=== PATIENT | male | born 1960 | race Caucasian/White ===

== ENCOUNTER 2023-07-27 22:14 | Observation (INO) | payer MEDICARE ==
[2023-07-27] MEDS ORDERED: BUMEX 1 MG IV ONE (22:38)
[2023-07-27] MEDS ORDERED: BUMEX 1 MG ONE (22:42)
[2023-07-27] MEDS ORDERED: Sodium Chloride 0.9% 1000 ML 1,000 ML ONE (22:42)
[2023-07-27] MEDS ORDERED: Sodium Chloride 0.9% 1000 ML 1,000 ML IV SCH (22:45)
--- NOTE | 2023-07-27 22:49 | ERPHSYRPT ---
- History of Present Illness Time Seen by Provider: 07/27/23 22:45 Source: patient Exam Limitations: no limitations Patient Subjective Stated Complaint: pt states that he has been short of breath for the past couple days Triage Nursing Assessment: pt came into the er via wheelchair; pt transferred self to cot; pt is axo x4; c/o SOB; no respiratory distress present; pt is able to talk in complete sentences; dry hacking cough present; clear lung sounds in all lobes; skin PDW; hypertensive Physician History: pt states that he has been short of breath for the past couple days Patient is 62-year-old male with significant past medical history of heart failure COPD recently moved from [place] to [place] 3 months ago. Patient was recently seen at [facility] emergency room for shortness of breath. Patient has never been seen here before. Patient is a poor historian. His main complaint is shortness of breath. He denies any chest pain fever chills nausea or vomiting. He says that he has a history of heart failure and this is the same way he feels when he is feeling up with the fluid. Hx of pacemaker Timing/Duration: day(s) (two days) Severity of Dyspnea-Max: moderate Severity of Dyspnea-Current: moderate Possible Cause: frequent episodes Associated Symptoms: edema, wheezing, ankle swelling, leg swelling, No cough, No chest pain/discomfort, No chills Allergies/Adverse Reactions: diphenhydramine [From Benadryl] Allergy (Verified 07/27/23 22:17) Difficulty Breathing Iodinated Contrast Media Allergy (Verified 07/27/23 22:17) Difficulty Breathing Home Medications: Unobtainable 07/27/23 [History] Hx Tetanus, Diphtheria Vaccination/Date Given: Yes Hx Influenza Vaccination/Date Given: Yes Hx Pneumococcal Vaccination/Date Given: Yes Travel Risk - International Travel Have you traveled outside of the country in past 3 weeks: No - Coronavirus Screening Are you exhibiting any of the following symptoms?: Yes Symptoms: Cough: New Onset, Shortness of Breath Close contact with a COVID-19 positive Pt in past 14-21 Days: No - Vaccine Status Have you recieved a Covid-19 vaccination: Yes 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: [employer] - Vaccination Dates Date of 2cond Vaccination (if applicable): n/a - Review of Systems Constitutional: No Fever, No Chills Eyes: No Symptoms Ears, Nose, & Throat: No Symptoms Respiratory: Dyspnea, Dyspnea on Exertion (TERESA), No Cough Cardiac: Edema, Orthopnea, PND, No Chest Pain, No Syncope Abdominal/Gastrointestinal: No Abdominal Pain, No Nausea, No Vomiting, No Diarrhea Genitourinary Symptoms: No Dysuria Musculoskeletal: No Back Pain, No Neck Pain Skin: No Rash Neurological: No Dizziness, No Focal Weakness, No Sensory Changes Psychological: No Symptoms Endocrine: No Symptoms All Other Systems: Reviewed and Negative - Past Medical History Pertinent Past Medical History: Yes Neurological History: Peripheral Neuropathy ENT History: Cataracts Cardiac History: Arrhythmia, Congestive Heart Failure, Hypertension Respiratory History: Bronchitis, CHF, COPD, Sleep Apnea Endocrine Medical History: Diabetes Type II Musculoskeletal History: Osteoarthritis GI Medical History: GERD History: No Pertinent History Psycho-Social History: Anxiety, Depression Male Reproductive Disorders: No Pertinent History Other Medical History: a.fib, restless leg - Past Surgical History Past Surgical History: Yes Neuro Surgical History: No Pertinent History Cardiac: Pacemaker Respiratory: No Pertinent History Gastrointestinal: Cholecystectomy Genitourinary: No Pertinent History Musculoskeletal: Amputation Male Surgical History: No Pertinent History Other Surgical History: cardiac ablation - Social History Smoking Status: Never smoker Exposure to second hand smoke: Yes Drug Use: none Patient Lives Alone: No - Nursing Vital Signs Nursing Vital Signs: Initial Vital Signs Temperature 97.6 F 07/27/23 22:16 Pulse Rate 76 07/27/23 22:16 Respiratory Rate 20 07/27/23 22:16 Blood Pressure 193/97 07/27/23 22:16 O2 Sat by Pulse Oximetry 99 07/27/23 22:16 Pain Scale Pain Intensity 4 - Physical Exam General Appearance: moderate distress, alert Eye Exam: PERRL/EOMI Neck Exam: normal inspection, supple, full range of motion, JVD, No carotid bruit Respiratory Exam: diminished breath sounds, crackles/rales, rhonchi, wheezing Cardiovascular/Chest Exam: normal heart sounds, regular rate/rhythm, edema, JVD, No gallop Abdominal/Gastrointestinal Exam: soft, No tenderness, No distention, No mass Extremity Exam: non-tender, normal range of motion, normal inspection, no calf tenderness, no pedal edema Neurologic Exam: alert, oriented x 3, cooperative, 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 nml as tested, sensation nml, No motor deficits Skin Exam: normal color, warm, No dry SpO2 Interpretation: normal SpO2: 97 O2 Delivery: Room Air - Course Nursing assessment & vital signs reviewed: Yes EKG Interpreted by Me: Non-specific ST Changes, Other (paced rhythm) - Radiology Exams Chest X-ray Interpretation: Reviewed by me (CHF changes), No Pneumonia Ordered Tests: Active Orders 24 hr Category Date Time Status 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 STAT Care 07/27/23 22:41 Active EKG-ER Only STAT Care 07/27/23 22:38 Active IV Insertion STAT Care 07/27/23 22:38 Active Oxygen-ED Only Nasal Cannula 2 lpm Care 07/27/23 22:38 Active Pulse Oximetry (ED) STAT Care 07/27/23 22:41 Active CHEST 1 VIEW (PORTABLE) Stat Exams 07/27/23 22:39 Taken CBC W DIFF Stat Lab 07/27/23 22:49 Completed CMP Stat Lab 07/27/23 22:49 Completed MAGNESIUM Stat Lab 07/27/23 22:49 Completed NT PRO BNPII Stat Lab 07/27/23 22:49 Completed POCT GLUCOSE Stat Lab 07/27/23 23:38 Completed TROPONIN Q4H Lab 07/27/23 22:49 Completed TROPONIN Q4H Lab 07/28/23 02:45 Ordered TROPONIN Q4H Lab 07/28/23 06:45 Ordered Medication Summary Generic Name Dose Route Start Last Admin Trade Name Freq PRN Reason Stop Dose Admin Sodium Chloride 1,000 mls @ 50 mls/hr 07/27/23 22:45 07/27/23 22:47 Sodium Chloride 0.9% 1000 Ml IV 08/26/23 22:44 50 mls/hr .Q20H JUAN Administration Discontinued Medications Generic Name Dose Route Start Last Admin Trade Name Freq PRN Reason Stop Dose Admin Bumetanide 1 mg 07/27/23 22:38 07/27/23 22:47 Bumetanide 0.25 Mg/Ml 4ml Vial IV 07/27/23 22:39 1 mg STAT ONE Administration Bumetanide Confirm 07/27/23 22:42 Bumetanide 0.25 Mg/Ml 4ml Vial Administered 07/27/23 22:43 Dose 1 mg .ROUTE .STK-MED ONE Insulin Human Regular 20 unit 07/27/23 23:27 Insulin Regular, Human 1 Unit IV 12/02/23 23:28 STAT ONE Insulin Human Regular 10 unit 07/27/23 23:46 Insulin Regular, Human 1 Unit IV 07/27/23 23:47 STAT ONE Lab/Rad Data: Laboratory Result Diagrams 07/27/23 22:49 07/27/23 22:49 Laboratory Results 07/27/23 07/27/23 07/27/23 Range/Units 23:38 22:49 22:49 WBC (4.0-10.5) x10^3/uL RBC (4.1-5.6) x10^6/uL Hgb (12.5-18.0) g/dL Hct (42-50) % MCV (78-100) fL MCH (26-32) pg MCHC (32-36) g/dL RDW (11.5-14.0) % Plt Count (150-450) x10^3/uL MPV (7.5-11.0) fL Gran % (36.0-66.0) % Immature Gran % (Auto) (0.00-0.4) % Nucleat RBC Rel Count (0.00-0.1) % Eos # (Auto) (0-0.5) x10^3/uL Immature Gran # (Auto) (0.00-0.03) x10^3u/L Absolute Lymphs (auto) (1.0-4.6) x10^3/uL Absolute Monos (auto) (0.0-1.3) x10^3/uL Absolute Nucleated RBC (0.00-0.01) x10^3u/L Lymphocytes % (24.0-44.0) % Monocytes % (0.0-12.0) % Eosinophils % (0.00-5.0) % Basophils % (0.0-0.4) % Absolute Granulocytes (1.4-6.9) x10^3/uL Basophils # (0-0.4) x10^3/uL Sodium (137-145) mmol/L Potassium (3.5-5.1) mmol/L Chloride (98-107) mmol/L Carbon Dioxide (22-30) mmol/L Anion Gap (5-15) MEQ/L BUN (9-20) mg/dL Creatinine (0.66-1.25) mg/dL Estimated GFR ML/MIN Glucose (74-106) mg/dL POC Glucometer 374 H (74 to 106) mg/dL Calcium (8.4-10.2) mg/dL Magnesium (1.6-2.3) mg/dL Total Bilirubin (0.2-1.3) mg/dL AST (17-59) U/L ALT (0-50) U/L Alkaline Phosphatase (38-126) U/L Troponin I 0.130 H* (0.000-0.034) ng/mL NT-Pro-B Natriuret Pep 6640 (<300) pg/mL Serum Total Protein (6.3-8.2) g/dL Albumin (3.5-5.0) g/dL 07/27/23 07/27/23 Range/Units 22:49 22:49 WBC 4.8 (4.0-10.5) x10^3/uL RBC 4.25 (4.1-5.6) x10^6/uL Hgb 12.1 L (12.5-18.0) g/dL Hct 38.5 L (42-50) % MCV 90.6 (78-100) fL MCH 28.5 (26-32) pg MCHC 31.4 L (32-36) g/dL RDW 13.0 (11.5-14.0) % Plt Count 219 (150-450) x10^3/uL MPV 10.5 (7.5-11.0) fL Gran % 73.4 H (36.0-66.0) % Immature Gran % (Auto) 0.2 (0.00-0.4) % Nucleat RBC Rel Count 0.0 (0.00-0.1) % Eos # (Auto) 0.04 (0-0.5) x10^3/uL Immature Gran # (Auto) 0.01 (0.00-0.03) x10^3u/L Absolute Lymphs (auto) 0.91 L (1.0-4.6) x10^3/uL Absolute Monos (auto) 0.27 (0.0-1.3) x10^3/uL Absolute Nucleated RBC 0.00 (0.00-0.01) x10^3u/L Lymphocytes % 19.1 L (24.0-44.0) % Monocytes % 5.7 (0.0-12.0) % Eosinophils % 0.8 (0.00-5.0) % Basophils % 0.8 (0.0-0.4) % Absolute Granulocytes 3.50 (1.4-6.9) x10^3/uL Basophils # 0.04 (0-0.4) x10^3/uL Sodium 132 L (137-145) mmol/L Potassium 4.0 (3.5-5.1) mmol/L Chloride 97 L (98-107) mmol/L Carbon Dioxide 28 (22-30) mmol/L Anion Gap 10.7 (5-15) MEQ/L BUN 16 (9-20) mg/dL Creatinine 0.98 (0.66-1.25) mg/dL Estimated GFR 86.1 ML/MIN Glucose 401 H (74-106) mg/dL POC Glucometer (74 to 106) mg/dL Calcium 8.0 L (8.4-10.2) mg/dL Magnesium 1.8 (1.6-2.3) mg/dL Total Bilirubin 0.40 (0.2-1.3) mg/dL AST 44 (17-59) U/L ALT 45 (0-50) U/L Alkaline Phosphatase 178 H (38-126) U/L Troponin I (0.000-0.034) ng/mL NT-Pro-B Natriuret Pep (<300) pg/mL Serum Total Protein 6.6 (6.3-8.2) g/dL Albumin 3.5 (3.5-5.0) g/dL - Progress Progress: improved, re-examined Air Movement: good Progress Note: 07/27/23 23:31 After bumetanide injection patient is feeling much better. Patient's shortness of breath is also much better. Patient has diuresed approximately 1 L. Patient blood sugar was also high so 20 units of Humulin R given. Patient is strongly advised to follow-up with primary care physician for further management of his diabetes and heart failure. Patient he is suggesting that he is going to move back to [place] with his regional doctor. He is still strongly advised to get a primary care physician. Local referrals for physicians given. Patient also understood verbalized instructions. Patient is strongly advised to stay on all the medication including for his diabetes and heart failure. Blood Culture(s) Obtained: No Antibiotics given: No Discussed with : Scot, Other Will see patient in: hospital (observation) Counseled pt/family regarding: lab results, diagnosis, need for follow-up, rad results Medical Desision Making - Social Determinants of Health Pt's dx & treatment plan are significantly limited by SDOH: financial hardships, limited education - Diagnostic Testing Diagnostic test were ordered, analyzed, and reviewed by me: Yes Radiological Interpretation: Interpreted by me, Reviewed by me - Risk of complications The pt has a mod risk of morbidity or mortality based on: Need for prescription drug management The pt has a high risk of morbidity or mortality based on: Decision regarding hospitilization or escalation of hosp level of care - Departure Departure Disposition: Observation Clinical Impression: Elevated troponin Acute exacerbation of CHF (congestive heart failure) Qualifiers: Heart failure type: combined systolic and diastolic Qualified Code(s): I50.43 - Acute on chronic combined systolic (congestive) and diastolic (congestive) heart failure Uncontrolled diabetes mellitus Qualifiers: Diabetes mellitus type: type 2 Glycemic state: with hyperglycemia Qualified Code(s): E11.65 - Type 2 diabetes mellitus with hyperglycemia Condition: Fair Critical Care Time: Yes Critical Care Time(excluding separately billable procedures): Critical 30-74 mins Referrals: DOCTOR,NO FAMILY [Primary Care Provider] - Follow Up with PCP/3 days Instructions: Heart Failure, Type 2 diabetes, Heart Failure, Adult (DC)
[2023-07-27 22:54] LABS: BASOPHIL % 0.8 % (0.0-0.4); Basophil (Absolute #) 0.04 x10^3/uL (0-0.4); Eosinophil % 0.8 % (0.00-5.0); Eosinophil (Absolute #) 0.04 x10^3/uL (0-0.5); Hematocrit 38.5 % (42-50); Hemoglobin 12.1 g/dL (12.5-18.0); IMMATURE GRAN # 0.01 x10^3u/L (0.00-0.03); IMMATURE GRAN % 0.2 % (0.00-0.4); Lymphocyte (Absolute #) 0.91 x10^3/uL (1.0-4.6); Lymphocytes % 19.1 % (24.0-44.0); Mean Cell Volume 90.6 fL (78-100); Mean Corpuscular Hemoglobin 28.5 pg (26-32); Mean Corpuscular Hgb Concent. 31.4 g/dL (32-36); Mean Platelet Volume 10.5 fL (7.5-11.0); Monocyte (Absolute #) 0.27 x10^3/uL (0.0-1.3); Monocytes % 5.7 % (0.0-12.0); Neutrophil % 73.4 % (36.0-66.0); Platelet Count 219 x10^3/uL (150-450); Red Blood Count 4.25 x10^6/uL (4.1-5.6); White Blood Count 4.8 x10^3/uL (4.0-10.5)
[2023-07-27 23:06] LABS: ALBUMIN 3.5 g/dL (3.5-5.0); ANION GAP 10.7 MEQ/L (5-15); BILIRUBIN,TOTAL 0.4 mg/dL (0.2-1.3); Creatinine 1 0.98 mg/dL (0.66-1.25); EST GLOMERULAR FILTRATION RATE 86.1 ML/MIN; MAGNESIUM 1.8 mg/dL (1.6-2.3); Total Protein 6.6 g/dL (6.3-8.2)
[2023-07-27] MEDS ORDERED: HUMULIN R IV ONE ×2 (23:27→23:46)
[2023-07-27] MEDS ORDERED: HUMULIN R ONE (23:52)
--- NOTE | 2023-07-28 00:26 | PCM.HP ---
History of Present Illness - Chief Complaint Chief Complaint: CHF Exacerbation History of Present Illness: is a 62 year old male with CHF, DM2 who presents with acute on chronic CHF with SOB, lower extremity swelling. No chest pain, nausea, vomiting, fevers, chills. Recieved diruretics in the ED and symptoms improved. - Review of Systems Constitutional: No Fever, No Chills Eyes: No Symptoms Ears, Nose, & Throat: No Symptoms Respiratory: No Cough, No Short Of Breath Cardiac: No Chest Pain, No Edema, No Syncope Abdominal/Gastrointestinal: No Abdominal Pain, No Nausea, No Vomiting, No Diarrhea Genitourinary Symptoms: No Dysuria Musculoskeletal: No Back Pain, No Neck Pain Skin: No Rash Neurological: No Dizziness, No Focal Weakness, No Sensory Changes Psychological: No Symptoms Endocrine: No Symptoms Hematologic/Lymphatic: No Symptoms Immunological/Allergic: No Symptoms Medications & Allergies Home Medications: Home Medication List Unobtainable 07/27/23 [History Confirmed 07/27/23] Allergies/Adverse Reactions: Allergies Allergy/AdvReac Type Severity Reaction Status Date / Time diphenhydramine Allergy Difficulty Verified 07/27/23 22:17 [From Benadryl] Breathing Iodinated Contrast Media Allergy Difficulty Verified 07/27/23 22:17 Breathing - Past Medical History Past Medical History: Yes Neurological History: Peripheral Neuropathy ENT History: Cataracts Cardiac History: Arrhythmia, Congestive Heart Failure, Hypertension Respiratory History: Bronchitis, CHF, COPD, Sleep Apnea Endocrine Medical History: Diabetes Type II Musculoskelatal History: Osteoarthritis GI Medical History: GERD History: No Pertinent History Pyscho-Social History: Anxiety, Depression Male Reproductive Disorders: No Pertinent History Comment: a.fib, restless leg - Past Surgical History Past Surgical History: Yes Neuro Surgical History: No Pertinent History Cardiac History: Pacemaker Respiratory Surgery: No Pertinent History GI Surgical History: Cholecystectomy Genitourinary Surgical Hx: No Pertinent History Musculskeletal Surgical Hx: Amputation Male Surgical History: No Pertinent History Other Surgical History: cardiac ablation - Social History Smoking Status: Never smoker Exposure to second hand smoke: Yes Alcohol: None Drug Use: none - Physical Exam Vital Signs: Vital Signs - 24 hr Temp Pulse Resp BP BP Pulse Ox 07/27/23 23:54 97 07/27/23 23:30 80 23 142/81 97 07/27/23 23:00 78 17 148/96 96 07/27/23 22:41 97 07/27/23 22:30 82 22 170/108 97 07/27/23 22:16 97.6 F 76 24 193/97 99 General Appearance: no apparent distress, alert Neurologic Exam: alert, oriented x 3, cooperative, normal mood/affect, nml cerebellar function, nml station & gait, sensation nml, No motor deficits Eye Exam: PERRL/EOMI, eyes nml inspection Ears, Nose, Throat Exam: normal ENT inspection, TMs normal, pharynx normal, moist mucous membranes Neck Exam: normal inspection, non-tender, supple, full range of motion Respiratory Exam: normal breath sounds, lungs clear, No respiratory distress Cardiovascular Exam: regular rate/rhythm, normal heart sounds, normal peripheral pulses Gastrointestinal/Abdomen Exam: soft, normal bowel sounds, No tenderness, No mass Back Exam: normal inspection, normal range of motion, No CVA tenderness, No vertebral tenderness Extremity Exam: normal inspection, normal range of motion, pelvis stable Skin Exam: normal color, warm, dry, No rash Lymphatic Exam: No adenopathy Results - Labs Lab/Micro Results: Lab Results-Last 24 Hours 07/27/23 07/27/23 07/27/23 Range/Units 22:49 22:49 22:49 WBC 4.8 (4.0-10.5) x10^3/uL RBC 4.25 (4.1-5.6) x10^6/uL Hgb 12.1 L (12.5-18.0) g/dL Hct 38.5 L (42-50) % MCV 90.6 (78-100) fL MCH 28.5 (26-32) pg MCHC 31.4 L (32-36) g/dL RDW 13.0 (11.5-14.0) % Plt Count 219 (150-450) x10^3/uL MPV 10.5 (7.5-11.0) fL Gran % 73.4 H (36.0-66.0) % Immature Gran % (Auto) 0.2 (0.00-0.4) % Nucleat RBC Rel Count 0.0 (0.00-0.1) % Eos # (Auto) 0.04 (0-0.5) x10^3/uL Immature Gran # (Auto) 0.01 (0.00-0.03) x10^3u/L Absolute Lymphs (auto) 0.91 L (1.0-4.6) x10^3/uL Absolute Monos (auto) 0.27 (0.0-1.3) x10^3/uL Absolute Nucleated RBC 0.00 (0.00-0.01) x10^3u/L Lymphocytes % 19.1 L (24.0-44.0) % Monocytes % 5.7 (0.0-12.0) % Eosinophils % 0.8 (0.00-5.0) % Basophils % 0.8 (0.0-0.4) % Absolute Granulocytes 3.50 (1.4-6.9) x10^3/uL Basophils # 0.04 (0-0.4) x10^3/uL Sodium 132 L (137-145) mmol/L Potassium 4.0 (3.5-5.1) mmol/L Chloride 97 L (98-107) mmol/L Carbon Dioxide 28 (22-30) mmol/L Anion Gap 10.7 (5-15) MEQ/L BUN 16 (9-20) mg/dL Creatinine 0.98 (0.66-1.25) mg/dL Estimated GFR 86.1 ML/MIN Glucose 401 H (74-106) mg/dL POC Glucometer (74 to 106) mg/dL Calcium 8.0 L (8.4-10.2) mg/dL Magnesium 1.8 (1.6-2.3) mg/dL Total Bilirubin 0.40 (0.2-1.3) mg/dL AST 44 (17-59) U/L ALT 45 (0-50) U/L Alkaline Phosphatase 178 H (38-126) U/L Troponin I 0.130 H* (0.000-0.034) ng/mL NT-Pro-B Natriuret Pep (<300) pg/mL Serum Total Protein 6.6 (6.3-8.2) g/dL Albumin 3.5 (3.5-5.0) g/dL 07/27/23 07/27/23 Range/Units 22:49 23:38 WBC (4.0-10.5) x10^3/uL RBC (4.1-5.6) x10^6/uL Hgb (12.5-18.0) g/dL Hct (42-50) % MCV (78-100) fL MCH (26-32) pg MCHC (32-36) g/dL RDW (11.5-14.0) % Plt Count (150-450) x10^3/uL MPV (7.5-11.0) fL Gran % (36.0-66.0) % Immature Gran % (Auto) (0.00-0.4) % Nucleat RBC Rel Count (0.00-0.1) % Eos # (Auto) (0-0.5) x10^3/uL Immature Gran # (Auto) (0.00-0.03) x10^3u/L Absolute Lymphs (auto) (1.0-4.6) x10^3/uL Absolute Monos (auto) (0.0-1.3) x10^3/uL Absolute Nucleated RBC (0.00-0.01) x10^3u/L Lymphocytes % (24.0-44.0) % Monocytes % (0.0-12.0) % Eosinophils % (0.00-5.0) % Basophils % (0.0-0.4) % Absolute Granulocytes (1.4-6.9) x10^3/uL Basophils # (0-0.4) x10^3/uL Sodium (137-145) mmol/L Potassium (3.5-5.1) mmol/L Chloride (98-107) mmol/L Carbon Dioxide (22-30) mmol/L Anion Gap (5-15) MEQ/L BUN (9-20) mg/dL Creatinine (0.66-1.25) mg/dL Estimated GFR ML/MIN Glucose (74-106) mg/dL POC Glucometer 374 H (74 to 106) mg/dL Calcium (8.4-10.2) mg/dL Magnesium (1.6-2.3) mg/dL Total Bilirubin (0.2-1.3) mg/dL AST (17-59) U/L ALT (0-50) U/L Alkaline Phosphatase (38-126) U/L Troponin I (0.000-0.034) ng/mL NT-Pro-B Natriuret Pep 6640 (<300) pg/mL Serum Total Protein (6.3-8.2) g/dL Albumin (3.5-5.0) g/dL - Radiology Impressions Radiology Exams & Impressions: Radiology Procedures Category Date Time Status CHEST 1 VIEW (PORTABLE) Stat Exams 07/27/23 22:39 Taken Assessment/Plan (1) Acute exacerbation of CHF (congestive heart failure) Current Visit: Yes Status: Acute Qualifiers: Heart failure type: combined systolic and diastolic Qualified Code(s): I50.43 - Acute on chronic combined systolic (congestive) and diastolic (congestive) heart failure Assessment & Plan: 1. Lasix 20 mg IV BID 2. Will need to do CHF education, will need start BB, Statin, KERMIT-I. Can consider in the AM and defer rest to outpatient. 3. I*Os Code(s): I50.9 - HEART FAILURE, UNSPECIFIED Telemedicine Encounter - Telemedicine Encounter Telemedicine Encounter: The entirety of this encounter was performed via Telemedicine"
[2023-07-28] MEDS ORDERED: VENTOLIN COMMON CANISTER IH PRN (04:45)
[2023-07-28 06:16] LABS: Hematocrit 36.5 % (42-50); Hemoglobin 11.4 g/dL (12.5-18.0); Mean Cell Volume 88.4 fL (78-100); Mean Corpuscular Hemoglobin 27.6 pg (26-32); Mean Corpuscular Hgb Concent. 31.2 g/dL (32-36); Platelet Count 204 x10^3/uL (150-450); Red Blood Count 4.13 x10^6/uL (4.1-5.6); Red Cell Distribution Width 12.9 % (11.5-14.0); White Blood Count 5.8 x10^3/uL (4.0-10.5)
[2023-07-28 06:49] LABS: ALBUMIN 3.2 g/dL (3.5-5.0); ANION GAP 10.7 MEQ/L (5-15); BILIRUBIN,TOTAL 0.4 mg/dL (0.2-1.3); Calcium 8.1 mg/dL (8.4-10.2); Creatinine 1 0.93 mg/dL (0.66-1.25); EST GLOMERULAR FILTRATION RATE 91.7 ML/MIN; Potassium 3.8 mmol/L (3.5-5.1); Total Protein 6.3 g/dL (6.3-8.2)
--- NOTE | 2023-07-28 08:03 | XRAY ---
Indication: Short of breath. Comparison: None Portable apical lordotic chest demonstrates borderline cardiomegaly, left pacemaker, mild pulmonary edema, and tiny bibasilar effusions. Mild/early cardiac decompensation offered for clinical consideration. Superposed pneumonia not completely excluded. Bony thorax intact.
[2023-07-28] MEDS ORDERED: Lasix 40 MG/4 ML IV ONE (08:30)
[2023-07-28] MEDS ORDERED: Zofran 4 MG/2 ML VIAL IV PRN (08:46)
[2023-07-28] MEDS ORDERED: Lasix 20 MG/2 ML IV SCH (10:00)
--- NOTE | 2023-07-28 10:02 | PCM.NOTE ---
Met with patient bedside. Endorses shortness of breath, cough with clear sputum, abdominal discomfort/distention, BLE tightness/edema and scrotal swelling. On exam BLE edema noted with multiple open wounds in various degrees of healing. Abdomen is distended and firm. Scrotal edema noted. Lasix 40mg ordered BID, lisinopril 10mg QD, lovenox prophylactic dosing, echo, doppler BLE, abd us, CT c/a/p. SSI moderate dosing with lantus 20u (may need adjustmentO. A1c noted at 13.56, patient needs diabetic education. Diet changed to low carb. Cards consult has been requested with echo pending. Trops are uptrending, EKG unremarkable. Attempting to obtain home med list as patient is poor historian and new to the area. Patient denies alcohol, drug use, or h/o smoking. Does have pmhx of DM, OA, KASHMIR, HTN, arrhythmias (with pacemaker), and GERD.
--- NOTE | 2023-07-28 10:33 | XRAY ---
CLINICAL HISTORY:anasarca COMPARISON:None. TECHNIQUE:A CT scan of the abdomen and pelvis was performed without IV contrast. Coronal and sagittal reconstructive images were also obtained. FINDINGS: Diffuse subcutaneous fat stranding was seen. Diffuse mesenteric fat stranding is also seen. Moderate bilateral pleural effusion was seen. The liver is normal in size. No focal or diffuse parenchymal abnormality. The portal vein, intrahepatic biliary radicals and the bile ducts are normal. Both adrenal glands are unremarkable. Tiny calcific foci seen in the spleen are likely benign. Almost complete fatty atrophy of the pancreas was seen. 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 Otherwise, the kidneys are unremarkable. They are normal in size and shape. No calculi or hydronephrosis. Status post cholecystectomy. The visualized small and large bowel loops are unremarkable. Fat-containing inguinal hernia seen on the left side. There is no evidence of significant enlargement of the mesenteric or retroperitoneal lymph nodes. The urinary bladder is unremarkable. The prostate is unremarkable. Vas deferns calcification is noted. No ascites seen. No evidence of pelvic lymphadenopathy. Moderate degenerative changes are seen in the visualized spine. IMPRESSION: Diffuse subcutaneous fat stranding was seen. Diffuse mesenteric fat stranding is also seen. Moderate bilateral pleural effusion was seen. Duplex right kidney. Almost complete fatty atrophy of the pancreas was seen. Fat containing left inguinal hernia. Electronically Signed by: Brandin Miles MD. (07/28/2023 10:28:52 EST)
[2023-07-28] MEDS: Zestril 10 MG PO SCH (10:52)
[2023-07-28] MEDS: ENOXAPARIN SODIUM SQ SCH (10:54)
[2023-07-28] MEDS: Cyclobenzaprine 10 MG PO PRN ×2 (11:41→19:57)
--- NOTE | 2023-07-28 11:44 | XRAY ---
CLINICAL HISTORY:anasarca COMPARISON:None. TECHNIQUE:Axial CT cuts were taken through the chest with multiplanar reformatting and without contrast administration. FINDINGS: Moderate bilateral pleural effusion with underlying basal relaxation colpase at the lower lung lobes. Right lower lung lobe anterior segment small calcified granulomas. Left side pacemaker with intact metallic lead. Enlarged cardiac size. The vascular pattern appears normal with no evidence of bronchovascular distortion. No significant hilar or mediastinal lymph kathy enlargement. Bone window settings showed thoracic spondylotic changes, osteopenia, mild anterior wedging of the lower thoracic vertebrae, and vacuum phenomenon at T12/L1 disc. Diffuse chest wall subcutaneous edema and fatty stranding. The scanned upper abdomen shows a fatty atrophic pancreas and post-cholecystectomy. IMPRESSION: 1. Moderate bilateral pleural effusion with underlying basal relaxation colpase at the lower lung lobes. 2. Right lower lung lobe anterior segment small calcified granulomas. 3. Enlarged cardiac size. 4. Diffuse chest wall subcutaneous edema and fatty stranding. Electronically Signed by: Brandin Miles MD. (07/28/2023 11:39:31 EST)
[2023-07-28] MEDS ORDERED: PROVENTIL 2.5 MG/3 ML NEB IH PRN (15:51)
[2023-07-28] MEDS ORDERED: PROVENTIL 2.5 MG/3 ML NEB IH ONE (15:52)
[2023-07-28] MEDS: Lasix 40 MG/4 ML IV SCH (18:05)
[2023-07-28] MEDS: HUMALOG SQ PRN ×2 (18:05→21:45)
[2023-07-28] MEDS ORDERED: Cymbalta 30 MG Capsule ONE (19:46)
[2023-07-28] MEDS: REQUIP 2MG TAB PO SCH (19:56)
[2023-07-28] MEDS: TYLENOL 325 MG PO PRN (19:57)
[2023-07-28] MEDS: Cymbalta 30 MG Capsule PO SCH (20:18)
[2023-07-28] MEDS ORDERED: Ativan 2 MG/1 ML VIAL IV PRN (21:30)
[2023-07-28] MEDS ORDERED: Cymbalta 30 MG Capsule PO SCH (22:00)
[2023-07-28] MEDS ORDERED: NON-FORMULARY ITEM (Duloxetine Hcl [Cymbalta] 60 MG Capsule.Dr) PO SCH (22:00)
[2023-07-28] MEDS ORDERED: Coreg 3.125 MG PO SCH (22:00)
[2023-07-28] MEDS: Lantus Insulin SQ SCH (23:32)
[2023-07-29 04:57] LABS: Absolute Neutrophil Ct (ANC) 3.07 x10^3/uL (1.4-6.9); BASOPHIL % 1.1 % (0.0-0.4); Basophil (Absolute #) 0.05 x10^3/uL (0-0.4); Eosinophil (Absolute #) 0.09 x10^3/uL (0-0.5); Hematocrit 35.5 % (42-50); Hemoglobin 11.1 g/dL (12.5-18.0); Lymphocyte (Absolute #) 0.97 x10^3/uL (1.0-4.6); Lymphocytes % 21.4 % (24.0-44.0); Mean Cell Volume 89.2 fL (78-100); Mean Corpuscular Hemoglobin 27.9 pg (26-32); Mean Corpuscular Hgb Concent. 31.3 g/dL (32-36); Mean Platelet Volume 10.2 fL (7.5-11.0); Monocyte (Absolute #) 0.35 x10^3/uL (0.0-1.3); Monocytes % 7.7 % (0.0-12.0); Neutrophil % 67.8 % (36.0-66.0); Platelet Count 204 x10^3/uL (150-450); Red Blood Count 3.98 x10^6/uL (4.1-5.6); Red Cell Distribution Width 13.4 % (11.5-14.0); White Blood Count 4.5 x10^3/uL (4.0-10.5)
[2023-07-29 05:23] LABS: ALBUMIN 3.1 g/dL (3.5-5.0); ANION GAP 10.6 MEQ/L (5-15); BILIRUBIN,TOTAL 0.4 mg/dL (0.2-1.3); Calcium 8.3 mg/dL (8.4-10.2); Creatinine 1 1.05 mg/dL (0.66-1.25); EST GLOMERULAR FILTRATION RATE 79.3 ML/MIN; MAGNESIUM 1.8 mg/dL (1.6-2.3); Potassium 3.1 mmol/L (3.5-5.1); Total Protein 6.1 g/dL (6.3-8.2)
[2023-07-29 05:35] LABS: Risk Ratio 2.1
[2023-07-29] MEDS ORDERED: Klor Con PO ONE (08:30)
[2023-07-29] MEDS: Cymbalta 30 MG Capsule PO SCH ×2 (09:17→21:31)
[2023-07-29] MEDS: Vitamin B-12 500 MCG PO SCH (09:17)
[2023-07-29] MEDS: Protonix 40MG Tablet PO SCH (09:17)
[2023-07-29] MEDS: Zestril 10 MG PO SCH (09:17)
[2023-07-29] MEDS: ENOXAPARIN SODIUM SQ SCH (09:18)
[2023-07-29] MEDS: Cyclobenzaprine 10 MG PO PRN (09:18)
[2023-07-29] MEDS: Lasix 40 MG/4 ML IV SCH ×2 (09:18→17:31)
[2023-07-29] MEDS ORDERED: Valium 5 MG PO PRN (09:32)
[2023-07-29] MEDS ORDERED: NON-FORMULARY ITEM (Cyanocobalamin (Vitamin B-12) [B-12] 1,000 MCG Tablet) PO SCH (10:00)
[2023-07-29] MEDS ORDERED: NON-FORMULARY ITEM (Omeprazole [Omeprazole] 40 MG Capsule.Dr) PO SCH (10:00)
--- NOTE | 2023-07-29 11:25 | PCM.NOTE ---
Date and Time: 07/29/23 1108 Subjective Assessment: is a 62 year old male with PMHx of OA, KASHMIR, HTN, CHF, DM2, arrthymias, pacemaker, and GERD. He presented 07/28/23 with acute on chronic CHF with SOB, lower extremity swelling. No chest pain, nausea, vomiting, fevers, chills. Received diuretics in the ED and symptoms improved. Shortness of breath has improved since admission. Endorses cough with clear sputum, abdominal discomfort/distention, BLLE tightness/edema and scrotal swelling. Abd distention and scrotal edema improved overnight. On exam BLLE edema noted with multiple open wounds in various degrees of healing. He also has a blister on the palm of his hand and sores in various stages of healing on fingers. Continue Lasix 40mg BID. Pt is scheduled today for echo, doppler BLLE, abd us, and cardiology consult. A1c noted at 13.56, patient needs diabetic education. He explains A1C has improved from last time checked. Trops trended up, EKG unremarkable, denies CP. Patient is poor historian and new to the area. He is agreeable to seeing a PCP with COUNTS INCLUDE 234 BEDS AT THE [facility]. Patient denies alcohol, drug use, or h/o smoking. Pt states he feels very anxious today and breathing techniques taught to reduce sxs. UDS ordered for further evaluation. Pt denies CP, SOB, abd. pain, N/V/D. - Review of Systems Constitutional: No Fever, No Chills Eyes: No Symptoms Ears, Nose, & Throat: No Symptoms Respiratory: No Cough, No Short Of Breath Cardiac: Edema, No Chest Pain, No Syncope Abdominal/Gastrointestinal: No Abdominal Pain, No Nausea, No Vomiting, No Diarrhea Genitourinary Symptoms: No Dysuria Musculoskeletal: No Back Pain, No Neck Pain Skin: Skin Lesions (Lesions in mutiple stages of healing on hands, fingers, and BLLE. ), No Rash Neurological: No Dizziness, No Focal Weakness, No Sensory Changes Psychological: No Symptoms, Anxiety Endocrine: No Symptoms Hematologic/Lymphatic: No Symptoms Immunological/Allergic: No Symptoms Objective Exam General Appearance: alert, anxiety Neurologic Exam: alert, oriented x 3, cooperative, normal mood/affect, nml cerebellar function, sensation nml, No motor deficits Skin Exam: normal color, warm, dry, other (Lesions in mutiple stages of healing on hands, fingers, and BLLE) Wound Assessment: Skin/Wound Assessment Wound/Incision Assessment Start: 07/28/23 01:41 Text: Status: Active Freq: Q6H Protocol: Document 07/29/23 08:00 KD (Rec: 07/29/23 08:47 KD [id number]) Co-Sign 07/29/23 08:00 AW Wound/Incision Assessment Left Hand Wound Assessment Shift Assessment Wound Type Blister Wound Stage Non Pressure Wound Dressing Status Dry & Intact Primary Dressing Gauze Pads Secondary Dressing Gauze Roll/Wrap Comment Blister on left palm of hand per pt report, dressing not removed at this time bilateral legs Wound Assessment Shift Assessment Wound Type diabetic ulcerations Wound Stage Non Pressure Wound General Appearance Open to air Comment bilateral shins have scabs and ulcerations on them that are in the healing stages. Wound Photo Photo Taken Yes Date: 07/28/23 Time: 01:15 Comment: Pictures in patient's chart. Eye Exam: PERRL, EOMI, eyes nml inspection Ears, Nose, Throat Exam: normal ENT inspection, pharynx normal, moist mucous membranes Neck Exam: normal inspection, non-tender, supple, full range of motion Respiratory Exam: normal breath sounds, lungs clear, No respiratory distress Cardiovascular Exam: regular rate/rhythm, normal heart sounds, edema (+3 pitting edema BLLE) Gastrointestinal/Abdomen Exam: soft, normal bowel sounds, distention, No tenderness, No mass Extremity Exam: normal range of motion, parasthesia (Muscle spasms and diabetic neuropathy of BLLE.), other (Lesions in mutiple stages of healing on hands, fingers, and BLLE) Back Exam: normal inspection, normal range of motion, No CVA tenderness, No vertebral tenderness Male Genitalia Exam: testicular tenderness ( and edema) Rectal Exam: deferred OBJECTIVE DATA Vital Signs: Vital Signs - 24 hr Temp Pulse Resp BP BP Pulse Ox 07/29/23 08:44 77 18 95 07/29/23 07:10 97.5 F 77 17 155/90 93 L 07/29/23 03:56 97.3 F 78 16 179/86 95 07/28/23 23:27 97.3 F 88 20 143/83 95 07/28/23 21:33 77 18 153/76 07/28/23 20:00 97.2 F 77 18 153/73 94 L 07/28/23 19:56 76 18 95 07/28/23 16:00 96.7 F 79 18 145/90 92 L 07/28/23 15:58 92 H 22 96 07/28/23 12:00 96.8 F 88 27 H 164/98 98 Pain Assessment - Last Documented Pain Intensity 5 Pain Scale Used 0-10 Pain Scale Intake and Output: Intake & Output 07/26/23 07/27/23 07/28/23 07/29/23 11:59 11:59 11:59 11:59 Intake Total 120 515 Output Total 550 5250 Balance -430 -4730 Weight 97.7 kg Lab Results: Lab Results-Last 24 Hours 07/28/23 07/28/23 07/28/23 Range/Units 06:16 11:50 16:54 WBC (4.0-10.5) x10^3/uL RBC (4.1-5.6) x10^6/uL Hgb (12.5-18.0) g/dL Hct (42-50) % MCV (78-100) fL MCH (26-32) pg MCHC (32-36) g/dL RDW (11.5-14.0) % Plt Count (150-450) x10^3/uL MPV (7.5-11.0) fL Gran % (36.0-66.0) % Immature Gran % (Auto) (0.00-0.4) % Nucleat RBC Rel Count (0.00-0.1) % Eos # (Auto) (0-0.5) x10^3/uL Immature Gran # (Auto) (0.00-0.03) x10^3u/L Absolute Lymphs (auto) (1.0-4.6) x10^3/uL Absolute Monos (auto) (0.0-1.3) x10^3/uL Absolute Nucleated RBC (0.00-0.01) x10^3u/L Lymphocytes % (24.0-44.0) % Monocytes % (0.0-12.0) % Eosinophils % (0.00-5.0) % Basophils % (0.0-0.4) % Absolute Granulocytes (1.4-6.9) x10^3/uL Basophils # (0-0.4) x10^3/uL Sodium (137-145) mmol/L Potassium (3.5-5.1) mmol/L Chloride (98-107) mmol/L Carbon Dioxide (22-30) mmol/L Anion Gap (5-15) MEQ/L BUN (9-20) mg/dL Creatinine (0.66-1.25) mg/dL Estimated GFR ML/MIN Glucose (74-106) mg/dL POC Glucometer 91 217 H (74 to 106) mg/dL Calcium (8.4-10.2) mg/dL Magnesium (1.6-2.3) mg/dL Total Bilirubin (0.2-1.3) mg/dL AST (17-59) U/L ALT (0-50) U/L Alkaline Phosphatase (38-126) U/L Serum Total Protein (6.3-8.2) g/dL Albumin (3.5-5.0) g/dL Triglycerides (30-150) mg/dL Cholesterol (50-200) mg/dL LDL Cholesterol (30-100) mg/dL HDL Cholesterol (40-60) mg/dL Heart Disease Risk Ratio TSH 3rd Generation 3.160 (0.47-4.68) mIU/L 07/28/23 07/28/23 07/29/23 Range/Units 21:38 23:14 04:35 WBC 4.5 (4.0-10.5) x10^3/uL RBC 3.98 L (4.1-5.6) x10^6/uL Hgb 11.1 L (12.5-18.0) g/dL Hct 35.5 L (42-50) % MCV 89.2 (78-100) fL MCH 27.9 (26-32) pg MCHC 31.3 L (32-36) g/dL RDW 13.4 (11.5-14.0) % Plt Count 204 (150-450) x10^3/uL MPV 10.2 (7.5-11.0) fL Gran % 67.8 H (36.0-66.0) % Immature Gran % (Auto) 0.0 (0.00-0.4) % Nucleat RBC Rel Count 0.0 (0.00-0.1) % Eos # (Auto) 0.09 (0-0.5) x10^3/uL Immature Gran # (Auto) 0.00 (0.00-0.03) x10^3u/L Absolute Lymphs (auto) 0.97 L (1.0-4.6) x10^3/uL Absolute Monos (auto) 0.35 (0.0-1.3) x10^3/uL Absolute Nucleated RBC 0.00 (0.00-0.01) x10^3u/L Lymphocytes % 21.4 L (24.0-44.0) % Monocytes % 7.7 (0.0-12.0) % Eosinophils % 2.0 (0.00-5.0) % Basophils % 1.1 (0.0-0.4) % Absolute Granulocytes 3.07 (1.4-6.9) x10^3/uL Basophils # 0.05 (0-0.4) x10^3/uL Sodium (137-145) mmol/L Potassium (3.5-5.1) mmol/L Chloride (98-107) mmol/L Carbon Dioxide (22-30) mmol/L Anion Gap (5-15) MEQ/L BUN (9-20) mg/dL Creatinine (0.66-1.25) mg/dL Estimated GFR ML/MIN Glucose (74-106) mg/dL POC Glucometer 244 H 135 H (74 to 106) mg/dL Calcium (8.4-10.2) mg/dL Magnesium (1.6-2.3) mg/dL Total Bilirubin (0.2-1.3) mg/dL AST (17-59) U/L ALT (0-50) U/L Alkaline Phosphatase (38-126) U/L Serum Total Protein (6.3-8.2) g/dL Albumin (3.5-5.0) g/dL Triglycerides (30-150) mg/dL Cholesterol (50-200) mg/dL LDL Cholesterol (30-100) mg/dL HDL Cholesterol (40-60) mg/dL Heart Disease Risk Ratio TSH 3rd Generation (0.47-4.68) mIU/L 07/29/23 07/29/23 07/29/23 Range/Units 04:35 04:35 07:01 WBC (4.0-10.5) x10^3/uL RBC (4.1-5.6) x10^6/uL Hgb (12.5-18.0) g/dL Hct (42-50) % MCV (78-100) fL MCH (26-32) pg MCHC (32-36) g/dL RDW (11.5-14.0) % Plt Count (150-450) x10^3/uL MPV (7.5-11.0) fL Gran % (36.0-66.0) % Immature Gran % (Auto) (0.00-0.4) % Nucleat RBC Rel Count (0.00-0.1) % Eos # (Auto) (0-0.5) x10^3/uL Immature Gran # (Auto) (0.00-0.03) x10^3u/L Absolute Lymphs (auto) (1.0-4.6) x10^3/uL Absolute Monos (auto) (0.0-1.3) x10^3/uL Absolute Nucleated RBC (0.00-0.01) x10^3u/L Lymphocytes % (24.0-44.0) % Monocytes % (0.0-12.0) % Eosinophils % (0.00-5.0) % Basophils % (0.0-0.4) % Absolute Granulocytes (1.4-6.9) x10^3/uL Basophils # (0-0.4) x10^3/uL Sodium 135 L (137-145) mmol/L Potassium 3.1 L (3.5-5.1) mmol/L Chloride 101 (98-107) mmol/L Carbon Dioxide 26 (22-30) mmol/L Anion Gap 10.6 (5-15) MEQ/L BUN 18 (9-20) mg/dL Creatinine 1.05 (0.66-1.25) mg/dL Estimated GFR 79.3 ML/MIN Glucose 76 (74-106) mg/dL POC Glucometer 81 (74 to 106) mg/dL Calcium 8.3 L (8.4-10.2) mg/dL Magnesium 1.8 (1.6-2.3) mg/dL Total Bilirubin 0.40 (0.2-1.3) mg/dL AST 37 (17-59) U/L ALT 35 (0-50) U/L Alkaline Phosphatase 110 (38-126) U/L Serum Total Protein 6.1 L (6.3-8.2) g/dL Albumin 3.1 L (3.5-5.0) g/dL Triglycerides 63 (30-150) mg/dL Cholesterol 128 (50-200) mg/dL LDL Cholesterol 60 (30-100) mg/dL HDL Cholesterol 62 H (40-60) mg/dL Heart Disease Risk Ratio 2.1 TSH 3rd Generation (0.47-4.68) mIU/L Radiology Exams: Radiology Procedures Category Date Time Status ABDOMEN AND PELVIS W/0 CONTRAS [CT] Stat Exams 07/28/23 08:38 Completed CHEST 1 VIEW (PORTABLE) Stat Exams 07/27/23 22:39 Completed CHEST WITHOUT CONTRAST [CT] Stat Exams 07/28/23 08:38 Completed ECHO W/2D AND DOPPLER [US] Routine Exams 07/29/23 08:00 Ordered US ABDOMEN LIMITED [ABDOMINAL-LIMITED] [US] Routine Exams 07/29/23 09:51 Ordered VENOUS BILATERAL EXTREMITY [US] Urgent Exams 07/29/23 08:53 Ordered Assessment/Plan (1) Acute exacerbation of CHF (congestive heart failure) Current Visit: Yes Status: Acute Qualifiers: Heart failure type: combined systolic and diastolic Qualified Code(s): I50.43 - Acute on chronic combined systolic (congestive) and diastolic (congestive) heart failure Assessment & Plan: - EKG reviewed - room air - Lasix 20 mg IV BID - BNP 6640 - CHF education - Heart healthy diet - Mg+ >2, K+ > 4 - Tele - start BB, Statin, KERMIT-I. - I&Os - Cardiology consult - Echo - TSH- 3.160 - Lipid panel reviewed - PT/OT - Chest XR 07/27/23 Portable apical lordotic chest demonstrates borderline cardiomegaly, left pacemaker, mild pulmonary edema, and tiny bibasilar effusions. Mild/early cardiac decompensation offered for clinical consideration. Superposed pneumonia not completely excluded. Bony thorax intact - Chest CT 07/28/23 IMPRESSION: 1. Moderate bilateral pleural effusion with underlying basal relaxation colpase at the lower lung lobes. 2. Right lower lung lobe anterior segment small calcified granulomas. 3. Enlarged cardiac size. 4. Diffuse chest wall subcutaneous edema and fatty stranding Code(s): I50.9 - HEART FAILURE, UNSPECIFIED (2) Anxiety Current Visit: Yes Status: Acute Assessment & Plan: - UDS - breathing techniques taught -PRN Ativan gave overnight- pt stated it made him groggy - 1 X dose of Valium gave today before procedures as pt stated he will not be able to hold still if he does not have something. - Hydroxyzine PRN Code(s): F41.9 - ANXIETY DISORDER, UNSPECIFIED (3) Skin abnormalities Current Visit: Yes Status: Acute Assessment & Plan: - Multiple lesions on BLLE and BL hands in various stages of healing - will need to f/u with dermatology OP. - VD BLLE 07/29/23: Left and right legs grossly negative for DVT. Code(s): L98.9 - DISORDER OF THE SKIN AND SUBCUTANEOUS TISSUE, UNSPECIFIED (4) HTN (hypertension) Current Visit: Yes Status: Acute Assessment & Plan: - Stable- monitor - Continue Lisinopril, and Coreg Code(s): I10 - ESSENTIAL (PRIMARY) HYPERTENSION (5) Hyponatremia Current Visit: Yes Status: Acute Assessment & Plan: - Mild Na+ 135- trend Code(s): E87.1 - HYPO-OSMOLALITY AND HYPONATREMIA (6) Hypokalemia Current Visit: Yes Status: Acute Assessment & Plan: - K+ 3.1 replaced Code(s): E87.6 - HYPOKALEMIA (7) Hyperlipidemia Current Visit: Yes Status: Acute Assessment & Plan: - Continue statin - Lipid panel reviwed Code(s): E78.5 - HYPERLIPIDEMIA, UNSPECIFIED (8) Elevated troponin Current Visit: Yes Status: Acute Assessment & Plan: - Trop 0.130, 0.137, 0.152- - Cardiology consulted. - Pt denies CP Code(s): R79.89 - OTHER SPECIFIED ABNORMAL FINDINGS OF BLOOD CHEMISTRY (9) Uncontrolled diabetes mellitus Current Visit: Yes Status: Acute Qualifiers: Diabetes mellitus type: type 2 Glycemic state: with hyperglycemia Qualified Code(s): E11.65 - Type 2 diabetes mellitus with hyperglycemia Assessment & Plan: - A1C 13.56 - Humalog s/s and Lantus Code(s): UBL5570 - (10) Restless leg syndrome Current Visit: Yes Status: Acute Assessment & Plan: - Uncontrolled- chronic - ? related to hypokalemia- replaced - Continue Requip (11) Muscle spasm of both lower legs Current Visit: Yes Status: Acute Assessment & Plan: - ? related to Hypokalemia from Lasix- replaced - cyclobenzaprine PRN - Voltaren gel PRN Code(s): M62.838 - OTHER MUSCLE SPASM (12) Abdominal distention Current Visit: Yes Status: Acute Assessment & Plan: - CT abd pelvis 07/28/23 Diffuse subcutaneous fat stranding was seen. Diffuse mesenteric fat stranding is also seen. Moderate bilateral pleural effusion was seen. Duplex right kidney. Almost complete fatty atrophy of the pancreas was seen. Fat containing left inguinal hernia - US abd 07/29/23 Targeted 4 quadrant abdominal sonogram is negative for ascites. VTE: Lovenox PPI: Protonix Next of KIN: Heath Santos [phone] D/C plan: 1-2 ays Concerns of care: Recently moved here, noncompliance with meds and care, no PCP. Code(s): R14.0 - ABDOMINAL DISTENSION (GASEOUS)
--- NOTE | 2023-07-29 11:30 | XRAY ---
Indication: Bilateral leg edema. Two-dimensional sonogram and color Doppler imaging of the major venous vessels of the left and right leg performed. Comparison: None Filbert Grower notes limited exam due to patient not cooperative and flailing limbs. No thrombus seen in the examined deep venous vessels of the left and right leg including greater saphenous vein. Veins demonstrate normal compressibility. Venous waveforms are normal with and without augmentation. Impression: Left and right legs grossly negative for DVT.
--- NOTE | 2023-07-29 11:31 | XRAY ---
Indication: Ascites. Targeted 4 quadrant abdominal sonogram is negative for ascites.
[2023-07-29] MEDS ORDERED: DICLOFENAC SODIUM TP PRN (11:47)
[2023-07-29] MEDS ORDERED: ATARAX 25 MG PO PRN (11:58)
[2023-07-29 14:43] LABS: ANION GAP 9.9 MEQ/L (5-15); Potassium 4.3 mmol/L (3.5-5.1)
[2023-07-29] MEDS: DICLOFENAC SODIUM TP PRN ×2 (17:27→21:32)
[2023-07-29] MEDS: HUMALOG SQ PRN (18:02)
[2023-07-29 19:09] LABS: Amphetamine,Urine NEGATIVE (NEGATIVE); Barbiturate,Urine NEGATIVE (NEGATIVE); Benzodiazepine,Urine POSITIVE (NEGATIVE); Cocaine,Urine NEGATIVE (NEGATIVE); Methadone,Urine NEGATIVE (NEGATIVE); Opiate,Urine NEGATIVE (NEGATIVE); PCP,Urine NEGATIVE (NEGATIVE); THC,Urine NEGATIVE (NEGATIVE)
[2023-07-29] MEDS: Lantus Insulin SQ SCH (21:31)
[2023-07-29] MEDS: REQUIP 2MG TAB PO SCH (21:31)
[2023-07-29] MEDS: DESYREL 50 MG PO SCH (21:32)
[2023-07-29] MEDS: ELIQUIS 2.5 MG TABLET PO SCH (22:00)
[2023-07-29] MEDS: Coreg PO SCH (22:00)
[2023-07-30 05:03] LABS: Absolute Neutrophil Ct (ANC) 2.12 x10^3/uL (1.4-6.9); BASOPHIL % 1.1 % (0.0-0.4); Basophil (Absolute #) 0.04 x10^3/uL (0-0.4); Eosinophil % 1.7 % (0.00-5.0); Eosinophil (Absolute #) 0.06 x10^3/uL (0-0.5); Hematocrit 33.2 % (42-50); Hemoglobin 10.4 g/dL (12.5-18.0); Lymphocytes % 28.7 % (24.0-44.0); Mean Cell Volume 88.8 fL (78-100); Mean Corpuscular Hemoglobin 27.8 pg (26-32); Mean Corpuscular Hgb Concent. 31.3 g/dL (32-36); Mean Platelet Volume 10.5 fL (7.5-11.0); Monocyte (Absolute #) 0.26 x10^3/uL (0.0-1.3); Monocytes % 7.5 % (0.0-12.0); Platelet Count 174 x10^3/uL (150-450); Red Blood Count 3.74 x10^6/uL (4.1-5.6); Red Cell Distribution Width 13.3 % (11.5-14.0); White Blood Count 3.5 x10^3/uL (4.0-10.5)
[2023-07-30 05:13] LABS: ALBUMIN 2.8 g/dL (3.5-5.0); ANION GAP 8.9 MEQ/L (5-15); BILIRUBIN,TOTAL 0.4 mg/dL (0.2-1.3); Calcium 8.1 mg/dL (8.4-10.2); Creatinine 1 1.13 mg/dL (0.66-1.25); EST GLOMERULAR FILTRATION RATE 72.6 ML/MIN; MAGNESIUM 1.7 mg/dL (1.6-2.3); Potassium 3.7 mmol/L (3.5-5.1); Total Protein 5.7 g/dL (6.3-8.2)
--- NOTE | 2023-07-30 10:13 | PCM.NOTE ---
Date and Time: 07/30/23 [facility] Subjective Assessment: 07/29/23 is a 62 year old male with PMHx of OA, KASHMIR, HTN, CHF, DM2, arrthymias, pacemaker, and GERD. He presented 07/28/23 with acute on chronic CHF with SOB, lower extremity swelling. No chest pain, nausea, vomiting, fevers, chills. Received diuretics in the ED and symptoms improved. Shortness of breath has improved since admission. Endorses cough with clear sputum, abdominal discomfort/distention, BLLE tightness/edema and scrotal swelling. Abd distention and scrotal edema improved overnight. On exam BLLE edema noted with multiple open wounds in various degrees of healing. He also has a blister on the palm of his hand and sores in various stages of healing on fingers. Continue Lasix 40mg BID. Pt is scheduled today for echo, doppler BLLE, abd us, and cardiology consult. A1c noted at 13.56, patient needs diabetic education. He explains A1C has improved from last time checked. Trops trended up, EKG unremarkable, denies CP. Patient is poor historian and new to the area. He is agreeable to seeing a PCP with [facility]. Patient denies alcohol, drug use, or h/o smoking. Pt states he feels very anxious today and breathing techniques taught to reduce sxs. UDS ordered for further evaluation. Pt denies CP, SOB, abd. pain, N/V/D. 07/30/23 Pt sitting up in bed. He reports feeling better today. Edema of BLLE, abd, and scrotum improved. Tele-Cardiology consulted yesterday with several med updates. Aldactone 25mg daily, Eliquis 5mg BID, Jardiance 10mg daily, and Coreg increased to 6.25 daily. EF is 40% Abd US and BLLE venous duplex negative. Will continue Lasix until edema improved. Encouraged pt to sit up in chair today with legs elevated to reduce edema. As well as participate with PT. he denies CP, SOB, Abd. pain, N/V/D. - Review of Systems Constitutional: No Fever, No Chills Eyes: No Symptoms Ears, Nose, & Throat: No Symptoms Respiratory: No Cough, No Short Of Breath Cardiac: Edema, No Chest Pain, No Syncope Abdominal/Gastrointestinal: No Abdominal Pain, No Nausea, No Vomiting, No Diarrhea Genitourinary Symptoms: No Dysuria Musculoskeletal: No Back Pain, No Neck Pain Skin: No Rash Neurological: No Dizziness, No Focal Weakness, No Sensory Changes Psychological: No Symptoms Endocrine: No Symptoms Hematologic/Lymphatic: No Symptoms Immunological/Allergic: No Symptoms Objective Exam General Appearance: no apparent distress, alert Neurologic Exam: alert, oriented x 3, cooperative, normal mood/affect, nml cerebellar function, sensation nml, No motor deficits Skin Exam: normal color, warm, dry, other (Lesions in mutiple stages of healing on hands, fingers, and BLLE.) Wound Assessment: Skin/Wound Assessment Wound/Incision Assessment Start: 07/28/23 01:41 Text: Status: Active Freq: Q6H Protocol: Document 07/30/23 08:00 FLACA (Rec: 07/30/23 09:09 FLACA [id number]) Wound/Incision Assessment Left Hand Wound Assessment Shift Assessment Wound Type Blister Wound Stage Non Pressure Wound Dressing Status Dry & Intact Primary Dressing Gauze Pads Secondary Dressing Gauze Roll/Wrap Comment Blister on left palm bilateral legs Wound Assessment Shift Assessment Wound Type diabetic ulcerations Wound Stage Non Pressure Wound General Appearance Open to air Comment bilateral shins have scabs and ulcerations on them that are in the healing stages. bandaid in place over one small ulceration on the LLE, minimal drainage present, continues to be true Wound Photo Photo Taken Yes Date: 07/28/23 Time: 01:15 Comment: Pictures in patient's chart. Eye Exam: PERRL, EOMI, eyes nml inspection Ears, Nose, Throat Exam: normal ENT inspection, pharynx normal, moist mucous membranes Neck Exam: normal inspection, non-tender, supple, full range of motion Respiratory Exam: normal breath sounds, lungs clear, No respiratory distress Cardiovascular Exam: regular rate/rhythm, normal heart sounds, edema (+1 pitting edema of BLLE, and scrotal edema.) Gastrointestinal/Abdomen Exam: soft, No tenderness, No mass Extremity Exam: normal inspection, normal range of motion Back Exam: normal inspection, normal range of motion, No CVA tenderness, No vertebral tenderness Male Genitalia Exam: deferred Rectal Exam: deferred OBJECTIVE DATA Vital Signs: Vital Signs - 24 hr Temp Pulse Resp BP Pulse Ox 07/30/23 09:44 77 16 94 L 07/30/23 06:32 98.3 F 72 15 144/94 92 L 07/30/23 03:00 97.4 F 76 16 133/75 91 L 07/29/23 23:00 97.3 F 75 16 111/57 90 L 07/29/23 19:41 71 16 95 07/29/23 19:00 97.3 F 75 16 145/77 95 07/29/23 15:00 97.0 F 75 18 137/79 95 07/29/23 11:00 97.1 F 79 18 159/88 95 Pain Assessment - Last Documented Pain Intensity 5 Pain Scale Used 0-10 Pain Scale Intake and Output: Intake & Output 07/27/23 07/28/23 07/29/23 07/30/23 11:59 11:59 11:59 11:59 Intake Total 120 515 600 Output Total 550 5250 1160 Balance -430 -5216 -620 Weight 97.7 kg 96.5 kg Lab Results: Lab Results-Last 24 Hours 07/29/23 07/29/23 07/29/23 Range/Units 11:25 14:18 15:58 WBC (4.0-10.5) x10^3/uL RBC (4.1-5.6) x10^6/uL Hgb (12.5-18.0) g/dL Hct (42-50) % MCV (78-100) fL MCH (26-32) pg MCHC (32-36) g/dL RDW (11.5-14.0) % Plt Count (150-450) x10^3/uL MPV (7.5-11.0) fL Gran % (36.0-66.0) % Immature Gran % (Auto) (0.00-0.4) % Nucleat RBC Rel Count (0.00-0.1) % Eos # (Auto) (0-0.5) x10^3/uL Immature Gran # (Auto) (0.00-0.03) x10^3u/L Absolute Lymphs (auto) (1.0-4.6) x10^3/uL Absolute Monos (auto) (0.0-1.3) x10^3/uL Absolute Nucleated RBC (0.00-0.01) x10^3u/L Lymphocytes % (24.0-44.0) % Monocytes % (0.0-12.0) % Eosinophils % (0.00-5.0) % Basophils % (0.0-0.4) % Absolute Granulocytes (1.4-6.9) x10^3/uL Basophils # (0-0.4) x10^3/uL Sodium 131 L (137-145) mmol/L Potassium 4.3 D (3.5-5.1) mmol/L Chloride 97 L (98-107) mmol/L Carbon Dioxide 28 (22-30) mmol/L Anion Gap 9.9 (5-15) MEQ/L BUN (9-20) mg/dL Creatinine (0.66-1.25) mg/dL Estimated GFR ML/MIN Glucose (74-106) mg/dL POC Glucometer 74 320 H (74 to 106) mg/dL Calcium (8.4-10.2) mg/dL Magnesium (1.6-2.3) mg/dL Total Bilirubin (0.2-1.3) mg/dL AST (17-59) U/L ALT (0-50) U/L Alkaline Phosphatase (38-126) U/L Serum Total Protein (6.3-8.2) g/dL Albumin (3.5-5.0) g/dL Urine Opiates Level (NEGATIVE) Ur Methadone (NEGATIVE) Urine Barbiturates (NEGATIVE) Ur Phencyclidine (PCP) (NEGATIVE) Urine Amphetamine (NEGATIVE) U Benzodiazepine Level (NEGATIVE) Urine Cocaine (NEGATIVE) Urine Marijuana (THC) (NEGATIVE) 07/29/23 07/29/23 07/30/23 Range/Units 18:30 21:22 04:35 WBC 3.5 L (4.0-10.5) x10^3/uL RBC 3.74 L (4.1-5.6) x10^6/uL Hgb 10.4 L (12.5-18.0) g/dL Hct 33.2 L (42-50) % MCV 88.8 (78-100) fL MCH 27.8 (26-32) pg MCHC 31.3 L (32-36) g/dL RDW 13.3 (11.5-14.0) % Plt Count 174 (150-450) x10^3/uL MPV 10.5 (7.5-11.0) fL Gran % 61.0 (36.0-66.0) % Immature Gran % (Auto) 0.0 (0.00-0.4) % Nucleat RBC Rel Count 0.0 (0.00-0.1) % Eos # (Auto) 0.06 (0-0.5) x10^3/uL Immature Gran # (Auto) 0.00 (0.00-0.03) x10^3u/L Absolute Lymphs (auto) 1.00 (1.0-4.6) x10^3/uL Absolute Monos (auto) 0.26 (0.0-1.3) x10^3/uL Absolute Nucleated RBC 0.00 (0.00-0.01) x10^3u/L Lymphocytes % 28.7 (24.0-44.0) % Monocytes % 7.5 (0.0-12.0) % Eosinophils % 1.7 (0.00-5.0) % Basophils % 1.1 (0.0-0.4) % Absolute Granulocytes 2.12 (1.4-6.9) x10^3/uL Basophils # 0.04 (0-0.4) x10^3/uL Sodium (137-145) mmol/L Potassium (3.5-5.1) mmol/L Chloride (98-107) mmol/L Carbon Dioxide (22-30) mmol/L Anion Gap (5-15) MEQ/L BUN (9-20) mg/dL Creatinine (0.66-1.25) mg/dL Estimated GFR ML/MIN Glucose (74-106) mg/dL POC Glucometer 131 H (74 to 106) mg/dL Calcium (8.4-10.2) mg/dL Magnesium (1.6-2.3) mg/dL Total Bilirubin (0.2-1.3) mg/dL AST (17-59) U/L ALT (0-50) U/L Alkaline Phosphatase (38-126) U/L Serum Total Protein (6.3-8.2) g/dL Albumin (3.5-5.0) g/dL Urine Opiates Level NEGATIVE (NEGATIVE) Ur Methadone NEGATIVE (NEGATIVE) Urine Barbiturates NEGATIVE (NEGATIVE) Ur Phencyclidine (PCP) NEGATIVE (NEGATIVE) Urine Amphetamine NEGATIVE (NEGATIVE) U Benzodiazepine Level POSITIVE A (NEGATIVE) Urine Cocaine NEGATIVE (NEGATIVE) Urine Marijuana (THC) NEGATIVE (NEGATIVE) 07/30/23 07/30/23 07/30/23 Range/Units 04:35 06:15 07:16 WBC (4.0-10.5) x10^3/uL RBC (4.1-5.6) x10^6/uL Hgb (12.5-18.0) g/dL Hct (42-50) % MCV (78-100) fL MCH (26-32) pg MCHC (32-36) g/dL RDW (11.5-14.0) % Plt Count (150-450) x10^3/uL MPV (7.5-11.0) fL Gran % (36.0-66.0) % Immature Gran % (Auto) (0.00-0.4) % Nucleat RBC Rel Count (0.00-0.1) % Eos # (Auto) (0-0.5) x10^3/uL Immature Gran # (Auto) (0.00-0.03) x10^3u/L Absolute Lymphs (auto) (1.0-4.6) x10^3/uL Absolute Monos (auto) (0.0-1.3) x10^3/uL Absolute Nucleated RBC (0.00-0.01) x10^3u/L Lymphocytes % (24.0-44.0) % Monocytes % (0.0-12.0) % Eosinophils % (0.00-5.0) % Basophils % (0.0-0.4) % Absolute Granulocytes (1.4-6.9) x10^3/uL Basophils # (0-0.4) x10^3/uL Sodium 131 L (137-145) mmol/L Potassium 3.7 (3.5-5.1) mmol/L Chloride 100 (98-107) mmol/L Carbon Dioxide 26 (22-30) mmol/L Anion Gap 8.9 (5-15) MEQ/L BUN 21 H (9-20) mg/dL Creatinine 1.13 (0.66-1.25) mg/dL Estimated GFR 72.6 ML/MIN Glucose 106 (74-106) mg/dL POC Glucometer 59 L 97 (74 to 106) mg/dL Calcium 8.1 L (8.4-10.2) mg/dL Magnesium 1.7 (1.6-2.3) mg/dL Total Bilirubin 0.40 (0.2-1.3) mg/dL AST 38 (17-59) U/L ALT 33 (0-50) U/L Alkaline Phosphatase 99 (38-126) U/L Serum Total Protein 5.7 L (6.3-8.2) g/dL Albumin 2.8 L (3.5-5.0) g/dL Urine Opiates Level (NEGATIVE) Ur Methadone (NEGATIVE) Urine Barbiturates (NEGATIVE) Ur Phencyclidine (PCP) (NEGATIVE) Urine Amphetamine (NEGATIVE) U Benzodiazepine Level (NEGATIVE) Urine Cocaine (NEGATIVE) Urine Marijuana (THC) (NEGATIVE) Radiology Exams: Radiology Procedures Category Date Time Status ECHO W/2D AND DOPPLER [US] Routine Exams 07/29/23 08:00 Taken US ABDOMEN LIMITED [ABDOMINAL-LIMITED] [US] Routine Exams 07/29/23 09:51 Completed VENOUS BILATERAL EXTREMITY [US] Urgent Exams 07/29/23 08:53 Completed Assessment/Plan (1) Acute exacerbation of CHF (congestive heart failure) Current Visit: Yes Status: Acute Qualifiers: Heart failure type: combined systolic and diastolic Qualified Code(s): I50.43 - Acute on chronic combined systolic (congestive) and diastolic (congestive) heart failure Assessment & Plan: - EKG reviewed - room air - Lasix 20 mg IV BID - BNP 6640 - CHF education - Heart healthy diet - Mg+ >2, K+ > 4 - Tele - start BB, Statin, KERMIT-I. - I&Os - Cardiology consult - Echo - TSH- 3.160 - Lipid panel reviewed - PT/OT - Chest XR 07/27/23 Portable apical lordotic chest demonstrates borderline cardiomegaly, left pacemaker, mild pulmonary edema, and tiny bibasilar effusions. Mild/early cardiac decompensation offered for clinical consideration. Superposed pneumonia not completely excluded. Bony thorax intact - Chest CT 07/28/23 IMPRESSION: 1. Moderate bilateral pleural effusion with underlying basal relaxation colpase at the lower lung lobes. 2. Right lower lung lobe anterior segment small calcified granulomas. 3. Enlarged cardiac size. 4. Diffuse chest wall subcutaneous edema and fatty stranding 07/30 - EF 40 % per cardiology - Meds changes by cardiology: Aldactone 25mg daily, Eliquis 5mg BID, Jardiance 10mg daily, and Coreg increased to 6.25 daily - F/U with cardiology OP - edema improved with Lasix Code(s): I50.9 - HEART FAILURE, UNSPECIFIED (2) Anxiety Current Visit: Yes Status: Acute Assessment & Plan: - UDS - breathing techniques taught -PRN Ativan gave overnight- pt stated it made him groggy - 1 X dose of Valium gave today before procedures as pt stated he will not be able to hold still if he does not have something. - Trazadone for sleep at HS 07/30 - Sxs improved, pt sleep well last night Code(s): F41.9 - ANXIETY DISORDER, UNSPECIFIED (3) Skin abnormalities Current Visit: Yes Status: Acute Assessment & Plan: - Multiple lesions on BLLE and BL hands in various stages of healing - will need to f/u with dermatology OP. - VD BLLE 07/29/23: Left and right legs grossly negative for DVT. Code(s): L98.9 - DISORDER OF THE SKIN AND SUBCUTANEOUS TISSUE, UNSPECIFIED (4) HTN (hypertension) Current Visit: Yes Status: Acute Assessment & Plan: - Stable- monitor - Continue Lisinopril, and Coreg Code(s): I10 - ESSENTIAL (PRIMARY) HYPERTENSION (5) Hyponatremia Current Visit: Yes Status: Acute Assessment & Plan: - Mild Na+ 135- trend 07/30 - Na+ 131- trend Code(s): E87.1 - HYPO-OSMOLALITY AND HYPONATREMIA (6) Hypokalemia Current Visit: Yes Status: Acute Assessment & Plan: - K+ 3.1 replaced - potassium chloride 20 meq daily/ mag-ox daily 07/30 - K+ 3.7- resolved Code(s): E87.6 - HYPOKALEMIA (7) Hyperlipidemia Current Visit: Yes Status: Acute Assessment & Plan: - Continue statin - Lipid panel reviewed Code(s): E78.5 - HYPERLIPIDEMIA, UNSPECIFIED (8) Elevated troponin Current Visit: Yes Status: Acute Assessment & Plan: - Trop 0.130, 0.137, 0.152- - Cardiology consulted. - Pt denies CP Code(s): R79.89 - OTHER SPECIFIED ABNORMAL FINDINGS OF BLOOD CHEMISTRY (9) Uncontrolled diabetes mellitus Current Visit: Yes Status: Acute Qualifiers: Diabetes mellitus type: type 2 Glycemic state: with hyperglycemia Qualified Code(s): E11.65 - Type 2 diabetes mellitus with hyperglycemia Assessment & Plan: - A1C 13.56 - Humalog s/s and Lantus Code(s): [id number] - (10) Restless leg syndrome Current Visit: Yes Status: Acute Assessment & Plan: - Uncontrolled- chronic - ? related to hypokalemia- replaced - Continue Requip 07/30 - sxs improved (11) Muscle spasm of both lower legs Current Visit: Yes Status: Acute Assessment & Plan: - ? related to Hypokalemia from Lasix- replaced - cyclobenzaprine PRN - Voltaren gel PRN 07/30 - improved Code(s): M62.838 - OTHER MUSCLE SPASM (12) Abdominal distention Current Visit: Yes Status: Acute Assessment & Plan: - CT abd pelvis 07/28/23 Diffuse subcutaneous fat stranding was seen. Diffuse mesenteric fat stranding is also seen. Moderate bilateral pleural effusion was seen. Duplex right kidney. Almost complete fatty atrophy of the pancreas was seen. Fat containing left inguinal hernia - US abd 07/29/23 Targeted 4 quadrant abdominal sonogram is negative for ascites. 07/30 - improved with Lasix VTE: Lovenox PPI: Protonix Next of KIN: Heath Santos [phone] D/C plan: tomorrow? Concerns of care: Recently moved here, noncompliance with meds and care, no PCP. Code(s): R14.0 - ABDOMINAL DISTENSION (GASEOUS)
[2023-07-30] MEDS: MAG-OX 400 PO SCH (10:26)
[2023-07-30] MEDS: Zestril 10 MG PO SCH (10:27)
[2023-07-30] MEDS: Klor Con PO SCH (10:27)
[2023-07-30] MEDS: Vitamin B-12 500 MCG PO SCH (10:27)
[2023-07-30] MEDS: Coreg PO SCH ×2 (10:28→23:08)
[2023-07-30] MEDS: ELIQUIS 2.5 MG TABLET PO SCH ×2 (10:28→23:07)
[2023-07-30] MEDS: Cymbalta 30 MG Capsule PO SCH ×2 (10:28→23:08)
[2023-07-30] MEDS: Aldactone 25 MG PO SCH (10:28)
[2023-07-30] MEDS: JARDIANCE PO SCH (10:28)
[2023-07-30] MEDS: Protonix 40MG Tablet PO SCH (10:28)
[2023-07-30] MEDS: Lasix 40 MG/4 ML IV SCH ×2 (10:29→16:43)
[2023-07-30] MEDS: HUMALOG SQ PRN ×2 (12:14→23:07)
[2023-07-30] MEDS: Lantus Insulin SQ SCH (23:07)
[2023-07-30] MEDS: DESYREL 50 MG PO SCH (23:09)
[2023-07-30] MEDS: REQUIP 2MG TAB PO SCH (23:09)
[2023-07-31] MEDS: Cyclobenzaprine 10 MG PO PRN (00:30)
[2023-07-31] MEDS: TYLENOL 325 MG PO PRN (00:30)
[2023-07-31 05:26] LABS: Absolute Neutrophil Ct (ANC) 2.42 x10^3/uL (1.4-6.9); BASOPHIL % 1.1 % (0.0-0.4); Basophil (Absolute #) 0.04 x10^3/uL (0-0.4); Eosinophil % 1.6 % (0.00-5.0); Eosinophil (Absolute #) 0.06 x10^3/uL (0-0.5); Hematocrit 33.8 % (42-50); Hemoglobin 10.5 g/dL (12.5-18.0); IMMATURE GRAN # 0.01 x10^3u/L (0.00-0.03); IMMATURE GRAN % 0.3 % (0.00-0.4); Lymphocyte (Absolute #) 0.86 x10^3/uL (1.0-4.6); Lymphocytes % 23.5 % (24.0-44.0); Mean Cell Volume 89.2 fL (78-100); Mean Corpuscular Hemoglobin 27.7 pg (26-32); Mean Corpuscular Hgb Concent. 31.1 g/dL (32-36); Mean Platelet Volume 10.7 fL (7.5-11.0); Monocyte (Absolute #) 0.27 x10^3/uL (0.0-1.3); Monocytes % 7.4 % (0.0-12.0); Neutrophil % 66.1 % (36.0-66.0); Platelet Count 187 x10^3/uL (150-450); Red Blood Count 3.79 x10^6/uL (4.1-5.6); Red Cell Distribution Width 13.2 % (11.5-14.0); White Blood Count 3.7 x10^3/uL (4.0-10.5)
[2023-07-31 06:01] LABS: ALBUMIN 2.9 g/dL (3.5-5.0); ANION GAP 10.5 MEQ/L (5-15); BILIRUBIN,TOTAL 0.3 mg/dL (0.2-1.3); Calcium 8.2 mg/dL (8.4-10.2); Creatinine 1 1.31 mg/dL (0.66-1.25); EST GLOMERULAR FILTRATION RATE 60.8 ML/MIN; MAGNESIUM 1.8 mg/dL (1.6-2.3); Potassium 4.3 mmol/L (3.5-5.1); Total Protein 5.9 g/dL (6.3-8.2)
[2023-07-31 07:34] VITALS: PULSE 79
[2023-07-31 07:59] VITALS: BP 141/83; RESP 16; TEMP 96.4; O2SAT 91
[2023-07-31] MEDS: Coreg PO SCH (10:36)
[2023-07-31] MEDS: Vitamin B-12 500 MCG PO SCH (10:36)
[2023-07-31] MEDS: Protonix 40MG Tablet PO SCH (10:36)
[2023-07-31] MEDS: Zestril 10 MG PO SCH (10:36)
[2023-07-31] MEDS: Cymbalta 30 MG Capsule PO SCH (10:36)
[2023-07-31] MEDS: Klor Con PO SCH (10:36)
[2023-07-31] MEDS: Aldactone 25 MG PO SCH (10:36)
[2023-07-31] MEDS: Lasix 40 MG/4 ML IV SCH (10:36)
[2023-07-31] MEDS: MAG-OX 400 PO SCH (10:36)
[2023-07-31] MEDS: ELIQUIS 2.5 MG TABLET PO SCH (10:36)
[2023-07-31] MEDS: JARDIANCE PO SCH (10:48)
--- NOTE | 2023-07-31 10:53 | PCM.DS ---
Discharge Summary Date of Admission: 07/28/23 00:37 Date of Discharge: 07/31/23 Admitting Physician: WYATT DODSON MD Consults: Consults on Case 07/28/23 08:52 Consult Cardiology ROUTINE Primary Care Provider: NO FAMILY DOCTOR Allergies Allergies diphenhydramine [From Benadryl] Allergy (Verified 07/27/23 22:17) Difficulty Breathing Iodinated Contrast Media Allergy (Verified 07/27/23 22:17) Difficulty Breathing Hospital Summary - Hospital Course Hospital Course: 07/29/23 is a 62 year old male with PMHx of OA, KASHMIR, HTN, CHF, DM2, arrthymias, pacemaker, and GERD. He presented 07/28/23 with acute on chronic CHF with SOB, lower extremity swelling. No chest pain, nausea, vomiting, fevers, chills. Received diuretics in the ED and symptoms improved. Shortness of breath has improved since admission. Endorses cough with clear sputum, abdominal discomfort/distention, BLLE tightness/edema and scrotal swelling. Abd distention and scrotal edema improved overnight. On exam BLLE edema noted with multiple open wounds in various degrees of healing. He also has a blister on the palm of his hand and sores in various stages of healing on fingers. Continue Lasix 40mg BID. Pt is scheduled today for echo, doppler BLLE, abd us, and cardiology consult. A1c noted at 13.56, patient needs diabetic education. He explains A1C has improved from last time checked. Trops trended up, EKG unremarkable, denies CP. Patient is poor historian and new to the area. He is agreeable to seeing a PCP with [facility]. Patient denies alcohol, drug use, or h/o smoking. Pt states he feels very anxious today and breathing techniques taught to reduce sxs. UDS ordered for further evaluation. Pt denies CP, SOB, abd. pain, N/V/D. 07/30/23 Pt sitting up in bed. He reports feeling better today. Edema of BLLE, abd, and s crotum improved. Tele-Cardiology consulted yesterday with several med updates. Aldactone 25mg daily, Eliquis 5mg BID, Jardiance 10mg daily, and Coreg increased to 6.25 daily. EF is 40% Abd US and BLLE venous duplex negative. Will continue Lasix until edema improved. Encouraged pt to sit up in chair today with legs elevated to reduce edema. As well as participate with PT. he denies CP, SOB, Abd. pain, N/V/D. 07/31/23 Pt resting in bed. He explains he is feeling better and would like to go home t [facility]. Scrotal swelling has improved since yesterday. He continues to have edema in BLLE. Will d/c with Lasix and fatimah hose. Educated to also elevate legs at home. Case management has his meds set up a plan for meds. He has an appointment with Cardiology, dermatology, and PCP OP. Discussed DM care and management to reduce A1C. He denies any further concerns at this time. - Vitals & Intake/Output Vital Signs: Vital Signs Temperature 96.4 F 07/31/23 07:56 Pulse Rate 79 07/31/23 07:56 Respiratory Rate 16 07/31/23 07:56 Blood Pressure 141/83 07/31/23 07:56 O2 Sat by Pulse Oximetry 91 L 07/31/23 07:56 Intake & Output: Intake & Output 07/28/23 07/29/23 07/30/23 07/31/23 11:59 11:59 11:59 11:59 Intake Total 120 364 606 6450 Output Total 550 5250 1160 1800 Balance -430 -9224 -200 100 Weight 97.7 kg 96.5 kg 96.4 kg - Lab Result Diagrams: 07/31/23 04:36 07/31/23 04:36 Lab Results-Last 24 Hrs: Lab Results-Last 24 Hours 07/30/23 07/30/23 07/30/23 Range/Units 11:30 15:01 22:36 WBC (4.0-10.5) x10^3/uL RBC (4.1-5.6) x10^6/uL Hgb (12.5-18.0) g/dL Hct (42-50) % MCV (78-100) fL MCH (26-32) pg MCHC (32-36) g/dL RDW (11.5-14.0) % Plt Count (150-450) x10^3/uL MPV (7.5-11.0) fL Gran % (36.0-66.0) % Immature Gran % (Auto) (0.00-0.4) % Nucleat RBC Rel Count (0.00-0.1) % Eos # (Auto) (0-0.5) x10^3/uL Immature Gran # (Auto) (0.00-0.03) x10^3u/L Absolute Lymphs (auto) (1.0-4.6) x10^3/uL Absolute Monos (auto) (0.0-1.3) x10^3/uL Absolute Nucleated RBC (0.00-0.01) x10^3u/L Lymphocytes % (24.0-44.0) % Monocytes % (0.0-12.0) % Eosinophils % (0.00-5.0) % Basophils % (0.0-0.4) % Absolute Granulocytes (1.4-6.9) x10^3/uL Basophils # (0-0.4) x10^3/uL Sodium (137-145) mmol/L Potassium (3.5-5.1) mmol/L Chloride (98-107) mmol/L Carbon Dioxide (22-30) mmol/L Anion Gap (5-15) MEQ/L BUN (9-20) mg/dL Creatinine (0.66-1.25) mg/dL Estimated GFR ML/MIN Glucose (74-106) mg/dL POC Glucometer 238 H 115 H 255 H (74 to 106) mg/dL Calcium (8.4-10.2) mg/dL Magnesium (1.6-2.3) mg/dL Total Bilirubin (0.2-1.3) mg/dL AST (17-59) U/L ALT (0-50) U/L Alkaline Phosphatase (38-126) U/L Serum Total Protein (6.3-8.2) g/dL Albumin (3.5-5.0) g/dL 07/31/23 07/31/23 07/31/23 Range/Units 04:36 04:36 07:41 WBC 3.7 L (4.0-10.5) x10^3/uL RBC 3.79 L (4.1-5.6) x10^6/uL Hgb 10.5 L (12.5-18.0) g/dL Hct 33.8 L (42-50) % MCV 89.2 (78-100) fL MCH 27.7 (26-32) pg MCHC 31.1 L (32-36) g/dL RDW 13.2 (11.5-14.0) % Plt Count 187 (150-450) x10^3/uL MPV 10.7 (7.5-11.0) fL Gran % 66.1 H (36.0-66.0) % Immature Gran % (Auto) 0.3 (0.00-0.4) % Nucleat RBC Rel Count 0.0 (0.00-0.1) % Eos # (Auto) 0.06 (0-0.5) x10^3/uL Immature Gran # (Auto) 0.01 (0.00-0.03) x10^3u/L Absolute Lymphs (auto) 0.86 L (1.0-4.6) x10^3/uL Absolute Monos (auto) 0.27 (0.0-1.3) x10^3/uL Absolute Nucleated RBC 0.00 (0.00-0.01) x10^3u/L Lymphocytes % 23.5 L (24.0-44.0) % Monocytes % 7.4 (0.0-12.0) % Eosinophils % 1.6 (0.00-5.0) % Basophils % 1.1 (0.0-0.4) % Absolute Granulocytes 2.42 (1.4-6.9) x10^3/uL Basophils # 0.04 (0-0.4) x10^3/uL Sodium 132 L (137-145) mmol/L Potassium 4.3 (3.5-5.1) mmol/L Chloride 100 (98-107) mmol/L Carbon Dioxide 26 (22-30) mmol/L Anion Gap 10.5 (5-15) MEQ/L BUN 24 H (9-20) mg/dL Creatinine 1.31 H (0.66-1.25) mg/dL Estimated GFR 60.8 ML/MIN Glucose 78 (74-106) mg/dL POC Glucometer 63 L (74 to 106) mg/dL Calcium 8.2 L (8.4-10.2) mg/dL Magnesium 1.8 (1.6-2.3) mg/dL Total Bilirubin 0.30 (0.2-1.3) mg/dL AST 37 (17-59) U/L ALT 32 (0-50) U/L Alkaline Phosphatase 100 (38-126) U/L Serum Total Protein 5.9 L (6.3-8.2) g/dL Albumin 2.9 L (3.5-5.0) g/dL Micro Results-Entire Visit: Accuchecks Date 07/31/23 Date 07/30/23 Date 07/30/23 Time 07:55 Time 15:25 Time 11:38 - Radiology Exams Ordered Rad Exams-Entire Visit: Radiology Procedures Category Date Time Status US ABDOMEN LIMITED [ABDOMINAL-LIMITED] [US] Routine Exams 07/29/23 09:51 Completed - Procedures and Test Procedures and Tests throughout Hospitalization: Therapy Orders & Screens 07/28/23 01:41 OT Screen per Nursing Assess ONCE Comment: Protocol Order Physician Instructions: Greater than 3 points order OT Admission Screening Reason For Exam: Triggered on Admission Diagnosis: elevated troponin, CHF Open Wound/Cellutlitis/Pressure Ulcers: Yes Acute Fx/ORIF/Change in wt bearing status: Yes Severe MUSCULOSKELETAL pain: Yes ADL Dysfunction: No Acute CVA w/Hemiparesis/Hemiplegia: No Decreased Functional Mobility/Strength: Yes Sprain/Strain: No Acute Post-op Mobility Dysfunction: No Total Points: 16 PT Screen per Nursing Assess ONCE Comment: Protocol Order Physician Instructions: Greater than 3 points order PT Admission Screenin Reason For Exam: Triggered on Admission Diagnosis: elevated troponin, CHF Open Wound/Cellutlitis/Pressure Ulcers: Yes Acute Fx/ORIF/Change in wt bearing status: Yes Severe MUSCULOSKELETAL pain: Yes ADL Dysfunction: No Acute CVA w/Hemiparesis/Hemiplegia: No Decreased Functional Mobility/Strength: Yes Sprain/Strain: No Acute Post-op Mobility Dysfunction: No Total Points: 16 RT Screen per Nursing Assess ONCE Comment: Protocol Order Physician Instructions: Greater than 3 points order RT Admission Screen Reason For Exam: Triggered on Admission Diagnosis: elevated troponin, CHF Diagnosis: elevated troponin, CHF Pneumonia: No Home O2: No Asthma: Yes CHF: Yes Home CPAP/BIPAP: No Home Nebs/MDI: No Total Points: 7 07/28/23 04:36 Respiratory Therapy Assessment DAILY Comment: Diagnosis: elevated troponin, CHF 07/28/23 04:37 Respiratory Therapy Consult ONCE Comment: Reason For Exam: Diagnosis: elevated troponin, CHF 07/28/23 05:41 EKG STAT Comment: Diagnosis: elevated troponin, CHF 07/30/23 10:11 PT Eval & Treat (MD Order) ONCE Reason for Eval:: weak and unsteady Diagnosis: elevated troponin, CHF Discharge Exam General Appearance: no apparent distress, alert Neurologic Exam: alert, oriented x 3, cooperative, normal mood/affect, nml cerebellar function, sensation nml, No motor deficits Eye Exam: PERRL, EOMI, eyes nml inspection Ears, Nose, Throat Exam: normal ENT inspection, pharynx normal, moist mucous membranes Neck Exam: normal inspection, non-tender, supple, full range of motion Respiratory Exam: normal breath sounds, lungs clear, No respiratory distress Cardiovascular Exam: regular rate/rhythm, normal heart sounds, edema (BLLE + 3 pitting edema) Gastrointestinal/Abdomen Exam: soft, No tenderness, No mass Male Genitalia Exam: deferred Rectal Exam: deferred Back Exam: normal inspection, normal range of motion, No CVA tenderness, No vertebral tenderness Extremity Exam: normal inspection, normal range of motion Skin Exam: normal color, warm, dry, other (Lesions in mutiple stages of healing on hands, fingers, and BLLE.) Wound Assessment: Skin/Wound Assessment Wound/Incision Assessment Start: 07/28/23 01:41 Text: Status: Active Freq: Q6H Protocol: Document 07/31/23 08:00 EK (Rec: 07/31/23 08:59 EK [id number]) Wound/Incision Assessment Left Hand Wound Type Blister Final Diagnosis/Problem List - Final Discharge Diagnosis/Problem (1) Acute exacerbation of CHF (congestive heart failure) Current Visit: Yes Status: Acute Code(s): I50.9 - HEART FAILURE, UNSPECIFIED (2) Anxiety Current Visit: Yes Status: Acute Code(s): F41.9 - ANXIETY DISORDER, UNSPECIFIED (3) Skin abnormalities Current Visit: Yes Status: Acute Code(s): L98.9 - DISORDER OF THE SKIN AND SUBCUTANEOUS TISSUE, UNSPECIFIED (4) HTN (hypertension) Current Visit: Yes Status: Acute Code(s): I10 - ESSENTIAL (PRIMARY) HYPERTENSION (5) Hyponatremia Current Visit: Yes Status: Acute Code(s): E87.1 - HYPO-OSMOLALITY AND HYPONATREMIA (6) Hypokalemia Current Visit: Yes Status: Acute Code(s): E87.6 - HYPOKALEMIA (7) Hyperlipidemia Current Visit: Yes Status: Acute Code(s): E78.5 - HYPERLIPIDEMIA, UNSPECIFIED (8) Elevated troponin Current Visit: Yes Status: Acute Code(s): R79.89 - OTHER SPECIFIED ABNORMAL FINDINGS OF BLOOD CHEMISTRY (9) Uncontrolled diabetes mellitus Current Visit: Yes Status: Acute Code(s): [id number] - (10) Restless leg syndrome Current Visit: Yes Status: Acute (11) Muscle spasm of both lower legs Current Visit: Yes Status: Acute Code(s): M62.838 - OTHER MUSCLE SPASM (12) Abdominal distention Current Visit: Yes Status: Acute Assessment & Plan: (1) Acute exacerbation of CHF (congestive heart failure) Current Visit: Yes Status: Acute Qualifiers: Heart failure type: combined systolic and diastolic Qualified Code(s): I50.43 - Acute on chronic combined systolic (congestive) and diastolic (congestive) heart failure Assessment & Plan: - EKG reviewed - room air - Lasix 20 mg IV BID - BNP 6640 - CHF education - Heart healthy diet - Mg+ >2, K+ > 4 - Tele - start BB, Statin, KERMIT-I. - I&Os - Cardiology consult - Echo - TSH- 3.160 - Lipid panel reviewed - PT/OT - Chest XR 07/27/23 Portable apical lordotic chest demonstrates borderline cardiomegaly, left pacemaker, mild pulmonary edema, and tiny bibasilar effusions. Mild/early cardiac decompensation offered for clinical consideration. Superposed pneumonia not completely excluded. Bony thorax intact - Chest CT 07/28/23 IMPRESSION: 1. Moderate bilateral pleural effusion with underlying basal relaxation colpase at the lower lung lobes. 2. Right lower lung lobe anterior segment small calcified granulomas. 3. Enlarged cardiac size. 4. Diffuse chest wall subcutaneous edema and fatty stranding 07/30 - EF 40 % per cardiology - Meds changes by cardiology: Aldactone 25mg daily, Eliquis 5mg BID, Jardiance 10mg daily, and Coreg increased to 6.25 daily - F/U with cardiology OP - edema improved with Lasix 07/31 - Continue lasix OP Code(s): I50.9 - HEART FAILURE, UNSPECIFIED (2) Anxiety Current Visit: Yes Status: Acute Assessment & Plan: - UDS - breathing techniques taught -PRN Ativan gave overnight- pt stated it made him groggy - 1 X dose of Valium gave today before procedures as pt stated he will not be able to hold still if he does not have something. - Trazadone for sleep at HS 12/ - Sxs improved, pt sleep well last night Code(s): F41.9 - ANXIETY DISORDER, UNSPECIFIED (3) Skin abnormalities Current Visit: Yes Status: Acute Assessment & Plan: - Multiple lesions on BLLE and BL hands in various stages of healing - will need to f/u with dermatology OP. - VD BLLE 07/29/23: Left and right legs grossly negative for DVT. 07/31 - F/u with dermatology OP Code(s): L98.9 - DISORDER OF THE SKIN AND SUBCUTANEOUS TISSUE, UNSPECIFIED (4) HTN (hypertension) Current Visit: Yes Status: Acute Assessment & Plan: - Stable- monitor - Continue Lisinopril, and Coreg Code(s): I10 - ESSENTIAL (PRIMARY) HYPERTENSION (5) Hyponatremia Current Visit: Yes Status: Acute Assessment & Plan: - Mild Na+ 135- trend 07/30 - Na+ 131- trend 07/31 -Na+ 132 - Monitor Op with PCP Code(s): E87.1 - HYPO-OSMOLALITY AND HYPONATREMIA (6) Hypokalemia Current Visit: Yes Status: Acute Assessment & Plan: - K+ 3.1 replaced - potassium chloride 20 meq daily/ mag-ox daily 07/30 - K+ 3.7- resolved Code(s): E87.6 - HYPOKALEMIA (7) Hyperlipidemia Current Visit: Yes Status: Acute Assessment & Plan: - Continue statin - Lipid panel reviewed Code(s): E78.5 - HYPERLIPIDEMIA, UNSPECIFIED (8) Elevated troponin Current Visit: Yes Status: Acute Assessment & Plan: - Trop 0.130, 0.137, 0.152- - Cardiology consulted. - Pt denies CP Code(s): R79.89 - OTHER SPECIFIED ABNORMAL FINDINGS OF BLOOD CHEMISTRY (9) Uncontrolled diabetes mellitus Current Visit: Yes Status: Acute Qualifiers: Diabetes mellitus type: type 2 Glycemic state: with hyperglycemia Qualified Code(s): E11.65 - Type 2 diabetes mellitus with hyperglycemia Assessment & Plan: - A1C 13.56 - Humalog s/s and Lantus Code(s): [id number] - (10) Restless leg syndrome Current Visit: Yes Status: Acute Assessment & Plan: - Uncontrolled- chronic - ? related to hypokalemia- replaced - Continue Requip 07/30 - sxs improved (11) Muscle spasm of both lower legs Current Visit: Yes Status: Acute Assessment & Plan: - ? related to Hypokalemia from Lasix- replaced - cyclobenzaprine PRN - Voltaren gel PRN 07/30 - improved Code(s): M62.838 - OTHER MUSCLE SPASM (12) Abdominal distention Current Visit: Yes Status: Acute Assessment & Plan: - CT abd pelvis 07/28/23 Diffuse subcutaneous fat stranding was seen. Diffuse mesenteric fat stranding is also seen. Moderate bilateral pleural effusion was seen. Duplex right kidney. Almost complete fatty atrophy of the pancreas was seen. Fat containing left inguinal hernia - US abd 07/29/23 Targeted 4 quadrant abdominal sonogram is negative for ascites. 07/30 - improved with Lasix Code(s): R14.0 - ABDOMINAL DISTENSION (GASEOUS) - Discharge Discharge Date: 07/31/23 Disposition: Home, Self-Care Condition: Fair Prescriptions: New Spironolactone 25 mg [Aldactone 25 MG] 25 mg PO DAILY 30 Days #30 tab let Carvedilol 3.125 mg [Coreg 3.125 MG] 6.25 mg PO BID 30 Days #120 tablet Apixaban [Eliquis 2.5 mg Tablet] 5 mg PO BID 30 Days #60 tablet Empagliflozin [Jardiance] 10 mg PO DAILY 30 Days #30 tablet Potassium Chloride Tab* [Klor Con] 20 meq PO DAILY 30 Days #30 tablet Lisinopril 10 mg [Zestril 10 MG] 10 mg PO DAILY 30 Days #30 tablet Continue Duloxetine HCl [Cymbalta] 60 mg PO BID Panax Ginseng Root Extract [Ginseng Extract] 200 mg PO DAILY Cyanocobalamin (Vitamin B-12) [B-12] 1,000 mcg PO DAILY Torsemide 20 mg [Demadex 20 mg] 20 mg PO DAILY Omeprazole 40 mg PO DAILY Atorvastatin Calcium [Lipitor 40Mg] 40 mg PO HS Carvedilol 3.125 mg [Coreg 3.125 MG] 3.125 mg PO BID Trazodone HCl 50 mg [Desyrel 50 mg] 50 mg PO HS Ropinirole 2Mg [Requip 2Mg Tab] 2 mg PO HS Insulin Aspart [NovoLOG Insulin] 1 unit SQ UD Insulin Glargine [Lantus Insulin] 50 unit SQ BID Discontinued lisinopriL [Zestril] 2.5 mg PO DAILY Instructions: Heart Healthy Diet, Heart Failure, Adult (DC) Additional Instructions: A REFERRAL WAS SENT TO [facility]- THEY WILL CONTACT YOU TO SEE IF THEY HELP YOU TO MANAGE HER CARE AT HOME. THEIR PHONE NUMBER IS [phone] IF YOU HAVE ANY NEEDS OR QUESTIONS BEFORE THEY CONTACT YOU. DR. FOSTER'S OFFICE WILL GIVE YOU 2 WEEKS WORTH OF ELIQUIS IN SAMPLES. GO TO THEIR OFFICE IMMEDIATELY AFTER DISCHARGE TO PICK THESE UP- THEY ARE OPEN UNTIL 4:30 PM TODAY. IF YOU'RE UNABLE TO MAKE YOUR APT WITH DR. FOSTER OR IT GETS RESCHEDULED- YOU NEED TO NOTIFY THEM YOU WILL NEED MORE ELIQUIS SAMPLES OR SEE WHAT ELSE THEY WOULD LIKE TO DO. [facility] CAN HELP YOU WITH THIS WELL IF YOU NEED ASSISTANCE. ( SEE NUMBER ABOVE) A ROLLATOR WAS ORDERED FOR YOU THRU [facility] ()- THEY WILL DELIVER THIS TO YOUR HOME. IF YOU NEED TO CONTACT THEM TO FOLLOW UP, YOU CAN DO SO AT [phone] Follow up with: ROGELIO CAVAZOS DO [ACTIVE STAFF] - 08/07/23 11:15 am MICHELA WINTERS [NON-STAFF PHY W/O PRIVILEGES] - 11/27/23 11:00 am (IF AN APPOITMENT OPENS UP SOONER THE OFFICE WILL CALL AND NOTIFY THE PATIENT. ) Sim Foster MD [CONSULTING PHYSICIAN] - 08/13/23 10:45 am Forms: Discharge Instructions
--- NOTE | 2023-08-01 07:44 | ECHO ---
DATE OF PROCEDURE: 07/29/2023 CLINICAL INFORMATION: Exacerbation of congestive heart failure. The M-mode 2D, and Doppler echocardiogram including color flow Doppler are limited. The patient was unable to cooperate for the exam. The left ventricle is normal in size. There is borderline concentric left ventricular hypertrophy. There is hypokinesis of left ventricular septum. The left ventricular systolic function is mildly decreased. The ejection fraction is calculated to be 33%. The right ventricle has a pacing electrode. The left atrium is moderately dilated. The interatrial septum is intact. The right atrium is normal. The aortic valve opens well. It is trileaflet. There is no aortic regurgitation. There is mitral valve leaflet thickening associated with mild mitral regurgitation. There is mild tricuspid regurgitation. The right ventricular systolic pressure is calculated to be 28 mm of Mercury. The pulmonic valve is not well visualized. The aortic root is normal. There is no pericardial effusion present. IMPRESSION: 1) MODERATE DECREASE IN LEFT VENTRICULAR SYSTOLIC FUNCTION. 2) BORDERLINE CONCENTRIC LEFT VENTRICULAR HYPERTROPHY. 4) HYPOKINESIS OF THE INTERVENTRICULAR SEPTUM. 5) RIGHT VENTRICULAR PACING ELECTRODE. 6) MODERATE LEFT ATRIAL DILATATION. 7) MILD MITRAL REGURGITATION. 8) MILD TRICUSPID REGURGITATION. 9) NORMAL RIGHT VENTRICULAR SYSTOLIC PRESSURE.
== END 2023-07-31 12:25 | disposition home or self-care (01) ==
LOC: ED 22:14 → MED SURG 07-28 00:37
PROVIDERS: ADMIT Student in an Organized Health Care Education/Training Program; ATTEND Student in an Organized Health Care Education/Training Program
DX: I11.0 Hypertensive heart disease with heart failure (principal); I50.9 Heart failure, unspecified; F41.9 Anxiety disorder, unspecified; L98.9 Disorder of the skin and subcutaneous tissue, unspecified; E11.65 Type 2 diabetes mellitus with hyperglycemia; E87.1 Hypo-osmolality and hyponatremia; E87.6 Hypokalemia; E78.5 Hyperlipidemia, unspecified; R79.89 Other specified abnormal findings of blood chemistry; G25.81 Restless legs syndrome; M62.838 Other muscle spasm; R14.0 Abdominal distension (gaseous); R60.0 Localized edema; N50.89 Other specified disorders of the male genital organs; I49.9 Cardiac arrhythmia, unspecified; S60.522A Blister (nonthermal) of left hand, initial encounter; E11.622 Type 2 diabetes mellitus with other skin ulcer; L97.929 Non-pressure chronic ulcer of unspecified part of left lower leg with unspecified severity; L97.919 Non-pressure chronic ulcer of unspecified part of right lower leg with unspecified severity; Z20.828 Contact with and (suspected) exposure to other viral communicable diseases; Z79.899 Other long term (current) drug therapy; Z59.6 Low income; Z55.9 Problems related to education and literacy, unspecified
CPT/HCPCS: 36000; 36415; 71045; 71250; 74176; 76705; 80051; 80053; 80061; 80307; 82947; 83036; 83721; 83735; 83880; 84443; 84484; 85025; 85027; 93005; 93041; 93306; 93970; 94640; 94760; 96374; 96375; 99285; 99291; Q3014; 93268; J1650; J1815; J1817; J1940; J2060; J7609; A9270-GY; G0378

== ENCOUNTER 2023-09-19 09:59 | Observation (INO) | payer MEDICARE ==
[2023-09-19 10:23] LABS: Absolute Neutrophil Ct (ANC) 5.63 x10^3/uL (1.4-6.9); BASOPHIL % 0.7 % (0.0-0.4); Basophil (Absolute #) 0.05 x10^3/uL (0-0.4); Eosinophil % 0.7 % (0.00-5.0); Eosinophil (Absolute #) 0.05 x10^3/uL (0-0.5); Hematocrit 36.9 % (42-50); Hemoglobin 11.9 g/dL (12.5-18.0); IMMATURE GRAN # 0.02 x10^3u/L (0.00-0.03); IMMATURE GRAN % 0.3 % (0.00-0.4); Lymphocytes % 11.5 % (24.0-44.0); Mean Cell Volume 86.4 fL (78-100); Mean Corpuscular Hemoglobin 27.9 pg (26-32); Mean Corpuscular Hgb Concent. 32.2 g/dL (32-36); Mean Platelet Volume 10.7 fL (7.5-11.0); Monocyte (Absolute #) 0.42 x10^3/uL (0.0-1.3); Neutrophil % 80.8 % (36.0-66.0); Platelet Count 174 x10^3/uL (150-450); Red Blood Count 4.27 x10^6/uL (4.1-5.6); Red Cell Distribution Width 14.1 % (11.5-14.0)
--- NOTE | 2023-09-19 10:24 | ERPHSYRPT ---
- History of Present Illness Time Seen by Provider: 09/19/23 10:16 Source: patient Patient Subjective Stated Complaint: Pt c/o of cough, shortness of breath, pain in chest when he coughs Triage Nursing Assessment: Pt drove self to the ER, hypertensive, rates pain in chest when he coughs as 6/10, crackles in left side, cough with small amount of white sputum, water blister on his left thumb tip, pt has a hx of blisters on the other hands fingers and had to have them amputated, pulses normal, skin n/w/d, denies N&V Physician History: The patient is a 63-year-old with history of COPD CHF congestive heart failure atrial fib with a pacemaker who presents with cough shortness of breath. He is having dyspnea on exertion. He is having orthopnea. He had the symptoms before.The patient also has a blister on his left thumb. He has had amputations on his right hand. 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 The blister popped up Timing/Duration: yesterday Allergies/Adverse Reactions: diphenhydramine [From Benadryl] Allergy (Verified 09/19/23 10:16) Difficulty Breathing Iodinated Contrast Media Allergy (Verified 09/19/23 10:16) Difficulty Breathing Home Medications: Atorvastatin Calcium [Lipitor 40Mg] 40 mg PO HS 07/28/23 [History] Carvedilol 3.125 mg [Coreg 3.125 MG] 3.125 mg PO BID 07/28/23 [History] Cyanocobalamin (Vitamin B-12) [B-12] 1,000 mcg PO DAILY 07/28/23 [History] Duloxetine HCl [Cymbalta] 60 mg PO BID 07/28/23 [History] Insulin Aspart [NovoLOG Insulin] 1 unit SQ UD 07/28/23 [History] Insulin Glargine [Lantus Insulin] 50 unit SQ BID 07/28/23 [History] Omeprazole 40 mg PO DAILY 07/28/23 [History] Panax Ginseng Root Extract [Ginseng Extract] 200 mg PO DAILY 07/28/23 [History] Ropinirole 2Mg [Requip 2Mg Tab] 2 mg PO HS 07/28/23 [History] Torsemide 20 mg [Demadex 20 mg] 20 mg PO DAILY 07/28/23 [History] Trazodone HCl 50 mg [Desyrel 50 mg] 50 mg PO HS 07/28/23 [History] Hx Tetanus, Diphtheria Vaccination/Date Given: Yes Hx Influenza Vaccination/Date Given: Yes Hx Pneumococcal Vaccination/Date Given: Yes Travel Risk - International Travel Have you traveled outside of the country in past 3 weeks: No - Coronavirus Screening Are you exhibiting any of the following symptoms?: Yes Symptoms: Cough: New Onset, Shortness of Breath Close contact with a COVID-19 positive Pt in past 14-21 Days: No - Vaccine Status Have you recieved a Covid-19 vaccination: Yes [employer]: [facility] - Vaccination Dates Date of 2cond Vaccination (if applicable): n/a - Review of Systems Constitutional: No Fever, No Chills Eyes: No Symptoms Ears, Nose, & Throat: No Symptoms Respiratory: Dyspnea, No Cough Cardiac: Chest Pain, Edema, No Syncope Abdominal/Gastrointestinal: No Abdominal Pain, No Nausea, No Vomiting, No Diar shayla Genitourinary Symptoms: No Dysuria Musculoskeletal: No Back Pain, No Neck Pain Skin: Other, No Rash Neurological: No Dizziness, No Focal Weakness, No Sensory Changes Psychological: No Symptoms Endocrine: No Symptoms All Other Systems: Reviewed and Negative - Past Medical History Pertinent Past Medical History: Yes Neurological History: Peripheral Neuropathy ENT History: Cataracts Cardiac History: Arrhythmia, Congestive Heart Failure, Hypertension Respiratory History: Bronchitis, CHF, COPD, Sleep Apnea Endocrine Medical History: Diabetes Type II Musculoskeletal History: Osteoarthritis GI Medical History: GERD History: No Pertinent History Psycho-Social History: Anxiety, Depression Male Reproductive Disorders: No Pertinent History Other Medical History: a.fib, restless leg - Past Surgical History Past Surgical History: Yes Neuro Surgical History: No Pertinent History Cardiac: Pacemaker Respiratory: No Pertinent History Gastrointestinal: Cholecystectomy Genitourinary: No Pertinent History Musculoskeletal: Amputation Male Surgical History: No Pertinent History Other Surgical History: cardiac ablation, 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 - Social History Smoking Status: Never smoker Exposure to second hand smoke: Yes Drug Use: none Patient Lives Alone: No - Nursing Vital Signs Nursing Vital Signs: Initial Vital Signs Temperature 98.6 F 09/19/23 10:00 Pulse Rate 97 H 09/19/23 10:00 Respiratory Rate 20 09/19/23 10:00 Blood Pressure 156/104 09/19/23 10:00 O2 Sat by Pulse Oximetry 98 09/19/23 10:00 Pain Scale Pain Intensity 6 - Physical Exam General Appearance: no apparent distress, alert Eye Exam: PERRL/EOMI Neck Exam: normal inspection, supple Cardiovascular/Chest Exam: normal heart sounds, regular rate/rhythm Abdominal/Gastrointestinal Exam: soft, No tenderness, No distention, No mass Extremity Exam: non-tender, normal range of motion, normal inspection, no calf tenderness, no pedal edema Neurologic Exam: alert, oriented x 3, cooperative, burlap spreader II-XII nml as tested, sensation nml, No motor deficits Skin Exam: normal color, warm, No dry SpO2 Interpretation: normal SpO2: 96 Comments: The patient has a blister on the volar aspect of his left thumb. It clears to be clear fluid. The patient is not in respiratory distress. There is trace edema to the lower extremities - Course Nursing assessment & vital signs reviewed: Yes Ordered Tests: Active Orders 24 hr Category Date Time Status Up Ad Araceli ROUTINE Activity 09/19/23 13:22 Active Call Admit Doctor for Orders ON ADMISSION Care 09/19/23 13:22 Active Ad Trafficker ROUTINE Care 09/19/23 13:22 Active Ad Trafficker STAT Care 09/19/23 10:16 Completed Code Status Order ROUTINE Care 09/19/23 13:22 Active EKG-ER Only STAT Care 09/19/23 10:14 Completed IV Insertion STAT Care 09/19/23 10:14 Completed POCT Glucose Check ACHS Care 09/19/23 13:[address] in Observation ROUTINE Care 09/19/23 13:22 Active Telemetry q6h Care 09/19/23 13:22 Active Heart-Healthy Diet Diet 09/19/23 Lunch Active CHEST 1 VIEW (PORTABLE) Stat Exams 09/19/23 10:15 Completed CBC W DIFF Stat Lab 09/19/23 10:14 Completed CMP Stat Lab 09/19/23 10:15 Completed CULTURE,WOUND Stat Lab 09/19/23 10:33 Received NT PRO BNPII Stat Lab 09/19/23 10:15 Completed PROTIME WITH INR Stat Lab 09/19/23 10:15 Completed PTT Stat Lab 09/19/23 10:15 Completed TROPONIN Q4H Lab 09/19/23 10:15 Completed TROPONIN Q4H Lab 09/19/23 14:15 Ordered TROPONIN Q4H Lab 09/19/23 18:15 Ordered Transfer Order Routine Transfer 09/19/23 Completed Medication Summary Generic Name Dose Route Start Last Admin Trade Name Freq PRN Reason Stop Dose Admin Acetaminophen 650 mg 09/19/23 13:53 Acetaminophen 325 Mg Tablet PO 10/19/23 13:52 Q4H PRN PRN PAIN, FEVER, HEADACHE Albuterol/Ipratropium 3 ml 09/19/23 19:00 Ipratropium/Albuterol Sulfate 3 Ml Ampul.Neb IH 10/19/23 18:59 Q6HRT [facility] Furosemide 40 mg 09/20/23 10:00 Furosemide 40 Mg/4 Ml Vial IV 10/20/23 09:59 DAILY [facility] Hydralazine HCl 5 mg 09/19/23 13:53 Hydralazine Hcl 20 Mg/Ml Vial IV 10/19/23 13:52 [id number] PRN HYPERTENSION Insulin Human Lispro 0 unit 09/19/23 13:53 Insulin Lispro 1 Unit SQ 10/19/23 13:52 UD PRN HYPERGLYCEMIA Nirmatrelvir/Ritonavir 1 each 09/19/23 22:00 Nirmatrelvir/Ritonavir 1 Each Tab.Ds.Pk PO 10/19/23 21:59 BID [facility] Ondansetron HCl 4 mg 09/19/23 13:53 Ondansetron Hcl 4 Mg/2 Ml Vial IV 10/19/23 13:52 Q6H PRN PRN NAUSEA/VOMITING Pantoprazole Sodium 40 mg 09/20/23 10:00 Protonix (Pantoprazole) 40 Mg Tablet PO 10/20/23 09:59 DAILY [facility] Lab/Rad Data: Laboratory Result Diagrams 09/19/23 10:14 09/19/23 10:15 Laboratory Results 09/19/23 09/19/23 09/19/23 Range/Units 10:40 10:15 10:15 WBC (4.0-10.5) x10^3/uL RBC (4.1-5.6) x10^6/uL Hgb (12.5-18.0) g/dL Hct (42-50) % MCV (78-100) fL MCH (26-32) pg MCHC (32-36) g/dL RDW (11.5-14.0) % Plt Count (150-450) x10^3/uL MPV (7.5-11.0) fL Gran % (36.0-66.0) % Immature Gran % (Auto) (0.00-0.4) % Nucleat RBC Rel Count (0.00-0.1) % Eos # (Auto) (0-0.5) x10^3/uL Immature Gran # (Auto) (0.00-0.03) x10^3u/L Absolute Lymphs (auto) (1.0-4.6) x10^3/uL Absolute Monos (auto) (0.0-1.3) x10^3/uL Absolute Nucleated RBC (0.00-0.01) x10^3u/L Lymphocytes % (24.0-44.0) % Monocytes % (0.0-12.0) % Eosinophils % (0.00-5.0) % Basophils % (0.0-0.4) % Absolute Granulocytes (1.4-6.9) x10^3/uL Basophils # (0-0.4) x10^3/uL PT 10.4 (9.4-12.5) SECONDS INR 0.95 (0.8-3.0) APTT 27.3 (25.1-36.5) SECONDS Sodium (137-145) mmol/L Potassium (3.5-5.1) mmol/L Chloride (98-107) mmol/L Carbon Dioxide (22-30) mmol/L Anion Gap (5-15) MEQ/L BUN (9-20) mg/dL Creatinine (0.66-1.25) mg/dL Estimated GFR ML/MIN Glucose (74-106) mg/dL Calcium (8.4-10.2) mg/dL Total Bilirubin (0.2-1.3) mg/dL AST (17-59) U/L ALT (0-50) U/L Alkaline Phosphatase (38-126) U/L Troponin I 0.171 H* (0.000-0.034) ng/mL NT-Pro-B Natriuret Pep (<300) pg/mL Serum Total Protein (6.3-8.2) g/dL Albumin (3.5-5.0) g/dL Influenza Type A Ag NEGATIVE (NEGATIVE) Influenza Type B Ag NEGATIVE (NEGATIVE) RSV (PCR) NEGATIVE (NEGATIVE) SARS-CoV-2 (PCR) POSITIVE A (NEGATIVE) 09/19/23 09/19/23 Range/Units 10:15 10:14 WBC 7.0 (4.0-10.5) x10^3/uL RBC 4.27 (4.1-5.6) x10^6/uL Hgb 11.9 L (12.5-18.0) g/dL Hct 36.9 L (42-50) % MCV 86.4 (78-100) fL MCH 27.9 (26-32) pg MCHC 32.2 (32-36) g/dL RDW 14.1 H (11.5-14.0) % Plt Count 174 (150-450) x10^3/uL MPV 10.7 (7.5-11.0) fL Gran % 80.8 H (36.0-66.0) % Immature Gran % (Auto) 0.3 (0.00-0.4) % Nucleat RBC Rel Count 0.0 (0.00-0.1) % Eos # (Auto) 0.05 (0-0.5) x10^3/uL Immature Gran # (Auto) 0.02 (0.00-0.03) x10^3u/L Absolute Lymphs (auto) 0.80 L (1.0-4.6) x10^3/uL Absolute Monos (auto) 0.42 (0.0-1.3) x10^3/uL Absolute Nucleated RBC 0.00 (0.00-0.01) x10^3u/L Lymphocytes % 11.5 L (24.0-44.0) % Monocytes % 6.0 (0.0-12.0) % Eosinophils % 0.7 (0.00-5.0) % Basophils % 0.7 (0.0-0.4) % Absolute Granulocytes 5.63 (1.4-6.9) x10^3/uL Basophils # 0.05 (0-0.4) x10^3/uL PT (9.4-12.5) SECONDS INR (0.8-3.0) APTT (25.1-36.5) SECONDS Sodium 126 L (137-145) mmol/L Potassium 4.3 (3.5-5.1) mmol/L Chloride 94 L (98-107) mmol/L Carbon Dioxide 25 (22-30) mmol/L Anion Gap 11.7 (5-15) MEQ/L BUN 19 (9-20) mg/dL Creatinine 0.96 (0.66-1.25) mg/dL Estimated GFR 87.7 ML/MIN Glucose 486 H (74-106) mg/dL Calcium 8.4 (8.4-10.2) mg/dL Total Bilirubin 0.80 (0.2-1.3) mg/dL AST 27 (17-59) U/L ALT 28 (0-50) U/L Alkaline Phosphatase 169 H (38-126) U/L Troponin I (0.000-0.034) ng/mL NT-Pro-B Natriuret Pep 7490 (<300) pg/mL Serum Total Protein 6.8 (6.3-8.2) g/dL Albumin 3.5 (3.5-5.0) g/dL Influenza Type A Ag (NEGATIVE) Influenza Type B Ag (NEGATIVE) RSV (PCR) (NEGATIVE) SARS-CoV-2 (PCR) (NEGATIVE) The patient has an EKG which shows underlying rhythm of atrial fibrillation rate of 90. Intraventricular conduction delay. This may be paced although difficult to visualize ventricular paced spikes no acute ST wave changes this was interpreted by myself rate of 90 ' Procedures: 1308-2916 RAD/CHEST 1 VIEW (PORTABLE) Indication: Short of breath. Comparison: July 27, 2023 Portable chest again demonstrates borderline cardiomegaly with left pacemaker. Remaining lungs are now clear again with incidental right base calcified granuloma. Bony thorax intact. No acute findings. Reported by: CHARY ROBERTO DO Signed by: CHARY ROBERTO DO Signed date/time: 09/19/23 1043 Copies to: DOCTOR,NO FAMILY [employer]MEDE[facility] - Progress Progress: unchanged Air Movement: good Progress Note: 09/19/23 10:26 Dyspnea History of CHF Chest pain Cough The patient will have a full evaluation including cardiac workup. The patient will get a chest x-ray EKG and blood work including troponin and BNP The patient has history of neuropathy. The patient also has a blister on his le ft thumb. This does not appear to be infected. The patient has a history of MRSA. We will send off a wound culture 09/19/23 11:51 The patient was COVID-positive. Blood work shows hyponatremia. The patient will be discussed with possible admission. I feel the troponin was mildly elevated due to congestive heart failure. 09/19/23 12:31 The patient was COVID-positive. The patient is hyponatremia. The patient will be admitted for congestive heart failure as well. The patient has an elevated BNP as well as a mildly elevated troponin. I feel the troponin is elevated due to congestive heart failure The patient does not show any signs of pneumonia or hypoxia. The patient will be admitted due to multiple comorbidities. The patient was discussed with the hospitalist. Bridge admission orders were written Medical Desision Making - Discussion of managment Care discussed with:: hospitalist Reviewed:: Test results, Need for additional workup Agreed on:: place in obs Will see patient: in hospital - Departure Departure Disposition: Observation Clinical Impression: Acute exacerbation of CHF (congestive heart failure), Elevated troponin, HTN (hypertension), COVID, Hyponatremia Condition: Good Critical Care Time: No
[2023-09-19 10:38] LABS: INR 0.95 (0.8-3.0); PROTIME 10.4 SECONDS (9.4-12.5); PTT 27.3 SECONDS (25.1-36.5)
--- NOTE | 2023-09-19 10:43 | XRAY ---
Indication: Short of breath. Comparison: July 27, 2023 Portable chest again demonstrates borderline cardiomegaly with left pacemaker. Remaining lungs are now clear again with incidental right base calcified granuloma. Bony thorax intact. No acute findings.
[2023-09-19 10:45] LABS: ALBUMIN 3.5 g/dL (3.5-5.0); ANION GAP 11.7 MEQ/L (5-15); BILIRUBIN,TOTAL 0.8 mg/dL (0.2-1.3); Calcium 8.4 mg/dL (8.4-10.2); Creatinine 1 0.96 mg/dL (0.66-1.25); EST GLOMERULAR FILTRATION RATE 87.7 ML/MIN; Potassium 4.3 mmol/L (3.5-5.1); Total Protein 6.8 g/dL (6.3-8.2)
[2023-09-19 11:06] LABS: INFLUENZA A NEGATIVE (NEGATIVE); INFLUENZA B NEGATIVE (NEGATIVE); RESPIRATORY SYNCTIAL VIRUS NEGATIVE (NEGATIVE)
[2023-09-19 11:07] LABS: SARS-CoV-2 Xpert Express POSITIVE (NEGATIVE)
--- NOTE | 2023-09-19 13:39 | PCM.HP ---
History of Present Illness - Chief Complaint Chief Complaint: CHF, dyspnea, COVID Date: 09/19/23 History of Present Illness: Mr. Gomez is a 63 year old male with a pmhx of peripheral neuropathy, arrhythmia, CHF, HTN, CHF, COPD,KASHMIR, DMII, OA, anxiety, AFIB with pacemaker, and restless legs who presented to ED 09/19/23 with complaints of shortness of breath, cough, and diarrhea for the past three days. No recent sick contacts. No fever. Patient reports greater than 3 episodes of diarrhea daily for 3 day, none since last night. Cough with clear sputum. In ED patient hypertensive but otherwise vitals unremarkable. Spo2 @ 98% on RA. CXR demonstrates borderline cardiomegaly with left pacemaker. Remaining lungs are now clear again with incidental right base calcified granuloma. EKG which shows underlying rhythm of atrial fibrillation rate of 90. Intraventricular c onduction delay. This may be paced although difficult to visualize ventricular paced spikes no acute ST wave changes this was interpreted ED physician rate of 90. Lab findings remarkable for hgb at 11.9, moderate hyponatremia at 126 in the setting of hyperglycemia, hyperglycemia with blood glucose levels at 486, alk tee at 169, BNP at 7490, and trop elevated at 0.171. Patient is COVID positive. - Review of Systems Constitutional: Fatigue Eyes: No Symptoms Ears, Nose, & Throat: No Symptoms Respiratory: Cough, Short Of Breath Cardiac: No Symptoms Abdominal/Gastrointestinal: No Symptoms Genitourinary Symptoms: No Symptoms Musculoskeletal: No Symptoms Skin: Other (blister to left thumb) Neurological: Sensory Changes (BLE peripheral neuropathy) Psychological: No Symptoms Endocrine: No Symptoms Hematologic/Lymphatic: No Symptoms Immunological/Allergic: No Symptoms Medications & Allergies Home Medications: Home Medication List Atorvastatin Calcium [Lipitor 40Mg] 40 mg PO HS 07/28/23 [History Confirmed 09/19/23] Carvedilol 3.125 mg [Coreg 3.125 MG] 3.125 mg PO BID 07/28/23 [History Confirmed 09/19/23] Cyanocobalamin (Vitamin B-12) [B-12] 1,000 mcg PO DAILY 07/28/23 [History Confirmed 09/19/23] Duloxetine HCl [Cymbalta] 60 mg PO BID 07/28/23 [History Confirmed 09/19/23] Insulin Aspart [NovoLOG Insulin] 1 unit SQ UD 07/28/23 [History Confirmed 09/19/23] Insulin Glargine [Lantus Insulin] 50 unit SQ BID 07/28/23 [History Confirmed 09/19/23] Omeprazole 40 mg PO DAILY 07/28/23 [History Confirmed 09/19/23] Panax Ginseng Root Extract [Ginseng Extract] 200 mg PO DAILY 07/28/23 [History Confirmed 09/19/23] Ropinirole 2Mg [Requip 2Mg Tab] 2 mg PO HS 07/28/23 [History Confirmed 09/19/23] Torsemide 20 mg [Demadex 20 mg] 20 mg PO DAILY 07/28/23 [History Confirmed 09/19/23] Trazodone HCl 50 mg [Desyrel 50 mg] 50 mg PO HS 07/28/23 [History Confirmed 09/19/23] Apixaban [Eliquis 2.5 mg Tablet] 5 mg PO BID 30 Days #60 tablet 07/30/23 [Rx Confirmed 09/19/23] Carvedilol 3.125 mg [Coreg 3.125 MG] 6.25 mg PO BID 30 Days #120 tablet 07/30/23 [Rx Confirmed 09/19/23] Empagliflozin [Jardiance] 10 mg PO DAILY 30 Days #30 tablet 07/30/23 [Rx Confirmed 09/19/23] Spironolactone 25 mg [Aldactone 25 MG] 25 mg PO DAILY 30 Days #30 tablet 07/30/23 [Rx Confirmed 09/19/23] Furosemide 40 mg [Lasix 40 MG] 40 mg PO DAILY 30 Days #30 tablet 07/31/23 [Rx Confirmed 09/19/23] Lisinopril 10 mg [Zestril 10 MG] 10 mg PO DAILY 30 Days #30 tablet 07/31/23 [Rx Confirmed 09/19/23] Potassium Chloride Tab* [Klor Con] 20 meq PO DAILY 30 Days #30 tablet 07/31/23 [Rx Confirmed 09/19/23] Allergies/Adverse Reactions: Allergies Allergy/AdvReac Type Severity Reaction Status Date / Time diphenhydramine Allergy Difficulty Verified 09/19/23 10:16 [From Benadryl] Breathing Iodinated Contrast Media Allergy Difficulty Verified 09/19/23 10:16 Breathing - Past Medical History Past Medical History: Yes Neurological History: Peripheral Neuropathy ENT History: Cataracts Cardiac History: Arrhythmia, Congestive Heart Failure, Hypertension Respiratory History: Bronchitis, CHF, COPD, Sleep Apnea Endocrine Medical History: Diabetes Type II Musculoskelatal History: Osteoarthritis GI Medical History: GERD History: No Pertinent History Pyscho-Social History: Anxiety, Depression Male Reproductive Disorders: No Pertinent History Comment: a.fib, restless leg - Past Surgical History Past Surgical History: Yes Neuro Surgical History: No Pertinent History Cardiac History: Pacemaker Respiratory Surgery: No Pertinent History GI Surgical History: Cholecystectomy Genitourinary Surgical Hx: No Pertinent History Musculskeletal Surgical Hx: Amputation Male Surgical History: No Pertinent History Other Surgical History: cardiac ablation, 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 - Social History Smoking Status: Never smoker Exposure to second hand smoke: Yes Alcohol: None Drug Use: none - Physical Exam Vital Signs: Vital Signs - 24 hr Temp Pulse Resp BP BP Pulse Ox 09/19/23 12:33 96 09/19/23 12:00 75 20 159/99 98 09/19/23 11:30 77 16 167/100 95 09/19/23 11:00 76 25 H 168/98 98 09/19/23 10:30 84 13 161/102 96 09/19/23 10:00 98.6 F 77 17 156/104 156/104 98 General Appearance: no apparent distress Neurologic Exam: alert, oriented x 3, cooperative Eye Exam: PERRL/EOMI Ears, Nose, Throat Exam: normal ENT inspection Neck Exam: normal inspection Respiratory Exam: normal breath sounds, lungs clear Cardiovascular Exam: regular rate/rhythm, normal heart sounds Gastrointestinal/Abdomen Exam: soft, normal bowel sounds Rectal Exam: deferred Back Exam: normal inspection Extremity Exam: amputations (Right 2nd and 3rd digits), pedal edema (+2), swelling (BLE +2 pitting) Skin Exam: other (left thumb with blister to tip) Results - Labs Lab/Micro Results: Lab Results-Last 24 Hours 09/19/23 09/19/23 09/19/23 Range/Units 10:14 10:15 10:15 WBC 7.0 (4.0-10.5) x10^3/uL RBC 4.27 (4.1-5.6) x10^6/uL Hgb 11.9 L (12.5-18.0) g/dL Hct 36.9 L (42-50) % MCV 86.4 (78-100) fL MCH 27.9 (26-32) pg MCHC 32.2 (32-36) g/dL RDW 14.1 H (11.5-14.0) % Plt Count 174 (150-450) x10^3/uL MPV 10.7 (7.5-11.0) fL Gran % 80.8 H (36.0-66.0) % Immature Gran % (Auto) 0.3 (0.00-0.4) % Nucleat RBC Rel Count 0.0 (0.00-0.1) % Eos # (Auto) 0.05 (0-0.5) x10^3/uL Immature Gran # (Auto) 0.02 (0.00-0.03) x10^3u/L Absolute Lymphs (auto) 0.80 L (1.0-4.6) x10^3/uL Absolute Monos (auto) 0.42 (0.0-1.3) x10^3/uL Absolute Nucleated RBC 0.00 (0.00-0.01) x10^3u/L Lymphocytes % 11.5 L (24.0-44.0) % Monocytes % 6.0 (0.0-12.0) % Eosinophils % 0.7 (0.00-5.0) % Basophils % 0.7 (0.0-0.4) % Absolute Granulocytes 5.63 (1.4-6.9) x10^3/uL Basophils # 0.05 (0-0.4) x10^3/uL PT 10.4 (9.4-12.5) SECONDS INR 0.95 (0.8-3.0) APTT 27.3 (25.1-36.5) SECONDS Sodium 126 L (137-145) mmol/L Potassium 4.3 (3.5-5.1) mmol/L Chloride 94 L (98-107) mmol/L Carbon Dioxide 25 (22-30) mmol/L Anion Gap 11.7 (5-15) MEQ/L BUN 19 (9-20) mg/dL Creatinine 0.96 (0.66-1.25) mg/dL Estimated GFR 87.7 ML/MIN Glucose 486 H (74-106) mg/dL Calcium 8.4 (8.4-10.2) mg/dL Total Bilirubin 0.80 (0.2-1.3) mg/dL AST 27 (17-59) U/L ALT 28 (0-50) U/L Alkaline Phosphatase 169 H (38-126) U/L Troponin I (0.000-0.034) ng/mL NT-Pro-B Natriuret Pep 7490 (<300) pg/mL Serum Total Protein 6.8 (6.3-8.2) g/dL Albumin 3.5 (3.5-5.0) g/dL Influenza Type A Ag (NEGATIVE) Influenza Type B Ag (NEGATIVE) RSV (PCR) (NEGATIVE) SARS-CoV-2 (PCR) (NEGATIVE) 09/19/23 09/19/23 Range/Units 10:15 10:40 WBC (4.0-10.5) x10^3/uL RBC (4.1-5.6) x10^6/uL Hgb (12.5-18.0) g/dL Hct (42-50) % MCV (78-100) fL MCH (26-32) pg MCHC (32-36) g/dL RDW (11.5-14.0) % Plt Count (150-450) x10^3/uL MPV (7.5-11.0) fL Gran % (36.0-66.0) % Immature Gran % (Auto) (0.00-0.4) % Nucleat RBC Rel Count (0.00-0.1) % Eos # (Auto) (0-0.5) x10^3/uL Immature Gran # (Auto) (0.00-0.03) x10^3u/L Absolute Lymphs (auto) (1.0-4.6) x10^3/uL Absolute Monos (auto) (0.0-1.3) x10^3/uL Absolute Nucleated RBC (0.00-0.01) x10^3u/L Lymphocytes % (24.0-44.0) % Monocytes % (0.0-12.0) % Eosinophils % (0.00-5.0) % Basophils % (0.0-0.4) % Absolute Granulocytes (1.4-6.9) x10^3/uL Basophils # (0-0.4) x10^3/uL PT (9.4-12.5) SECONDS INR (0.8-3.0) APTT (25.1-36.5) SECONDS Sodium (137-145) mmol/L Potassium (3.5-5.1) mmol/L Chloride (98-107) mmol/L Carbon Dioxide (22-30) mmol/L Anion Gap (5-15) MEQ/L BUN (9-20) mg/dL Creatinine (0.66-1.25) mg/dL Estimated GFR ML/MIN Glucose (74-106) mg/dL Calcium (8.4-10.2) mg/dL Total Bilirubin (0.2-1.3) mg/dL AST (17-59) U/L ALT (0-50) U/L Alkaline Phosphatase (38-126) U/L Troponin I 0.171 H* (0.000-0.034) ng/mL NT-Pro-B Natriuret Pep (<300) pg/mL Serum Total Protein (6.3-8.2) g/dL Albumin (3.5-5.0) g/dL Influenza Type A Ag NEGATIVE (NEGATIVE) Influenza Type B Ag NEGATIVE (NEGATIVE) RSV (PCR) NEGATIVE (NEGATIVE) SARS-CoV-2 (PCR) POSITIVE A (NEGATIVE) - Radiology Impressions Radiology Exams & Impressions: Radiology Procedures Category Date Time Status CHEST 1 VIEW (PORTABLE) Stat Exams 09/19/23 10:15 Completed Assessment/Plan (1) COVID Current Visit: Yes Status: Acute Assessment & Plan: -No hypoxia, patient at baseline RA - no indication for dexamethasone -Paxlovid -CXR with no cardiopulmonary processes Code(s): U07.1 - COVID-19 (2) Acute exacerbation of CHF (congestive heart failure) Current Visit: Yes Status: Acute Assessment & Plan: HFREF with EF at 33% -Supplemental oxygen for goal spo2 > 92% -Dry weight -Monitor daily weights/I&O -IV lasix -Echo performed 07/29/23: EF 33% IMPRESSION: 1) MODERATE DECREASE IN LEFT VENTRICULAR SYSTOLIC FUNCTION. 2) BORDERLINE CONCENTRIC LEFT VENTRICULAR HYPERTROPHY. 4) HYPOKINESIS OF THE INTERVENTRICULAR SEPTUM. 5) RIGHT VENTRICULAR PACING ELECTRODE. 6) MODERATE LEFT ATRIAL DILATATION. 7) MILD MITRAL REGURGITATION. 8) MILD TRICUSPID REGURGITATION. 9) NORMAL RIGHT VENTRICULAR SYSTOLIC PRESSURE -Optimize electrolytes for goal K>4, MG >2 -Cards consult -Trops elevated, most likely secondary to exacerbation of CHF -BNP at 7490 -Repeat trops/ekg in the morning -lipid in the a.m. Code(s): I50.9 - HEART FAILURE, UNSPECIFIED (3) Elevated troponin Current Visit: Yes Status: Acute Assessment & Plan: -Initial trop elevated, will continue to monitor, most likely secondary to chf exacerbation -EKG which shows underlying rhythm of atrial fibrillation rate of 90. Intraventricular conduction delay. -Repeat EKG/Trops in a.m. -Cards consult Code(s): R79.89 - OTHER SPECIFIED ABNORMAL FINDINGS OF BLOOD CHEMISTRY (4) HTN (hypertension) Current Visit: Yes Status: Acute Assessment & Plan: -Continue home meds, add hydralazine prn for SBP > 180 DBP >100 Code(s): I10 - ESSENTIAL (PRIMARY) HYPERTENSION (5) Hyponatremia Current Visit: Yes Status: Acute Assessment & Plan: -In the setting of hyperglycemia, should correct as blood glucose levels stabilize -IVF Code(s): E87.1 - HYPO-OSMOLALITY AND HYPONATREMIA (6) Anxiety Current Visit: No Status: Acute Assessment & Plan: -UDS -Trazadone for sleep Code(s): F41.9 - ANXIETY DISORDER, UNSPECIFIED (7) Hyperlipidemia Current Visit: No Status: Acute Assessment & Plan: -continue statin Code(s): E78.5 - HYPERLIPIDEMIA, UNSPECIFIED (8) Skin abnormalities Current Visit: No Status: Acute Assessment & Plan: -Blister to left thumb -Advised derm follow up Code(s): L98.9 - DISORDER OF THE SKIN AND SUBCUTANEOUS TISSUE, UNSPECIFIED (9) Uncontrolled diabetes mellitus Current Visit: No Status: Acute Qualifiers: Diabetes mellitus type: type 2 Glycemic state: with hyperglycemia Qualified Code(s): E11.65 - Type 2 diabetes mellitus with hyperglycemia Assessment & Plan: -glucose level at 486 -Recent a1c at 13.56 07/28/23 -Meal time/glargine/SSI -ADA diet -Discussed importance of good glycemic control Code(s): EVW8410 - (10) Afib Current Visit: Yes Status: Acute Assessment & Plan: pacemaker -Continue home medications Eliquis Code(s): I48.91 - UNSPECIFIED ATRIAL FIBRILLATION (11) Peripheral neuropathy Current Visit: Yes Status: Acute Assessment & Plan: -continue home meds Code(s): G62.9 - POLYNEUROPATHY, UNSPECIFIED
[2023-09-19] MEDS ORDERED: Zofran 4 MG/2 ML VIAL IV PRN (13:53)
[2023-09-19] MEDS ORDERED: APRESOLINE 20 MG/ML INJ IV PRN (13:53)
[2023-09-19] MEDS ORDERED: DUONEB 0.5-3 MG/3 ml Neb IH PRN (15:03)
[2023-09-19] MEDS: HUMALOG SQ PRN ×2 (15:05→17:18)
[2023-09-19] MEDS: TYLENOL 325 MG PO PRN ×2 (15:53→21:44)
[2023-09-19] MEDS ORDERED: NON-FORMULARY ITEM (Omeprazole [Omeprazole] 40 MG Capsule.Dr) PO PRN (16:55)
[2023-09-19] MEDS ORDERED: DESYREL 50 MG PO PRN ×2 (16:55→19:55)
[2023-09-19] MEDS ORDERED: Protonix 40MG Tablet PO PRN (17:06)
[2023-09-19] MEDS: HUMALOG SQ SCH (17:18)
[2023-09-19] MEDS: Lasix 40 MG/4 ML IV SCH (18:09)
[2023-09-19 18:41] LABS: Amphetamine,Urine NEGATIVE (NEGATIVE); Barbiturate,Urine NEGATIVE (NEGATIVE); Benzodiazepine,Urine NEGATIVE (NEGATIVE); Cocaine,Urine NEGATIVE (NEGATIVE); Methadone,Urine NEGATIVE (NEGATIVE); Opiate,Urine NEGATIVE (NEGATIVE); PCP,Urine NEGATIVE (NEGATIVE); THC,Urine NEGATIVE (NEGATIVE)
[2023-09-19] MEDS ORDERED: DUONEB 0.5-3 MG/3 ml Neb IH SCH (19:00)
[2023-09-19] MEDS: REQUIP 2MG TAB PO SCH (19:57)
[2023-09-19] MEDS ORDERED: Ambien 5 MG Tablet PO PRN (20:09)
[2023-09-19] MEDS: Cymbalta 30 MG Capsule PO SCH (21:43)
[2023-09-19] MEDS: DELTASONE 20 MG PO SCH (21:43)
[2023-09-19] MEDS: ELIQUIS 2.5 MG TABLET PO SCH (21:43)
[2023-09-19] MEDS: LAGEVRIO (EUA) PO SCH (21:43)
[2023-09-19] MEDS: ZOCOR 20MG PO SCH (21:44)
[2023-09-19] MEDS ORDERED: NON-FORMULARY ITEM (Duloxetine Hcl [Cymbalta] 60 MG Capsule.Dr) PO SCH (22:00)
[2023-09-19] MEDS ORDERED: LIPITOR 40MG PO SCH (22:00)
[2023-09-19] MEDS ORDERED: PAXLOVID 300-100 MG PACK (EUA) PO SCH (22:00)
[2023-09-19] MEDS: Lantus Insulin SQ SCH (22:15)
[2023-09-20 01:59] LABS: Absolute Neutrophil Ct (ANC) 6.48 x10^3/uL (1.4-6.9); BASOPHIL % 0.4 % (0.0-0.4); Basophil (Absolute #) 0.03 x10^3/uL (0-0.4); Eosinophil % 0.3 % (0.00-5.0); Eosinophil (Absolute #) 0.02 x10^3/uL (0-0.5); Hematocrit 36.1 % (42-50); Hemoglobin 11.7 g/dL (12.5-18.0); IMMATURE GRAN # 0.03 x10^3u/L (0.00-0.03); IMMATURE GRAN % 0.4 % (0.00-0.4); Lymphocyte (Absolute #) 0.55 x10^3/uL (1.0-4.6); Lymphocytes % 7.5 % (24.0-44.0); Mean Cell Volume 86.8 fL (78-100); Mean Corpuscular Hemoglobin 28.1 pg (26-32); Mean Corpuscular Hgb Concent. 32.4 g/dL (32-36); Mean Platelet Volume 10.8 fL (7.5-11.0); Monocyte (Absolute #) 0.24 x10^3/uL (0.0-1.3); Monocytes % 3.3 % (0.0-12.0); Neutrophil % 88.1 % (36.0-66.0); Platelet Count 181 x10^3/uL (150-450); Red Blood Count 4.16 x10^6/uL (4.1-5.6); Red Cell Distribution Width 14.2 % (11.5-14.0); White Blood Count 7.4 x10^3/uL (4.0-10.5)
[2023-09-20 02:19] LABS: ALBUMIN 3.2 g/dL (3.5-5.0); ANION GAP 13.1 MEQ/L (5-15); BILIRUBIN,TOTAL 0.9 mg/dL (0.2-1.3); Calcium 8.4 mg/dL (8.4-10.2); Creatinine 1 0.95 mg/dL (0.66-1.25); EST GLOMERULAR FILTRATION RATE 88.8 ML/MIN; MAGNESIUM 1.9 mg/dL (1.6-2.3); Potassium 4.5 mmol/L (3.5-5.1); Total Protein 6.2 g/dL (6.3-8.2)
--- NOTE | 2023-09-20 05:34 | PCM.NOTE ---
Date and Time: 09/20/23 0532 Subjective Assessment: Mr. Gomez is a 63 year old male with a pmhx of peripheral neuropathy, arrhythmia, CHF, HTN, CHF, COPD,KASHMIR, DMII, OA, anxiety, AFIB with pacemaker, and restless legs who presented to ED 09/19/23 with complaints of shortness of breath, cough, and diarrhea for the past three days. No recent sick contacts. No fever. Patient reports greater than 3 episodes of diarrhea daily for 3 day, none since last night. Cough with clear sputum. Patient admitted with dyspnea and severe cough. He is positive for COVID-19 but oxygen sats so far are above 92%. He has history of COPD and CHF. He is not wheezing. Cxray does not show any definite infiltrates. However, since he has cough productive of purulent sputum, will start some Zithromax. He does not demonstrate CHF on Cxray but BNP is elevated. Will give IV Lasix. Will start low dose steroids for COPD with possible exacerbation. Low level of concern for PE. He does have some mild chest pain but he is on Eliquis for atrial fib. His CHF is systolic with EF of 33%. 09/20: Patient feeling better this morning. Less short of breath, cough with clear sputum. Lung sounds clear. BLE edema improved, right extremity with 2+ pitting, Left trace. No longer with chest pain. Trops downtrending. Sodium is low secondary to hyperglycemia. Changes to insulin regimen made. Patient was not given his long acting insulin last evening, blood glucose level at 414 this morning. - Review of Systems Constitutional: No Symptoms Eyes: No Symptoms Ears, Nose, & Throat: No Symptoms Respiratory: Cough, Short Of Breath Cardiac: No Symptoms Abdominal/Gastrointestinal: No Symptoms Genitourinary Symptoms: No Symptoms Musculoskeletal: No Symptoms Skin: No Symptoms Neurological: No Symptoms Psychological: No Symptoms Endocrine: No Symptoms Hematologic/Lymphatic: No Symptoms Immunological/Allergic: No Symptoms Objective Exam General Appearance: no apparent distress Neurologic Exam: alert, oriented x 3, cooperative Skin Exam: normal color Eye Exam: PERRL Ears, Nose, Throat Exam: normal ENT inspection Neck Exam: normal inspection Respiratory Exam: normal breath sounds, lungs clear Cardiovascular Exam: regular rate/rhythm, normal heart sounds Gastrointestinal/Abdomen Exam: soft, normal bowel sounds Extremity Exam: amputations (1st and 2nd digits of right hand left thumb with blister), other Back Exam: normal inspection Male Genitalia Exam: deferred Rectal Exam: deferred OBJECTIVE DATA Vital Signs: Vital Signs - 24 hr Temp Pulse Resp BP BP Pulse Ox 09/20/23 04:00 73 18 158/84 09/20/23 02:00 155/93 09/20/23 01:30 75 163/92 09/20/23 00:00 87 16 140/77 95 09/19/23 22:00 74 16 96 09/19/23 20:00 97.9 F 75 19 136/80 99 09/19/23 19:06 89 18 98 09/19/23 18:00 97.2 F 87 16 142/75 97 09/19/23 16:00 76 17 09/19/23 15:00 76 18 97 09/19/23 14:18 96 09/19/23 14:06 97.6 F 85 16 163/93 96 09/19/23 12:00 75 20 159/99 98 09/19/23 11:30 77 16 167/100 95 09/19/23 11:00 76 25 H 168/98 98 09/19/23 10:30 84 13 161/102 96 09/19/23 10:00 98.6 F 77 17 156/104 156/104 98 Pain Assessment - Last Documented Pain Intensity 4 Pain Scale Used [facility] Intake and Output: Intake & Output 09/17/23 09/18/23 09/19/23 09/20/23 11:59 11:59 11:59 11:59 Intake Total 800 Output Total 900 Balance -100 Weight 83.915 kg 91.9 kg Lab Results: Lab Results-Last 24 Hours 09/19/23 09/19/23 09/19/23 Range/Units 10:14 10:15 10:15 WBC 7.0 (4.0-10.5) x10^3/uL RBC 4.27 (4.1-5.6) x10^6/uL Hgb 11.9 L (12.5-18.0) g/dL Hct 36.9 L (42-50) % MCV 86.4 (78-100) fL MCH 27.9 (26-32) pg MCHC 32.2 (32-36) g/dL RDW 14.1 H (11.5-14.0) % Plt Count 174 (150-450) x10^3/uL MPV 10.7 (7.5-11.0) fL Gran % 80.8 H (36.0-66.0) % Immature Gran % (Auto) 0.3 (0.00-0.4) % Nucleat RBC Rel Count 0.0 (0.00-0.1) % Eos # (Auto) 0.05 (0-0.5) x10^3/uL Immature Gran # (Auto) 0.02 (0.00-0.03) x10^3u/L Absolute Lymphs (auto) 0.80 L (1.0-4.6) x10^3/uL Absolute Monos (auto) 0.42 (0.0-1.3) x10^3/uL Absolute Nucleated RBC 0.00 (0.00-0.01) x10^3u/L Lymphocytes % 11.5 L (24.0-44.0) % Monocytes % 6.0 (0.0-12.0) % Eosinophils % 0.7 (0.00-5.0) % Basophils % 0.7 (0.0-0.4) % Absolute Granulocytes 5.63 (1.4-6.9) x10^3/uL Basophils # 0.05 (0-0.4) x10^3/uL PT 10.4 (9.4-12.5) SECONDS INR 0.95 (0.8-3.0) APTT 27.3 (25.1-36.5) SECONDS D-Dimer (0.0-0.50) mg/L Sodium 126 L (137-145) mmol/L Potassium 4.3 (3.5-5.1) mmol/L Chloride 94 L (98-107) mmol/L Carbon Dioxide 25 (22-30) mmol/L Anion Gap 11.7 (5-15) MEQ/L BUN 19 (9-20) mg/dL Creatinine 0.96 (0.66-1.25) mg/dL Estimated GFR 87.7 ML/MIN Glucose 486 H (74-106) mg/dL POC Glucometer (74 to 106) mg/dL Calcium 8.4 (8.4-10.2) mg/dL Magnesium (1.6-2.3) mg/dL Total Bilirubin 0.80 (0.2-1.3) mg/dL AST 27 (17-59) U/L ALT 28 (0-50) U/L Alkaline Phosphatase 169 H (38-126) U/L Troponin I (0.000-0.034) ng/mL NT-Pro-B Natriuret Pep 7490 (<300) pg/mL Serum Total Protein 6.8 (6.3-8.2) g/dL Albumin 3.5 (3.5-5.0) g/dL Urine Opiates Level (NEGATIVE) Ur Methadone (NEGATIVE) Urine Barbiturates (NEGATIVE) Ur Phencyclidine (PCP) (NEGATIVE) Urine Amphetamine (NEGATIVE) U Benzodiazepine Level (NEGATIVE) Urine Cocaine (NEGATIVE) Urine Marijuana (THC) (NEGATIVE) Influenza Type A Ag (NEGATIVE) Influenza Type B Ag (NEGATIVE) RSV (PCR) (NEGATIVE) SARS-CoV-2 (PCR) (NEGATIVE) 09/19/23 09/19/23 09/19/23 Range/Units 10:15 10:40 13:21 WBC (4.0-10.5) x10^3/uL RBC (4.1-5.6) x10^6/uL Hgb (12.5-18.0) g/dL Hct (42-50) % MCV (78-100) fL MCH (26-32) pg MCHC (32-36) g/dL RDW (11.5-14.0) % Plt Count (150-450) x10^3/uL MPV (7.5-11.0) fL Gran % (36.0-66.0) % Immature Gran % (Auto) (0.00-0.4) % Nucleat RBC Rel Count (0.00-0.1) % Eos # (Auto) (0-0.5) x10^3/uL Immature Gran # (Auto) (0.00-0.03) x10^3u/L Absolute Lymphs (auto) (1.0-4.6) x10^3/uL Absolute Monos (auto) (0.0-1.3) x10^3/uL Absolute Nucleated RBC (0.00-0.01) x10^3u/L Lymphocytes % (24.0-44.0) % Monocytes % (0.0-12.0) % Eosinophils % (0.00-5.0) % Basophils % (0.0-0.4) % Absolute Granulocytes (1.4-6.9) x10^3/uL Basophils # (0-0.4) x10^3/uL PT (9.4-12.5) SECONDS INR (0.8-3.0) APTT (25.1-36.5) SECONDS D-Dimer (0.0-0.50) mg/L Sodium (137-145) mmol/L Potassium (3.5-5.1) mmol/L Chloride (98-107) mmol/L Carbon Dioxide (22-30) mmol/L Anion Gap (5-15) MEQ/L BUN (9-20) mg/dL Creatinine (0.66-1.25) mg/dL Estimated GFR ML/MIN Glucose (74-106) mg/dL POC Glucometer 439 H (74 to 106) mg/dL Calcium (8.4-10.2) mg/dL Magnesium (1.6-2.3) mg/dL Total Bilirubin (0.2-1.3) mg/dL AST (17-59) U/L ALT (0-50) U/L Alkaline Phosphatase (38-126) U/L Troponin I 0.171 H* (0.000-0.034) ng/mL NT-Pro-B Natriuret Pep (<300) pg/mL Serum Total Protein (6.3-8.2) g/dL Albumin (3.5-5.0) g/dL Urine Opiates Level (NEGATIVE) Ur Methadone (NEGATIVE) Urine Barbiturates (NEGATIVE) Ur Phencyclidine (PCP) (NEGATIVE) Urine Amphetamine (NEGATIVE) U Benzodiazepine Level (NEGATIVE) Urine Cocaine (NEGATIVE) Urine Marijuana (THC) (NEGATIVE) Influenza Type A Ag NEGATIVE (NEGATIVE) Influenza Type B Ag NEGATIVE (NEGATIVE) RSV (PCR) NEGATIVE (NEGATIVE) SARS-CoV-2 (PCR) POSITIVE A (NEGATIVE) 09/19/23 09/19/23 09/19/23 Range/Units 14:15 14:27 16:40 WBC (4.0-10.5) x10^3/uL RBC (4.1-5.6) x10^6/uL Hgb (12.5-18.0) g/dL Hct (42-50) % MCV (78-100) fL MCH (26-32) pg MCHC (32-36) g/dL RDW (11.5-14.0) % Plt Count (150-450) x10^3/uL MPV (7.5-11.0) fL Gran % (36.0-66.0) % Immature Gran % (Auto) (0.00-0.4) % Nucleat RBC Rel Count (0.00-0.1) % Eos # (Auto) (0-0.5) x10^3/uL Immature Gran # (Auto) (0.00-0.03) x10^3u/L Absolute Lymphs (auto) (1.0-4.6) x10^3/uL Absolute Monos (auto) (0.0-1.3) x10^3/uL Absolute Nucleated RBC (0.00-0.01) x10^3u/L Lymphocytes % (24.0-44.0) % Monocytes % (0.0-12.0) % Eosinophils % (0.00-5.0) % Basophils % (0.0-0.4) % Absolute Granulocytes (1.4-6.9) x10^3/uL Basophils # (0-0.4) x10^3/uL PT (9.4-12.5) SECONDS INR (0.8-3.0) APTT (25.1-36.5) SECONDS D-Dimer 1.06 H* (0.0-0.50) mg/L Sodium (137-145) mmol/L Potassium (3.5-5.1) mmol/L Chloride (98-107) mmol/L Carbon Dioxide (22-30) mmol/L Anion Gap (5-15) MEQ/L BUN (9-20) mg/dL Creatinine (0.66-1.25) mg/dL Estimated GFR ML/MIN Glucose (74-106) mg/dL POC Glucometer (74 to 106) mg/dL Calcium (8.4-10.2) mg/dL Magnesium 2.0 (1.6-2.3) mg/dL Total Bilirubin (0.2-1.3) mg/dL AST (17-59) U/L ALT (0-50) U/L Alkaline Phosphatase (38-126) U/L Troponin I 0.159 H* (0.000-0.034) ng/mL NT-Pro-B Natriuret Pep (<300) pg/mL Serum Total Protein (6.3-8.2) g/dL Albumin (3.5-5.0) g/dL Urine Opiates Level (NEGATIVE) Ur Methadone (NEGATIVE) Urine Barbiturates (NEGATIVE) Ur Phencyclidine (PCP) (NEGATIVE) Urine Amphetamine (NEGATIVE) U Benzodiazepine Level (NEGATIVE) Urine Cocaine (NEGATIVE) Urine Marijuana (THC) (NEGATIVE) Influenza Type A Ag (NEGATIVE) Influenza Type B Ag (NEGATIVE) RSV (PCR) (NEGATIVE) SARS-CoV-2 (PCR) (NEGATIVE) 09/19/23 09/19/23 09/19/23 Range/Units 17:01 18:20 18:33 WBC (4.0-10.5) x10^3/uL RBC (4.1-5.6) x10^6/uL Hgb (12.5-18.0) g/dL Hct (42-50) % MCV (78-100) fL MCH (26-32) pg MCHC (32-36) g/dL RDW (11.5-14.0) % Plt Count (150-450) x10^3/uL MPV (7.5-11.0) fL Gran % (36.0-66.0) % Immature Gran % (Auto) (0.00-0.4) % Nucleat RBC Rel Count (0.00-0.1) % Eos # (Auto) (0-0.5) x10^3/uL Immature Gran # (Auto) (0.00-0.03) x10^3u/L Absolute Lymphs (auto) (1.0-4.6) x10^3/uL Absolute Monos (auto) (0.0-1.3) x10^3/uL Absolute Nucleated RBC (0.00-0.01) x10^3u/L Lymphocytes % (24.0-44.0) % Monocytes % (0.0-12.0) % Eosinophils % (0.00-5.0) % Basophils % (0.0-0.4) % Absolute Granulocytes (1.4-6.9) x10^3/uL Basophils # (0-0.4) x10^3/uL PT (9.4-12.5) SECONDS INR (0.8-3.0) APTT (25.1-36.5) SECONDS D-Dimer (0.0-0.50) mg/L Sodium (137-145) mmol/L Potassium (3.5-5.1) mmol/L Chloride (98-107) mmol/L Carbon Dioxide (22-30) mmol/L Anion Gap (5-15) MEQ/L BUN (9-20) mg/dL Creatinine (0.66-1.25) mg/dL Estimated GFR ML/MIN Glucose (74-106) mg/dL POC Glucometer 367 H (74 to 106) mg/dL Calcium (8.4-10.2) mg/dL Magnesium (1.6-2.3) mg/dL Total Bilirubin (0.2-1.3) mg/dL AST (17-59) U/L ALT (0-50) U/L Alkaline Phosphatase (38-126) U/L Troponin I 0.173 H* (0.000-0.034) ng/mL NT-Pro-B Natriuret Pep (<300) pg/mL Serum Total Protein (6.3-8.2) g/dL Albumin (3.5-5.0) g/dL Urine Opiates Level NEGATIVE (NEGATIVE) Ur Methadone NEGATIVE (NEGATIVE) Urine Barbiturates NEGATIVE (NEGATIVE) Ur Phencyclidine (PCP) NEGATIVE (NEGATIVE) Urine Amphetamine NEGATIVE (NEGATIVE) U Benzodiazepine Level NEGATIVE (NEGATIVE) Urine Cocaine NEGATIVE (NEGATIVE) Urine Marijuana (THC) NEGATIVE (NEGATIVE) Influenza Type A Ag (NEGATIVE) Influenza Type B Ag (NEGATIVE) RSV (PCR) (NEGATIVE) SARS-CoV-2 (PCR) (NEGATIVE) 09/19/23 09/20/23 09/20/23 Range/Units 21:35 01:26 01:57 WBC 7.4 (4.0-10.5) x10^3/uL RBC 4.16 (4.1-5.6) x10^6/uL Hgb 11.7 L (12.5-18.0) g/dL Hct 36.1 L (42-50) % MCV 86.8 (78-100) fL MCH 28.1 (26-32) pg MCHC 32.4 (32-36) g/dL RDW 14.2 H (11.5-14.0) % Plt Count 181 (150-450) x10^3/uL MPV 10.8 (7.5-11.0) fL Gran % 88.1 H (36.0-66.0) % Immature Gran % (Auto) 0.4 (0.00-0.4) % Nucleat RBC Rel Count 0.0 (0.00-0.1) % Eos # (Auto) 0.02 (0-0.5) x10^3/uL Immature Gran # (Auto) 0.03 (0.00-0.03) x10^3u/L Absolute Lymphs (auto) 0.55 L (1.0-4.6) x10^3/uL Absolute Monos (auto) 0.24 (0.0-1.3) x10^3/uL Absolute Nucleated RBC 0.00 (0.00-0.01) x10^3u/L Lymphocytes % 7.5 L (24.0-44.0) % Monocytes % 3.3 (0.0-12.0) % Eosinophils % 0.3 (0.00-5.0) % Basophils % 0.4 (0.0-0.4) % Absolute Granulocytes 6.48 (1.4-6.9) x10^3/uL Basophils # 0.03 (0-0.4) x10^3/uL PT (9.4-12.5) SECONDS INR (0.8-3.0) APTT (25.1-36.5) SECONDS D-Dimer (0.0-0.50) mg/L Sodium (137-145) mmol/L Potassium (3.5-5.1) mmol/L Chloride (98-107) mmol/L Carbon Dioxide (22-30) mmol/L Anion Gap (5-15) MEQ/L BUN (9-20) mg/dL Creatinine (0.66-1.25) mg/dL Estimated GFR ML/MIN Glucose (74-106) mg/dL POC Glucometer 84 298 H (74 to 106) mg/dL Calcium (8.4-10.2) mg/dL Magnesium (1.6-2.3) mg/dL Total Bilirubin (0.2-1.3) mg/dL AST (17-59) U/L ALT (0-50) U/L Alkaline Phosphatase (38-126) U/L Troponin I (0.000-0.034) ng/mL NT-Pro-B Natriuret Pep (<300) pg/mL Serum Total Protein (6.3-8.2) g/dL Albumin (3.5-5.0) g/dL Urine Opiates Level (NEGATIVE) Ur Methadone (NEGATIVE) Urine Barbiturates (NEGATIVE) Ur Phencyclidine (PCP) (NEGATIVE) Urine Amphetamine (NEGATIVE) U Benzodiazepine Level (NEGATIVE) Urine Cocaine (NEGATIVE) Urine Marijuana (THC) (NEGATIVE) Influenza Type A Ag (NEGATIVE) Influenza Type B Ag (NEGATIVE) RSV (PCR) (NEGATIVE) SARS-CoV-2 (PCR) (NEGATIVE) 09/20/23 09/20/23 Range/Units 01:57 01:57 WBC (4.0-10.5) x10^3/uL RBC (4.1-5.6) x10^6/uL Hgb (12.5-18.0) g/dL Hct (42-50) % MCV (78-100) fL MCH (26-32) pg MCHC (32-36) g/dL RDW (11.5-14.0) % Plt Count (150-450) x10^3/uL MPV (7.5-11.0) fL Gran % (36.0-66.0) % Immature Gran % (Auto) (0.00-0.4) % Nucleat RBC Rel Count (0.00-0.1) % Eos # (Auto) (0-0.5) x10^3/uL Immature Gran # (Auto) (0.00-0.03) x10^3u/L Absolute Lymphs (auto) (1.0-4.6) x10^3/uL Absolute Monos (auto) (0.0-1.3) x10^3/uL Absolute Nucleated RBC (0.00-0.01) x10^3u/L Lymphocytes % (24.0-44.0) % Monocytes % (0.0-12.0) % Eosinophils % (0.00-5.0) % Basophils % (0.0-0.4) % Absolute Granulocytes (1.4-6.9) x10^3/uL Basophils # (0-0.4) x10^3/uL PT (9.4-12.5) SECONDS INR (0.8-3.0) APTT (25.1-36.5) SECONDS D-Dimer (0.0-0.50) mg/L Sodium 126 L (137-145) mmol/L Potassium 4.5 (3.5-5.1) mmol/L Chloride 95 L (98-107) mmol/L Carbon Dioxide 22 (22-30) mmol/L Anion Gap 13.1 (5-15) MEQ/L BUN 27 H (9-20) mg/dL Creatinine 0.95 (0.66-1.25) mg/dL Estimated GFR 88.8 ML/MIN Glucose 316 H (74-106) mg/dL POC Glucometer (74 to 106) mg/dL Calcium 8.4 (8.4-10.2) mg/dL Magnesium 1.9 (1.6-2.3) mg/dL Total Bilirubin 0.90 (0.2-1.3) mg/dL AST 28 (17-59) U/L ALT 25 (0-50) U/L Alkaline Phosphatase 120 (38-126) U/L Troponin I 0.162 H* (0.000-0.034) ng/mL NT-Pro-B Natriuret Pep (<300) pg/mL Serum Total Protein 6.2 L (6.3-8.2) g/dL Albumin 3.2 L (3.5-5.0) g/dL Urine Opiates Level (NEGATIVE) Ur Methadone (NEGATIVE) Urine Barbiturates (NEGATIVE) Ur Phencyclidine (PCP) (NEGATIVE) Urine Amphetamine (NEGATIVE) U Benzodiazepine Level (NEGATIVE) Urine Cocaine (NEGATIVE) Urine Marijuana (THC) (NEGATIVE) Influenza Type A Ag (NEGATIVE) Influenza Type B Ag (NEGATIVE) RSV (PCR) (NEGATIVE) SARS-CoV-2 (PCR) (NEGATIVE) Radiology Exams: Radiology Procedures Category Date Time Status CHEST 1 VIEW (PORTABLE) Stat Exams 09/19/23 10:15 Completed Assessment/Plan (1) COVID Current Visit: Yes Status: Acute Assessment & Plan: -No hypoxia, patient at baseline RA - no indication for dexamethasone -Molnupiravir -CXR with no cardiopulmonary processes Code(s): U07.1 - COVID-19 (2) Acute exacerbation of CHF (congestive heart failure) Current Visit: Yes Status: Acute Assessment & Plan: HFREF with EF at 33% -Supplemental oxygen for goal spo2 > 92% -Dry weight -Monitor daily weights/I&O -IV lasix -Echo performed 07/29/23: EF 33% IMPRESSION: 1) MODERATE DECREASE IN LEFT VENTRICULAR SYSTOLIC FUNCTION. 2) BORDERLINE CONCENTRIC LEFT VENTRICULAR HYPERTROPHY. 4) HYPOKINESIS OF THE INTERVENTRICULAR SEPTUM. 5) RIGHT VENTRICULAR PACING ELECTRODE. 6) MODERATE LEFT ATRIAL DILATATION. 7) MILD MITRAL REGURGITATION. 8) MILD TRICUSPID REGURGITATION. 9) NORMAL RIGHT VENTRICULAR SYSTOLIC PRESSURE -Optimize electrolytes for goal K>4, MG >2 -Cards consult -Trops elevated, most likely secondary to exacerbation of CHF -BNP at 7490 -Repeat trops/ekg in the morning -lipid in the a.m. 09/20/23: -Trops downtrending, Cards consult with recs to increase lasix to bid, follow up in one week s/p d/c Code(s): I50.9 - HEART FAILURE, UNSPECIFIED (3) Elevated troponin Current Visit: Yes Status: Acute Assessment & Plan: -Initial trop elevated, will continue to monitor, most likely secondary to chf exacerbation -EKG which shows underlying rhythm of atrial fibrillation rate of 90. Intraventricular conduction delay. -Repeat EKG/Trops in a.m. -Cards consult Code(s): R79.89 - OTHER SPECIFIED ABNORMAL FINDINGS OF BLOOD CHEMISTRY (4) HTN (hypertension) Current Visit: Yes Status: Acute Assessment & Plan: -Continue home meds, add hydralazine prn for SBP > 180 DBP >100 Code(s): I10 - ESSENTIAL (PRIMARY) HYPERTENSION (5) Hyponatremia Current Visit: Yes Status: Acute Assessment & Plan: -In the setting of hyperglycemia, should correct as blood glucose levels stabilize -IVF Code(s): E87.1 - HYPO-OSMOLALITY AND HYPONATREMIA (6) Anxiety Current Visit: No Status: Acute Assessment & Plan: -UDS -Trazadone for sleep 09/20: -UDS negative Code(s): F41.9 - ANXIETY DISORDER, UNSPECIFIED (7) Hyperlipidemia Current Visit: No Status: Acute Assessment & Plan: -continue statin Code(s): E78.5 - HYPERLIPIDEMIA, UNSPECIFIED (8) Skin abnormalities Current Visit: No Status: Acute Assessment & Plan: -Blister to left thumb -Advised derm follow up Code(s): L98.9 - DISORDER OF THE SKIN AND SUBCUTANEOUS TISSUE, UNSPECIFIED (9) Uncontrolled diabetes mellitus Current Visit: No Status: Acute Qualifiers: Diabetes mellitus type: type 2 Glycemic state: with hyperglycemia Qualified Code(s): E11.65 - Type 2 diabetes mellitus with hyperglycemia Assessment & Plan: -glucose level at 486 -Recent a1c at 13.56 07/28/23 -Meal time/glargine/SSI -ADA diet -Discussed importance of good glycemic control Code(s): [id number] - (10) Afib Current Visit: Yes Status: Acute Assessment & Plan: pacemaker -Continue home medications Eliquis Code(s): I48.91 - UNSPECIFIED ATRIAL FIBRILLATION (11) Peripheral neuropathy Current Visit: Yes Status: Acute Assessment & Plan: -continue home meds Code(s): U07.1 - COVID-19 (2) Acute exacerbation of CHF (congestive heart failure) Current Visit: Yes Status: Acute Code(s): I50.9 - HEART FAILURE, UNSPECIFIED (3) Elevated troponin Current Visit: Yes Status: Acute Code(s): R79.89 - OTHER SPECIFIED ABNORMAL FINDINGS OF BLOOD CHEMISTRY (4) HTN (hypertension) Current Visit: Yes Status: Acute Code(s): I10 - ESSENTIAL (PRIMARY) HYPERTENSION (5) Hyponatremia Current Visit: Yes Status: Acute Code(s): E87.1 - HYPO-OSMOLALITY AND HYPONATREMIA (6) Anxiety Current Visit: No Status: Acute Code(s): F41.9 - ANXIETY DISORDER, UNSPECIFIED (7) Hyperlipidemia Current Visit: No Status: Acute Code(s): E78.5 - HYPERLIPIDEMIA, UNSPECIFIED (8) Skin abnormalities Current Visit: No Status: Acute Code(s): L98.9 - DISORDER OF THE SKIN AND SUBCUTANEOUS TISSUE, UNSPECIFIED (9) Uncontrolled diabetes mellitus Current Visit: No Status: Acute Qualifiers: Diabetes mellitus type: type 2 Glycemic state: with hyperglycemia Qualified Code(s): E11.65 - Type 2 diabetes mellitus with hyperglycemia Code(s): [id number] - (10) Afib Current Visit: Yes Status: Acute Code(s): I48.91 - UNSPECIFIED ATRIAL FIBRILLATION (11) Peripheral neuropathy Current Visit: Yes Status: Acute Code(s): G62.9 - POLYNEUROPATHY, UNSPECIFIED
[2023-09-20] MEDS: Lasix 40 MG/4 ML IV SCH ×2 (06:02→17:26)
[2023-09-20] MEDS: HUMALOG SQ SCH ×3 (08:25→17:26)
[2023-09-20] MEDS: Lantus Insulin SQ SCH ×2 (08:25→21:52)
[2023-09-20] MEDS: Zithromax 500 MG/ 250 ML NaCl Premix 500 MG/250 ML IVPB IV SCH (09:57)
[2023-09-20] MEDS: Zestril 10 MG PO SCH (09:58)
[2023-09-20] MEDS: LAGEVRIO (EUA) PO SCH ×2 (09:58→21:49)
[2023-09-20] MEDS: Aldactone 25 MG PO SCH (09:58)
[2023-09-20] MEDS: Protonix 40MG Tablet PO SCH (09:59)
[2023-09-20] MEDS: DELTASONE 20 MG PO SCH ×2 (09:59→21:52)
[2023-09-20] MEDS: Klor Con PO SCH (09:59)
[2023-09-20] MEDS: ELIQUIS 2.5 MG TABLET PO SCH ×2 (09:59→21:51)
[2023-09-20] MEDS: Cymbalta 30 MG Capsule PO SCH ×2 (09:59→21:52)
[2023-09-20] MEDS: JARDIANCE PO SCH (10:00)
[2023-09-20] MEDS ORDERED: Lasix 40 MG/4 ML IV SCH (10:00)
[2023-09-20] MEDS: HUMALOG SQ PRN ×3 (12:22→21:53)
[2023-09-20] MEDS ORDERED: REQUIP 2MG TAB PO SCH (14:00)
[2023-09-20] MEDS: REQUIP 2MG TAB PO SCH (21:51)
[2023-09-20] MEDS: ZOCOR 20MG PO SCH (21:51)
--- NOTE | 2023-09-21 05:10 | PCM.DS ---
Discharge Summary Date of Admission: 09/19/23 12:45 Date of Discharge: 09/21/23 Admitting Physician: JOSEPH RACHEL MD Consults: Consults on Case 09/19/23 13:58 Consult Cardiology ROUTINE Primary Care Provider: ROGELIO CAVAZOS DO Allergies Allergies diphenhydramine [From Benadryl] Allergy (Verified 09/19/23 10:16) Difficulty Breathing Iodinated Contrast Media Allergy (Verified 09/19/23 10:16) Difficulty Breathing Hospital Summary - Hospital Course Hospital Course: Mr. Gomez is a 63 year old male with a pmhx of peripheral neuropathy, arrhythmia, CHF, HTN, CHF, COPD,KASHMIR, DMII, OA, anxiety, AFIB with pacemaker, and restless legs who presented to ED 09/19/23 with complaints of shortness of breath, cough, and diarrhea for the past three days. No recent sick contacts. No fever. Patient reports greater than 3 episodes of diarrhea daily for 3 day, none since last night. Cough with clear sputum. Patient admitted with dyspnea and severe cough. He is positive for COVID-19 but oxygen sats so far are above 92%. He has history of COPD and CHF. He is not wheezing. Cxray does not show any definite infiltrates. However, since he has cough productive of purulent sputum, will start some Zithromax. He does not demonstrate CHF on Cxray but BNP is elevated. Will give IV Lasix. Will start low dose steroids for COPD with possible exacerbation. Low level of concern for PE. He does have some mild chest pain but he is on Eliquis for atrial fib. His CHF is systolic with EF of 33%. Dyspnea and cough have improved. At baseline oxygen RA. No longer with chest pain. Trops downtrending. Cardiology consulted, follow up in one week. Blood glucose levels stable. Advised patient to add sliding scale to insulin regimen. Diagnosis: Covid/CHF New Medications:Molnupiravir, finish 09/24/23 Follow Up: PCP/CARDs Latest Assessment & Plan (1) COVID Current Visit: Yes Status: Acute Assessment & Plan: -No hypoxia, patient at baseline RA - no indication for dexamethasone -Molnupiravir -CXR with no cardiopulmonary processes Code(s): U07.1 - COVID-19 (2) Acute exacerbation of CHF (congestive heart failure) Current Visit: Yes Status: Acute Assessment & Plan: HFREF with EF at 33% -Supplemental oxygen for goal spo2 > 92% -Dry weight -Monitor daily weights/I&O -IV lasix -Echo performed 07/29/23: EF 33% IMPRESSION: 1) MODERATE DECREASE IN LEFT VENTRICULAR SYSTOLIC FUNCTION. 2) BORDERLINE CONCENTRIC LEFT VENTRICULAR HYPERTROPHY. 4) HYPOKINESIS OF THE INTERVENTRICULAR SEPTUM. 5) RIGHT VENTRICULAR PACING ELECTRODE. 6) MODERATE LEFT ATRIAL DILATATION. 7) MILD MITRAL REGURGITATION. 8) MILD TRICUSPID REGURGITATION. 9) NORMAL RIGHT VENTRICULAR SYSTOLIC PRESSURE -Optimize electrolytes for goal K>4, MG >2 -Cards consult -Trops elevated, most likely secondary to exacerbation of CHF -BNP at 7490 -Repeat trops/ekg in the morning -lipid in the a.m. 09/20/23: -Trops downtrending, Cards consult with recs to increase lasix to bid, follow up in one week s/p d/c Code(s): I50.9 - HEART FAILURE, UNSPECIFIED (3) Elevated troponin Current Visit: Yes Status: Acute Assessment & Plan: -Initial trop elevated, will continue to monitor, most likely secondary to chf exacerbation -EKG which shows underlying rhythm of atrial fibrillation rate of 90. Intraventricular conduction delay. -Repeat EKG/Trops in a.m. -Cards consult Code(s): R79.89 - OTHER SPECIFIED ABNORMAL FINDINGS OF BLOOD CHEMISTRY (4) HTN (hypertension) Current Visit: Yes Status: Acute Assessment & Plan: -Continue home meds, add hydralazine prn for SBP > 180 DBP >100 Code(s): I10 - ESSENTIAL (PRIMARY) HYPERTENSION (5) Hyponatremia Current Visit: Yes Status: Acute Assessment & Plan: -In the setting of hyperglycemia, should correct as blood glucose levels stabilize -IVF Code(s): E87.1 - HYPO-OSMOLALITY AND HYPONATREMIA (6) Anxiety Current Visit: No Status: Acute Assessment & Plan: -UDS -Trazadone for sleep 09/20: -UDS negative Code(s): F41.9 - ANXIETY DISORDER, UNSPECIFIED (7) Hyperlipidemia Current Visit: No Status: Acute Assessment & Plan: -continue statin Code(s): E78.5 - HYPERLIPIDEMIA, UNSPECIFIED (8) Skin abnormalities Current Visit: No Status: Acute Assessment & Plan: -Blister to left thumb -Advised derm follow up Code(s): L98.9 - DISORDER OF THE SKIN AND SUBCUTANEOUS TISSUE, UNSPECIFIED (9) Uncontrolled diabetes mellitus Current Visit: No Status: Acute Qualifiers: Diabetes mellitus type: type 2 Glycemic state: with hyperglycemia Qualified Code(s): E11.65 - Type 2 diabetes mellitus with hyperglycemia Assessment & Plan: -glucose level at 486 -Recent a1c at 13.56 07/28/23 -Meal time/glargine/SSI -ADA diet -Discussed importance of good glycemic control Code(s): RKL8343 - (10) Afib Current Visit: Yes Status: Acute Assessment & Plan: pacemaker -Continue home medications Eliquis Code(s): I48.91 - UNSPECIFIED ATRIAL FIBRILLATION (11) Peripheral neuropathy Current Visit: Yes Status: Acute Assessment & Plan: -continue home meds Code(s): U07.1 - COVID I spent 35 minutes [id number] with the patient on the day of discharge performing discharge exam, discussing hospital stay and discharge instructions with patient and caregivers, preparation of discharge records, prescriptions & referral forms and addressing any questions/concerns the patient had as documented above. - Vitals & Intake/Output Vital Signs: Vital Signs Temperature 97.1 F 09/21/23 04:00 Pulse Rate 86 09/21/23 04:00 Respiratory Rate 18 09/21/23 04:00 Blood Pressure 139/81 09/21/23 04:00 O2 Sat by Pulse Oximetry 97 09/21/23 04:00 Intake & Output: Intake & Output 09/18/23 09/19/23 09/20/23 09/21/23 11:59 11:59 11:59 11:59 Intake Total 1380 1060 Output Total 2450 2200 Balance -1070 -1140 Weight 83.915 kg 91.9 kg - Lab Result Diagrams: 09/21/23 05:32 09/21/23 05:32 Lab Results-Last 24 Hrs: Lab Results-Last 24 Hours 09/20/23 09/20/23 09/20/23 Range/Units 07:44 11:43 15:41 POC Glucometer 414 H 419 H 296 H (74 to 106) mg/dL 09/20/23 Range/Units 21:01 POC Glucometer 228 H (74 to 106) mg/dL Micro Results-Entire Visit: Accuchecks Date 09/20/23 Time 07:51 - Radiology Exams Ordered Rad Exams-Entire Visit: Radiology Procedures Category Date Time Status CHEST 1 VIEW (PORTABLE) Stat Exams 09/19/23 10:15 Completed - Procedures and Test Procedures and Tests throughout Hospitalization: Therapy Orders & Screens 09/19/23 13:53 Respiratory Therapy Consult ONCE Comment: Reason For Exam: Diagnosis: CHF, dyspnea, COVID 09/19/23 19:06 Respiratory Therapy Assessment DAILY Comment: Diagnosis: covid/ chf/ dyspnea 09/20/23 02:22 EKG STAT Comment: chest pain Diagnosis: covid/ chf/ dyspnea Discharge Exam General Appearance: no apparent distress Neurologic Exam: alert, oriented x 3, cooperative Eye Exam: PERRL Ears, Nose, Throat Exam: normal ENT inspection Neck Exam: normal inspection Respiratory Exam: normal breath sounds, lungs clear Cardiovascular Exam: regular rate/rhythm, normal heart sounds Gastrointestinal/Abdomen Exam: soft, normal bowel sounds Male Genitalia Exam: deferred Rectal Exam: deferred Back Exam: normal inspection Extremity Exam: swelling (BLE edema) Skin Exam: normal color Final Diagnosis/Problem List - Final Discharge Diagnosis/Problem (1) COVID Current Visit: Yes Status: Acute Code(s): U07.1 - COVID-19 (2) Acute exacerbation of CHF (congestive heart failure) Current Visit: Yes Status: Acute Code(s): I50.9 - HEART FAILURE, UNSPECIFIED (3) Elevated troponin Current Visit: Yes Status: Acute Code(s): R79.89 - OTHER SPECIFIED ABNORMAL FINDINGS OF BLOOD CHEMISTRY (4) HTN (hypertension) Current Visit: Yes Status: Acute Code(s): I10 - ESSENTIAL (PRIMARY) HYPERTENSION (5) Hyponatremia Current Visit: Yes Status: Acute Code(s): E87.1 - HYPO-OSMOLALITY AND H YPONATREMIA (6) Anxiety Current Visit: No Status: Acute Code(s): F41.9 - ANXIETY DISORDER, UNSPECIFIED (7) Hyperlipidemia Current Visit: No Status: Acute Code(s): E78.5 - HYPERLIPIDEMIA, UNSPECIFIED (8) Skin abnormalities Current Visit: No Status: Acute Code(s): L98.9 - DISORDER OF THE SKIN AND SUBCUTANEOUS TISSUE, UNSPECIFIED (9) Uncontrolled diabetes mellitus Current Visit: No Status: Acute Code(s): OAG6394 - (10) Afib Current Visit: Yes Status: Acute Code(s): I48.91 - UNSPECIFIED ATRIAL FIBRILLATION (11) Peripheral neuropathy Current Visit: Yes Status: Acute Code(s): G62.9 - POLYNEUROPATHY, UNSPECIFIED - Discharge Disposition: Home, Self-Care Condition: Good Prescriptions: New Molnupiravir [Lagevrio (Eua)] 800 mg PO BID cap Continue Duloxetine HCl [Cymbalta] 60 mg PO BID Omeprazole 40 mg PO DAILY PRN PRN Reason: Indigestion Atorvastatin Calcium [Lipitor 40Mg] 40 mg PO HS Carvedilol 3.125 mg [Coreg 3.125 MG] 3.125 mg PO BID Trazodone HCl 50 mg [Desyrel 50 mg] 50 mg PO HS PRN PRN Reason: Insomnia Ropinirole 2Mg [Requip 2Mg Tab] 2 mg PO HS Insulin Aspart [NovoLOG Insulin] 1 unit SQ UD Insulin Glargine [Lantus Insulin] 50 unit SQ BID Spironolactone 25 mg [Aldactone 25 MG] 25 mg PO DAILY 30 Days #30 tablet Carvedilol 3.125 mg [Coreg 3.125 MG] 6.25 mg PO BID 30 Days #120 tablet Apixaban [Eliquis 2.5 mg Tablet] 5 mg PO BID 30 Days #60 tablet Empagliflozin [Jardiance] 10 mg PO DAILY 30 Days #30 tablet Potassium Chloride Tab* [Klor Con] 20 meq PO DAILY 30 Days #30 tablet Furosemide 40 mg [Lasix 40 MG] 40 mg PO DAILY 30 Days #30 tablet Lisinopril 10 mg [Zestril 10 MG] 10 mg PO DAILY Instructions: Heart Failure, Adult (DC), COVID-19 (DC) Additional Instructions: PATIENT NEEDS TO F/U WITH [facility] PER DR CRISTIAN NUÑEZ WINCHER [id number] Follow up with: Sim Garcia MD [CONSULTING PHYSICIAN] - 1 Week
[2023-09-21] MEDS: Lasix 40 MG/4 ML IV SCH (05:54)
[2023-09-21 06:32] LABS: Absolute Neutrophil Ct (ANC) 5.47 x10^3/uL (1.4-6.9); BASOPHIL % 0.2 % (0.0-0.4); Basophil (Absolute #) 0.01 x10^3/uL (0-0.4); Eosinophil % 0.3 % (0.00-5.0); Eosinophil (Absolute #) 0.02 x10^3/uL (0-0.5); Hematocrit 38.1 % (42-50); Hemoglobin 12.3 g/dL (12.5-18.0); IMMATURE GRAN # 0.02 x10^3u/L (0.00-0.03); IMMATURE GRAN % 0.3 % (0.00-0.4); Lymphocyte (Absolute #) 0.73 x10^3/uL (1.0-4.6); Lymphocytes % 11.1 % (24.0-44.0); Mean Cell Volume 86.4 fL (78-100); Mean Corpuscular Hemoglobin 27.9 pg (26-32); Mean Corpuscular Hgb Concent. 32.3 g/dL (32-36); Mean Platelet Volume 10.6 fL (7.5-11.0); Monocyte (Absolute #) 0.31 x10^3/uL (0.0-1.3); Monocytes % 4.7 % (0.0-12.0); Neutrophil % 83.4 % (36.0-66.0); Platelet Count 267 x10^3/uL (150-450); Red Blood Count 4.41 x10^6/uL (4.1-5.6); Red Cell Distribution Width 14.1 % (11.5-14.0); White Blood Count 6.6 x10^3/uL (4.0-10.5)
[2023-09-21 06:44] LABS: ALBUMIN 3.6 g/dL (3.5-5.0); ANION GAP 9.7 MEQ/L (5-15); BILIRUBIN,TOTAL 0.6 mg/dL (0.2-1.3); Creatinine 1 0.94 mg/dL (0.66-1.25); MAGNESIUM 2.2 mg/dL (1.6-2.3); Potassium 4.4 mmol/L (3.5-5.1); Total Protein 6.8 g/dL (6.3-8.2)
[2023-09-21] MEDS: Lantus Insulin SQ SCH (08:22)
[2023-09-21] MEDS: HUMALOG SQ SCH (08:22)
[2023-09-21 09:31] VITALS: BP 154/99; PULSE 89; RESP 18; TEMP 96.4; O2SAT 98
[2023-09-21] MEDS: ELIQUIS 2.5 MG TABLET PO SCH (09:42)
[2023-09-21] MEDS: Zestril 10 MG PO SCH (09:42)
[2023-09-21] MEDS: DELTASONE 20 MG PO SCH (09:42)
[2023-09-21] MEDS: Cymbalta 30 MG Capsule PO SCH (09:42)
[2023-09-21] MEDS: Klor Con PO SCH (09:42)
[2023-09-21] MEDS: Protonix 40MG Tablet PO SCH (09:42)
[2023-09-21] MEDS: Aldactone 25 MG PO SCH (09:42)
[2023-09-21] MEDS: JARDIANCE PO SCH (09:43)
[2023-09-21] MEDS: LAGEVRIO (EUA) PO SCH (09:43)
[2023-09-21] MEDS: Zithromax 500 MG/ 250 ML NaCl Premix 500 MG/250 ML IVPB IV SCH (10:11)
== END 2023-09-21 11:29 | disposition home or self-care (01) ==
LOC: ED 09:59 → MED SURG 12:45
PROVIDERS: ADMIT Internal Medicine; ATTEND Internal Medicine
DX: U07.1 COVID-19 (principal); I11.0 Hypertensive heart disease with heart failure; I50.9 Heart failure, unspecified; R79.89 Other specified abnormal findings of blood chemistry; E87.1 Hypo-osmolality and hyponatremia; F41.9 Anxiety disorder, unspecified; E78.5 Hyperlipidemia, unspecified; S60.322A Blister (nonthermal) of left thumb, initial encounter; E11.65 Type 2 diabetes mellitus with hyperglycemia; I48.91 Unspecified atrial fibrillation; E11.42 Type 2 diabetes mellitus with diabetic polyneuropathy; J44.9 Chronic obstructive pulmonary disease, unspecified; R60.0 Localized edema; Z79.01 Long term (current) use of anticoagulants; Z79.899 Other long term (current) drug therapy; Z20.828 Contact with and (suspected) exposure to other viral communicable diseases; Z59.87 Material hardship due to limited financial resources, not elsewhere classified
CPT/HCPCS: 0241U; 36000; 36415; 71045; 80053; 80307; 82947; 83735; 83880; 84484; 85025; 85379; 85610; 85730; 87070; 93005; 93041; 94762; 99284; 87077; 93268; J0456; J1817; J1940; A9270-GY; G0378

== ENCOUNTER 2023-10-15 23:14 | Observation (INO) | payer MEDICARE ==
[2023-10-16 02:06] LABS: Absolute Neutrophil Ct (ANC) 9.48 x10^3/uL (1.4-6.9); BASOPHIL % 0.5 % (0.0-0.4); Basophil (Absolute #) 0.06 x10^3/uL (0-0.4); Eosinophil (Absolute #) 0.12 x10^3/uL (0-0.5); Hematocrit 45.2 % (42-50); Hemoglobin 15.2 g/dL (12.5-18.0); IMMATURE GRAN # 0.05 x10^3u/L (0.00-0.03); IMMATURE GRAN % 0.4 % (0.00-0.4); Lymphocyte (Absolute #) 2.22 x10^3/uL (1.0-4.6); Lymphocytes % 17.6 % (24.0-44.0); Mean Corpuscular Hemoglobin 27.6 pg (26-32); Mean Corpuscular Hgb Concent. 33.6 g/dL (32-36); Mean Platelet Volume 10.2 fL (7.5-11.0); Monocyte (Absolute #) 0.66 x10^3/uL (0.0-1.3); Monocytes % 5.2 % (0.0-12.0); Neutrophil % 75.3 % (36.0-66.0); Platelet Count 376 x10^3/uL (150-450); Red Blood Count 5.51 x10^6/uL (4.1-5.6); Red Cell Distribution Width 13.4 % (11.5-14.0); White Blood Count 12.6 x10^3/uL (4.0-10.5)
[2023-10-16 02:12] LABS: ALBUMIN 4.4 g/dL (3.5-5.0); ANION GAP 15.9 MEQ/L (5-15); BILIRUBIN,TOTAL 0.4 mg/dL (0.2-1.3); Calcium 10.1 mg/dL (8.4-10.2); Creatinine 1 1.98 mg/dL (0.66-1.25); EST GLOMERULAR FILTRATION RATE 36.8 ML/MIN; Potassium 3.7 mmol/L (3.5-5.1)
[2023-10-16 02:24] LABS: INFLUENZA A NEGATIVE (NEGATIVE); INFLUENZA B NEGATIVE (NEGATIVE); RESPIRATORY SYNCTIAL VIRUS NEGATIVE (NEGATIVE); SARS-CoV-2 Xpert Express NEGATIVE (NEGATIVE)
[2023-10-16] MEDS ORDERED: Sodium Chloride 0.9% 1000 ML 1,000 ML ONE (03:16)
[2023-10-16] MEDS: Sodium Chloride 0.9% 1000 ML 1,000 ML IV STA (03:19)
--- NOTE | 2023-10-16 03:24 | ERPHSYRPT ---
- History of Present Illness Source: patient Exam Limitations: no limitations Patient Subjective Stated Complaint: headache, nausea, weakness Triage Nursing Assessment: pt brought back to ER via wheelchair. Pt alert and oriented x4. Pt c/o abd pain since 11am. Pt denies any vomiting, diarrhea or indigestion. Pt was incontinent of stool when we got him out of the wheelchair. Stool was soft and stuck to pt's buttocks. Abd soft with active bs x4 quad, nontender on palpation. Pt states he had covid 3 weeks ago. Pt denies any sob or chest pain. Timing/Duration: yesterday Severity: moderate Modifying Factors: Improves With: nothing Associated Symptoms: denies symptoms Hx Tetanus, Diphtheria Vaccination/Date Given: Yes Hx Influenza Vaccination/Date Given: Yes Hx Pneumococcal Vaccination/Date Given: Yes Immunizations Up to Date: Yes - History of Present Illness Time Seen by Provider: 10/16/23 01:46 Physician History: 63-year-old male presents to our ED for evaluation of generalized weakness and abdominal pain. Patient states abdominal pain started at 11 AM yesterday. Pain has been constant. Patient has had 1 episode of stool incontinence. Patient complains of generalized weakness only. No chest pain or shortness of breath. No nausea vomiting diaphoresis. Patient advised that he had COVID 3 weeks ago and has been feeling unwell since. Patient voices no other complaints or concer ns at this time. Portions of this note were created with voice recognition technology. There may be grammatical, spelling, punctuation or sound alike errors (MEAGHAN NICHOLS) Allergies/Adverse Reactions: diphenhydramine [From Benadryl] Allergy (Verified 10/16/23 01:39) Difficulty Breathing Iodinated Contrast Media Allergy (Verified 10/16/23 01:39) Difficulty Breathing Home Medications: Atorvastatin Calcium [Lipitor 40Mg] 40 mg PO HS 07/28/23 [History] Duloxetine HCl [Cymbalta] 60 mg PO BID 07/28/23 [History] Insulin Aspart [NovoLOG Insulin] 1 unit SQ UD 07/28/23 [History] Insulin Glargine [Lantus Insulin] 50 unit SQ BID 07/28/23 [History] Omeprazole 40 mg PO DAILY PRN 07/28/23 [History] Ropinirole 2Mg [Requip 2Mg Tab] 2 mg PO HS 07/28/23 [History] Trazodone HCl 50 mg [Desyrel 50 mg] 50 mg PO HS PRN 07/28/23 [History] Lisinopril 10 mg [Zestril 10 MG] 10 mg PO DAILY 09/19/23 [History] Carvedilol 3.125 mg [Coreg 3.125 MG] 12.5 mg PO BID 10/16/23 [History] Potassium Chloride 20 meq PO DAILY 10/16/23 [History] Travel Risk - International Travel Have you traveled outside of the country in past 3 weeks: No - Coronavirus Screening Are you exhibiting any of the following symptoms?: Yes Symptoms: Headaches/Body Aches/Fatigue Close contact with a COVID-19 positive Pt in past 14-21 Days: No - Vaccine Status Have you recieved a Covid-19 vaccination: Yes [employer]: Unknown - Vaccination Dates Dates if Unknown: . - Review of Systems Constitutional: No Symptoms, No Fever, No Chills Eyes: No Symptoms Ears, Nose, & Throat: No Symptoms Respiratory: No Symptoms, No Cough, No Dyspnea Cardiac: No Symptoms, No Chest Pain, No Edema, No Syncope Abdominal/Gastrointestinal: No Symptoms, No Abdominal Pain, No Nausea, No Vomiting, No Diarrhea Genitourinary Symptoms: No Symptoms, No Dysuria Musculoskeletal: No Symptoms, No Back Pain, No Neck Pain Skin: No Symptoms, No Rash Neurological: No Symptoms, No Dizziness, No Focal Weakness, No Sensory Changes Psychological: No Symptoms Endocrine: No Symptoms Hematologic/Lymphatic: No Symptoms Immunological/Allergic: No Symptoms All Other Systems: Reviewed and Negative - Past Medical History Pertinent Past Medical History: Yes Neurological History: Peripheral Neuropathy ENT History: Cataracts Cardiac History: Arrhythmia, Congestive Heart Failure, Hypertension Respiratory History: Bronchitis, CHF, COPD, Sleep Apnea Endocrine Medical History: Diabetes Type II Musculoskeletal History: Osteoarthritis GI Medical History: GERD History: No Pertinent History Psycho-Social History: Anxiety, Depression Male Reproductive Disorders: No Pertinent History Other Medical History: a.fib, restless leg - Past Surgical History Past Surgical History: Yes Neuro Surgical History: No Pertinent History Cardiac: Pacemaker Respiratory: No Pertinent History Gastrointestinal: Cholecystectomy Genitourinary: No Pertinent History Musculoskeletal: Amputation Male Surgical History: No Pertinent History Other Surgical History: cardiac ablation, 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 - Social History Smoking Status: Never smoker Exposure to second hand smoke: Yes Drug Use: none Patient Lives Alone: No - Physical Exam General Appearance: no apparent distress, alert Eye Exam: PERRL/EOMI, eyes nml inspection Ears, Nose, Throat Exam: normal ENT inspection, TMs normal, pharynx normal, moist mucous membranes Neck Exam: normal inspection, non-tender, supple, full range of motion Respiratory Exam: normal breath sounds, lungs clear, airway intact, No respiratory distress Cardiovascular Exam: regular rate/rhythm, normal heart sounds, normal peripheral pulses Gastrointestinal/Abdomen Exam: soft, normal bowel sounds, No tenderness, No mass Back Exam: normal inspection, normal range of motion, No CVA tenderness, No vertebral tenderness Extremity Exam: normal inspection, normal range of motion, pelvis stable Neurologic Exam: alert, oriented x 3, cooperative, normal mood/affect, nml cerebellar function, nml station & gait, sensation nml, No motor deficits Skin Exam: normal color, warm, dry, No rash Lymphatic Exam: No adenopathy SpO2 Interpretation: normal SpO2: 98 O2 Delivery: Room Air - Nursing Vital Signs Nursing Vital Signs: Initial Vital Signs Temperature 96.9 F 10/16/23 01:28 Pulse Rate 82 10/16/23 01:28 Respiratory Rate 18 10/16/23 01:28 Blood Pressure 110/69 10/16/23 01:28 O2 Sat by Pulse Oximetry 100 10/16/23 01:28 Pain Scale Pain Intensity 0 - Course Nursing assessment & vital signs reviewed: Yes - CT Exams Head CT Interpretation: Tele-radiologist Report (No acute cerebral insult, suspected new right high frontal subcortical hypodense foci may be small ischemic or nonspecific further assessment by MRI to rule out ischemic changes as recommended. Brain mild involutional changes) Ordered Tests: Active Orders 24 hr Category Date Time Status Terry Cloth Cutter Hand STAT Care 10/16/23 02:01 Active EKG-ER Only STAT Care 10/16/23 02:00 Active IV Insertion STAT Care 10/16/23 02:00 Active Pulse Oximetry (ED) STAT Care 10/16/23 02:00 Active ABDOMEN AND PELVIS W/0 CONTRAS [CT] Stat Exams 10/16/23 02:18 Taken HEAD WITHOUT CONTRAST [CT] Stat Exams 10/16/23 02:18 Taken CBC W DIFF Stat Lab 10/16/23 02:03 Completed CMP Stat Lab 10/16/23 02:03 Completed TROPONIN Q4H Lab 10/16/23 02:03 Completed TROPONIN Q4H Lab 10/16/23 05:02 Completed TROPONIN Q4H Lab 10/16/23 10:15 Ordered UA W/RFX UR CULTURE Stat Lab 10/16/23 02:01 Ordered Transfer Order Routine Transfer 10/16/23 Ordered Medication Summary Discontinued Medications Generic Name Dose Route Start Last Admin Trade Name Kimaniq PRN Reason Stop Dose Admin Sodium Chloride 1,000 mls @ 999 mls/hr 10/16/23 03:16 10/16/23 07:26 Sodium Chloride 0.9% 1000 Ml IV 10/16/23 04:16 Infused .Q1H1M STA Infusion Sodium Chloride Confirm 10/16/23 03:16 Sodium Chloride 0.9% 1000 Ml Administered 10/16/23 03:17 Dose 1,000 mls @ ud .ROUTE .STK-MED ONE Lab/Rad Data: Laboratory Result Diagrams 10/16/23 02:03 10/16/23 02:03 Laboratory Results 10/16/23 10/16/23 10/16/23 Range/Units 05:02 02:03 02:03 WBC (4.0-10.5) x10^3/uL RBC (4.1-5.6) x10^6/uL Hgb (12.5-18.0) g/dL Hct (42-50) % MCV (78-100) fL MCH (26-32) pg MCHC (32-36) g/dL RDW (11.5-14.0) % Plt Count (150-450) x10^3/uL MPV (7.5-11.0) fL Gran % (36.0-66.0) % Immature Gran % (Auto) (0.00-0.4) % Nucleat RBC Rel Count (0.00-0.1) % Eos # (Auto) (0-0.5) x10^3/uL Immature Gran # (Auto) (0.00-0.03) x10^3u/L Absolute Lymphs (auto) (1.0-4.6) x10^3/uL Absolute Monos (auto) (0.0-1.3) x10^3/uL Absolute Nucleated RBC (0.00-0.01) x10^3u/L Lymphocytes % (24.0-44.0) % Monocytes % (0.0-12.0) % Eosinophils % (0.00-5.0) % Basophils % (0.0-0.4) % Absolute Granulocytes (1.4-6.9) x10^3/uL Basophils # (0-0.4) x10^3/uL Sodium 128 L (137-145) mmol/L Potassium 3.7 (3.5-5.1) mmol/L Chloride 89 L (98-107) mmol/L Carbon Dioxide 27 (22-30) mmol/L Anion Gap 15.9 H (5-15) MEQ/L BUN 27 H (9-20) mg/dL Creatinine 1.98 H (0.66-1.25) mg/dL Estimated GFR 36.8 ML/MIN Glucose 98 (74-106) mg/dL Calcium 10.1 (8.4-10.2) mg/dL Total Bilirubin 0.40 (0.2-1.3) mg/dL AST 29 (17-59) U/L ALT 32 (0-50) U/L Alkaline Phosphatase 140 H (38-126) U/L Troponin I 0.120 H* 0.127 H* (0.000-0.034) ng/mL Serum Total Protein 8.0 (6.3-8.2) g/dL Albumin 4.4 (3.5-5.0) g/dL Influenza Type A Ag (NEGATIVE) Influenza Type B Ag (NEGATIVE) RSV (PCR) (NEGATIVE) SARS-CoV-2 (PCR) (NEGATIVE) 10/16/23 10/16/23 Range/Units 02:03 01:45 WBC 12.6 H (4.0-10.5) x10^3/uL RBC 5.51 (4.1-5.6) x10^6/uL Hgb 15.2 (12.5-18.0) g/dL Hct 45.2 (42-50) % MCV 82.0 (78-100) fL MCH 27.6 (26-32) pg MCHC 33.6 (32-36) g/dL RDW 13.4 (11.5-14.0) % Plt Count 376 (150-450) x10^3/uL MPV 10.2 (7.5-11.0) fL Gran % 75.3 H (36.0-66.0) % Immature Gran % (Auto) 0.4 (0.00-0.4) % Nucleat RBC Rel Count 0.0 (0.00-0.1) % Eos # (Auto) 0.12 (0-0.5) x10^3/uL Immature Gran # (Auto) 0.05 H (0.00-0.03) x10^3u/L Absolute Lymphs (auto) 2.22 (1.0-4.6) x10^3/uL Absolute Monos (auto) 0.66 (0.0-1.3) x10^3/uL Absolute Nucleated RBC 0.00 (0.00-0.01) x10^3u/L Lymphocytes % 17.6 L (24.0-44.0) % Monocytes % 5.2 (0.0-12.0) % Eosinophils % 1.0 (0.00-5.0) % Basophils % 0.5 (0.0-0.4) % Absolute Granulocytes 9.48 H (1.4-6.9) x10^3/uL Basophils # 0.06 (0-0.4) x10^3/uL Sodium (137-145) mmol/L Potassium (3.5-5.1) mmol/L Chloride (98-107) mmol/L Carbon Dioxide (22-30) mmol/L Anion Gap (5-15) MEQ/L BUN (9-20) mg/dL Creatinine (0.66-1.25) mg/dL Estimated GFR ML/MIN Glucose (74-106) mg/dL Calcium (8.4-10.2) mg/dL Total Bilirubin (0.2-1.3) mg/dL AST (17-59) U/L ALT (0-50) U/L Alkaline Phosphatase (38-126) U/L Troponin I (0.000-0.034) ng/mL Serum Total Protein (6.3-8.2) g/dL Albumin (3.5-5.0) g/dL Influenza Type A Ag NEGATIVE (NEGATIVE) Influenza Type B Ag NEGATIVE (NEGATIVE) RSV (PCR) NEGATIVE (NEGATIVE) SARS-CoV-2 (PCR) NEGATIVE (NEGATIVE) - Progress Progress: improved Counseled pt/family regarding: lab results, diagnosis, rad results - Progress Progress Note: 63-year-old male diagnosed with COVID 3 weeks ago feeling unwell since then, presents to our ED for evaluation of abdominal pain. Patient had 1 bout of stool incontinence. Patient complains of generalized weakness as well. Workup reveals acute renal injury. Troponin elevated. Second troponin pending. Patient will likely require admission versus transfer. Is currently the change of shift. Patient endorsed to Dr. Hurt who will follow-up on troponin and make final disposition. Portions of this note were created with voice recognition technology. There may be grammatical, spelling, punctuation or sound alike errors Complexity problem addressed is moderate acute complicated No critical care time Complex of data reviewed and analyzed is extensive. Test ordered test reviewed. Results analyzed and correlated clinically with history and physical examination. Management discussed with hospitalist Risk complication and or risk of morbidity/mortality of patient management is high. Patient requires hospitalization for further evaluation and treatment. Vital stable. Time spent to admit patient is approximately 25 minutes. Plan of care established for shared decision making. No social determinants of health present impede follow-up. Patient disclaimer 10/16/23 06:32 (MEAGHAN NICHOLS) 10/16/23 08:12 Patient's second troponin came back which is trending down and he thinks it is more of renal related while Dr. Nichols was in the emergency room and he did put the admission orders. He paged hospitalist , was waiting for his call back. I did discuss case with hospitalist, reviewed history, workup and recommendations of admission from Dr. Nichols and he agreed with admission. Plan discussed with patient and family who understand and agree. (NACHO HURT) - Departure Critical Care Time: No - Departure Clinical Impression: Leukocytosis, Hyponatremia, Acute renal injury, Elevated troponin, Left maxillary sinusitis, Lung granuloma, Right inguinal hernia, Colonic diverticular disease Condition: Stable Referrals: ROGELIO CAVAZOS, [Primary Care Provider] - Follow up/PCP as directed
--- NOTE | 2023-10-16 08:55 | XRAY ---
CLINICAL HISTORY: pain TECHNIQUE: Axial non-contrast CT scan of the brain was performed from the skull base to the high parietal region. Coronal and sagittal reconstructions were also obtained. COMPARISON: None. FINDINGS: There is suspected few right high frontal subcortical hypodense foci seen without edema or mass effect. The ventricular system and cortical sulci as well as basal cisterns are slightly prominent suggestive of mild age related involutional changes. No calvarial fracture lines or depressed bony segments. No intra or extra axial areas of acute blood densities or collections. No midline shifts or deformity. Otherwise, unremarkable posterior fossa structures namely brainstem and cerebellum. Mild atheromatous calcifications of the cavernous segments of internal carotid arteries. Left maxillary sinusitis. IMPRESSION: 1. No acute cerebral insult on CT bases. 2. Suspected few right high frontal subcortical hypodense foci, may be small ischemic or non specific further assessment by MRI to rule out ischemic changes is recommended if found clinically indicted. 3. Brain mild involutional changes. Electronically Signed by: Brandin Miles MD. (10/16/2023 03:17:36 EST)
--- NOTE | 2023-10-16 09:03 | XRAY ---
CLINICAL HISTORY: pain TECHNIQUE: CT scan of the abdomen and pelvis was performed without IV contrast. Coronal and sagittal reconstructive images were also obtained. COMPARISON: CT dated 07/28/2023. FINDINGS: Scanned lung bases reveals a calcified granuloma (5mm in size) seen in the right lower lobe as well as a left lower lobar calcified granuloma (2.3 mm in size). No pleural effusions are seen in the current study. Complete resolution of the previously seen diffuse subcutaneous fat stranding and diffuse mesenteric fat stranding. The liver is normal in size. No focal or diffuse parenchymal abnormality. The portal vein, intrahepatic biliary radicals and the bile ducts are normal. The gall bladder is not visualized (surgically removed). Both adrenal glands are unremarkable. Tiny calcific foci seen in the spleen are likely benign (granulomas). Almost complete fatty atrophy of the pancreas is seen. 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 Otherwise, the kidneys are unremarkable. They are normal in size and shape. No calculi or hydronephrosis. The visualized small and large bowel loops are unremarkable. A normal appendix is seen. Few non-complicated diverticula are seen in the sigmoid colon. Fat-containing inguinal hernia seen on the left side (redemonstrated). There is no evidence of significant enlargement of the mesenteric or retroperitoneal lymph nodes. The urinary bladder is unremarkable. The prostate is unremarkable. Vas deferns calcification are noted. No ascites seen. Few atherosclerotic calcifications of the aorta, no aneurysmal dilations. Spondylodegenerative changes of the visualized spine most appreciated at T12-L1 and L5-S1 levels. IMPRESSION: 1. Time interval complete resolution of the previously visualized bilateral pleural effusions, diffuse subcutaneous fat stranding and diffuse mesenteric fat stranding. 2. Few non-complicated colonic diverticula. 3. Redemonstration of a duplex right kidney, fatty atrophy of the pancreas and small left inguinal fat-containing hernia with no significant changes. CLINICAL HISTORY: pain TECHNIQUE: CT scan of the abdomen and pelvis was performed without IV contrast. Coronal and sagittal reconstructive images were also obtained. COMPARISON: CT dated 07/28/2023. FINDINGS: Scanned lung bases reveals a calcified granuloma (5mm in size) seen in the right lower lobe as well as a left lower lobar calcified granuloma (2.3 mm in size). No pleural effusions are seen in the current study. Complete resolution of the previously seen diffuse subcutaneous fat stranding and diffuse mesenteric fat stranding. The liver is normal in size. No focal or diffuse parenchymal abnormality. The portal vein, intrahepatic biliary radicals and the bile ducts are normal. The gall bladder is not visualized (surgically removed). Both adrenal glands are unremarkable. Tiny calcific foci seen in the spleen are likely benign (granulomas). Almost complete fatty atrophy of the pancreas is seen. 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 Otherwise, the kidneys are unremarkable. They are normal in size and shape. No calculi or hydronephrosis. The visualized small and large bowel loops are unremarkable. A normal appendix is seen. Few non-complicated diverticula are seen in the sigmoid colon. Fat-containing inguinal hernia seen on the left side (redemonstrated). There is no evidence of significant enlargement of the mesenteric or retroperitoneal lymph nodes. The urinary bladder is unremarkable. The prostate is unremarkable. Vas deferns calcification are noted. No ascites seen. Few atherosclerotic calcifications of the aorta, no aneurysmal dilations. Spondylodegenerative changes of the visualized spine most appreciated at T12-L1 and L5-S1 levels.
[2023-10-16] MEDS ORDERED: NON-FORMULARY ITEM (Omeprazole [Omeprazole] 40 MG Capsule.Dr) PO PRN (12:36)
[2023-10-16] MEDS ORDERED: HUMALOG SQ PRN (12:42)
[2023-10-16] MEDS ORDERED: Compazine 10 MG/2 ML IM PRN (12:43)
[2023-10-16] MEDS ORDERED: NON-FORMULARY ITEM (Insulin Aspart** [Novolog Insulin**] 1 UNIT Unit) SQ SCH (12:45)
[2023-10-16] MEDS ORDERED: Protonix 40MG Tablet PO PRN (12:58)
[2023-10-16] MEDS: Sodium Chloride 0.9% 1000 ML 1,000 ML IV SCH (13:35)
[2023-10-16 13:59] LABS: Appearance Cloudy (Clear); Bacteria Few /HPF (None Seen); Bilirubin Negative (Negative); Blood Negative (Negative); Budding Yeast Few /HPF (None Seen); Epithelial Cells Moderate /HPF (None Seen); Glucose, Urine >=1000 mg/dL (Negative); Hyaline Casts None Seen /LPF (0-2); Ketones Negative (Negative); Leukocyte Esterase Small (Negative); Nitrite Negative (Negative); Protein,Urine Dip 100 (Negative); RBC 0-2 /HPF (0-5); Specific Gravity 1.025 (1.005-1.030); Urobilinogen 0.2 mg/dL (0.2)
[2023-10-16 14:00] LABS: ADD URINE CULTURE? YES (NO)
[2023-10-16] MEDS: REQUIP 2MG TAB PO SCH ×2 (14:34→17:27)
[2023-10-16] MEDS: Lantus Insulin SQ SCH ×2 (14:35→17:26)
[2023-10-16] MEDS: HUMALOG SQ PRN (14:36)
--- NOTE | 2023-10-16 14:55 | PCM.HP ---
History of Present Illness - Chief Complaint Chief Complaint: Acute renal injury, elevated trop, hyponatremia Date: 10/16/23 History of Present Illness: is a 63 year old male with PMHX of a-fib, restless legs, anxiety, depression, Gerd, OA, Type II DM, Bronchitis, COPD, Sleep apnea, arrythmia, CHF, pacemaker, cardiac ablation, HTN, MRSA of neck, cataracts, and peripheral neuropathy. He presented to our ED for evaluation of generalized weakness and abdominal pain. Patient states abdominal pain started at 11 AM yesterday. Pain has been constant. Patient has had 1 episode of stool incontinence. He was vomiting 2-3 days ago but this has resolved. Patient complains of generalized weakness and headache. No chest pain or shortness of breath. No nausea vomiting diaphoresis. Patient advised that he had COVID 3 weeks ago and has been feeling unwell since. Patient voices no other complaints or concerns at this time. In ER he was given 1 L IVF bolus. Will continue IVF but at a reduced rate as EF is 33%. He has an appointment to f/u with cardiology tomorrow. He denies CP, SOB, abd. pain, N/V/D. - Review of Systems Constitutional: Weakness, No Fever, No Chills Eyes: No Symptoms Ears, Nose, & Throat: No Symptoms Respiratory: No Cough, No Short Of Breath Cardiac: No Chest Pain, No Edema, No Syncope Abdominal/Gastrointestinal: No Abdominal Pain, No Nausea, No Vomiting, No Diarrhea Genitourinary Symptoms: No Dysuria Musculoskeletal: No Back Pain, No Neck Pain Skin: No Rash Neurological: No Dizziness, No Focal Weakness, No Sensory Changes Psychological: No Symptoms Endocrine: No Symptoms Hematologic/Lymphatic: No Symptoms Immunological/Allergic: No Symptoms Medications & Allergies Home Medications: Home Medication List Atorvastatin Calcium [Lipitor 40Mg] 40 mg PO HS 07/28/23 [History Confirmed 10/16/23] Duloxetine HCl [Cymbalta] 60 mg PO BID 07/28/23 [History Confirmed 10/16/23] Insulin Aspart [NovoLOG Insulin] 1 unit SQ UD 07/28/23 [History Confirmed 10/16/23] Insulin Glargine [Lantus Insulin] 50 unit SQ BID 07/28/23 [History Confirmed 10/16/23] Omeprazole 40 mg PO DAILY PRN 12/03/23 [History Confirmed 10/16/23] Ropinirole 2Mg [Requip 2Mg Tab] 2 mg PO HS 07/28/23 [History Confirmed 10/16/23] Trazodone HCl 50 mg [Desyrel 50 mg] 50 mg PO HS PRN 07/28/23 [History Confirmed 10/16/23] Apixaban [Eliquis 2.5 mg Tablet] 5 mg PO BID 30 Days #60 tablet 07/30/23 [Rx Confirmed 10/16/23] Empagliflozin [Jardiance] 10 mg PO DAILY 30 Days #30 tablet 07/30/23 [Rx Confirmed 10/16/23] Spironolactone 25 mg [Aldactone 25 MG] 25 mg PO DAILY 30 Days #30 tablet 07/30/23 [Rx Confirmed 10/16/23] Furosemide 40 mg [Lasix 40 MG] 40 mg PO DAILY 30 Days #30 tablet 07/31/23 [Rx Confirmed 10/16/23] Lisinopril 10 mg [Zestril 10 MG] 10 mg PO DAILY 09/19/23 [History Confirmed 10/16/23] Carvedilol 3.125 mg [Coreg 3.125 MG] 12.5 mg PO BID 10/16/23 [History Confirmed 10/16/23] Potassium Chloride 20 meq PO DAILY 10/16/23 [History Confirmed 10/16/23] Allergies/Adverse Reactions: Allergies Allergy/AdvReac Type Severity Reaction Status Date / Time diphenhydramine Allergy Difficulty Verified 10/16/23 01:39 [From Benadryl] Breathing Iodinated Contrast Media Allergy Difficulty Verified 10/16/23 01:39 Breathing - Past Medical History Past Medical History: Yes Neurological History: Peripheral Neuropathy ENT History: Cataracts Cardiac History: Arrhythmia, Congestive Heart Failure, Hypertension Respiratory History: Bronchitis, CHF, COPD, Sleep Apnea Endocrine Medical History: Diabetes Type II Musculoskelatal History: Arthritis, Osteoarthritis GI Medical History: GERD History: No Pertinent History Pyscho-Social History: Anxiety, Depression Male Reproductive Disorders: No Pertinent History Comment: a.fib, restless leg, bulging discs cervical spine - Past Surgical History Past Surgical History: Yes Neuro Surgical History: No Pertinent History Cardiac History: Pacemaker Respiratory Surgery: No Pertinent History GI Surgical History: Cholecystectomy Genitourinary Surgical Hx: No Pertinent History Musculskeletal Surgical Hx: Amputation Male Surgical History: No Pertinent History Other Surgical History: cardiac ablation, 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, needs cataract surgery - Social History Smoking Status: Never smoker Exposure to second hand smoke: No Alcohol: None Drug Use: none - Social Determinants of Health Will the patient participate in the screening: Yes Do you worry about a steady place to live?: No Do you have any problems with any of the following?: No known problems In the past 12 months,have you had to go without utilities?: No Have you or anyone in your house had to go without enough: No Transportation Issues: No Has anyone in your support network made you feel unsafe?: No Does the patient want assistance with any of the above?: No Comment: pt has no running water, would like assistance - Physical Exam Vital Signs: Vital Signs - 24 hr Temp Pulse Resp BP BP Pulse Ox 10/16/23 12:00 98.2 F 88 16 102/55 98 10/16/23 11:34 98.2 F 88 16 102/55 98 10/16/23 09:29 97.9 F 78 18 113/70 99 10/16/23 08:55 97.9 F 78 16 113/70 99 10/16/23 08:30 78 10 L 122/84 100 10/16/23 08:00 75 16 103/68 99 10/16/23 07:30 80 18 122/69 10/16/23 07:02 78 12 104/71 97 10/16/23 06:35 98 10/16/23 06:30 83 25 H 117/65 97 10/16/23 06:00 95 H 14 119/73 98 10/16/23 05:30 78 0 L 126/73 99 10/16/23 05:00 84 3 L 128/75 97 10/16/23 04:30 77 3 L 132/89 97 10/16/23 04:00 80 10 L 114/63 96 10/16/23 03:30 77 12 94/53 96 10/16/23 03:08 79 0 L 75/45 98 10/16/23 02:00 78 18 81/57 81/57 99 10/16/23 01:28 96.9 F 82 18 110/69 100 General Appearance: no apparent distress, alert Neurologic Exam: alert, oriented x 3, cooperative, normal mood/affect, nml cerebellar function, nml station & gait, sensation nml, No motor deficits Eye Exam: PERRL/EOMI, eyes nml inspection Ears, Nose, Throat Exam: normal ENT inspection, TMs normal, pharynx normal, moist mucous membranes Neck Exam: normal inspection, non-tender, supple, full range of motion Respiratory Exam: normal breath sounds, lungs clear, No respiratory distress Cardiovascular Exam: regular rate/rhythm, normal heart sounds, normal peripheral pulses Gastrointestinal/Abdomen Exam: soft, normal bowel sounds, No tenderness, No mass Back Exam: normal inspection, normal range of motion, No CVA tenderness, No vertebral tenderness Extremity Exam: normal inspection, normal range of motion, pelvis stable Skin Exam: normal color, warm, dry, No rash Lymphatic Exam: No adenopathy Results - Labs Lab/Micro Results: Lab Results-Last 24 Hours 10/16/23 10/16/23 10/16/23 Range/Units 01:45 02:01 02:03 WBC 12.6 H (4.0-10.5) x10^3/uL RBC 5.51 (4.1-5.6) x10^6/uL Hgb 15.2 (12.5-18.0) g/dL Hct 45.2 (42-50) % MCV 82.0 (78-100) fL MCH 27.6 (26-32) pg MCHC 33.6 (32-36) g/dL RDW 13.4 (11.5-14.0) % Plt Count 376 (150-450) x10^3/uL MPV 10.2 (7.5-11.0) fL Gran % 75.3 H (36.0-66.0) % Immature Gran % (Auto) 0.4 (0.00-0.4) % Nucleat RBC Rel Count 0.0 (0.00-0.1) % Eos # (Auto) 0.12 (0-0.5) x10^3/uL Immature Gran # (Auto) 0.05 H (0.00-0.03) x10^3u/L Absolute Lymphs (auto) 2.22 (1.0-4.6) x10^3/uL Absolute Monos (auto) 0.66 (0.0-1.3) x10^3/uL Absolute Nucleated RBC 0.00 (0.00-0.01) x10^3u/L Lymphocytes % 17.6 L (24.0-44.0) % Monocytes % 5.2 (0.0-12.0) % Eosinophils % 1.0 (0.00-5.0) % Basophils % 0.5 (0.0-0.4) % Absolute Granulocytes 9.48 H (1.4-6.9) x10^3/uL Basophils # 0.06 (0-0.4) x10^3/uL Sodium (137-145) mmol/L Potassium (3.5-5.1) mmol/L Chloride (98-107) mmol/L Carbon Dioxide (22-30) mmol/L Anion Gap (5-15) MEQ/L BUN (9-20) mg/dL Creatinine (0.66-1.25) mg/dL Estimated GFR ML/MIN Glucose (74-106) mg/dL POC Glucometer (74 to 106) mg/dL Calcium (8.4-10.2) mg/dL Total Bilirubin (0.2-1.3) mg/dL AST (17-59) U/L ALT (0-50) U/L Alkaline Phosphatase (38-126) U/L Troponin I (0.000-0.034) ng/mL Serum Total Protein (6.3-8.2) g/dL Albumin (3.5-5.0) g/dL Urine Color Yellow (Yellow) Urine Appearance Cloudy A (Clear) Urine pH 5.0 (4.6-8.0) Ur Specific Fairborn 1.025 (1.005-1.030) Urine Protein 100 A (Negative) Urine Glucose (UA) >=1000 A (Negative) mg/dL Urine Ketones Negative (Negative) Urine Blood Negative (Negative) Urine Nitrite Negative (Negative) Urine Bilirubin Negative (Negative) Urine Urobilinogen 0.2 (0.2) mg/dL Ur Leukocyte Esterase Small A (Negative) U Hyaline Cast (Auto) None Seen (0-2) /LPF Urine Microscopic RBC 0-2 (0-5) /HPF Urine Microscopic WBC 3-5 (0-5) /HPF Ur Epithelial Cells Moderate A (None Seen) /HPF Urine Bacteria Few A (None Seen) /HPF Urine Yeast (Budding) Few A (None Seen) /HPF Urine Culture Reflexed YES (NO) Influenza Type A Ag NEGATIVE (NEGATIVE) Influenza Type B Ag NEGATIVE (NEGATIVE) RSV (PCR) NEGATIVE (NEGATIVE) SARS-CoV-2 (PCR) NEGATIVE (NEGATIVE) 10/16/23 10/16/23 10/16/23 Range/Units 02:03 02:03 05:02 WBC (4.0-10.5) x10^3/uL RBC (4.1-5.6) x10^6/uL Hgb (12.5-18.0) g/dL Hct (42-50) % MCV (78-100) fL MCH (26-32) pg MCHC (32-36) g/dL RDW (11.5-14.0) % Plt Count (150-450) x10^3/uL MPV (7.5-11.0) fL Gran % (36.0-66.0) % Immature Gran % (Auto) (0.00-0.4) % Nucleat RBC Rel Count (0.00-0.1) % Eos # (Auto) (0-0.5) x10^3/uL Immature Gran # (Auto) (0.00-0.03) x10^3u/L Absolute Lymphs (auto) (1.0-4.6) x10^3/uL Absolute Monos (auto) (0.0-1.3) x10^3/uL Absolute Nucleated RBC (0.00-0.01) x10^3u/L Lymphocytes % (24.0-44.0) % Monocytes % (0.0-12.0) % Eosinophils % (0.00-5.0) % Basophils % (0.0-0.4) % Absolute Granulocytes (1.4-6.9) x10^3/uL Basophils # (0-0.4) x10^3/uL Sodium 128 L (137-145) mmol/L Potassium 3.7 (3.5-5.1) mmol/L Chloride 89 L (98-107) mmol/L Carbon Dioxide 27 (22-30) mmol/L Anion Gap 15.9 H (5-15) MEQ/L BUN 27 H (9-20) mg/dL Creatinine 1.98 H (0.66-1.25) mg/dL Estimated GFR 36.8 ML/MIN Glucose 98 (74-106) mg/dL POC Glucometer (74 to 106) mg/dL Calcium 10.1 (8.4-10.2) mg/dL Total Bilirubin 0.40 (0.2-1.3) mg/dL AST 29 (17-59) U/L ALT 32 (0-50) U/L Alkaline Phosphatase 140 H (38-126) U/L Troponin I 0.127 H* 0.120 H* (0.000-0.034) ng/mL Serum Total Protein 8.0 (6.3-8.2) g/dL Albumin 4.4 (3.5-5.0) g/dL Urine Color (Yellow) Urine Appearance (Clear) Urine pH (4.6-8.0) Ur Specific Fairborn (1.005-1.030) Urine Protein (Negative) Urine Glucose (UA) (Negative) mg/dL Urine Ketones (Negative) Urine Blood (Negative) Urine Nitrite (Negative) Urine Bilirubin (Negative) Urine Urobilinogen (0.2) mg/dL Ur Leukocyte Esterase (Negative) U Hyaline Cast (Auto) (0-2) /LPF Urine Microscopic RBC (0-5) /HPF Urine Microscopic WBC (0-5) /HPF Ur Epithelial Cells (None Seen) /HPF Urine Bacteria (None Seen) /HPF Urine Yeast (Budding) (None Seen) /HPF Urine Culture Reflexed (NO) Influenza Type A Ag (NEGATIVE) Influenza Type B Ag (NEGATIVE) RSV (PCR) (NEGATIVE) SARS-CoV-2 (PCR) (NEGATIVE) 10/16/23 10/16/23 Range/Units 09:50 13:17 WBC (4.0-10.5) x10^3/uL RBC (4.1-5.6) x10^6/uL Hgb (12.5-18.0) g/dL Hct (42-50) % MCV (78-100) fL MCH (26-32) pg MCHC (32-36) g/dL RDW (11.5-14.0) % Plt Count (150-450) x10^3/uL MPV (7.5-11.0) fL Gran % (36.0-66.0) % Immature Gran % (Auto) (0.00-0.4) % Nucleat RBC Rel Count (0.00-0.1) % Eos # (Auto) (0-0.5) x10^3/uL Immature Gran # (Auto) (0.00-0.03) x10^3u/L Absolute Lymphs (auto) (1.0-4.6) x10^3/uL Absolute Monos (auto) (0.0-1.3) x10^3/uL Absolute Nucleated RBC (0.00-0.01) x10^3u/L Lymphocytes % (24.0-44.0) % Monocytes % (0.0-12.0) % Eosinophils % (0.00-5.0) % Basophils % (0.0-0.4) % Absolute Granulocytes (1.4-6.9) x10^3/uL Basophils # (0-0.4) x10^3/uL Sodium (137-145) mmol/L Potassium (3.5-5.1) mmol/L Chloride (98-107) mmol/L Carbon Dioxide (22-30) mmol/L Anion Gap (5-15) MEQ/L BUN (9-20) mg/dL Creatinine (0.66-1.25) mg/dL Estimated GFR ML/MIN Glucose (74-106) mg/dL POC Glucometer 483 H (74 to 106) mg/dL Calcium (8.4-10.2) mg/dL Total Bilirubin (0.2-1.3) mg/dL AST (17-59) U/L ALT (0-50) U/L Alkaline Phosphatase (38-126) U/L Troponin I 0.114 H* (0.000-0.034) ng/mL Serum Total Protein (6.3-8.2) g/dL Albumin (3.5-5.0) g/dL Urine Color (Yellow) Urine Appearance (Clear) Urine pH (4.6-8.0) Ur Specific Fairborn (1.005-1.030) Urine Protein (Negative) Urine Glucose (UA) (Negative) mg/dL Urine Ketones (Negative) Urine Blood (Negative) Urine Nitrite (Negative) Urine Bilirubin (Negative) Urine Urobilinogen (0.2) mg/dL Ur Leukocyte Esterase (Negative) U Hyaline Cast (Auto) (0-2) /LPF Urine Microscopic RBC (0-5) /HPF Urine Microscopic WBC (0-5) /HPF Ur Epithelial Cells (None Seen) /HPF Urine Bacteria (None Seen) /HPF Urine Yeast (Budding) (None Seen) /HPF Urine Culture Reflexed (NO) Influenza Type A Ag (NEGATIVE) Influenza Type B Ag (NEGATIVE) RSV (PCR) (NEGATIVE) SARS-CoV-2 (PCR) (NEGATIVE) Accuchecks Date 10/16/23 Time 13:19 - Radiology Impressions Radiology Exams & Impressions: Radiology Procedures Category Date Time Status ABDOMEN AND PELVIS W/0 CONTRAS [CT] Stat Exams 10/16/23 02:18 Completed HEAD WITHOUT CONTRAST [CT] Stat Exams 10/16/23 02:18 Completed Assessment/Plan (1) Acute renal injury Current Visit: Yes Status: Acute Assessment & Plan: - creat 1.98, baseline normal - IVF NS@ 100 ml/hr - 2:2 hypovolemia, UTI, EF 33% - renal US Code(s): N17.9 - ACUTE KIDNEY FAILURE, UNSPECIFIED (2) UTI (urinary tract infection) Current Visit: Yes Status: Acute Assessment & Plan: - ceftriaxone - IVF Code(s): N39.0 - URINARY TRACT INFECTION, SITE NOT SPECIFIED (3) Weakness Current Visit: Yes Status: Acute Assessment & Plan: - 2;2 MARILU - CT head IMPRESSION: 1. No acute cerebral insult on CT bases. 2. Suspected few right high frontal subcortical hypodense foci, may be small ischemic or non specific further assessment by MRI to rule out ischemic changes is recommended if found clinically indicted. 3. Brain mild involutional changes. - MRI brain ordered and cancelled by radiology as pt has pacemaker - Neurology consult Code(s): R53.1 - WEAKNESS (4) Hyponatremia Current Visit: Yes Status: Acute Assessment & Plan: - Na+ 128 - IVF bolus in ER - IVF started Code(s): E87.1 - HYPO-OSMOLALITY AND HYPONATREMIA (5) Leukocytosis Current Visit: Yes Status: Acute Assessment & Plan: - CT abd IMPRESSION: 1. Time interval complete resolution of the previously visualized bilateral pleural effusions, diffuse subcutaneous fat stranding and diffuse mesenteric fat stranding. 2. Few non-complicated colonic diverticula. 3. Redemonstration of a duplex right kidney, fatty atrophy of the pancreas and small left inguinal fat-containing hernia with no significant changes. - 2:2 UTI, MARILU Code(s): D72.829 - ELEVATED WHITE BLOOD CELL COUNT, UNSPECIFIED (6) Elevated troponin Current Visit: Yes Status: Acute Assessment & Plan: - Trop 0.127, 0.120, 0.114- trending down - 2:2 MARILU - EKG - denies CP - BNP - Pt reports he has a cardiology appointment tomorrow - Echo 07/29/23 per old records The left ventricle is normal in size. There is borderline concentric left ventricular hypertrophy. There is hypokinesis of left ventricular septum. The left ventricular systolic function is moderately decreased. The ejection fraction is calculated to be 33%. The right ventricle has a pacing electrode. The left atrium is moderately dilated. The interatrial septum is intact. The right atrium is normal. The aortic valve opens well. It is trileaflet. There is no aortic regurgitation. There is mitral valve leaflet thickening associated with mild mitral regurgitation. There is mild tricuspid regurgitation. The right ventricular systolic pressure is calculated to be 28 mm of Mercury. The pulmonic valve is not well visualized. The aortic root is normal. There is no pericardial effusion present. IMPRESSION: 1) MODERATE DECREASE IN LEFT VENTRICULAR SYSTOLIC FUNCTION. 2) BORDERLINE CONCENTRIC LEFT VENTRICULAR HYPERTROPHY. 4) HYPOKINESIS OF THE INTERVENTRICULAR SEPTUM. 5) RIGHT VENTRICULAR PACING ELECTRODE. 6) MODERATE LEFT ATRIAL DILATATION. 7) MILD MITRAL REGURGITATION. 8) MILD TRICUSPID REGURGITATION. 9) NORMAL RIGHT VENTRICULAR SYSTOLIC PRESSURE. Code(s): R79.89 - OTHER SPECIFIED ABNORMAL FINDINGS OF BLOOD CHEMISTRY (7) Chronic a-fib Current Visit: Yes Status: Chronic Assessment & Plan: - continue eliquis - tele Code(s): I48.20 - CHRONIC ATRIAL FIBRILLATION, UNSPECIFIED (8) Type II diabetes mellitus Current Visit: Yes Status: Chronic Assessment & Plan: - Humalog s/s, lantus, accuchecks ac/hs - consistent carb diet - A1C VTE: eliquis PPI: Protonix Next of kin: Heath Santos [phone] D/c plan: 1-2 days Code status: full
[2023-10-16] MEDS: HUMULIN R IV ONE (16:39)
[2023-10-16] MEDS: ROCEPHIN 1 GM / 100 ML NaCl 1 GM/100 ML IVPB IV SCH (16:45)
[2023-10-16] MEDS ORDERED: Coreg 3.125 MG PO SCH (22:00)
[2023-10-16] MEDS ORDERED: LIPITOR 40MG PO SCH (22:00)
[2023-10-16] MEDS ORDERED: NON-FORMULARY ITEM (Duloxetine Hcl [Cymbalta] 60 MG Capsule.Dr) PO SCH (22:00)
[2023-10-16] MEDS: ZOCOR 20MG PO SCH (22:44)
[2023-10-16] MEDS: Cymbalta 30 MG Capsule PO SCH (22:45)
[2023-10-16] MEDS: COREG 12.5 MG PO SCH (22:46)
[2023-10-16] MEDS: ELIQUIS 2.5 MG TABLET PO SCH (22:46)
[2023-10-16] MEDS: DESYREL 50 MG PO PRN (22:46)
[2023-10-17 05:35] LABS: Hematocrit 35.9 % (42-50); Hemoglobin 11.9 g/dL (12.5-18.0); Mean Cell Volume 81.6 fL (78-100); Mean Corpuscular Hgb Concent. 33.1 g/dL (32-36); Mean Platelet Volume 10.4 fL (7.5-11.0); Platelet Count 214 x10^3/uL (150-450); Red Cell Distribution Width 13.7 % (11.5-14.0); White Blood Count 5.3 x10^3/uL (4.0-10.5)
[2023-10-17 05:43] LABS: ALBUMIN 3.1 g/dL (3.5-5.0); ANION GAP 10.1 MEQ/L (5-15); BILIRUBIN,TOTAL 0.1 mg/dL (0.2-1.3); Calcium 8.3 mg/dL (8.4-10.2); Creatinine 1 1.66 mg/dL (0.66-1.25); EST GLOMERULAR FILTRATION RATE 45.5 ML/MIN; Total Protein 5.8 g/dL (6.3-8.2)
[2023-10-17] MEDS: Dextrose 5%-NS IV Solution 1000 ML 1,000 ML IV SCH (07:26)
[2023-10-17] MEDS ORDERED: Zestril 10 MG PO SCH (10:00)
[2023-10-17] MEDS ORDERED: NON-FORMULARY ITEM (Potassium Chloride [Potassium Chloride] 10 MEQ Capsule.Er) PO SCH (10:00)
[2023-10-17] MEDS: Klor Con PO SCH (10:42)
[2023-10-17] MEDS: REQUIP 2MG TAB PO SCH (11:16)
[2023-10-17] MEDS: Sodium Chloride 0.9% 1000 ML 1,000 ML IV SCH (11:17)
--- NOTE | 2023-10-17 12:11 | XRAY ---
Indication: Acute kidney injury. Two-dimensional renal sonogram performed. Comparison: None Both kidneys are normal in reniform shape with normal color perfusion. Right kidney measures 11.7 x 5.3 x 4.5 cm and left measures 13.4 x 6.2 x 5.2 cm. No focal solid/cystic hepatic mass or hydronephrosis. Corticomedullary differentiation preserved. Normal distended urinary bladder demonstrates minimal echogenic debris in the dependent portion. Normal bilateral ureteral jets. Impression: Minimal urinary bladder debris. Remaining renal sonogram is negative.
--- NOTE | 2023-10-17 14:53 | PCM.NOTE ---
Date and Time: 10/17/23 1446 Subjective Assessment: 10/16/23 is a 63 year old male with PMHX of a-fib, restless legs, anxiety, depression, Gerd, OA, Type II DM, Bronchitis, COPD, Sleep apnea, arrythmia, CHF, pacemaker, cardiac ablation, HTN, MRSA of neck, cataracts, and peripheral neuropathy. He presented to our ED for evaluation of generalized weakness and abdominal pain. Patient states abdominal pain started at 11 AM yesterday. Pain has been constant. Patient has had 1 episode of stool incontinence. He was vomiting 2-3 days ago but this has resolved. Patient complains of generalized weakness and headache. No chest pain or shortness of breath. No nausea vomiting diaphoresis. Patient advised that he had COVID 3 weeks ago and has been feeling unwell since. Patient voices no other complaints or concerns at this time. In ER he was given 1 L IVF bolus. Will continue IVF but at a reduced rate as EF is 33%. He has an appointment to f/u with cardiology tomorrow. He denies CP, SOB, abd. pain, N/V/D. 10/17/23 Pt sitting up in bed. He reports he is feeling much better. He explained he had an appointment today with his case sealer to discuss replacement as it is not working properly. Will reschedule this appointment for him. Discussed labs in detail and that A1C is > 14. He states he has been working hard on diet and glucose control. Will consult nutrition. MARILU improving. Sodium is about the same,continue IVF. US of kidneys show no acute concerns. Ceftriaxone stopped as urine culture negative. Pt denies any further concerns at this time. - Review of Systems Constitutional: No Fever, No Chills Eyes: No Symptoms Ears, Nose, & Throat: No Symptoms Respiratory: No Cough, No Short Of Breath Cardiac: No Chest Pain, No Edema, No Syncope Abdominal/Gastrointestinal: No Abdominal Pain, No Nausea, No Vomiting, No Diarrhea Genitourinary Symptoms: No Dysuria Musculoskeletal: No Back Pain, No Neck Pain Skin: No Rash Neurological: No Dizziness, No Focal Weakness, No Sensory Changes Psychological: No Symptoms Endocrine: No Symptoms Hematologic/Lymphatic: No Symptoms Immunological/Allergic: No Symptoms Objective Exam General Appearance: no apparent distress, alert Neurologic Exam: alert, oriented x 3, cooperative, normal mood/affect, nml cerebellar function, sensation nml, No motor deficits Skin Exam: normal color, warm, dry Eye Exam: PERRL, EOMI, eyes nml inspection Ears, Nose, Throat Exam: normal ENT inspection, pharynx normal, moist mucous membranes Neck Exam: normal inspection, non-tender, supple, full range of motion Respiratory Exam: normal breath sounds, lungs clear, No respiratory distress Cardiovascular Exam: regular rate/rhythm, normal heart sounds Gastrointestinal/Abdomen Exam: soft, No tenderness, No mass Extremity Exam: normal inspection, normal range of motion Back Exam: normal inspection, normal range of motion, No CVA tenderness, No vertebral tenderness Male Genitalia Exam: deferred Rectal Exam: deferred OBJECTIVE DATA Vital Signs: Vital Signs - 24 hr Temp Pulse Resp BP Pulse Ox 10/17/23 11:46 96.8 F 74 17 125/64 100 10/17/23 08:00 85 22 132/72 94 L 10/17/23 04:00 97.5 F 113 H 19 92/50 96 10/17/23 00:00 97.9 F 82 20 119/65 100 10/16/23 19:51 97.6 F 83 17 122/58 99 10/16/23 15:47 97.2 F 76 18 135/63 98 Pain Assessment - Last Documented Pain Intensity 0 Intake and Output: Intake & Output 10/15/23 10/16/23 10/17/23 10/18/23 11:59 11:59 11:59 11:59 Intake Total 3710 240 Output Total 925 Balance 2785 240 Weight 77.8 kg Lab Results: Lab Results-Last 24 Hours 10/16/23 10/16/23 10/16/23 Range/Units 02:03 15:42 15:45 WBC (4.0-10.5) x10^3/uL RBC (4.1-5.6) x10^6/uL Hgb (12.5-18.0) g/dL Hct (42-50) % MCV (78-100) fL MCH (26-32) pg MCHC (32-36) g/dL RDW (11.5-14.0) % Plt Count (150-450) x10^3/uL MPV (7.5-11.0) fL Sodium (137-145) mmol/L Potassium (3.5-5.1) mmol/L Chloride (98-107) mmol/L Carbon Dioxide (22-30) mmol/L Anion Gap (5-15) MEQ/L BUN (9-20) mg/dL Creatinine (0.66-1.25) mg/dL Estimated GFR ML/MIN Glucose (74-106) mg/dL POC Glucometer 550 H* 528 H* (50 to 500) mg/dL Hemoglobin A1c (4.5-6.0) % Calcium (8.4-10.2) mg/dL Total Bilirubin (0.2-1.3) mg/dL AST (17-59) U/L ALT (0-50) U/L Alkaline Phosphatase (38-126) U/L NT-Pro-B Natriuret Pep 3740 (<300) pg/mL Serum Total Protein (6.3-8.2) g/dL Albumin (3.5-5.0) g/dL 10/16/23 10/16/23 10/16/23 Range/Units 16:11 17:39 20:48 WBC (4.0-10.5) x10^3/uL RBC (4.1-5.6) x10^6/uL Hgb (12.5-18.0) g/dL Hct (42-50) % MCV (78-100) fL MCH (26-32) pg MCHC (32-36) g/dL RDW (11.5-14.0) % Plt Count (150-450) x10^3/uL MPV (7.5-11.0) fL Sodium (137-145) mmol/L Potassium (3.5-5.1) mmol/L Chloride (98-107) mmol/L Carbon Dioxide (22-30) mmol/L Anion Gap (5-15) MEQ/L BUN (9-20) mg/dL Creatinine (0.66-1.25) mg/dL Estimated GFR ML/MIN Glucose 520 H* (74-106) mg/dL POC Glucometer 206 H 125 H (50 to 500) mg/dL Hemoglobin A1c (4.5-6.0) % Calcium (8.4-10.2) mg/dL Total Bilirubin (0.2-1.3) mg/dL AST (17-59) U/L ALT (0-50) U/L Alkaline Phosphatase (38-126) U/L NT-Pro-B Natriuret Pep (<300) pg/mL Serum Total Protein (6.3-8.2) g/dL Albumin (3.5-5.0) g/dL 10/17/23 10/17/23 10/17/23 Range/Units 04:11 04:11 04:11 WBC 5.3 (4.0-10.5) x10^3/uL RBC 4.40 (4.1-5.6) x10^6/uL Hgb 11.9 L D (12.5-18.0) g/dL Hct 35.9 L (42-50) % MCV 81.6 (78-100) fL MCH 27.0 (26-32) pg MCHC 33.1 (32-36) g/dL RDW 13.7 (11.5-14.0) % Plt Count 214 D (150-450) x10^3/uL MPV 10.4 (7.5-11.0) fL Sodium 128 L (137-145) mmol/L Potassium 4.0 (3.5-5.1) mmol/L Chloride 100 D (98-107) mmol/L Carbon Dioxide 22 (22-30) mmol/L Anion Gap 10.1 (5-15) MEQ/L BUN 38 H (9-20) mg/dL Creatinine 1.66 H (0.66-1.25) mg/dL Estimated GFR 45.5 ML/MIN Glucose 133 H (74-106) mg/dL POC Glucometer (50 to 500) mg/dL Hemoglobin A1c > 14.00 H (4.5-6.0) % Calcium 8.3 L D (8.4-10.2) mg/dL Total Bilirubin 0.10 L (0.2-1.3) mg/dL AST 25 (17-59) U/L ALT 22 (0-50) U/L Alkaline Phosphatase 103 (38-126) U/L NT-Pro-B Natriuret Pep (<300) pg/mL Serum Total Protein 5.8 L (6.3-8.2) g/dL Albumin 3.1 L (3.5-5.0) g/dL 10/17/23 10/17/23 Range/Units 06:26 10:53 WBC (4.0-10.5) x10^3/uL RBC (4.1-5.6) x10^6/uL Hgb (12.5-18.0) g/dL Hct (42-50) % MCV (78-100) fL MCH (26-32) pg MCHC (32-36) g/dL RDW (11.5-14.0) % Plt Count (150-450) x10^3/uL MPV (7.5-11.0) fL Sodium (137-145) mmol/L Potassium (3.5-5.1) mmol/L Chloride (98-107) mmol/L Carbon Dioxide (22-30) mmol/L Anion Gap (5-15) MEQ/L BUN (9-20) mg/dL Creatinine (0.66-1.25) mg/dL Estimated GFR ML/MIN Glucose (74-106) mg/dL POC Glucometer 72 L 362 H (50 to 500) mg/dL Hemoglobin A1c (4.5-6.0) % Calcium (8.4-10.2) mg/dL Total Bilirubin (0.2-1.3) mg/dL AST (17-59) U/L ALT (0-50) U/L Alkaline Phosphatase (38-126) U/L NT-Pro-B Natriuret Pep (<300) pg/mL Serum Total Protein (6.3-8.2) g/dL Albumin (3.5-5.0) g/dL Radiology Exams: Radiology Procedures Category Date Time Status ABDOMEN AND PELVIS W/0 CONTRAS [CT] Stat Exams 10/16/23 02:18 Completed HEAD WITHOUT CONTRAST [CT] Stat Exams 10/16/23 02:18 Completed KIDNEY [US] Routine Exams 10/17/23 15:20 Completed Multi-Disciplinary Progress Notes: Multi-Disciplinary Progress Notes 10/17/23 11:08 Case Management Note by Shirley Rossi S/W PATIENT- HE CONTINUES TO DENY ANY NEW NEEDS AT TIME OF DC. HE PLANS TO RETURN HOME WITH HIS FAMILY TO ASSIST HIM NEEDED Initialized on 10/17/23 11:08 - END OF NOTE 10/16/23 19:55 Respiratory Note by Lorna Jordan spoke with patient and he stated he does not wear CPAP and does not want to wear here. Stated it has been over 15 years since he has had CPAP unit. Initialized on 10/16/23 19:55 - END OF NOTE Assessment/Plan (1) Acute renal injury Current Visit: Yes Status: Acute Code(s): N17.9 - ACUTE KIDNEY FAILURE, UNSPECIFIED (2) UTI (urinary tract infection) Current Visit: Yes Status: Acute Code(s): N39.0 - URINARY TRACT INFECTION, SITE NOT SPECIFIED (3) Weakness Current Visit: Yes Status: Acute Code(s): R53.1 - WEAKNESS (4) Hyponatremia Current Visit: Yes Status: Acute Code(s): E87.1 - HYPO-OSMOLALITY AND HYPONATREMIA (5) Leukocytosis Current Visit: Yes Status: Acute Code(s): D72.829 - ELEVATED WHITE BLOOD CELL COUNT, UNSPECIFIED (6) Elevated troponin Current Visit: Yes Status: Acute Code(s): R79.89 - OTHER SPECIFIED ABNORMAL FINDINGS OF BLOOD CHEMISTRY (7) Chronic a-fib Current Visit: Yes Status: Chronic Code(s): I48.20 - CHRONIC ATRIAL FIBRILLATION, UNSPECIFIED (8) Type II diabetes mellitus Current Visit: Yes Status: Chronic Assessment & Plan: (1) Acute renal injury Current Visit: Yes Status: Acute Assessment & Plan: - creat 1.98, baseline normal - IVF NS@ 100 ml/hr - 2:2 hypovolemia, UTI, EF 33% - renal US 10/17 - Labs improving - creat 1.66 - Renal US 10/17 Impression: Minimal urinary bladder debris. Remaining renal sonogram is negative. - hold lisinopril - admits to taking increased doses of ropinirole at home- discussed to take as directed or discuss with provider - nephrology appointment made for f/u OP Code(s): N17.9 - ACUTE KIDNEY FAILURE, UNSPECIFIED (2) UTI (urinary tract infection) Current Visit: Yes Status: Acute Assessment & Plan: - ceftriaxone - IVF 10/17 -UC negative- antibiotics stopped Code(s): N39.0 - URINARY TRACT INFECTION, SITE NOT SPECIFIED (3) Weakness Current Visit: Yes Status: Acute Assessment & Plan: - 2;2 MARILU - CT head IMPRESSION: 1. No acute cerebral insult on CT bases. 2. Suspected few right high frontal subcortical hypodense foci, may be small ischemic or non specific further assessment by MRI to rule out ischemic changes is recommended if found clinically indicted. 3. Brain mild involutional changes. - MRI brain ordered and cancelled by radiology as pt has pacemaker - Neurology consult- non further recommendations per neurology, non-concerned about CT results 10/17 - improved - PT eval Code(s): R53.1 - WEAKNESS (4) Hyponatremia Current Visit: Yes Status: Acute Assessment & Plan: - Na+ 128 - IVF bolus in ER - IVF started 10/17 - Na+ 128 - IVF Code(s): E87.1 - HYPO-OSMOLALITY AND HYPONATREMIA (5) Leukocytosis Current Visit: Yes Status: Acute Assessment & Plan: - CT abd IMPRESSION: 1. Time interval complete resolution of the previously visualized bilateral pleural effusions, diffuse subcutaneous fat stranding and diffuse mesenteric fat stranding. 2. Few non-complicated colonic diverticula. 3. Redemonstration of a duplex right kidney, fatty atrophy of the pancreas and small left inguinal fat-containing hernia with no significant changes. - 2:2 UTI, MARILU 10/17 - resolved Code(s): D72.829 - ELEVATED WHITE BLOOD CELL COUNT, UNSPECIFIED (6) Elevated troponin Current Visit: Yes Status: Acute Assessment & Plan: - Trop 0.127, 0.120, 0.114- trending down - 2:2 MARILU - EKG - denies CP - BNP - Pt reports he has a cardiology appointment tomorrow - Echo 07/29/23 per old records The left ventricle is normal in size. There is borderline concentric left ventricular hypertrophy. There is hypokinesis of left ventricular septum. The left ventricular systolic function is moderately decreased. The ejection fraction is calculated to be 33%. The right ventricle has a pacing electrode. The left atrium is moderately dilated. The interatrial septum is intact. The right atrium is normal. The aortic valve opens well. It is trileaflet. There is no aortic regurgitation. There is mitral valve leaflet thickening associated with mild mitral regurgitation. There is mild tricuspid regurgitation. The right ventricular systolic pressure is calculated to be 28 mm of Mercury. The pulmonic valve is not well visualized. The aortic root is normal. There is no pericardial effusion present. IMPRESSION: 1) MODERATE DECREASE IN LEFT VENTRICULAR SYSTOLIC FUNCTION. 2) BORDERLINE CONCENTRIC LEFT VENTRICULAR HYPERTROPHY. 4) HYPOKINESIS OF THE INTERVENTRICULAR SEPTUM. 5) RIGHT VENTRICULAR PACING ELECTRODE. 6) MODERATE LEFT ATRIAL DILATATION. 7) MILD MITRAL REGURGITATION. 8) MILD TRICUSPID REGURGITATION. 9) NORMAL RIGHT VENTRICULAR SYSTOLIC PRESSURE. Code(s): R79.89 - OTHER SPECIFIED ABNORMAL FINDINGS OF BLOOD CHEMISTRY (7) Chronic a-fib Current Visit: Yes Status: Chronic Assessment & Plan: - continue eliquis - tele - f/fu with cardiology OP, appointment made Code(s): I48.20 - CHRONIC ATRIAL FIBRILLATION, UNSPECIFIED (8) Type II diabetes mellitus Current Visit: Yes Status: Chronic Assessment & Plan: - Humalog s/s, lantus, accuchecks ac/hs - consistent carb diet - A1C > 14- uncontrolled - Nutrition consult VTE: eliquis PPI: Protonix Next of kin: Heath Santos [phone] D/c plan: tomorrow Code status: full
[2023-10-18] MEDS: TYLENOL 325 MG PO PRN (00:41)
[2023-10-18 04:11] VITALS: RESP 16
[2023-10-18 04:54] LABS: Hematocrit 32.6 % (42-50); Hemoglobin 10.6 g/dL (12.5-18.0); Mean Cell Volume 84.2 fL (78-100); Mean Corpuscular Hemoglobin 27.4 pg (26-32); Mean Corpuscular Hgb Concent. 32.5 g/dL (32-36); Mean Platelet Volume 10.6 fL (7.5-11.0); Platelet Count 192 x10^3/uL (150-450); Red Blood Count 3.87 x10^6/uL (4.1-5.6); Red Cell Distribution Width 14.2 % (11.5-14.0); White Blood Count 4.6 x10^3/uL (4.0-10.5)
[2023-10-18 05:19] LABS: ALBUMIN 3.1 g/dL (3.5-5.0); BILIRUBIN,TOTAL 0.2 mg/dL (0.2-1.3); Calcium 8.3 mg/dL (8.4-10.2); Creatinine 1 1.41 mg/dL (0.66-1.25); EST GLOMERULAR FILTRATION RATE 55.3 ML/MIN; Total Protein 5.8 g/dL (6.3-8.2)
[2023-10-18 05:22] LABS: Potassium 4.3 mmol/L (3.5-5.1)
[2023-10-18 05:36] LABS: ANION GAP 8.3 MEQ/L (5-15)
[2023-10-18 11:21] VITALS: BP 133/82; PULSE 71; TEMP 97.3; O2SAT 99
--- NOTE | 2023-10-18 11:53 | PCM.DS ---
Discharge Summary Date of Admission: 10/16/23 08:50 Date of Discharge: 10/17/23 Admitting Physician: JOSEPH RACHEL MD Consults: Consults on Case 10/16/23 15:10 Consult Neurology ROUTINE 10/17/23 14:49 Nutritional Consult ROUTINE Primary Care Provider: ROGELIO CAVAZOS DO Allergies Allergies diphenhydramine [From Benadryl] Allergy (Verified 10/16/23 01:39) Difficulty Breathing Iodinated Contrast Media Allergy (Verified 10/16/23 01:39) Difficulty Breathing Hospital Summary - Hospital Course Hospital Course: 10/16/23 is a 63 year old male with PMHX of a-fib, restless legs, anxiety, depression, Gerd, OA, Type II DM, Bronchitis, COPD, Sleep apnea, arrythmia, CHF, pacemaker, cardiac ablation, HTN, MRSA of neck, cataracts, and peripheral neuropathy. He presented to our ED for evaluation of generalized weakness and abdominal pain. Patient states abdominal pain started at 11 AM yesterday. Pain has been constant. Patient has had 1 episode of stool incontinence. He was vomiting 2-3 days ago but this has resolved. Patient complains of generalized weakness and headache. No chest pain or shortness of breath. No nausea vomiting diaphoresis. Patient advised that he had COVID 3 weeks ago and has been feeling unwell since. Patient voices no other complaints or concerns at t his time. In ER he was given 1 L IVF bolus. Will continue IVF but at a reduced rate as EF is 33%. He has an appointment to f/u with cardiology tomorrow. He denies CP, SOB, abd. pain, N/V/D. 10/17/23 Pt sitting up in bed. He reports he is feeling much better. 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 Will reschedule this appointment for him. Discussed labs in detail and that A1C is > 14. He states he has been working hard on diet and glucose control. Will consult nutrition. MARILU improving. Sodium is about the same,continue IVF. US of kidneys show no acute concerns. Ceftriaxone stopped as urine culture negative. Pt denies any further concerns at this time. 10/17/23 Pt is sitting up in bed. He has been walking around in the room and doing well. Kidney function is near baseline. He would like to go home today. He has appointments to f/u with PCP, cardiology, and nephrology OP. He denies any concerns at this time. - Vitals & Intake/Output Vital Signs: Vital Signs Temperature 97.3 F 10/18/23 11:20 Pulse Rate 71 10/18/23 11:20 Respiratory Rate 16 10/18/23 11:20 Blood Pressure 133/82 10/18/23 11:20 O2 Sat by Pulse Oximetry 99 10/18/23 11:20 Intake & Output: Intake & Output 10/15/23 10/16/23 10/17/23 10/18/23 11:59 11:59 11:59 11:59 Intake Total 3710 2551 Output Total 925 1750 Balance 2785 801 Weight 77.8 kg - Lab Result Diagrams: 10/18/23 04:10 10/18/23 04:10 Lab Results-Last 24 Hrs: Lab Results-Last 24 Hours 10/17/23 10/17/23 10/18/23 Range/Units 16:15 20:54 04:10 WBC 4.6 (4.0-10.5) x10^3/uL RBC 3.87 L (4.1-5.6) x10^6/uL Hgb 10.6 L (12.5-18.0) g/dL Hct 32.6 L (42-50) % MCV 84.2 (78-100) fL MCH 27.4 (26-32) pg MCHC 32.5 (32-36) g/dL RDW 14.2 H (11.5-14.0) % Plt Count 192 (150-450) x10^3/uL MPV 10.6 (7.5-11.0) fL Sodium (137-145) mmol/L Potassium (3.5-5.1) mmol/L Chloride (98-107) mmol/L Carbon Dioxide (22-30) mmol/L Anion Gap (5-15) MEQ/L BUN (9-20) mg/dL Creatinine (0.66-1.25) mg/dL Estimated GFR ML/MIN Glucose (74-106) mg/dL POC Glucometer 201 H 174 H (74 to 106) mg/dL Calcium (8.4-10.2) mg/dL Total Bilirubin (0.2-1.3) mg/dL AST (17-59) U/L ALT (0-50) U/L Alkaline Phosphatase (38-126) U/L Serum Total Protein (6.3-8.2) g/dL Albumin (3.5-5.0) g/dL 10/18/23 10/18/23 10/18/23 Range/Units 04:10 04:13 05:26 WBC (4.0-10.5) x10^3/uL RBC (4.1-5.6) x10^6/uL Hgb (12.5-18.0) g/dL Hct (42-50) % MCV (78-100) fL MCH (26-32) pg MCHC (32-36) g/dL RDW (11.5-14.0) % Plt Count (150-450) x10^3/uL MPV (7.5-11.0) fL Sodium 130 L (137-145) mmol/L Potassium 4.3 (3.5-5.1) mmol/L Chloride 103 (98-107) mmol/L Carbon Dioxide 23 (22-30) mmol/L Anion Gap 8.3 (5-15) MEQ/L BUN 33 H (9-20) mg/dL Creatinine 1.41 H (0.66-1.25) mg/dL Estimated GFR 55.3 ML/MIN Glucose 53 L (74-106) mg/dL POC Glucometer 55 L 67 L (74 to 106) mg/dL Calcium 8.3 L (8.4-10.2) mg/dL Total Bilirubin 0.20 (0.2-1.3) mg/dL AST 31 (17-59) U/L ALT 24 (0-50) U/L Alkaline Phosphatase 96 (38-126) U/L Serum Total Protein 5.8 L (6.3-8.2) g/dL Albumin 3.1 L (3.5-5.0) g/dL 10/18/23 10/18/23 Range/Units 06:52 10:57 WBC (4.0-10.5) x10^3/uL RBC (4.1-5.6) x10^6/uL Hgb (12.5-18.0) g/dL Hct (42-50) % MCV (78-100) fL MCH (26-32) pg MCHC (32-36) g/dL RDW (11.5-14.0) % Plt Count (150-450) x10^3/uL MPV (7.5-11.0) fL Sodium (137-145) mmol/L Potassium (3.5-5.1) mmol/L Chloride (98-107) mmol/L Carbon Dioxide (22-30) mmol/L Anion Gap (5-15) MEQ/L BUN (9-20) mg/dL Creatinine (0.66-1.25) mg/dL Estimated GFR ML/MIN Glucose (74-106) mg/dL POC Glucometer 94 201 H (74 to 106) mg/dL Calcium (8.4-10.2) mg/dL Total Bilirubin (0.2-1.3) mg/dL AST (17-59) U/L ALT (0-50) U/L Alkaline Phosphatase (38-126) U/L Serum Total Protein (6.3-8.2) g/dL Albumin (3.5-5.0) g/dL Micro Results-Entire Visit: Microbiology 10/16/23 02:01 Urine Culture - Final Clean Catch Midstream MIXED PJ; 3 OR MORE TYPES. NO PREDOMINANT ORGANISM. NO FURTHER WORKUP. PLEASE RESUBMIT IF CLINICALLY INDICATED. Accuchecks Date 10/18/23 Date 10/18/23 Date 10/17/23 Date 10/17/23 Time 11:20 Time 07:18 Time 21:00 - Radiology Exams Ordered Rad Exams-Entire Visit: Radiology Procedures Category Date Time Status KIDNEY [US] Routine Exams 10/17/23 15:20 Completed - Procedures and Test Procedures and Tests throughout Hospitalization: Therapy Orders & Screens 10/16/23 15:00 PT Eval & Treat ( Order) ONCE Reason for Eval:: weakness Diagnosis: Acute renal injury, elevated trop, hyponatremia 10/17/23 14:56 PT Eval & Treat ( Order) ONCE Reason for Eval:: weakness on admission Diagnosis: Acute renal injury, elevated trop, hyponatremia Discharge Exam General Appearance: no apparent distress, alert Neurologic Exam: alert, oriented x 3, cooperative, normal mood/affect, nml cerebellar function, sensation nml, No motor deficits Eye Exam: PERRL, EOMI, eyes nml inspection Ears, Nose, Throat Exam: normal ENT inspection, pharynx normal, moist mucous membranes Neck Exam: normal inspection, non-tender, supple, full range of motion Respiratory Exam: normal breath sounds, lungs clear, No respiratory distress Cardiovascular Exam: regular rate/rhythm, normal heart sounds Gastrointestinal/Abdomen Exam: soft, No tenderness, No mass Male Genitalia Exam: deferred Rectal Exam: deferred Back Exam: normal inspection, normal range of motion, No CVA tenderness, No vertebral tenderness Extremity Exam: normal inspection, normal range of motion Skin Exam: normal color, warm, dry Final Diagnosis/Problem List - Final Discharge Diagnosis/Problem (1) Acute renal injury Current Visit: Yes Status: Acute Code(s): N17.9 - ACUTE KIDNEY FAILURE, UNSPECIFIED (2) UTI (urinary tract infection) Current Visit: Yes Status: Acute Code(s): N39.0 - URINARY TRACT INFECTION, SITE NOT SPECIFIED (3) Weakness Current Visit: Yes Status: Acute Code(s): R53.1 - WEAKNESS (4) Hyponatremia Current Visit: Yes Status: Acute Code(s): E87.1 - HYPO-OSMOLALITY AND HYPONATREMIA (5) Leukocytosis Current Visit: Yes Status: Acute Code(s): D72.829 - ELEVATED WHITE BLOOD CELL COUNT, UNSPECIFIED (6) Elevated troponin Current Visit: Yes Status: Acute Code(s): R79.89 - OTHER SPECIFIED ABNORMAL FINDINGS OF BLOOD CHEMISTRY (7) Chronic a-fib Current Visit: Yes Status: Chronic Code(s): I48.20 - CHRONIC ATRIAL FIBRILLATION, UNSPECIFIED (8) Type II diabetes mellitus Current Visit: Yes Status: Chronic Assessment & Plan: (1) Acute renal injury Current Visit: Yes Status: Acute Assessment & Plan: - creat 1.98, baseline normal - IVF NS@ 100 ml/hr - 2:2 hypovolemia, UTI, EF 33% - renal US 10/17 - Labs improving - creat 1.66 - Renal US 10/17 Impression: Minimal urinary bladder debris. Remaining renal sonogram is negative. - hold lisinopril - admits to taking increased doses of ropinirole at home- discussed to take as directed or discuss with provider - nephrology appointment made for f/u OP 10/18 -Creat 1.41 improved Code(s): N17.9 - ACUTE KIDNEY FAILURE, UNSPECIFIED (2) UTI (urinary tract infection) Current Visit: Yes Status: Acute Assessment & Plan: - ceftriaxone - IVF 10/17 -UC negative- antibiotics stopped Code(s): N39.0 - URINARY TRACT INFECTION, SITE NOT SPECIFIED (3) Weakness Current Visit: Yes Status: Acute Assessment & Plan: - 2;2 MARILU - CT head IMPRESSION: 1. No acute cerebral insult on CT bases. 2. Suspected few right high frontal subcortical hypodense foci, may be small ischemic or non specific further assessment by MRI to rule out ischemic changes is recommended if found clinically indicted. 3. Brain mild involutional changes. - MRI brain ordered and cancelled by radiology as pt has pacemaker - Neurology consult- non further recommendations per neurology, non-concerned about CT results 10/17 - improved - PT eval 10/18 - resolved Code(s): R53.1 - WEAKNESS (4) Hyponatremia Current Visit: Yes Status: Acute Assessment & Plan: - Na+ 128 - IVF bolus in ER - IVF started 10/17 - Na+ 128 - IVF 10/18 - Na+ 130 Code(s): E87.1 - HYPO-OSMOLALITY AND HYPONATREMIA (5) Leukocytosis Current Visit: Yes Status: Acute Assessment & Plan: - CT abd IMPRESSION: 1. Time interval complete resolution of the previously visualized bilateral pleural effusions, diffuse subcutaneous fat stranding and diffuse mesenteric fat stranding. 2. Few non-complicated colonic diverticula. 3. Redemonstration of a duplex right kidney, fatty atrophy of the pancreas and small left inguinal fat-containing hernia with no significant changes. - 2:2 UTI, MARILU 10/17 - resolved Code(s): D72.829 - ELEVATED WHITE BLOOD CELL COUNT, UNSPECIFIED (6) Elevated troponin Current Visit: Yes Status: Acute Assessment & Plan: - Trop 0.127, 0.120, 0.114- trending down - 2:2 MARILU - EKG - denies CP - BNP - Pt reports he has a cardiology appointment tomorrow - Echo 07/29/23 per old records The left ventricle is normal in size. There is borderline concentric left ventricular hypertrophy. There is hypokinesis of left ventricular septum. The left ventricular systolic function is moderately decreased. The ejection fraction is calculated to be 33%. The right ventricle has a pacing electrode. The left atrium is moderately dilated. The interatrial septum is intact. The right atrium is normal. The aortic valve opens well. It is trileaflet. There is no aortic regurgitation. There is mitral valve leaflet thickening associated with mild mitral regurgitation. There is mild tricuspid regurgitation. The right ventricular systolic pressure is calculated to be 28 mm of Mercury. The pulmonic valve is not well visualized. The aortic root is normal. There is no pericardial effusion present. IMPRESSION: 1) MODERATE DECREASE IN LEFT VENTRICULAR SYSTOLIC FUNCTION. 2) BORDERLINE CONCENTRIC LEFT VENTRICULAR HYPERTROPHY. 4) HYPOKINESIS OF THE INTERVENTRICULAR SEPTUM. 5) RIGHT VENTRICULAR PACING ELECTRODE. 6) MODERATE LEFT ATRIAL DILATATION. 7) MILD MITRAL REGURGITATION. 8) MILD TRICUSPID REGURGITATION. 9) NORMAL RIGHT VENTRICULAR SYSTOLIC PRESSURE. Code(s): R79.89 - OTHER SPECIFIED ABNORMAL FINDINGS OF BLOOD CHEMISTRY (7) Chronic a-fib Current Visit: Yes Status: Chronic Assessment & Plan: - continue eliquis - tele - f/fu with cardiology OP, appointment made Code(s): I48.20 - CHRONIC ATRIAL FIBRILLATION, UNSPECIFIED (8) Type II diabetes mellitus Current Visit: Yes Status: Chronic Assessment & Plan: - Humalog s/s, lantus, accuchecks ac/hs - consistent carb diet - A1C > 14- uncontrolled - Nutrition consult - Discharge Discharge Date: 10/18/23 Disposition: Home, Self-Care Condition: Stable Prescriptions: Continue Duloxetine HCl [Cymbalta] 60 mg PO BID Omeprazole 40 mg PO DAILY PRN PRN Reason: Indigestion Atorvastatin Calcium [Lipitor 40Mg] 40 mg PO HS Trazodone HCl 50 mg [Desyrel 50 mg] 50 mg PO HS PRN PRN Reason: Insomnia Ropinirole 2Mg [Requip 2Mg Tab] 2 mg PO HS Insulin Aspart [NovoLOG Insulin] 1 unit SQ UD Insulin Glargine [Lantus Insulin] 50 unit SQ BID Spironolactone 25 mg [Aldactone 25 MG] 25 mg PO DAILY 30 Days #30 tablet Apixaban [Eliquis 2.5 mg Tablet] 5 mg PO BID 30 Days #60 tablet Empagliflozin [Jardiance] 10 mg PO DAILY 30 Days #30 tablet Furosemide 40 mg [Lasix 40 MG] 40 mg PO DAILY 30 Days #30 tablet Lisinopril 10 mg [Zestril 10 MG] 10 mg PO DAILY Carvedilol 3.125 mg [Coreg 3.125 MG] 12.5 mg PO BID Potassium Chloride 20 meq PO DAILY Instructions: Dehydration, Adult (DC) Follow up with: ROGELIO CAVAZOS DO [Primary Care Provider] - 10/22/23 11:15 am HUBER MAYEN [CONSULTING PHYSICIAN] - 10/28/23 2:40 pm JUNE PIHLLIPS PA [NON-STAFF PHY W/O PRIVILEGES] - 10/25/23 9:00 am
== END 2023-10-18 13:20 | disposition home or self-care (01) ==
LOC: ED 23:14 → MED SURG 10-16 08:50
PROVIDERS: ADMIT Internal Medicine; ATTEND Internal Medicine
DX: N17.9 Acute kidney failure, unspecified (principal); N39.0 Urinary tract infection, site not specified; R53.1 Weakness; E87.1 Hypo-osmolality and hyponatremia; D72.829 Elevated white blood cell count, unspecified; R79.89 Other specified abnormal findings of blood chemistry; I48.20 Chronic atrial fibrillation, unspecified; E11.9 Type 2 diabetes mellitus without complications; I11.0 Hypertensive heart disease with heart failure; I50.9 Heart failure, unspecified; Z79.01 Long term (current) use of anticoagulants; Z79.899 Other long term (current) drug therapy; Z20.828 Contact with and (suspected) exposure to other viral communicable diseases; Z86.16 Personal history of COVID-19; Z59.12 Inadequate housing utilities
CPT/HCPCS: 0241U; 36000; 36415; 70450; 74176; 76770; 80053; 81001; 82947; 83036; 83880; 84484; 85025; 85027; 87086; 93005; 93041; 93268; 94760; 96360; 99284; J0696; J1815; J1817; Q3014; A9270-GY; G0378

== ENCOUNTER 2024-01-29 10:08 | Emergency (ER) | payer MEDICARE ==
[2024-01-29 10:44] VITALS: TEMP 98.3
[2024-01-29 11:20] VITALS: O2SAT 97
[2024-01-29 11:31] LABS: BASOPHIL % 0.6 % (0.0-0.4); Basophil (Absolute #) 0.03 x10^3/uL (0-0.4); Eosinophil % 1.1 % (0.00-5.0); Eosinophil (Absolute #) 0.05 x10^3/uL (0-0.5); Hematocrit 29.3 % (42-50); Hemoglobin 9.4 g/dL (12.5-18.0); IMMATURE GRAN # 0.01 x10^3u/L (0.00-0.03); IMMATURE GRAN % 0.2 % (0.00-0.4); Lymphocyte (Absolute #) 0.92 x10^3/uL (1.0-4.6); Lymphocytes % 19.8 % (24.0-44.0); Mean Cell Volume 86.2 fL (78-100); Mean Corpuscular Hemoglobin 27.6 pg (26-32); Mean Corpuscular Hgb Concent. 32.1 g/dL (32-36); Mean Platelet Volume 9.4 fL (7.5-11.0); Monocyte (Absolute #) 0.33 x10^3/uL (0.0-1.3); Monocytes % 7.1 % (0.0-12.0); Neutrophil % 71.2 % (36.0-66.0); Platelet Count 224 x10^3/uL (150-450); Red Cell Distribution Width 13.7 % (11.5-14.0); White Blood Count 4.6 x10^3/uL (4.0-10.5)
--- NOTE | 2024-01-29 11:43 | PCM.CONS ---
History of Present Illness - Consult Date of Consultation Date: 01/29/24 Consulting Provider: JOSE POSEY MD - [facility] History of Present Illness: is a 63 year old maleWith left index finger infection. He had had a previous MRSA in the send later he was stuck by [facility] catfish. [facility] Had some debridement and antibiotics.He could not afford IV antibiotics later.He has had previous amputations of partial index finger and another finger on his right hand.He is diabetic. He said that he saw the flexor tendon ruptureLast week And cannot flex the finger now. He does not have pain with it. He says he has some sensation.He is currently on antibiotics.He came to the emergency room and asked that we would amputate his finger for him Medications & Allergies Home Medications: Home Medication List Atorvastatin Calcium [Lipitor 40Mg] 40 mg PO HS 07/28/23 [History Confirmed 01/29/24] Duloxetine HCl [Cymbalta] 60 mg PO BID 07/28/23 [History Confirmed 01/29/24] Insulin Aspart [NovoLOG Insulin] 3 unit SQ AC 07/28/23 [History Confirmed 01/29/24] Insulin Glargine [Lantus Insulin] 20 unit SQ BID 07/28/23 [History Confirmed 01/29/24] Omeprazole 40 mg PO DAILY PRN 07/28/23 [History Confirmed 01/29/24] Ropinirole 2Mg [Requip 2Mg Tab] 2 mg PO HS 07/28/23 [History Confirmed 01/29/24] Trazodone HCl 50 mg [Desyrel 50 mg] 50 mg PO HS PRN 07/28/23 [History Confirmed 01/29/24] Apixaban [Eliquis 2.5 mg Tablet] 5 mg PO BID 30 Days #60 tablet 07/30/23 [Rx Confirmed 01/29/24] Spironolactone 25 mg [Aldactone 25 MG] 25 mg PO DAILY 30 Days #30 tablet 07/30/23 [Rx Confirmed 01/29/24] Furosemide 40 mg [Lasix 40 MG] 40 mg PO DAILY 30 Days #30 tablet 07/31/23 [Rx Confirmed 01/29/24] Carvedilol 3.125 mg [Coreg 3.125 MG] 12.5 mg PO BID 10/16/23 [History Confirmed 01/29/24] Potassium Chloride 20 meq PO DAILY 10/16/23 [History Confirmed 01/29/24] Empagliflozin [Jardiance] 25 mg PO DAILY 01/29/24 [History Confirmed 01/29/24] lisinopriL [Zestril] 2.5 mg PO DAILY 01/29/24 [History Confirmed 01/29/24] Allergies/Adverse Reactions: Allergies Allergy/AdvReac Type Severity Reaction Status Date / Time diphenhydramine Allergy Difficulty Verified 01/29/24 10:20 [From Benadryl] Breathing Iodinated Contrast Media Allergy Difficulty Verified 01/29/24 10:20 Breathing - Past Medical History Past Medical History: Yes Neurological History: Peripheral Neuropathy ENT History: Cataracts Cardiac History: Arrhythmia, Congestive Heart Failure, High Cholesterol, Hypertension Respiratory History: Bronchitis, CHF, COPD, Sleep Apnea Endocrine Medical History: Diabetes Type II Musculoskelatal History: Arthritis, Osteoarthritis, Other GI Medical History: GERD, Gallbladder Disease History: Renal Disease Pyscho-Social History: Anxiety, Depression Male Reproductive Disorders: No Pertinent History Comment: a.fib, restless leg, bulging discs cervical spine, carpal tunnel - Past Surgical History Past Surgical History: Yes Neuro Surgical History: No Pertinent History Cardiac History: Pacemaker Respiratory Surgery: No Pertinent History GI Surgical History: Cholecystectomy Genitourinary Surgical Hx: No Pertinent History Musculskeletal Surgical Hx: Amputation Male Surgical History: No Pertinent History Other Surgical History: cardiac ablation, 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 - Social History Smoking Status: Never smoker Exposure to second hand smoke: No Alcohol: None Drug Use: none - Social Determinants of Health Will the patient participate in the screening: Declined to provide Do you worry about a steady place to live?: No In the past 12 months,have you had to go without utilities?: No Have you or anyone in your house had to go without enough: No Transportation Issues: No Has anyone in your support network made you feel unsafe?: No Does the patient want assistance with any of the above?: No Comment: pt has no running water, would like assistance - Nursing Vital Signs Nursing Vital Signs: Vital Signs - 24 hr Temp Pulse Resp BP BP Pulse Ox 01/29/24 11:02 70 18 147/79 97 01/29/24 10:31 75 18 166/79 98 01/29/24 10:10 98.3 F 85 18 152/80 99 - Physical Exam SpO2: 97 - Additional Findings Additional Findings: Pleasant white male, no apparent distress, alert and orient x 3 Normal height and weight Left index finger showsModerate swelling with erythema. The finger is held in the neutral extended position.Meter skin loss over the volar aspect of the proximal phalanxWith a ruptured flexor tendon seen in the wound which retracts when patient tries to flex his digit Patient cannot actively flex the DIP or PIP joints. He can extend the joint. There is minimal purulence but some necrotic skin around the edges Patient has mild sensation of the tip of the digit X-ray of the left hand reviewed by me shows no foreign bodies or bony destruction - Narrative Narrative Physical Exam: Ortho Physical Exam Assessment/Plan (1) Laceration of flexor muscle, fascia and tendon of left index finger at forearm level, initial encounter Current Visit: Yes Status: Acute Assessment & Plan: Patient has aFlexor tendon infection causing rupture of the tendon.Explained to patient I think he should see a hand surgeon before proceeding with amputation As it may be more preferable to fuse in a position where he could use to pinch.The emergency room will arrange for patient to see Dr. Garrido at [facility] to discuss this Versus amputation Code(s): S56.122A - LACERAT FLEXOR MUSC/FASC/TEND L IDX FNGR AT FORARM LV, INIT Results - Labs Lab/Micro Results: Lab Results-Last 24 Hours 01/29/24 01/29/24 Range/Units 11:20 11:22 WBC 4.6 (4.0-10.5) x10^3/uL RBC 3.40 L (4.1-5.6) x10^6/uL Hgb 9.4 L (12.5-18.0) g/dL Hct 29.3 L (42-50) % MCV 86.2 (78-100) fL MCH 27.6 (26-32) pg MCHC 32.1 (32-36) g/dL RDW 13.7 (11.5-14.0) % Plt Count 224 (150-450) x10^3/uL MPV 9.4 (7.5-11.0) fL Gran % 71.2 H (36.0-66.0) % Immature Gran % (Auto) 0.2 (0.00-0.4) % Nucleat RBC Rel Count 0.0 (0.00-0.1) % Eos # (Auto) 0.05 (0-0.5) x10^3/uL Immature Gran # (Auto) 0.01 (0.00-0.03) x10^3u/L Absolute Lymphs (auto) 0.92 L (1.0-4.6) x10^3/uL Absolute Monos (auto) 0.33 (0.0-1.3) x10^3/uL Absolute Nucleated RBC 0.00 (0.00-0.01) x10^3u/L Lymphocytes % 19.8 L (24.0-44.0) % Monocytes % 7.1 (0.0-12.0) % Eosinophils % 1.1 (0.00-5.0) % Basophils % 0.6 (0.0-0.4) % Absolute Granulocytes 3.30 (1.4-6.9) x10^3/uL Basophils # 0.03 (0-0.4) x10^3/uL Lactic Acid 1.6 (0.4-2.0) - Radiology Impressions Radiology Exams & Impressions: Radiology Procedures Category Date Time Status HAND (MINIMUM 3 VIEWS) Stat Exams 01/29/24 10:56 Taken
[2024-01-29 11:44] LABS: ALBUMIN 3.3 g/dL (3.5-5.0); ANION GAP 13.5 MEQ/L (5-15); BILIRUBIN,TOTAL 0.5 mg/dL (0.2-1.3); Calcium 8.1 mg/dL (8.4-10.2); Creatinine 1 1.96 mg/dL (0.66-1.25); EST GLOMERULAR FILTRATION RATE 37.3 ML/MIN; Potassium 3.5 mmol/L (3.5-5.1); Total Protein 6.8 g/dL (6.3-8.2)
--- NOTE | 2024-01-29 11:53 | XRAY ---
Indication: Swelling. Infection. Comparison: None 3 view left hand demonstrates diffuse 2nd finger soft tissue swelling and mild 1st metacarpal multangular scaphoid degenerative changes. No other bony, articular, or soft tissue abnormalities.
[2024-01-29] MEDS ORDERED: KEFZOL 1 GM ONE (12:09)
[2024-01-29] MEDS: CEFAZOLIN 2 GM-D5W BAG** 2 GM/50 ML ML IV STA (12:11)
[2024-01-29] MEDS: KEFZOL 1 GM IM ONE (12:13)
[2024-01-29] MEDS ORDERED: CLEOCIN 150 MG CAPSULE ONE (12:19)
[2024-01-29] MEDS: CLEOCIN 150 MG CAPSULE PO ONE (12:20)
--- NOTE | 2024-01-29 13:25 | ERPHSYRPT ---
- History of Present Illness Time Seen by Provider: 01/29/24 10:14 Source: patient Exam Limitations: no limitations Patient Subjective Stated Complaint: C/O Increased swelling and decreased mobility to left hand, 2nd digit for the past 4-5 days related to surgical wound from 12/25/23. Triage Nursing Assessment: Patient ambulated back to ER without difficulteis. Patient's 2nd digit on his left hand is wrapped in tape. He is alert and oriented. No SOB. BLE noted to have pitting edema. LUE is swollen. Tape removed from left hand/finger and a wound is noted underneath; patient reports this as his surgical site from 12/25/23 at [facility] by a Dr. Pressley. No current drainage from area. Area measures 3.4cm X 1.7cm. Depth not determined at this t rashard. Some slough present. Area inside of open wound noted to have movement when moving other digits of hand; possible tendon. Surrounding skin is swollen/tight and red. Physician History: 63-year-old male with multiple medical problems including coronary artery disease, congestive heart failure, atrial fibrillation with pacemaker on Eliquis, diabetes mellitus, hypertension, CKD couple multiple amputations on the right hand presented in the ER with open wound left index finger proximal phalanx. Patient reports he got stung by catfish on December 24, was evaluated and wound exploration done by Dr. Pressley at [facility] in [place], was recommended to have IV antibiotics but could not afford it. Patient reports he had a open wound, few days ago his exposed tendon broke and now he cannot flex his finger with increased swelling and redness for the last 3 to 4 days. No fever or chills reported. Denies any pain. Swelling of the finger, hand dorsum. Allergies/Adverse Reactions: diphenhydramine [From Benadryl] Allergy (Verified 01/29/24 10:20) Difficulty Breathing Iodinated Contrast Media Allergy (Verified 01/29/24 10:20) Difficulty Breathing Home Medications: Atorvastatin Calcium [Lipitor 40Mg] 40 mg PO HS 07/28/23 [History] Duloxetine HCl [Cymbalta] 60 mg PO BID 07/28/23 [History] Insulin Aspart [NovoLOG Insulin] 3 unit SQ AC 07/28/23 [History] Insulin Glargine [Lantus Insulin] 20 unit SQ BID 07/28/23 [History] Omeprazole 40 mg PO DAILY PRN 07/28/23 [History] Ropinirole 2Mg [Requip 2Mg Tab] 2 mg PO HS 07/28/23 [History] Trazodone HCl 50 mg [Desyrel 50 mg] 50 mg PO HS PRN 07/28/23 [History] Carvedilol 3.125 mg [Coreg 3.125 MG] 12.5 mg PO BID 10/16/23 [History] Potassium Chloride 20 meq PO DAILY 10/16/23 [History] Empagliflozin [Jardiance] 25 mg PO DAILY 01/29/24 [History] lisinopriL [Zestril] 2.5 mg PO DAILY 01/29/24 [History] Hx Tetanus, Diphtheria Vaccination/Date Given: Yes Hx Influenza Vaccination/Date Given: Yes Hx Pneumococcal Vaccination/Date Given: Yes Immunizations Up to Date: Yes Travel Risk - International Travel Have you traveled outside of the country in past 3 weeks: No - Emerging Infectious Disease Are you exhibiting symptoms associated with any current EIDs: No - Review of Systems Constitutional: No Symptoms Ears, Nose, & Throat: No Symptoms Respiratory: No Symptoms Cardiac: No Symptoms Abdominal/Gastrointestinal: No Symptoms Genitourinary Symptoms: No Symptoms Musculoskeletal: Injury Skin: Skin Lesions Neurological: No Symptoms Hematologic/Lymphatic: No Symptoms Immunological/Allergic: No Symptoms - Past Medical History Pertinent Past Medical History: Yes Neurological History: Peripheral Neuropathy ENT History: Cataracts Cardiac History: Arrhythmia, Congestive Heart Failure, High Cholesterol, Hypertension Respiratory History: Bronchitis, CHF, COPD, Sleep Apnea Endocrine Medical History: Diabetes Type II Musculoskeletal History: Arthritis, Osteoarthritis, Other GI Medical History: GERD, Gallbladder Disease History: Renal Disease Psycho-Social History: Anxiety, Depression Male Reproductive Disorders: No Pertinent History Other Medical History: a.fib, restless leg, bulging discs cervical spine, carpal tunnel - Past Surgical History Past Surgical History: Yes Neuro Surgical History: No Pertinent History Cardiac: Pacemaker Respiratory: No Pertinent History Gastrointestinal: Cholecystectomy Genitourinary: No Pertinent History Musculoskeletal: Amputation Male Surgical History: No Pertinent History Other Surgical History: cardiac ablation, 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 - Social History Smoking Status: Never smoker Exposure to second hand smoke: No Drug Use: none Patient Lives Alone: No - Social Determinants of Health Will the patient participate in the screening: Declined to provide Do you worry about a steady place to live?: No In the past 12 months,have you had to go without utilities?: No Transportation Issues: No Has anyone in your support network made you feel unsafe?: No Have you or anyone in your house had to go without enough: No Comment: pt has no running water, would like assistance - Nursing Vital Signs Nursing Vital Signs: Initial Vital Signs Temperature 98.3 F 01/29/24 10:10 Pulse Rate 85 01/29/24 10:10 Respiratory Rate 18 01/29/24 10:10 Blood Pressure 152/80 01/29/24 10:10 O2 Sat by Pulse Oximetry 99 01/29/24 10:10 Pain Scale Pain Intensity 0 - Physical Exam General Appearance: no apparent distress, alert Eyes, Ears, Nose, Throat Exam: pharynx normal Neck Exam: normal inspection, full range of motion Cardiovascular/Respiratory Exam: normal breath sounds, regular rate/rhythm Wrist Exam: normal inspection, non-tender, no evidence of injury, normal ROM Hand Exam: limited ROM, swelling (Diffuse swelling of left index finger and darya sum of hand. Open wound index finger proximal phalanx palmar aspect with minimal sloughing and exposed flexor tendon which moves with attempt to flex his finger. Normal flexion at interphalangeal joints. Decreased sensation in the left index finger.), No soft tissue tenderness Neuro/Tendon Exam: sensory deficit, tendon function deficit, tendon injury visualized, No normal sensation, No normal motor functions, No normal tendon functions Mental Status Exam: alert, oriented x 3, cooperative Skin Exam: normal color SpO2 Interpretation: normal SpO2: 97 O2 Delivery: Room Air Ordered Tests: Active Orders 24 hr Category Date Time Status HAND (MINIMUM 3 VIEWS) Stat Exams 01/29/24 10:56 Completed BLOOD CULTURE Stat Lab 01/29/24 11:26 Received CBC W DIFF Stat Lab 01/29/24 11:22 Completed CMP Stat Lab 01/29/24 11:22 Completed Lactic Acid Stat Lab 01/29/24 11:20 Completed Medication Summary Discontinued Medications Generic Name Dose Route Start Last Admin Trade Name Freq PRN Reason Stop Dose Admin Cefazolin Sodium 2 g 01/29/24 12:07 01/29/24 12:13 Cefazolin Sodium 1 Gm Vial IM 01/29/24 12:08 2 g STAT ONE Administration Cefazolin Sodium Confirm 01/29/24 12:09 Cefazolin Sodium 1 Gm Vial Administered 01/29/24 12:10 Dose 2 g .ROUTE .STK-MED ONE Clindamycin HCl 300 mg 01/29/24 12:17 01/29/24 12:20 Clindamycin Hcl 150 Mg Capsule PO 01/29/24 12:18 300 mg STAT ONE Administration Clindamycin HCl Confirm 01/29/24 12:19 Clindamycin Hcl 150 Mg Capsule Administered 01/29/24 12:20 Dose 300 mg .ROUTE .STK-MED ONE Cefazolin Sodium/Dextrose 2 gm in 50 mls @ 100 mls/hr 01/29/24 12:00 01/29/24 12:11 Cefazolin 2 Gm-D5w Bag IV 01/29/24 12:29 Not Given STAT STA Lab/Rad Data: Laboratory Result Diagrams 01/29/24 11:22 01/29/24 11:22 Laboratory Results 01/29/24 01/29/24 01/29/24 Range/Units 11:22 11:22 11:20 WBC 4.6 (4.0-10.5) x10^3/uL RBC 3.40 L (4.1-5.6) x10^6/uL Hgb 9.4 L (12.5-18.0) g/dL Hct 29.3 L (42-50) % MCV 86.2 (78-100) fL MCH 27.6 (26-32) pg MCHC 32.1 (32-36) g/dL RDW 13.7 (11.5-14.0) % Plt Count 224 (150-450) x10^3/uL MPV 9.4 (7.5-11.0) fL Gran % 71.2 H (36.0-66.0) % Immature Gran % (Auto) 0.2 (0.00-0.4) % Nucleat RBC Rel Count 0.0 (0.00-0.1) % Eos # (Auto) 0.05 (0-0.5) x10^3/uL Immature Gran # (Auto) 0.01 (0.00-0.03) x10^3u/L Absolute Lymphs (auto) 0.92 L (1.0-4.6) x10^3/uL Absolute Monos (auto) 0.33 (0.0-1.3) x10^3/uL Absolute Nucleated RBC 0.00 (0.00-0.01) x10^3u/L Lymphocytes % 19.8 L (24.0-44.0) % Monocytes % 7.1 (0.0-12.0) % Eosinophils % 1.1 (0.00-5.0) % Basophils % 0.6 (0.0-0.4) % Absolute Granulocytes 3.30 (1.4-6.9) x10^3/uL Basophils # 0.03 (0-0.4) x10^3/uL Sodium 135 (135-145) mmol/L Potassium 3.5 (3.5-5.1) mmol/L Chloride 106 (98-107) mmol/L Carbon Dioxide 20 L (22-30) mmol/L Anion Gap 13.5 (5-15) MEQ/L BUN 25 H (9-20) mg/dL Creatinine 1.96 H (0.66-1.25) mg/dL Estimated GFR 37.3 ML/MIN Glucose 326 H (74-106) mg/dL Lactic Acid 1.6 (0.4-2.0) Calcium 8.1 L (8.4-10.2) mg/dL Total Bilirubin 0.50 (0.2-1.3) mg/dL AST 36 (17-59) U/L ALT 34 (0-50) U/L Alkaline Phosphatase 183 H (38-126) U/L Serum Total Protein 6.8 (6.3-8.2) g/dL Albumin 3.3 L (3.5-5.0) g/dL - Progress Progress: unchanged Progress Note: 01/29/24 13:22 63-year-old is evaluated in the ER for left index finger wound for over a month with increased swelling lately and also recently flexor tendon full-thickness laceration. Thoroughly cleaned. Decree sensation distally. 8 patient finger and neutrally extended position. No active flexion. Intact extension. Visible flexor tendon. Discussed with Dr. Rodas orthopedics who has seen patient, recommended hand surgery consult. I have discussed with Dr. Ho, reviewed history, recommended giving Kefzol and starting on Bactrim and outpatient follow-up. X-rays did not show any signs of osteomyelitis. Patient workup showed normal white count and lactate. Has CKD with a creatinine of 1.9. Glucose in 300s. Since patient has kidney failure I would start him on clindamycin which would cover MRSA which patient does have history in the past. Dry dressing and Coban applied without splint per hand surgery recommendations. Patient glucose is in the 300s, recommended increasing dose of Lantus and strict monitoring which would not only help control glucose but also will help healing the wound. We have called back Dr. Ho's office and outpatient appointment is made. Discussed signs symptoms of worsening needing return to ER which she seems understanding. Discussed with Dr.: Other ([facility]/Dr. Ho hand surgery.) Counseled pt/family regarding: lab results, diagnosis, need for follow-up, rad results Medical Desision Making - Discussion of managment Care discussed with:: specialist Reviewed:: Test results Agreed on:: Treatment plan Will see patient: in ED (Dr. Rodas orthopedist/Dr. Ho hand surgery) - Diagnostic Testing Diagnostic test were ordered, analyzed, and reviewed by me: Yes Radiological Interpretation: Interpreted by me, Reviewed by me - Risk of complications The pt has a mod risk of morbidity or mortality based on: Need for prescription drug management - Departure Departure Disposition: Home Clinical Impression: Laceration of flexor muscle, fascia and tendon of left index finger at forearm level, initial encounter, Cellulitis of hand, left, CKD (chronic kidney disease), Hyperglycemia Condition: Stable Critical Care Time: No Referrals: ROGELIO CAVAZOS DO [Primary Care Provider] - Follow up with PCP 1 day CAPRICE HO [NON-STAFF PHY W/O PRIVILEGES] - Follow up other (follow up as recommended) Instructions: Wound Care (DC), High Blood Sugar, Adult ED Additional Instructions: monitor glucose regularly and increase thde dose of Lantus to 55 units and low carb diet. outparient follow up with hand surgery. return for increased swelling/redness /discharge /fever etc. Prescriptions: clindamycin HCL [Clindamycin HCl] 300 mg PO QID 7 Days #28 cap
[2024-01-29 13:55] VITALS: BP 166/97; PULSE 80; RESP 16
== END 2024-01-29 13:55 | disposition home or self-care (01) ==
LOC: ED 10:08
DX: S66.121A Laceration of flexor muscle, fascia and tendon of left index finger at wrist and hand level, initial encounter (principal); L03.114 Cellulitis of left upper limb; E11.65 Type 2 diabetes mellitus with hyperglycemia; E11.22 Type 2 diabetes mellitus with diabetic chronic kidney disease; I13.0 Hypertensive heart and chronic kidney disease with heart failure and stage 1 through stage 4 chronic kidney disease, or unspecified chronic kidney disease; N18.9 Chronic kidney disease, unspecified; I50.9 Heart failure, unspecified; E11.42 Type 2 diabetes mellitus with diabetic polyneuropathy; Z79.4 Long term (current) use of insulin; Z79.84 Long term (current) use of oral hypoglycemic drugs; Z79.899 Other long term (current) drug therapy; Z59.12 Inadequate housing utilities
CPT/HCPCS: 36415; 73130; 80053; 83605; 85025; 87040; 96372; 99202; 99284; J0690; A9270-GY

== ENCOUNTER 2024-02-08 02:37 | Observation (INO) | payer MEDICARE ==
[2024-02-08] MEDS ORDERED: DUONEB 0.5-3 MG/3 ml Neb IH ONE (03:08)
--- NOTE | 2024-02-08 03:08 | ERPHSYRPT ---
- History of Present Illness Time Seen by Provider: 02/08/24 02:38 Patient Subjective Stated Complaint: Shortness of breath for 2 - 3 hours prior to arrival Triage Nursing Assessment: 63 yr old male pt arrives to ED via POV. Pt presents with complaints of Physician History: 63-year-old male with history of coronary artery disease, congestive heart failure, atrial fibrillation on Eliquis, hypertension, hyperlipidemia presented to the ER with complains of increasing shortness of breath for the last 3 to 4 hours. Patient reports shortness of breath with activity and partial relief with being still/resting. Patient has history of muscle cramps left lower extremity and they are getting worse tonight. Patient reports spasming in the left leg and cannot stay still on presentation. Denies any chest pain. Has bilateral lower extremity swelling which is progressively getting worse and also having swelling lower abdomen Allergies/Adverse Reactions: diphenhydramine [From Benadryl] Allergy (Verified 02/08/24 09:46) Difficulty Breathing Iodinated Contrast Media Allergy (Verified 02/08/24 09:46) Difficulty Breathing Home Medications: Atorvastatin Calcium [Lipitor 40Mg] 40 mg PO HS 07/28/23 [History] Duloxetine HCl [Cymbalta] 60 mg PO BID 07/28/23 [History] Insulin Aspart [NovoLOG Insulin] 3 unit SQ AC 07/28/23 [History] Insulin Glargine [Lantus Insulin] 20 unit SQ BID 07/28/23 [History] Omeprazole 40 mg PO DAILY PRN 07/28/23 [History] Ropinirole 2Mg [Requip 2Mg Tab] 2 mg PO HS 07/28/23 [History] Trazodone HCl 50 mg [Desyrel 50 mg] 50 mg PO HS PRN 07/28/23 [History] Carvedilol 3.125 mg [Coreg 3.125 MG] 12.5 mg PO BID 10/16/23 [History] Potassium Chloride 20 meq PO DAILY 10/16/23 [History] Empagliflozin [Jardiance] 25 mg PO DAILY 01/29/24 [History] lisinopriL [Zestril] 2.5 mg PO DAILY 01/29/24 [History] Torsemide 20 mg [Demadex 20 mg] 50 mg PO DAILY 02/05/24 [History] Gabapentin [Neurontin ] 100 mg PO TID 02/08/24 [History] Hx Tetanus, Diphtheria Vaccination/Date Given: Yes Hx Influenza Vaccination/Date Given: Yes Hx Pneumococcal Vaccination/Date Given: Yes Immunizations Up to Date: Yes Travel Risk - International Travel Have you traveled outside of the country in past 3 weeks: No - Emerging Infectious Disease Are you exhibiting symptoms associated with any current EIDs: Yes Symptoms: Shortness of Breath - Review of Systems Constitutional: No Symptoms Eyes: No Symptoms Ears, Nose, & Throat: No Symptoms Respiratory: Dyspnea, Wheezing Cardiac: No Symptoms Abdominal/Gastrointestinal: No Symptoms Genitourinary Symptoms: No Symptoms Musculoskeletal: Myalgias Skin: No Symptoms Neurological: No Symptoms Endocrine: No Symptoms Hematologic/Lymphatic: No Symptoms - Past Medical History Pertinent Past Medical History: Yes Neurological History: Peripheral Neuropathy ENT History: Cataracts Cardiac History: Arrhythmia, Congestive Heart Failure, High Cholesterol, Hypertension Respiratory History: Bronchitis, CHF, COPD, Sleep Apnea Endocrine Medical History: Diabetes Type II Musculoskeletal History: Arthritis, Osteoarthritis, Other GI Medical History: GERD, Gallbladder Disease History: Renal Disease Psycho-Social History: Anxiety, Depression Male Reproductive Disorders: No Pertinent History Other Medical History: a.fib, restless leg, bulging discs cervical spine, carpal tunnel - Past Surgical History Past Surgical History: Yes Neuro Surgical History: No Pertinent History Cardiac: Pacemaker Respiratory: No Pertinent History Gastrointestinal: Cholecystectomy Genitourinary: No Pertinent History Musculoskeletal: Amputation Male Surgical History: No Pertinent History Other Surgical History: cardiac ablation, 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 - Social History Smoking Status: Never smoker Exposure to second hand smoke: No Drug Use: none Patient Lives Alone: No - Social Determinants of Health Will the patient participate in the screening: Declined to provide - Nursing Vital Signs Nursing Vital Signs: Initial Vital Signs Temperature 98.9 F 02/08/24 02:37 Pulse Rate 89 02/08/24 02:37 Respiratory Rate 22 02/08/24 02:37 Blood Pressure 143/99 02/08/24 02:37 O2 Sat by Pulse Oximetry 99 02/08/24 02:37 Pain Scale Pain Intensity 0 - Physical Exam General Appearance: mild distress, alert Eye Exam: PERRL/EOMI Ears, Nose, Throat Exam: hearing grossly normal, normal pharynx Neck Exam: normal inspection, non-tender, supple, full range of motion Respiratory Exam: rhonchi, wheezing Cardiovascular/Chest Exam: normal heart sounds, regular rate/rhythm, edema Abdominal/Gastrointestinal Exam: soft, normal bowel sounds, No tenderness Extremity Exam: calf tenderness, swelling Neurologic Exam: alert, oriented x 3, cooperative, 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 Skin Exam: normal color SpO2 Interpretation: normal SpO2: 99 O2 Delivery: Room Air - Course EKG Interpreted by Me: RATE (74), Sinus Rhythm, Right [place] Deviation, Q-wave, Non-specific ST Changes Ordered Tests: Medication Summary Discontinued Medications Generic Name Dose Route Start Last Admin Trade Name Freq PRN Reason Stop Dose Admin Acetaminophen 650 mg 02/08/24 13:18 02/12/24 14:11 Acetaminophen 325 Mg Tablet PO 03/09/24 13:17 650 mg Q4H PRN PRN Administration PAIN, FEVER, HEADACHE Hydrocodone Bitart/Acetaminophen 1 tab 02/08/24 14:36 02/10/24 15:57 Hydrocodone/Apap 5/325 1 Tab Tablet PO 02/13/24 14:35 1 tab Q4H PRN PRN Administration PAIN Albuterol/Ipratropium 3 ml 02/08/24 02:53 02/08/24 03:09 Ipratropium/Albuterol Sulfate 3 Ml Ampul.Neb IH 02/08/24 02:54 3 ml STAT ONE Administration Albuterol/Ipratropium Confirm 02/08/24 03:08 Ipratropium/Albuterol Sulfate 3 Ml Ampul.Neb Administered 02/08/24 03:09 Dose 3 ml IH .STK-MED ONE Alprazolam 0.25 mg 02/08/24 17:52 02/08/24 17:55 Alprazolam 0.25 Mg Tablet PO 02/08/24 17:53 0.25 mg STAT ONE Administration Alprazolam 0.25 mg 02/08/24 22:06 02/08/24 22:17 Alprazolam 0.25 Mg Tablet PO 02/08/24 22:07 0.25 mg ONCE ONE Administration Apixaban 5 mg 02/08/24 22:00 02/12/24 09:16 Apixaban 2.5 Mg Tablet PO 07/15/24 21:59 5 mg BID JUAN Administration Carvedilol 12.5 mg 02/08/24 22:00 02/12/24 09:16 Carvedilol 12.5 Mg Tablet PO 03/09/24 21:59 12.5 mg BID JUAN Administration Cyclobenzaprine HCl 5 mg 02/11/24 12:22 02/11/24 12:43 Cyclobenzaprine Hcl 10 Mg Tablet PO 02/11/24 12:23 5 mg STAT ONE Administration Cyclobenzaprine HCl 5 mg 02/11/24 16:10 02/11/24 16:30 Cyclobenzaprine Hcl 10 Mg Tablet PO 02/11/24 16:11 5 mg ONCE ONE Administration Dextrose 50 ml 02/09/24 16:36 02/09/24 16:45 Dextrose 50%-Water 50 Ml Abboject IV 02/09/24 16:37 50 ml STAT ONE Administration Dextrose Confirm 02/11/24 20:31 Dextrose 50%-Water 50 Ml Abboject Administered 02/11/24 20:32 Dose 50 ml IV .STK-MED ONE Dextrose 50 ml 02/11/24 20:44 02/12/24 01:35 Dextrose 50%-Water 50 Ml Abboject IV 03/12/24 20:43 50 ml PRN PRN Administration HYPOGLYCEMIA Duloxetine HCl 60 mg 02/08/24 22:00 02/12/24 09:19 Duloxetine Hcl 30 Mg Cap PO 03/09/24 21:59 60 mg BID JUAN Administration Furosemide 40 mg 02/09/24 10:00 02/11/24 10:19 Furosemide 40 Mg/4 Ml Vial IV 03/10/24 09:59 40 mg DAILY JUAN Administration Furosemide 40 mg 02/09/24 20:00 02/09/24 19:40 Furosemide 40 Mg/4 Ml Vial IV 02/09/24 20:01 40 mg ONCE ONE Administration Gabapentin 100 mg 02/08/24 15:00 02/12/24 14:11 Gabapentin 100 Mg Capsule PO 03/09/24 14:59 100 mg TID JUAN Administration Haloperidol Lactate 2 mg 02/11/24 20:14 02/11/24 20:18 Haloperidol Lactate 5 Mg/Ml Vial IV 03/12/24 20:13 2 mg Q6HPRN PRN Administration ANXIETY/AGITATION Hydromorphone HCl 1 mg 02/08/24 03:23 02/08/24 03:26 Hydromorphone 1 Mg/1ml Inj IV 02/08/24 03:24 1 mg STAT ONE Administration Hydromorphone HCl Confirm 02/08/24 03:25 Hydromorphone 1 Mg/1ml Inj Administered 02/08/24 03:26 Dose 1 mg .ROUTE .STK-MED ONE Hydromorphone HCl 0.5 mg 02/08/24 14:36 02/08/24 14:47 Hydromorphone 1 Mg/1ml Inj IV 02/13/24 14:35 0.5 mg Q4H PRN PRN Administration PAIN Sodium Chloride 500 mls @ 500 mls/hr 02/08/24 05:23 02/08/24 07:13 Sodium Chloride 0.9% 500 Ml IV 02/08/24 06:22 Infused .Q1H ONE Infusion Sodium Chloride 1,000 mls @ 125 mls/hr 02/08/24 05:30 02/08/24 07:15 Sodium Chloride 0.9% 1000 Ml IV 03/09/24 05:29 125 mls/hr .Q8H JUAN Administration Sodium Chloride Confirm 02/08/24 05:42 Sodium Chloride 0.9% 500 Ml Administered 02/08/24 05:43 Dose 500 mls @ ud IV .STK-MED ONE Magnesium Sulfate/Dextrose 100 mls @ 100 mls/hr 02/08/24 06:45 02/08/24 07:47 Magnesium 1 Gm / 100 Ml D5w IV 02/08/24 08:44 100 mls/hr Q1H JUAN Administration Albumin Human 100 mls @ 60 mls/hr 02/08/24 13:45 02/08/24 14:03 Alburx 25% 50ml Vial IV 02/08/24 15:24 60 mls/hr STAT ONE Administration Albumin Human 100 mls @ 60 mls/hr 02/09/24 12:00 02/09/24 13:12 Al[place]x 25% 50ml Vial IV 02/09/24 13:39 60 mls/hr STAT ONE Administration Furosemide 100 mg/ Sodium 100 mls @ 10 mls/hr 02/11/24 14:00 02/12/24 11:42 Chloride IV 03/12/24 13:59 10 mls/hr .Q10H JUAN 10 mls/hr Administration Dextrose 250 mls @ 70 mls/hr 02/12/24 00:30 02/12/24 07:47 Dextrose 10% 250 Ml IV 03/13/24 00:29 70 mls/hr .Q3H35M JUAN Administration Insulin Glargine 20 unit 02/08/24 22:00 02/12/24 09:43 Insulin Glargine 1 Unit SQ 03/09/24 21:59 Not Given BID JUAN Insulin Human Lispro 0 unit 02/08/24 13:18 02/09/24 12:30 Insulin Lispro 1 Unit SQ 03/09/24 13:17 10 unit UD PRN Administration HYPERGLYCEMIA Insulin Human Lispro 6 unit 02/08/24 17:00 Insulin Lispro 1 Unit SQ 03/09/24 16:59 TIDWM JUAN Insulin Human Lispro 2 unit 02/08/24 17:00 02/09/24 16:48 Insulin Lispro 1 Unit SQ 03/09/24 16:59 Not Given TIDWM JUAN Insulin Human Lispro 0 unit 02/09/24 17:03 Insulin Lispro 1 Unit SQ 03/10/24 17:02 UD PRN HYPERGLYCEMIA Insulin Human Regular 10 unit 02/08/24 05:42 02/08/24 05:52 Insulin Regular, Human 1 Unit IV 02/08/24 05:43 10 unit STAT ONE Administration Insulin Human Regular Confirm 02/08/24 05:49 Insulin Regular, Human 1 Unit Administered 02/08/24 05:50 Dose 10 unit .ROUTE .STK-MED ONE Lorazepam 1 mg 02/11/24 18:24 02/11/24 18:44 Lorazepam 2 Mg/1 Ml 2 Mg Vial IV 02/11/24 18:25 1 mg ONCE ONE Administration Lorazepam 1 mg 02/11/24 19:23 02/11/24 19:31 Lorazepam 2 Mg/1 Ml 2 Mg Vial IV 02/11/24 19:24 1 mg ONCE ONE Administration Morphine Sulfate 4 mg 02/08/24 02:54 02/08/24 03:12 Morphine Sulfate 4 Mg/Ml Injection IV 02/08/24 02:55 4 mg STAT ONE Administration Morphine Sulfate Confirm 02/08/24 03:10 Morphine Sulfate 4 Mg/Ml Injection Administered 02/08/24 03:11 Dose 4 mg .ROUTE .STK-MED ONE Non-Formulary Medication 1 each 02/11/24 13:36 02/11/24 15:07 Pharmacy Dosing Request MC 02/11/24 13:37 1 each STAT ONE Administration Ondansetron HCl 4 mg 02/08/24 02:54 02/08/24 03:12 Ondansetron Hcl 4 Mg/2 Ml Vial IV 02/08/24 02:55 4 mg STAT ONE Administration Ondansetron HCl Confirm 02/08/24 03:10 Ondansetron Hcl 4 Mg/2 Ml Vial Administered 02/08/24 03:11 Dose 4 mg .ROUTE .STK-MED ONE Orphenadrine Citrate 60 mg 02/08/24 02:55 02/08/24 03:12 Orphenadrine Citrate 60 Mg/2 Ml Vial IV 02/08/24 02:56 60 mg STAT ONE Administration Orphenadrine Citrate Confirm 02/08/24 03:10 Orphenadrine Citrate 60 Mg/2 Ml Vial Administered 02/08/24 03:11 Dose 60 mg .ROUTE .STK-MED ONE Oxycodone/Acetaminophen 1 tab 02/11/24 21:55 02/11/24 22:21 Oxycodone Hcl/Apap 5 Mg/325 Mg Tablet PO 02/11/24 21:56 1 tab ONCE ONE Administration Pantoprazole Sodium 40 mg 02/08/24 14:01 Protonix (Pantoprazole) 40 Mg Tablet PO 03/09/24 14:00 DAILY PRN PRN INDIGESTION Patiromer 8.4 gm 02/12/24 07:55 02/12/24 08:30 Patiromer Calcium Sorbitex 8.4 Gm Powd.Pack PO 02/12/24 07:56 8.4 gm STAT STA Administration Potassium Chloride 20 meq 02/09/24 10:00 02/11/24 10:18 Potassium Chloride Tab 10 Meq Tab PO 03/10/24 09:59 20 meq DAILY JUAN Administration Ropinirole HCl 2 mg 02/08/24 22:00 02/11/24 21:38 Ropinirole Hcl 2 Mg Tablet PO 03/09/24 21:59 2 mg HS JUAN Administration Simvastatin 40 mg 02/08/24 22:00 02/11/24 21:38 Simvastatin 20 Mg Tablet PO 03/09/24 21:59 40 mg HS JUAN Administration Sodium Bicarbonate 650 mg 02/09/24 10:00 02/09/24 21:59 Sodium Bicarbonate 650 Mg Tablet PO 03/10/24 09:59 650 mg BID JUAN Administration Sodium Bicarbonate 650 mg 02/10/24 10:00 02/12/24 14:11 Sodium Bicarbonate 650 Mg Tablet PO 03/11/24 09:59 650 mg TID JUAN Administration Trazodone HCl 50 mg 02/08/24 13:27 02/11/24 21:41 Trazodone Hcl 50 Mg Tablet PO 03/09/24 13:26 50 mg HS PRN PRN Administration INSOMNIA Trimethoprim/Sulfamethoxazole 1 tab 02/08/24 22:00 02/12/24 09:19 Smz/Tmp Ds Tablet 1 Tablet PO 02/22/24 21:59 1 tab BID JUAN Administration Lab/Rad Data: Laboratory Result Diagrams 02/08/24 03:13 02/08/24 03:13 Laboratory Results 02/08/24 02/08/24 02/08/24 Range/Units 07:39 06:03 05:33 WBC (4.23-9.07) x10^3/uL RBC (4.63-6.08) x10^6/uL Hgb (13.7-17.5) g/dL Hct (40.1-51.0) % MCV (79.0-92.2) fL MCH (25.7-32.2) pg MCHC (32.3-36.5) g/dL RDW (11.6-14.4) % Plt Count (163-337) x10^3/uL MPV (9.4-12.4) fL Gran % (34.0-67.9) % Immature Gran % (Auto) (0.001-0.429) % Nucleat RBC Rel Count (0.00-0.2) % Eos # (Auto) (0.04-0.54) x10^3/uL Immature Gran # (Auto) (0.001-0.031) x10^3u/L Absolute Lymphs (auto) (1.32-3.57) x10^3/uL Absolute Monos (auto) (0.30-0.82) x10^3/uL Absolute Nucleated RBC (0.00-0.012) x10^3u/L Lymphocytes % (21.8-53.1) % Monocytes % (5.3-12.2) % Eosinophils % (0.8-7.0) % Basophils % (0.2-1.2) % Absolute Granulocytes (1.78-5.38) x10^3/uL Basophils # (0.01-0.08) x10^3/uL Sodium (135-145) mmol/L Potassium (3.5-5.1) mmol/L Chloride (98-107) mmol/L Carbon Dioxide (22-30) mmol/L Anion Gap (5-15) MEQ/L BUN (9-20) mg/dL Creatinine (0.66-1.25) mg/dL Estimated GFR ML/MIN Glucose (74-106) mg/dL POC Glucometer 220 H 437 H (74 to 106) mg/dL Lactic Acid (0.4-2.0) Calcium (8.4-10.2) mg/dL Magnesium (1.6-2.3) mg/dL Total Bilirubin (0.2-1.3) mg/dL AST (17-59) U/L ALT (0-50) U/L Alkaline Phosphatase (38-126) U/L Creatine Kinase (55-170) U/L Troponin I 0.119 H* (0.000-0.033) ng/mL NT-Pro-B Natriuret Pep (<300) pg/mL Serum Total Protein (6.3-8.2) g/dL Albumin (3.5-5.0) g/dL Urine Color (Yellow) Urine Appearance (Clear) Urine pH (4.6-8.0) Ur Specific [place] (1.005-1.030) Urine Protein (Negative) Urine Glucose (UA) (Negative) mg/dL Urine Ketones (Negative) Urine Blood (Negative) Urine Nitrite (Negative) Urine Bilirubin (Negative) Urine Urobilinogen (0.2) mg/dL Ur Leukocyte Esterase (Negative) U Hyaline Cast (Auto) (0-2) /LPF Urine Microscopic RBC (0-5) /HPF Urine Microscopic WBC (0-5) /HPF Ur Epithelial Cells (None Seen) /HPF Urine Bacteria (None Seen) /HPF Urine Culture Reflexed (NO) 06/02/08/24 02/08/24 Range/Units 03:35 03:13 03:13 WBC (4.23-9.07) x10^3/uL RBC (4.63-6.08) x10^6/uL Hgb (13.7-17.5) g/dL Hct (40.1-51.0) % MCV (79.0-92.2) fL MCH (25.7-32.2) pg MCHC (32.3-36.5) g/dL RDW (11.6-14.4) % Plt Count (163-337) x10^3/uL MPV (9.4-12.4) fL Gran % (34.0-67.9) % Immature Gran % (Auto) (0.001-0.429) % Nucleat RBC Rel Count (0.00-0.2) % Eos # (Auto) (0.04-0.54) x10^3/uL Immature Gran # (Auto) (0.001-0.031) x10^3u/L Absolute Lymphs (auto) (1.32-3.57) x10^3/uL Absolute Monos (auto) (0.30-0.82) x10^3/uL Absolute Nucleated RBC (0.00-0.012) x10^3u/L Lymphocytes % (21.8-53.1) % Monocytes % (5.3-12.2) % Eosinophils % (0.8-7.0) % Basophils % (0.2-1.2) % Absolute Granulocytes (1.78-5.38) x10^3/uL Basophils # (0.01-0.08) x10^3/uL Sodium 132 L (135-145) mmol/L Potassium 3.5 (3.5-5.1) mmol/L Chloride 99 (98-107) mmol/L Carbon Dioxide 23 (22-30) mmol/L Anion Gap 12.8 (5-15) MEQ/L BUN 26 H (9-20) mg/dL Creatinine 1.96 H (0.66-1.25) mg/dL Estimated GFR 37.3 ML/MIN Glucose 483 H (74-106) mg/dL POC Glucometer (74 to 106) mg/dL Lactic Acid (0.4-2.0) Calcium 8.0 L (8.4-10.2) mg/dL Magnesium 1.5 L (1.6-2.3) mg/dL Total Bilirubin 0.60 (0.2-1.3) mg/dL AST 81 H (17-59) U/L ALT 46 (0-50) U/L Alkaline Phosphatase 185 H (38-126) U/L Creatine Kinase 1101 H (55-170) U/L Troponin I 0.139 H* (0.000-0.033) ng/mL NT-Pro-B Natriuret Pep 9170 (<300) pg/mL Serum Total Protein 6.4 (6.3-8.2) g/dL Albumin 3.1 L (3.5-5.0) g/dL Urine Color Dark Yellow (Yellow) Urine Appearance Clear (Clear) Urine pH 5.0 (4.6-8.0) Ur Specific [place] 1.020 (1.005-1.030) Urine Protein >=1000 A (Negative) Urine Glucose (UA) >=1000 A (Negative) mg/dL Urine Ketones Negative (Negative) Urine Blood Small A (Negative) Urine Nitrite Negative (Negative) Urine Bilirubin Negative (Negative) Urine Urobilinogen 1.0 A (0.2) mg/dL Ur Leukocyte Esterase Negative (Negative) U Hyaline Cast (Auto) 6-10 A (0-2) /LPF Urine Microscopic RBC 3-5 (0-5) /HPF Urine Microscopic WBC 0-2 (0-5) /HPF Ur Epithelial Cells None Seen (None Seen) /HPF Urine Bacteria None Seen (None Seen) /HPF Urine Culture Reflexed NO (NO) 02/08/24 02/08/24 Range/Units 03:13 02:53 WBC 5.8 (4.23-9.07) x10^3/uL RBC 3.42 L (4.63-6.08) x10^6/uL Hgb 9.6 L (13.7-17.5) g/dL Hct 29.6 L (40.1-51.0) % MCV 86.5 (79.0-92.2) fL MCH 28.1 (25.7-32.2) pg MCHC 32.4 (32.3-36.5) g/dL RDW 13.4 (11.6-14.4) % Plt Count 224 (163-337) x10^3/uL MPV 9.7 (9.4-12.4) fL Gran % 80.3 H (34.0-67.9) % Immature Gran % (Auto) 0.3 (0.001-0.429) % Nucleat RBC Rel Count 0.0 (0.00-0.2) % Eos # (Auto) 0.03 L (0.04-0.54) x10^3/uL Immature Gran # (Auto) 0.02 (0.001-0.031) x10^3u/L Absolute Lymphs (auto) 0.77 L (1.32-3.57) x10^3/uL Absolute Monos (auto) 0.30 (0.30-0.82) x10^3/uL Absolute Nucleated RBC 0.00 (0.00-0.012) x10^3u/L Lymphocytes % 13.4 L (21.8-53.1) % Monocytes % 5.2 L (5.3-12.2) % Eosinophils % 0.5 L (0.8-7.0) % Basophils % 0.3 (0.2-1.2) % Absolute Granulocytes 4.61 (1.78-5.38) x10^3/uL Basophils # 0.02 (0.01-0.08) x10^3/uL Sodium (135-145) mmol/L Potassium (3.5-5.1) mmol/L Chloride (98-107) mmol/L Carbon Dioxide (22-30) mmol/L Anion Gap (5-15) MEQ/L BUN (9-20) mg/dL Creatinine (0.66-1.25) mg/dL Estimated GFR ML/MIN Glucose (74-106) mg/dL POC Glucometer (74 to 106) mg/dL Lactic Acid 1.6 (0.4-2.0) Calcium (8.4-10.2) mg/dL Magnesium (1.6-2.3) mg/dL Total Bilirubin (0.2-1.3) mg/dL AST (17-59) U/L ALT (0-50) U/L Alkaline Phosphatase (38-126) U/L Creatine Kinase (55-170) U/L Troponin I (0.000-0.033) ng/mL NT-Pro-B Natriuret Pep (<300) pg/mL Serum Total Protein (6.3-8.2) g/dL Albumin (3.5-5.0) g/dL Urine Color (Yellow) Urine Appearance (Clear) Urine pH (4.6-8.0) Ur Specific [place] (1.005-1.030) Urine Protein (Negative) Urine Glucose (UA) (Negative) mg/dL Urine Ketones (Negative) Urine Blood (Negative) Urine Nitrite (Negative) Urine Bilirubin (Negative) Urine Urobilinogen (0.2) mg/dL Ur Leukocyte Esterase (Negative) U Hyaline Cast (Auto) (0-2) /LPF Urine Microscopic RBC (0-5) /HPF Urine Microscopic WBC (0-5) /HPF Ur Epithelial Cells (None Seen) /HPF Urine Bacteria (None Seen) /HPF Urine Culture Reflexed (NO) - Progress Progress: improved, re-examined Air Movement: good Progress Note: 02/08/24 06:30 63-year-old is evaluated in the ER for shortness of breath and left leg cramp/spasming. Patient has history of A-fib on Eliquis and pacemaker. Patient has history of leg cramps. EKG is paced rhythm with no elevations. He is given DuoNeb along with symptomatic treatment morphine/Norflex/Dilaudid and cramping in the leg is improved. Patient does not have any signs of leg ischemia. Cap refill less than 3 seconds. No difficulty movements of the toes. Has more cramping in the thigh/hamstring areas. Has normal white count, initial troponin of 0.13 but patient denies having any chest pain, has a BNP in the 9000 as compared to 3000 few months ago. I believe patient's elevated troponin is secondary to CHF exacerbation rather than coronary arteries. Chest x-ray I do not see any obvious infiltrative process or diffuse pulmonary edema reviewed by me, official report is pending. But patient does have lower extremity increasing swelling. Patient has a CK level of 1100 and acute on chronic renal failure with a creatinine of 1.96. He is started on gentle hydration to flush office rhabdomyolysis. Patient has a glucose in 480s with normal bicarb and no ketones in the urine. He is given 10 units of IV insulin as patient is not in DKA or HHS. I have reviewed previous record and patient had elevated troponin on previous admission as well. Will trend cardiac enzymes. I have discussed with Dr. Mancini, reviewed history, workup and agreed with admission. Blood Culture(s) Obtained: No Antibiotics given: No Discussed with : Alicia Will see patient in: hospital (observation) Counseled pt/family regarding: lab results, diagnosis, rad results Medical Desision Making - External Record(s) Reviewed Records reviewed as a part of evaluation & management: Discharge Summary - Discussion of managment Care discussed with:: hospitalist (Dr. Mancini) Reviewed:: Test results Agreed on:: Treatment plan, place in obs Will see patient: in hospital - Diagnostic Testing Diagnostic test were ordered, analyzed, and reviewed by me: Yes Radiological Interpretation: Interpreted by me, Reviewed by me - Risk of complications The pt has a mod risk of morbidity or mortality based on: Need for prescription drug management The pt has a high risk of morbidity or mortality based on: Decision regarding hospitilization or escalation of hosp level of care - Departure Clinical Impression: Hyperglycemia, Elevated troponin, Muscle spasm of left lower extremity, Rhabdomyolysis, Hypomagnesemia Acute exacerbation of CHF (congestive heart failure) Qualifiers: Heart failure type: systolic Qualified Code(s): I50.23 - Acute on chronic systolic (congestive) heart failure Condition: Stable Critical Care Time: No
[2024-02-08] MEDS: DUONEB 0.5-3 MG/3 ml Neb IH ONE (03:09)
[2024-02-08] MEDS ORDERED: Norflex 60 MG/2 ML ONE (03:10)
[2024-02-08] MEDS ORDERED: MORPHINE SULFATE 4 MG INJ ONE (03:10)
[2024-02-08] MEDS ORDERED: Zofran 4 MG/2 ML VIAL ONE (03:10)
[2024-02-08] MEDS: MORPHINE SULFATE 4 MG INJ IV ONE (03:12)
[2024-02-08] MEDS: Zofran 4 MG/2 ML VIAL IV ONE (03:12)
[2024-02-08] MEDS: Norflex 60 MG/2 ML IV ONE (03:12)
[2024-02-08 03:16] LABS: Absolute Neutrophil Ct (ANC) 4.61 x10^3/uL (1.78-5.38); BASOPHIL % 0.3 % (0.2-1.2); Basophil (Absolute #) 0.02 x10^3/uL (0.01-0.08); Eosinophil % 0.5 % (0.8-7.0); Eosinophil (Absolute #) 0.03 x10^3/uL (0.04-0.54); Hematocrit 29.6 % (40.1-51.0); Hemoglobin 9.6 g/dL (13.7-17.5); IMMATURE GRAN # 0.02 x10^3u/L (0.001-0.031); IMMATURE GRAN % 0.3 % (0.001-0.429); Lymphocyte (Absolute #) 0.77 x10^3/uL (1.32-3.57); Lymphocytes % 13.4 % (21.8-53.1); Mean Cell Volume 86.5 fL (79.0-92.2); Mean Corpuscular Hemoglobin 28.1 pg (25.7-32.2); Mean Corpuscular Hgb Concent. 32.4 g/dL (32.3-36.5); Mean Platelet Volume 9.7 fL (9.4-12.4); Monocytes % 5.2 % (5.3-12.2); Neutrophil % 80.3 % (34.0-67.9); Platelet Count 224 x10^3/uL (163-337); Red Blood Count 3.42 x10^6/uL (4.63-6.08); Red Cell Distribution Width 13.4 % (11.6-14.4); White Blood Count 5.8 x10^3/uL (4.23-9.07)
[2024-02-08] MEDS ORDERED: Hydromorphone 1 mg/ml Injection ONE (03:25)
[2024-02-08] MEDS: Hydromorphone 1 mg/ml Injection IV ONE (03:26)
[2024-02-08 04:49] LABS: Appearance Clear (Clear); Bacteria None Seen /HPF (None Seen); Bilirubin Negative (Negative); Blood Small (Negative); Epithelial Cells None Seen /HPF (None Seen); Glucose, Urine >=1000 mg/dL (Negative); Ketones Negative (Negative); Leukocyte Esterase Negative (Negative); Nitrite Negative (Negative); Protein,Urine Dip >=1000 (Negative); WBC 0-2 /HPF (0-5)
[2024-02-08 04:50] LABS: ADD URINE CULTURE? NO (NO)
[2024-02-08 04:53] LABS: ALBUMIN 3.1 g/dL (3.5-5.0); ANION GAP 12.8 MEQ/L (5-15); BILIRUBIN,TOTAL 0.6 mg/dL (0.2-1.3); Creatinine 1 1.96 mg/dL (0.66-1.25); EST GLOMERULAR FILTRATION RATE 37.3 ML/MIN; MAGNESIUM 1.5 mg/dL (1.6-2.3); Potassium 3.5 mmol/L (3.5-5.1); Total Protein 6.4 g/dL (6.3-8.2)
[2024-02-08] MEDS ORDERED: Sodium Chloride 0.9% 500 ML 500 ML IV ONE (05:42)
[2024-02-08] MEDS: Sodium Chloride 0.9% 500 ML 500 ML IV ONE (05:43)
[2024-02-08] MEDS ORDERED: HUMULIN R ONE (05:49)
[2024-02-08] MEDS: HUMULIN R IV ONE (05:52)
[2024-02-08] MEDS: Magnesium 1 Gm / 100 Ml D5W*** 100 ML IV SCH (07:15)
[2024-02-08] MEDS: Sodium Chloride 0.9% 1000 ML 1,000 ML IV SCH (07:15)
--- NOTE | 2024-02-08 08:13 | XRAY ---
Indication: Short of breath. Comparison: September 19, 2023 Portable chest demonstrates new minimal left midlung subsegmental atelectasis/scarring. Stable incidental tiny calcified granulomas. No focal infiltrate, consolidation, or large effusion. Heart remains borderline enlarged with left pacemaker. Bony thorax intact again with osteopenia and mild degenerative changes. Impression: Continued nonacute chest with chronic features.
--- NOTE | 2024-02-08 10:26 | PCM.HP ---
History of Present Illness - Chief Complaint Chief Complaint: RHABDOMYOLOSIS Date: 02/08/24 History of Present Illness: is a 63 year old male with PMHX of a-fib, restless legs, anxiety, depression, Gerd, OA, Type II DM, Bronchitis, COPD, Sleep apnea, arrythmia, CHF, pacemaker, cardiac ablation, HTN, MRSA of neck, cataracts, and peripheral neuropathy who presented to ED with complaints of muscle spasms, BLE edema, and increased shortness of breath. Patient had recent amputation on his left index finger (MCGuirk)and was treated with IV Dapto. His Picc was removed last and antibiotic has been changed to Bactrim. It is unclear why the change in antibiotics but I suspect it is due to his increased CK level. He in on RA during interview. He is edematous in BUE/BLE with distended abdomen. In ED, vitals are stable. CXR non-acute. Lab findings remarkable for normocytic anemia, most likely secondary to CKD, hyponatremia- most likely psuedohyponatremia secondary to hyperglycemia, acute on chronic kidney failure with creat above baseline of 0.95 - now at 1.96, elevated trops x 3 - downtrending, mag level at 1.5, and BNP elevated at 9170. Patient received 10 units of insulin, magnesium 1gm, and fluid bolus of 500ml. Plan for treatment of MARILU, hypomagnesemia, and CHF exacerbation. - Review of Systems Constitutional: No Symptoms Eyes: No Symptoms Ears, Nose, & Throat: No Symptoms Respiratory: Cough, Short Of Breath Cardiac: Edema (BUE/BLE 2-3+ pitting) Abdominal/Gastrointestinal: Other (abdominal distention) Genitourinary Symptoms: No Symptoms Musculoskeletal: No Symptoms Skin: Other (Left hand with surgical dressing for recent amputation of Left index finger) Neurological: No Symptoms Psychological: No Symptoms Endocrine: No Symptoms Hematologic/Lymphatic: Anemia Immunological/Allergic: No Symptoms Medications & Allergies Home Medications: Home Medication List Atorvastatin Calcium [Lipitor 40Mg] 40 mg PO HS 07/28/23 [History Confirmed 02/08/24] Duloxetine HCl [Cymbalta] 60 mg PO BID 07/28/23 [History Confirmed 02/08/24] Insulin Aspart [NovoLOG Insulin] 3 unit SQ AC 07/28/23 [History Confirmed 02/08/24] Insulin Glargine [Lantus Insulin] 20 unit SQ BID 07/28/23 [History Confirmed 02/08/24] Omeprazole 40 mg PO DAILY PRN 07/28/23 [History Confirmed 02/08/24] Ropinirole 2Mg [Requip 2Mg Tab] 2 mg PO HS 07/28/23 [History Confirmed 02/08/24] Trazodone HCl 50 mg [Desyrel 50 mg] 50 mg PO HS PRN 07/28/23 [History Confirmed 02/08/24] Apixaban [Eliquis 2.5 mg Tablet] 5 mg PO BID 30 Days #60 tablet 07/30/23 [Rx Confirmed 02/08/24] Spironolactone 25 mg [Aldactone 25 MG] 25 mg PO DAILY 30 Days #30 tablet 07/30/23 [Rx Confirmed 02/08/24] Furosemide 40 mg [Lasix 40 MG] 40 mg PO DAILY 30 Days #30 tablet 07/31/23 [Rx Confirmed 02/08/24] Carvedilol 3.125 mg [Coreg 3.125 MG] 12.5 mg PO BID 10/16/23 [History Confirmed 02/08/24] Potassium Chloride 20 meq PO DAILY 10/16/23 [History Confirmed 02/08/24] Empagliflozin [Jardiance] 25 mg PO DAILY 01/29/24 [History Confirmed 02/08/24] lisinopriL [Zestril] 2.5 mg PO DAILY 01/29/24 [History Confirmed 02/08/24] Torsemide 20 mg [Demadex 20 mg] 50 mg PO DAILY 02/05/24 [History Confirmed 02/08/24] Gabapentin [Neurontin ] 100 mg PO TID 02/08/24 [History Confirmed 02/08/24] Allergies/Adverse Reactions: Allergies Allergy/AdvReac Type Severity Reaction Status Date / Time diphenhydramine Allergy Difficulty Verified 02/08/24 09:46 [From Benadryl] Breathing Iodinated Contrast Media Allergy Difficulty Verified 02/08/24 09:46 Breathing - Past Medical History Past Medical History: Yes Neurological History: Peripheral Neuropathy ENT History: Cataracts Cardiac History: Arrhythmia, Congestive Heart Failure, High Cholesterol, Hypertension Respiratory History: Bronchitis, CHF, COPD, Sleep Apnea Endocrine Medical History: Diabetes Type II Musculoskelatal History: Arthritis, Osteoarthritis, Other GI Medical History: GERD, Gallbladder Disease History: Renal Disease Pyscho-Social History: Anxiety, Depression Male Reproductive Disorders: No Pertinent History Comment: a.fib, restless leg, bulging discs cervical spine, carpal tunnel - Past Surgical History Past Surgical History: Yes Neuro Surgical History: No Pertinent History Cardiac History: Pacemaker Respiratory Surgery: No Pertinent History GI Surgical History: Cholecystectomy Genitourinary Surgical Hx: No Pertinent History Musculskeletal Surgical Hx: Amputation Male Surgical History: No Pertinent History Other Surgical History: cardiac ablation, 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 - Social History Smoking Status: Never smoker Exposure to second hand smoke: No Alcohol: None Drug Use: none - Social Determinants of Health Will the patient participate in the screening: Yes Do you worry about a steady place to live?: No Do you have any problems with any of the following?: No known problems In the past 12 months,have you had to go without utilities?: No Have you or anyone in your house had to go without enough: No Transportation Issues: No Has anyone in your support network made you feel unsafe?: No Does the patient want assistance with any of the above?: No Comment: pt has no running water, would like assistance - Physical Exam Vital Signs: Vital Signs - 24 hr Temp Pulse Resp BP BP Pulse Ox 02/08/24 09:55 97.9 F 74 22 141/88 99 02/08/24 09:53 73 20 98 02/08/24 08:47 97.9 F 74 22 141/88 99 02/08/24 08:30 122/71 02/08/24 08:02 75 13 141/75 100 02/08/24 07:31 76 27 H 99/85 02/08/24 07:30 78 25 H 02/08/24 07:20 29 H 02/08/24 07:10 83 20 02/08/24 07:02 76 22 02/08/24 06:36 99 02/08/24 06:30 88 32 H 164/101 02/08/24 06:03 78 13 170/85 02/08/24 05:30 113 H 27 H 154/115 97 02/08/24 05:00 151/91 02/08/24 04:30 77 18 170/85 02/08/24 04:00 75 10 L 161/94 90 L 02/08/24 03:30 78 11 L 151/84 100 02/08/24 03:28 77 17 148/63 148/63 98 02/08/24 03:27 74 19 141/83 02/08/24 03:14 67 22 100 02/08/24 03:01 75 16 143/90 02/08/24 02:50 22 99 02/08/24 02:37 98.9 F 89 22 143/99 143/99 99 General Appearance: no apparent distress Neurologic Exam: alert, oriented x 3, cooperative Eye Exam: PERRL/EOMI Ears, Nose, Throat Exam: normal ENT inspection Neck Exam: normal inspection Respiratory Exam: crackles/rales Cardiovascular Exam: regular rate/rhythm, normal heart sounds, other (pacemaker left chest) Gastrointestinal/Abdomen Exam: soft, normal bowel sounds, distention Rectal Exam: deferred Back Exam: normal inspection Extremity Exam: amputations (Left index finger /right partial 2nd finder), inflammation, pedal edema, swelling (BUE/BLE 2-3+ pitting edema) Results - Labs Lab/Micro Results: Lab Results-Last 24 Hours 02/08/24 02/08/24 02/08/24 Range/Units 02:53 03:13 03:13 WBC 5.8 (4.23-9.07) x10^3/uL RBC 3.42 L (4.63-6.08) x10^6/uL Hgb 9.6 L (13.7-17.5) g/dL Hct 29.6 L (40.1-51.0) % MCV 86.5 (79.0-92.2) fL MCH 28.1 (25.7-32.2) pg MCHC 32.4 (32.3-36.5) g/dL RDW 13.4 (11.6-14.4) % Plt Count 224 (163-337) x10^3/uL MPV 9.7 (9.4-12.4) fL Gran % 80.3 H (34.0-67.9) % Immature Gran % (Auto) 0.3 (0.001-0.429) % Nucleat RBC Rel Count 0.0 (0.00-0.2) % Eos # (Auto) 0.03 L (0.04-0.54) x10^3/uL Immature Gran # (Auto) 0.02 (0.001-0.031) x10^3u/L Absolute Lymphs (auto) 0.77 L (1.32-3.57) x10^3/uL Absolute Monos (auto) 0.30 (0.30-0.82) x10^3/uL Absolute Nucleated RBC 0.00 (0.00-0.012) x10^3u/L Lymphocytes % 13.4 L (21.8-53.1) % Monocytes % 5.2 L (5.3-12.2) % Eosinophils % 0.5 L (0.8-7.0) % Basophils % 0.3 (0.2-1.2) % Absolute Granulocytes 4.61 (1.78-5.38) x10^3/uL Basophils # 0.02 (0.01-0.08) x10^3/uL Sodium 132 L (135-145) mmol/L Potassium 3.5 (3.5-5.1) mmol/L Chloride 99 (98-107) mmol/L Carbon Dioxide 23 (22-30) mmol/L Anion Gap 12.8 (5-15) MEQ/L BUN 26 H (9-20) mg/dL Creatinine 1.96 H (0.66-1.25) mg/dL Estimated GFR 37.3 ML/MIN Glucose 483 H (74-106) mg/dL POC Glucometer (74 to 106) mg/dL Lactic Acid 1.6 (0.4-2.0) Calcium 8.0 L (8.4-10.2) mg/dL Magnesium 1.5 L (1.6-2.3) mg/dL Total Bilirubin 0.60 (0.2-1.3) mg/dL AST 81 H (17-59) U/L ALT 46 (0-50) U/L Alkaline Phosphatase 185 H (38-126) U/L Creatine Kinase 1101 H (55-170) U/L Troponin I (0.000-0.033) ng/mL NT-Pro-B Natriuret Pep 9170 (<300) pg/mL Serum Total Protein 6.4 (6.3-8.2) g/dL Albumin 3.1 L (3.5-5.0) g/dL Urine Color (Yellow) Urine Appearance (Clear) Urine pH (4.6-8.0) Ur Specific [place] (1.005-1.030) Urine Protein (Negative) Urine Glucose (UA) (Negative) mg/dL Urine Ketones (Negative) Urine Blood (Negative) Urine Nitrite (Negative) Urine Bilirubin (Negative) Urine Urobilinogen (0.2) mg/dL Ur Leukocyte Esterase (Negative) U Hyaline Cast (Auto) (0-2) /LPF Urine Microscopic RBC (0-5) /HPF Urine Microscopic WBC (0-5) /HPF Ur Epithelial Cells (None Seen) /HPF Urine Bacteria (None Seen) /HPF Urine Culture Reflexed (NO) 02/08/24 02/08/24 02/08/24 Range/Units 03:13 03:35 05:33 WBC (4.23-9.07) x10^3/uL RBC (4.63-6.08) x10^6/uL Hgb (13.7-17.5) g/dL Hct (40.1-51.0) % MCV (79.0-92.2) fL MCH (25.7-32.2) pg MCHC (32.3-36.5) g/dL RDW (11.6-14.4) % Plt Count (163-337) x10^3/uL MPV (9.4-12.4) fL Gran % (34.0-67.9) % Immature Gran % (Auto) (0.001-0.429) % Nucleat RBC Rel Count (0.00-0.2) % Eos # (Auto) (0.04-0.54) x10^3/uL Immature Gran # (Auto) (0.001-0.031) x10^3u/L Absolute Lymphs (auto) (1.32-3.57) x10^3/uL Absolute Monos (auto) (0.30-0.82) x10^3/uL Absolute Nucleated RBC (0.00-0.012) x10^3u/L Lymphocytes % (21.8-53.1) % Monocytes % (5.3-12.2) % Eosinophils % (0.8-7.0) % Basophils % (0.2-1.2) % Absolute Granulocytes (1.78-5.38) x10^3/uL Basophils # (0.01-0.08) x10^3/uL Sodium (135-145) mmol/L Potassium (3.5-5.1) mmol/L Chloride (98-107) mmol/L Carbon Dioxide (22-30) mmol/L Anion Gap (5-15) MEQ/L BUN (9-20) mg/dL Creatinine (0.66-1.25) mg/dL Estimated GFR ML/MIN Glucose (74-106) mg/dL POC Glucometer 437 H (74 to 106) mg/dL Lactic Acid (0.4-2.0) Calcium (8.4-10.2) mg/dL Magnesium (1.6-2.3) mg/dL Total Bilirubin (0.2-1.3) mg/dL AST (17-59) U/L ALT (0-50) U/L Alkaline Phosphatase (38-126) U/L Creatine Kinase (55-170) U/L Troponin I 0.139 H* (0.000-0.033) ng/mL NT-Pro-B Natriuret Pep (<300) pg/mL Serum Total Protein (6.3-8.2) g/dL Albumin (3.5-5.0) g/dL Urine Color Dark Yellow (Yellow) Urine Appearance Clear (Clear) Urine pH 5.0 (4.6-8.0) Ur Specific [place] 1.020 (1.005-1.030) Urine Protein >=1000 A (Negative) Urine Glucose (UA) >=1000 A (Negative) mg/dL Urine Ketones Negative (Negative) Urine Blood Small A (Negative) Urine Nitrite Negative (Negative) Urine Bilirubin Negative (Negative) Urine Urobilinogen 1.0 A (0.2) mg/dL Ur Leukocyte Esterase Negative (Negative) U Hyaline Cast (Auto) 6-10 A (0-2) /LPF Urine Microscopic RBC 3-5 (0-5) /HPF Urine Microscopic WBC 0-2 (0-5) /HPF Ur Epithelial Cells None Seen (None Seen) /HPF Urine Bacteria None Seen (None Seen) /HPF Urine Culture Reflexed NO (NO) 02/08/24 02/08/24 Range/Units 06:03 07:39 WBC (4.23-9.07) x10^3/uL RBC (4.63-6.08) x10^6/uL Hgb (13.7-17.5) g/dL Hct (40.1-51.0) % MCV (79.0-92.2) fL MCH (25.7-32.2) pg MCHC (32.3-36.5) g/dL RDW (11.6-14.4) % Plt Count (163-337) x10^3/uL MPV (9.4-12.4) fL Gran % (34.0-67.9) % Immature Gran % (Auto) (0.001-0.429) % Nucleat RBC Rel Count (0.00-0.2) % Eos # (Auto) (0.04-0.54) x10^3/uL Immature Gran # (Auto) (0.001-0.031) x10^3u/L Absolute Lymphs (auto) (1.32-3.57) x10^3/uL Absolute Monos (auto) (0.30-0.82) x10^3/uL Absolute Nucleated RBC (0.00-0.012) x10^3u/L Lymphocytes % (21.8-53.1) % Monocytes % (5.3-12.2) % Eosinophils % (0.8-7.0) % Basophils % (0.2-1.2) % Absolute Granulocytes (1.78-5.38) x10^3/uL Basophils # (0.01-0.08) x10^3/uL Sodium (135-145) mmol/L Potassium (3.5-5.1) mmol/L Chloride (98-107) mmol/L Carbon Dioxide (22-30) mmol/L Anion Gap (5-15) MEQ/L BUN (9-20) mg/dL Creatinine (0.66-1.25) mg/dL Estimated GFR ML/MIN Glucose (74-106) mg/dL POC Glucometer 220 H (74 to 106) mg/dL Lactic Acid (0.4-2.0) Calcium (8.4-10.2) mg/dL Magnesium (1.6-2.3) mg/dL Total Bilirubin (0.2-1.3) mg/dL AST (17-59) U/L ALT (0-50) U/L Alkaline Phosphatase (38-126) U/L Creatine Kinase (55-170) U/L Troponin I 0.119 H* (0.000-0.033) ng/mL NT-Pro-B Natriuret Pep (<300) pg/mL Serum Total Protein (6.3-8.2) g/dL Albumin (3.5-5.0) g/dL Urine Color (Yellow) Urine Appearance (Clear) Urine pH (4.6-8.0) Ur Specific [place] (1.005-1.030) Urine Protein (Negative) Urine Glucose (UA) (Negative) mg/dL Urine Ketones (Negative) Urine Blood (Negative) Urine Nitrite (Negative) Urine Bilirubin (Negative) Urine Urobilinogen (0.2) mg/dL Ur Leukocyte Esterase (Negative) U Hyaline Cast (Auto) (0-2) /LPF Urine Microscopic RBC (0-5) /HPF Urine Microscopic WBC (0-5) /HPF Ur Epithelial Cells (None Seen) /HPF Urine Bacteria (None Seen) /HPF Urine Culture Reflexed (NO) Accuchecks Date 02/08/24 Date 02/08/24 Time 07:40 Time 05:35 - Radiology Impressions Radiology Exams & Impressions: Radiology Procedures Category Date Time Status CHEST 1 VIEW (PORTABLE) Stat Exams 02/08/24 02:53 Completed - Other Procedures and Tests Respiratory Therapy 02/08/24 10:15 RT Screen per Nursing Assess ONCE Assessment/Plan (1) Acute exacerbation of CHF (congestive heart failure) Current Visit: Yes Status: Acute Assessment & Plan: -Most recent echo on file 07/29/23 with EF at 33% IMPRESSION: 1) MODERATE DECREASE IN LEFT VENTRICULAR SYSTOLIC FUNCTION. 2) BORDERLINE CONCENTRIC LEFT VENTRICULAR HYPERTROPHY. 4) HYPOKINESIS OF THE INTERVENTRICULAR SEPTUM. 5) RIGHT VENTRICULAR PACING ELECTRODE. 6) MODERATE LEFT ATRIAL DILATATION. 7) MILD MITRAL REGURGITATION. 8) MILD TRICUSPID REGURGITATION. 9) NORMAL RIGHT VENTRICULAR SYSTOLIC PRESSURE -BNP at 9170 -Supplemental oxygen with spo2 goal > 92% -elevated HOB -CXR negative -Strict I&O with daily weights -ECHO when able -Optimize lytes K>4, MG > 2 -dc fluids -Lasix - monitor kidney function closely -albumin 25g x 1 dose -may need cards consult/neph consult Code(s): I50.9 - HEART FAILURE, UNSPECIFIED (2) Hypomagnesemia Current Visit: Yes Status: Acute Assessment & Plan: -Patient received 1gm of magnesium in ED, will monitor and replace as appropriate Code(s): E83.42 - HYPOMAGNESEMIA (3) Pseudohyponatremia Current Visit: Yes Status: Acute Assessment & Plan: -mild hyponatremia most likely secondary to hyperglycemia on admission, will continue to monitor Code(s): R79.89 - OTHER SPECIFIED ABNORMAL FINDINGS OF BLOOD CHEMISTRY (4) Elevated troponin Current Visit: Yes Status: Acute Assessment & Plan: -0.119<0.139 - downtrending -will continue series -EKG NS -possibly due to renal function -denies chest pain -CXR with no acute process -most recent echo 07/29/23 EF at 33% Code(s): R79.89 - OTHER SPECIFIED ABNORMAL FINDINGS OF BLOOD CHEMISTRY (5) Amputation of left index finger Current Visit: Yes Status: Acute Assessment & Plan: -Received Dapto as OP now on Bactrim, will continue - CK level elevation most likely reflective of this Code(s): S68.111A - COMPLETE TRAUMATIC MCP AMPUTATION OF LEFT INDEX FINGER, INIT (6) Hyperglycemia Current Visit: Yes Status: Acute Assessment & Plan: -received 8 units in ED, no DKA/HHS will continue high dose SSI, hold Jardiance due to kidney function, mealtime lispro/glargine -Uncontrolled Code(s): R73.9 - HYPERGLYCEMIA, UNSPECIFIED (7) Rhabdomyolysis Current Visit: Yes Status: Acute Assessment & Plan: -Believe CK elevation is due to recent use of DAPTO, will continue to monitor Code(s): M62.82 - RHABDOMYOLYSIS (8) Chronic a-fib Current Visit: No Status: Chronic Assessment & Plan: -continue home meds coreg/eliquis Code(s): I48.20 - CHRONIC ATRIAL FIBRILLATION, UNSPECIFIED (9) Type II diabetes mellitus Current Visit: No Status: Chronic Qualifiers: Diabetes mellitus complication status: with kidney complications Diabetes mellitus complication detail: with chronic kidney disease Assessment & Plan: -last A1c 10/17/23 was >14, will obtain new one -SSI -high dose/lispro/glargine -Hyperglycemic on arrival - pt is uncontrolled -reports recent issues with hypoglycemia so he did not take insulin- improved with ER giving 8 units - will continue to monitor -ADA diet -Advised glycemic control (10) Acute on chronic renal failure Current Visit: Yes Status: Acute Assessment & Plan: -Baseline creat around 0.95 - now at 1.96 -Avoid KERMIT/ARB/NSAIDS - hold Jardiance -PT in CHF exacerbation as well, will need to monitor closely with diuresis -consider neph consult VTE: Eliquis Dispo: 2-3 days Full Code Code(s): N17.9 - ACUTE KIDNEY FAILURE, UNSPECIFIED; N18.9 - CHRONIC KIDNEY DISEASE, UNSPECIFIED
[2024-02-08] MEDS ORDERED: AlbuRx 25% 50ML VIAL IV ONE (13:18)
[2024-02-08] MEDS ORDERED: NON-FORMULARY ITEM (Omeprazole [Omeprazole] 40 MG Capsule.Dr) PO PRN (13:27)
[2024-02-08] MEDS ORDERED: Protonix 40MG Tablet PO PRN (14:01)
[2024-02-08] MEDS: AlbuRx 25% 50ML VIAL*** 100 ML IV ONE (14:03)
[2024-02-08] MEDS: Neurontin PO SCH (14:30)
[2024-02-08] MEDS: Hydromorphone 1 mg/ml Injection IV PRN (14:47)
[2024-02-08 14:54] LABS: ANION GAP 12.8 MEQ/L (5-15); BILIRUBIN,TOTAL 0.5 mg/dL (0.2-1.3); Calcium 8.1 mg/dL (8.4-10.2); Creatinine 1 1.9 mg/dL (0.66-1.25); EST GLOMERULAR FILTRATION RATE 38.7 ML/MIN; Potassium 3.7 mmol/L (3.5-5.1); Total Protein 6.3 g/dL (6.3-8.2)
[2024-02-08] MEDS ORDERED: HUMALOG SQ SCH (17:00)
[2024-02-08] MEDS: xanAX 0.25 MG PO ONE ×2 (17:55→22:17)
[2024-02-08] MEDS: HUMALOG SQ SCH (19:42)
[2024-02-08] MEDS ORDERED: LIPITOR 40MG PO SCH (22:00)
[2024-02-08] MEDS ORDERED: Coreg 3.125 MG PO SCH (22:00)
[2024-02-08] MEDS ORDERED: NON-FORMULARY ITEM (Duloxetine Hcl [Cymbalta] 60 MG Capsule.Dr) PO SCH (22:00)
[2024-02-08] MEDS: ELIQUIS 2.5 MG TABLET PO SCH (22:17)
[2024-02-08] MEDS: REQUIP 2MG TAB PO SCH (22:18)
[2024-02-08] MEDS: COREG 12.5 MG PO SCH (22:18)
[2024-02-08] MEDS: ZOCOR 20MG PO SCH (22:18)
[2024-02-08] MEDS: BACTRIM DS TABLET PO SCH (22:18)
[2024-02-08] MEDS: Cymbalta 30 MG Capsule PO SCH (22:18)
[2024-02-08] MEDS: Lantus Insulin SQ SCH (22:19)
[2024-02-09 05:59] LABS: Absolute Neutrophil Ct (ANC) 3.71 x10^3/uL (1.78-5.38); BASOPHIL % 0.6 % (0.2-1.2); Basophil (Absolute #) 0.03 x10^3/uL (0.01-0.08); Eosinophil % 0.6 % (0.8-7.0); Eosinophil (Absolute #) 0.03 x10^3/uL (0.04-0.54); Hematocrit 26.7 % (40.1-51.0); Hemoglobin 8.5 g/dL (13.7-17.5); IMMATURE GRAN # 0.02 x10^3u/L (0.001-0.031); IMMATURE GRAN % 0.4 % (0.001-0.429); Lymphocyte (Absolute #) 0.77 x10^3/uL (1.32-3.57); Lymphocytes % 15.9 % (21.8-53.1); Mean Cell Volume 86.7 fL (79.0-92.2); Mean Corpuscular Hemoglobin 27.6 pg (25.7-32.2); Mean Corpuscular Hgb Concent. 31.8 g/dL (32.3-36.5); Mean Platelet Volume 9.3 fL (9.4-12.4); Monocyte (Absolute #) 0.29 x10^3/uL (0.30-0.82); Neutrophil % 76.5 % (34.0-67.9); Platelet Count 201 x10^3/uL (163-337); Red Blood Count 3.08 x10^6/uL (4.63-6.08); Red Cell Distribution Width 13.6 % (11.6-14.4); White Blood Count 4.9 x10^3/uL (4.23-9.07)
--- NOTE | 2024-02-09 06:02 | PCM.NOTE ---
Date and Time: 02/09/24 06 Subjective Assessment: HPI: is a 63 year old male with PMHX of a-fib, restless legs, anxiety, depression, Gerd, OA, Type II DM, Bronchitis, COPD, Sleep apnea, arrythmia, CHF, pacemaker, cardiac ablation, HTN, MRSA of neck, cataracts, and peripheral neuropathy who presented to ED with complaints of muscle spasms, BLE edema, and increased shortness of breath. Patient had recent amputation on his left index finger (MCGuirk)and was treated with IV Dapto. His Picc was removed last and antibiotic has been changed to Bactrim. It is unclear why the change in antibiotics but I suspect it is due to his increased CK level. He in on RA during interview. He is edematous in BUE/BLE with distended abdomen. In ED, vitals are stable. CXR non-acute. Lab findings remarkable for normocytic anemia, most likely secondary to CKD, hyponatremia- most likely psuedohyponatremia secondary to hyperglycemia, acute on chronic kidney failure with creat above baseline of 0.95 - now at 1.96, elevated trops x 3 - downtrending, mag level at 1.5, and BNP elevated at 9170. Patient received 10 units of insulin, magnesium 1gm, and fluid bolus of 500ml. Plan for treatment of MARILU, hypomagnesemia, and CHF exacerbation. 02/09/24: Met with patient bedside. BLE edema and abdominal distention increased today. Endorses several episodes of diarrhea last night. Labs with worsening creat. Will consult nephrology and cardiology. For now will start albumin/continue lasix. Patient on Bactrim per hand surgeon. Plan for echo, venous/art dopplers, abdominal US tomorrow. Denies fever,cough, sob, cp, abdominal pain, KOENIG, dizziness, N/V. - Review of Systems Constitutional: No Symptoms Eyes: No Symptoms Ears, Nose, & Throat: No Symptoms Respiratory: Short Of Breath Cardiac: Edema (BLE/BUE BLE -4+ pitting with pedal edema 4+ BUE 2+) Abdominal/Gastrointestinal: Diarrhea, Other (abdominal distention) Genitourinary Symptoms: No Symptoms Musculoskeletal: No Symptoms Neurological: No Symptoms Psychological: No Symptoms Endocrine: No Symptoms Hematologic/Lymphatic: No Symptoms Immunological/Allergic: No Symptoms Objective Exam General Appearance: no apparent distress Neurologic Exam: alert, oriented x 3, cooperative Skin Exam: normal color Eye Exam: PERRL Ears, Nose, Throat Exam: normal ENT inspection Neck Exam: normal inspection Respiratory Exam: crackles/rales Cardiovascular Exam: regular rate/rhythm, normal heart sounds Gastrointestinal/Abdomen Exam: distention Extremity Exam: inflammation, pedal edema (BLE edema 4+ pitting - pedal edema 4+ pitting BUE edema 2+), swelling Back Exam: normal inspection Male Genitalia Exam: deferred Rectal Exam: deferred Objective Data Vital Signs: Vital Signs - 24 hr Temp Pulse Resp BP BP Pulse Ox 02/09/24 04:00 98.1 F 76 22 111/58 96 02/08/24 23:39 98.7 F 80 24 134/91 96 02/08/24 19:57 98.7 F 79 22 182/80 96 02/08/24 16:00 99.6 F 73 22 166/83 99 02/08/24 11:42 98.4 F 72 22 124/74 97 02/08/24 09:55 97.9 F 74 22 141/88 99 02/08/24 09:53 73 20 98 02/08/24 08:47 97.9 F 74 22 141/88 99 02/08/24 08:30 122/71 02/08/24 08:02 75 13 141/75 100 02/08/24 07:31 76 27 H 99/85 02/08/24 07:30 78 25 H 02/08/24 07:20 29 H 02/08/24 07:10 83 20 02/08/24 07:02 76 22 02/08/24 06:36 99 02/08/24 06:30 88 32 H 164/101 02/08/24 06:03 78 13 170/85 Pain Assessment - Last Documented Pain Intensity 6 Pain Scale Used 0-10 Pain Scale Intake and Output: Intake & Output 02/06/24 02/07/24 02/08/24 02/09/24 11:59 11:59 11:59 11:59 Intake Total 240 3582 Output Total 950 Balance 240 2632 Weight 96.4 kg 99.8 kg Lab Results: Lab Results-Last 24 Hours 02/08/24 02/08/24 02/08/24 Range/Units 06:03 07:39 11:05 Sodium (135-145) mmol/L Potassium (3.5-5.1) mmol/L Chloride (98-107) mmol/L Carbon Dioxide (22-30) mmol/L Anion Gap (5-15) MEQ/L BUN (9-20) mg/dL Creatinine (0.66-1.25) mg/dL Estimated GFR ML/MIN Glucose (74-106) mg/dL POC Glucometer 220 H (74 to 106) mg/dL Hemoglobin A1c (4.5-6.0) % Calcium (8.4-10.2) mg/dL Magnesium (1.6-2.3) mg/dL Total Bilirubin (0.2-1.3) mg/dL AST (17-59) U/L ALT (0-50) U/L Alkaline Phosphatase (38-126) U/L Troponin I 0.119 H* 0.109 H* (0.000-0.033) ng/mL Serum Total Protein (6.3-8.2) g/dL Albumin (3.5-5.0) g/dL TSH 3rd Generation (0.470-4.680) mIU/L 02/08/24 02/08/24 02/08/24 Range/Units 11:13 11:16 11:16 Sodium 133 L (135-145) mmol/L Potassium 3.7 (3.5-5.1) mmol/L Chloride 103 (98-107) mmol/L Carbon Dioxide 21 L (22-30) mmol/L Anion Gap 12.8 (5-15) MEQ/L BUN 27 H (9-20) mg/dL Creatinine 1.90 H (0.66-1.25) mg/dL Estimated GFR 38.7 ML/MIN Glucose 231 H (74-106) mg/dL POC Glucometer 209 H (74 to 106) mg/dL Hemoglobin A1c 10.26 H (4.5-6.0) % Calcium 8.1 L (8.4-10.2) mg/dL Magnesium (1.6-2.3) mg/dL Total Bilirubin 0.50 (0.2-1.3) mg/dL AST 55 (17-59) U/L ALT 44 (0-50) U/L Alkaline Phosphatase 176 H (38-126) U/L Troponin I (0.000-0.033) ng/mL Serum Total Protein 6.3 (6.3-8.2) g/dL Albumin 3.0 L (3.5-5.0) g/dL TSH 3rd Generation (0.470-4.680) mIU/L 02/08/24 02/08/24 02/08/24 Range/Units 11:16 11:30 16:08 Sodium (135-145) mmol/L Potassium (3.5-5.1) mmol/L Chloride (98-107) mmol/L Carbon Dioxide (22-30) mmol/L Anion Gap (5-15) MEQ/L BUN (9-20) mg/dL Creatinine (0.66-1.25) mg/dL Estimated GFR ML/MIN Glucose (74-106) mg/dL POC Glucometer 291 H (74 to 106) mg/dL Hemoglobin A1c (4.5-6.0) % Calcium (8.4-10.2) mg/dL Magnesium 2.0 (1.6-2.3) mg/dL Total Bilirubin (0.2-1.3) mg/dL AST (17-59) U/L ALT (0-50) U/L Alkaline Phosphatase (38-126) U/L Troponin I (0.000-0.033) ng/mL Serum Total Protein (6.3-8.2) g/dL Albumin (3.5-5.0) g/dL TSH 3rd Generation 4.528 (0.470-4.680) mIU/L 02/08/24 02/08/24 Range/Units 17:44 21:26 Sodium (135-145) mmol/L Potassium (3.5-5.1) mmol/L Chloride (98-107) mmol/L Carbon Dioxide (22-30) mmol/L Anion Gap (5-15) MEQ/L BUN (9-20) mg/dL Creatinine (0.66-1.25) mg/dL Estimated GFR ML/MIN Glucose (74-106) mg/dL POC Glucometer 248 H 292 H (74 to 106) mg/dL Hemoglobin A1c (4.5-6.0) % Calcium (8.4-10.2) mg/dL Magnesium (1.6-2.3) mg/dL Total Bilirubin (0.2-1.3) mg/dL AST (17-59) U/L ALT (0-50) U/L Alkaline Phosphatase (38-126) U/L Troponin I (0.000-0.033) ng/mL Serum Total Protein (6.3-8.2) g/dL Albumin (3.5-5.0) g/dL TSH 3rd Generation (0.470-4.680) mIU/L Radiology Exams: Radiology Procedures Category Date Time Status CHEST 1 VIEW (PORTABLE) Stat Exams 02/08/24 02:53 Completed Assessment/Plan (1) Acute exacerbation of CHF (congestive heart failure) Current Visit: Yes Status: Acute Assessment & Plan: -Most recent echo on file 07/29/23 with EF at 33% IMPRESSION: 1) MODERATE DECREASE IN LEFT VENTRICULAR SYSTOLIC FUNCTION. 2) BORDERLINE CONCENTRIC LEFT VENTRICULAR HYPERTROPHY. 4) HYPOKINESIS OF THE INTERVENTRICULAR SEPTUM. 5) RIGHT VENTRICULAR PACING ELECTRODE. 6) MODERATE LEFT ATRIAL DILATATION. 7) MILD MITRAL REGURGITATION. 8) MILD TRICUSPID REGURGITATION. 9) NORMAL RIGHT VENTRICULAR SYSTOLIC PRESSURE -BNP at 9170 -Supplemental oxygen with spo2 goal > 92% -elevated HOB -CXR negative -Strict I&O with daily weights -ECHO when able -Optimize lytes K>4, MG > 2 -dc fluids -Lasix - monitor kidney function closely -albumin 25g x 1 dose -may need cards consult/neph consult 02/08: -consult cards -continue lasix -BLE edema not improving/abdomen more distended -US abdomen/ venous/arterial dopple BLE / echo -albumin Code(s): I50.9 - HEART FAILURE, UNSPECIFIED (2) Hypomagnesemia Current Visit: Yes Status: Acute Assessment & Plan: -Patient received 1gm of magnesium in ED, will monitor and replace as appropriate 02/08: -resolved Code(s): E83.42 - HYPOMAGNESEMIA (3) Pseudohyponatremia Current Visit: Yes Status: Acute Assessment & Plan: -mild hyponatremia most likely secondary to hyperglycemia on admission, will continue to monitor 02/08: -add fluid restriction 1.5L Code(s): R79.89 - OTHER SPECIFIED ABNORMAL FINDINGS OF BLOOD CHEMISTRY (4) Elevated troponin Current Visit: Yes Status: Acute Assessment & Plan: -0.0109<0.119<0.139 - downtrending -EKG NS -possibly due to renal function -denies chest pain -CXR with no acute process -most recent echo 07/29/23 EF at 33% -Do not suspect ACS Code(s): R79.89 - OTHER SPECIFIED ABNORMAL FINDINGS OF BLOOD CHEMISTRY (5) Amputation of left index finger Current Visit: Yes Status: Acute Assessment & Plan: -Received Dapto as OP now on Bactrim, will continue - CK level elevation most likely reflective of this Code(s): S68.111A - COMPLETE TRAUMATIC MCP AMPUTATION OF LEFT INDEX FINGER, INIT (6) Hyperglycemia Current Visit: Yes Status: Acute Assessment & Plan: -received 8 units in ED, no DKA/HHS will continue high dose SSI, hold Jardiance due to kidney function, mealtime lispro/glargine -Uncontrolled 02/08: -BS more stable today - morning at 175 -continue lispro/glargine/SSI Code(s): R73.9 - HYPERGLYCEMIA, UNSPECIFIED (7) Rhabdomyolysis Current Visit: Yes Status: Acute Assessment & Plan: -Believe CK elevation is due to recent use of DAPTO, will continue to monitor 02/08: -CK down-trending now at 497<1101 Code(s): M62.82 - RHABDOMYOLYSIS (8) Chronic a-fib Current Visit: No Status: Chronic Assessment & Plan: -continue home meds coreg/eliquis Code(s): I48.20 - CHRONIC ATRIAL FIBRILLATION, UNSPECIFIED (9) Type II diabetes mellitus Current Visit: No Status: Chronic Qualifiers: Diabetes mellitus complication status: with kidney complications Diabetes mellitus complication detail: with chronic kidney disease Assessment & Plan: -last A1c 10/17/23 was >14 - improved now at 10.26 -SSI -high dose/lispro/glargine -Hyperglycemic on arrival - pt is uncontrolled -reports recent issues with hypoglycemia so he did not take insulin- improved with ER giving 8 units - will continue to monitor -ADA diet -Advised glycemic control (10) Acute on chronic renal failure Current Visit: Yes Status: Acute Assessment & Plan: -Baseline creat around 0.95 - now at 1.96 -Avoid KERMIT/ARB/NSAIDS - hold Jardiance -PT in CHF exacerbation as well, will need to monitor closely with diuresis -consider neph consult 02/08: -worsening creat now at 2.05- challenging with diuresis for his CHF, will consult nephrology/cardiology -Received albumin/lasix yesterday - albumin today -mild acidosis will give oral bicarb with co2 level at 19 VTE: Eliquis Dispo: 2-3 days Full Code Code(s): I50.9 - HEART FAILURE, UNSPECIFIED (2) Hypomagnesemia Current Visit: Yes Status: Acute Code(s): E83.42 - HYPOMAGNESEMIA (3) Pseudohyponatremia Current Visit: Yes Status: Acute Code(s): R79.89 - OTHER SPECIFIED ABNORMAL FINDINGS OF BLOOD CHEMISTRY (4) Elevated troponin Current Visit: Yes Status: Acute Code(s): R79.89 - OTHER SPECIFIED ABNORMAL FINDINGS OF BLOOD CHEMISTRY (5) Amputation of left index finger Current Visit: Yes Status: Acute Code(s): S68.111A - COMPLETE TRAUMATIC MCP AMPUTATION OF LEFT INDEX FINGER, INIT (6) Hyperglycemia Current Visit: Yes Status: Acute Code(s): R73.9 - HYPERGLYCEMIA, UNSPECIFIED (7) Rhabdomyolysis Current Visit: Yes Status: Acute Code(s): M62.82 - RHABDOMYOLYSIS (8) Chronic a-fib Current Visit: No Status: Chronic Code(s): I48.20 - CHRONIC ATRIAL FIBRILLATION, UNSPECIFIED (9) Type II diabetes mellitus Current Visit: No Status: Chronic Qualifiers: Diabetes mellitus complication status: with kidney complications Diabetes mellitus complication detail: with chronic kidney disease (10) Acute on chronic renal failure Current Visit: Yes Status: Acute Code(s): N17.9 - ACUTE KIDNEY FAILURE, UNSPECIFIED; N18.9 - CHRONIC KIDNEY DISEASE, UNSPECIFIED
[2024-02-09 06:39] LABS: ALBUMIN 2.9 g/dL (3.5-5.0); ANION GAP 10.5 MEQ/L (5-15); BILIRUBIN,TOTAL 0.6 mg/dL (0.2-1.3); Calcium 7.9 mg/dL (8.4-10.2); Creatinine 1 2.05 mg/dL (0.66-1.25); EST GLOMERULAR FILTRATION RATE 35.3 ML/MIN; MAGNESIUM 1.9 mg/dL (1.6-2.3); Total Protein 5.9 g/dL (6.3-8.2)
[2024-02-09] MEDS: Klor Con PO SCH (09:45)
[2024-02-09] MEDS: HUMALOG SQ PRN (09:46)
[2024-02-09] MEDS: Lasix 40 MG/4 ML IV SCH (09:47)
[2024-02-09] MEDS: SODIUM BICARBONATE PO SCH (09:48)
[2024-02-09] MEDS ORDERED: NON-FORMULARY ITEM (Potassium Chloride [Potassium Chloride] 10 MEQ Capsule.Er) PO SCH (10:00)
[2024-02-09 11:10] LABS: 027 TOX PROD PRESUMPTIVE NEGATIVE (NEGATIVE); TOXIGENIC C. DIFF ORG NEGATIVE (NEGATIVE)
[2024-02-09] MEDS ORDERED: AlbuRx 25% 50ML VIAL IV ONE (11:34)
[2024-02-09] MEDS: TYLENOL 325 MG PO PRN (12:29)
[2024-02-09] MEDS: AlbuRx 25% 50ML VIAL*** 100 ML IV ONE (13:12)
[2024-02-09] MEDS: D50W 50 ml Abboject IV ONE (16:45)
[2024-02-09] MEDS ORDERED: HUMALOG SQ PRN (17:03)
--- NOTE | 2024-02-09 17:42 | PCM.CONS ---
History of Present Illness - Date of Consult Consulting Field Adjuster: DELVIN LI MD Requesting Provider: Attending Provider: JOSEPH RACHEL MD Primary Care Provider: PCP: ROGELIO CAVAZOS DO Consent was: Given for this tele-med encounter - Consult Narrative Reason for Consult: CHF exacerbation HPI: 63 year old male with PMHX of atrial fibrillation, CHF (SHF, EF 30%), HTN, s/p PM and ablation, and COPD admitted with progressive shortness of breath. Patient notes progressive shortness of breath with mild activity. He also has increasing lower extremity edema and abdominal bloating. States gaining 15-20 lbs. 1 pillow orthopnea. Denies any chest pain or palpitations. Patient states not using salt in his food at home. He is compliant with medications. He does have increased fluid intake - probably a few liters a day. Patient also noted to have muscle spasm and left index finger infection being treated with Bactrim currently. Patient given IV lasix, but noted to have slight increase in his creatinine. Patient states breathing better. cc:: The requesting physician will be sent a copy of the consult. Review of Systems - Review of Systems All systems: all other systems reviewed and were unremarkable - Past Medical History Past Medical History: Yes Neurological History: Peripheral Neuropathy ENT History: Cataracts Cardiac History: Arrhythmia, Congestive Heart Failure, High Cholesterol, Hypertension Respiratory History: Bronchitis, CHF, COPD, Sleep Apnea Endocrine Medical History: Diabetes Type II Musculoskelatal History: Arthritis, Osteoarthritis, Other GI Medical History: GERD, Gallbladder Disease History: Renal Disease Pyscho-Social History: Anxiety, Depression Male Reproductive Disorders: No Pertinent History Comment: a.fib, restless leg, bulging discs cervical spine, carpal tunnel - Past Surgical History Past Surgical History: Yes Neuro Surgical History: No Pertinent History Cardiac History: Pacemaker Respiratory Surgery: No Pertinent History GI Surgical History: Cholecystectomy Genitourinary Surgical Hx: No Pertinent History Musculskeletal Surgical Hx: Amputation Male Surgical History: No Pertinent History Other Surgical History: cardiac ablation, 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 - Social History Smoking Status: Never smoker Exposure to second hand smoke: No Alcohol: None Drug Use: none - Social Determinants of Health Will the patient participate in the screening: Yes Do you worry about a steady place to live?: No Do you have any problems with any of the following?: No known problems In the past 12 months,have you had to go without utilities?: No Have you or anyone in your house had to go without enough: No Transportation Issues: No Has anyone in your support network made you feel unsafe?: No Does the patient want assistance with any of the above?: No Comment: pt has no running water, would like assistance Medications & Allergies Home Medications: Home Medication List Atorvastatin Calcium [Lipitor 40Mg] 40 mg PO HS 07/28/23 [History Confirmed 02/08/24] Duloxetine HCl [Cymbalta] 60 mg PO BID 07/28/23 [History Confirmed 02/08/24] Insulin Aspart [NovoLOG Insulin] 3 unit SQ AC 07/28/23 [History Confirmed 02/08/24] Insulin Glargine [Lantus Insulin] 20 unit SQ BID 07/28/23 [History Confirmed 02/08/24] Omeprazole 40 mg PO DAILY PRN 07/28/23 [History Confirmed 02/08/24] Ropinirole 2Mg [Requip 2Mg Tab] 2 mg PO HS 07/28/23 [History Confirmed 02/08/24] Trazodone HCl 50 mg [Desyrel 50 mg] 50 mg PO HS PRN 07/28/23 [History Confirmed 02/08/24] Apixaban [Eliquis 2.5 mg Tablet] 5 mg PO BID 30 Days #60 tablet 07/30/23 [Rx Confirmed 02/08/24] Spironolactone 25 mg [Aldactone 25 MG] 25 mg PO DAILY 30 Days #30 tablet 07/30/23 [Rx Confirmed 02/08/24] Furosemide 40 mg [Lasix 40 MG] 40 mg PO DAILY 30 Days #30 tablet 07/31/23 [Rx Confirmed 02/08/24] Carvedilol 3.125 mg [Coreg 3.125 MG] 12.5 mg PO BID 10/16/23 [History Confirmed 02/08/24] Potassium Chloride 20 meq PO DAILY 10/16/23 [History Confirmed 02/08/24] Empagliflozin [Jardiance] 25 mg PO DAILY 01/29/24 [History Confirmed 02/08/24] lisinopriL [Zestril] 2.5 mg PO DAILY 01/29/24 [History Confirmed 02/08/24] Torsemide 20 mg [Demadex 20 mg] 50 mg PO DAILY 02/05/24 [History Confirmed 02/08/24] Gabapentin [Neurontin ] 100 mg PO TID 02/08/24 [History Confirmed 02/08/24] Allergies/Adverse Reactions: Allergies Allergy/AdvReac Type Severity Reaction Status Date / Time diphenhydramine Allergy Difficulty Verified 02/08/24 09:46 [From Benadryl] Breathing Iodinated Contrast Media Allergy Difficulty Verified 02/08/24 09:46 Breathing Exam - Vitals Vital Signs: Vital Signs - 24 hr Temp Pulse Resp BP Pulse Ox 02/09/24 16:00 97.3 F 73 19 160/80 98 02/09/24 11:59 97.8 F 73 20 98/60 99 02/09/24 07:51 97.7 F 73 18 115/58 96 02/09/24 04:00 98.1 F 76 22 111/58 96 02/08/24 23:39 98.7 F 80 24 134/91 96 02/08/24 19:57 98.7 F 79 22 182/80 96 General:: alert and oriented x 4, no acute distress HEENT: EOMI, anicteric sclera Cardiovascular Exam: regular rate/rhythm Respiratory Exam: diminished breath sounds SpO2: 98 Extremity Exam: edema Results Vital Signs: Vital Signs - 24 hr Temp Pulse Resp BP Pulse Ox 02/09/24 16:00 97.3 F 73 19 160/80 98 02/09/24 11:59 97.8 F 73 20 98/60 99 02/09/24 07:51 97.7 F 73 18 115/58 96 02/09/24 04:00 98.1 F 76 22 111/58 96 02/08/24 23:39 98.7 F 80 24 134/91 96 02/08/24 19:57 98.7 F 79 22 182/80 96 Pain Assessment - Last Documented Pain Intensity 6 Pain Scale Used 0-10 Pain Scale Intake and Output: Intake & Output 02/07/24 02/08/24 02/09/24 02/10/24 11:59 11:59 11:59 11:59 Intake Total 240 3822 335 Output Total 950 Balance 240 4322 335 Weight 96.4 kg 99.8 kg LAB: I have reviewed the Labs in [facility] [employer]. Radiology Exams: Radiology Procedures Category Date Time Status ARTERIAL BILAT LOWER EXTREMITY [US] Routine Exams 02/10/24 08:00 Ordered CHEST 1 VIEW (PORTABLE) Stat Exams 02/08/24 02:53 Completed ECHO W/2D AND DOPPLER [US] Routine Exams 02/10/24 08:00 Ordered UPPER ABDOMEN [US] Routine Exams 02/10/24 08:00 Ordered VENOUS BILATERAL EXTREMITY [US] Routine Exams 02/10/24 11:28 Ordered X-ray Interpretation: report reviewed by me - ECHO Echo: pending Assessment & Plan (1) Elevated troponin Current Visit: Yes Status: Acute Assessment & Plan: Mild elevation in troponin, likely demand ischemia from CHF exacerbation. No bin chest pain. Would monitor clinically. Code(s): R79.89 - OTHER SPECIFIED ABNORMAL FINDINGS OF BLOOD CHEMISTRY (2) Acute exacerbation of CHF (congestive heart failure) Current Visit: Yes Status: Acute Qualifiers: Heart failure type: systolic Qualified Code(s): I50.23 - Acute on chronic systolic (congestive) heart failure Assessment & Plan: History of systolic dysfunction. EF 30% by report. Pt notes increasing fluid retention with shortness of breath, edema, and abdominal distension. States having 15-20 lbs weight gain. Has MARILU and creatinine slightly increased after one dose of IV lasix. Currently, scheduled for lasix daily. Can try an additional dose of lasix tonight. If not adequate or renal function worsens, can consider IV lasix gtt at 5-10 mg/hr. Another option is to give a dose of either diuril or metolazone. Will wait for nephrology input before doing the drip or diuril/metolazone. Echo to be done tomorrow. Continue with low salt diet, 2 liters fluid restriction, and daily weights. Continue with coreg. Spironolactone and ARB/KERMIT-I on hold due to kidney function. Code(s): I50.9 - HEART FAILURE, UNSPECIFIED (3) Afib Current Visit: No Status: Acute Assessment & Plan: Stable heart rate. Continue to monitor on telemetry. Continue with coreg and eliquis. Can consider interrogating PM and if significant afib with RVR, can adjust medications for better rate-control. Patient may also be a candidate for ablation in the future if he has significant afib Code(s): I48.91 - UNSPECIFIED ATRIAL FIBRILLATION (4) HTN (hypertension) Current Visit: No Status: Acute Assessment & Plan: Elevated intermittently. Continue with coreg and lasix. Can add hydralazine and nitrates if tolerated. Will diurese first and then add above med if needed. Code(s): I10 - ESSENTIAL (PRIMARY) HYPERTENSION - Encounter Encounter: "The entirety of this encounter was performed via Telemedicine using audio and visual "
[2024-02-09] MEDS: Lasix 40 MG/4 ML IV ONE (19:40)
[2024-02-09] MEDS: DESYREL 50 MG PO PRN (21:59)
[2024-02-10 05:18] LABS: BASOPHIL % 0.8 % (0.2-1.2); Basophil (Absolute #) 0.03 x10^3/uL (0.01-0.08); Eosinophil % 1.3 % (0.8-7.0); Eosinophil (Absolute #) 0.05 x10^3/uL (0.04-0.54); Hematocrit 26.5 % (40.1-51.0); Hemoglobin 8.4 g/dL (13.7-17.5); IMMATURE GRAN # 0.02 x10^3u/L (0.001-0.031); IMMATURE GRAN % 0.5 % (0.001-0.429); Lymphocyte (Absolute #) 0.83 x10^3/uL (1.32-3.57); Lymphocytes % 20.8 % (21.8-53.1); Mean Cell Volume 87.7 fL (79.0-92.2); Mean Corpuscular Hemoglobin 27.8 pg (25.7-32.2); Mean Corpuscular Hgb Concent. 31.7 g/dL (32.3-36.5); Mean Platelet Volume 9.6 fL (9.4-12.4); Monocyte (Absolute #) 0.26 x10^3/uL (0.30-0.82); Monocytes % 6.5 % (5.3-12.2); Neutrophil % 70.1 % (34.0-67.9); Platelet Count 191 x10^3/uL (163-337); Red Blood Count 3.02 x10^6/uL (4.63-6.08); Red Cell Distribution Width 13.3 % (11.6-14.4)
[2024-02-10 05:45] LABS: ALBUMIN 2.7 g/dL (3.5-5.0); ANION GAP 11.1 MEQ/L (5-15); BILIRUBIN,TOTAL 0.4 mg/dL (0.2-1.3); Calcium 7.9 mg/dL (8.4-10.2); Creatinine 1 2.05 mg/dL (0.66-1.25); EST GLOMERULAR FILTRATION RATE 35.3 ML/MIN; Total Protein 5.6 g/dL (6.3-8.2)
[2024-02-10] MEDS: SODIUM BICARBONATE PO SCH (10:58)
--- NOTE | 2024-02-10 11:48 | XRAY ---
Indication: Bilateral edema. Two-dimensional sonogram and color Doppler imaging major venous vessel left and right leg performed. Comparison: July 29, 2023 No thrombus seen in the examined deep venous vessels left and right leg including greater saphenous vein. Veins demonstrate normal compressibility. Venous waveforms are normal with and without augmentation. Impression: Left and right legs again negative for DVT.
--- NOTE | 2024-02-10 13:48 | XRAY ---
Indication: Ascites. Four-quadrant abdominal sonogram performed to evaluate ascites. Tiny pockets of free fluid seen in all 4 quadrants. Largest in right upper quadrant measuring 1.0 x 8.2 cm between abdominal wall and liver, not safe for paracentesis.
[2024-02-10] MEDS: NORCO 5/325 MG PO PRN (15:57)
--- NOTE | 2024-02-10 16:17 | PCM.NOTE ---
Date and Time: 02/10/24 1608 Subjective Assessment: HPI: is a 63 year old male with PMHX of a-fib, restless legs, anxiety, depression, Gerd, OA, Type II DM, Bronchitis, COPD, Sleep apnea, arrythmia, CHF, pacemaker, cardiac ablation, HTN, MRSA of neck, cataracts, and peripheral neuropathy. He presented to ED on 02/08/24 with complaints of muscle spasms, BLE edema, and increased shortness of breath. Patient had recent amputation on his left index finger ( Dr. Barbosa)and was treated with IV Dapto. His Picc was removed last and antibiotic has been changed to Bactrim. It is unclear why the change in antibiotics but I suspect it is due to his increased CK level. He is edematous in BUE/BLE with distended abdomen. In ED, vitals were stable. CXR non-acute. Lab findings remarkable for normocytic anemia, most likely secondary to CKD, hyponatremia- most likely psuedohyponatremia secondary to hyperglycemia, acute on chronic kidney failure with creat above baseline of 0.95 - now at 1.96, elevated trops x 3 -downtrending, mag level at 1.5, and BNP elevated at 9170. Patient received 10 units of insulin, magnesium 1gm, and fluid bolus of 500ml. Plan for treatment of MARILU, hypomagnesemia, and CHF exacerbation. Yesterday BLE edema and abdominal distention increased. He endorsed several episodes of diarrhea. Nephrology and cardiology consulted. Gave albumin and lasix on 02/08. Echo pending. Venous duplex negative for DVT's. Art dopplers to be done tomorrow as US unable to do today. Abdominal US does not show enough fluid for paracentesis. He continues to c/o muscle spasms and chronic left shoulder pain. Kidney function is the same as yesterday. Awaiting nephrology recs. Cardiology charted possible lasix gtt but wanted nephrology input. Increased sodium bicarb to TID dosing as Co2 is 19 today. Pt denies any further concerns at this time. - Review of Systems Constitutional: No Fever, No Chills Eyes: No Symptoms Ears, Nose, & Throat: No Symptoms Respiratory: No Cough, No Short Of Breath Cardiac: No Chest Pain, No Edema, No Syncope Abdominal/Gastrointestinal: No Abdominal Pain, No Nausea, No Vomiting, No Diarrhea Genitourinary Symptoms: No Dysuria Musculoskeletal: Joint Pain (left shoulder), Myalgias, No Back Pain, No Neck Pain Skin: No Rash Neurological: No Dizziness, No Focal Weakness, No Sensory Changes Psychological: No Symptoms Endocrine: No Symptoms Hematologic/Lymphatic: No Symptoms Immunological/Allergic: No Symptoms Objective Exam General Appearance: no apparent distress, alert Neurologic Exam: alert, oriented x 3, cooperative, normal mood/affect, nml cerebellar function, sensation nml, No motor deficits Skin Exam: normal color, warm, dry Eye Exam: PERRL, EOMI, eyes nml inspection Ears, Nose, Throat Exam: normal ENT inspection, pharynx normal, moist mucous membranes Neck Exam: normal inspection, non-tender, supple, full range of motion Respiratory Exam: normal breath sounds, lungs clear, No respiratory distress Cardiovascular Exam: regular rate/rhythm, normal heart sounds Gastrointestinal/Abdomen Exam: soft, distention, No tenderness, No mass Extremity Exam: normal inspection, normal range of motion Back Exam: normal inspection, normal range of motion, No CVA tenderness, No vertebral tenderness Male Genitalia Exam: deferred Rectal Exam: deferred Objective Data Vital Signs: Vital Signs - 24 hr Temp Pulse Resp BP Pulse Ox 02/10/24 15:00 97.5 F 86 16 114/73 97 02/10/24 11:00 97.5 F 77 16 103/57 97 02/10/24 07:44 97.3 F 74 18 115/75 99 02/10/24 06:06 100/58 02/10/24 04:00 98.2 F 76 20 88/59 95 02/09/24 23:44 97.8 F 76 20 94/52 95 02/09/24 20:00 97.3 F 72 20 104/62 96 02/09/24 18:07 98 Pain Assessment - Last Documented Pain Intensity 6 Pain Scale Used 0-10 Pain Scale Intake and Output: Intake & Output 02/08/24 02/09/24 02/10/24 02/11/24 11:59 11:59 11:59 11:59 Intake Total 240 3822 1535 942 Output Total 950 1300 900 Balance 240 2872 235 42 Weight 96.4 kg 99.8 kg 99.5 kg Lab Results: Lab Results-Last 24 Hours 0602/09/24 02/09/24 Range/Units 16:30 16:35 16:55 WBC (4.23-9.07) x10^3/uL RBC (4.63-6.08) x10^6/uL Hgb (13.7-17.5) g/dL Hct (40.1-51.0) % MCV (79.0-92.2) fL MCH (25.7-32.2) pg MCHC (32.3-36.5) g/dL RDW (11.6-14.4) % Plt Count (163-337) x10^3/uL MPV (9.4-12.4) fL Gran % (34.0-67.9) % Immature Gran % (Auto) (0.001-0.429) % Nucleat RBC Rel Count (0.00-0.2) % Eos # (Auto) (0.04-0.54) x10^3/uL Immature Gran # (Auto) (0.001-0.031) x10^3u/L Absolute Lymphs (auto) (1.32-3.57) x10^3/uL Absolute Monos (auto) (0.30-0.82) x10^3/uL Absolute Nucleated RBC (0.00-0.012) x10^3u/L Lymphocytes % (21.8-53.1) % Monocytes % (5.3-12.2) % Eosinophils % (0.8-7.0) % Basophils % (0.2-1.2) % Absolute Granulocytes (1.78-5.38) x10^3/uL Basophils # (0.01-0.08) x10^3/uL Sodium (135-145) mmol/L Potassium (3.5-5.1) mmol/L Chloride (98-107) mmol/L Carbon Dioxide (22-30) mmol/L Anion Gap (5-15) MEQ/L BUN (9-20) mg/dL Creatinine (0.66-1.25) mg/dL Estimated GFR ML/MIN Glucose 134 H (74-106) mg/dL POC Glucometer TNP 32 L* Calcium (8.4-10.2) mg/dL Total Bilirubin (0.2-1.3) mg/dL AST (17-59) U/L ALT (0-50) U/L Alkaline Phosphatase (38-126) U/L Creatine Kinase (55-170) U/L Serum Total Protein (6.3-8.2) g/dL Albumin (3.5-5.0) g/dL 02/09/24 02/09/24 02/10/24 Range/Units 17:08 21:27 04:39 WBC 4.0 L (4.23-9.07) x10^3/uL RBC 3.02 L (4.63-6.08) x10^6/uL Hgb 8.4 L (13.7-17.5) g/dL Hct 26.5 L (40.1-51.0) % MCV 87.7 (79.0-92.2) fL MCH 27.8 (25.7-32.2) pg MCHC 31.7 L (32.3-36.5) g/dL RDW 13.3 (11.6-14.4) % Plt Count 191 (163-337) x10^3/uL MPV 9.6 (9.4-12.4) fL Gran % 70.1 H (34.0-67.9) % Immature Gran % (Auto) 0.5 H (0.001-0.429) % Nucleat RBC Rel Count 0.0 (0.00-0.2) % Eos # (Auto) 0.05 (0.04-0.54) x10^3/uL Immature Gran # (Auto) 0.02 (0.001-0.031) x10^3u/L Absolute Lymphs (auto) 0.83 L (1.32-3.57) x10^3/uL Absolute Monos (auto) 0.26 L (0.30-0.82) x10^3/uL Absolute Nucleated RBC 0.00 (0.00-0.012) x10^3u/L Lymphocytes % 20.8 L (21.8-53.1) % Monocytes % 6.5 (5.3-12.2) % Eosinophils % 1.3 (0.8-7.0) % Basophils % 0.8 (0.2-1.2) % Absolute Granulocytes 2.80 (1.78-5.38) x10^3/uL Basophils # 0.03 (0.01-0.08) x10^3/uL Sodium (135-145) mmol/L Potassium (3.5-5.1) mmol/L Chloride (98-107) mmol/L Carbon Dioxide (22-30) mmol/L Anion Gap (5-15) MEQ/L BUN (9-20) mg/dL Creatinine (0.66-1.25) mg/dL Estimated GFR ML/MIN Glucose (74-106) mg/dL POC Glucometer 135 H 121 H Calcium (8.4-10.2) mg/dL Total Bilirubin (0.2-1.3) mg/dL AST (17-59) U/L ALT (0-50) U/L Alkaline Phosphatase (38-126) U/L Creatine Kinase (55-170) U/L Serum Total Protein (6.3-8.2) g/dL Albumin (3.5-5.0) g/dL 02/10/24 02/10/24 02/10/24 Range/Units 04:39 04:39 07:33 WBC (4.23-9.07) x10^3/uL RBC (4.63-6.08) x10^6/uL Hgb (13.7-17.5) g/dL Hct (40.1-51.0) % MCV (79.0-92.2) fL MCH (25.7-32.2) pg MCHC (32.3-36.5) g/dL RDW (11.6-14.4) % Plt Count (163-337) x10^3/uL MPV (9.4-12.4) fL Gran % (34.0-67.9) % Immature Gran % (Auto) (0.001-0.429) % Nucleat RBC Rel Count (0.00-0.2) % Eos # (Auto) (0.04-0.54) x10^3/uL Immature Gran # (Auto) (0.001-0.031) x10^3u/L Absolute Lymphs (auto) (1.32-3.57) x10^3/uL Absolute Monos (auto) (0.30-0.82) x10^3/uL Absolute Nucleated RBC (0.00-0.012) x10^3u/L Lymphocytes % (21.8-53.1) % Monocytes % (5.3-12.2) % Eosinophils % (0.8-7.0) % Basophils % (0.2-1.2) % Absolute Granulocytes (1.78-5.38) x10^3/uL Basophils # (0.01-0.08) x10^3/uL Sodium 128 L (135-145) mmol/L Potassium 4.0 (3.5-5.1) mmol/L Chloride 103 (98-107) mmol/L Carbon Dioxide 19 L (22-30) mmol/L Anion Gap 11.1 (5-15) MEQ/L BUN 37 H (9-20) mg/dL Creatinine 2.05 H (0.66-1.25) mg/dL Estimated GFR 35.3 ML/MIN Glucose 109 H (74-106) mg/dL POC Glucometer 88 Calcium 7.9 L (8.4-10.2) mg/dL Total Bilirubin 0.40 (0.2-1.3) mg/dL AST 37 (17-59) U/L ALT 31 (0-50) U/L Alkaline Phosphatase 141 H (38-126) U/L Creatine Kinase 328 H (55-170) U/L Serum Total Protein 5.6 L (6.3-8.2) g/dL Albumin 2.7 L (3.5-5.0) g/dL 02/10/24 Range/Units 11:30 WBC (4.23-9.07) x10^3/uL RBC (4.63-6.08) x10^6/uL Hgb (13.7-17.5) g/dL Hct (40.1-51.0) % MCV (79.0-92.2) fL MCH (25.7-32.2) pg MCHC (32.3-36.5) g/dL RDW (11.6-14.4) % Plt Count (163-337) x10^3/uL MPV (9.4-12.4) fL Gran % (34.0-67.9) % Immature Gran % (Auto) (0.001-0.429) % Nucleat RBC Rel Count (0.00-0.2) % Eos # (Auto) (0.04-0.54) x10^3/uL Immature Gran # (Auto) (0.001-0.031) x10^3u/L Absolute Lymphs (auto) (1.32-3.57) x10^3/uL Absolute Monos (auto) (0.30-0.82) x10^3/uL Absolute Nucleated RBC (0.00-0.012) x10^3u/L Lymphocytes % (21.8-53.1) % Monocytes % (5.3-12.2) % Eosinophils % (0.8-7.0) % Basophils % (0.2-1.2) % Absolute Granulocytes (1.78-5.38) x10^3/uL Basophils # (0.01-0.08) x10^3/uL Sodium (135-145) mmol/L Potassium (3.5-5.1) mmol/L Chloride (98-107) mmol/L Carbon Dioxide (22-30) mmol/L Anion Gap (5-15) MEQ/L BUN (9-20) mg/dL Creatinine (0.66-1.25) mg/dL Estimated GFR ML/MIN Glucose (74-106) mg/dL POC Glucometer 142 H Calcium (8.4-10.2) mg/dL Total Bilirubin (0.2-1.3) mg/dL AST (17-59) U/L ALT (0-50) U/L Alkaline Phosphatase (38-126) U/L Creatine Kinase (55-170) U/L Serum Total Protein (6.3-8.2) g/dL Albumin (3.5-5.0) g/dL Radiology Exams: Radiology Procedures Category Date Time Status ABDOMINAL-LIMITED [US] Routine Exams 02/10/24 08:00 Completed ARTERIAL BILAT LOWER EXTREMITY [US] Routine Exams 02/11/24 08:00 Ordered ECHO W/2D AND DOPPLER [US] Routine Exams 02/10/24 08:00 Taken VENOUS BILATERAL EXTREMITY [US] Routine Exams 02/10/24 11:28 Completed Multi-Disciplinary Progress Notes: Multi-Disciplinary Progress Notes 02/10/24 14:13 Case Management Note by Shirley Rossi [facility]IED PATIENT IS HERE FOR OBS. THEY WILL NEED NOTIFIED AT TIME OF DC AT [phone]. THEY WILL NEED FAXED THE DC INSTRUCTIONS, DC MED LIST AND DC SUMMARY TO [phone] Initialized on 02/10/24 14:13 - END OF NOTE Assessment/Plan (1) Acute exacerbation of CHF (congestive heart failure) Current Visit: Yes Status: Acute Qualifiers: Heart failure type: systolic Qualified Code(s): I50.23 - Acute on chronic systolic (congestive) heart failure Assessment & Plan: -Most recent echo on file 07/29/23 with EF at 33% IMPRESSION: 1) MODERATE DECREASE IN LEFT VENTRICULAR SYSTOLIC FUNCTION. 2) BORDERLINE CONCENTRIC LEFT VENTRICULAR HYPERTROPHY. 4) HYPOKINESIS OF THE INTERVENTRICULAR SEPTUM. 5) RIGHT VENTRICULAR PACING ELECTRODE. 6) MODERATE LEFT ATRIAL DILATATION. 7) MILD MITRAL REGURGITATION. 8) MILD TRICUSPID REGURGITATION. 9) NORMAL RIGHT VENTRICULAR SYSTOLIC PRESSURE -BNP at 9170 on admission -Supplemental oxygen with spo2 goal > 92% -elevated HOB -CXR negative -Strict I&O with daily weights -Optimize lytes K>4, MG > 2 -dc fluids -Lasix - monitor kidney function closely -albumin 25g x 1 dose -cards consult- reviwed note and agree with plan of care -neph consult - pending -BLE edema- TEDS, elevate legs -US abdomen- Four-quadrant abdominal sonogram performed to evaluate ascites. Tiny pockets of free fluid seen in all 4 quadrants. Largest in right upper quadrant measuring 1.0 x 8.2 cm between abdominal wall and liver, not safe for paracentesis - venous duplex negative for DVT - arterial dopple BLE- 02/10 - echo pending -albumin - CARO hose, elevate legs to decrease edema Code(s): I50.9 - HEART FAILURE, UNSPECIFIED (2) Acute on chronic renal failure Current Visit: Yes Status: Acute Assessment & Plan: -Baseline creat around 0.95 -Avoid KERMIT/ARB/NSAIDS - hold Jardiance -PT in CHF exacerbation as well, will need to monitor closely with diuresis -worsening creat 2.05- challenging with diuresis for his CHF, will consult nephrology/cardiology -Received albumin/lasix -mild acidosis oral bicarb with co2 level at 19- bicarb increased to TID dosing Code(s): N17.9 - ACUTE KIDNEY FAILURE, UNSPECIFIED; N18.9 - CHRONIC KIDNEY DISEASE, UNSPECIFIED (3) Amputation of left index finger Current Visit: Yes Status: Acute Assessment & Plan: - [employer] -Received Dapto as OP now on Bactrim, will continue - CK level elevation most frank no reflective of this Code(s): S68.111A - COMPLETE TRAUMATIC MCP AMPUTATION OF LEFT INDEX FINGER, INIT (4) Elevated troponin Current Visit: Yes Status: Acute Assessment & Plan: -0.0109<0.119<0.139 - downtrending -EKG NS -possibly due to renal function -denies chest pain -CXR with no acute process -most recent echo 07/29/23 EF at 33% -Do not suspect ACS Code(s): R79.89 - OTHER SPECIFIED ABNORMAL FINDINGS OF BLOOD CHEMISTRY (5) Hyperglycemia Current Visit: Yes Status: Acute Assessment & Plan: -continue lispro/glargine/SSI Code(s): R73.9 - HYPERGLYCEMIA, UNSPECIFIED (6) Hypomagnesemia Current Visit: Yes Status: Resolved Assessment & Plan: - resolved Code(s): E83.42 - HYPOMAGNESEMIA (7) Pseudohyponatremia Current Visit: Yes Status: Acute Assessment & Plan: - fluid restriction 1.5L - Na+ 128 Code(s): R79.89 - OTHER SPECIFIED ABNORMAL FINDINGS OF BLOOD CHEMISTRY (8) Rhabdomyolysis Current Visit: Yes Status: Acute Assessment & Plan: -CK down-trending - trend Code(s): M62.82 - RHABDOMYOLYSIS (9) Chronic a-fib Current Visit: No Status: Chronic Assessment & Plan: -continue home meds coreg/eliquis - Tele Code(s): I48.20 - CHRONIC ATRIAL FIBRILLATION, UNSPECIFIED (10) Type II diabetes mellitus Current Visit: No Status: Chronic Qualifiers: Diabetes mellitus complication status: with kidney complications Diabetes mellitus complication detail: with chronic kidney disease Assessment & Plan: -last A1c 10/17/23 was >14 - improved now at 10.26 -SSI -high dose/lispro/glargine -Hyperglycemic on arrival - pt is uncontrolled -reports recent issues with hypoglycemia so he did not take insulin- improved with ER giving 8 units - will continue to monitor -ADA diet -Advised glycemic control VTE: Eliquis PPI: Protonix Next of KIN: Heath Santos [phone] D/C plan: tomorrow? Code status: Full
[2024-02-11 05:15] LABS: Absolute Neutrophil Ct (ANC) 2.57 x10^3/uL (1.78-5.38); BASOPHIL % 0.8 % (0.2-1.2); Basophil (Absolute #) 0.03 x10^3/uL (0.01-0.08); Eosinophil % 1.3 % (0.8-7.0); Eosinophil (Absolute #) 0.05 x10^3/uL (0.04-0.54); Hematocrit 24.9 % (40.1-51.0); IMMATURE GRAN # 0.01 x10^3u/L (0.001-0.031); IMMATURE GRAN % 0.3 % (0.001-0.429); Lymphocytes % 21.3 % (21.8-53.1); Mean Cell Volume 86.2 fL (79.0-92.2); Mean Corpuscular Hemoglobin 27.7 pg (25.7-32.2); Mean Corpuscular Hgb Concent. 32.1 g/dL (32.3-36.5); Mean Platelet Volume 9.8 fL (9.4-12.4); Neutrophil % 68.3 % (34.0-67.9); Platelet Count 205 x10^3/uL (163-337); Red Blood Count 2.89 x10^6/uL (4.63-6.08); Red Cell Distribution Width 13.5 % (11.6-14.4); White Blood Count 3.8 x10^3/uL (4.23-9.07)
[2024-02-11 05:30] LABS: ALBUMIN 2.7 g/dL (3.5-5.0); ANION GAP 10.5 MEQ/L (5-15); BILIRUBIN,TOTAL 0.2 mg/dL (0.2-1.3); Calcium 7.9 mg/dL (8.4-10.2); Creatinine 1 2.15 mg/dL (0.66-1.25); EST GLOMERULAR FILTRATION RATE 33.3 ML/MIN; Potassium 4.4 mmol/L (3.5-5.1); Total Protein 5.5 g/dL (6.3-8.2)
--- NOTE | 2024-02-11 11:38 | XRAY ---
Indication: Peripheral vascular disease. Two-dimensional sonogram and color Doppler imaging major arteries left and right leg performed. Comparison: None Examination right leg demonstrates widely patent common femoral, deep femoral, superficial femoral, popliteal, and dorsal pedal arteries. Mild arteriosclerotic disease in the remaining posterior tibial artery. Arterial waveforms are multiphasic throughout the right leg. Right arm brachial pressure is 124. Right ankle pressure is 131. Ankle-brachial index is 1.0, normal. Examination left leg demonstrate widely patent common femoral, deep femoral and proximal superficial femoral arteries. Mild scattered arteriosclerotic disease in the remaining superficial femoral, popliteal, posterior tibial, and dorsal pedal arteries. Arterial waveforms are multiphasic throughout left leg. Left arm brachial pressure is 129. Left ankle pressure is 137. Ankle-brachial index is 1.1, normal. Impression: Mild scattered arteriosclerotic disease in both lower legs as detailed. Negative for critical stenosis/obstruction. Normal ABIs bilaterally.
--- NOTE | 2024-02-11 12:03 | PCM.NOTE ---
Date and Time: 02/11/24 1143 Subjective Assessment: 02/10/24 is a 63 year old male with PMHX of a-fib, restless legs, anxiety, depression, Gerd, OA, Type II DM, Bronchitis, COPD, Sleep apnea, arrythmia, CHF, pacemaker, cardiac ablation, HTN, MRSA of neck, cataracts, and peripheral neuropathy. He presented to ED on 02/08/24 with complaints of muscle spasms, BLE edema, and increased shortness of breath. Patient had recent amputation on his left index finger ( Dr. Barbosa)and was treated with IV Dapto. His Picc was removed last and antibiotic has been changed to Bactrim. It is unclear why the change in antibiotics but I suspect it is due to his increased CK level. He is edematous in BUE/BLE with distended abdomen. In ED, vitals were stable. CXR non-acute. Lab findings remarkable for normocytic anemia, most likely secondary to CKD, hyponatremia- most likely psuedohyponatremia secondary to hyperglycemia, acute on chronic kidney failure with creat above baseline of 0.95 - now at 1.96, elevated trops x 3 -downtrending, mag level at 1.5, and BNP elevated at 9170. Patient received 10 units of insulin, magnesium 1gm, and fluid bolus of 500ml. Plan for treatment of MARILU, hypomagnesemia, and CHF exacerbation. Yesterday BLE edema and abdominal distention increased. He endorsed several episodes of diarrhea. Nephrology and cardiology consulted. Gave albumin and lasix on 02/08. Echo pending. Venous duplex negative for DVT's. Art dopplers to be done tomorrow as US unable to do today. Abdominal US does not show enough fluid for paracentesis. He continues to c/o muscle spasms and chronic left shoulder pain. Kidney function is the same as yesterday. Awaiting nephrology recs. Cardiology charted possible lasix gtt but wanted nephrology input. Increased sodium bicarb to TID dosing as Co2 is 19 today. Pt denies any further concerns at this time. 02/11/24 Pt sitting up in bed. MARILU has worsened. Nephrology started pt on lasix gtt. CK improved, 313. Na+ better 130. Will continue fluid restriction. Continue TEDs and to elevate legs to decrease BLLE. Pt is anxious to d/c and states he is feeling better. Discussed in detail labs and plan of care. Pt was having muscle spasms again in his legs. Muscle relaxer started. He denies CP, SOB, abd. pain, N/V/D. - Review of Systems Constitutional: No Fever, No Chills Eyes: No Symptoms Ears, Nose, & Throat: No Symptoms Respiratory: No Cough, No Short Of Breath Cardiac: Edema (BLLE), No Chest Pain, No Syncope Abdominal/Gastrointestinal: No Abdominal Pain, No Nausea, No Vomiting, No Diarrhea Genitourinary Symptoms: No Dysuria Musculoskeletal: Other (legs cramps), No Back Pain, No Neck Pain Skin: No Rash Neurological: No Dizziness, No Focal Weakness, No Sensory Changes Psychological: No Symptoms Endocrine: No Symptoms Hematologic/Lymphatic: No Symptoms Immunological/Allergic: No Symptoms Objective Exam General Appearance: no apparent distress, alert Neurologic Exam: alert, oriented x 3, cooperative, normal mood/affect, nml cerebellar function, sensation nml, No motor deficits Skin Exam: normal color, warm, dry, other (left hand wrapped from recent procedure) Eye Exam: PERRL, EOMI, eyes nml inspection Ears, Nose, Throat Exam: normal ENT inspection, pharynx normal, moist mucous membranes Neck Exam: normal inspection, non-tender, supple, full range of motion Respiratory Exam: normal breath sounds, lungs clear, No respiratory distress Cardiovascular Exam: regular rate/rhythm, normal heart sounds, edema (BLLE +3 edema) Gastrointestinal/Abdomen Exam: soft, No tenderness, No mass Extremity Exam: normal inspection, normal range of motion Back Exam: normal inspection, normal range of motion, No CVA tenderness, No vertebral tenderness Male Genitalia Exam: deferred Rectal Exam: deferred Objective Data Vital Signs: Vital Signs - 24 hr Temp Pulse Resp BP Pulse Ox 02/11/24 11:20 97.9 F 73 19 118/73 95 02/11/24 07:24 97.7 F 75 18 112/58 97 02/11/24 04:00 97.8 F 78 18 106/65 97 02/10/24 23:51 98.2 F 80 18 95/57 96 02/10/24 20:00 97.8 F 75 18 110/56 97 02/10/24 15:00 97.5 F 86 16 114/73 97 Pain Assessment - Last Documented Pain Intensity 0 Pain Scale Used 0-10 Pain Scale Intake and Output: Intake & Output 02/08/24 02/09/24 02/10/24 02/11/24 11:59 11:59 11:59 11:59 Intake Total 240 3822 1535 1804 Output Total 950 1300 1200 Balance 240 2872 235 604 Weight 96.4 kg 99.8 kg 99.5 kg 99 kg Lab Results: Lab Results-Last 24 Hours 02/10/24 02/10/24 02/11/24 Range/Units 16:19 21:59 04:40 WBC 3.8 L (4.23-9.07) x10^3/uL RBC 2.89 L (4.63-6.08) x10^6/uL Hgb 8.0 L (13.7-17.5) g/dL Hct 24.9 L (40.1-51.0) % MCV 86.2 (79.0-92.2) fL MCH 27.7 (25.7-32.2) pg MCHC 32.1 L (32.3-36.5) g/dL RDW 13.5 (11.6-14.4) % Plt Count 205 (163-337) x10^3/uL MPV 9.8 (9.4-12.4) fL Gran % 68.3 H (34.0-67.9) % Immature Gran % (Auto) 0.3 (0.001-0.429) % Nucleat RBC Rel Count 0.0 (0.00-0.2) % Eos # (Auto) 0.05 (0.04-0.54) x10^3/uL Immature Gran # (Auto) 0.01 (0.001-0.031) x10^3u/L Absolute Lymphs (auto) 0.80 L (1.32-3.57) x10^3/uL Absolute Monos (auto) 0.30 (0.30-0.82) x10^3/uL Absolute Nucleated RBC 0.00 (0.00-0.012) x10^3u/L Lymphocytes % 21.3 L (21.8-53.1) % Monocytes % 8.0 (5.3-12.2) % Eosinophils % 1.3 (0.8-7.0) % Basophils % 0.8 (0.2-1.2) % Absolute Granulocytes 2.57 (1.78-5.38) x10^3/uL Basophils # 0.03 (0.01-0.08) x10^3/uL Sodium (135-145) mmol/L Potassium (3.5-5.1) mmol/L Chloride (98-107) mmol/L Carbon Dioxide (22-30) mmol/L Anion Gap (5-15) MEQ/L BUN (9-20) mg/dL Creatinine (0.66-1.25) mg/dL Estimated GFR ML/MIN Glucose (74-106) mg/dL POC Glucometer 139 H 159 H (74 to 106) mg/dL Calcium (8.4-10.2) mg/dL Total Bilirubin (0.2-1.3) mg/dL AST (17-59) U/L ALT (0-50) U/L Alkaline Phosphatase (38-126) U/L Creatine Kinase (55-170) U/L Serum Total Protein (6.3-8.2) g/dL Albumin (3.5-5.0) g/dL 02/11/24 02/11/24 02/11/24 Range/Units 04:40 04:40 06:56 WBC (4.23-9.07) x10^3/uL RBC (4.63-6.08) x10^6/uL Hgb (13.7-17.5) g/dL Hct (40.1-51.0) % MCV (79.0-92.2) fL MCH (25.7-32.2) pg MCHC (32.3-36.5) g/dL RDW (11.6-14.4) % Plt Count (163-337) x10^3/uL MPV (9.4-12.4) fL Gran % (34.0-67.9) % Immature Gran % (Auto) (0.001-0.429) % Nucleat RBC Rel Count (0.00-0.2) % Eos # (Auto) (0.04-0.54) x10^3/uL Immature Gran # (Auto) (0.001-0.031) x10^3u/L Absolute Lymphs (auto) (1.32-3.57) x10^3/uL Absolute Monos (auto) (0.30-0.82) x10^3/uL Absolute Nucleated RBC (0.00-0.012) x10^3u/L Lymphocytes % (21.8-53.1) % Monocytes % (5.3-12.2) % Eosinophils % (0.8-7.0) % Basophils % (0.2-1.2) % Absolute Granulocytes (1.78-5.38) x10^3/uL Basophils # (0.01-0.08) x10^3/uL Sodium 130 L (135-145) mmol/L Potassium 4.4 (3.5-5.1) mmol/L Chloride 102 (98-107) mmol/L Carbon Dioxide 22 (22-30) mmol/L Anion Gap 10.5 (5-15) MEQ/L BUN 38 H (9-20) mg/dL Creatinine 2.15 H (0.66-1.25) mg/dL Estimated GFR 33.3 ML/MIN Glucose 120 H (74-106) mg/dL POC Glucometer 76 (74 to 106) mg/dL Calcium 7.9 L (8.4-10.2) mg/dL Total Bilirubin 0.20 (0.2-1.3) mg/dL AST 36 (17-59) U/L ALT 32 (0-50) U/L Alkaline Phosphatase 149 H (38-126) U/L Creatine Kinase 313 H (55-170) U/L Serum Total Protein 5.5 L (6.3-8.2) g/dL Albumin 2.7 L (3.5-5.0) g/dL 02/11/24 Range/Units 11:04 WBC (4.23-9.07) x10^3/uL RBC (4.63-6.08) x10^6/uL Hgb (13.7-17.5) g/dL Hct (40.1-51.0) % MCV (79.0-92.2) fL MCH (25.7-32.2) pg MCHC (32.3-36.5) g/dL RDW (11.6-14.4) % Plt Count (163-337) x10^3/uL MPV (9.4-12.4) fL Gran % (34.0-67.9) % Immature Gran % (Auto) (0.001-0.429) % Nucleat RBC Rel Count (0.00-0.2) % Eos # (Auto) (0.04-0.54) x10^3/uL Immature Gran # (Auto) (0.001-0.031) x10^3u/L Absolute Lymphs (auto) (1.32-3.57) x10^3/uL Absolute Monos (auto) (0.30-0.82) x10^3/uL Absolute Nucleated RBC (0.00-0.012) x10^3u/L Lymphocytes % (21.8-53.1) % Monocytes % (5.3-12.2) % Eosinophils % (0.8-7.0) % Basophils % (0.2-1.2) % Absolute Granulocytes (1.78-5.38) x10^3/uL Basophils # (0.01-0.08) x10^3/uL Sodium (135-145) mmol/L Potassium (3.5-5.1) mmol/L Chloride (98-107) mmol/L Carbon Dioxide (22-30) mmol/L Anion Gap (5-15) MEQ/L BUN (9-20) mg/dL Creatinine (0.66-1.25) mg/dL Estimated GFR ML/MIN Glucose (74-106) mg/dL POC Glucometer 125 H (74 to 106) mg/dL Calcium (8.4-10.2) mg/dL Total Bilirubin (0.2-1.3) mg/dL AST (17-59) U/L ALT (0-50) U/L Alkaline Phosphatase (38-126) U/L Creatine Kinase (55-170) U/L Serum Total Protein (6.3-8.2) g/dL Albumin (3.5-5.0) g/dL Radiology Exams: Radiology Procedures Category Date Time Status ABDOMINAL-LIMITED [US] Routine Exams 02/10/24 08:00 Completed ARTERIAL BILAT LOWER EXTREMITY [US] Routine Exams 02/11/24 08:00 Completed ECHO W/2D AND DOPPLER [US] Routine Exams 02/10/24 08:00 Taken VENOUS BILATERAL EXTREMITY [US] Routine Exams 02/10/24 11:28 Completed Multi-Disciplinary Progress Notes: Multi-Disciplinary Progress Notes 02/10/24 14:13 Case Management Note by Shirley Rossi PATIENT REPORTS HE HAS [facility]. THEY WERE NOTIFIED PATIENT IS HERE FOR OBS. THEY WILL NEED NOTIFIED AT TIME OF DC AT [phone]. THEY WILL NEED FAXED THE DC INSTRUCTIONS, DC MED LIST AND DC SUMMARY TO [phone] Initialized on 02/10/24 14:13 - END OF NOTE Assessment/Plan (1) Acute exacerbation of CHF (congestive heart failure) Current Visit: Yes Status: Acute Qualifiers: Heart failure type: systolic Qualified Code(s): I50.23 - Acute on chronic systolic (congestive) heart failure Code(s): I50.9 - HEART FAILURE, UNSPECIFIED (2) Acute on chronic renal failure Current Visit: Yes Status: Acute Code(s): N17.9 - ACUTE KIDNEY FAILURE, UNSPECIFIED; N18.9 - CHRONIC KIDNEY DISEASE, UNSPECIFIED (3) Amputation of left index finger Current Visit: Yes Status: Acute Code(s): S68.111A - COMPLETE TRAUMATIC MCP AMPUTATION OF LEFT INDEX FINGER, INIT (4) Elevated troponin Current Visit: Yes Status: Acute Code(s): R79.89 - OTHER SPECIFIED ABNORMAL FINDINGS OF BLOOD CHEMISTRY (5) Hyperglycemia Current Visit: Yes Status: Acute Code(s): R73.9 - HYPERGLYCEMIA, UNSPECIFIED (6) Hypomagnesemia Current Visit: Yes Status: Resolved Code(s): E83.42 - HYPOMAGNESEMIA (7) Pseudohyponatremia Current Visit: Yes Status: Acute Code(s): R79.89 - OTHER SPECIFIED ABNORMAL FINDINGS OF BLOOD CHEMISTRY (8) Rhabdomyolysis Current Visit: Yes Status: Acute Code(s): M62.82 - RHABDOMYOLYSIS (9) Chronic a-fib Current Visit: No Status: Chronic Code(s): I48.20 - CHRONIC ATRIAL FIBRILLATION, UNSPECIFIED (10) Type II diabetes mellitus Current Visit: No Status: Chronic Qualifiers: Diabetes mellitus complication status: with kidney complications Diabetes mellitus complication detail: with chronic kidney disease Assessment & Plan: (1) Acute exacerbation of CHF (congestive heart failure) Current Visit: Yes Status: Acute Qualifiers: Heart failure type: systolic Qualified Code(s): I50.23 - Acute on chronic systolic (congestive) heart failure Assessment & Plan: -Most recent echo on file 07/29/23 with EF at 33% IMPRESSION: 1) MODERATE DECREASE IN LEFT VENTRICULAR SYSTOLIC FUNCTION. 2) BORDERLINE CONCENTRIC LEFT VENTRICULAR HYPERTROPHY. 4) HYPOKINESIS OF THE INTERVENTRICULAR SEPTUM. 5) RIGHT VENTRICULAR PACING ELECTRODE. 6) MODERATE LEFT ATRIAL DILATATION. 7) MILD MITRAL REGURGITATION. 8) MILD TRICUSPID REGURGITATION. 9) NORMAL RIGHT VENTRICULAR SYSTOLIC PRESSURE -BNP at 9170 on admission -Supplemental oxygen with spo2 goal > 92% -elevated HOB -CXR negative -Strict I&O with daily weights -Optimize lytes K>4, MG > 2 -dc fluids -Lasix - monitor kidney function closely -albumin 25g x 1 dose -cards consult- reviewed note and agree with plan of care -neph consult - pending -BLE edema- TEDS, elevate legs -US abdomen- Four-quadrant abdominal sonogram performed to evaluate ascites. Tiny pockets of free fluid seen in all 4 quadrants. Largest in right upper quadrant measuring 1.0 x 8.2 cm between abdominal wall and liver, not safe for paracentesis - venous duplex negative for DVT - arterial doppler BLE- 02/10 - echo pending - albumin - CARO hose, elevate legs to decrease edema Code(s): I50.9 - HEART FAILURE, UNSPECIFIED (2) Acute on chronic renal failure Current Visit: Yes Status: Acute Assessment & Plan: -Baseline creat around 0.95 -Avoid KERMIT/ARB/NSAIDS - hold Jardiance -PT in CHF exacerbation as well, will need to monitor closely with diuresis -worsening creat 2.05- challenging with diuresis for his CHF, will consult nephrology/cardiology -Received albumin/lasix -mild acidosis oral bicarb with co2 level at 19- bicarb increased to TID dosing 02/10 - nephrology recommended lasix gtt to be started- pt to be tx to ICU per policy of needing Lasix gtt - Creat 2.15 - worse Code(s): N17.9 - ACUTE KIDNEY FAILURE, UNSPECIFIED; N18.9 - CHRONIC KIDNEY DISEASE, UNSPECIFIED (3) Amputation of left index finger Current Visit: Yes Status: Acute Assessment & Plan: - 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 -Received Dapto as OP now on Bactrim, will continue - CK level elevation most likely reflective of this Code(s): S68.111A - COMPLETE TRAUMATIC MCP AMPUTATION OF LEFT INDEX FINGER, INIT (4) Elevated troponin Current Visit: Yes Status: Acute Assessment & Plan: -0.0109<0.119<0.139 - downtrending -EKG NS -possibly due to renal function -denies chest pain -CXR with no acute process -most recent echo 07/29/23 EF at 33% -Do not suspect ACS Code(s): R79.89 - OTHER SPECIFIED ABNORMAL FINDINGS OF BLOOD CHEMISTRY (5) Hyperglycemia Current Visit: Yes Status: Acute Assessment & Plan: -continue lispro/glargine/SSI Code(s): R73.9 - HYPERGLYCEMIA, UNSPECIFIED (6) Hypomagnesemia Current Visit: Yes Status: Resolved Assessment & Plan: - resolved Code(s): E83.42 - HYPOMAGNESEMIA (7) Pseudohyponatremia Current Visit: Yes Status: Acute Assessment & Plan: - fluid restriction 1.5L - Na+ 128 6/18 - Na+ 130- improved- trend Code(s): R79.89 - OTHER SPECIFIED ABNORMAL FINDINGS OF BLOOD CHEMISTRY (8) Rhabdomyolysis Current Visit: Yes Status: Acute Assessment & Plan: -CK down-trending - trend Code(s): M62.82 - RHABDOMYOLYSIS (9) Chronic a-fib Current Visit: No Status: Chronic Assessment & Plan: -continue home meds coreg/eliquis - Tele Code(s): I48.20 - CHRONIC ATRIAL FIBRILLATION, UNSPECIFIED (10) Type II diabetes mellitus Current Visit: No Status: Chronic Qualifiers: Diabetes mellitus complication status: with kidney complications Diabetes mellitus complication detail: with chronic kidney disease Assessment & Plan: -last A1c 10/17/23 was >14 - improved now at 10.26 -SSI -high dose/lispro/glargine -Hyperglycemic on arrival - pt is uncontrolled -reports recent issues with hypoglycemia so he did not take insulin- improved with ER giving 8 units - will continue to monitor -ADA diet -Advised glycemic control VTE: Eliquis PPI: Protonix Next of KIN: Heath Santos [phone] D/C plan: 1-2 days Code status: Full
[2024-02-11] MEDS: Cyclobenzaprine 10 MG PO ONE ×2 (12:43→16:30)
[2024-02-11] MEDS: PHARMACY DOSING REQUEST MC ONE (15:07)
[2024-02-11] MEDS: Furosemide 100mg/10 ml Vial*** 100 MG in Sodium Chloride 0.9% 90 ML IV SCH (16:23)
[2024-02-11 18:36] LABS: ANION GAP 12.8 MEQ/L (5-15); Potassium 4.7 mmol/L (3.5-5.1)
[2024-02-11] MEDS: Ativan 2 MG/1 ML VIAL IV ONE ×2 (18:44→19:31)
[2024-02-11] MEDS: Haldol 5 MG IV PRN (20:18)
[2024-02-11] MEDS ORDERED: D50W 50 ml Abboject IV ONE (20:31)
[2024-02-11] MEDS: D50W 50 ml Abboject IV PRN (20:38)
[2024-02-11] MEDS: PERCOCET TABLET 5/325MG PO ONE (22:21)
[2024-02-12] MEDS: DEXTROSE 10% 250 ML 250 ML IV SCH (00:19)
[2024-02-12 04:54] LABS: Absolute Neutrophil Ct (ANC) 4.34 x10^3/uL (1.78-5.38); BASOPHIL % 0.5 % (0.2-1.2); Basophil (Absolute #) 0.03 x10^3/uL (0.01-0.08); Eosinophil % 0.2 % (0.8-7.0); Eosinophil (Absolute #) 0.01 x10^3/uL (0.04-0.54); Hematocrit 28.9 % (40.1-51.0); Hemoglobin 9.3 g/dL (13.7-17.5); IMMATURE GRAN # 0.01 x10^3u/L (0.001-0.031); IMMATURE GRAN % 0.2 % (0.001-0.429); Lymphocyte (Absolute #) 0.81 x10^3/uL (1.32-3.57); Lymphocytes % 14.7 % (21.8-53.1); Mean Cell Volume 85.8 fL (79.0-92.2); Mean Corpuscular Hemoglobin 27.6 pg (25.7-32.2); Mean Corpuscular Hgb Concent. 32.2 g/dL (32.3-36.5); Mean Platelet Volume 9.8 fL (9.4-12.4); Monocyte (Absolute #) 0.31 x10^3/uL (0.30-0.82); Monocytes % 5.6 % (5.3-12.2); Neutrophil % 78.8 % (34.0-67.9); Platelet Count 238 x10^3/uL (163-337); Red Blood Count 3.37 x10^6/uL (4.63-6.08); Red Cell Distribution Width 13.5 % (11.6-14.4); White Blood Count 5.5 x10^3/uL (4.23-9.07)
[2024-02-12 05:25] LABS: ALBUMIN 3.3 g/dL (3.5-5.0); ANION GAP 12.6 MEQ/L (5-15); BILIRUBIN,TOTAL 0.4 mg/dL (0.2-1.3); Calcium 8.2 mg/dL (8.4-10.2); Creatinine 1 2.41 mg/dL (0.66-1.25); EST GLOMERULAR FILTRATION RATE 29.1 ML/MIN; Potassium 5.3 mmol/L (3.5-5.1); Total Protein 6.5 g/dL (6.3-8.2)
[2024-02-12] MEDS: VELTASSA PO STA (08:30)
--- NOTE | 2024-02-12 12:43 | PCM.DS ---
Discharge Summary Date of Admission: 02/08/24 08:44 Date of Discharge: 02/12/24 Admitting Physician: JOSEPH RACHEL MD Consults: Consults on Case 02/09/24 11:21 Consult Cardiology ROUTINE Consult Nephrology ROUTINE Primary Care Provider: ROGELIO CAVAZOS DO Allergies Allergies diphenhydramine [From Benadryl] Allergy (Verified 02/08/24 09:46) Difficulty Breathing Iodinated Contrast Media Allergy (Verified 02/08/24 09:46) Difficulty Breathing Hospital Summary - Hospital Course Hospital Course: 02/10/24 is a 63 year old male with PMHX of a-fib, restless legs, anxiety, depression, Gerd, OA, Type II DM, Bronchitis, COPD, Sleep apnea, arrythmia, CHF, pacemaker, cardiac ablation, HTN, MRSA of neck, cataracts, and peripheral neuropathy. He presented to ED on 02/08/24 with complaints of muscle spasms, BLE edema, and increased shortness of breath. Patient had recent amputation on his left index finger ( Dr. Barbosa)and was treated with IV Dapto. His Picc was removed last and antibiotic has been changed to Bactrim. It is unclear why the change in antibiotics but I suspect it is due to his increased CK level. He is edematous in BUE/BLE with distended abdomen. In ED, vitals were stable. CXR non-acute. Lab findings remarkable for normocytic anemia, most likely secondary to CKD, hyponatremia- most likely psuedohyponatremia secondary to hyperglycemia, acute on chronic kidney failure with creat above baseline of 0.95 - now at 1.96, elevated trops x 3 -downtrending, mag level at 1.5, and BNP elevated at 9170. Patient received 10 units of insulin, magnesium 1gm, and fluid bolus of 500ml. Plan for treatment of MARILU, hypomagnesemia, and CHF exacerbation. Yesterday BLE edema and abdominal distention increased. He endorsed several episodes of diarrhea. Nephrology and cardiology consulted. Gave albumin and lasix on 02/08. Echo pending. Venous duplex negative for DVT's. Art dopplers to be done tomorrow as US unable to do today. Abdominal US does not show enough fluid for paracentesis. He continues to c/o muscle spasms and chronic left shoulder pain. Kidney function is the same as yesterday. Awaiting nephrology recs. Cardiology charted possible lasix gtt but wanted nephrology input. Increased sodium bicarb to TID dosing as Co2 is 19 today. Pt denies any further concerns at this time. 02/11/24 Pt sitting up in bed. MARILU has worsened. Nephrology started pt on lasix gtt. CK improved, 313. Na+ better 130. Will continue fluid restriction. Continue TEDs and to elevate legs to decrease BLLE. Pt is anxious to d/c and states he is feeling better. Discussed in detail labs and plan of care. Pt was having muscle spasms again in his legs. Muscle relaxer started. He denies CP, SOB, abd. pain, N/V/D. 02/12/24 Pt sitting up in chair eating breakfast this morning. Pt starting behaving oddly last night and moving around in bed as if he was withdrawing from something. At that time he stated he was having muscle spasms in arms and legs and reported the only thing that works for him is Morphine. He was given Ativan which did not help, then Haldol and this helped him to sleep all night. He reports feeling groggy this morning. He denies any drug or alcohol abuse. CK is elevated at 1002 from moving all around last night. Moyer was placed lat night for urinary ret ention. Will d/c today as he is awake and alert. Potassium 5.3- Veltassa ordered. Kidney function has worsened. Lasix drip stopped last night by overnight hospitalist. D5 IV fluids started as glucose dropped into 40's. Since pt is eatign this AM IVF stopped and lasix gtt restarted. This is day 5 and pt is not improving much will transfer to higher level of care for IP nephrology care. Pt is currently in our ICU. Glucose being checked Q2 hours. He reports no muscle spasms today. He denies CP, Abd. pain, N/V/D. - Vitals & Intake/Output Vital Signs: Vital Signs Temperature 97.6 F 02/12/24 11:57 Pulse Rate 76 02/12/24 12:00 Respiratory Rate 14 02/12/24 11:57 Blood Pressure 116/79 02/12/24 11:57 O2 Sat by Pulse Oximetry 98 02/12/24 11:57 Intake & Output: Intake & Output 02/10/24 02/11/24 02/12/24 02/13/24 11:59 11:59 11:59 11:59 Intake Total 1535 1804 861 Output Total 1300 1200 2400 Balance 235 604 -1539 Weight 99.5 kg 99 kg 100.9 kg - Lab Result Diagrams: 02/12/24 04:17 02/12/24 04:17 Lab Results-Last 24 Hrs: Lab Results-Last 24 Hours 02/11/24 02/11/24 02/11/24 Range/Units 16:03 18:15 18:57 WBC (4.23-9.07) x10^3/uL RBC (4.63-6.08) x10^6/uL Hgb (13.7-17.5) g/dL Hct (40.1-51.0) % MCV (79.0-92.2) fL MCH (25.7-32.2) pg MCHC (32.3-36.5) g/dL RDW (11.6-14.4) % Plt Count (163-337) x10^3/uL MPV (9.4-12.4) fL Gran % (34.0-67.9) % Immature Gran % (Auto) (0.001-0.429) % Nucleat RBC Rel Count (0.00-0.2) % Eos # (Auto) (0.04-0.54) x10^3/uL Immature Gran # (Auto) (0.001-0.031) x10^3u/L Absolute Lymphs (auto) (1.32-3.57) x10^3/uL Absolute Monos (auto) (0.30-0.82) x10^3/uL Absolute Nucleated RBC (0.00-0.012) x10^3u/L Lymphocytes % (21.8-53.1) % Monocytes % (5.3-12.2) % Eosinophils % (0.8-7.0) % Basophils % (0.2-1.2) % Absolute Granulocytes (1.78-5.38) x10^3/uL Basophils # (0.01-0.08) x10^3/uL Sodium 132 L (135-145) mmol/L Potassium 4.7 (3.5-5.1) mmol/L Chloride 101 (98-107) mmol/L Carbon Dioxide 23 (22-30) mmol/L Anion Gap 12.8 (5-15) MEQ/L BUN (9-20) mg/dL Creatinine (0.66-1.25) mg/dL Estimated GFR ML/MIN Glucose (74-106) mg/dL POC Glucometer 52 L 63 L (74 to 106) mg/dL Calcium (8.4-10.2) mg/dL Total Bilirubin (0.2-1.3) mg/dL AST (17-59) U/L ALT (0-50) U/L Alkaline Phosphatase (38-126) U/L Creatine Kinase (55-170) U/L Serum Total Protein (6.3-8.2) g/dL Albumin (3.5-5.0) g/dL 02/11/24 02/11/24 02/11/24 Range/Units 20:29 20:52 21:59 WBC (4.23-9.07) x10^3/uL RBC (4.63-6.08) x10^6/uL Hgb (13.7-17.5) g/dL Hct (40.1-51.0) % MCV (79.0-92.2) fL MCH (25.7-32.2) pg MCHC (32.3-36.5) g/dL RDW (11.6-14.4) % Plt Count (163-337) x10^3/uL MPV (9.4-12.4) fL Gran % (34.0-67.9) % Immature Gran % (Auto) (0.001-0.429) % Nucleat RBC Rel Count (0.00-0.2) % Eos # (Auto) (0.04-0.54) x10^3/uL Immature Gran # (Auto) (0.001-0.031) x10^3u/L Absolute Lymphs (auto) (1.32-3.57) x10^3/uL Absolute Monos (auto) (0.30-0.82) x10^3/uL Absolute Nucleated RBC (0.00-0.012) x10^3u/L Lymphocytes % (21.8-53.1) % Monocytes % (5.3-12.2) % Eosinophils % (0.8-7.0) % Basophils % (0.2-1.2) % Absolute Granulocytes (1.78-5.38) x10^3/uL Basophils # (0.01-0.08) x10^3/uL Sodium (135-145) mmol/L Potassium (3.5-5.1) mmol/L Chloride (98-107) mmol/L Carbon Dioxide (22-30) mmol/L Anion Gap (5-15) MEQ/L BUN (9-20) mg/dL Creatinine (0.66-1.25) mg/dL Estimated GFR ML/MIN Glucose (74-106) mg/dL POC Glucometer 40 L* 99 63 L (74 to 106) mg/dL Calcium (8.4-10.2) mg/dL Total Bilirubin (0.2-1.3) mg/dL AST (17-59) U/L ALT (0-50) U/L Alkaline Phosphatase (38-126) U/L Creatine Kinase (55-170) U/L Serum Total Protein (6.3-8.2) g/dL Albumin (3.5-5.0) g/dL 02/11/24 02/11/24 02/12/24 Range/Units 22:39 23:56 00:24 WBC (4.23-9.07) x10^3/uL RBC (4.63-6.08) x10^6/uL Hgb (13.7-17.5) g/dL Hct (40.1-51.0) % MCV (79.0-92.2) fL MCH (25.7-32.2) pg MCHC (32.3-36.5) g/dL RDW (11.6-14.4) % Plt Count (163-337) x10^3/uL MPV (9.4-12.4) fL Gran % (34.0-67.9) % Immature Gran % (Auto) (0.001-0.429) % Nucleat RBC Rel Count (0.00-0.2) % Eos # (Auto) (0.04-0.54) x10^3/uL Immature Gran # (Auto) (0.001-0.031) x10^3u/L Absolute Lymphs (auto) (1.32-3.57) x10^3/uL Absolute Monos (auto) (0.30-0.82) x10^3/uL Absolute Nucleated RBC (0.00-0.012) x10^3u/L Lymphocytes % (21.8-53.1) % Monocytes % (5.3-12.2) % Eosinophils % (0.8-7.0) % Basophils % (0.2-1.2) % Absolute Granulocytes (1.78-5.38) x10^3/uL Basophils # (0.01-0.08) x10^3/uL Sodium (135-145) mmol/L Potassium (3.5-5.1) mmol/L Chloride (98-107) mmol/L Carbon Dioxide (22-30) mmol/L Anion Gap (5-15) MEQ/L BUN (9-20) mg/dL Creatinine (0.66-1.25) mg/dL Estimated GFR ML/MIN Glucose (74-106) mg/dL POC Glucometer 81 43 L* 81 (74 to 106) mg/dL Calcium (8.4-10.2) mg/dL Total Bilirubin (0.2-1.3) mg/dL AST (17-59) U/L ALT (0-50) U/L Alkaline Phosphatase (38-126) U/L Creatine Kinase (55-170) U/L Serum Total Protein (6.3-8.2) g/dL Albumin (3.5-5.0) g/dL 02/12/24 02/12/24 02/12/24 Range/Units 01:27 01:49 03:16 WBC (4.23-9.07) x10^3/uL RBC (4.63-6.08) x10^6/uL Hgb (13.7-17.5) g/dL Hct (40.1-51.0) % MCV (79.0-92.2) fL MCH (25.7-32.2) pg MCHC (32.3-36.5) g/dL RDW (11.6-14.4) % Plt Count (163-337) x10^3/uL MPV (9.4-12.4) fL Gran % (34.0-67.9) % Immature Gran % (Auto) (0.001-0.429) % Nucleat RBC Rel Count (0.00-0.2) % Eos # (Auto) (0.04-0.54) x10^3/uL Immature Gran # (Auto) (0.001-0.031) x10^3u/L Absolute Lymphs (auto) (1.32-3.57) x10^3/uL Absolute Monos (auto) (0.30-0.82) x10^3/uL Absolute Nucleated RBC (0.00-0.012) x10^3u/L Lymphocytes % (21.8-53.1) % Monocytes % (5.3-12.2) % Eosinophils % (0.8-7.0) % Basophils % (0.2-1.2) % Absolute Granulocytes (1.78-5.38) x10^3/uL Basophils # (0.01-0.08) x10^3/uL Sodium (135-145) mmol/L Potassium (3.5-5.1) mmol/L Chloride (98-107) mmol/L Carbon Dioxide (22-30) mmol/L Anion Gap (5-15) MEQ/L BUN (9-20) mg/dL Creatinine (0.66-1.25) mg/dL Estimated GFR ML/MIN Glucose (74-106) mg/dL POC Glucometer 52 L 95 78 (74 to 106) mg/dL Calcium (8.4-10.2) mg/dL Total Bilirubin (0.2-1.3) mg/dL AST (17-59) U/L ALT (0-50) U/L Alkaline Phosphatase (38-126) U/L Creatine Kinase (55-170) U/L Serum Total Protein (6.3-8.2) g/dL Albumin (3.5-5.0) g/dL 02/12/24 02/12/24 02/12/24 Range/Units 04:17 04:17 04:17 WBC 5.5 (4.23-9.07) x10^3/uL RBC 3.37 L (4.63-6.08) x10^6/uL Hgb 9.3 L (13.7-17.5) g/dL Hct 28.9 L (40.1-51.0) % MCV 85.8 (79.0-92.2) fL MCH 27.6 (25.7-32.2) pg MCHC 32.2 L (32.3-36.5) g/dL RDW 13.5 (11.6-14.4) % Plt Count 238 (163-337) x10^3/uL MPV 9.8 (9.4-12.4) fL Gran % 78.8 H (34.0-67.9) % Immature Gran % (Auto) 0.2 (0.001-0.429) % Nucleat RBC Rel Count 0.0 (0.00-0.2) % Eos # (Auto) 0.01 L (0.04-0.54) x10^3/uL Immature Gran # (Auto) 0.01 (0.001-0.031) x10^3u/L Absolute Lymphs (auto) 0.81 L (1.32-3.57) x10^3/uL Absolute Monos (auto) 0.31 (0.30-0.82) x10^3/uL Absolute Nucleated RBC 0.00 (0.00-0.012) x10^3u/L Lymphocytes % 14.7 L (21.8-53.1) % Monocytes % 5.6 (5.3-12.2) % Eosinophils % 0.2 L (0.8-7.0) % Basophils % 0.5 (0.2-1.2) % Absolute Granulocytes 4.34 (1.78-5.38) x10^3/uL Basophils # 0.03 (0.01-0.08) x10^3/uL Sodium 132 L (135-145) mmol/L Potassium 5.3 H (3.5-5.1) mmol/L Chloride 103 (98-107) mmol/L Carbon Dioxide 22 (22-30) mmol/L Anion Gap 12.6 (5-15) MEQ/L BUN 41 H (9-20) mg/dL Creatinine 2.41 H (0.66-1.25) mg/dL Estimated GFR 29.1 ML/MIN Glucose 84 (74-106) mg/dL POC Glucometer (74 to 106) mg/dL Calcium 8.2 L (8.4-10.2) mg/dL Total Bilirubin 0.40 (0.2-1.3) mg/dL AST 60 H (17-59) U/L ALT 45 (0-50) U/L Alkaline Phosphatase 200 H (38-126) U/L Creatine Kinase 1002 H (55-170) U/L Serum Total Protein 6.5 (6.3-8.2) g/dL Albumin 3.3 L (3.5-5.0) g/dL 02/12/24 02/12/24 02/12/24 Range/Units 06:12 07:12 09:20 WBC (4.23-9.07) x10^3/uL RBC (4.63-6.08) x10^6/uL Hgb (13.7-17.5) g/dL Hct (40.1-51.0) % MCV (79.0-92.2) fL MCH (25.7-32.2) pg MCHC (32.3-36.5) g/dL RDW (11.6-14.4) % Plt Count (163-337) x10^3/uL MPV (9.4-12.4) fL Gran % (34.0-67.9) % Immature Gran % (Auto) (0.001-0.429) % Nucleat RBC Rel Count (0.00-0.2) % Eos # (Auto) (0.04-0.54) x10^3/uL Immature Gran # (Auto) (0.001-0.031) x10^3u/L Absolute Lymphs (auto) (1.32-3.57) x10^3/uL Absolute Monos (auto) (0.30-0.82) x10^3/uL Absolute Nucleated RBC (0.00-0.012) x10^3u/L Lymphocytes % (21.8-53.1) % Monocytes % (5.3-12.2) % Eosinophils % (0.8-7.0) % Basophils % (0.2-1.2) % Absolute Granulocytes (1.78-5.38) x10^3/uL Basophils # (0.01-0.08) x10^3/uL Sodium (135-145) mmol/L Potassium (3.5-5.1) mmol/L Chloride (98-107) mmol/L Carbon Dioxide (22-30) mmol/L Anion Gap (5-15) MEQ/L BUN (9-20) mg/dL Creatinine (0.66-1.25) mg/dL Estimated GFR ML/MIN Glucose (74-106) mg/dL POC Glucometer 73 L 86 106 (74 to 106) mg/dL Calcium (8.4-10.2) mg/dL Total Bilirubin (0.2-1.3) mg/dL AST (17-59) U/L ALT (0-50) U/L Alkaline Phosphatase (38-126) U/L Creatine Kinase (55-170) U/L Serum Total Protein (6.3-8.2) g/dL Albumin (3.5-5.0) g/dL 02/12/24 Range/Units 11:08 WBC (4.23-9.07) x10^3/uL RBC (4.63-6.08) x10^6/uL Hgb (13.7-17.5) g/dL Hct (40.1-51.0) % MCV (79.0-92.2) fL MCH (25.7-32.2) pg MCHC (32.3-36.5) g/dL RDW (11.6-14.4) % Plt Count (163-337) x10^3/uL MPV (9.4-12.4) fL Gran % (34.0-67.9) % Immature Gran % (Auto) (0.001-0.429) % Nucleat RBC Rel Count (0.00-0.2) % Eos # (Auto) (0.04-0.54) x10^3/uL Immature Gran # (Auto) (0.001-0.031) x10^3u/L Absolute Lymphs (auto) (1.32-3.57) x10^3/uL Absolute Monos (auto) (0.30-0.82) x10^3/uL Absolute Nucleated RBC (0.00-0.012) x10^3u/L Lymphocytes % (21.8-53.1) % Monocytes % (5.3-12.2) % Eosinophils % (0.8-7.0) % Basophils % (0.2-1.2) % Absolute Granulocytes (1.78-5.38) x10^3/uL Basophils # (0.01-0.08) x10^3/uL Sodium (135-145) mmol/L Potassium (3.5-5.1) mmol/L Chloride (98-107) mmol/L Carbon Dioxide (22-30) mmol/L Anion Gap (5-15) MEQ/L BUN (9-20) mg/dL Creatinine (0.66-1.25) mg/dL Estimated GFR ML/MIN Glucose (74-106) mg/dL POC Glucometer 118 H (74 to 106) mg/dL Calcium (8.4-10.2) mg/dL Total Bilirubin (0.2-1.3) mg/dL AST (17-59) U/L ALT (0-50) U/L Alkaline Phosphatase (38-126) U/L Creatine Kinase (55-170) U/L Serum Total Protein (6.3-8.2) g/dL Albumin (3.5-5.0) g/dL Micro Results-Entire Visit: Accuchecks Date 02/12/24 Date 02/11/24 Time 11:44 - Radiology Exams Ordered Rad Exams-Entire Visit: Radiology Procedures Category Date Time Status ARTERIAL BILAT LOWER EXTREMITY [US] Routine Exams 02/11/24 08:00 Completed - Procedures and Test Procedures and Tests throughout Hospitalization: Therapy Orders & Screens 02/08/24 03:13 Respiratory Therapy Assessment DAILY Comment: 02/08/24 08:53 Respiratory Therapy Consult ONCE Comment: Reason For Exam: 02/08/24 10:15 RT Screen per Nursing Assess ONCE Comment: Protocol Order Physician Instructions: Greater than 3 points order RT Admission Screen Reason For Exam: Triggered on Admission Diagnosis: RHABDOMYOLOSIS Diagnosis: RHABDOMYOLOSIS Pneumonia: No Home O2: No Asthma: No CHF: Yes Home CPAP/BIPAP: No Home Nebs/MDI: Yes Total Points: 8 02/08/24 13:18 EKG REPEAT IN AM Comment: Diagnosis: RHABDOMYOLOSIS Respiratory Therapy Consult ONCE Comment: Reason For Exam: Diagnosis: RHABDOMYOLOSIS Discharge Exam General Appearance: no apparent distress, alert Neurologic Exam: alert, oriented x 3, cooperative, normal mood/affect, nml cerebellar function, sensation nml, No motor deficits Eye Exam: PERRL, EOMI, eyes nml inspection Ears, Nose, Throat Exam: normal ENT inspection, pharynx normal, moist mucous membranes Neck Exam: normal inspection, non-tender, supple, full range of motion Respiratory Exam: normal breath sounds, lungs clear, No respiratory distress Cardiovascular Exam: regular rate/rhythm, normal heart sounds Gastrointestinal/Abdomen Exam: soft, No tenderness, No mass Male Genitalia Exam: deferred Rectal Exam: deferred Back Exam: normal inspection, normal range of motion, No CVA tenderness, No vertebral tenderness Extremity Exam: normal inspection, normal range of motion Skin Exam: normal color, warm, dry Final Diagnosis/Problem List - Final Discharge Diagnosis/Problem (1) Acute exacerbation of CHF (congestive heart failure) Current Visit: Yes Status: Acute Code(s): I50.9 - HEART FAILURE, UNSPECIFIED (2) Acute on chronic renal failure Current Visit: Yes Status: Acute Code(s): N17.9 - ACUTE KIDNEY FAILURE, UNSPECIFIED; N18.9 - CHRONIC KIDNEY DISEASE, UNSPECIFIED (3) Amputation of left index finger Current Visit: Yes Status: Acute Code(s): S68.111A - COMPLETE TRAUMATIC MCP AMPUTATION OF LEFT INDEX FINGER, INIT (4) Elevated troponin Current Visit: Yes Status: Acute Code(s): R79.89 - OTHER SPECIFIED ABNORMAL FINDINGS OF BLOOD CHEMISTRY (5) Hyperglycemia Current Visit: Yes Status: Acute Code(s): R73.9 - HYPERGLYCEMIA, UNSPECIFIED (6) Hypomagnesemia Current Visit: Yes Status: Resolved Code(s): E83.42 - HYPOMAGNESEMIA (7) Pseudohyponatremia Current Visit: Yes Status: Acute Code(s): R79.89 - OTHER SPECIFIED ABNORMAL FINDINGS OF BLOOD CHEMISTRY (8) Rhabdomyolysis Current Visit: Yes Status: Acute Code(s): M62.82 - RHABDOMYOLYSIS (9) Chronic a-fib Current Visit: No Status: Chronic Code(s): I48.20 - CHRONIC ATRIAL FIBRILLATION, UNSPECIFIED (10) Type II diabetes mellitus Current Visit: No Status: Chronic Assessment & Plan: (1) Acute exacerbation of CHF (congestive heart failure) Current Visit: Yes Status: Acute Qualifiers: Heart failure type: systolic Qualified Code(s): I50.23 - Acute on chronic systolic (congestive) heart failure Assessment & Plan: -Most recent echo on file 07/29/23 with EF at 33% IMPRESSION: 1) MODERATE DECREASE IN LEFT VENTRICULAR SYSTOLIC FUNCTION. 2) BORDERLINE CONCENTRIC LEFT VENTRICULAR HYPERTROPHY. 4) HYPOKINESIS OF THE INTERVENTRICULAR SEPTUM. 5) RIGHT VENTRICULAR PACING ELECTRODE. 6) MODERATE LEFT ATRIAL DILATATION. 7) MILD MITRAL REGURGITATION. 8) MILD TRICUSPID REGURGITATION. 9) NORMAL RIGHT VENTRICULAR SYSTOLIC PRESSURE -BNP at 9170 on admission -Supplemental oxygen with spo2 goal > 92% -elevated HOB -CXR negative -Strict I&O with daily weights -Optimize lytes K>4, MG > 2 -dc fluids -Lasix - monitor kidney function closely -albumin 25g x 1 dose -cards consult- reviewed note and agree with plan of care -neph consult - pending -BLE edema- TEDS, elevate legs -US abdomen- Four-quadrant abdominal sonogram performed to evaluate ascites. Tiny pockets of free fluid seen in all 4 quadrants. Largest in right upper quadrant measuring 1.0 x 8.2 cm between abdominal wall and liver, not safe for paracentesis - venous duplex negative for DVT - arterial doppler BLE- 02/10 - echo EF 30% - albumin - CARO hose, elevate legs to decrease edema Code(s): I50.9 - HEART FAILURE, UNSPECIFIED (2) Acute on chronic renal failure Current Visit: Yes Status: Acute Assessment & Plan: -Baseline creat around 0.95 -Avoid KERMIT/ARB/NSAIDS - hold Jardiance -PT in CHF exacerbation as well, will need to monitor closely with diuresis -worsening creat 2.05- challenging with diuresis for his CHF, will consult nephrology/cardiology -Received albumin/lasix -mild acidosis oral bicarb with co2 level at 19- bicarb increased to TID dosing 02/10 - nephrology recommended lasix gtt to be started- pt to be tx to ICU per policy of needing Lasix gtt - Creat 2.15 - worse 02/11 - Lasix gtt stopped last night- restarted this AM - In ICU - Creat 2.41- worse - Tx to higher level of care Code(s): N17.9 - ACUTE KIDNEY FAILURE, UNSPECIFIED; N18.9 - CHRONIC KIDNEY DISEASE, UNSPECIFIED (3) Amputation of left index finger Current Visit: Yes Status: Acute 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 as OP now on Bactrim, will continue - CK level elevation most likely reflective of this 02/11 - Pt took cast off of left hand last night Code(s): S68.111A - COMPLETE TRAUMATIC MCP AMPUTATION OF LEFT INDEX FINGER, INIT (4) Elevated troponin Current Visit: Yes Status: Acute Assessment & Plan: -0.0109<0.119<0.139 - downtrending -EKG NS -possibly due to renal function -denies chest pain -CXR with no acute process -most recent echo 07/29/23 EF at 33% -Do not suspect ACS Code(s): R79.89 - OTHER SPECIFIED ABNORMAL FINDINGS OF BLOOD CHEMISTRY (5) Hyperglycemia Current Visit: Yes Status: Acute Assessment & Plan: -continue lispro/glargine/SSI Code(s): R73.9 - HYPERGLYCEMIA, UNSPECIFIED (6) Hypomagnesemia Current Visit: Yes Status: Resolved Assessment & Plan: - resolved Code(s): E83.42 - HYPOMAGNESEMIA (7) Pseudohyponatremia Current Visit: Yes Status: Acute Assessment & Plan: - fluid restriction 1.5L - Na+ 128 02/10 - Na+ 130- improved- trend 02/11 - N+ 132- mild Code(s): R79.89 - OTHER SPECIFIED ABNORMAL FINDINGS OF BLOOD CHEMISTRY (8) Rhabdomyolysis Current Visit: Yes Status: Acute Assessment & Plan: -CK down-trending - trend 02/11 - Trended up today 1002 - 2:2 moving all around in bed repeatedly last night until Haldol gave Code(s): M62.82 - RHABDOMYOLYSIS (9) Chronic a-fib Current Visit: No Status: Chronic Assessment & Plan: -continue home meds coreg/eliquis - Tele Code(s): I48.20 - CHRONIC ATRIAL FIBRILLATION, UNSPECIFIED (10) Type II diabetes mellitus Current Visit: No Status: Chronic Qualifiers: Diabetes mellitus complication status: with kidney complications Diabetes mellitus complication detail: with chronic kidney disease Assessment & Plan: -last A1c 10/17/23 was >14 - improved now at 10.26 -SSI -high dose/lispro/glargine -Hyperglycemic on arrival - pt is uncontrolled -reports recent issues with hypoglycemia so he did not take insulin- improved with ER giving 8 units - will continue to monitor -ADA diet -Advised glycemic control (11) Hypoglycemia Current Visit: Yes Status: Acute Assessment & Plan: - acute last night- dropped into 40's - D50 gave last night - started on D5 IVF - In ICU - Stopped IVF this Am - Pt awake and eating today - Q2 glucose checks Code(s): E16.2 - HYPOGLYCEMIA, UNSPECIFIED (12) Hyperkalemia Current Visit: Yes Status: Acute Assessment & Plan: - K+ 5.3- Veltassa gave - Recheck Code(s): E87.5 - HYPERKALEMIA (13) Muscle spasm Current Visit: Yes Status: Acute Assessment & Plan: -started 02/10- cyclobenzaprine gave- was not helpful - electrolyte panel- non- concerning on 02/10 - Likely 2:2 MARILU - resolved 02/11 Code(s): M62.838 - OTHER MUSCLE SPASM (14) Urinary retention Current Visit: Yes Status: Acute Assessment & Plan: - moyer placed 02/10 - d/c moyer as pt is awake and alert - Consider bladder scan if needed Code(s): R33.9 - RETENTION OF URINE, UNSPECIFIED - Discharge Discharge Date: 02/12/24 Disposition: Home, Self-Care Condition: Stable Prescriptions: New Smz/Tmp Ds Tablet [Bactrim Ds Tablet] 1 tab PO BID tablet Furosemide 100 mg/10 ml [Furosemide 100mg/10 ml Vial] 100 mg IV .Q10H Haloperidol Lactate 5 mg [Haldol 5 MG] 2 mg IV Q6HPRN PRN PRN Reason: Anxiety/Agitation Sodium Bicarbonate 650 mg PO TID tablet Continue Duloxetine HCl [Cymbalta] 60 mg PO BID Omeprazole 40 mg PO DAILY PRN PRN Reason: Indigestion Atorvastatin Calcium [Lipitor 40Mg] 40 mg PO HS Trazodone HCl 50 mg [Desyrel 50 mg] 50 mg PO HS PRN PRN Reason: Insomnia Ropinirole 2Mg [Requip 2Mg Tab] 2 mg PO HS Insulin Aspart [NovoLOG Insulin] 3 unit SQ AC Insulin Glargine [Lantus Insulin] 20 unit SQ BID Spironolactone 25 mg [Aldactone 25 MG] 25 mg PO DAILY 30 Days #30 tablet Apixaban [Eliquis 2.5 mg Tablet] 5 mg PO BID 30 Days #60 tablet Furosemide 40 mg [Lasix 40 MG] 40 mg PO DAILY 30 Days #30 tablet Carvedilol 3.125 mg [Coreg 3.125 MG] 12.5 mg PO BID Potassium Chloride 20 meq PO DAILY Empagliflozin [Jardiance] 25 mg PO DAILY lisinopriL [Zestril] 2.5 mg PO DAILY Torsemide 20 mg [Demadex 20 mg] 50 mg PO DAILY Gabapentin [Neurontin ] 100 mg PO TID Follow up with: ROGELIO CAVAZOS DO [Primary Care Provider] -
[2024-02-12 13:17] LABS: ANION GAP 13.1 MEQ/L (5-15); Potassium 4.9 mmol/L (3.5-5.1)
[2024-02-12 16:48] VITALS: TEMP 96.7
[2024-02-12 18:07] VITALS: BP 148/99; PULSE 82; RESP 16
[2024-02-13 14:45] VITALS: O2SAT 99
== END 2024-02-12 18:25 | disposition short-term general hospital (02) ==
LOC: ED 02:37 → MED SURG 08:44 → ICU 02-11 14:10
PROVIDERS: ADMIT Internal Medicine; ATTEND Internal Medicine
DX: I13.0 Hypertensive heart and chronic kidney disease with heart failure and stage 1 through stage 4 chronic kidney disease, or unspecified chronic kidney disease (principal); E11.22 Type 2 diabetes mellitus with diabetic chronic kidney disease; N18.9 Chronic kidney disease, unspecified; N17.9 Acute kidney failure, unspecified; S68.111A Complete traumatic metacarpophalangeal amputation of left index finger, initial encounter; E11.65 Type 2 diabetes mellitus with hyperglycemia; Z59.12 Inadequate housing utilities; R79.89 Other specified abnormal findings of blood chemistry; E83.42 Hypomagnesemia; M62.82 Rhabdomyolysis; I48.20 Chronic atrial fibrillation, unspecified; E87.5 Hyperkalemia; R09.89 Other specified symptoms and signs involving the circulatory and respiratory systems; M62.838 Other muscle spasm; R33.9 Retention of urine, unspecified; R60.0 Localized edema; Z79.01 Long term (current) use of anticoagulants; Z79.899 Other long term (current) drug therapy
CPT/HCPCS: 36000; 36415; 71045; 76705; 80051; 80053; 81001; 82550; 82947; 83036; 83605; 83735; 83880; 84443; 84484; 85025; 87086; 87493; 93005; 93041; 93268; 93306; 93925; 93970; 94640; 94760; 96374; 96375; 99285; G0378; Q3014; J1170; J1630; J1815; J1817; J1940; J2060; J2270; J2360; J2405; J3475; P9047; A9270-GY

== ENCOUNTER 2024-02-24 17:58 | Observation (INO) | payer MEDICARE ==
--- NOTE | 2024-02-24 18:02 | ERPHSYRPT ---
<BLUNACHO - Last Filed: 02/24/24 23:10> - History of Present Illness Source: patient Exam Limitations: no limitations Timing/Duration: yesterday Activities at Onset: rest Severity of Dyspnea-Max: severe Severity of Dyspnea-Current: severe Possible Cause: frequent episodes Modifying Factors: Worsens With: activity, exertion, lying down Associated Symptoms: constant, edema, weakness, ankle swelling, leg swelling, No chest pain/discomfort, No fever, No lightheadedness, No wheezing, No hemoptysis, No dizziness, No productive cough Hx Tetanus, Diphtheria Vaccination/Date Given: Yes Hx Influenza Vaccination/Date Given: Yes Hx Pneumococcal Vaccination/Date Given: Yes <ANDRADE RHOADES - Last Filed: 02/24/24 23:55> - History of Present Illness Time Seen by Provider: 02/24/24 18:02 Physician History: The patient presents with acute onset shortness of breath that started the previous night. He reports orthopnea, unable to lay down even with multiple pillows due to severe breathlessness. He has a history of congestive heart failure (CHF) and has been recently hospitalized for cardiac issues. He is on diuretics, but he reports that these are not effectively managing his fluid overload. He also mentions that his kidneys are 'messed up' and have been causing him pain. In addition to his cardiac issues, he has been having problems with his fingers. His thumb is infected and his left hand has swelling and issues following a recent operation. He has been managing the thumb infection himself by keeping it clean. He also mentions that his blood sugar has been high, with a recent HbA1c of 10.6, down from 15.7. (ANDRADE RHOADES) Allergies/Adverse Reactions: diphenhydramine [From Benadryl] Allergy (Verified 02/24/24 23:49) Difficulty Breathing Iodinated Contrast Media Allergy (Verified 02/24/24 23:49) Difficulty Breathing Home Medications: Atorvastatin Calcium [Lipitor 40Mg] 40 mg PO HS 07/28/23 [History] Duloxetine HCl [Cymbalta] 60 mg PO BID 07/28/23 [History] Insulin Aspart [NovoLOG Insulin] 3 unit SQ AC 07/28/23 [History] Insulin Glargine [Lantus Insulin] 20 unit SQ BID 07/28/23 [History] Omeprazole 40 mg PO DAILY PRN 07/28/23 [History] Ropinirole 2Mg [Requip 2Mg Tab] 2 mg PO HS 07/28/23 [History] Trazodone HCl 50 mg [Desyrel 50 mg] 50 mg PO HS PRN 07/28/23 [History] Potassium Chloride 20 meq PO DAILY 10/16/23 [History] Empagliflozin [Jardiance] 25 mg PO DAILY 01/29/24 [History] Gabapentin [Neurontin ] 100 mg PO TID 02/08/24 [History] Carvedilol 12.5 mg [Coreg 12.5 mg] 12.5 mg PO BID 02/24/24 [History] Lisinopril 10 mg [Zestril 10 MG] 10 mg PO DAILY 02/24/24 [History] Torsemide 50 mg PO DAILY 02/24/24 [History] Travel Risk - Emerging Infectious Disease Are you exhibiting symptoms associated with any current EIDs: Yes Symptoms: Shortness of Breath <ANDRADE RHOADES - Last Filed: 02/24/24 23:55> - Review of Systems All Other Systems: Reviewed and Negative <ANDRADE RHOADES - Last Filed: 02/24/24 23:55> - Past Medical History Pertinent Past Medical History: Yes Neurological History: Peripheral Neuropathy ENT History: Cataracts Cardiac History: Arrhythmia, Congestive Heart Failure, High Cholesterol, Hypertension Respiratory History: Bronchitis, CHF, COPD, Sleep Apnea Endocrine Medical History: Diabetes Type II Musculoskeletal History: Arthritis, Osteoarthritis, Other GI Medical History: GERD, Gallbladder Disease History: Renal Disease Psycho-Social History: Anxiety, Depression Male Reproductive Disorders: No Pertinent History Other Medical History: a.fib, restless leg, bulging discs cervical spine, carpal tunnel - Past Surgical History Past Surgical History: Yes Neuro Surgical History: No Pertinent History Cardiac: Pacemaker Respiratory: No Pertinent History Gastrointestinal: Cholecystectomy Genitourinary: No Pertinent History Musculoskeletal: Amputation Male Surgical History: No Pertinent History Other Surgical History: cardiac ablation, 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 - Social History Smoking Status: Never smoker Exposure to second hand smoke: No Drug Use: none Patient Lives Alone: No - Social Determinants of Health Will the patient participate in the screening: Declined to provide <ANDRADE RHOADES - Last Filed: 02/24/24 23:55> - Physical Exam General Appearance: mild distress Eye Exam: eyes nml inspection Ears, Nose, Throat Exam: hearing grossly normal Neck Exam: normal inspection, supple, full range of motion Respiratory Exam: airway intact, diminished breath sounds, crackles/rales, No accessory muscle use Cardiovascular/Chest Exam: regular rate/rhythm, No extra beats, No friction rub Abdominal/Gastrointestinal Exam: soft, distention, No tenderness Extremity Exam: pedal edema, swelling Neurologic Exam: alert, oriented x 3, cooperative Skin Exam: normal color, warm, dry SpO2 Interpretation: normal O2 Delivery: Room Air <ANDRADE RHOADES - Last Filed: 02/24/24 23:55> - Nursing Vital Signs Nursing Vital Signs: Initial Vital Signs Temperature 97.3 F 02/24/24 17:59 Pulse Rate 84 02/24/24 17:59 Respiratory Rate 20 02/24/24 17:59 Blood Pressure 161/110 02/24/24 17:59 O2 Sat by Pulse Oximetry 98 02/24/24 17:59 Pain Scale Pain Intensity 0 - Course EKG Interpreted by Me: RATE <NACHO HURT - Last Filed: 02/24/24 23:10> - Course Nursing assessment & vital signs reviewed: Yes EKG Interpreted by Me: RATE (87, juntional ), prolonged QT interval (QTc 498), Other (IVCD ST elevation of 1mm in V2, V3, V4) <ANDRADE RHOADES - Last Filed: 02/24/24 23:55> Ordered Tests: Active Orders 24 hr Category Date Time Status Bedrest ROUTINE Activity 02/24/24 23:17 Active Up With Assistance ROUTINE Activity 02/24/24 23:17 Active Call Admit Doctor for Orders ON ADMISSION Care 02/24/24 23:17 Active Physical Meteorologist ROUTINE Care 02/24/24 23:17 Active Code Status Order ROUTINE Care 02/24/24 23:17 Active Fall Protocol Q1H Care 02/24/24 23:17 Active POCT Glucose Check ACHS Care 02/24/24 23:[address] in Observation ROUTINE Care 02/24/24 23:17 Active Telemetry q6h Care 02/24/24 23:17 Active Consistent Carbohydrate Diet 1800 Calorie Diet 02/25/24 Breakfast Active CHEST WITHOUT CONTRAST [CT] Stat Exams 02/24/24 21:01 Taken CBC W DIFF Stat Lab 02/24/24 18:10 Completed CMP Stat Lab 02/24/24 18:10 Completed D-DIMER QUANTITATIVE Stat Lab 02/24/24 18:10 Completed Lactic Acid Stat Lab 02/24/24 18:33 Completed MAGNESIUM Stat Lab 02/24/24 18:10 Completed NT PRO BNPII Stat Lab 02/24/24 18:10 Completed POCT GLUCOSE Stat Lab 02/24/24 22:52 Completed TROPONIN Q4H Lab 02/24/24 18:10 Completed TROPONIN Q4H Lab 02/24/24 21:55 Completed TROPONIN Q4H Lab 02/25/24 02:30 Ordered VBG [VENOUS BLOOD GAS] Stat Lab 02/24/24 18:33 Completed Pulse Oximetry CONTINUOUS RT 02/24/24 23:17 Active Respiratory Therapy Consult ONCE RT 02/24/24 23:17 Active Transfer Order Routine Transfer 02/24/24 Completed Medication Summary Discontinued Medications Generic Name Dose Route Start Last Admin Trade Name Kimaniq PRN Reason Stop Dose Admin Furosemide 40 mg 02/24/24 18:25 02/24/24 18:31 Furosemide 40 Mg/4 Ml Vial IV 02/24/24 18:26 40 mg STAT ONE Administration Furosemide Confirm 02/24/24 18:31 Furosemide 40 Mg/4 Ml Vial Administered 02/24/24 18:32 Dose 40 mg .ROUTE .STK-MED ONE Furosemide 20 mg 02/24/24 23:11 02/24/24 23:16 Furosemide 40 Mg/4 Ml Vial IV 02/24/24 23:12 20 mg STAT ONE Administration Furosemide Confirm 02/24/24 23:15 Furosemide 40 Mg/4 Ml Vial Administered 02/24/24 23:16 Dose 40 mg .ROUTE .STK-MED ONE Insulin Human Regular 10 unit 02/24/24 19:51 02/24/24 19:55 Insulin Regular, Human 1 Unit IV 02/24/24 19:52 10 unit STAT ONE Administration Insulin Human Regular Confirm 02/24/24 19:54 Insulin Regular, Human 1 Unit Administered 02/24/24 19:55 Dose 10 unit .ROUTE .STK-MED ONE Lab/Rad Data: Laboratory Result Diagrams 02/24/24 18:10 02/24/24 18:10 Laboratory Results 02/24/24 02/24/24 02/24/24 Range/Units 22:52 21:55 18:33 WBC (4.23-9.07) x10^3/uL RBC (4.63-6.08) x10^6/uL Hgb (13.7-17.5) g/dL Hct (40.1-51.0) % MCV (79.0-92.2) fL MCH (25.7-32.2) pg MCHC (32.3-36.5) g/dL RDW (11.6-14.4) % Plt Count (163-337) x10^3/uL MPV (9.4-12.4) fL Gran % (34.0-67.9) % Immature Gran % (Auto) (0.001-0.429) % Nucleat RBC Rel Count (0.00-0.2) % Eos # (Auto) (0.04-0.54) x10^3/uL Immature Gran # (Auto) (0.001-0.031) x10^3u/L Absolute Lymphs (auto) (1.32-3.57) x10^3/uL Absolute Monos (auto) (0.30-0.82) x10^3/uL Absolute Nucleated RBC (0.00-0.012) x10^3u/L Lymphocytes % (21.8-53.1) % Monocytes % (5.3-12.2) % Eosinophils % (0.8-7.0) % Basophils % (0.2-1.2) % Absolute Granulocytes (1.78-5.38) x10^3/uL Basophils # (0.01-0.08) x10^3/uL D-Dimer (0.0-0.50) mg/L pO2/FiO2 Ratio 21.0 % VBG pH 7.34 (7.32-7.42) VBG pCO2 at Pat Temp 48 (42-55) mm/Hg VBG pO2 at Pat Temp 32 (25-40) mm/Hg VBG HCO3 25.9 (22-28) meq/L VBG O2 Sat (Miriam) 57.7 L (95-100) VBG Base Excess -0.2 (-2.0-2.0) VBG Hemoglobin 10.4 VBG Carboxyhemoglobin 3.6 (0.0-6.9) % T HGB POC Potassium 4.5 (3.5-5.1) Sodium (135-145) mmol/L Potassium (3.5-5.1) mmol/L Chloride (98-107) mmol/L Carbon Dioxide (22-30) mmol/L Anion Gap (5-15) MEQ/L BUN (9-20) mg/dL Creatinine (0.66-1.25) mg/dL Estimated GFR ML/MIN Glucose (74-106) mg/dL POC Glucometer 167 H (74 to 106) mg/dL Lactic Acid 1.2 (0.4-2.0) Calcium (8.4-10.2) mg/dL Magnesium (1.6-2.3) mg/dL Total Bilirubin (0.2-1.3) mg/dL AST (17-59) U/L ALT (0-50) U/L Alkaline Phosphatase (38-126) U/L Troponin I 0.093 H* (0.000-0.033) ng/mL NT-Pro-B Natriuret Pep (<300) pg/mL Serum Total Protein (6.3-8.2) g/dL Albumin (3.5-5.0) g/dL 02/24/24 02/24/24 02/24/24 Range/Units 18:10 18:10 18:10 WBC (4.23-9.07) x10^3/uL RBC (4.63-6.08) x10^6/uL Hgb (13.7-17.5) g/dL Hct (40.1-51.0) % MCV (79.0-92.2) fL MCH (25.7-32.2) pg MCHC (32.3-36.5) g/dL RDW (11.6-14.4) % Plt Count (163-337) x10^3/uL MPV (9.4-12.4) fL Gran % (34.0-67.9) % Immature Gran % (Auto) (0.001-0.429) % Nucleat RBC Rel Count (0.00-0.2) % Eos # (Auto) (0.04-0.54) x10^3/uL Immature Gran # (Auto) (0.001-0.031) x10^3u/L Absolute Lymphs (auto) (1.32-3.57) x10^3/uL Absolute Monos (auto) (0.30-0.82) x10^3/uL Absolute Nucleated RBC (0.00-0.012) x10^3u/L Lymphocytes % (21.8-53.1) % Monocytes % (5.3-12.2) % Eosinophils % (0.8-7.0) % Basophils % (0.2-1.2) % Absolute Granulocytes (1.78-5.38) x10^3/uL Basophils # (0.01-0.08) x10^3/uL D-Dimer 1.34 H* (0.0-0.50) mg/L pO2/FiO2 Ratio % VBG pH (7.32-7.42) VBG pCO2 at Pat Temp (42-55) mm/Hg VBG pO2 at Pat Temp (25-40) mm/Hg VBG HCO3 (22-28) meq/L VBG O2 Sat (Miriam) (95-100) VBG Base Excess (-2.0-2.0) VBG Hemoglobin VBG Carboxyhemoglobin (0.0-6.9) % T HGB POC Potassium (3.5-5.1) Sodium 131 L (135-145) mmol/L Potassium 4.8 (3.5-5.1) mmol/L Chloride 100 (98-107) mmol/L Carbon Dioxide 22 (22-30) mmol/L Anion Gap 13.4 (5-15) MEQ/L BUN 19 (9-20) mg/dL Creatinine 1.14 (0.66-1.25) mg/dL Estimated GFR 71.4 ML/MIN Glucose 532 H* (74-106) mg/dL POC Glucometer (74 to 106) mg/dL Lactic Acid (0.4-2.0) Calcium 9.4 (8.4-10.2) mg/dL Magnesium 1.7 (1.6-2.3) mg/dL Total Bilirubin 1.20 (0.2-1.3) mg/dL AST 32 (17-59) U/L ALT 30 (0-50) U/L Alkaline Phosphatase 222 H (38-126) U/L Troponin I 0.097 H* (0.000-0.033) ng/mL NT-Pro-B Natriuret Pep 44181 (<300) pg/mL Serum Total Protein 7.4 (6.3-8.2) g/dL Albumin 3.6 (3.5-5.0) g/dL 02/24/24 Range/Units 18:10 WBC 7.8 (4.23-9.07) x10^3/uL RBC 3.73 L (4.63-6.08) x10^6/uL Hgb 10.4 L (13.7-17.5) g/dL Hct 33.1 L (40.1-51.0) % MCV 88.7 (79.0-92.2) fL MCH 27.9 (25.7-32.2) pg MCHC 31.4 L (32.3-36.5) g/dL RDW 14.4 (11.6-14.4) % Plt Count 275 (163-337) x10^3/uL MPV 10.5 (9.4-12.4) fL Gran % 87.3 H (34.0-67.9) % Immature Gran % (Auto) 0.3 (0.001-0.429) % Nucleat RBC Rel Count 0.0 (0.00-0.2) % Eos # (Auto) 0.06 (0.04-0.54) x10^3/uL Immature Gran # (Auto) 0.02 (0.001-0.031) x10^3u/L Absolute Lymphs (auto) 0.62 L (1.32-3.57) x10^3/uL Absolute Monos (auto) 0.23 L (0.30-0.82) x10^3/uL Absolute Nucleated RBC 0.00 (0.00-0.012) x10^3u/L Lymphocytes % 8.0 L (21.8-53.1) % Monocytes % 3.0 L (5.3-12.2) % Eosinophils % 0.8 (0.8-7.0) % Basophils % 0.6 (0.2-1.2) % Absolute Granulocytes 6.79 H (1.78-5.38) x10^3/uL Basophils # 0.05 (0.01-0.08) x10^3/uL D-Dimer (0.0-0.50) mg/L pO2/FiO2 Ratio % VBG pH (7.32-7.42) VBG pCO2 at Pat Temp (42-55) mm/Hg VBG pO2 at Pat Temp (25-40) mm/Hg VBG HCO3 (22-28) meq/L VBG O2 Sat (Miriam) (95-100) VBG Base Excess (-2.0-2.0) VBG Hemoglobin VBG Carboxyhemoglobin (0.0-6.9) % T HGB POC Potassium (3.5-5.1) Sodium (135-145) mmol/L Potassium (3.5-5.1) mmol/L Chloride (98-107) mmol/L Carbon Dioxide (22-30) mmol/L Anion Gap (5-15) MEQ/L BUN (9-20) mg/dL Creatinine (0.66-1.25) mg/dL Estimated GFR ML/MIN Glucose (74-106) mg/dL POC Glucometer (74 to 106) mg/dL Lactic Acid (0.4-2.0) Calcium (8.4-10.2) mg/dL Magnesium (1.6-2.3) mg/dL Total Bilirubin (0.2-1.3) mg/dL AST (17-59) U/L ALT (0-50) U/L Alkaline Phosphatase (38-126) U/L Troponin I (0.000-0.033) ng/mL NT-Pro-B Natriuret Pep (<300) pg/mL Serum Total Protein (6.3-8.2) g/dL Albumin (3.5-5.0) g/dL - Progress Progress: re-examined Air Movement: fair Antibiotics given: No Discussed with : Other (Dr. FERRERA hospitalist) Will see patient in: hospital (observation) Counseled pt/family regarding: lab results, diagnosis, rad results, smoking cessation <NACHO HURT - Last Filed: 02/24/24 23:10> - Progress Progress Note: 02/24/24 23:11 63-year-old is checked out to me at shift change from Dr. Rhoades with pending workup. Patient presented with 1 day history of increasing shortness of breath/orthopnea with no chest pain. EKG showed accelerated junctional rhythm with no ST elevations. He is given [address] Rhoades and I have given him another 20 mg. Patient has initial troponin of 0.097 with a BNP of 24 K. Patient troponin on review of record showed always elevation/chronic leak and today is actually the lowest troponin recorded here in the last few times. Patient denies any chest pain. Has normal white count, chemistries showed normal bicarb and normal pH with glucose of 532. He is not in DKA or HHS and is given a dose of 10 mg IV insulin with improvement in blood sugar to 167. Dr. Rhoades has obtained D-dimers but patient is allergic to iodine contrast, he does have history of A-fib with pacemaker placement and is anticoagulated on Eliquis and has not missed the dose. So we will continue with oral anticoagulation. I have obtained CT chest without contrast which per preliminary report showed finding consistent with congestive heart failure without consolidation and does have bilateral pleural effusion. I believe patient's symptoms are consistent with CHF exacerbation and also the elevated troponin are secondary to that. I have discussed with Dr. Ferrera hospitalist on-call, reviewed history, workup and patient is excepted for admission. I have shared the results of workup with patient, plan IV diuretics with observation admission which she understands and agrees. (NACHO HURT) Medical Desision Making - External Record(s) Reviewed Records reviewed as a part of evaluation & management: Inpatient, Discharge Summary - Discussion of managment Care discussed with:: hospitalist Reviewed:: Test results Agreed on:: Treatment plan, place in obs Will see patient: in hospital - Diagnostic Testing Diagnostic test were ordered, analyzed, and reviewed by me: Yes Radiological Interpretation: Reviewed by me, Teleradiologist Report - Risk of complications The pt has a mod risk of morbidity or mortality based on: Need for prescription drug management The pt has a high risk of morbidity or mortality based on: Decision regarding hospitilization or escalation of hosp level of care <NACHO HURT - Last Filed: 02/24/24 23:10> - Departure Departure Disposition: Observation Critical Care Time: No <NACHO HURT - Last Filed: 02/24/24 23:10> <ANDRADE RHOADES - Last Filed: 02/24/24 23:55> - Departure Clinical Impression: Acute exacerbation of CHF (congestive heart failure), SOB (shortness of breath), Anemia, Hyperglycemia Condition: Stable
[2024-02-24] MEDS ORDERED: Lasix 40 MG/4 ML ONE ×2 (18:31→23:15)
[2024-02-24] MEDS: Lasix 40 MG/4 ML IV ONE ×2 (18:31→23:16)
[2024-02-24 18:36] LABS: Absolute Neutrophil Ct (ANC) 6.79 x10^3/uL (1.78-5.38); BASOPHIL % 0.6 % (0.2-1.2); Basophil (Absolute #) 0.05 x10^3/uL (0.01-0.08); Eosinophil % 0.8 % (0.8-7.0); Eosinophil (Absolute #) 0.06 x10^3/uL (0.04-0.54); Hematocrit 33.1 % (40.1-51.0); Hemoglobin 10.4 g/dL (13.7-17.5); IMMATURE GRAN # 0.02 x10^3u/L (0.001-0.031); IMMATURE GRAN % 0.3 % (0.001-0.429); Lymphocyte (Absolute #) 0.62 x10^3/uL (1.32-3.57); Mean Cell Volume 88.7 fL (79.0-92.2); Mean Corpuscular Hemoglobin 27.9 pg (25.7-32.2); Mean Corpuscular Hgb Concent. 31.4 g/dL (32.3-36.5); Mean Platelet Volume 10.5 fL (9.4-12.4); Monocyte (Absolute #) 0.23 x10^3/uL (0.30-0.82); Neutrophil % 87.3 % (34.0-67.9); Platelet Count 275 x10^3/uL (163-337); Red Blood Count 3.73 x10^6/uL (4.63-6.08); Red Cell Distribution Width 14.4 % (11.6-14.4); White Blood Count 7.8 x10^3/uL (4.23-9.07)
[2024-02-24 18:42] LABS: Lactic Acid 1.2 (0.4-2.0); VBG BASE EXCESS -0.2 (-2.0-2.0); VBG CARBOXYHEMOGLOBIN 3.6 % T HGB (0.0-6.9); VBG HCO3- 25.9 meq/L (22-28); VBG HEMOGLOBIN 10.4; VBG O2 SATURATION 57.7 (95-100); VBG POTASSIUM 4.5 (3.5-5.1); VBG pH 7.34 (7.32-7.42)
[2024-02-24 19:21] LABS: ALBUMIN 3.6 g/dL (3.5-5.0); ANION GAP 13.4 MEQ/L (5-15); BILIRUBIN,TOTAL 1.2 mg/dL (0.2-1.3); Calcium 9.4 mg/dL (8.4-10.2); Creatinine 1 1.14 mg/dL (0.66-1.25); EST GLOMERULAR FILTRATION RATE 71.4 ML/MIN; MAGNESIUM 1.7 mg/dL (1.6-2.3); Potassium 4.8 mmol/L (3.5-5.1); Total Protein 7.4 g/dL (6.3-8.2)
[2024-02-24] MEDS ORDERED: HUMULIN R ONE (19:54)
[2024-02-24] MEDS: HUMULIN R IV ONE (19:55)
[2024-02-24 20:17] LABS: TROPONIN 0.097 ng/mL (0.000-0.033)
--- NOTE | 2024-02-25 00:15 | PCM.HP ---
History of Present Illness - Chief Complaint Chief Complaint: CHF exacerbation, shortness of breath Date: 02/25/24 History of Present Illness: 63 years old very pleasant male with past medical history significant for chronic atrial fibrillation on Eliquis, anxiety/depression, GERD, obstructive sleep apnea, chronic bronchitis/COPD, chronic St[place]le congestive heart failure, s/p pacemaker, hypertension, diabetes mellitus peripheral neuropathy, recently discharged almost 10 days ago after getting treated for congestive heart failure exacerbation.He got readmitted with shortness of breath that started all of a sudden since yesterday, he was not able to lie flat, did c/o Orthopnea/PND, increased leg swelling. He endorsed wet cough with clear phlegm. he seems non compliant with his meds and diet. no chest pain reported. In the ER the vital signs were stable. far as blood workup concerned white cell count 7.8 hemoglobin 10.4 platelet count 275. Sodium 131 potassium 4.8 chloride 100 bicarb 32 BUN 19 creatinine 1.14 glucose 532. Troponin 0.093. NT proBNP [id number] that was consistent with pulmonary edema D-dimer was running high around 1.34. He received total 60 mg IV Lasix in the ER and admitted for CHF exacerbation - Review of Systems All Other Systems: Reviewed and Negative (14 systems reviewed and marked ve except mentioned in [facility]) Medications & Allergies Home Medications: Home Medication List Atorvastatin Calcium [Lipitor 40Mg] 40 mg PO HS 07/28/23 [History Confirmed 02/24/24] Duloxetine HCl [Cymbalta] 60 mg PO BID 07/28/23 [History Confirmed 02/24/24] Insulin Aspart [NovoLOG Insulin] 3 unit SQ AC 07/28/23 [History Confirmed 02/24/24] Insulin Glargine [Lantus Insulin] 20 unit SQ BID 07/28/23 [History Confirmed 02/24/24] Omeprazole 40 mg PO DAILY PRN 07/28/23 [History Confirmed 02/24/24] Ropinirole 2Mg [Requip 2Mg Tab] 2 mg PO HS 07/28/23 [History Confirmed 02/24/24] Trazodone HCl 50 mg [Desyrel 50 mg] 50 mg PO HS PRN 07/28/23 [History Confirmed 02/24/24] Apixaban [Eliquis 2.5 mg Tablet] 5 mg PO BID 30 Days #60 tablet 07/30/23 [Rx Confirmed 02/24/24] Spironolactone 25 mg [Aldactone 25 MG] 25 mg PO DAILY 30 Days #30 tablet 07/30/23 [Rx Confirmed 02/24/24] Furosemide 40 mg [Lasix 40 MG] 40 mg PO DAILY 30 Days #30 tablet 07/31/23 [Rx Confirmed 02/24/24] Potassium Chloride 20 meq PO DAILY 10/16/23 [History Confirmed 02/24/24] Empagliflozin [Jardiance] 25 mg PO DAILY 01/29/24 [History Confirmed 02/24/24] Gabapentin [Neurontin ] 100 mg PO TID 02/08/24 [History Confirmed 02/24/24] Smz/Tmp Ds Tablet [Bactrim Ds Tablet] 1 tab PO BID tablet 02/12/24 [Rx Confirmed 02/24/24] Carvedilol 12.5 mg [Coreg 12.5 mg] 12.5 mg PO BID 02/24/24 [History Confirmed 02/24/24] Lisinopril 10 mg [Zestril 10 MG] 10 mg PO DAILY 02/24/24 [History Confirmed 02/24/24] Torsemide 50 mg PO DAILY 02/24/24 [History Confirmed 02/24/24] Allergies/Adverse Reactions: Allergies Allergy/AdvReac Type Severity Reaction Status Date / Time diphenhydramine Allergy Difficulty Verified 02/24/24 23:49 [From Benadryl] Breathing Iodinated Contrast Media Allergy Difficulty Verified 02/24/24 23:49 Breathing - Past Medical History Past Medical History: Yes Neurological History: Peripheral Neuropathy ENT History: Cataracts Cardiac History: Arrhythmia, Congestive Heart Failure, High Cholesterol, Hypertension Respiratory History: Bronchitis, CHF, COPD, Sleep Apnea Endocrine Medical History: Diabetes Type II Musculoskelatal History: Arthritis, Osteoarthritis, Other GI Medical History: GERD, Gallbladder Disease History: Renal Disease Pyscho-Social History: Anxiety, Depression Male Reproductive Disorders: No Pertinent History Comment: a.fib, restless leg, bulging discs cervical spine, carpal tunnel - Past Surgical History Past Surgical History: Yes Neuro Surgical History: No Pertinent History Cardiac History: Pacemaker Respiratory Surgery: No Pertinent History GI Surgical History: Cholecystectomy Genitourinary Surgical Hx: No Pertinent History Musculskeletal Surgical Hx: Amputation Male Surgical History: No Pertinent History Other Surgical History: cardiac ablation, 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 Significant Family History: no pertinent family hx (No family history pertaining to this admission reported) - Social History Smoking Status: Never smoker Exposure to second hand smoke: No Alcohol: None Drug Use: none - Social Determinants of Health Will the patient participate in the screening: Declined to provide Do you worry about a steady place to live?: No Do you have any problems with any of the following?: No known problems In the past 12 months,have you had to go without utilities?: No Have you or anyone in your house had to go without enough: No Transportation Issues: No Has anyone in your support network made you feel unsafe?: No Does the patient want assistance with any of the above?: No Comment: pt has no running water, would like assistance - Physical Exam Vital Signs: Vital Signs - 24 hr Temp Pulse Resp BP BP Pulse Ox 02/24/24 23:22 97.3 F 80 22 142/89 93 L 02/24/24 23:00 77 15 138/78 95 02/24/24 22:45 81 23 131/82 98 02/24/24 22:30 75 16 132/84 96 02/24/24 22:15 80 23 148/90 99 02/24/24 22:00 86 18 137/82 99 02/24/24 21:45 77 21 155/102 02/24/24 21:30 77 19 150/84 98 02/24/24 21:15 74 19 150/89 99 02/24/24 21:10 78 18 99 02/24/24 21:06 84 22 98 02/24/24 20:45 153/104 02/24/24 20:31 75 22 168/103 99 02/24/24 20:15 76 24 169/99 97 02/24/24 20:00 74 22 169/109 99 02/24/24 19:45 77 28 H 171/104 98 02/24/24 19:30 76 24 154/101 98 02/24/24 19:15 79 19 164/96 100 02/24/24 19:00 77 19 166/99 98 02/24/24 17:59 97.3 F 84 22 161/110 99 Additional Findings: HEENT Middle aged, average built in no distress NECK Supple,no thyromegaly, CVS S1+S2 + 0, no murmers RESP Bilateral equal air entry without Crepts/Wheezes heard GIT Soft non tender,non distended Skin, No rah, no Bruises LEGS 2 + Edema PSYCH Normal,mood, judgement and insight NEURO AOX3, no focal deficit 02/25/24 00:55 Results - Labs Lab/Micro Results: Lab Results-Last 24 Hours 02/24/24 02/24/24 02/24/24 Range/Units 18:10 18:10 18:10 WBC 7.8 (4.23-9.07) x10^3/uL RBC 3.73 L (4.63-6.08) x10^6/uL Hgb 10.4 L (13.7-17.5) g/dL Hct 33.1 L (40.1-51.0) % MCV 88.7 (79.0-92.2) fL MCH 27.9 (25.7-32.2) pg MCHC 31.4 L (32.3-36.5) g/dL RDW 14.4 (11.6-14.4) % Plt Count 275 (163-337) x10^3/uL MPV 10.5 (9.4-12.4) fL Gran % 87.3 H (34.0-67.9) % Immature Gran % (Auto) 0.3 (0.001-0.429) % Nucleat RBC Rel Count 0.0 (0.00-0.2) % Eos # (Auto) 0.06 (0.04-0.54) x10^3/uL Immature Gran # (Auto) 0.02 (0.001-0.031) x10^3u/L Absolute Lymphs (auto) 0.62 L (1.32-3.57) x10^3/uL Absolute Monos (auto) 0.23 L (0.30-0.82) x10^3/uL Absolute Nucleated RBC 0.00 (0.00-0.012) x10^3u/L Lymphocytes % 8.0 L (21.8-53.1) % Monocytes % 3.0 L (5.3-12.2) % Eosinophils % 0.8 (0.8-7.0) % Basophils % 0.6 (0.2-1.2) % Absolute Granulocytes 6.79 H (1.78-5.38) x10^3/uL Basophils # 0.05 (0.01-0.08) x10^3/uL D-Dimer 1.34 H* (0.0-0.50) mg/L pO2/FiO2 Ratio % VBG pH (7.32-7.42) VBG pCO2 at Pat Temp (42-55) mm/Hg VBG pO2 at Pat Temp (25-40) mm/Hg VBG HCO3 (22-28) meq/L VBG O2 Sat (Miriam) (95-100) VBG Base Excess (-2.0-2.0) VBG Hemoglobin VBG Carboxyhemoglobin (0.0-6.9) % T HGB POC Potassium (3.5-5.1) Sodium 131 L (135-145) mmol/L Potassium 4.8 (3.5-5.1) mmol/L Chloride 100 (98-107) mmol/L Carbon Dioxide 22 (22-30) mmol/L Anion Gap 13.4 (5-15) MEQ/L BUN 19 (9-20) mg/dL Creatinine 1.14 (0.66-1.25) mg/dL Estimated GFR 71.4 ML/MIN Glucose 532 H* (74-106) mg/dL POC Glucometer (74 to 106) mg/dL Lactic Acid (0.4-2.0) Calcium 9.4 (8.4-10.2) mg/dL Magnesium 1.7 (1.6-2.3) mg/dL Total Bilirubin 1.20 (0.2-1.3) mg/dL AST 32 (17-59) U/L ALT 30 (0-50) U/L Alkaline Phosphatase 222 H (38-126) U/L Troponin I (0.000-0.033) ng/mL NT-Pro-B Natriuret Pep (<300) pg/mL Serum Total Protein 7.4 (6.3-8.2) g/dL Albumin 3.6 (3.5-5.0) g/dL 02/24/24 02/24/24 02/24/24 Range/Units 18:10 18:33 21:55 WBC (4.23-9.07) x10^3/uL RBC (4.63-6.08) x10^6/uL Hgb (13.7-17.5) g/dL Hct (40.1-51.0) % MCV (79.0-92.2) fL MCH (25.7-32.2) pg MCHC (32.3-36.5) g/dL RDW (11.6-14.4) % Plt Count (163-337) x10^3/uL MPV (9.4-12.4) fL Gran % (34.0-67.9) % Immature Gran % (Auto) (0.001-0.429) % Nucleat RBC Rel Count (0.00-0.2) % Eos # (Auto) (0.04-0.54) x10^3/uL Immature Gran # (Auto) (0.001-0.031) x10^3u/L Absolute Lymphs (auto) (1.32-3.57) x10^3/uL Absolute Monos (auto) (0.30-0.82) x10^3/uL Absolute Nucleated RBC (0.00-0.012) x10^3u/L Lymphocytes % (21.8-53.1) % Monocytes % (5.3-12.2) % Eosinophils % (0.8-7.0) % Basophils % (0.2-1.2) % Absolute Granulocytes (1.78-5.38) x10^3/uL Basophils # (0.01-0.08) x10^3/uL D-Dimer (0.0-0.50) mg/L pO2/FiO2 Ratio 21.0 % VBG pH 7.34 (7.32-7.42) VBG pCO2 at Pat Temp 48 (42-55) mm/Hg VBG pO2 at Pat Temp 32 (25-40) mm/Hg VBG HCO3 25.9 (22-28) meq/L VBG O2 Sat (Miriam) 57.7 L (95-100) VBG Base Excess -0.2 (-2.0-2.0) VBG Hemoglobin 10.4 VBG Carboxyhemoglobin 3.6 (0.0-6.9) % T HGB POC Potassium 4.5 (3.5-5.1) Sodium (135-145) mmol/L Potassium (3.5-5.1) mmol/L Chloride (98-107) mmol/L Carbon Dioxide (22-30) mmol/L Anion Gap (5-15) MEQ/L BUN (9-20) mg/dL Creatinine (0.66-1.25) mg/dL Estimated GFR ML/MIN Glucose (74-106) mg/dL POC Glucometer (74 to 106) mg/dL Lactic Acid 1.2 (0.4-2.0) Calcium (8.4-10.2) mg/dL Magnesium (1.6-2.3) mg/dL Total Bilirubin (0.2-1.3) mg/dL AST (17-59) U/L ALT (0-50) U/L Alkaline Phosphatase (38-126) U/L Troponin I 0.097 H* 0.093 H* (0.000-0.033) ng/mL NT-Pro-B Natriuret Pep 04451 (<300) pg/mL Serum Total Protein (6.3-8.2) g/dL Albumin (3.5-5.0) g/dL 02/24/24 Range/Units 22:52 WBC (4.23-9.07) x10^3/uL RBC (4.63-6.08) x10^6/uL Hgb (13.7-17.5) g/dL Hct (40.1-51.0) % MCV (79.0-92.2) fL MCH (25.7-32.2) pg MCHC (32.3-36.5) g/dL RDW (11.6-14.4) % Plt Count (163-337) x10^3/uL MPV (9.4-12.4) fL Gran % (34.0-67.9) % Immature Gran % (Auto) (0.001-0.429) % Nucleat RBC Rel Count (0.00-0.2) % Eos # (Auto) (0.04-0.54) x10^3/uL Immature Gran # (Auto) (0.001-0.031) x10^3u/L Absolute Lymphs (auto) (1.32-3.57) x10^3/uL Absolute Monos (auto) (0.30-0.82) x10^3/uL Absolute Nucleated RBC (0.00-0.012) x10^3u/L Lymphocytes % (21.8-53.1) % Monocytes % (5.3-12.2) % Eosinophils % (0.8-7.0) % Basophils % (0.2-1.2) % Absolute Granulocytes (1.78-5.38) x10^3/uL Basophils # (0.01-0.08) x10^3/uL D-Dimer (0.0-0.50) mg/L pO2/FiO2 Ratio % VBG pH (7.32-7.42) VBG pCO2 at Pat Temp (42-55) mm/Hg VBG pO2 at Pat Temp (25-40) mm/Hg VBG HCO3 (22-28) meq/L VBG O2 Sat (Mriiam) (95-100) VBG Base Excess (-2.0-2.0) VBG Hemoglobin VBG Carboxyhemoglobin (0.0-6.9) % T HGB POC Potassium (3.5-5.1) Sodium (135-145) mmol/L Potassium (3.5-5.1) mmol/L Chloride (98-107) mmol/L Carbon Dioxide (22-30) mmol/L Anion Gap (5-15) MEQ/L BUN (9-20) mg/dL Creatinine (0.66-1.25) mg/dL Estimated GFR ML/MIN Glucose (74-106) mg/dL POC Glucometer 167 H (74 to 106) mg/dL Lactic Acid (0.4-2.0) Calcium (8.4-10.2) mg/dL Magnesium (1.6-2.3) mg/dL Total Bilirubin (0.2-1.3) mg/dL AST (17-59) U/L ALT (0-50) U/L Alkaline Phosphatase (38-126) U/L Troponin I (0.000-0.033) ng/mL NT-Pro-B Natriuret Pep (<300) pg/mL Serum Total Protein (6.3-8.2) g/dL Albumin (3.5-5.0) g/dL - Radiology Impressions Radiology Exams & Impressions: Radiology Procedures Category Date Time Status CHEST WITHOUT CONTRAST [CT] Stat Exams 02/24/24 21:01 Taken - Other Procedures and Tests Respiratory Therapy 02/24/24 23:17 Respiratory Therapy Consult ONCE Assessment/Plan (1) Acute exacerbation of CHF (congestive heart failure) Current Visit: Yes Status: Acute Qualifiers: Code(s): I50.9 - HEART FAILURE, UNSPECIFIED (2) Hyperglycemia Current Visit: Yes Status: Acute Code(s): R73.9 - HYPERGLYCEMIA, UNSPECIFIED (3) Afib Current Visit: No Status: Acute Code(s): I48.91 - UNSPECIFIED ATRIAL FIBRILLATION (4) SOB (shortness of breath) Current Visit: Yes Status: Acute Code(s): R06.02 - SHORTNESS OF BREATH Telemedicine Encounter - Telemedicine Encounter Telemedicine Encounter: The entirety of this encounter was performed via Telemedicine" Acute systolic congestive heart failure exacerbation Patient admitted with acute shortness of breath, high NT proBNP, imaging consistent with pulmonary edema Received 60 mg IV Lasix in ER Etiology seems noncompliance Echo back in July consistent with EF around 33% Will continue 40 mg IV twice daily C/w Coreg, Aldactone Fluid restriction and low-salt diet S/p amputation of left index finger Patient just completed daptomycin as outpatient Currently on p.o. Bactrim continued here pt currently afebrile with no rise in wbc Elevated troponin, Chronically Seems type II IN due to demand ischemia due to underlying CHF exacerbation No chest pain reported Keep admit on telemetry Hopefully will be seen by cardiology in the morning Hyperglycemia Without DKA Initial blood sugar was more than 500 received 10 units insulin Followed by improvement in blood sugar to 160 Pseudohyponatremia Sodium level down to due to hyperglycemia We will continue following sodium closely Chronic atrial fibrillation Heart rate well-controlled S/p PPM We will continue home Coreg and Eliquis Type 2 diabetes mellitus Poorly controlled due to noncompliance last HB A1c Back in Saturday was more than 40 improved 10.26 I will keep him on medium dose sliding scale, will Resume home Lantus Continue carb consistent diet Elevated D-dimer Patient is contrast to iodine unable to get CT Can obtain VQ scan for further evaluation COPD Not in flare Dennied smoking DVT prophylaxis Eliquis GIT PPX Pepcid CODE STATUS full Discharge planning pending clinical stability. I have reviewed patient lab vitals and imaging in detail all question and concerns were addressed Time spent in are of this sick pt was > 40 min including FTF through televisit, chart review/coordination of care with pt, staff and science consultant
[2024-02-25] MEDS: Lasix 40 MG/4 ML IV SCH ×2 (01:09→05:28)
[2024-02-25] MEDS: Tessalon Perles 100 MG PO PRN (01:53)
[2024-02-25] MEDS: DESYREL 50 MG PO PRN ×2 (01:54→21:48)
[2024-02-25 04:58] LABS: Hematocrit 30.8 % (40.1-51.0); Hemoglobin 9.8 g/dL (13.7-17.5); Mean Cell Volume 87.5 fL (79.0-92.2); Mean Corpuscular Hemoglobin 27.8 pg (25.7-32.2); Mean Corpuscular Hgb Concent. 31.8 g/dL (32.3-36.5); Mean Platelet Volume 10.1 fL (9.4-12.4); Platelet Count 238 x10^3/uL (163-337); Red Blood Count 3.52 x10^6/uL (4.63-6.08); Red Cell Distribution Width 14.4 % (11.6-14.4); White Blood Count 7.1 x10^3/uL (4.23-9.07)
[2024-02-25 05:30] LABS: ANION GAP 11.7 MEQ/L (5-15); Calcium 9.2 mg/dL (8.4-10.2); Creatinine 1 1.15 mg/dL (0.66-1.25); EST GLOMERULAR FILTRATION RATE 70.6 ML/MIN
[2024-02-25] MEDS ORDERED: Protonix 40MG Tablet PO PRN (07:12)
[2024-02-25] MEDS: HUMALOG SQ SCH (08:48)
[2024-02-25] MEDS: HUMALOG SQ PRN (08:49)
--- NOTE | 2024-02-25 09:20 | XRAY ---
Indication: Short of breath. Multiple contiguous axial images obtained through the chest without contrast. Comparison: July 28, 2023 Heart remains enlarged again with incidental scattered coronary calcifications and left dual-lead pacemaker. Aorta is normal in course and caliber. No pathologic mediastinal lymphadenopathy. Lungs again demonstrates moderate bilateral pleural effusions, right greater than left. Again minimal right lower lobe compressive atelectasis. Stable minimal lingula and right middle lobe subsegmental atelectasis/scarring. Incidental tiny peripheral left lower lobe calcified granuloma. Bony thorax intact again with osteopenia and moderate degenerative changes throughout the spine. Again mild anasarca. Limited upper abdomen demonstrates new tiny perihepatic and perisplenic free fluid. Impression: 1. Again cardiomegaly, bilateral pleural effusions, and anasarca favoring cardiac decompensation/CHF. Tiny perihepatic/perisplenic fluid may be related. 2. Chronic findings including arteriosclerotic disease and old granulomatous disease.
[2024-02-25 10:09] LABS: Amphetamine,Urine NEGATIVE (NEGATIVE); Barbiturate,Urine NEGATIVE (NEGATIVE); Benzodiazepine,Urine NEGATIVE (NEGATIVE); Cocaine,Urine NEGATIVE (NEGATIVE); Methadone,Urine NEGATIVE (NEGATIVE); Opiate,Urine NEGATIVE (NEGATIVE); PCP,Urine NEGATIVE (NEGATIVE); THC,Urine NEGATIVE (NEGATIVE)
[2024-02-25] MEDS: Aldactone 25 MG PO SCH (10:30)
[2024-02-25] MEDS: Pepcid 20 MG PO SCH (10:30)
[2024-02-25] MEDS: BACTRIM DS TABLET PO SCH (10:30)
[2024-02-25] MEDS: Neurontin PO SCH (10:30)
[2024-02-25] MEDS: Cymbalta 30 MG Capsule PO SCH (10:30)
[2024-02-25] MEDS: Zestril 10 MG PO SCH (10:30)
[2024-02-25] MEDS: COREG 12.5 MG PO SCH (10:30)
[2024-02-25] MEDS: ELIQUIS 2.5 MG TABLET PO SCH (10:30)
[2024-02-25] MEDS: JARDIANCE PO SCH (10:31)
[2024-02-25] MEDS: Lantus Insulin SQ SCH (10:34)
--- NOTE | 2024-02-25 16:16 | PCM.CONS ---
History of Present Illness - Date of Consult Date of Encounter: 02/25/24 Consulting Skid Worker: GLENN MCCURDY MD Requesting Provider: Attending Provider: FARHEEN FERRERA MD Primary Care Provider: PCP: ROGELIO CAVAZOS DO Consent was: Given for this tele-med encounter - Consult Narrative Reason for Consult: CHF, elevated troponin HPI: 63 years old very M PMH chronic atrial fibrillation on Eliquis s/p pacemaker, anxiety/depression, GERD, obstructive sleep apnea, chronic bronchitis/COPD, chronic systolic CHF EF 33% (on echo from 07/2023), hypertension, diabetes mellitus peripheral neuropathy, recently discharged almost 10 days ago after getting treated for congestive heart failure exacerbation. He got readmitted with progressive shortness of breath for last few days with Orthopnea/PND, increased leg swelling. he seems non compliant with his meds and diet. no chest pain reported. In the ER the vital signs were stable. white cell count 7.8 hemoglobin 10.4 platelet count 275. Sodium 131 potassium 4.8 chloride 100 bicarb 32 BUN 19 creatinine 1.14 glucose 532. Troponin 0.093/0.097 (flat trend). NT proBNP [address] that was consistent with pulmonary edema D-dimer was running high around 1.34. He received total 60 mg IV Lasix in the ER and admitted for CHF exacerbation Denies belly pain, dysuria, hematuria, melena, hematochezia, seizures, paralysis, or other neurological changes. All other systems have been reviewed and are negative. cc:: The requesting physician will be sent a copy of the consult. Review of Systems - Review of Systems All systems: as per HPI - Past Medical History Past Medical History: Yes Neurological History: Peripheral Neuropathy ENT History: Cataracts Cardiac History: Arrhythmia, Congestive Heart Failure, High Cholesterol, Hypertension Respiratory History: Bronchitis, CHF, COPD, Sleep Apnea Endocrine Medical History: Diabetes Type II Musculoskelatal History: Arthritis, Osteoarthritis, Other GI Medical History: GERD, Gallbladder Disease History: Renal Disease Pyscho-Social History: Anxiety, Depression Male Reproductive Disorders: No Pertinent History Comment: a.fib, restless leg, bulging discs cervical spine, carpal tunnel - Past Surgical History Past Surgical History: Yes Neuro Surgical History: No Pertinent History Cardiac History: Pacemaker Respiratory Surgery: No Pertinent History GI Surgical History: Cholecystectomy Genitourinary Surgical Hx: No Pertinent History Musculskeletal Surgical Hx: Amputation Male Surgical History: No Pertinent History Other Surgical History: cardiac ablation, 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 Significant Family History: no pertinent family hx (No family history pertaining to this admission reported) - Social History Smoking Status: Never smoker Exposure to second hand smoke: No Alcohol: None Drug Use: none - Social Determinants of Health Will the patient participate in the screening: Declined to provide Do you worry about a steady place to live?: No Do you have any problems with any of the following?: No known problems In the past 12 months,have you had to go without utilities?: No Have you or anyone in your house had to go without enough: No Transportation Issues: No Has anyone in your support network made you feel unsafe?: No Does the patient want assistance with any of the above?: No Comment: pt has no running water, would like assistance Medications & Allergies Home Medications: Home Medication List Atorvastatin Calcium [Lipitor 40Mg] 40 mg PO HS 07/28/23 [History Confirmed 02/24/24] Duloxetine HCl [Cymbalta] 60 mg PO BID 07/28/23 [History Confirmed 02/24/24] Insulin Aspart [NovoLOG Insulin] 3 unit SQ AC 07/28/23 [History Confirmed 02/24/24] Insulin Glargine [Lantus Insulin] 20 unit SQ BID 07/28/23 [History Confirmed 02/24/24] Omeprazole 40 mg PO DAILY PRN 07/28/23 [History Confirmed 02/24/24] Ropinirole 2Mg [Requip 2Mg Tab] 2 mg PO HS 07/28/23 [History Confirmed 02/24/24] Trazodone HCl 50 mg [Desyrel 50 mg] 50 mg PO HS PRN 07/28/23 [History Confirmed 02/24/24] Apixaban [Eliquis 2.5 mg Tablet] 5 mg PO BID 30 Days #60 tablet 07/30/23 [Rx Confirmed 02/24/24] Spironolactone 25 mg [Aldactone 25 MG] 25 mg PO DAILY 30 Days #30 tablet 07/30/23 [Rx Confirmed 02/24/24] Furosemide 40 mg [Lasix 40 MG] 40 mg PO DAILY 30 Days #30 tablet 07/31/23 [Rx Confirmed 02/24/24] Potassium Chloride 20 meq PO DAILY 10/16/23 [History Confirmed 02/24/24] Empagliflozin [Jardiance] 25 mg PO DAILY 01/29/24 [History Confirmed 02/24/24] Gabapentin [Neurontin ] 100 mg PO TID 02/08/24 [History Confirmed 02/24/24] Smz/Tmp Ds Tablet [Bactrim Ds Tablet] 1 tab PO BID tablet 02/12/24 [Rx Confirmed 02/24/24] Carvedilol 12.5 mg [Coreg 12.5 mg] 12.5 mg PO BID 02/24/24 [History Confirmed 02/24/24] Lisinopril 10 mg [Zestril 10 MG] 10 mg PO DAILY 02/24/24 [History Confirmed 02/24/24] Torsemide 50 mg PO DAILY 02/24/24 [History Confirmed 02/24/24] Allergies/Adverse Reactions: Allergies Allergy/AdvReac Type Severity Reaction Status Date / Time diphenhydramine Allergy Difficulty Verified 02/24/24 23:49 [From Benadryl] Breathing Iodinated Contrast Media Allergy Difficulty Verified 02/24/24 23:49 Breathing Exam - Vitals Vital Signs: Vital Signs - 24 hr Temp Pulse Resp BP BP Pulse Ox 02/25/24 11:41 97.7 F 77 16 142/80 96 02/25/24 07:54 97.7 F 80 16 182/87 96 02/25/24 04:00 98.7 F 80 16 137/87 92 L 02/25/24 01:09 75 18 95 02/24/24 23:22 97.3 F 80 22 142/89 93 L 02/24/24 23:17 78 02/24/24 23:00 77 15 138/78 95 02/24/24 22:45 81 23 131/82 98 02/24/24 22:30 75 16 132/84 96 02/24/24 22:15 80 23 148/90 99 02/24/24 22:00 86 18 137/82 99 02/24/24 21:45 77 21 155/102 02/24/24 21:30 77 19 150/84 98 02/24/24 21:15 74 19 150/89 99 02/24/24 21:10 78 18 99 02/24/24 21:06 84 22 98 02/24/24 20:45 153/104 02/24/24 20:31 75 22 168/103 99 02/24/24 20:15 76 24 169/99 97 02/24/24 20:00 74 22 169/109 99 02/24/24 19:45 77 28 H 171/104 98 02/24/24 19:30 76 24 154/101 98 02/24/24 19:15 79 19 164/96 100 02/24/24 19:00 77 19 166/99 98 02/24/24 17:59 97.3 F 84 22 161/110 99 General:: alert and oriented x 4, mild distress HEENT: PERRLA, EOMI, JVD Cardiovascular Exam: regular rate/rhythm, normal heart sounds Respiratory Exam: crackles/rales SpO2: 96 Gastrointestinal/Abdomen Exam: soft Skin Exam: normal color, warm Extremity Exam: edema, moves all 4 extremities Neurologic: grout machine tender II-XII grossly intact Results Vital Signs: Vital Signs - 24 hr Temp Pulse Resp BP BP Pulse Ox 02/25/24 11:41 97.7 F 77 16 142/80 96 02/25/24 07:54 97.7 F 80 16 182/87 96 02/25/24 04:00 98.7 F 80 16 137/87 92 L 02/25/24 01:09 75 18 95 02/24/24 23:22 97.3 F 80 22 142/89 93 L 02/24/24 23:17 78 02/24/24 23:00 77 15 138/78 95 02/24/24 22:45 81 23 131/82 98 02/24/24 22:30 75 16 132/84 96 02/24/24 22:15 80 23 148/90 99 02/24/24 22:00 86 18 137/82 99 02/24/24 21:45 77 21 155/102 02/24/24 21:30 77 19 150/84 98 02/24/24 21:15 74 19 150/89 99 02/24/24 21:10 78 18 99 02/24/24 21:06 84 22 98 02/24/24 20:45 153/104 07/01/24 20:31 75 22 168/103 99 02/24/24 20:15 76 24 169/99 97 02/24/24 20:00 74 22 169/109 99 02/24/24 19:45 77 28 H 171/104 98 02/24/24 19:30 76 24 154/101 98 02/24/24 19:15 79 19 164/96 100 02/24/24 19:00 77 19 166/99 98 02/24/24 17:59 97.3 F 84 22 161/110 99 Pain Assessment - Last Documented Pain Intensity 0 Intake and Output: Intake & Output 02/23/24 02/24/24 02/25/24 02/26/24 11:59 11:59 11:59 11:59 Intake Total 720 480 Output Total 975 400 Balance -255 80 Weight 91.6 kg LAB: I have reviewed the Labs in [facility]. Radiology Exams: Radiology Procedures Category Date Time Status CHEST WITHOUT CONTRAST [CT] Stat Exams 02/24/24 21:01 Completed Multi-Disciplinary Progress Notes: Multi-Disciplinary Progress Notes 02/25/24 12:32 Case Management Note by Shirley Rossi S/W [facility] SUGGS [facility]ALL[facility]IVE CARE- THEY ANTICIPATE BEING ABLE TO ACCEPT PATIENT. THEY WILL NEED TO GET AUTH FROM INSURANCE AND THIS COULD TAKE UP TO 14 DAYS. THEY WILL CONTACT PATIENT ONCE AUTH IS RECEIVED TO SCHEDULE A VISIT. PATIENT MAY FOLLOW UP WITH THEM AT [phone] IF NEEDED. THEY WILL NEED FAXED THE DC INSTRUCTIONS, DC MED LIST AND DC SUMMARY TO [phone] Initialized on 02/25/24 12:32 - END OF NOTE 02/25/24 11:04 Case Management Note by Shirley Rossi REFERRAL FAXED TO [facility] AT THIS TIME Initialized on 02/25/24 11:04 - END OF NOTE 02/25/24 10:29 Case Management Note by Shirley Rossi PATIENT REPORTS HE IS OUT OF CYMBALTA, ELIQUIS AND SHORT ACTING INSULIN AT HOME. [facility] NOTIFIED. PATIENT REPORTS HE HAS NO MONEY TO AFFORD MEDS AT DC. WILL SEE IF [facility] CAN ASSIST AT DC. Initialized on 02/25/24 10:29 - END OF NOTE Assessment & Plan (1) Acute exacerbation of CHF (congestive heart failure) Current Visit: Yes Status: Acute Qualifiers: Heart failure type: combined systolic and diastolic Qualified Code(s): I50.43 - Acute on chronic combined systolic (congestive) and diastolic (congestive) heart failure Assessment & Plan: - C/w IV lasix. If not getting enough UOP, increase IV lasix to 60 mg BID - Monitor I/O, daily weights, electrolytes, renal function - goal net UOP -1.5 to -2.5 L / day - C/w home GDMT - c/w coreg 12.5 mg PO BID - c/w lisinopril 10 mg po daily - c/w spironolactone 25 mg daily - update echo - C/w Eliquis for stroke prevention - troponins flat; likely mildly elevated due to CHF and CKD. EKG reviewed with no obvious ischemia and pt denies chest pain - will need close outpatient cardiology f/u Code(s): I50.9 - HEART FAILURE, UNSPECIFIED - Encounter Encounter: "The entirety of this encounter was performed via Telemedicine using audio and visual "
[2024-02-25] MEDS: ZOCOR 20MG PO SCH (21:48)
[2024-02-25] MEDS: REQUIP 2MG TAB PO SCH (21:49)
[2024-02-26 04:50] LABS: Hematocrit 28.8 % (40.1-51.0); Hemoglobin 9.3 g/dL (13.7-17.5); Mean Corpuscular Hemoglobin 27.8 pg (25.7-32.2); Mean Corpuscular Hgb Concent. 32.3 g/dL (32.3-36.5); Mean Platelet Volume 10.2 fL (9.4-12.4); Platelet Count 232 x10^3/uL (163-337); Red Blood Count 3.35 x10^6/uL (4.63-6.08); Red Cell Distribution Width 14.8 % (11.6-14.4); White Blood Count 4.9 x10^3/uL (4.23-9.07)
[2024-02-26 05:23] LABS: ALBUMIN 2.8 g/dL (3.5-5.0); ANION GAP 10.3 MEQ/L (5-15); BILIRUBIN,TOTAL 0.6 mg/dL (0.2-1.3); Calcium 8.6 mg/dL (8.4-10.2); Creatinine 1 1.44 mg/dL (0.66-1.25); EST GLOMERULAR FILTRATION RATE 53.9 ML/MIN; Potassium 3.9 mmol/L (3.5-5.1); Total Protein 5.6 g/dL (6.3-8.2)
[2024-02-26 07:18] VITALS: RESP 17; O2SAT 92
--- NOTE | 2024-02-26 07:32 | PCM.DS ---
Discharge Summary Date of Admission: 02/24/24 23:08 Date of Discharge: 02/25/34 Admitting Physician: FARHEEN FERRERA MD Consults: Consults on Case 02/25/24 07:25 Consult Cardiology ROUTINE Primary Care Provider: ROGELIO CAVAZOS DO Allergies Allergies diphenhydramine [From Benadryl] Allergy (Verified 02/24/24 23:49) Difficulty Breathing Iodinated Contrast Media Allergy (Verified 02/24/24 23:49) Difficulty Breathing Hospital Summary - Hospital Course Hospital Course: 02/26/24 63 years old male with past medical history significant for chronic atrial fibrillation on Eliquis, anxiety/depression, GERD, obstructive sleep apnea, chronic bronchitis/COPD, chronic [place] congestive heart failure, s/p pacemaker, hypertension, diabetes mellitus peripheral neuropathy, recently discharged almost 10 days ago after getting treated for congestive heart failure exacerbation. He got readmitted with shortness of breath that started all of a sudden on 02/23, he was not able to lie flat, did c/o Orthopnea/PND, increased leg swelling. He endorsed wet cough with clear phlegm. He is non compliant with his meds and diet. no chest pain reported. CT that was consistent with pulmonary edema. D-dimer was running high around 1.34. He received total 60 mg IV Lasix in the ER and admitted for CHF exacerbation. Since then IV lasix continued and he has responded well. Edema and SOB improved. He is RA 99%. Kidney function is at baseline. Cardiology had no new recommendations. Pt to f/u with nephro, PCP, and cardiology. Case management set up Pallative care. He is out of some meds and will send in what is needed prior to d/c. Pt educated he needs to be more compliant with meds, diet, and f/u appointments to stay out of the hospital as he has had multiple request admissions for noncompliance. He is at high risk for readmission. He denies CP, SOB, abd. pain, N/V/D. - Vitals & Intake/Output Vital Signs: Vital Signs Temperature 97.2 F 02/26/24 07:18 Pulse Rate 88 02/26/24 07:18 Respiratory Rate 17 02/26/24 07:18 Blood Pressure 107/64 02/26/24 07:18 O2 Sat by Pulse Oximetry 92 L 02/26/24 07:18 Intake & Output: Intake & Output 02/23/24 02/24/24 02/25/24 02/26/24 11:59 11:59 11:59 11:59 Intake Total 720 1060 Output Total 975 3050 Balance - Weight 91.6 kg 90.5 kg - Lab Result Diagrams: 02/26/24 04:43 02/26/24 04:43 Lab Results-Last 24 Hrs: Lab Results-Last 24 Hours 02/25/24 02/25/24 02/25/24 Range/Units 07:48 09:43 11:35 WBC (4.23-9.07) x10^3/uL RBC (4.63-6.08) x10^6/uL Hgb (13.7-17.5) g/dL Hct (40.1-51.0) % MCV (79.0-92.2) fL MCH (25.7-32.2) pg MCHC (32.3-36.5) g/dL RDW (11.6-14.4) % Plt Count (163-337) x10^3/uL MPV (9.4-12.4) fL Sodium (135-145) mmol/L Potassium (3.5-5.1) mmol/L Chloride (98-107) mmol/L Carbon Dioxide (22-30) mmol/L Anion Gap (5-15) MEQ/L BUN (9-20) mg/dL Creatinine (0.66-1.25) mg/dL Estimated GFR ML/MIN Glucose (74-106) mg/dL POC Glucometer 244 H 232 H (74 to 106) mg/dL Calcium (8.4-10.2) mg/dL Total Bilirubin (0.2-1.3) mg/dL AST (17-59) U/L ALT (0-50) U/L Alkaline Phosphatase (38-126) U/L Serum Total Protein (6.3-8.2) g/dL Albumin (3.5-5.0) g/dL Urine Opiates Level NEGATIVE (NEGATIVE) Ur Methadone NEGATIVE (NEGATIVE) Urine Barbiturates NEGATIVE (NEGATIVE) Ur Phencyclidine (PCP) NEGATIVE (NEGATIVE) Urine Amphetamine NEGATIVE (NEGATIVE) U Benzodiazepine Level NEGATIVE (NEGATIVE) Urine Cocaine NEGATIVE (NEGATIVE) Urine Marijuana (THC) NEGATIVE (NEGATIVE) 07/02/24 07/02/24 07/03/24 Range/Units 16:39 21:43 04:43 WBC 4.9 (4.23-9.07) x10^3/uL RBC 3.35 L (4.63-6.08) x10^6/uL Hgb 9.3 L (13.7-17.5) g/dL Hct 28.8 L (40.1-51.0) % MCV 86.0 (79.0-92.2) fL MCH 27.8 (25.7-32.2) pg MCHC 32.3 (32.3-36.5) g/dL RDW 14.8 H (11.6-14.4) % Plt Count 232 (163-337) x10^3/uL MPV 10.2 (9.4-12.4) fL Sodium (135-145) mmol/L Potassium (3.5-5.1) mmol/L Chloride (98-107) mmol/L Carbon Dioxide (22-30) mmol/L Anion Gap (5-15) MEQ/L BUN (9-20) mg/dL Creatinine (0.66-1.25) mg/dL Estimated GFR ML/MIN Glucose (74-106) mg/dL POC Glucometer 117 H 167 H (74 to 106) mg/dL Calcium (8.4-10.2) mg/dL Total Bilirubin (0.2-1.3) mg/dL AST (17-59) U/L ALT (0-50) U/L Alkaline Phosphatase (38-126) U/L Serum Total Protein (6.3-8.2) g/dL Albumin (3.5-5.0) g/dL Urine Opiates Level (NEGATIVE) Ur Methadone (NEGATIVE) Urine Barbiturates (NEGATIVE) Ur Phencyclidine (PCP) (NEGATIVE) Urine Amphetamine (NEGATIVE) U Benzodiazepine Level (NEGATIVE) Urine Cocaine (NEGATIVE) Urine Marijuana (THC) (NEGATIVE) 02/26/24 02/26/24 02/26/24 Range/Units 04:43 06:06 07:11 WBC (4.23-9.07) x10^3/uL RBC (4.63-6.08) x10^6/uL Hgb (13.7-17.5) g/dL Hct (40.1-51.0) % MCV (79.0-92.2) fL MCH (25.7-32.2) pg MCHC (32.3-36.5) g/dL RDW (11.6-14.4) % Plt Count (163-337) x10^3/uL MPV (9.4-12.4) fL Sodium 133 L (135-145) mmol/L Potassium 3.9 (3.5-5.1) mmol/L Chloride 100 (98-107) mmol/L Carbon Dioxide 27 (22-30) mmol/L Anion Gap 10.3 (5-15) MEQ/L BUN 26 H (9-20) mg/dL Creatinine 1.44 H (0.66-1.25) mg/dL Estimated GFR 53.9 ML/MIN Glucose 122 H (74-106) mg/dL POC Glucometer 81 118 H (74 to 106) mg/dL Calcium 8.6 (8.4-10.2) mg/dL Total Bilirubin 0.60 (0.2-1.3) mg/dL AST 20 (17-59) U/L ALT 21 (0-50) U/L Alkaline Phosphatase 134 H (38-126) U/L Serum Total Protein 5.6 L (6.3-8.2) g/dL Albumin 2.8 L (3.5-5.0) g/dL Urine Opiates Level (NEGATIVE) Ur Methadone (NEGATIVE) Urine Barbiturates (NEGATIVE) Ur Phencyclidine (PCP) (NEGATIVE) Urine Amphetamine (NEGATIVE) U Benzodiazepine Level (NEGATIVE) Urine Cocaine (NEGATIVE) Urine Marijuana (THC) (NEGATIVE) Micro Results-Entire Visit: Accuchecks Date 02/26/24 Date 02/25/24 Date 02/25/24 Date 02/25/24 Time 07:15 Time 16:49 Time 11:40 Time 07:53 - Radiology Exams Ordered Rad Exams-Entire Visit: Radiology Procedures Category Date Time Status CHEST WITHOUT CONTRAST [CT] Stat Exams 02/24/24 21:01 Completed - Procedures and Test Procedures and Tests throughout Hospitalization: Therapy Orders & Screens 02/24/24 23:17 Respiratory Therapy Consult ONCE Comment: Reason For Exam: 02/25/24 00:07 OT Screen per Nursing Assess ONCE Comment: Protocol Order Physician Instructions: Greater than 3 points order OT Admission Screening Reason For Exam: Triggered on Admission Diagnosis: CHF exacerbation, shortness of breath Open Wound/Cellutlitis/Pressure Ulcers: Yes Acute Fx/ORIF/Change in wt bearing status: No Severe MUSCULOSKELETAL pain: No ADL Dysfunction: No Acute CVA w/Hemiparesis/Hemiplegia: No Decreased Functional Mobility/Strength: No Sprain/Strain: No Acute Post-op Mobility Dysfunction: No Total Points: 5 PT Screen per Nursing Assess ONCE Comment: Protocol Order Physician Instructions: Greater than 3 points order PT Admission Screenin Reason For Exam: Triggered on Admission Diagnosis: CHF exacerbation, shortness of breath Open Wound/Cellutlitis/Pressure Ulcers: Yes Acute Fx/ORIF/Change in wt bearing status: No Severe MUSCULOSKELETAL pain: No ADL Dysfunction: No Acute CVA w/Hemiparesis/Hemiplegia: No Decreased Functional Mobility/Strength: No Sprain/Strain: No Acute Post-op Mobility Dysfunction: No Total Points: 5 Discharge Exam General Appearance: no apparent distress, alert Neurologic Exam: alert, oriented x 3, cooperative, normal mood/affect, nml cerebellar function, sensation nml, No motor deficits Eye Exam: PERRL, EOMI, eyes nml inspection Ears, Nose, Throat Exam: normal ENT inspection, pharynx normal, moist mucous membranes Neck Exam: normal inspection, non-tender, supple, full range of motion Respiratory Exam: normal breath sounds, lungs clear, No respiratory distress Cardiovascular Exam: regular rate/rhythm, normal heart sounds, edema (non pitti ng BLLE- chronic) Gastrointestinal/Abdomen Exam: soft, No tenderness, No mass Male Genitalia Exam: deferred Rectal Exam: deferred Back Exam: normal inspection, normal range of motion, No CVA tenderness, No vertebral tenderness Extremity Exam: normal inspection, normal range of motion Skin Exam: normal color, warm, dry Wound Assessment: Skin/Wound Assessment Wound/Incision Assessment Start: 02/25/24 00:07 Text: Status: Active Freq: Q6H Protocol: Document 02/26/24 01:50 ROLANDA (Rec: 02/26/24 01:56 ROLANDA [id number]) Wound/Incision Assessment Left Hand Wound Assessment Shift Assessment Wound Type Incision Wound Stage Non Pressure Wound Drainage Amount None Drainage Odor None/Absent General Appearance Well Approximated Surrounding Tissue Dupont Comment healing incision from left index finger amputation - DEVENDRA right ring finger Wound Assessment Shift Assessment Wound Type blister Wound Stage Non Pressure Wound Drainage Amount None Surrounding Tissue Dupont Comment popped blister on inner aspect of right ring finger - 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 Right Finger Wound Assessment Shift Assessment Wound Type ulceration to tip of right thumb Wound Stage Non Pressure Wound Drainage Amount None Drainage Odor None/Absent General Appearance Reddened,Blackened,Necrotic Surrounding Tissue Dupont Comment wound dressing removed per patient - patient does not want a new dressing applied at this time Final Diagnosis/Problem List - Final Discharge Diagnosis/Problem (1) Acute exacerbation of CHF (congestive heart failure) Current Visit: Yes Status: Acute Assessment & Plan: Heart failure type: combined systolic and diastolic -Patient admitted with acute shortness of breath, high NT proBNP, imaging consistent with pulmonary edema -Received 60 mg IV Lasix in ER -Etiology seems noncompliance -Echo back in July consistent with EF around 33% -Will continue 40 mg IV twice daily -C/w Coreg, Aldactone -Fluid restriction and low-salt diet - Cardiology consult reviewed and agree with plan of care - F/U with cardiology OP Code(s): I50.9 - HEART FAILURE, UNSPECIFIED (2) CKD (chronic kidney disease) Current Visit: No Status: Acute Assessment & Plan: - creat 1.44- better than baseline - F/u with nephrology OP Code(s): N18.9 - CHRONIC KIDNEY DISEASE, UNSPECIFIED (3) Elevated troponin Current Visit: Yes Status: Acute Assessment & Plan: - likely demand ischemia due to underlying CHF exacerbation - No chest pain reported - telemetry - cardiology consult - cardiology note reviewed Code(s): R79.89 - OTHER SPECIFIED ABNORMAL FINDINGS OF BLOOD CHEMISTRY (4) Hyperglycemia Current Visit: Yes Status: Acute Assessment & Plan: -Without DKA -Initial blood sugar was more than 500 received 10 units insulin - Followed by improvement in blood sugar to 160 - pt states he ran out of insulin- will send in new RX Code(s): R73.9 - HYPERGLYCEMIA, UNSPECIFIED (5) Amputation of left index finger Current Visit: No Status: Acute Assessment & Plan: Patient just completed daptomycin as outpatient Currently on p.o. Bactrim continued here pt currently afebrile with no rise in wbc Code(s): S68.111A - COMPLETE TRAUMATIC MCP AMPUTATION OF LEFT INDEX FINGER, INIT (6) Hyponatremia Current Visit: No Status: Acute Assessment & Plan: Sodium level down to due to hyperglycemia We will continue following sodium closely Code(s): E87.1 - HYPO-OSMOLALITY AND HYPONATREMIA (7) Chronic a-fib Current Visit: Yes Status: Acute Assessment & Plan: Heart rate well-controlled S/p PPM We will continue home Coreg and Eliquis Code(s): I48.20 - CHRONIC ATRIAL FIBRILLATION, UNSPECIFIED - Discharge Discharge Date: 02/26/24 Disposition: Home, Self-Care Condition: Stable Prescriptions: Continue Duloxetine HCl [Cymbalta] 60 mg PO BID Ropinirole 2Mg [Requip 2Mg Tab] 2 mg PO HS Insulin Aspart [NovoLOG Insulin] 3 unit SQ AC Insulin Glargine [Lantus Insulin] 20 unit SQ BID Spironolactone 25 mg [Aldactone 25 MG] 25 mg PO DAILY 30 Days #30 tablet Apixaban [Eliquis 2.5 mg Tablet] 5 mg PO BID 30 Days #60 tablet Furosemide 40 mg [Lasix 40 MG] 40 mg PO DAILY 30 Days #30 tablet Potassium Chloride 20 meq PO DAILY Empagliflozin [Jardiance] 25 mg PO DAILY Smz/Tmp Ds Tablet [Bactrim Ds Tablet] 1 tab PO BID tablet Torsemide 50 mg PO DAILY Carvedilol 12.5 mg [Coreg 12.5 mg] 12.5 mg PO BID 30 Days #60 tablet Trazodone HCl 50 mg [Desyrel 50 mg] 50 mg PO HS PRN 30 Days #30 tablet PRN Reason: Insomnia Atorvastatin Calcium [Lipitor 40Mg] 40 mg PO HS 30 Days #30 tablet Gabapentin [Neurontin ] 100 mg PO TID 30 Days #90 cap Omeprazole 40 mg PO DAILY PRN 30 Days #30 cap PRN Reason: Indigestion Lisinopril 10 mg [Zestril 10 MG] 10 mg PO DAILY 30 Days #30 tablet Additional Instructions: [facility] WILL BE CONTACTING YOU TO ARRANGE AN APT WITHIN 2 WEEKS OF DC. IF YOU NEED TO FOLLOW UP WITH THEM YOU CAN CONTACT THEM AT [phone] Follow up with: ROGELIO CAVAZOS DO [Primary Care Provider] - 03/03/24 11:00 am HUBER MAYEN [CONSULTING PHYSICIAN] - 04/07/24 4:00 pm ([facility]) Sim Garcia MD [CONSULTING PHYSICIAN] - 03/05/24 2:00 pm
[2024-02-26 12:07] VITALS: BP 139/78; PULSE 78; TEMP 97.5
== END 2024-02-26 14:10 | disposition home or self-care (01) ==
LOC: ED 17:58 → MED SURG 23:08
PROVIDERS: ADMIT Internal Medicine; ATTEND Internal Medicine
DX: I13.0 Hypertensive heart and chronic kidney disease with heart failure and stage 1 through stage 4 chronic kidney disease, or unspecified chronic kidney disease (principal); E11.22 Type 2 diabetes mellitus with diabetic chronic kidney disease; N18.9 Chronic kidney disease, unspecified; I50.9 Heart failure, unspecified; R79.89 Other specified abnormal findings of blood chemistry; E11.65 Type 2 diabetes mellitus with hyperglycemia; S68.11 Complete traumatic metacarpophalangeal amputation of other and unspecified finger; E87.1 Hypo-osmolality and hyponatremia; I48.20 Chronic atrial fibrillation, unspecified; F41.8 Other specified anxiety disorders; R06.02 Shortness of breath; J44.9 Chronic obstructive pulmonary disease, unspecified; Z79.01 Long term (current) use of anticoagulants; Z79.899 Other long term (current) drug therapy; Z91.148 Patient's other noncompliance with medication regimen for other reason
CPT/HCPCS: 36000; 36415; 71250; 80048; 80053; 80307; 82805; 82947; 83605; 83735; 83880; 84484; 85025; 85027; 85379; 93268; 96372; 96374; 99285; G0378; Q3014; J1815; J1817; J1940; A9270-GY

== ENCOUNTER 2024-04-11 02:43 | Emergency (ER) | payer MEDICARE ==
[2024-04-11 03:05] VITALS: RESP 18; TEMP 97.8; O2SAT 100
[2024-04-11] MEDS ORDERED: XYLOCAINE 1% HCL 20 ML MDV ONE (03:24)
[2024-04-11] MEDS ORDERED: BACTRIM DS TABLET PO ONE (04:08)
[2024-04-11] MEDS ORDERED: NORCO 5/325 MG ONE (04:08)
--- NOTE | 2024-04-11 04:08 | ERPHSYRPT ---
- History of Present Illness Time Seen by Provider: 04/11/24 03:10 Source: patient Exam Limitations: no limitations Patient Subjective Stated Complaint: pt states he stepped on a fish hook and its stuck in his toe Triage Nursing Assessment: pt alert and oriented, answers questions approp. pt ambulates to room with limping gait. respirations nonlabored. skin warm and dry. fish hook to bottom of 2nd digit, rt foot. Physician History: This is a 63-year-old white male patient of Dr. Cavazos who is a diabetic and has a history of MRSA and stepped on a fishhook 45 minutes prior to arrival. Patient's states his tetanus status is up-to-date. The fishhook is stuck on the bottom of the right second digit. Patient is a diabetic, and has peripheral neuropathy and restless leg syndrome. Timing/Duration: today Severity: mild Location: feet Possible Causes: other (Stepped on a fishhook) Associated Symptoms: denies symptoms Allergies/Adverse Reactions: diphenhydramine [From Benadryl] Allergy (Verified 04/11/24 03:05) Difficulty Breathing Iodinated Contrast Media Allergy (Verified 04/11/24 03:05) Difficulty Breathing Home Medications: Duloxetine HCl [Cymbalta] 60 mg PO BID 07/28/23 [History] Insulin Aspart [NovoLOG Insulin] 3 unit SQ AC 07/28/23 [History] Insulin Glargine [Lantus Insulin] 20 unit SQ BID 07/28/23 [History] Ropinirole 2Mg [Requip 2Mg Tab] 2 mg PO HS 07/28/23 [History] Potassium Chloride 20 meq PO DAILY 10/16/23 [History] Empagliflozin [Jardiance] 25 mg PO DAILY 01/29/24 [History] Torsemide 50 mg PO DAILY 02/24/24 [History] Hx Tetanus, Diphtheria Vaccination/Date Given: Yes Hx Influenza Vaccination/Date Given: Yes Hx Pneumococcal Vaccination/Date Given: Yes Immunizations Up to Date: Yes Travel Risk - International Travel Have you traveled outside of the country in past 3 weeks: No - Emerging Infectious Disease Are you exhibiting symptoms associated with any current EIDs: No Symptoms: Shortness of Breath - Review of Systems Constitutional: No Symptoms Eyes: No Symptoms Ears, Nose, & Throat: No Symptoms Respiratory: No Symptoms Cardiac: No Symptoms Abdominal/Gastrointestinal: No Symptoms Genitourinary Symptoms: No Symptoms Musculoskeletal: Injury (Plantar surface right foot second digit) Skin: Other (Hugo stuck plantar surface right foot second digit) Neurological: No Symptoms Psychological: No Symptoms Endocrine: No Symptoms Hematologic/Lymphatic: No Symptoms Immunological/Allergic: No Symptoms All Other Systems: Reviewed and Negative - Past Medical History Pertinent Past Medical History: Yes Neurological History: Peripheral Neuropathy ENT History: Cataracts Cardiac History: Arrhythmia, Congestive Heart Failure, High Cholesterol, Hyperte nsion Respiratory History: Bronchitis, CHF, COPD, Sleep Apnea Endocrine Medical History: Diabetes Type II Musculoskeletal History: Arthritis, Osteoarthritis, Other GI Medical History: GERD, Gallbladder Disease History: Renal Disease Psycho-Social History: Anxiety, Depression Male Reproductive Disorders: No Pertinent History Other Medical History: a.fib, restless leg, bulging discs cervical spine, carpal tunnel - Past Surgical History Past Surgical History: Yes Neuro Surgical History: No Pertinent History Cardiac: Pacemaker Respiratory: No Pertinent History Gastrointestinal: Cholecystectomy Genitourinary: No Pertinent History Musculoskeletal: Amputation Male Surgical History: No Pertinent History Other Surgical History: cardiac ablation, 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 Significant Family History: no pertinent family hx (No family history pertaining to this admission reported) - Social History Smoking Status: Never smoker Exposure to second hand smoke: Yes Drug Use: none Patient Lives Alone: No - Social Determinants of Health Will the patient participate in the screening: Declined to provide - Nursing Vital Signs Nursing Vital Signs: Initial Vital Signs Temperature 97.8 F 04/11/24 02:56 Pulse Rate 79 04/11/24 02:56 Respiratory Rate 18 04/11/24 02:56 Blood Pressure 151/91 04/11/24 02:56 O2 Sat by Pulse Oximetry 100 04/11/24 02:56 Pain Scale Pain Intensity 9 - Physical Exam General Appearance: no apparent distress, alert, anxiety Eye Exam: PERRL/EOMI, eyes nml inspection Ears, Nose, Throat Exam: normal ENT inspection, moist mucous membranes Neck Exam: normal inspection, non-tender, supple, full range of motion Respiratory Exam: airway intact, No chest tenderness, No respiratory distress Gastrointestinal/Abdomen Exam: No tenderness Rectal Exam: not done Back Exam: normal inspection, normal range of motion, No CVA tenderness, No vertebral tenderness Extremity Exam: normal range of motion, pelvis stable Neurologic Exam: alert, oriented x 3, cooperative, 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 The right foot second toe was prepped with Betadine solution. Patient is not allergic to Betadine solution. He states he uses this often. The patient states that he does not have much pain and prefers that we do not use the lidocaine 1% plain. He does not think he needs that. Using hemostats and wire cutters, the full fishhook was removed in 2 pieces. The area then was cleaned and Band-Aid was placed overlying the toe entrance and exit sites. The patient tolerated the procedure well. - Course Nursing assessment & vital signs reviewed: Yes Ordered Tests: Medication Summary Discontinued Medications Generic Name Dose Route Start Last Admin Trade Name Fletcher PRN Reason Stop Dose Admin Hydrocodone Bitart/Acetaminophen 1 tab 04/11/24 03:58 Hydrocodone/Apap 5/325 1 Tab Tablet PO 04/11/24 03:59 STAT ONE Hydrocodone Bitart/Acetaminophen 2 tab 04/11/24 03:59 Hydrocodone/Apap 5/325 1 Tab Tablet PO 04/11/24 04:00 SENT HOME W/ PATIENT ONE Lidocaine HCl Confirm 04/11/24 03:24 Lidocaine Hcl 1% 20 Ml Mdv 20 Ml Ml Administered 04/11/24 03:25 Dose 5 ml .ROUTE .STK-MED ONE Trimethoprim/Sulfamethoxazole 1 tab 04/11/24 03:58 Smz/Tmp Ds Tablet 1 Tablet PO 04/11/24 03:59 STAT ONE - Progress Progress: improved, re-examined Progress Note: 04/11/24 04:07 My medical decision making and the assignment of low complexity to this patient's medical issue today is based on review of the patient's past medical history, review of the patient's medication list, review the patient drug allergy list, history present illness and physical findings on examination. No radiographic or laboratory studies are necessary in taking care of this patient today. Counseled pt/family regarding: diagnosis, need for follow-up Medical Desision Making - Diagnostic Testing Diagnostic test were ordered, analyzed, and reviewed by me: No - Risk of complications The pt has a mod risk of morbidity or mortality based on: Need for prescription drug management - Departure Departure Disposition: Home Clinical Impression: Foreign body (FB) in soft tissue Condition: Stable Critical Care Time: No Referrals: ROGELIO CAVAZOS DO [Primary Care Provider] - Follow up/PCP as directed Additional Instructions: Keep your right foot clean twice a day with soap and water. May soak the foot in warm soapy water or warm Epsom salts twice a day. Do not use lotions or ointments or creams to the site. Take your antibiotics as prescribed. Call your primary care provider on 04/13/2024 to make arrangements for a follow-up appointment and to be seen in the next 5 to 7 days. Prescriptions: Smz/Tmp Ds Tablet [Bactrim Ds Tablet] 1 udtab PO BID #14 tablet
[2024-04-11] MEDS: NORCO 5/325 MG PO ONE ×2 (04:09)
[2024-04-11] MEDS: BACTRIM DS TABLET PO ONE (04:09)
[2024-04-11 04:39] VITALS: BP 148/95; PULSE 74
== END 2024-04-11 04:23 | disposition home or self-care (01) ==
LOC: ED 02:43
DX: S91.144A Puncture wound with foreign body of right lesser toe(s) without damage to nail, initial encounter (principal); W22.8XXA Striking against or struck by other objects, initial encounter; W26.8XXA Contact with other sharp object(s), not elsewhere classified, initial encounter; W45.8XXA Other foreign body or object entering through skin, initial encounter; E11.42 Type 2 diabetes mellitus with diabetic polyneuropathy; E78.5 Hyperlipidemia, unspecified; I11.0 Hypertensive heart disease with heart failure; I50.9 Heart failure, unspecified; Z79.4 Long term (current) use of insulin; Z79.84 Long term (current) use of oral hypoglycemic drugs; Z79.899 Other long term (current) drug therapy
CPT/HCPCS: 99282; A9270-GY

== ENCOUNTER 2024-04-18 15:53 | Emergency (ER) | payer MEDICARE ==
[2024-04-18 16:28] VITALS: TEMP 98.1
[2024-04-18] MEDS ORDERED: Zofran 4 MG/2 ML VIAL ONE (16:40)
[2024-04-18] MEDS ORDERED: MORPHINE SULFATE 4 MG INJ ONE (16:40)
[2024-04-18] MEDS: Zofran 4 MG/2 ML VIAL IV ONE (16:41)
[2024-04-18] MEDS: MORPHINE SULFATE 4 MG INJ IV ONE (16:41)
[2024-04-18 16:44] LABS: Absolute Neutrophil Ct (ANC) 2.76 x10^3/uL (1.78-5.38); BASOPHIL % 1.2 % (0.2-1.2); Basophil (Absolute #) 0.05 x10^3/uL (0.01-0.08); Eosinophil % 1.6 % (0.8-7.0); Eosinophil (Absolute #) 0.07 x10^3/uL (0.04-0.54); Hematocrit 29.9 % (40.1-51.0); Hemoglobin 9.9 g/dL (13.7-17.5); IMMATURE GRAN # 0.01 x10^3u/L (0.001-0.031); IMMATURE GRAN % 0.2 % (0.001-0.429); Lymphocyte (Absolute #) 1.04 x10^3/uL (1.32-3.57); Lymphocytes % 24.5 % (21.8-53.1); Mean Cell Volume 83.5 fL (79.0-92.2); Mean Corpuscular Hemoglobin 27.7 pg (25.7-32.2); Mean Corpuscular Hgb Concent. 33.1 g/dL (32.3-36.5); Mean Platelet Volume 9.6 fL (9.4-12.4); Monocyte (Absolute #) 0.32 x10^3/uL (0.30-0.82); Monocytes % 7.5 % (5.3-12.2); Platelet Count 212 x10^3/uL (163-337); Red Blood Count 3.58 x10^6/uL (4.63-6.08); Red Cell Distribution Width 14.9 % (11.6-14.4); White Blood Count 4.3 x10^3/uL (4.23-9.07)
--- NOTE | 2024-04-18 16:51 | XRAY ---
CLINICAL HISTORY: Blurred vision right eye COMPARISON: 10/16/2023 TECHNIQUE: Axial non-contrast CT scan of the brain was performed from the skull base to the high parietal region with multiple reformats. One of the following dose reduction techniques were utilized for this exam: Automated exposure control, adjustment of the mA and/or kV according to patient size, use of iterative reconstruction. FINDINGS: Brain Parenchyma: Ill defined hypodensity noted at right anterior limb of internal capsule without mass effect suggesting subacute infarction. Normal attenuation of the cerebral hemispheres, cerebellum, and brainstem. No evidence of hemorrhage, or mass effect. Ventricular System: Ventricles are mildly dilated in size with presrved configuration, due to age related changes. No evidence of hydrocephalus. Subarachnoid Spaces: Prominent sulci and cisterns. No evidence of subarachnoid hemorrhage or extra-axial fluid collections. Cerebellum and Brainstem: Normal size and signal. No masses, lesions, or areas of abnormal signal. Orbits: Normal appearance of the globes, optic nerves, and extraocular muscles. No evidence of orbital masses or abnormal signal. Sinuses: Clear paranasal sinuses. No evidence of sinusitis or mucosal thickening. Mastoid Air Cells: Clear mastoid air cells. No evidence of mastoiditis. Skull and Meninges: Normal skull morphology. No evidence of meningeal thickening. IMPRESSION: 1. 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 2. Background of mild senile changes. Electronically Signed by: Brandin Miles MD. (04/18/2024 16:46:15 EDT) ADDENDUM: 04/18/2024 16:47:44 EDT [facility] was called at [phone] Ext#[phone] at 3:46 PM RADIO FREQUENCY TECHNICIAN, 04/18/2024, and Stroke results were verbally communicated to Dr. Rodriguez. Electronically Signed by: Brandin Miles MD. (04/18/2024 16:47:44 EDT)
[2024-04-18 17:00] LABS: ALBUMIN 3.5 g/dL (3.5-5.0); ANION GAP 11.1 MEQ/L (5-15); BILIRUBIN,TOTAL 0.5 mg/dL (0.2-1.3); Calcium 8.6 mg/dL (8.4-10.2); Creatinine 1 1.28 mg/dL (0.66-1.25); EST GLOMERULAR FILTRATION RATE 62.1 ML/MIN; Potassium 4.6 mmol/L (3.5-5.1); Total Protein 6.6 g/dL (6.3-8.2)
--- NOTE | 2024-04-18 17:00 | PCM.CONS ---
History of Present Illness - Neuro Consultation ED Arrival Date & Time: 04/18/24 15:53 Providers: Attending Provider: ED Provider: NACHO HURT MD Consulting Provider: FLACA SPENCE MD Reason for Consult: right eye blurry vision cc:: The requesting physician will be sent a copy of the consult.right eye blurry vision - Chief Complaint Patient Subjective Stated Complaint: Teleneurology Attestation & Consent: As the provider for this telehealth consult requested by the patients primary attending physician, I attest that I introduced myself to the patient, provided my credentials, disclosed my location, and determined that, based on a review of the patients chart and discussion with the patients primary team, telemedicine via a real-time, two-way, interactive audio and video platform is an appropriate and effective means of providing this service. The patient and I mutually agree that this visit is appropriate for telemedicine. The patient has consented to th is telemedicine visit. 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 Time of stroke alert: 1552h MASONRY INSTRUCTOR. Time stroke alert page returned: 1553h MASONRY INSTRUCTOR. Was the patient seen on camera?: yes - History of Present Illness HPI: The patient is a 63M with h/o PPM (on eliquis ) presents with right eye blurry vision. About 1 hr prior to presentation he had a red and black streak shoot up from the bottom oh is right eye into his eye. His right eye is blurry and he sees streaks.He had been fishing all night and this afternoon he experienced sudden right eye blurry vision and see streaks and red and black floaters in his right eye. He saw an opthalmologist on 04/15/24 and has severe cataracts and is being planned for cataract surgery.He has a PPM and takes eliquis 5mg bid, his last dose was this afternoon.He says his legs gave out on him an dhe went down on his knees. He denies focal weakness, dysphagia, dysarthria, smoking, alcohol abuse, illicit drug use, eye pain, Review of Systems - Review of Systems Review of Systems (Narrative): Pertinent positive and negative findings as per HPI. All other systems negative. Constitutional: Denies fevers, chills, weight loss ENT: Denies tinnitus Ophthalmology: Denies diplopia, vision loss Respiratory: Denies SOB, cough Cardiovascular: Denies chest pains, palpitations GI: Denies nausea, vomiting : Denies hematuria Hematology: Denies excessive bleeding Musculoskeletal: Denies back pain, neck pain, joint pain Neurology: Denies headache, altered mentation Mental Health: Denies anxiety Dermatology: Denies rash - Past Medical History Past Medical History: Yes Neurological History: Peripheral Neuropathy ENT History: Cataracts Cardiac History: Arrhythmia, Congestive Heart Failure, High Cholesterol, Hypertension Respiratory History: Bronchitis, CHF, COPD, Sleep Apnea Endocrine Medical History: Diabetes Type II Musculoskelatal History: Arthritis, Osteoarthritis, Other GI Medical History: GERD, Gallbladder Disease History: Renal Disease Pyscho-Social History: Anxiety, Depression Male Reproductive Disorders: No Pertinent History Comment: a.fib, restless leg, bulging discs cervical spine, carpal tunnel - Past Surgical History Past Surgical History: Yes Neuro Surgical History: No Pertinent History Cardiac History: Pacemaker Respiratory Surgery: No Pertinent History GI Surgical History: Cholecystectomy Genitourinary Surgical Hx: No Pertinent History Musculskeletal Surgical Hx: Amputation Male Surgical History: No Pertinent History Other Surgical History: cardiac ablation, 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 Significant Family History: no pertinent family hx (No family history pertaining to this admission reported) - Social History Smoking Status: Never smoker Exposure to second hand smoke: Yes Alcohol: None Drug Use: none - Social Determinants of Health Will the patient participate in the screening: Yes Do you worry about a steady place to live?: No Do you have any problems with any of the following?: No known problems In the past 12 months,have you had to go without utilities?: No Have you or anyone in your house had to go without enough: No Transportation Issues: No Has anyone in your support network made you feel unsafe?: No Does the patient want assistance with any of the above?: No Comment: pt has no running water, would like assistance Physical Exam - Vital Signs Vital Signs: Vital Signs - 24 hr 04/18/ 16:08 Temperature 98.1 F Pulse Rate 81 Respiratory 20 Rate Blood Pressure 150/71 [Right Arm] O2 Sat by Pulse 98 Oximetry - Physical Exam Tele-Neuro Physical Exam (Narrative): Gen: Well developed, well nourished. No acute distress. MS: Awake and oriented. Alert.decreased visual acuity in right eye. Fund of knowledge, memory, and language at baseline. CV: Regular rate. No edema. children's ministry director: [place], EOMI. +blink. Unable to visualize fundi. Sensation intact. Face is symmetric. Hearing intact. Trapezii strong. Tongue midline. Motor: Antigravity in all 4 extremities. Normal tone and bulk. Sens: Intact to light touch in all 4 extremities. MSR: Unable to assess through telemedicine, no clonus noted. Mvmt: No tremors noted. JAYA/FTN intact. Gait: Deferred. NIHSS Mental status (0-3): 0 Month/age (0-2): 0 Commands (0-2): 0 Best Gaze (0-2): 0 Visual Sparks (0-3):0 Facial weakness (0-3): 0 LUE (0-4): 0 RUE (0-4): 0 LLE (0-4): 0 RLE (0-4): 0 Ataxia (0-2): 0 Sensation (0-2): 1 Aphasia (0-3): 0 Dysarthria (0-2): 0 Extinction (0-2): 0 NIHSS Total: 1 Results - Labs Lab/Micro Results: Lab Results-Last 24 Hours 04/18/24 Range/Units 16:04 POC Glucometer 331 H (74 to 106) mg/dL Accuchecks Date 04/18/24 Time 16:04 - Radiology Orders Radiology Orders: Radiology Procedures Category Date Time Status HEAD WITHOUT CONTRAST [CT] Stat Exams 04/18/24 15:59 Completed Impressions & Recommendations - Impression Acute Ischemic Stroke: 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 - Only treat if SBP>220 and or DBP>120 then gradually lower BP after 24hrs to goal <130/80 - Baseline EKG and CXR - Basic labs: CBC, CMP, coagulation panel and troponin - Intravenous hydration with normal saline at 75cc per hour - NPO until after COLLECTIONS ASSOCIATE eval -Replace electrolytes prn-Keep K >4.0, Mg > 2.0. - Head of bed > 30 degrees for aspiration prevention and aspiration precautions -ophthalmology consult for right eye floaters and redness Stroke workup: -CTH:subacute infarct in anterior limb of right internal capsule -stat CTA head and neck:can't have iodine contrast due to allergy. Stat MRA head and neck: If LVO get stat neuro interventional consult -MRI: -Trans-thoracic echocardiogram with bubble study -Continuous cardiac telemetry to monitor for arrhythmia -Stroke labwork: HgbA1C, lipid panel, urine drug screen Secondary prevention of stroke: -Aspirin 81mg daily -anticoagulation is usually temporarily held until MRI brain rules out acute stroke -Atorvastatin 40 mg daily (long-term goal LDL < 70) -Tight glucose control (long-term goal HgbA1c < 7%) -Stroke education and counseling -If smoker, smoking counseling and offer assistance with smoking cessation (possible nicotine patch) Stroke rehabilitation: -Physical therapy, occupational therapy, speech therapy consults -Consult social work and case management for help with discharge Other medical issues: HTN: DM: Prophylaxis: SCDs (DVT), heparin 5000u q8h if no contraindications, famotidine, docusate (GI) - ED Arrival Time ED Arrival Date & Time: ED Arrival Date and Time 04/18/24 15:53 Last known well time: - NIHSS Pre-Admission mRS: 0 - Recommendations Recommendations: Medical decision making: Acute issues prompting hospitalization enumerated, reviewed and managed individually as above. Complexity of Chronic Problems enumerated, reviewed and managed individually as above. Independently interpreted labs and radiology. Risk of morbidity reviewed. Additional testing/treatment as discussed individually above. Discussed findings with patient/family, charge nurse/bedside nurse. Included in the discussion were the latest clinical, laboratory and imaging findings. We also discussed updated working diagnosis, overall impression and updated plan of care. In this discussion, current plan for treatment, medication indication discussed. Patient/family member agreeable to discussed plan of care. I answered all the questions to their satisfaction. Acute care plan was discussed with Dr Hurt Thank you for allowing us to participate in this patients care. Please call [facility] with questions, concerns, or change in patients neurological status. Assessment & Plan - Encounter Encounter: "The entirety of this encounter was performed via Telemedicine using audio and visual "
[2024-04-18] MEDS: Ecotrin 325 MG PO ONE (17:46)
--- NOTE | 2024-04-18 17:58 | ERPHSYRPT ---
- History of Present Illness Time Seen by Provider: 04/18/24 15:56 Source: patient Exam Limitations: no limitations Patient Subjective Stated Complaint: Visual changes Triage Nursing Assessment: Patient ambulated back to ED and transferred self to bed. Patient A+O X3. Patient's skin pink, warm and dry. Patient states he started seeing a dark, red thick streak coming from the bottom of his right eye to the top. Patient was concered his eye was bleeding when his family stated there was nothing in his right eye. Patient denies pain or discomfort to eye, but complains of ble pain 10/10, which he always has. Physician History: 63-year-old male with multiple medical problems, hypertension, hyperlipidemia, atrial fibrillation on Eliquis, pacemaker placement, congestive heart failure, diabetes mellitus, multiple amputations of the fingers both hands, noncompliant presented in the ER with complains of sudden onset black to red streaking waving around his right eye going inside. Patient reports floating like sensations in the right eye. Denies any eye pain. Patient has been catching fish all night long and this afternoon. Denies any trauma. Patient reports he was seen by his eye doctor couple of days ago and was recommended to have bilateral cataract surgery. Denies any focal numbness tingling or weakness. Has chronic weakness of left upper extremity as compared to right which is not any worse than usual. Denies any chest pain palpitations or shortness of breath. Patient has been taking Eliquis religiously lately. Allergies/Adverse Reactions: diphenhydramine [From Benadryl] Allergy (Verified 04/18/24 16:00) Difficulty Breathing Iodinated Contrast Media Allergy (Verified 04/18/24 16:00) Difficulty Breathing Home Medications: Duloxetine HCl [Cymbalta] 60 mg PO BID 07/28/23 [History] Insulin Aspart [NovoLOG Insulin] 3 unit SQ AC 07/28/23 [History] Insulin Glargine [Lantus Insulin] 20 unit SQ BID 07/28/23 [History] Ropinirole 2Mg [Requip 2Mg Tab] 2 mg PO HS 07/28/23 [History] Potassium Chloride 20 meq PO DAILY 10/16/23 [History] Empagliflozin [Jardiance] 25 mg PO DAILY 01/29/24 [History] Torsemide 50 mg PO DAILY 02/24/24 [History] Hx Tetanus, Diphtheria Vaccination/Date Given: Yes Hx Influenza Vaccination/Date Given: Yes Hx Pneumococcal Vaccination/Date Given: Yes Immunizations Up to Date: Yes Travel Risk - International Travel Have you traveled outside of the country in past 3 weeks: No - Emerging Infectious Disease Are you exhibiting symptoms associated with any current EIDs: No Symptoms: Shortness of Breath - Review of Systems Constitutional: No Symptoms Eyes: Vision Changes Ears, Nose, & Throat: No Symptoms Respiratory: No Symptoms Cardiac: No Symptoms Abdominal/Gastrointestinal: No Symptoms Genitourinary Symptoms: No Symptoms Musculoskeletal: No Symptoms Skin: No Symptoms Neurological: Sensory Changes Psychological: No Symptoms Endocrine: No Symptoms Hematologic/Lymphatic: No Symptoms - Past Medical History Pertinent Past Medical History: Yes Neurological History: Peripheral Neuropathy ENT History: Cataracts Cardiac History: Arrhythmia, Congestive Heart Failure, High Cholesterol, Hypertension Respiratory History: Bronchitis, CHF, COPD, Sleep Apnea Endocrine Medical History: Diabetes Type II Musculoskeletal History: Arthritis, Osteoarthritis, Other GI Medical History: GERD, Gallbladder Disease History: Renal Disease Psycho-Social History: Anxiety, Depression Male Reproductive Disorders: No Pertinent History Other Medical History: a.fib, restless leg, bulging discs cervical spine, carpal tunnel - Past Surgical History Past Surgical History: Yes Neuro Surgical History: No Pertinent History Cardiac: Pacemaker Respiratory: No Pertinent History Gastrointestinal: Cholecystectomy Genitourinary: No Pertinent History Musculoskeletal: Amputation Male Surgical History: No Pertinent History Other Surgical History: cardiac ablation, 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 Significant Family History: no pertinent family hx (No family history pertaining to this admission reported) - Social History Smoking Status: Never smoker Exposure to second hand smoke: Yes Drug Use: none Patient Lives Alone: No - Social Determinants of Health Will the patient participate in the screening: Yes Do you worry about a steady place to live?: No Do you have any problems with any of the following?: No known problems In the past 12 months,have you had to go without utilities?: No Transportation Issues: No Has anyone in your support network made you feel unsafe?: No Have you or anyone in your house had to go without enough: No Comment: pt has no running water, would like assistance - Nursing Vital Signs Nursing Vital Signs: Initial Vital Signs Pulse Rate 79 04/18/24 16:01 Respiratory Rate 16 04/18/24 16:01 Blood Pressure 150/71 04/18/24 16:01 O2 Sat by Pulse Oximetry 98 04/18/24 16:01 Pain Scale Pain Intensity 0 - [place] Coma Scale Best Eye Response ([place]): (4) open spontaneously Best Verbal Response ([place]): (5) oriented Best Motor Response ([place]): (6) obeys commands [place] Total: 15 - Physical Exam General Appearance: no apparent distress, alert Eye Exam: bilateral eye: normal inspection, PERRL, EOMI, vision changes Ears, Nose, Throat Exam: normal ENT inspection, TMs normal, pharynx normal, moist mucous membranes Neck Exam: normal inspection, non-tender, supple, full range of motion Respiratory: normal breath sounds, lungs clear Cardiovascular: regular rate/rhythm, normal heart sounds Gastrointestinal: soft, normal bowel sounds, No tenderness Back Exam: normal inspection, normal range of motion Extremity Exam: normal inspection, normal range of motion, pelvis stable Mental Status: alert, oriented x 3, 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 Exam: normal hearing, normal speech, PERRL, No abnormal eye position Coordination/Gait: normal finger to nose, normal gait, normal cerebellar function Motor/Sensory: no motor deficit, no pronator drift, negative Babinski's sign, No no sensory deficit DTR: bicep (R): 2+, bicep (L): 2+, knee (R): 2+, knee (L): 2+ Skin Exam: normal color SpO2 Interpretation: normal SpO2: 92 O2 Delivery: Room Air - Course EKG Interpreted by Me: RATE (75), A-fib, Right [place] Deviation, Q-wave, Non- specific ST Changes Ordered Tests: Medication Summary Discontinued Medications Generic Name Dose Route Start Last Admin Trade Name Fletcher PRN Reason Stop Dose Admin Aspirin 325 mg 04/18/24 17:30 04/18/24 17:46 Aspirin 325 Mg Tablet.Ec PO 04/18/24 17:31 325 mg NOW ONE Administration Morphine Sulfate Confirm 04/18/24 16:40 Morphine Sulfate 4 Mg/Ml Injection Administered 04/18/24 16:41 Dose 4 mg .ROUTE .STK-MED ONE Morphine Sulfate 4 mg 04/18/24 16:42 04/18/24 16:41 Morphine Sulfate 4 Mg/Ml Injection IV 04/18/24 16:43 4 mg STAT ONE Administration Ondansetron HCl Confirm 04/18/24 16:40 Ondansetron Hcl 4 Mg/2 Ml Vial Administered 04/18/24 16:41 Dose 4 mg .ROUTE .STK-MED ONE Ondansetron HCl 4 mg 04/18/24 16:42 04/18/24 16:41 Ondansetron Hcl 4 Mg/2 Ml Vial IV 04/18/24 16:43 4 mg STAT ONE Administration Lab/Rad Data: Laboratory Result Diagrams 04/18/24 16:35 04/18/24 16:35 Laboratory Results 04/18/24 04/18/24 04/18/24 Range/Units 20:29 18:52 16:35 WBC (4.23-9.07) x10^3/uL RBC (4.63-6.08) x10^6/uL Hgb (13.7-17.5) g/dL Hct (40.1-51.0) % MCV (79.0-92.2) fL MCH (25.7-32.2) pg MCHC (32.3-36.5) g/dL RDW (11.6-14.4) % Plt Count (163-337) x10^3/uL MPV (9.4-12.4) fL Gran % (34.0-67.9) % Immature Gran % (Auto) (0.001-0.429) % Nucleat RBC Rel Count (0.00-0.2) % Eos # (Auto) (0.04-0.54) x10^3/uL Immature Gran # (Auto) (0.001-0.031) x10^3u/L Absolute Lymphs (auto) (1.32-3.57) x10^3/uL Absolute Monos (auto) (0.30-0.82) x10^3/uL Absolute Nucleated RBC (0.00-0.012) x10^3u/L Lymphocytes % (21.8-53.1) % Monocytes % (5.3-12.2) % Eosinophils % (0.8-7.0) % Basophils % (0.2-1.2) % Absolute Granulocytes (1.78-5.38) x10^3/uL Basophils # (0.01-0.08) x10^3/uL Sodium (135-145) mmol/L Potassium (3.5-5.1) mmol/L Chloride (98-107) mmol/L Carbon Dioxide (22-30) mmol/L Anion Gap (5-15) MEQ/L BUN (9-20) mg/dL Creatinine (0.66-1.25) mg/dL Estimated GFR ML/MIN Glucose (74-106) mg/dL POC Glucometer 141 H (74 to 106) mg/dL Calcium (8.4-10.2) mg/dL Total Bilirubin (0.2-1.3) mg/dL AST (17-59) U/L ALT (0-50) U/L Alkaline Phosphatase (38-126) U/L Troponin I 0.070 H* (0.000-0.033) ng/mL NT-Pro-B Natriuret Pep 44014 (<300) pg/mL Serum Total Protein (6.3-8.2) g/dL Albumin (3.5-5.0) g/dL 04/18/24 04/18/24 04/18/24 Range/Units 16:35 16:35 16:35 WBC 4.3 (4.23-9.07) x10^3/uL RBC 3.58 L (4.63-6.08) x10^6/uL Hgb 9.9 L (13.7-17.5) g/dL Hct 29.9 L (40.1-51.0) % MCV 83.5 (79.0-92.2) fL MCH 27.7 (25.7-32.2) pg MCHC 33.1 (32.3-36.5) g/dL RDW 14.9 H (11.6-14.4) % Plt Count 212 (163-337) x10^3/uL MPV 9.6 (9.4-12.4) fL Gran % 65.0 (34.0-67.9) % Immature Gran % (Auto) 0.2 (0.001-0.429) % Nucleat RBC Rel Count 0.0 (0.00-0.2) % Eos # (Auto) 0.07 (0.04-0.54) x10^3/uL Immature Gran # (Auto) 0.01 (0.001-0.031) x10^3u/L Absolute Lymphs (auto) 1.04 L (1.32-3.57) x10^3/uL Absolute Monos (auto) 0.32 (0.30-0.82) x10^3/uL Absolute Nucleated RBC 0.00 (0.00-0.012) x10^3u/L Lymphocytes % 24.5 (21.8-53.1) % Monocytes % 7.5 (5.3-12.2) % Eosinophils % 1.6 (0.8-7.0) % Basophils % 1.2 (0.2-1.2) % Absolute Granulocytes 2.76 (1.78-5.38) x10^3/uL Basophils # 0.05 (0.01-0.08) x10^3/uL Sodium 134 L (135-145) mmol/L Potassium 4.6 (3.5-5.1) mmol/L Chloride 105 (98-107) mmol/L Carbon Dioxide 22 (22-30) mmol/L Anion Gap 11.1 (5-15) MEQ/L BUN 20 (9-20) mg/dL Creatinine 1.28 H (0.66-1.25) mg/dL Estimated GFR 62.1 ML/MIN Glucose 343 H (74-106) mg/dL POC Glucometer (74 to 106) mg/dL Calcium 8.6 (8.4-10.2) mg/dL Total Bilirubin 0.50 (0.2-1.3) mg/dL AST 33 (17-59) U/L ALT 33 (0-50) U/L Alkaline Phosphatase 126 (38-126) U/L Troponin I 0.073 H* (0.000-0.033) ng/mL NT-Pro-B Natriuret Pep (<300) pg/mL Serum Total Protein 6.6 (6.3-8.2) g/dL Albumin 3.5 (3.5-5.0) g/dL 04/18/24 Range/Units 16:04 WBC (4.23-9.07) x10^3/uL RBC (4.63-6.08) x10^6/uL Hgb (13.7-17.5) g/dL Hct (40.1-51.0) % MCV (79.0-92.2) fL MCH (25.7-32.2) pg MCHC (32.3-36.5) g/dL RDW (11.6-14.4) % Plt Count (163-337) x10^3/uL MPV (9.4-12.4) fL Gran % (34.0-67.9) % Immature Gran % (Auto) (0.001-0.429) % Nucleat RBC Rel Count (0.00-0.2) % Eos # (Auto) (0.04-0.54) x10^3/uL Immature Gran # (Auto) (0.001-0.031) x10^3u/L Absolute Lymphs (auto) (1.32-3.57) x10^3/uL Absolute Monos (auto) (0.30-0.82) x10^3/uL Absolute Nucleated RBC (0.00-0.012) x10^3u/L Lymphocytes % (21.8-53.1) % Monocytes % (5.3-12.2) % Eosinophils % (0.8-7.0) % Basophils % (0.2-1.2) % Absolute Granulocytes (1.78-5.38) x10^3/uL Basophils # (0.01-0.08) x10^3/uL Sodium (135-145) mmol/L Potassium (3.5-5.1) mmol/L Chloride (98-107) mmol/L Carbon Dioxide (22-30) mmol/L Anion Gap (5-15) MEQ/L BUN (9-20) mg/dL Creatinine (0.66-1.25) mg/dL Estimated GFR ML/MIN Glucose (74-106) mg/dL POC Glucometer 331 H (74 to 106) mg/dL Calcium (8.4-10.2) mg/dL Total Bilirubin (0.2-1.3) mg/dL AST (17-59) U/L ALT (0-50) U/L Alkaline Phosphatase (38-126) U/L Troponin I (0.000-0.033) ng/mL NT-Pro-B Natriuret Pep (<300) pg/mL Serum Total Protein (6.3-8.2) g/dL Albumin (3.5-5.0) g/dL - Progress Progress: unchanged, re-examined Progress Note: 04/18/24 17:58 63-year-old with multiple medical problems including atrial fibrillation with lucius dave on Eliquis, congestive heart failure, poorly controlled diabetes mellitus, multiple amputations in the hand/fingers is evaluated in the ER for right eye visual changes and floaters and streaking sensations. I have done bedside right eye ultrasound which is negative for retinal detachment/vitreous tear. Globe seems intact. Patient is made stroke activated and prompt CT head is obtained without contrast which showed right limbic subacute stroke. Patient denies any other focal neurosymptoms. EKG is A-fib rate controlled with no ST elevation. Patient initial troponin 0.07 which review of record shows he always have a chronic troponin leak and today's in fact the lowest since he has been here multiple times in the past. Has BNP in 10,000, I believe it is secondary to CHF. Patient has normal white count, chemistries otherwise fairly unremarkable except for some chronic kidney disease which is stable around baseline. Prompt neurology consult is obtained and Dr. Hernandez has seen patient, recommended 325 aspirin, MRI and MRI and further workup for stroke. Patient is not a candidate for any kind of stroke related intervention immediately because of subacute nature of the stroke and him being on Eliquis. No MRI services are available over the weekend at [facility], patient is allergic to contrast dye and cannot have CT is done. I have discussed with Dr. Well[facility], reviewed history, workup and agreed with transfer. Plan discussed with patient who understand and agrees with it. Discussed with Dr.: Other (Dr. Hernandez [facility] neurology, [facility] Will see patient in: hospital (observation) Counseled pt/family regarding: lab results, diagnosis, rad results Medical Desision Making - Discussion of managment Care discussed with:: specialist ([facility] neurology Dr. Hernandez and Dr. [facility]) Reviewed:: Test results Agreed on:: Treatment plan, place in obs Will see patient: in hospital - Diagnostic Testing Diagnostic test were ordered, analyzed, and reviewed by me: Yes Radiological Interpretation: Reviewed by me, Teleradiologist Report - Risk of complications The pt has a mod risk of morbidity or mortality based on: Need for prescription drug management The pt has a high risk of morbidity or mortality based on: Decision regarding hospitilization or escalation of hosp level of care - Departure Departure Disposition: Transfer Clinical Impression: Stroke, Chronic a-fib, Elevated troponin, CKD (chronic kidney disease), Hyperglycemia Condition: Stable Critical Care Time: No Referrals: ROGELIO CAVAZOS DO [Primary Care Provider] - Follow up/PCP as directed
[2024-04-18 20:34] VITALS: RESP 16
[2024-04-18 21:13] VITALS: BP 147/79; PULSE 75
[2024-04-23 14:14] VITALS: O2SAT 92
== END 2024-04-18 21:20 | disposition short-term general hospital (02) ==
LOC: ED 15:53
DX: I63.9 Cerebral infarction, unspecified (principal); I48.20 Chronic atrial fibrillation, unspecified; R77.8 Other specified abnormalities of plasma proteins; I13.0 Hypertensive heart and chronic kidney disease with heart failure and stage 1 through stage 4 chronic kidney disease, or unspecified chronic kidney disease; E11.22 Type 2 diabetes mellitus with diabetic chronic kidney disease; N18.9 Chronic kidney disease, unspecified; E11.65 Type 2 diabetes mellitus with hyperglycemia; H53.8 Other visual disturbances; I50.9 Heart failure, unspecified; E78.5 Hyperlipidemia, unspecified; Z79.01 Long term (current) use of anticoagulants; Z79.4 Long term (current) use of insulin; Z79.84 Long term (current) use of oral hypoglycemic drugs; Z79.899 Other long term (current) drug therapy; Z59.12 Inadequate housing utilities
CPT/HCPCS: 36000; 36415; 70450; 80053; 82947; 83880; 84484; 85025; 93005; 96374; 96375; 99285; J2270; J2405; A9270-GY

== ENCOUNTER 2024-05-07 10:31 | Observation (INO) | payer MEDICARE ==
[2024-05-07] MEDS ORDERED: DUONEB 0.5-3 MG/3 ml Neb IH ONE (11:26)
[2024-05-07] MEDS: DUONEB 0.5-3 MG/3 ml Neb IH ONE (11:37)
[2024-05-07 11:52] LABS: Absolute Neutrophil Ct (ANC) 3.16 x10^3/uL (1.78-5.38); BASOPHIL % 0.8 % (0.2-1.2); Basophil (Absolute #) 0.03 x10^3/uL (0.01-0.08); Eosinophil % 0.8 % (0.8-7.0); Eosinophil (Absolute #) 0.03 x10^3/uL (0.04-0.54); Hematocrit 33.4 % (40.1-51.0); Hemoglobin 10.8 g/dL (13.7-17.5); IMMATURE GRAN # 0.01 x10^3u/L (0.001-0.031); IMMATURE GRAN % 0.3 % (0.001-0.429); Lymphocyte (Absolute #) 0.56 x10^3/uL (1.32-3.57); Mean Cell Volume 86.5 fL (79.0-92.2); Mean Corpuscular Hgb Concent. 32.3 g/dL (32.3-36.5); Mean Platelet Volume 11.2 fL (9.4-12.4); Neutrophil % 79.1 % (34.0-67.9); Platelet Count 180 x10^3/uL (163-337); Red Blood Count 3.86 x10^6/uL (4.63-6.08); Red Cell Distribution Width 16.1 % (11.6-14.4)
--- NOTE | 2024-05-07 11:58 | XRAY ---
Indication: Short of breath. Comparison: February 08, 2024 Portable chest again demonstrates borderline enlarged heart with left pacemaker. New pulmonary edema and small bibasilar effusions right greater than left favoring cardiac decompensation/CHF. Superimposed pneumonia not completely excluded. Bony thorax intact.
[2024-05-07 12:08] LABS: ALBUMIN 3.5 g/dL (3.5-5.0); ANION GAP 12.3 MEQ/L (5-15); BILIRUBIN,TOTAL 0.7 mg/dL (0.2-1.3); Calcium 8.6 mg/dL (8.4-10.2); Creatinine 1 1.07 mg/dL (0.66-1.25); MAGNESIUM 1.6 mg/dL (1.6-2.3); Potassium 4.2 mmol/L (3.5-5.1); Total Protein 6.5 g/dL (6.3-8.2)
--- NOTE | 2024-05-07 12:13 | ERPHSYRPT ---
- History of Present Illness Time Seen by Provider: 05/07/24 11:12 Source: patient Exam Limitations: no limitations Patient Subjective Stated Complaint: SOB Triage Nursing Assessment: Patient brought back to ED per w/c and transferred self to bed. Patient A+O X3. Patient's skin pink, warm and dry. Patient complains of increased SOB for the past 3 days when lying down. Patient denies pain or discomfort. Lungs clear a/p oneal. Patient states he is a non productive cough. Physician History: 63-year-old male with multiple medical problems including hypertension, hyperlipidemia, diabetes mellitus, atrial fibrillation with a pacemaker implant, on Eliquis, congestive heart failure presented in the ER with 3 days history of increasing shortness of breath despite taking his routine medications. Patient reports shortness of breath gets worse with lying and partial relief with sitting up. Also worsening with exertion. Reports diffuse chest pain across. Has minimal nonproductive cough. Has swelling of lower extremities chronically which is not worse than usual. No fever or chills reported. Allergies/Adverse Reactions: diphenhydramine [From Benadryl] Allergy (Verified 05/07/24 10:59) Difficulty Breathing Iodinated Contrast Media Allergy (Verified 05/07/24 10:59) Difficulty Breathing Home Medications: Duloxetine HCl [Cymbalta] 60 mg PO BID 07/28/23 [History] Insulin Glargine [Lantus Insulin] 50 unit SQ DAILY 07/28/23 [History] Ropinirole 2Mg [Requip 2Mg Tab] 2 mg PO HS 07/28/23 [History] Potassium Chloride 20 meq PO DAILY 10/16/23 [History] Empagliflozin [Jardiance] 25 mg PO DAILY 01/29/24 [History] Insulin Lispro [Humalog] 0 unit SQ ACHS 05/07/24 [History] Hx Tetanus, Diphtheria Vaccination/Date Given: Yes Hx Influenza Vaccination/Date Given: Yes Hx Pneumococcal Vaccination/Date Given: Yes Immunizations Up to Date: No Travel Risk - International Travel Have you traveled outside of the country in past 3 weeks: No - Emerging Infectious Disease Are you exhibiting symptoms associated with any current EIDs: No Symptoms: Shortness of Breath - Review of Systems Constitutional: Fatigue Eyes: No Symptoms Ears, Nose, & Throat: No Symptoms Respiratory: Cough, Dyspnea, Dyspnea on Exertion (TERESA) Cardiac: Chest Pain, Edema Abdominal/Gastrointestinal: No Symptoms Genitourinary Symptoms: No Symptoms Musculoskeletal: Arthralgias Skin: No Symptoms Neurological: No Symptoms Endocrine: No Symptoms Hematologic/Lymphatic: No Symptoms Immunological/Allergic: No Symptoms - Past Medical History Pertinent Past Medical History: Yes Neurological History: Peripheral Neuropathy ENT History: Cataracts Cardiac History: Arrhythmia, Congestive Heart Failure, High Cholesterol, Hypertension Respiratory History: Bronchitis, CHF, COPD, Sleep Apnea Endocrine Medical History: Diabetes Type II Musculoskeletal History: Arthritis, Osteoarthritis, Other GI Medical History: GERD, Gallbladder Disease History: Renal Disease Psycho-Social History: Anxiety, Depression Male Reproductive Disorders: No Pertinent History Other Medical History: a.fib, restless leg, bulging discs cervical spine, carpal tunnel - Past Surgical History Past Surgical History: Yes Neuro Surgical History: No Pertinent History Cardiac: Pacemaker Respiratory: No Pertinent History Gastrointestinal: Cholecystectomy Genitourinary: No Pertinent History Musculoskeletal: Amputation Male Surgical History: No Pertinent History Other Surgical History: cardiac ablation, 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 Significant Family History: no pertinent family hx (No family history pertaining to this admission reported) - Social History Smoking Status: Never smoker Exposure to second hand smoke: Yes Drug Use: none Patient Lives Alone: No - Social Determinants of Health Will the patient participate in the screening: Yes Do you worry about a steady place to live?: No Do you have any problems with any of the following?: No known problems In the past 12 months,have you had to go without utilities?: No Transportation Issues: No Has anyone in your support network made you feel unsafe?: No Have you or anyone in your house had to go without enough: No - Nursing Vital Signs Nursing Vital Signs: Initial Vital Signs Temperature 97.7 F 05/07/24 11:00 Pulse Rate 89 05/07/24 11:00 Respiratory Rate 20 05/07/24 11:00 Blood Pressure 169/104 05/07/24 11:00 O2 Sat by Pulse Oximetry 96 05/07/24 11:00 Pain Scale Pain Intensity 0 - Physical Exam General Appearance: no apparent distress, alert Eye Exam: PERRL/EOMI Ears, Nose, Throat Exam: hearing grossly normal, normal ENT inspection, normal pharynx Neck Exam: normal inspection, non-tender, supple, full range of motion Respiratory Exam: crackles/rales, wheezing Cardiovascular/Chest Exam: normal heart sounds, regular rate/rhythm, edema (1+ pitting edema bilaterally) Abdominal/Gastrointestinal Exam: soft, normal bowel sounds, No tenderness Extremity Exam: non-tender, normal range of motion Neurologic Exam: alert, oriented x 3, cooperative Skin Exam: normal color SpO2 Interpretation: normal SpO2: 97 O2 Delivery: Room Air - Course EKG Interpreted by Me: RATE (77 ventricular paced rhythm), Right Conway Deviation, prolonged QT interval, Non-specific ST Changes Ordered Tests: Active Orders 24 hr Category Date Time Status Bedrest ROUTINE Activity 05/07/24 14:29 Active Up With Assistance ROUTINE Activity 05/07/24 14:29 Active Call Admit Doctor for Orders ON ADMISSION Care 05/07/24 14:29 Active Supervisor Prepress STAT Care 05/07/24 11:22 Completed Code Status Order ROUTINE Care 05/07/24 14:29 Active EKG-ER Only STAT Care 05/07/24 11:21 Completed Fall Protocol Q1H Care 05/07/24 14:29 Active IV Insertion STAT Care 05/07/24 11:21 Completed POCT Glucose Check ACHS Care 05/07/24 14:29 Active POCT Glucose Check STAT Care 05/07/24 13:[address] in Observation ROUTINE Care 05/07/24 14:29 Active Telemetry q6h Care 05/07/24 14:29 Active CHEST 1 VIEW (PORTABLE) Stat Exams 05/07/24 11:22 Completed CBC W DIFF Stat Lab 05/07/24 11:34 Completed CMP AM.LAB Lab 05/08/24 04:00 Ordered CMP Stat Lab 05/07/24 11:34 Completed Lactic Acid Stat Lab 05/07/24 11:47 Completed MAGNESIUM Stat Lab 05/07/24 11:34 Completed NT PRO BNPII Stat Lab 05/07/24 11:34 Completed POCT GLUCOSE Stat Lab 05/07/24 13:23 Completed TROPONIN Q4H Lab 05/07/24 11:34 Completed TROPONIN Q4H Lab 05/07/24 15:10 Completed TROPONIN Q4H Lab 05/07/24 19:35 Completed Oxygen Nasal Cannula 2 lpm RT 05/07/24 14:29 Active Pulse Oximetry CONTINUOUS RT 05/07/24 14:29 Active Respiratory Therapy Assessment DAILY RT 05/07/24 11:40 Active Respiratory Therapy Consult ONCE RT 05/07/24 14:29 Completed Transfer Order Routine Transfer 05/07/24 Completed Medication Summary Generic Name Dose Route Start Last Admin Trade Name Fletcher PRN Reason Stop Dose Admin Apixaban 5 mg 05/07/24 16:00 05/07/24 21:40 Apixaban 2.5 Mg Tablet PO 06/06/24 15:59 5 mg BID JUAN Administration Carvedilol 12.5 mg 05/07/24 16:00 05/07/24 21:39 Carvedilol 12.5 Mg Tablet PO 06/06/24 15:59 12.5 mg BID JUAN Administration Duloxetine HCl 60 mg 05/07/24 22:00 05/07/24 21:39 Duloxetine Hcl 30 Mg Cap PO 06/06/24 21:59 60 mg BID JUAN Administration Empagliflozin 25 mg 05/07/24 16:00 05/07/24 15:40 Empagliflozin 10 Mg Tablet PO 06/06/24 15:59 25 mg DAILY JUAN Administration Furosemide 40 mg 05/07/24 18:00 05/07/24 17:14 Furosemide 40 Mg/4 Ml Vial IV 06/06/24 17:59 40 mg BID DIURETIC JUAN Administration Gabapentin 100 mg 05/07/24 15:00 05/07/24 21:39 Gabapentin 100 Mg Capsule PO 06/06/24 14:59 100 mg TID JUAN Administration Insulin Glargine 20 unit 05/07/24 22:00 05/07/24 21:40 Insulin Glargine 1 Unit SQ 06/06/24 21:59 20 unit BID JUAN Administration Insulin Human Lispro 0 unit 05/07/24 14:41 05/07/24 21:46 Insulin Lispro 1 Unit SQ 06/06/24 14:40 6 unit UD PRN Administration HYPERGLYCEMIA Lisinopril 10 mg 05/07/24 16:00 05/07/24 15:40 Lisinopril 10 Mg Tablet PO 06/06/24 15:59 10 mg DAILY JUAN Administration Magnesium Oxide 400 mg 05/08/24 10:00 Magnesium Oxide 400 Mg Tablet PO 06/07/24 09:59 DAILY JUAN Pantoprazole Sodium 40 mg 05/07/24 15:57 Protonix (Pantoprazole) 40 Mg Tablet PO 06/06/24 15:56 QDP PRN INDIGESTION Potassium Chloride 20 meq 05/07/24 16:00 05/07/24 15:39 Potassium Chloride Tab 10 Meq Tab PO 06/06/24 15:59 20 meq DAILY JUAN Administration Ropinirole HCl 2 mg 05/07/24 22:00 05/07/24 21:39 Ropinirole Hcl 2 Mg Tablet PO 06/06/24 21:59 2 mg HS JUAN Administration Simvastatin 40 mg 05/07/24 22:00 05/07/24 21:39 Simvastatin 20 Mg Tablet PO 06/06/24 21:59 40 mg HS JUAN Administration Spironolactone 25 mg 05/07/24 16:00 05/07/24 15:40 Spironolactone 25 Mg Tablet PO 06/06/24 15:59 25 mg DAILY JUAN Administration Trazodone HCl 50 mg 05/07/24 14:37 Trazodone Hcl 50 Mg Tablet PO 06/06/24 14:36 HSPRN PRN INSOMNIA Discontinued Medications Generic Name Dose Route Start Last Admin Trade Name Freq PRN Reason Stop Dose Admin Albuterol/Ipratropium 3 ml 05/07/24 11:21 05/07/24 11:37 Ipratropium/Albuterol Sulfate 3 Ml Ampul.Neb IH 05/07/24 11:22 3 ml STAT ONE Administration Albuterol/Ipratropium Confirm 05/07/24 11:26 Ipratropium/Albuterol Sulfate 3 Ml Ampul.Neb Administered 05/07/24 11:27 Dose 3 ml IH .STK-MED ONE Furosemide 40 mg 05/07/24 12:58 05/07/24 13:21 Furosemide 40 Mg/4 Ml Vial IV 05/07/24 12:59 40 mg STAT ONE Administration Furosemide Confirm 05/07/24 13:18 Furosemide 40 Mg/4 Ml Vial Administered 05/07/24 13:19 Dose 40 mg .ROUTE .STK-MED ONE Furosemide 40 mg 05/07/24 14:45 05/07/24 15:29 Furosemide 40 Mg/4 Ml Vial IV 06/06/24 14:44 Not Given BID DIURETIC JUAN Insulin Human Regular 15 unit 05/07/24 12:42 05/07/24 12:54 Insulin Regular, Human 1 Unit IV 05/07/24 12:43 15 unit STAT ONE Administration Insulin Human Regular Confirm 05/07/24 12:51 Insulin Regular, Human 1 Unit Administered 05/07/24 12:52 Dose 15 unit .ROUTE .STK-MED ONE Lab/Rad Data: Laboratory Result Diagrams 05/07/24 11:34 05/07/24 11:34 Laboratory Results 05/07/24 05/07/24 05/07/24 Range/Units 13:23 11:47 11:34 WBC (4.23-9.07) x10^3/uL RBC (4.63-6.08) x10^6/uL Hgb (13.7-17.5) g/dL Hct (40.1-51.0) % MCV (79.0-92.2) fL MCH (25.7-32.2) pg MCHC (32.3-36.5) g/dL RDW (11.6-14.4) % Plt Count (163-337) x10^3/uL MPV (9.4-12.4) fL Gran % (34.0-67.9) % Immature Gran % (Auto) (0.001-0.429) % Nucleat RBC Rel Count (0.00-0.2) % Eos # (Auto) (0.04-0.54) x10^3/uL Immature Gran # (Auto) (0.001-0.031) x10^3u/L Absolute Lymphs (auto) (1.32-3.57) x10^3/uL Absolute Monos (auto) (0.30-0.82) x10^3/uL Absolute Nucleated RBC (0.00-0.012) x10^3u/L Lymphocytes % (21.8-53.1) % Monocytes % (5.3-12.2) % Eosinophils % (0.8-7.0) % Basophils % (0.2-1.2) % Absolute Granulocytes (1.78-5.38) x10^3/uL Basophils # (0.01-0.08) x10^3/uL Sodium (135-145) mmol/L Potassium (3.5-5.1) mmol/L Chloride (98-107) mmol/L Carbon Dioxide (22-30) mmol/L Anion Gap (5-15) MEQ/L BUN (9-20) mg/dL Creatinine (0.66-1.25) mg/dL Estimated GFR ML/MIN Glucose (74-106) mg/dL POC Glucometer 372 H (74 to 106) mg/dL Lactic Acid 1.4 (0.4-2.0) Calcium (8.4-10.2) mg/dL Magnesium (1.6-2.3) mg/dL Total Bilirubin (0.2-1.3) mg/dL AST (17-59) U/L ALT (0-50) U/L Alkaline Phosphatase (38-126) U/L Troponin I 0.110 H* (0.000-0.033) ng/mL NT-Pro-B Natriuret Pep 74791 (<300) pg/mL Serum Total Protein (6.3-8.2) g/dL Albumin (3.5-5.0) g/dL Slides for Path Review 05/07/24 05/07/24 Range/Units 11:34 11:34 WBC 4.0 L (4.23-9.07) x10^3/uL RBC 3.86 L (4.63-6.08) x10^6/uL Hgb 10.8 L (13.7-17.5) g/dL Hct 33.4 L (40.1-51.0) % MCV 86.5 (79.0-92.2) fL MCH 28.0 (25.7-32.2) pg MCHC 32.3 (32.3-36.5) g/dL RDW 16.1 H (11.6-14.4) % Plt Count 180 (163-337) x10^3/uL MPV 11.2 (9.4-12.4) fL Gran % 79.1 H (34.0-67.9) % Immature Gran % (Auto) 0.3 (0.001-0.429) % Nucleat RBC Rel Count 0.0 (0.00-0.2) % Eos # (Auto) 0.03 L (0.04-0.54) x10^3/uL Immature Gran # (Auto) 0.01 (0.001-0.031) x10^3u/L Absolute Lymphs (auto) 0.56 L (1.32-3.57) x10^3/uL Absolute Monos (auto) 0.20 L (0.30-0.82) x10^3/uL Absolute Nucleated RBC 0.00 (0.00-0.012) x10^3u/L Lymphocytes % 14.0 L (21.8-53.1) % Monocytes % 5.0 L (5.3-12.2) % Eosinophils % 0.8 (0.8-7.0) % Basophils % 0.8 (0.2-1.2) % Absolute Granulocytes 3.16 (1.78-5.38) x10^3/uL Basophils # 0.03 (0.01-0.08) x10^3/uL Sodium 132 L (135-145) mmol/L Potassium 4.2 (3.5-5.1) mmol/L Chloride 99 (98-107) mmol/L Carbon Dioxide 24 (22-30) mmol/L Anion Gap 12.3 (5-15) MEQ/L BUN 22 H (9-20) mg/dL Creatinine 1.07 (0.66-1.25) mg/dL Estimated GFR 77.0 ML/MIN Glucose 538 H* (74-106) mg/dL POC Glucometer (74 to 106) mg/dL Lactic Acid (0.4-2.0) Calcium 8.6 (8.4-10.2) mg/dL Magnesium 1.6 (1.6-2.3) mg/dL Total Bilirubin 0.70 (0.2-1.3) mg/dL AST 19 (17-59) U/L ALT 31 (0-50) U/L Alkaline Phosphatase 162 H (38-126) U/L Troponin I (0.000-0.033) ng/mL NT-Pro-B Natriuret Pep (<300) pg/mL Serum Total Protein 6.5 (6.3-8.2) g/dL Albumin 3.5 (3.5-5.0) g/dL Slides for Path Review YES - Progress Progress: re-examined Air Movement: fair Progress Note: 05/07/24 13:48 63-year-old with multiple medical problems including hypertension, diabetes mellitus, congestive heart failure, atrial fibrillation on Eliquis, pacemaker placement, noncompliance is evaluated for increasing shortness of breath specially orthopnea with progressive worsening. Patient is not in much distress but has bilateral rales, given neb treatment and Lasix. Patient workup showed paced rhythm EKG with initial troponin of 0.1, review of record showed patient has chronic troponin leak. Has a BNP of 26,000 which is increased from 10,000 and I believe patient is having CHF exacerbation. Normal white count, fairly unremarkable chemistries otherwise but glucose in 500s with a normal bicarb. Patient is not in DKA or HHS but has hyperglycemia, given 15 units IV insulin. Chest x-ray showed cardiomegaly with pulmonary edema/decompensated CHF picture. I believe patient would benefit with IV diuretics. Discussed with Dr. Krause, reviewed history, workup and agreed with admission. I have shared the results of workup with patient and recommended admission which she understands and agrees. Blood Culture(s) Obtained: Yes Antibiotics given: Yes Discussed with Dr.: Other (Dr. Krause hospitalist) Counseled pt/family regarding: lab results, diagnosis, rad results Medical Desision Making - Discussion of managment Care discussed with:: hospitalist () Reviewed:: Test results Agreed on:: Treatment plan, place in obs Will see patient: in hospital - Diagnostic Testing Diagnostic test were ordered, analyzed, and reviewed by me: Yes Radiological Interpretation: Reviewed by me - Risk of complications The pt has a mod risk of morbidity or mortality based on: Need for prescription drug management The pt has a high risk of morbidity or mortality based on: Decision regarding hospitilization or escalation of hosp level of care - Departure Departure Disposition: Observation Clinical Impression: Acute exacerbation of CHF (congestive heart failure), Hyperglycemia, Elevated troponin Condition: Stable Critical Care Time: No
[2024-05-07 12:45] LABS: TROPONIN 0.11 ng/mL (0.000-0.033)
[2024-05-07] MEDS ORDERED: HUMULIN R ONE (12:51)
[2024-05-07] MEDS: HUMULIN R IV ONE (12:54)
[2024-05-07] MEDS ORDERED: Lasix 40 MG/4 ML ONE (13:18)
[2024-05-07] MEDS: Lasix 40 MG/4 ML IV ONE (13:21)
[2024-05-07 14:31] LABS: Slide Review 1 YES
[2024-05-07] MEDS ORDERED: NON-FORMULARY ITEM (Omeprazole [Omeprazole] 40 MG Capsule.Dr) PO PRN (14:37)
--- NOTE | 2024-05-07 14:42 | PCM.HP ---
History of Present Illness - Chief Complaint Chief Complaint: CHF exacerbation Date: 05/07/24 History of Present Illness: is a 63 year old male with PMHX of multiple medical problems including hypertension, hyperlipidemia, diabetes mellitus, atrial fibrillation with a pacemaker implant, on Eliquis, and congestive heart failure. He presented in the ER with 3 days history of increasing shortness of breath despite taking his routine medications. Patient reports shortness of breath gets worse with lying and partial relief with sitting up. Also worsening with exertion. Reported diffuse chest pain across chest in ER. Since admission has resolved. Has mini mal nonproductive cough. Has swelling of lower extremities chronically which is not worse than usual. No fever or chills reported. He has been admitted several times for CHF and most recently on 02/23-02/25. He was set up with pallative care at last visit as he has a hx of non-compliance and does not f/u with cardiology and nephrology. He states he has been doing everything and taking all his meds as prescribed. IV lasix gave in ER and will continue BID dosing. Trop x1 elevated 2:2 CHF. Like most visits in the past Trop is elevated. Will continue to trend. He denies CP, abd. pain, N/V/D. - Review of Systems Constitutional: No Fever, No Chills Eyes: No Symptoms Ears, Nose, & Throat: No Symptoms Respiratory: Short Of Breath, No Cough Cardiac: Chest Pain, Edema, No Syncope Abdominal/Gastrointestinal: No Abdominal Pain, No Nausea, No Vomiting, No Diarrhea Genitourinary Symptoms: No Dysuria Musculoskeletal: No Back Pain, No Neck Pain Skin: No Rash Neurological: No Dizziness, No Focal Weakness, No Sensory Changes Psychological: No Symptoms Endocrine: No Symptoms Hematologic/Lymphatic: No Symptoms Immunological/Allergic: No Symptoms Medications & Allergies Home Medications: Home Medication List Duloxetine HCl [Cymbalta] 60 mg PO BID 07/28/23 [History Confirmed 05/07/24] Insulin Glargine [Lantus Insulin] 50 unit SQ DAILY 07/28/23 [History Confirmed 05/07/24] Ropinirole 2Mg [Requip 2Mg Tab] 2 mg PO HS 07/28/23 [History Confirmed 05/07/24] Apixaban [Eliquis 2.5 mg Tablet] 5 mg PO BID 30 Days #60 tablet 07/30/23 [Rx Confirmed 05/07/24] Spironolactone 25 mg [Aldactone 25 MG] 25 mg PO DAILY 30 Days #30 tablet 07/30/23 [Rx Confirmed 05/07/24] Furosemide 40 mg [Lasix 40 MG] 40 mg PO DAILY 30 Days #30 tablet 07/31/23 [Rx Confirmed 05/07/24] Potassium Chloride 20 meq PO DAILY 10/16/23 [History Confirmed 05/07/24] Empagliflozin [Jardiance] 25 mg PO DAILY 01/29/24 [History Confirmed 05/07/24] Atorvastatin Calcium [Lipitor 40Mg] 40 mg PO HS 30 Days #30 tablet 02/26/24 [Rx Confirmed 05/07/24] Carvedilol 12.5 mg [Coreg 12.5 mg] 12.5 mg PO BID 30 Days #60 tablet 02/26/24 [Rx Confirmed 05/07/24] Gabapentin [Neurontin ] 100 mg PO TID 30 Days #90 cap 02/26/24 [Rx Confirmed 05/07/24] Insulin Lispro [Humalog] 3 unit SQ TIDWM 30 Days #100 units 02/26/24 [Rx Confirmed 05/07/24] Lisinopril 10 mg [Zestril 10 MG] 10 mg PO DAILY 30 Days #30 tablet 02/26/24 [Rx Confirmed 05/07/24] Omeprazole 40 mg PO DAILY PRN 30 Days #30 cap 02/26/24 [Rx Confirmed 05/07/24] Trazodone HCl 50 mg [Desyrel 50 mg] 50 mg PO HS PRN 30 Days #30 tablet 02/26/24 [Rx Confirmed 05/07/24] Insulin Lispro [Humalog] 0 unit SQ ACHS 05/07/24 [History Confirmed 05/07/24] Allergies/Adverse Reactions: Allergies Allergy/AdvReac Type Severity Reaction Status Date / Time diphenhydramine Allergy Difficulty Verified 05/07/24 10:59 [From Benadryl] Breathing Iodinated Contrast Media Allergy Difficulty Verified 05/07/24 10:59 Breathing - Past Medical History Past Medical History: Yes Neurological History: Peripheral Neuropathy ENT History: Cataracts Cardiac History: Arrhythmia, Congestive Heart Failure, High Cholesterol, Hypertension Respiratory History: Bronchitis, CHF, COPD, Sleep Apnea Endocrine Medical History: Diabetes Type II Musculoskelatal History: Arthritis, Osteoarthritis, Other GI Medical History: GERD, Gallbladder Disease History: Renal Disease Pyscho-Social History: Anxiety, Depression Male Reproductive Disorders: No Pertinent History Comment: a.fib, restless leg, bulging discs cervical spine, carpal tunnel - Past Surgical History Past Surgical History: Yes Neuro Surgical History: No Pertinent History Cardiac History: Pacemaker Respiratory Surgery: No Pertinent History GI Surgical History: Cholecystectomy Genitourinary Surgical Hx: No Pertinent History Musculskeletal Surgical Hx: Amputation Male Surgical History: No Pertinent History Other Surgical History: cardiac ablation, 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 Significant Family History: no pertinent family hx (No family history pertaining to this admission reported) - Social History Smoking Status: Never smoker Exposure to second hand smoke: Yes Alcohol: None Drug Use: none - Social Determinants of Health Will the patient participate in the screening: Yes Do you worry about a steady place to live?: No Do you have any problems with any of the following?: No known problems In the past 12 months,have you had to go without utilities?: No Have you or anyone in your house had to go without enough: No Transportation Issues: No Has anyone in your support network made you feel unsafe?: No Does the patient want assistance with any of the above?: No Comment: pt has no running water, would like assistance - Physical Exam Vital Signs: Vital Signs - 24 hr Temp Pulse Resp BP BP Pulse Ox 05/07/24 14:00 82 20 161/101 99 05/07/24 13:48 97 05/07/24 13:30 81 13 156/94 99 05/07/24 13:00 85 17 177/106 98 05/07/24 12:30 87 26 H 174/106 100 05/07/24 12:00 80 28 H 166/102 99 05/07/24 11:40 76 16 97 05/07/24 11:00 97.7 F 80 10 L 169/104 169/104 100 General Appearance: no apparent distress, alert Neurologic Exam: alert, oriented x 3, cooperative, normal mood/affect, nml cerebellar function, nml station & gait, sensation nml, No motor deficits Eye Exam: PERRL/EOMI, eyes nml inspection Ears, Nose, Throat Exam: normal ENT inspection, TMs normal, pharynx normal, moist mucous membranes Neck Exam: normal inspection, non-tender, supple, full range of motion Respiratory Exam: normal breath sounds, lungs clear, No respiratory distress Cardiovascular Exam: regular rate/rhythm, normal heart sounds, normal peripheral pulses, edema (BLLE) Gastrointestinal/Abdomen Exam: soft, normal bowel sounds, No tenderness, No mass Back Exam: normal inspection, normal range of motion, No CVA tenderness, No vertebral tenderness Extremity Exam: normal inspection, normal range of motion, pelvis stable Skin Exam: normal color, warm, dry, No rash Lymphatic Exam: No adenopathy Results - Labs Lab/Micro Results: Lab Results-Last 24 Hours 05/07/24 05/07/24 05/07/24 Range/Units 11:34 11:34 11:34 WBC 4.0 L (4.23-9.07) x10^3/uL RBC 3.86 L (4.63-6.08) x10^6/uL Hgb 10.8 L (13.7-17.5) g/dL Hct 33.4 L (40.1-51.0) % MCV 86.5 (79.0-92.2) fL MCH 28.0 (25.7-32.2) pg MCHC 32.3 (32.3-36.5) g/dL RDW 16.1 H (11.6-14.4) % Plt Count 180 (163-337) x10^3/uL MPV 11.2 (9.4-12.4) fL Gran % 79.1 H (34.0-67.9) % Immature Gran % (Auto) 0.3 (0.001-0.429) % Nucleat RBC Rel Count 0.0 (0.00-0.2) % Eos # (Auto) 0.03 L (0.04-0.54) x10^3/uL Immature Gran # (Auto) 0.01 (0.001-0.031) x10^3u/L Absolute Lymphs (auto) 0.56 L (1.32-3.57) x10^3/uL Absolute Monos (auto) 0.20 L (0.30-0.82) x10^3/uL Absolute Nucleated RBC 0.00 (0.00-0.012) x10^3u/L Lymphocytes % 14.0 L (21.8-53.1) % Monocytes % 5.0 L (5.3-12.2) % Eosinophils % 0.8 (0.8-7.0) % Basophils % 0.8 (0.2-1.2) % Absolute Granulocytes 3.16 (1.78-5.38) x10^3/uL Basophils # 0.03 (0.01-0.08) x10^3/uL Sodium 132 L (135-145) mmol/L Potassium 4.2 (3.5-5.1) mmol/L Chloride 99 (98-107) mmol/L Carbon Dioxide 24 (22-30) mmol/L Anion Gap 12.3 (5-15) MEQ/L BUN 22 H (9-20) mg/dL Creatinine 1.07 (0.66-1.25) mg/dL Estimated GFR 77.0 ML/MIN Glucose 538 H* (74-106) mg/dL POC Glucometer (74 to 106) mg/dL Lactic Acid (0.4-2.0) Calcium 8.6 (8.4-10.2) mg/dL Magnesium 1.6 (1.6-2.3) mg/dL Total Bilirubin 0.70 (0.2-1.3) mg/dL AST 19 (17-59) U/L ALT 31 (0-50) U/L Alkaline Phosphatase 162 H (38-126) U/L Troponin I 0.110 H* (0.000-0.033) ng/mL NT-Pro-B Natriuret Pep 63711 (<300) pg/mL Serum Total Protein 6.5 (6.3-8.2) g/dL Albumin 3.5 (3.5-5.0) g/dL Slides for Path Review YES 05/07/24 05/07/24 Range/Units 11:47 13:23 WBC (4.23-9.07) x10^3/uL RBC (4.63-6.08) x10^6/uL Hgb (13.7-17.5) g/dL Hct (40.1-51.0) % MCV (79.0-92.2) fL MCH (25.7-32.2) pg MCHC (32.3-36.5) g/dL RDW (11.6-14.4) % Plt Count (163-337) x10^3/uL MPV (9.4-12.4) fL Gran % (34.0-67.9) % Immature Gran % (Auto) (0.001-0.429) % Nucleat RBC Rel Count (0.00-0.2) % Eos # (Auto) (0.04-0.54) x10^3/uL Immature Gran # (Auto) (0.001-0.031) x10^3u/L Absolute Lymphs (auto) (1.32-3.57) x10^3/uL Absolute Monos (auto) (0.30-0.82) x10^3/uL Absolute Nucleated RBC (0.00-0.012) x10^3u/L Lymphocytes % (21.8-53.1) % Monocytes % (5.3-12.2) % Eosinophils % (0.8-7.0) % Basophils % (0.2-1.2) % Absolute Granulocytes (1.78-5.38) x10^3/uL Basophils # (0.01-0.08) x10^3/uL Sodium (135-145) mmol/L Potassium (3.5-5.1) mmol/L Chloride (98-107) mmol/L Carbon Dioxide (22-30) mmol/L Anion Gap (5-15) MEQ/L BUN (9-20) mg/dL Creatinine (0.66-1.25) mg/dL Estimated GFR ML/MIN Glucose (74-106) mg/dL POC Glucometer 372 H (74 to 106) mg/dL Lactic Acid 1.4 (0.4-2.0) Calcium (8.4-10.2) mg/dL Magnesium (1.6-2.3) mg/dL Total Bilirubin (0.2-1.3) mg/dL AST (17-59) U/L ALT (0-50) U/L Alkaline Phosphatase (38-126) U/L Troponin I (0.000-0.033) ng/mL NT-Pro-B Natriuret Pep (<300) pg/mL Serum Total Protein (6.3-8.2) g/dL Albumin (3.5-5.0) g/dL Slides for Path Review Accuchecks Date 05/07/24 Time 13:23 - Radiology Impressions Radiology Exams & Impressions: Radiology Procedures Category Date Time Status CHEST 1 VIEW (PORTABLE) Stat Exams 05/07/24 11:22 Completed - Other Procedures and Tests Respiratory Therapy 05/07/24 14:29 Oxygen Nasal Cannula 2 lpm Respiratory Therapy Consult ONCE Assessment/Plan (1) Acute exacerbation of CHF (congestive heart failure) Current Visit: Yes Status: Acute Qualifiers: Assessment & Plan: - Lasix BID - TEDS - tele - low sodium/ carb consistant diet - Continue coreg and jardiance - Cardiology consult - Chest XR Portable chest again demonstrates borderline enlarged heart with left pacemaker. New pulmonary edema and small bibasilar effusions right greater than left favoring cardiac decompensation/CHF. Superimposed pneumonia not completely excluded. Bony thorax intact. - Echo 07/29/23 EF at 33% - Echo 02/09/24: will have to obtain records. Code(s): I50.9 - HEART FAILURE, UNSPECIFIED (2) Elevated troponin Current Visit: Yes Status: Acute Assessment & Plan: - Trop x1 0.110- trend - tele - cardiology consult - EKG Code(s): R79.89 - OTHER SPECIFIED ABNORMAL FINDINGS OF BLOOD CHEMISTRY (3) Hyperglycemia Current Visit: Yes Status: Acute Assessment & Plan: - Insulin gave in the ER - Accuchecks ac/hs - High dose s/s Code(s): R73.9 - HYPERGLYCEMIA, UNSPECIFIED (4) Afib Current Visit: No Status: Chronic Assessment & Plan: - chronic - continue Eliquis - tele VTE: Eliquis PPI: Protonix D/C plan: 1-2 days Next of KIN: Charito Santos Code status: Full Code(s): I48.91 - UNSPECIFIED ATRIAL FIBRILLATION Telemedicine Encounter - Telemedicine Encounter Telemedicine Encounter: "The entirety of this encounter was performed via Telemedicine" This visit was performed using real-time audio and video connection between my location and thepatients locationwith the assistance of a surrogateat the patients location. Written or verbal consent was obtained from the patient/guardian to perform this visit usingsynchronoustelemedicine technology. Any patient questions regarding the telemedicine interaction were answered.
[2024-05-07] MEDS: Lasix 40 MG/4 ML IV SCH ×2 (15:29→17:14)
[2024-05-07] MEDS: Klor Con PO SCH (15:39)
[2024-05-07] MEDS: Zestril 10 MG PO SCH (15:40)
[2024-05-07] MEDS: Aldactone 25 MG PO SCH (15:40)
[2024-05-07] MEDS: Neurontin PO SCH (15:40)
[2024-05-07] MEDS: ELIQUIS 2.5 MG TABLET PO SCH (15:40)
[2024-05-07] MEDS: COREG 12.5 MG PO SCH (15:40)
[2024-05-07] MEDS: JARDIANCE PO SCH (15:40)
[2024-05-07] MEDS ORDERED: Protonix 40MG Tablet PO PRN (15:57)
[2024-05-07] MEDS: HUMALOG SQ PRN (17:14)
--- NOTE | 2024-05-07 18:39 | PCM.CONS ---
History of Present Illness - Date of Consult Date of Encounter: 05/07/24 Consulting Polisher Implant: ANTOINE DENNIS MD Requesting Provider: Attending Provider: JOSEPH RACHEL MD Primary Care Provider: PCP: ROGELIO CAVAZOS DO - Consult Narrative Reason for Consult: CHF exacerbation HPI: 63 yo M w/ PMHx of systolic heart failure, HTN, HL, DM, COPD, afib, s/p PPM who presents for evaluation of progressive shortness of breath, TERESA, and orthopnea over the past 3 days. He's had multiple admissions over the past year for CHF exacerbation and he is presenting with similar symptoms as to his prior episodes. Patient reports in the past he has had issues with taking his medications as prescribed but recently he's doing a better job of remembering to take his medications. He has, however, apparently been eating a high salt diet with lots of fast food and cold meats. He has a take off man but reports missing his last appointment with him due to being hospitalized. It doesn't sound like he has ever had LHC before which would be unusual in someone with a known cardiomyopathy. Etiology of his cardiomyopathy remains unknown. He denies any cocaine use. He reports he has used meth perhaps twice in his life but nothing recently. Workup here shows pulmonary edema on CXR, BNP of 26,600, minimal trop elevation. eKG shows v-paced rhythm. cc:: The requesting physician will be sent a copy of the consult. Review of Systems - Review of Systems All systems: as per HPI - Past Medical History Past Medical History: Yes Neurological History: Peripheral Neuropathy ENT History: Cataracts Cardiac History: Arrhythmia, Congestive Heart Failure, High Cholesterol, Hypertension Respiratory History: Bronchitis, CHF, COPD, Sleep Apnea Endocrine Medical History: Diabetes Type II Musculoskelatal History: Arthritis, Osteoarthritis, Other GI Medical History: GERD, Gallbladder Disease History: Renal Disease Pyscho-Social History: Anxiety, Depression Male Reproductive Disorders: No Pertinent History Comment: a.fib, restless leg, bulging discs cervical spine, carpal tunnel - Past Surgical History Past Surgical History: Yes Neuro Surgical History: No Pertinent History Cardiac History: Pacemaker Respiratory Surgery: No Pertinent History GI Surgical History: Cholecystectomy Genitourinary Surgical Hx: No Pertinent History Musculskeletal Surgical Hx: Amputation Male Surgical History: No Pertinent History Other Surgical History: cardiac ablation, 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 Significant Family History: no pertinent family hx (No family history pertaining to this admission reported) - Social History Smoking Status: Never smoker Exposure to second hand smoke: Yes Alcohol: None Drug Use: none - Social Determinants of Health Will the patient participate in the screening: Yes Do you worry about a steady place to live?: No Do you have any problems with any of the following?: No known problems In the past 12 months,have you had to go without utilities?: No Have you or anyone in your house had to go without enough: No Transportation Issues: No Has anyone in your support network made you feel unsafe?: No Does the patient want assistance with any of the above?: No Comment: pt has no running water, would like assistance Medications & Allergies Home Medications: Home Medication List Duloxetine HCl [Cymbalta] 60 mg PO BID 07/28/23 [History Confirmed 05/07/24] Insulin Glargine [Lantus Insulin] 50 unit SQ DAILY 07/28/23 [History Confirmed 05/07/24] Ropinirole 2Mg [Requip 2Mg Tab] 2 mg PO HS 07/28/23 [History Confirmed 05/07/24] Apixaban [Eliquis 2.5 mg Tablet] 5 mg PO BID 30 Days #60 tablet 07/30/23 [Rx Confirmed 05/07/24] Spironolactone 25 mg [Aldactone 25 MG] 25 mg PO DAILY 30 Days #30 tablet 07/30/23 [Rx Confirmed 05/07/24] Furosemide 40 mg [Lasix 40 MG] 40 mg PO DAILY 30 Days #30 tablet 07/31/23 [Rx Confirmed 05/07/24] Potassium Chloride 20 meq PO DAILY 10/16/23 [History Confirmed 05/07/24] Empagliflozin [Jardiance] 25 mg PO DAILY 01/29/24 [History Confirmed 05/07/24] Atorvastatin Calcium [Lipitor 40Mg] 40 mg PO HS 30 Days #30 tablet 02/26/24 [Rx Confirmed 05/07/24] Carvedilol 12.5 mg [Coreg 12.5 mg] 12.5 mg PO BID 30 Days #60 tablet 02/26/24 [Rx Confirmed 05/07/24] Gabapentin [Neurontin ] 100 mg PO TID 30 Days #90 cap 02/26/24 [Rx Confirmed 05/07/24] Insulin Lispro [Humalog] 3 unit SQ TIDWM 30 Days #100 units 02/26/24 [Rx Confirmed 05/07/24] Lisinopril 10 mg [Zestril 10 MG] 10 mg PO DAILY 30 Days #30 tablet 02/26/24 [Rx Confirmed 05/07/24] Omeprazole 40 mg PO DAILY PRN 30 Days #30 cap 02/26/24 [Rx Confirmed 05/07/24] Trazodone HCl 50 mg [Desyrel 50 mg] 50 mg PO HS PRN 30 Days #30 tablet 02/26/24 [Rx Confirmed 05/07/24] Insulin Lispro [Humalog] 0 unit SQ ACHS 05/07/24 [History Confirmed 05/07/24] Allergies/Adverse Reactions: Allergies Allergy/AdvReac Type Severity Reaction Status Date / Time diphenhydramine Allergy Difficulty Verified 05/07/24 10:59 [From Benadryl] Breathing Iodinated Contrast Media Allergy Difficulty Verified 05/07/24 10:59 Breathing Exam - Vitals Vital Signs: Vital Signs - 24 hr Temp Pulse Resp BP BP Pulse Ox 05/07/24 15:17 88 20 96 05/07/24 14:30 96.4 F 87 16 163/93 99 05/07/24 14:00 82 20 161/101 99 05/07/24 13:48 97 05/07/24 13:30 81 13 156/94 99 05/07/24 13:00 85 17 177/106 98 05/07/24 12:30 87 26 H 174/106 100 05/07/24 12:00 80 28 H 166/102 99 05/07/24 11:40 76 16 97 05/07/24 11:00 97.7 F 80 10 L 169/104 169/104 100 General:: alert and oriented x 4, no acute distress HEENT: EOMI, other (No significant JVD is apparent although full assessment is limited by technical difficulties.) Cardiovascular Exam: regular rate/rhythm, normal heart sounds, normal peripheral pulses, other (minimal lower extremity edema) Respiratory Exam: normal breath sounds (faint crackles at the bases, o/w CTAB) SpO2: 96 Gastrointestinal/Abdomen Exam: soft, normal bowel sounds Skin Exam: normal color Extremity Exam: normal inspection Neurologic: olive brine tester II-XII grossly intact, 5/5 Motor and Sensory Upper and Lower Extremities Results Vital Signs: Vital Signs - 24 hr Temp Pulse Resp BP BP Pulse Ox 05/07/24 15:17 88 20 96 05/07/24 14:30 96.4 F 87 16 163/93 99 05/07/24 14:00 82 20 161/101 99 05/07/24 13:48 97 05/07/24 13:30 81 13 156/94 99 05/07/24 13:00 85 17 177/106 98 05/07/24 12:30 87 26 H 174/106 100 05/07/24 12:00 80 28 H 166/102 99 05/07/24 11:40 76 16 97 05/07/24 11:00 97.7 F 80 10 L 169/104 169/104 100 Pain Assessment - Last Documented Pain Intensity 0 Intake and Output: Intake & Output 05/05/24 05/06/24 05/07/24 05/08/24 11:59 11:59 11:59 11:59 Weight 86.6 kg 84.9 kg LAB: I have reviewed the Labs in [facility]. Radiology Exams: Radiology Procedures Category Date Time Status CHEST 1 VIEW (PORTABLE) Stat Exams 05/07/24 11:22 Completed Assessment & Plan (1) Acute exacerbation of CHF (congestive heart failure) Current Visit: Yes Status: Acute Qualifiers: Qualified Code(s): I50.43 - Acute on chronic combined systolic (congestive) and diastolic (congestive) heart failure Assessment & Plan: Patient with multiple admissions over the past year with systolic heart failure. He denies every undergoing LHC which seems unusual given it's one of the first tests performed in the workup of heart failure. He denies ever having a heart attack or extensive drug use; etiology of CHF is unclear. He is on a good cardioprotective medical regimen, presuming he takes his meds as prescribed. Agree with diuresing as you are doing. Also needs: -profound CHF education with acceptable diet and how to monitor for volume overload (he doesn't regularly weigh himself which is a critical component to k eeping him out of the hospital), importance of medical compliance, etc. We covered these topics some but he needs formal nutritional education and reinforcement. It seems as if this admission was precipitated by recent dietary noncompliance. -outpatient cardiology evaluation with [facility] if indeed this hasn't been performed yet. -titration of cardioprotective medical regimen as tolerated. -careful following of lytes while diuresing. Code(s): I50.9 - HEART FAILURE, UNSPECIFIED - Encounter Encounter: "The entirety of this encounter was performed via Telemedicine using audio and visual "
[2024-05-07] MEDS: ZOCOR 20MG PO SCH (21:39)
[2024-05-07] MEDS: REQUIP 2MG TAB PO SCH (21:39)
[2024-05-07] MEDS: Cymbalta 30 MG Capsule PO SCH (21:39)
[2024-05-07] MEDS: Lantus Insulin SQ SCH (21:40)
[2024-05-07] MEDS ORDERED: NON-FORMULARY ITEM (Duloxetine Hcl [Cymbalta] 60 MG Capsule.Dr) PO SCH (22:00)
[2024-05-07] MEDS ORDERED: LIPITOR 40MG PO SCH (22:00)
[2024-05-08 04:34] LABS: Hemoglobin 10.2 g/dL (13.7-17.5); Mean Cell Volume 84.9 fL (79.0-92.2); Mean Corpuscular Hemoglobin 27.9 pg (25.7-32.2); Mean Corpuscular Hgb Concent. 32.9 g/dL (32.3-36.5); Mean Platelet Volume 10.7 fL (9.4-12.4); Platelet Count 183 x10^3/uL (163-337); Red Blood Count 3.65 x10^6/uL (4.63-6.08); White Blood Count 4.1 x10^3/uL (4.23-9.07)
[2024-05-08 04:53] LABS: ANION GAP 9.9 MEQ/L (5-15); BILIRUBIN,TOTAL 0.6 mg/dL (0.2-1.3); Calcium 8.8 mg/dL (8.4-10.2); Creatinine 1 1.15 mg/dL (0.66-1.25); EST GLOMERULAR FILTRATION RATE 70.6 ML/MIN; MAGNESIUM 1.5 mg/dL (1.6-2.3); Potassium 3.6 mmol/L (3.5-5.1); Total Protein 5.9 g/dL (6.3-8.2)
[2024-05-08] MEDS: MAG-OX 400 PO SCH (09:03)
[2024-05-08] MEDS ORDERED: NON-FORMULARY ITEM (Potassium Chloride [Potassium Chloride] 10 MEQ Capsule.Er) PO SCH (10:00)
--- NOTE | 2024-05-08 11:58 | PCM.NOTE ---
Date and Time: 05/08/24 1152 Subjective Assessment: 05/07/24 is a 63 year old male with PMHX of multiple medical problems including hypertension, hyperlipidemia, diabetes mellitus, atrial fibrillation with a pacemaker implant, on Eliquis, and congestive heart failure. He presented in the ER with 3 days history of increasing shortness of breath despite taking his routine medications. Patient reports shortness of breath gets worse with lying and partial relief with sitting up. Also worsening with exertion. Reported diffuse chest pain across chest in ER. Since admission has resolved. Has minimal nonproductive cough. Has swelling of lower extremities chronically which is not worse than usual. No fever or chills reported. He has been admitt ed several times for CHF and most recently on 02/23-02/25. He was set up with pallative care at last visit as he has a hx of non-compliance and does not f/u with cardiology and nephrology. He states he has been doing everything and taking all his meds as prescribed. IV lasix gave in ER and will continue BID dosing. Trop x1 elevated 2:2 CHF. Like most visits in the past Trop is elevated. Will continue to trend. He denies CP, abd. pain, N/V/D. 05/09/24 Pt resting in bed. he is feeling much better but continues to have some SOB. He is RA 96%. Echo from 04/19/24 shows EF 20-25%. Cardiology consulted and no new recs provided. Continue TEDS and Lasix BID. Pt to continue with Pallative care and [facility] Op. Nutrition consulted as pt admits to eating salty foods. He denies any further concerns at this time. - Review of Systems Constitutional: No Fever, No Chills Eyes: No Symptoms Ears, Nose, & Throat: No Symptoms Respiratory: Short Of Breath, No Cough Cardiac: Edema, Orthopnea, No Chest Pain, No Syncope Abdominal/Gastrointestinal: No Abdominal Pain, No Nausea, No Vomiting, No Diarrhea Genitourinary Symptoms: No Dysuria Musculoskeletal: No Back Pain, No Neck Pain Skin: No Rash Neurological: No Dizziness, No Focal Weakness, No Sensory Changes Psychological: No Symptoms Endocrine: No Symptoms Hematologic/Lymphatic: No Symptoms Immunological/Allergic: No Symptoms Objective Exam General Appearance: no apparent distress, alert Neurologic Exam: alert, oriented x 3, cooperative, normal mood/affect, nml cerebellar function, sensation nml, No motor deficits Skin Exam: normal color, warm, dry Eye Exam: PERRL, EOMI, eyes nml inspection Ears, Nose, Throat Exam: normal ENT inspection, pharynx normal, moist mucous membranes Neck Exam: normal inspection, non-tender, supple, full range of motion Respiratory Exam: normal breath sounds, lungs clear, crackles/rales (LLL), No respiratory distress Cardiovascular Exam: regular rate/rhythm, normal heart sounds, edema (+1 pitting) Gastrointestinal/Abdomen Exam: soft, No tenderness, No mass Extremity Exam: normal inspection, normal range of motion Back Exam: normal inspection, normal range of motion, No CVA tenderness, No vertebral tenderness Male Genitalia Exam: deferred Rectal Exam: deferred Objective Data Vital Signs: Vital Signs - 24 hr Temp Pulse Resp BP BP Pulse Ox 05/08/24 11:47 98.4 F 77 16 131/74 96 05/08/24 08:10 93 L 05/08/24 07:44 98.1 F 96 H 15 120/74 92 L 05/08/24 04:00 97.3 F 80 20 133/88 95 05/08/24 00:28 97 05/07/24 23:30 97.5 F 79 20 128/73 93 L 05/07/24 19:47 97.1 F 99 H 21 120/76 94 L 05/07/24 19:14 96 05/07/24 18:48 96 05/07/24 15:17 88 20 96 05/07/24 14:30 96.4 F 87 16 163/93 99 05/07/24 14:00 82 20 161/101 99 05/07/24 13:30 81 13 156/94 99 05/07/24 13:00 85 17 177/106 98 05/07/24 12:30 87 26 H 174/106 100 05/07/24 12:00 80 28 H 166/102 99 Pain Assessment - Last Documented Pain Intensity 0 Intake and Output: Intake & Output 05/05/24 05/06/24 05/07/24 05/08/24 11:59 11:59 11:59 11:59 Intake Total 720 Output Total 3400 Balance -2680 Weight 86.6 kg 82.9 kg Lab Results: Lab Results-Last 24 Hours 05/07/24 05/07/24 05/07/24 Range/Units 11:34 11:34 11:34 WBC 4.0 L (4.23-9.07) x10^3/uL RBC 3.86 L (4.63-6.08) x10^6/uL Hgb 10.8 L (13.7-17.5) g/dL Hct 33.4 L (40.1-51.0) % MCV 86.5 (79.0-92.2) fL MCH 28.0 (25.7-32.2) pg MCHC 32.3 (32.3-36.5) g/dL RDW 16.1 H (11.6-14.4) % Plt Count 180 (163-337) x10^3/uL MPV 11.2 (9.4-12.4) fL Gran % 79.1 H (34.0-67.9) % Immature Gran % (Auto) 0.3 (0.001-0.429) % Nucleat RBC Rel Count 0.0 (0.00-0.2) % Eos # (Auto) 0.03 L (0.04-0.54) x10^3/uL Immature Gran # (Auto) 0.01 (0.001-0.031) x10^3u/L Absolute Lymphs (auto) 0.56 L (1.32-3.57) x10^3/uL Absolute Monos (auto) 0.20 L (0.30-0.82) x10^3/uL Absolute Nucleated RBC 0.00 (0.00-0.012) x10^3u/L Lymphocytes % 14.0 L (21.8-53.1) % Monocytes % 5.0 L (5.3-12.2) % Eosinophils % 0.8 (0.8-7.0) % Basophils % 0.8 (0.2-1.2) % Absolute Granulocytes 3.16 (1.78-5.38) x10^3/uL Basophils # 0.03 (0.01-0.08) x10^3/uL Sodium 132 L (135-145) mmol/L Potassium 4.2 (3.5-5.1) mmol/L Chloride 99 (98-107) mmol/L Carbon Dioxide 24 (22-30) mmol/L Anion Gap 12.3 (5-15) MEQ/L BUN 22 H (9-20) mg/dL Creatinine 1.07 (0.66-1.25) mg/dL Estimated GFR 77.0 ML/MIN Glucose 538 H* (74-106) mg/dL POC Glucometer (74 to 106) mg/dL Calcium 8.6 (8.4-10.2) mg/dL Magnesium 1.6 (1.6-2.3) mg/dL Total Bilirubin 0.70 (0.2-1.3) mg/dL AST 19 (17-59) U/L ALT 31 (0-50) U/L Alkaline Phosphatase 162 H (38-126) U/L Troponin I 0.110 H* (0.000-0.033) ng/mL NT-Pro-B Natriuret Pep 89574 (<300) pg/mL Serum Total Protein 6.5 (6.3-8.2) g/dL Albumin 3.5 (3.5-5.0) g/dL Slides for Path Review YES 05/07/24 05/07/24 05/07/24 Range/Units 13:23 15:10 15:51 WBC (4.23-9.07) x10^3/uL RBC (4.63-6.08) x10^6/uL Hgb (13.7-17.5) g/dL Hct (40.1-51.0) % MCV (79.0-92.2) fL MCH (25.7-32.2) pg MCHC (32.3-36.5) g/dL RDW (11.6-14.4) % Plt Count (163-337) x10^3/uL MPV (9.4-12.4) fL Gran % (34.0-67.9) % Immature Gran % (Auto) (0.001-0.429) % Nucleat RBC Rel Count (0.00-0.2) % Eos # (Auto) (0.04-0.54) x10^3/uL Immature Gran # (Auto) (0.001-0.031) x10^3u/L Absolute Lymphs (auto) (1.32-3.57) x10^3/uL Absolute Monos (auto) (0.30-0.82) x10^3/uL Absolute Nucleated RBC (0.00-0.012) x10^3u/L Lymphocytes % (21.8-53.1) % Monocytes % (5.3-12.2) % Eosinophils % (0.8-7.0) % Basophils % (0.2-1.2) % Absolute Granulocytes (1.78-5.38) x10^3/uL Basophils # (0.01-0.08) x10^3/uL Sodium (135-145) mmol/L Potassium (3.5-5.1) mmol/L Chloride (98-107) mmol/L Carbon Dioxide (22-30) mmol/L Anion Gap (5-15) MEQ/L BUN (9-20) mg/dL Creatinine (0.66-1.25) mg/dL Estimated GFR ML/MIN Glucose (74-106) mg/dL POC Glucometer 372 H 200 H (74 to 106) mg/dL Calcium (8.4-10.2) mg/dL Magnesium (1.6-2.3) mg/dL Total Bilirubin (0.2-1.3) mg/dL AST (17-59) U/L ALT (0-50) U/L Alkaline Phosphatase (38-126) U/L Troponin I 0.104 H* (0.000-0.033) ng/mL NT-Pro-B Natriuret Pep (<300) pg/mL Serum Total Protein (6.3-8.2) g/dL Albumin (3.5-5.0) g/dL Slides for Path Review 05/07/24 05/07/24 05/08/24 Range/Units 19:35 21:38 04:25 WBC (4.23-9.07) x10^3/uL RBC (4.63-6.08) x10^6/uL Hgb (13.7-17.5) g/dL Hct (40.1-51.0) % MCV (79.0-92.2) fL MCH (25.7-32.2) pg MCHC (32.3-36.5) g/dL RDW (11.6-14.4) % Plt Count (163-337) x10^3/uL MPV (9.4-12.4) fL Gran % (34.0-67.9) % Immature Gran % (Auto) (0.001-0.429) % Nucleat RBC Rel Count (0.00-0.2) % Eos # (Auto) (0.04-0.54) x10^3/uL Immature Gran # (Auto) (0.001-0.031) x10^3u/L Absolute Lymphs (auto) (1.32-3.57) x10^3/uL Absolute Monos (auto) (0.30-0.82) x10^3/uL Absolute Nucleated RBC (0.00-0.012) x10^3u/L Lymphocytes % (21.8-53.1) % Monocytes % (5.3-12.2) % Eosinophils % (0.8-7.0) % Basophils % (0.2-1.2) % Absolute Granulocytes (1.78-5.38) x10^3/uL Basophils # (0.01-0.08) x10^3/uL Sodium 136 (135-145) mmol/L Potassium 3.6 (3.5-5.1) mmol/L Chloride 101 (98-107) mmol/L Carbon Dioxide 29 (22-30) mmol/L Anion Gap 9.9 (5-15) MEQ/L BUN 20 (9-20) mg/dL Creatinine 1.15 (0.66-1.25) mg/dL Estimated GFR 70.6 ML/MIN Glucose 142 H (74-106) mg/dL POC Glucometer 242 H (74 to 106) mg/dL Calcium 8.8 (8.4-10.2) mg/dL Magnesium 1.5 L (1.6-2.3) mg/dL Total Bilirubin 0.60 (0.2-1.3) mg/dL AST 20 (17-59) U/L ALT 25 (0-50) U/L Alkaline Phosphatase 138 H (38-126) U/L Troponin I 0.108 H* (0.000-0.033) ng/mL NT-Pro-B Natriuret Pep (<300) pg/mL Serum Total Protein 5.9 L (6.3-8.2) g/dL Albumin 3.0 L (3.5-5.0) g/dL Slides for Path Review 05/08/24 05/08/24 05/08/24 Range/Units 04:25 07:18 11:35 WBC 4.1 L (4.23-9.07) x10^3/uL RBC 3.65 L (4.63-6.08) x10^6/uL Hgb 10.2 L (13.7-17.5) g/dL Hct 31.0 L (40.1-51.0) % MCV 84.9 (79.0-92.2) fL MCH 27.9 (25.7-32.2) pg MCHC 32.9 (32.3-36.5) g/dL RDW 16.0 H (11.6-14.4) % Plt Count 183 (163-337) x10^3/uL MPV 10.7 (9.4-12.4) fL Gran % (34.0-67.9) % Immature Gran % (Auto) (0.001-0.429) % Nucleat RBC Rel Count (0.00-0.2) % Eos # (Auto) (0.04-0.54) x10^3/uL Immature Gran # (Auto) (0.001-0.031) x10^3u/L Absolute Lymphs (auto) (1.32-3.57) x10^3/uL Absolute Monos (auto) (0.30-0.82) x10^3/uL Absolute Nucleated RBC (0.00-0.012) x10^3u/L Lymphocytes % (21.8-53.1) % Monocytes % (5.3-12.2) % Eosinophils % (0.8-7.0) % Basophils % (0.2-1.2) % Absolute Granulocytes (1.78-5.38) x10^3/uL Basophils # (0.01-0.08) x10^3/uL Sodium (135-145) mmol/L Potassium (3.5-5.1) mmol/L Chloride (98-107) mmol/L Carbon Dioxide (22-30) mmol/L Anion Gap (5-15) MEQ/L BUN (9-20) mg/dL Creatinine (0.66-1.25) mg/dL Estimated GFR ML/MIN Glucose (74-106) mg/dL POC Glucometer 110 H 155 H (74 to 106) mg/dL Calcium (8.4-10.2) mg/dL Magnesium (1.6-2.3) mg/dL Total Bilirubin (0.2-1.3) mg/dL AST (17-59) U/L ALT (0-50) U/L Alkaline Phosphatase (38-126) U/L Troponin I (0.000-0.033) ng/mL NT-Pro-B Natriuret Pep (<300) pg/mL Serum Total Protein (6.3-8.2) g/dL Albumin (3.5-5.0) g/dL Slides for Path Review Radiology Exams: Radiology Procedures Category Date Time Status CHEST 1 VIEW (PORTABLE) Stat Exams 05/07/24 11:22 Completed Multi-Disciplinary Progress Notes: Multi-Disciplinary Progress Notes 05/08/24 10:06 Case Management Note by Sihrley Rossi Addendum entered by Shirley Rossi 05/08/24 10:09: [facility] P[facility] NOTIFIED OF STAY Original Note: REFERRAL FAXED TO [facility]. THEY WILL NEED NOTIFIED AT TIME OF DC AT [phone]. THEY WILL NEED FAXED THE DC INSTRUCTIONS, DC MED LIST AND DC SUMMARY TO [phone] PATIENT ALSO HAS [facility] PALLIATIVE CARE. THEY DO NOT NEED CALLED AT DC BUT DO NEED FAXED THE H&P, DC INSTRUCTIONS, DC MED LIST AND DC SUMMARY TO [phone] Initialized on 05/08/24 10:06 - END OF NOTE Assessment/Plan (1) Acute exacerbation of CHF (congestive heart failure) Current Visit: Yes Status: Acute Qualifiers: Code(s): I50.9 - HEART FAILURE, UNSPECIFIED (2) Elevated troponin Current Visit: Yes Status: Acute Code(s): R79.89 - OTHER SPECIFIED ABNORMAL FINDINGS OF BLOOD CHEMISTRY (3) Hyperglycemia Current Visit: Yes Status: Acute Code(s): R73.9 - HYPERGLYCEMIA, UNSPECIFIED (4) Afib Current Visit: No Status: Chronic Assessment & Plan: (1) Acute exacerbation of CHF (congestive heart failure) Current Visit: Yes Status: Acute Qualifiers: Assessment & Plan: - Lasix BID - TEDS - tele - BNP 26,600 - low sodium/ carb consistent diet - Continue coreg and jardiance - Cardiology consult- reviewed note and agree with plan of care - Chest XR Portable chest again demonstrates borderline enlarged heart with left pacemaker. New pulmonary edema and small bibasilar effusions right greater than left favoring cardiac decompensation/CHF. Superimposed pneumonia not completely excluded. Bony thorax intact. - Echo 07/29/23 EF at 33% - Echo 04/19/24: EF 20-25% 05/08 - Continue Pallative care OP, Continue HHC Op - F/U OP with cardiology - continue IV lasix BID/ TEDS - nutrition consult Code(s): I50.9 - HEART FAILURE, UNSPECIFIED (2) Elevated troponin Current Visit: Yes Status: Acute Assessment & Plan: - Trop x1 0.110, 0.104, 0.108 - tele - cardiology consult- reviewed note and agree with plan of care - EKG Code(s): R79.89 - OTHER SPECIFIED ABNORMAL FINDINGS OF BLOOD CHEMISTRY (3) Hyperglycemia Current Visit: Yes Status: Acute Assessment & Plan: - Insulin gave in the ER - Accuchecks ac/hs - High dose s/s 05/08 - glucose improved- trend Code(s): R73.9 - HYPERGLYCEMIA, UNSPECIFIED (4) Afib Current Visit: No Status: Chronic Assessment & Plan: - chronic - continue Eliquis - tele Code(s): I48.91 - UNSPECIFIED ATRIAL FIBRILLATION (5) HTN (hypertension) Current Visit: No Status: Acute Assessment & Plan: - BP stable - continue home meds Code(s): I10 - ESSENTIAL (PRIMARY) HYPERTENSION (6) Hyperlipidemia Current Visit: No Status: Acute Assessment & Plan: - continue statin VTE: Eliquis PPI: Protonix D/C plan: 1-2 days Next of KIN: Charito Danielle Code status: Full Code(s): E78.5 - HYPERLIPIDEMIA, UNSPECIFIED
--- NOTE | 2024-05-08 17:14 | PCM.NOTE ---
Date and Time: 05/08/24 171 Subjective Assessment: No acute events overnight. still needs oxygen when lying flat. Overall says he feels a lot better. Objective Exam General Appearance: no apparent distress Neurologic Exam: alert, oriented x 3, cooperative Eye Exam: EOMI Neck Exam: JVD (No JVD apparent.) Respiratory Exam: other (crackles improved) Cardiovascular Exam: normal heart sounds Gastrointestinal/Abdomen Exam: soft, normal bowel sounds Extremity Exam: other (no edema) Objective Data Vital Signs: Vital Signs - 24 hr Temp Pulse Resp BP Pulse Ox 05/08/24 16:00 97.5 F 67 20 136/86 96 05/08/24 11:47 98.4 F 77 16 131/74 96 05/08/24 08:10 93 L 05/08/24 07:44 98.1 F 96 H 15 120/74 92 L 05/08/24 04:00 97.3 F 80 20 133/88 95 05/08/24 00:28 97 05/07/24 23:30 97.5 F 79 20 128/73 93 L 05/07/24 19:47 97.1 F 99 H 21 120/76 94 L 05/07/24 19:14 96 05/07/24 18:48 96 Pain Assessment - Last Documented Pain Intensity 0 Intake and Output: Intake & Output 05/06/24 05/07/24 05/08/24 05/09/24 11:59 11:59 11:59 11:59 Intake Total 720 600 Output Total 4200 525 Balance -3480 75 Weight 86.6 kg 82.9 kg Lab Results: Lab Results-Last 24 Hours 05/07/24 05/07/24 05/08/24 Range/Units 19:35 21:38 04:25 WBC (4.23-9.07) x10^3/uL RBC (4.63-6.08) x10^6/uL Hgb (13.7-17.5) g/dL Hct (40.1-51.0) % MCV (79.0-92.2) fL MCH (25.7-32.2) pg MCHC (32.3-36.5) g/dL RDW (11.6-14.4) % Plt Count (163-337) x10^3/uL MPV (9.4-12.4) fL Sodium 136 (135-145) mmol/L Potassium 3.6 (3.5-5.1) mmol/L Chloride 101 (98-107) mmol/L Carbon Dioxide 29 (22-30) mmol/L Anion Gap 9.9 (5-15) MEQ/L BUN 20 (9-20) mg/dL Creatinine 1.15 (0.66-1.25) mg/dL Estimated GFR 70.6 ML/MIN Glucose 142 H (74-106) mg/dL POC Glucometer 242 H (74 to 106) mg/dL Calcium 8.8 (8.4-10.2) mg/dL Magnesium 1.5 L (1.6-2.3) mg/dL Total Bilirubin 0.60 (0.2-1.3) mg/dL AST 20 (17-59) U/L ALT 25 (0-50) U/L Alkaline Phosphatase 138 H (38-126) U/L Troponin I 0.108 H* (0.000-0.033) ng/mL Serum Total Protein 5.9 L (6.3-8.2) g/dL Albumin 3.0 L (3.5-5.0) g/dL 05/08/24 05/08/24 05/08/24 Range/Units 04:25 07:18 11:35 WBC 4.1 L (4.23-9.07) x10^3/uL RBC 3.65 L (4.63-6.08) x10^6/uL Hgb 10.2 L (13.7-17.5) g/dL Hct 31.0 L (40.1-51.0) % MCV 84.9 (79.0-92.2) fL MCH 27.9 (25.7-32.2) pg MCHC 32.9 (32.3-36.5) g/dL RDW 16.0 H (11.6-14.4) % Plt Count 183 (163-337) x10^3/uL MPV 10.7 (9.4-12.4) fL Sodium (135-145) mmol/L Potassium (3.5-5.1) mmol/L Chloride (98-107) mmol/L Carbon Dioxide (22-30) mmol/L Anion Gap (5-15) MEQ/L BUN (9-20) mg/dL Creatinine (0.66-1.25) mg/dL Estimated GFR ML/MIN Glucose (74-106) mg/dL POC Glucometer 110 H 155 H (74 to 106) mg/dL Calcium (8.4-10.2) mg/dL Magnesium (1.6-2.3) mg/dL Total Bilirubin (0.2-1.3) mg/dL AST (17-59) U/L ALT (0-50) U/L Alkaline Phosphatase (38-126) U/L Troponin I (0.000-0.033) ng/mL Serum Total Protein (6.3-8.2) g/dL Albumin (3.5-5.0) g/dL 05/08/24 Range/Units 16:37 WBC (4.23-9.07) x10^3/uL RBC (4.63-6.08) x10^6/uL Hgb (13.7-17.5) g/dL Hct (40.1-51.0) % MCV (79.0-92.2) fL MCH (25.7-32.2) pg MCHC (32.3-36.5) g/dL RDW (11.6-14.4) % Plt Count (163-337) x10^3/uL MPV (9.4-12.4) fL Sodium (135-145) mmol/L Potassium (3.5-5.1) mmol/L Chloride (98-107) mmol/L Carbon Dioxide (22-30) mmol/L Anion Gap (5-15) MEQ/L BUN (9-20) mg/dL Creatinine (0.66-1.25) mg/dL Estimated GFR ML/MIN Glucose (74-106) mg/dL POC Glucometer 178 H (74 to 106) mg/dL Calcium (8.4-10.2) mg/dL Magnesium (1.6-2.3) mg/dL Total Bilirubin (0.2-1.3) mg/dL AST (17-59) U/L ALT (0-50) U/L Alkaline Phosphatase (38-126) U/L Troponin I (0.000-0.033) ng/mL Serum Total Protein (6.3-8.2) g/dL Albumin (3.5-5.0) g/dL Radiology Exams: Radiology Procedures Category Date Time Status CHEST 1 VIEW (PORTABLE) Stat Exams 05/07/24 11:22 Completed Multi-Disciplinary Progress Notes: Multi-Disciplinary Progress Notes 05/08/24 14:00 (created 05/08/24 14:14) Respiratory Note by Shari Mancera PATIENT O2 SAT 86% ON ROOM AIR AT REST. PLACED PATIENT ON O2 AT 2LPM AND O2 SAT INCREASED TO 92% ON 2LPM PER NC AT REST. Initialized on 05/08/24 14:14 - END OF NOTE 05/08/24 10:06 Case Management Note by Shirley Rossi Addendum entered by Shirley Rossi 05/08/24 10:09: [facility] Original Note: REFERRAL FAXED TO [facility]. THEY WILL NEED NOTIFIED AT TIME OF DC AT [phone]. THEY WILL NEED FAXED THE DC INSTRUCTIONS, DC MED LIST AND DC SUMMARY TO [phone] PATIENT ALSO HAS [facility] PALLIATIVE CARE. THEY DO NOT NEED CALLED AT DC BUT DO NEED FAXED THE H&P, DC INSTRUCTIONS, DC MED LIST AND DC SUMMARY TO [phone] Initialized on 05/08/24 10:06 - END OF NOTE Assessment/Plan (1) Acute exacerbation of CHF (congestive heart failure) Current Visit: Yes Status: Acute Qualifiers: Assessment & Plan: He seems to be diuresing well with significant drop in his weight. Continue to diurese; seems to be approaching euvolemia. Recs remain heavy on education (see my initial consult note) and workup with [facility] as outpatient as this doesn't seem to have been performed yet. Code(s): I50.9 - HEART FAILURE, UNSPECIFIED Telemedicine Encounter - Telemedicine Encounter Telemedicine Encounter: "The entirety of this encounter was performed via Telemedicine" This visit was performed using real-time audio and video connection between my location and thepatients locationwith the assistance of a surrogateat the patients location. Written or verbal consent was obtained from the patient/guardian to perform this visit using[employer] Step[employer]medicine technology. Any patient questions regarding the telemedicine interaction were answered.
[2024-05-08] MEDS: DESYREL 50 MG PO PRN (21:45)
[2024-05-09 05:57] LABS: Hematocrit 31.2 % (40.1-51.0); Hemoglobin 10.1 g/dL (13.7-17.5); Mean Corpuscular Hemoglobin 27.5 pg (25.7-32.2); Mean Corpuscular Hgb Concent. 32.4 g/dL (32.3-36.5); Mean Platelet Volume 10.8 fL (9.4-12.4); Platelet Count 191 x10^3/uL (163-337); Red Blood Count 3.67 x10^6/uL (4.63-6.08); Red Cell Distribution Width 16.2 % (11.6-14.4); White Blood Count 4.9 x10^3/uL (4.23-9.07)
[2024-05-09 06:32] LABS: ALBUMIN 3.1 g/dL (3.5-5.0); ANION GAP 9.1 MEQ/L (5-15); BILIRUBIN,TOTAL 0.5 mg/dL (0.2-1.3); Calcium 8.6 mg/dL (8.4-10.2); Creatinine 1 1.23 mg/dL (0.66-1.25); EST GLOMERULAR FILTRATION RATE 65.2 ML/MIN; Potassium 3.6 mmol/L (3.5-5.1); Total Protein 5.9 g/dL (6.3-8.2)
[2024-05-09 07:24] VITALS: BP 123/77; PULSE 81; RESP 16; TEMP 98; O2SAT 95
--- NOTE | 2024-05-09 10:02 | PCM.DS ---
Discharge Summary Date of Admission: 05/07/24 14:28 Date of Discharge: 05/09/24 Admitting Physician: JOSEPH RACHEL MD Consults: Consults on Case 05/07/24 15:44 Consult Cardiology ROUTINE 05/08/24 07:40 Nutritional Consult ROUTINE Primary Care Provider: ROGELIO CAVAZOS DO Allergies Allergies diphenhydramine [From Benadryl] Allergy (Verified 05/07/24 10:59) Difficulty Breathing Iodinated Contrast Media Allergy (Verified 05/07/24 10:59) Difficulty Breathing Hospital Summary - Hospital Course Hospital Course: 05/07/24 is a 63 year old male with PMHX of multiple medical problems including hypertension, hyperlipidemia, diabetes mellitus, atrial fibrillation with a pacemaker implant, on Eliquis, and congestive heart failure. He presented in the ER with 3 days history of increasing shortness of breath despite taking his routine medications. Patient reports shortness of breath gets worse with lying and partial relief with sitting up. Also worsening with exertion. Reported diffuse chest pain across chest in ER. Since admission has resolved. Has minimal nonproductive cough. Has swelling of lower extremities chronically which is not worse than usual. No fever or chills reported. He has been admitted several times for CHF and most recently on 02/23-02/25. He was set up with pallative care at last visit as he has a hx of non-compliance and does not f/u with cardiology and nephrology. He states he has been doing everything and taking all his meds as prescribed. IV lasix gave in ER and will continue BID dosing. Trop x1 elevated 2:2 CHF. Like most visits in the past Trop is elevated. Will continue to trend. He denies CP, abd. pain, N/V/D. 05/09/24 Pt resting in bed. he is feeling much better but continues to have some SOB. He is RA 96%. Echo from 04/19/24 shows EF 20-25%. Cardiology consulted and no new recs provided. Continue TEDS and Lasix BID. Pt to continue with Pallative care and [facility] Op. Nutrition consulted as pt admits to eating salty foods. He denies any further concerns at this time. 05/10/24 Pt sitting up in bed. He reports he is feeling better and ready to go home. He denies CP, SOB, abd. pain, N/V/D. Education provided on low sodium diet and flui d restriction at home. Nutrition was not available on Saturday. Pt to continue Pallative care OP. Case management set up HHC. Pt to f/u OP with cardiology. Pt at risk risk for repeat admission if he is noncompliant. - Vitals & Intake/Output Vital Signs: Vital Signs Temperature 98.0 F 05/09/24 07:23 Pulse Rate 81 05/09/24 07:23 Respiratory Rate 16 05/09/24 07:23 Blood Pressure 123/77 05/09/24 07:23 O2 Sat by Pulse Oximetry 95 05/09/24 08:15 Intake & Output: Intake & Output 05/06/24 05/07/24 05/08/24 05/09/24 11:59 11:59 11:59 11:59 Intake Total 720 840 Output Total 4200 2175 Balance -7530 -4790 Weight 86.6 kg 82.9 kg 80 kg - Lab Result Diagrams: 05/09/24 05:45 05/09/24 05:45 Lab Results-Last 24 Hrs: Lab Results-Last 24 Hours 05/08/24 05/08/24 05/08/24 Range/Units 11:35 16:37 20:41 WBC (4.23-9.07) x10^3/uL RBC (4.63-6.08) x10^6/uL Hgb (13.7-17.5) g/dL Hct (40.1-51.0) % MCV (79.0-92.2) fL MCH (25.7-32.2) pg MCHC (32.3-36.5) g/dL RDW (11.6-14.4) % Plt Count (163-337) x10^3/uL MPV (9.4-12.4) fL Sodium (135-145) mmol/L Potassium (3.5-5.1) mmol/L Chloride (98-107) mmol/L Carbon Dioxide (22-30) mmol/L Anion Gap (5-15) MEQ/L BUN (9-20) mg/dL Creatinine (0.66-1.25) mg/dL Estimated GFR ML/MIN Glucose (74-106) mg/dL POC Glucometer 155 H 178 H 152 H (74 to 106) mg/dL Hemoglobin A1c (4.5-6.0) % Calcium (8.4-10.2) mg/dL Total Bilirubin (0.2-1.3) mg/dL AST (17-59) U/L ALT (0-50) U/L Alkaline Phosphatase (38-126) U/L Serum Total Protein (6.3-8.2) g/dL Albumin (3.5-5.0) g/dL 05/09/24 05/09/24 05/09/24 Range/Units 05:45 05:45 05:45 WBC 4.9 (4.23-9.07) x10^3/uL RBC 3.67 L (4.63-6.08) x10^6/uL Hgb 10.1 L (13.7-17.5) g/dL Hct 31.2 L (40.1-51.0) % MCV 85.0 (79.0-92.2) fL MCH 27.5 (25.7-32.2) pg MCHC 32.4 (32.3-36.5) g/dL RDW 16.2 H (11.6-14.4) % Plt Count 191 (163-337) x10^3/uL MPV 10.8 (9.4-12.4) fL Sodium 134 L (135-145) mmol/L Potassium 3.6 (3.5-5.1) mmol/L Chloride 98 (98-107) mmol/L Carbon Dioxide 30 (22-30) mmol/L Anion Gap 9.1 (5-15) MEQ/L BUN 23 H (9-20) mg/dL Creatinine 1.23 (0.66-1.25) mg/dL Estimated GFR 65.2 ML/MIN Glucose 112 H (74-106) mg/dL POC Glucometer (74 to 106) mg/dL Hemoglobin A1c 10.40 H (4.5-6.0) % Calcium 8.6 (8.4-10.2) mg/dL Total Bilirubin 0.50 (0.2-1.3) mg/dL AST 23 (17-59) U/L ALT 25 (0-50) U/L Alkaline Phosphatase 130 H (38-126) U/L Serum Total Protein 5.9 L (6.3-8.2) g/dL Albumin 3.1 L (3.5-5.0) g/dL 05/09/24 Range/Units 07:17 WBC (4.23-9.07) x10^3/uL RBC (4.63-6.08) x10^6/uL Hgb (13.7-17.5) g/dL Hct (40.1-51.0) % MCV (79.0-92.2) fL MCH (25.7-32.2) pg MCHC (32.3-36.5) g/dL RDW (11.6-14.4) % Plt Count (163-337) x10^3/uL MPV (9.4-12.4) fL Sodium (135-145) mmol/L Potassium (3.5-5.1) mmol/L Chloride (98-107) mmol/L Carbon Dioxide (22-30) mmol/L Anion Gap (5-15) MEQ/L BUN (9-20) mg/dL Creatinine (0.66-1.25) mg/dL Estimated GFR ML/MIN Glucose (74-106) mg/dL POC Glucometer 93 (74 to 106) mg/dL Hemoglobin A1c (4.5-6.0) % Calcium (8.4-10.2) mg/dL Total Bilirubin (0.2-1.3) mg/dL AST (17-59) U/L ALT (0-50) U/L Alkaline Phosphatase (38-126) U/L Serum Total Protein (6.3-8.2) g/dL Albumin (3.5-5.0) g/dL Micro Results-Entire Visit: Accuchecks Date 05/09/24 Date 05/08/24 Date 05/08/24 Date 05/08/24 Time 07:24 Time 20:45 - Radiology Exams Ordered Rad Exams-Entire Visit: Radiology Procedures Category Date Time Status CHEST 1 VIEW (PORTABLE) Stat Exams 05/07/24 11:22 Completed - Procedures and Test Procedures and Tests throughout Hospitalization: Therapy Orders & Screens 05/07/24 11:40 Respiratory Therapy Assessment DAILY Comment: 05/07/24 14:29 Oxygen Nasal Cannula 2 lpm Comment: Respiratory Therapy Consult ONCE Comment: Reason For Exam: Discharge Exam General Appearance: no apparent distress, alert Neurologic Exam: alert, oriented x 3, cooperative, normal mood/affect, nml cerebellar function, sensation nml, No motor deficits Eye Exam: PERRL, EOMI, eyes nml inspection Ears, Nose, Throat Exam: normal ENT inspection, pharynx normal, moist mucous membranes Neck Exam: normal inspection, non-tender, supple, full range of motion Respiratory Exam: normal breath sounds, lungs clear, No respiratory distress Cardiovascular Exam: regular rate/rhythm, normal heart sounds Gastrointestinal/Abdomen Exam: soft, No tenderness, No mass Male Genitalia Exam: deferred Rectal Exam: deferred Back Exam: normal inspection, normal range of motion, No CVA tenderness, No vertebral tenderness Extremity Exam: normal inspection, normal range of motion Skin Exam: normal color, warm, dry Final Diagnosis/Problem List - Final Discharge Diagnosis/Problem (1) Acute exacerbation of CHF (congestive heart failure) Current Visit: Yes Status: Acute Code(s): I50.9 - HEART FAILURE, UNSPECIFIED (2) Elevated troponin Current Visit: Yes Status: Acute Code(s): R79.89 - OTHER SPECIFIED ABNORMAL FINDINGS OF BLOOD CHEMISTRY (3) Hyperglycemia Current Visit: Yes Status: Acute Code(s): R73.9 - HYPERGLYCEMIA, UNSPECIFIED (4) Afib Current Visit: No Status: Chronic Code(s): I48.91 - UNSPECIFIED ATRIAL FIBRILLATION (5) HTN (hypertension) Current Visit: No Status: Acute Code(s): I10 - ESSENTIAL (PRIMARY) HYPERTENSION (6) Hyperlipidemia Current Visit: No Status: Acute Assessment & Plan: (1) Acute exacerbation of CHF (congestive heart failure) Current Visit: Yes Status: Acute Qualifiers: Assessment & Plan: - Lasix BID - TEDS - tele - BNP 26,600 - low sodium/ carb consistent diet - Continue coreg and jardiance - Cardiology consult- reviewed note and agree with plan of care - Chest XR Portable chest again demonstrates borderline enlarged heart with left pacemaker. New pulmonary edema and small bibasilar effusions right greater than left favoring cardiac decompensation/CHF. Superimposed pneumonia not completely excluded. Bony thorax intact. - Echo 07/29/23 EF at 33% - Echo 04/19/24: EF 20-25% 05/08 - Continue Pallative care OP, Continue HHC Op - F/U OP with cardiology - continue IV lasix BID/ TEDS - nutrition consult 05/09 - F/U with cardiology OP - Continue Pallative care OP, Continue [facility] Op - low sodium diet and fluid restriction education provided Code(s): I50.9 - HEART FAILURE, UNSPECIFIED (2) Elevated troponin Current Visit: Yes Status: Acute Assessment & Plan: - Trop x1 0.110, 0.104, 0.108 - tele - cardiology consult- reviewed note and agree with plan of care - EKG Code(s): R79.89 - OTHER SPECIFIED ABNORMAL FINDINGS OF BLOOD CHEMISTRY (3) Hyperglycemia Current Visit: Yes Status: Acute Assessment & Plan: - Insulin gave in the ER - Accuchecks ac/hs - High dose s/s 05/08 - glucose improved- trend Code(s): R73.9 - HYPERGLYCEMIA, UNSPECIFIED (4) Afib Current Visit: No Status: Chronic Assessment & Plan: - chronic - continue Eliquis - tele Code(s): I48.91 - UNSPECIFIED ATRIAL FIBRILLATION (5) HTN (hypertension) Current Visit: No Status: Acute Assessment & Plan: - BP stable - continue home meds Code(s): I10 - ESSENTIAL (PRIMARY) HYPERTENSION (6) Hyperlipidemia Current Visit: No Status: Acute Assessment & Plan: - continue statin Code(s): E78.5 - HYPERLIPIDEMIA, UNSPECIFIED - Discharge Discharge Date: 05/09/24 (Pallative) Disposition: HOME HEALTH SERVICE Condition: Stable Prescriptions: Continue Duloxetine HCl [Cymbalta] 60 mg PO BID Ropinirole 2Mg [Requip 2Mg Tab] 2 mg PO HS Insulin Glargine [Lantus Insulin] 50 unit SQ DAILY Spironolactone 25 mg [Aldactone 25 MG] 25 mg PO DAILY 30 Days #30 tablet Apixaban [Eliquis 2.5 mg Tablet] 5 mg PO BID 30 Days #60 tablet Furosemide 40 mg [Lasix 40 MG] 40 mg PO DAILY 30 Days #30 tablet Potassium Chloride 20 meq PO DAILY Empagliflozin [Jardiance] 25 mg PO DAILY Carvedilol 12.5 mg [Coreg 12.5 mg] 12.5 mg PO BID 30 Days #60 tablet Trazodone HCl 50 mg [Desyrel 50 mg] 50 mg PO HS PRN 30 Days #30 tablet PRN Reason: Insomnia Atorvastatin Calcium [Lipitor 40Mg] 40 mg PO HS 30 Days #30 tablet Gabapentin [Neurontin ] 100 mg PO TID 30 Days #90 cap Omeprazole 40 mg PO DAILY PRN 30 Days #30 cap PRN Reason: Indigestion Lisinopril 10 mg [Zestril 10 MG] 10 mg PO DAILY 30 Days #30 tablet Insulin Lispro [Humalog] 3 unit SQ TIDWM 30 Days #100 units Insulin Lispro [Humalog] 0 unit SQ ACHS Instructions: Heart Healthy Diet, Diabetes and diet, Low-sodium diet, Heart failure - Discharge instructions Additional Instructions: Weight yourself daily, if you gain >3 lbs take an extra Lasix. Follow up with: ROGELIO CAVAZOS DO [Primary Care Provider] - 05/13/24 3:00 pm Forms: Discharge Instructions
== END 2024-05-09 10:28 | disposition home health service (06) ==
LOC: ED 10:31 → MED SURG 14:28
PROVIDERS: ADMIT Internal Medicine; ATTEND Internal Medicine
DX: I11.0 Hypertensive heart disease with heart failure (principal); I50.9 Heart failure, unspecified; E11.65 Type 2 diabetes mellitus with hyperglycemia; I48.91 Unspecified atrial fibrillation; R07.9 Chest pain, unspecified; E78.5 Hyperlipidemia, unspecified; Z95.0 Presence of cardiac pacemaker; Z79.01 Long term (current) use of anticoagulants; Z79.899 Other long term (current) drug therapy; R79.89 Other specified abnormal findings of blood chemistry; J44.9 Chronic obstructive pulmonary disease, unspecified
CPT/HCPCS: 36000; 36415; 71045; 80053; 82947; 83036; 83605; 83735; 83880; 84484; 85025; 85027; 93005; 93041; 93268; 94640; 94762; 96374; 96375; 99285; G0378; Q3014; J1815; J1817; J1940; A9270-GY

== ENCOUNTER 2024-05-17 21:29 | Observation (INO) | payer MEDICARE ==
--- NOTE | 2024-05-17 21:54 | ERPHSYRPT ---
- History of Present Illness Time Seen by Provider: 05/17/24 21:53 Source: patient, EMS Patient Subjective Stated Complaint: pt states he has been having muscle spasms mostly in his lt leg. states hw will also have spasms in his other leg and upper extremties frequently Triage Nursing Assessment: pt alert and oriented, answers questions approp. pt arrive per ambulance and transfers to [facility] with assist of 3. pt having erratic movements of his lt leg and lt arm. pt states he has these symptoms at times. Physician History: 63yo m presents via EMS for LE muscle spasms that started earlier today. Pt reports he is on significant fluid restriction 2/2 his CHF, states he has had less than 1L of water today. Pt reports he feels weak on standing. Pt denies any falls, denies any KOENIG, vision changes, change in mental status. Pt denies any cp, sob, n/v/d. Pt has significant cardiac hx, also is DM2 on insulin, reports his BG was > 400 today, has not taken his night time insulin. Timing/Duration: today Severity: moderate Modifying Factors: Improves With: nothing Associated Symptoms: weakness, No nausea, No vomiting, No shortness of breath, No chest pain, No headaches, No syncope Allergies/Adverse Reactions: diphenhydramine [From Benadryl] Allergy (Verified 05/17/24 21:52) Difficulty Breathing Iodinated Contrast Media Allergy (Verified 05/17/24 21:52) Difficulty Breathing Home Medications: Duloxetine HCl [Cymbalta] 60 mg PO BID 07/28/23 [History] Insulin Glargine [Lantus Insulin] 50 unit SQ DAILY 07/28/23 [History] Ropinirole 2Mg [Requip 2Mg Tab] 2 mg PO HS 07/28/23 [History] Potassium Chloride 20 meq PO DAILY 10/16/23 [History] Empagliflozin [Jardiance] 25 mg PO DAILY 01/29/24 [History] Insulin Lispro [Humalog] 0 unit SQ ACHS 05/07/24 [History] Hx Tetanus, Diphtheria Vaccination/Date Given: Yes Hx Influenza Vaccination/Date Given: Yes Hx Pneumococcal Vaccination/Date Given: Yes Immunizations Up to Date: Yes Travel Risk - International Travel Have you traveled outside of the country in past 3 weeks: No - Emerging Infectious Disease Are you exhibiting symptoms associated with any current EIDs: No Symptoms: Shortness of Breath - Review of Systems Constitutional: No Symptoms Respiratory: No Symptoms Cardiac: No Symptoms Musculoskeletal: Other (muscle spasms) - Past Medical History Pertinent Past Medical History: Yes Neurological History: Peripheral Neuropathy, Stroke ENT History: Cataracts Cardiac History: Arrhythmia, Congestive Heart Failure, High Cholesterol, Hypertension Respiratory History: Bronchitis, CHF, COPD, Sleep Apnea Endocrine Medical History: Diabetes Type II Musculoskeletal History: Arthritis, Osteoarthritis, Other GI Medical History: GERD, Gallbladder Disease History: Renal Disease Psycho-Social History: Anxiety, Depression Male Reproductive Disorders: No Pertinent History Other Medical History: a.fib, restless leg, bulging discs cervical spine, carpal tunnel - Past Surgical History Past Surgical History: Yes Neuro Surgical History: No Pertinent History Cardiac: Pacemaker Respiratory: No Pertinent History Gastrointestinal: Cholecystectomy Genitourinary: No Pertinent History Musculoskeletal: Amputation Male Surgical History: No Pertinent History Other Surgical History: cardiac ablation, 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 Significant Family History: no pertinent family hx (No family history pertaining to this admission reported) - Social History Smoking Status: Never smoker Exposure to second hand smoke: Yes Drug Use: none Patient Lives Alone: No - Social Determinants of Health Will the patient participate in the screening: Yes Do you worry about a steady place to live?: No Do you have any problems with any of the following?: No known problems In the past 12 months,have you had to go without utilities?: No Transportation Issues: No Has anyone in your support network made you feel unsafe?: No Have you or anyone in your house had to go without enough: No - Nursing Vital Signs Nursing Vital Signs: Initial Vital Signs Temperature 97.4 F 05/17/24 21:32 Pulse Rate 73 05/17/24 21:32 Respiratory Rate 18 05/17/24 21:32 Blood Pressure 87/59 05/17/24 21:32 O2 Sat by Pulse Oximetry 100 05/17/24 21:32 Pain Scale Pain Intensity 2 - Physical Exam General Appearance: no apparent distress, alert Respiratory Exam: normal breath sounds, lungs clear, airway intact, No chest tenderness, No respiratory distress Cardiovascular Exam: normal heart sounds, irregular, capillary refill <2 sec Extremity Exam: normal inspection, normal range of motion, amputations (multiple fingers on right hand amputated at PIP joint), other (anterior thigh muscular contractions appreciated during exam), No joint swelling Neurologic Exam: alert, oriented x 3, cooperative Skin Exam: normal color, warm, dry SpO2 Interpretation: normal SpO2: 100 O2 Delivery: Room Air - Course EKG Interpreted by Me: RATE (76), A-fib, Other (some peaking of T waves in V2, V3, V4; not suggestive of acute ischemia) Ordered Tests: Active Orders 24 hr Category Date Time Status EKG-ER Only STAT Care 05/17/24 21:51 Active CHEST 1 VIEW (PORTABLE) Stat Exams 05/17/24 21:52 Taken CBC W DIFF Stat Lab 05/17/24 22:10 Completed CK (IN-HOUSE) [CK-Creatinine Phosphokinase] Stat Lab 05/17/24 22:30 Completed CMP Stat Lab 05/17/24 22:10 Completed Lactic Acid Stat Lab 05/17/24 21:51 Completed NT PRO BNPII Stat Lab 05/17/24 22:30 Completed POCT GLUCOSE Stat Lab 05/17/24 21:36 Completed TROPONIN Q4H Lab 05/17/24 22:10 Completed TROPONIN Q4H Lab 05/18/24 00:33 Completed TROPONIN Q4H Lab 05/18/24 06:00 Ordered UA W/RFX UR CULTURE Stat Lab 05/17/24 22:55 Completed Respiratory Therapy Assessment DAILY RT 05/17/24 23:02 Active Medication Summary Generic Name Dose Route Start Last Admin Trade Name Freq PRN Reason Stop Dose Admin Gabapentin 100 mg 05/18/24 23:11 05/18/24 00:15 Gabapentin 100 Mg Capsule PO 05/18/24 23:12 100 mg STAT ONE Administration Sodium Chloride 1,000 mls @ 100 mls/hr 05/18/24 00:15 05/18/24 00:16 Sodium Chloride 0.9% 1000 Ml IV 06/17/24 00:14 100 mls/hr .Q10H JUAN Administration Discontinued Medications Generic Name Dose Route Start Last Admin Trade Name Freq PRN Reason Stop Dose Admin Albuterol Sulfate 2.5 mg 05/17/24 22:53 05/17/24 23:00 Albuterol Sulfate 2.5 Mg/3 Ml Neb IH 05/17/24 22:54 2.5 mg STAT ONE Administration Albuterol Sulfate Confirm 05/17/24 22:58 Albuterol Sulfate 2.5 Mg/3 Ml Neb Administered 05/17/24 22:59 Dose 2.5 mg IH .STK-MED ONE Cyclobenzaprine HCl 5 mg 05/17/24 22:13 05/17/24 22:25 Cyclobenzaprine Hcl 10 Mg Tablet PO 05/17/24 22:14 5 mg STAT ONE Administration Cyclobenzaprine HCl Confirm 05/17/24 22:22 Cyclobenzaprine Hcl 10 Mg Tablet Administered 05/17/24 22:23 Dose 10 mg .ROUTE .STK-MED ONE Gabapentin Confirm 05/18/24 00:12 Gabapentin 100 Mg Capsule Administered 05/18/24 00:13 Dose 100 mg .ROUTE .STK-MED ONE Sodium Chloride 500 mls @ 500 mls/hr 05/17/24 21:53 05/18/24 00:43 Sodium Chloride 0.9% 500 Ml IV 05/17/24 22:52 Infused .Q1H ONE Infusion Sodium Chloride Confirm 05/17/24 22:06 Sodium Chloride 0.9% 500 Ml Administered 05/17/24 22:07 Dose 500 mls @ ud IV .STK-MED ONE Insulin Human Lispro 10 unit 05/17/24 22:53 05/17/24 22:57 Insulin Lispro 1 Unit SQ 05/17/24 22:54 10 unit STAT ONE Administration Insulin Human Lispro Confirm 05/17/24 22:56 Insulin Lispro 1 Unit Administered 05/17/24 22:57 Dose 10 unit .ROUTE .STK-MED ONE Lab/Rad Data: Laboratory Result Diagrams 05/17/24 22:10 05/17/24 22:10 Laboratory Results 05/18/24 05/17/24 05/17/24 Range/Units 00:33 22:55 22:30 WBC (4.23-9.07) x10^3/uL RBC (4.63-6.08) x10^6/uL Hgb (13.7-17.5) g/dL Hct (40.1-51.0) % MCV (79.0-92.2) fL MCH (25.7-32.2) pg MCHC (32.3-36.5) g/dL RDW (11.6-14.4) % Plt Count (163-337) x10^3/uL MPV (9.4-12.4) fL Gran % (34.0-67.9) % Immature Gran % (Auto) (0.001-0.429) % Nucleat RBC Rel Count (0.00-0.2) % Eos # (Auto) (0.04-0.54) x10^3/uL Immature Gran # (Auto) (0.001-0.031) x10^3u/L Absolute Lymphs (auto) (1.32-3.57) x10^3/uL Absolute Monos (auto) (0.30-0.82) x10^3/uL Absolute Nucleated RBC (0.00-0.012) x10^3u/L Lymphocytes % (21.8-53.1) % Monocytes % (5.3-12.2) % Eosinophils % (0.8-7.0) % Basophils % (0.2-1.2) % Absolute Granulocytes (1.78-5.38) x10^3/uL Basophils # (0.01-0.08) x10^3/uL Sodium (135-145) mmol/L Potassium (3.5-5.1) mmol/L Chloride (98-107) mmol/L Carbon Dioxide (22-30) mmol/L Anion Gap (5-15) MEQ/L BUN (9-20) mg/dL Creatinine (0.66-1.25) mg/dL Estimated GFR ML/MIN Glucose (74-106) mg/dL POC Glucometer (74 to 106) mg/dL Lactic Acid (0.4-2.0) Calcium (8.4-10.2) mg/dL Total Bilirubin (0.2-1.3) mg/dL AST (17-59) U/L ALT (0-50) U/L Alkaline Phosphatase (38-126) U/L Creatine Kinase 144 (55-170) U/L Troponin I 0.113 H* (0.000-0.033) ng/mL NT-Pro-B Natriuret Pep (<300) pg/mL Serum Total Protein (6.3-8.2) g/dL Albumin (3.5-5.0) g/dL Urine Color Yellow (Yellow) Urine Appearance Clear (Clear) Urine pH 5.5 (4.6-8.0) Ur Specific [place] 1.015 (1.005-1.030) Urine Protein 100 A (Negative) Urine Glucose (UA) >=1000 A (Negative) mg/dL Urine Ketones Negative (Negative) Urine Blood Negative (Negative) Urine Nitrite Negative (Negative) Urine Bilirubin Negative (Negative) Urine Urobilinogen 0.2 (0.2) mg/dL Ur Leukocyte Esterase Negative (Negative) U Hyaline Cast (Auto) NONE SEEN (0-2) /LPF Urine Microscopic RBC 0-2 (0-5) /HPF Urine Microscopic WBC 0-2 (0-5) /HPF Ur Epithelial Cells None Seen (None Seen) /HPF Urine Bacteria None Seen (None Seen) /HPF Urine Culture Reflexed NO (NO) 05/17/24 05/17/24 05/17/24 Range/Units 22:30 22:10 22:10 WBC (4.23-9.07) x10^3/uL RBC (4.63-6.08) x10^6/uL Hgb (13.7-17.5) g/dL Hct (40.1-51.0) % MCV (79.0-92.2) fL MCH (25.7-32.2) pg MCHC (32.3-36.5) g/dL RDW (11.6-14.4) % Plt Count (163-337) x10^3/uL MPV (9.4-12.4) fL Gran % (34.0-67.9) % Immature Gran % (Auto) (0.001-0.429) % Nucleat RBC Rel Count (0.00-0.2) % Eos # (Auto) (0.04-0.54) x10^3/uL Immature Gran # (Auto) (0.001-0.031) x10^3u/L Absolute Lymphs (auto) (1.32-3.57) x10^3/uL Absolute Monos (auto) (0.30-0.82) x10^3/uL Absolute Nucleated RBC (0.00-0.012) x10^3u/L Lymphocytes % (21.8-53.1) % Monocytes % (5.3-12.2) % Eosinophils % (0.8-7.0) % Basophils % (0.2-1.2) % Absolute Granulocytes (1.78-5.38) x10^3/uL Basophils # (0.01-0.08) x10^3/uL Sodium 128 L (135-145) mmol/L Potassium 5.6 H D (3.5-5.1) mmol/L Chloride 92 L (98-107) mmol/L Carbon Dioxide 28 (22-30) mmol/L Anion Gap 14.1 (5-15) MEQ/L BUN 46 H (9-20) mg/dL Creatinine 1.53 H (0.66-1.25) mg/dL Estimated GFR 50.1 ML/MIN Glucose 409 H (74-106) mg/dL POC Glucometer (74 to 106) mg/dL Lactic Acid (0.4-2.0) Calcium 8.8 (8.4-10.2) mg/dL Total Bilirubin 0.90 (0.2-1.3) mg/dL AST 32 (17-59) U/L ALT 37 (0-50) U/L Alkaline Phosphatase 150 H (38-126) U/L Creatine Kinase (55-170) U/L Troponin I 0.114 H* (0.000-0.033) ng/mL NT-Pro-B Natriuret Pep 8290 (<300) pg/mL Serum Total Protein 7.0 (6.3-8.2) g/dL Albumin 3.9 (3.5-5.0) g/dL Urine Color (Yellow) Urine Appearance (Clear) Urine pH (4.6-8.0) Ur Specific [place] (1.005-1.030) Urine Protein (Negative) Urine Glucose (UA) (Negative) mg/dL Urine Ketones (Negative) Urine Blood (Negative) Urine Nitrite (Negative) Urine Bilirubin (Negative) Urine Urobilinogen (0.2) mg/dL Ur Leukocyte Esterase (Negative) U Hyaline Cast (Auto) (0-2) /LPF Urine Microscopic RBC (0-5) /HPF Urine Microscopic WBC (0-5) /HPF Ur Epithelial Cells (None Seen) /HPF Urine Bacteria (None Seen) /HPF Urine Culture Reflexed (NO) 05/17/24 05/17/24 05/17/24 Range/Units 22:10 21:51 21:36 WBC 6.4 (4.23-9.07) x10^3/uL RBC 4.07 L (4.63-6.08) x10^6/uL Hgb 11.4 L (13.7-17.5) g/dL Hct 34.2 L (40.1-51.0) % MCV 84.0 (79.0-92.2) fL MCH 28.0 (25.7-32.2) pg MCHC 33.3 (32.3-36.5) g/dL RDW 15.2 H (11.6-14.4) % Plt Count 279 (163-337) x10^3/uL MPV 10.6 (9.4-12.4) fL Gran % 66.4 (34.0-67.9) % Immature Gran % (Auto) 0.3 (0.001-0.429) % Nucleat RBC Rel Count 0.0 (0.00-0.2) % Eos # (Auto) 0.06 (0.04-0.54) x10^3/uL Immature Gran # (Auto) 0.02 (0.001-0.031) x10^3u/L Absolute Lymphs (auto) 1.66 (1.32-3.57) x10^3/uL Absolute Monos (auto) 0.36 (0.30-0.82) x10^3/uL Absolute Nucleated RBC 0.00 (0.00-0.012) x10^3u/L Lymphocytes % 25.9 (21.8-53.1) % Monocytes % 5.6 (5.3-12.2) % Eosinophils % 0.9 (0.8-7.0) % Basophils % 0.9 (0.2-1.2) % Absolute Granulocytes 4.24 (1.78-5.38) x10^3/uL Basophils # 0.06 (0.01-0.08) x10^3/uL Sodium (135-145) mmol/L Potassium (3.5-5.1) mmol/L Chloride (98-107) mmol/L Carbon Dioxide (22-30) mmol/L Anion Gap (5-15) MEQ/L BUN (9-20) mg/dL Creatinine (0.66-1.25) mg/dL Estimated GFR ML/MIN Glucose (74-106) mg/dL POC Glucometer 380 H (74 to 106) mg/dL Lactic Acid 1.0 (0.4-2.0) Calcium (8.4-10.2) mg/dL Total Bilirubin (0.2-1.3) mg/dL AST (17-59) U/L ALT (0-50) U/L Alkaline Phosphatase (38-126) U/L Creatine Kinase (55-170) U/L Troponin I (0.000-0.033) ng/mL NT-Pro-B Natriuret Pep (<300) pg/mL Serum Total Protein (6.3-8.2) g/dL Albumin (3.5-5.0) g/dL Urine Color (Yellow) Urine Appearance (Clear) Urine pH (4.6-8.0) Ur Specific [place] (1.005-1.030) Urine Protein (Negative) Urine Glucose (UA) (Negative) mg/dL Urine Ketones (Negative) Urine Blood (Negative) Urine Nitrite (Negative) Urine Bilirubin (Negative) Urine Urobilinogen (0.2) mg/dL Ur Leukocyte Esterase (Negative) U Hyaline Cast (Auto) (0-2) /LPF Urine Microscopic RBC (0-5) /HPF Urine Microscopic WBC (0-5) /HPF Ur Epithelial Cells (None Seen) /HPF Urine Bacteria (None Seen) /HPF Urine Culture Reflexed (NO) 05/17/24 Range/Units 00:33 WBC (4.23-9.07) x10^3/uL RBC (4.63-6.08) x10^6/uL Hgb (13.7-17.5) g/dL Hct (40.1-51.0) % MCV (79.0-92.2) fL MCH (25.7-32.2) pg MCHC (32.3-36.5) g/dL RDW (11.6-14.4) % Plt Count (163-337) x10^3/uL MPV (9.4-12.4) fL Gran % (34.0-67.9) % Immature Gran % (Auto) (0.001-0.429) % Nucleat RBC Rel Count (0.00-0.2) % Eos # (Auto) (0.04-0.54) x10^3/uL Immature Gran # (Auto) (0.001-0.031) x10^3u/L Absolute Lymphs (auto) (1.32-3.57) x10^3/uL Absolute Monos (auto) (0.30-0.82) x10^3/uL Absolute Nucleated RBC (0.00-0.012) x10^3u/L Lymphocytes % (21.8-53.1) % Monocytes % (5.3-12.2) % Eosinophils % (0.8-7.0) % Basophils % (0.2-1.2) % Absolute Granulocytes (1.78-5.38) x10^3/uL Basophils # (0.01-0.08) x10^3/uL Sodium 134 L (135-145) mmol/L Potassium 4.6 (3.5-5.1) mmol/L Chloride 97 L (98-107) mmol/L Carbon Dioxide 27 (22-30) mmol/L Anion Gap 14.1 (5-15) MEQ/L BUN 47 H (9-20) mg/dL Creatinine 1.66 H (0.66-1.25) mg/dL Estimated GFR 45.5 ML/MIN Glucose 195 H (74-106) mg/dL POC Glucometer (74 to 106) mg/dL Lactic Acid (0.4-2.0) Calcium 8.8 (8.4-10.2) mg/dL Total Bilirubin (0.2-1.3) mg/dL AST (17-59) U/L ALT (0-50) U/L Alkaline Phosphatase (38-126) U/L Creatine Kinase (55-170) U/L Troponin I (0.000-0.033) ng/mL NT-Pro-B Natriuret Pep (<300) pg/mL Serum Total Protein (6.3-8.2) g/dL Albumin (3.5-5.0) g/dL Urine Color (Yellow) Urine Appearance (Clear) Urine pH (4.6-8.0) Ur Specific [place] (1.005-1.030) Urine Protein (Negative) Urine Glucose (UA) (Negative) mg/dL Urine Ketones (Negative) Urine Blood (Negative) Urine Nitrite (Negative) Urine Bilirubin (Negative) Urine Urobilinogen (0.2) mg/dL Ur Leukocyte Esterase (Negative) U Hyaline Cast (Auto) (0-2) /LPF Urine Microscopic RBC (0-5) /HPF Urine Microscopic WBC (0-5) /HPF Ur Epithelial Cells (None Seen) /HPF Urine Bacteria (None Seen) /HPF Urine Culture Reflexed (NO) - Progress Progress: improved Progress Note: 05/18/24 01:42 pt received 750ml NS, 5mg flexiril, 100mg gabapentin Cr >1.6 Na 128 on arrival, improved to 134 following fluids K 5.6 on arrival w/ minimal peak T waves in lateral leads, given 10u lispro, albuterol nebulizer w/ improvement to 4.8 BNP elevated > 8000 trops trended 0.114 -- 0.113 pt continues to have muscle spasms in lower extremity I discussed pt case w/ hospitalist Dr Hernandez regarding likely need for continued fluid management Dr Hernandez is willing to accept pt for observation Counseled pt/family regarding: lab results, diagnosis, need for follow-up Medical Desision Making - Diagnostic Testing Diagnostic test were ordered, analyzed, and reviewed by me: Yes Radiological Interpretation: Interpreted by me, Reviewed by me - Risk of complications Minimal Risk: Minimal risk of morbidity The pt has a high risk of morbidity or mortality based on: Decision regarding hospitilization or escalation of hosp level of care - Departure Departure Disposition: Observation Clinical Impression: Acute exacerbation of CHF (congestive heart failure), Acute kidney injury superimposed on CKD, Muscle spasm of both lower legs, Elevated troponin, Hyponatremia Condition: Good Critical Care Time: No
[2024-05-17] MEDS ORDERED: Sodium Chloride 0.9% 500 ML 500 ML IV ONE (22:06)
[2024-05-17] MEDS: Sodium Chloride 0.9% 500 ML 500 ML IV ONE (22:08)
[2024-05-17] MEDS ORDERED: Cyclobenzaprine 10 MG ONE (22:22)
[2024-05-17 22:23] LABS: Absolute Neutrophil Ct (ANC) 4.24 x10^3/uL (1.78-5.38); BASOPHIL % 0.9 % (0.2-1.2); Basophil (Absolute #) 0.06 x10^3/uL (0.01-0.08); Eosinophil % 0.9 % (0.8-7.0); Eosinophil (Absolute #) 0.06 x10^3/uL (0.04-0.54); Hematocrit 34.2 % (40.1-51.0); Hemoglobin 11.4 g/dL (13.7-17.5); IMMATURE GRAN # 0.02 x10^3u/L (0.001-0.031); IMMATURE GRAN % 0.3 % (0.001-0.429); Lymphocyte (Absolute #) 1.66 x10^3/uL (1.32-3.57); Lymphocytes % 25.9 % (21.8-53.1); Mean Corpuscular Hgb Concent. 33.3 g/dL (32.3-36.5); Mean Platelet Volume 10.6 fL (9.4-12.4); Monocyte (Absolute #) 0.36 x10^3/uL (0.30-0.82); Monocytes % 5.6 % (5.3-12.2); Neutrophil % 66.4 % (34.0-67.9); Platelet Count 279 x10^3/uL (163-337); Red Blood Count 4.07 x10^6/uL (4.63-6.08); Red Cell Distribution Width 15.2 % (11.6-14.4); White Blood Count 6.4 x10^3/uL (4.23-9.07)
[2024-05-17] MEDS: Cyclobenzaprine 10 MG PO ONE (22:25)
[2024-05-17 22:38] LABS: ALBUMIN 3.9 g/dL (3.5-5.0); ANION GAP 14.1 MEQ/L (5-15); BILIRUBIN,TOTAL 0.9 mg/dL (0.2-1.3); Calcium 8.8 mg/dL (8.4-10.2); Creatinine 1 1.53 mg/dL (0.66-1.25); EST GLOMERULAR FILTRATION RATE 50.1 ML/MIN; Potassium 5.6 mmol/L (3.5-5.1)
[2024-05-17] MEDS ORDERED: HUMALOG ONE (22:56)
[2024-05-17] MEDS: HUMALOG SQ ONE (22:57)
[2024-05-17] MEDS ORDERED: PROVENTIL 2.5 MG/3 ML NEB IH ONE (22:58)
[2024-05-17] MEDS: PROVENTIL 2.5 MG/3 ML NEB IH ONE (23:00)
[2024-05-17 23:26] LABS: Appearance Clear (Clear); Bacteria None Seen /HPF (None Seen); Bilirubin Negative (Negative); Blood Negative (Negative); Epithelial Cells None Seen /HPF (None Seen); Glucose, Urine >=1000 mg/dL (Negative); Hyaline Casts NONE SEEN /LPF (0-2); Ketones Negative (Negative); Leukocyte Esterase Negative (Negative); Nitrite Negative (Negative); Ph 5.5 (4.6-8.0); Protein,Urine Dip 100 (Negative); RBC 0-2 /HPF (0-5); Specific Gravity 1.015 (1.005-1.030); Urobilinogen 0.2 mg/dL (0.2); WBC 0-2 /HPF (0-5)
[2024-05-17 23:29] LABS: ADD URINE CULTURE? NO (NO)
[2024-05-18] MEDS ORDERED: Neurontin ONE (00:12)
[2024-05-18] MEDS ORDERED: Sodium Chloride 0.9% 1000 ML 1,000 ML ONE (00:14)
[2024-05-18] MEDS: Neurontin PO ONE (00:15)
[2024-05-18] MEDS: Sodium Chloride 0.9% 1000 ML 1,000 ML IV SCH ×2 (00:16→05:45)
[2024-05-18 00:44] LABS: ANION GAP 14.1 MEQ/L (5-15); Calcium 8.8 mg/dL (8.4-10.2); Creatinine 1 1.66 mg/dL (0.66-1.25); EST GLOMERULAR FILTRATION RATE 45.5 ML/MIN; Potassium 4.6 mmol/L (3.5-5.1)
--- NOTE | 2024-05-18 04:53 | PCM.HP ---
History of Present Illness - Chief Complaint Chief Complaint: CHF Date: 05/18/24 History of Present Illness: 63 years old very pleasant male with past medical history significant for hypertension, congestive heart failure with ejection fraction 33%, insulin- dependent diabetes mellitus, prior history of stroke without any residual deficit, chronic atrial fibrillation status post pacemaker on Eliquis, came to the ER complaining of muscle spasm in bilateral lower extremity that is been there since yesterday. Patient felt extreme fatigue and Restless. He did complain of dizziness as well. He denied any chest pain shortness of breath no lower extremity swelling or weight gain. No nausea vomiting diarrhea. No fever cough congestion reported. In the ER blood pressure was running low with systolic 87/59. As far as blood workup concern it was significant with low sodium 128 potassium 5.7 creatinine 1.62. Urine was completely unremarkable. Patient admitted for lower extremity cramps in the setting of electrolyte abnormality. He was given 700 cc normal saline 1 dose of 100 mg gabapentin and admitted for symptom management, - Review of Systems All Other Systems: Reviewed and Negative (14 systems reviewed and marked ve except mentioned in [facility]) Medications & Allergies Home Medications: Home Medication List Duloxetine HCl [Cymbalta] 60 mg PO BID 07/28/23 [History Confirmed 05/18/24] Insulin Glargine [Lantus Insulin] 50 unit SQ DAILY 07/28/23 [History Confirmed 05/18/24] Ropinirole 2Mg [Requip 2Mg Tab] 2 mg PO HS 07/28/23 [History Confirmed 05/18/24] Apixaban [Eliquis 2.5 mg Tablet] 5 mg PO BID 30 Days #60 tablet 07/30/23 [Rx Confirmed 05/18/24] Spironolactone 25 mg [Aldactone 25 MG] 25 mg PO DAILY 30 Days #30 tablet 07/30/23 [Rx Confirmed 05/18/24] Furosemide 40 mg [Lasix 40 MG] 40 mg PO DAILY 30 Days #30 tablet 07/31/23 [Rx Confirmed 05/18/24] Potassium Chloride 20 meq PO DAILY 10/16/23 [History Confirmed 05/18/24] Empagliflozin [Jardiance] 25 mg PO DAILY 01/29/24 [History Confirmed 05/18/24] Atorvastatin Calcium [Lipitor 40Mg] 40 mg PO HS 30 Days #30 tablet 02/26/24 [Rx Confirmed 05/18/24] Carvedilol 12.5 mg [Coreg 12.5 mg] 12.5 mg PO BID 30 Days #60 tablet 02/26/24 [Rx Confirmed 05/18/24] Gabapentin [Neurontin ] 100 mg PO TID 30 Days #90 cap 02/26/24 [Rx Confirmed 05/18/24] Insulin Lispro [Humalog] 3 unit SQ TIDWM 30 Days #100 units 02/26/24 [Rx Confirmed 05/18/24] Lisinopril 10 mg [Zestril 10 MG] 10 mg PO DAILY 30 Days #30 tablet 02/26/24 [Rx Confirmed 05/18/24] Omeprazole 40 mg PO DAILY PRN 30 Days #30 cap 02/26/24 [Rx Confirmed 05/18/24] Trazodone HCl 50 mg [Desyrel 50 mg] 50 mg PO HS PRN 30 Days #30 tablet 02/26/24 [Rx Confirmed 05/18/24] Insulin Lispro [Humalog] 0 unit SQ ACHS 05/07/24 [History Confirmed 05/18/24] Allergies/Adverse Reactions: Allergies Allergy/AdvReac Type Severity Reaction Status Date / Time diphenhydramine Allergy Difficulty Verified 05/18/24 02:42 [From Benadryl] Breathing Iodinated Contrast Media Allergy Difficulty Verified 05/18/24 02:42 Breathing - Past Medical History Past Medical History: Yes Neurological History: Peripheral Neuropathy, Stroke ENT History: Cataracts Cardiac History: Arrhythmia, Congestive Heart Failure, High Cholesterol, Hypertension Respiratory History: Bronchitis, CHF, COPD, Sleep Apnea Endocrine Medical History: Diabetes Type II Musculoskelatal History: Arthritis, Osteoarthritis, Other GI Medical History: GERD, Gallbladder Disease History: Renal Disease Pyscho-Social History: Anxiety, Depression Male Reproductive Disorders: No Pertinent History Comment: a.fib, restless leg, bulging discs cervical spine, carpal tunnel - Past Surgical History Past Surgical History: Yes Neuro Surgical History: No Pertinent History Cardiac History: Pacemaker Respiratory Surgery: No Pertinent History GI Surgical History: Cholecystectomy Genitourinary Surgical Hx: No Pertinent History Musculskeletal Surgical Hx: Amputation Male Surgical History: No Pertinent History Other Surgical History: cardiac ablation, 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 Right hand 1st/2nd partial amputations Significant Family History: no pertinent family hx (No family history pertaining to this admission reported) - Social History Smoking Status: Never smoker Exposure to second hand smoke: Yes Alcohol: None Drug Use: none - Social Determinants of Health Will the patient participate in the screening: Yes Do you worry about a steady place to live?: No Do you have any problems with any of the following?: No known problems In the past 12 months,have you had to go without utilities?: No Have you or anyone in your house had to go without enough: No Transportation Issues: No Has anyone in your support network made you feel unsafe?: No Does the patient want assistance with any of the above?: No Comment: pt has no running water, would like assistance - Physical Exam Vital Signs: Vital Signs - 24 hr Temp Pulse Resp BP BP Pulse Ox 05/18/24 02:50 96.8 F 74 18 93/58 98 05/18/24 02:00 92/50 100 05/18/24 01:50 100 05/18/24 01:33 78/35 100 05/18/24 01:30 90/52 100 05/18/24 00:30 93/70 100 05/18/24 00:02 79 87/47 99 05/17/24 23:30 74 92/61 99 05/17/24 23:17 78 106/48 98 05/17/24 23:03 75 18 100 05/17/24 23:01 79 80/56 100 05/17/24 22:31 75 18 104/58 98 05/17/24 22:01 74 82/56 05/17/24 21:32 97.4 F 73 18 87/59 100 Additional Findings: 05/18/24 05:12 HEENTMiddle aged, average built in distress/Restless due to ongoing LE muscle spasms NECK Supple,no thyromegaly, CVS S1+S2 + 0, no murmers RESP Bilateral equal air entry without Crepts/Wheezes heard GIT Soft non tender,non distended Skin, No rah, no Bruises LEGS No Edema PSYCH Normal,mood, judgement and insight NEURO AOX3, no focal deficit Results - Labs Lab/Micro Results: Lab Results-Last 24 Hours 05/17/24 05/17/24 05/17/24 Range/Units 21:36 21:51 22:10 WBC 6.4 (4.23-9.07) x10^3/uL RBC 4.07 L (4.63-6.08) x10^6/uL Hgb 11.4 L (13.7-17.5) g/dL Hct 34.2 L (40.1-51.0) % MCV 84.0 (79.0-92.2) fL MCH 28.0 (25.7-32.2) pg MCHC 33.3 (32.3-36.5) g/dL RDW 15.2 H (11.6-14.4) % Plt Count 279 (163-337) x10^3/uL MPV 10.6 (9.4-12.4) fL Gran % 66.4 (34.0-67.9) % Immature Gran % (Auto) 0.3 (0.001-0.429) % Nucleat RBC Rel Count 0.0 (0.00-0.2) % Eos # (Auto) 0.06 (0.04-0.54) x10^3/uL Immature Gran # (Auto) 0.02 (0.001-0.031) x10^3u/L Absolute Lymphs (auto) 1.66 (1.32-3.57) x10^3/uL Absolute Monos (auto) 0.36 (0.30-0.82) x10^3/uL Absolute Nucleated RBC 0.00 (0.00-0.012) x10^3u/L Lymphocytes % 25.9 (21.8-53.1) % Monocytes % 5.6 (5.3-12.2) % Eosinophils % 0.9 (0.8-7.0) % Basophils % 0.9 (0.2-1.2) % Absolute Granulocytes 4.24 (1.78-5.38) x10^3/uL Basophils # 0.06 (0.01-0.08) x10^3/uL Sodium (135-145) mmol/L Potassium (3.5-5.1) mmol/L Chloride (98-107) mmol/L Carbon Dioxide (22-30) mmol/L Anion Gap (5-15) MEQ/L BUN (9-20) mg/dL Creatinine (0.66-1.25) mg/dL Estimated GFR ML/MIN Glucose (74-106) mg/dL POC Glucometer 380 H (74 to 106) mg/dL Lactic Acid 1.0 (0.4-2.0) Calcium (8.4-10.2) mg/dL Total Bilirubin (0.2-1.3) mg/dL AST (17-59) U/L ALT (0-50) U/L Alkaline Phosphatase (38-126) U/L Creatine Kinase (55-170) U/L Troponin I (0.000-0.033) ng/mL NT-Pro-B Natriuret Pep (<300) pg/mL Serum Total Protein (6.3-8.2) g/dL Albumin (3.5-5.0) g/dL Urine Color (Yellow) Urine Appearance (Clear) Urine pH (4.6-8.0) Ur Specific Rowe (1.005-1.030) Urine Protein (Negative) Urine Glucose (UA) (Negative) mg/dL Urine Ketones (Negative) Urine Blood (Negative) Urine Nitrite (Negative) Urine Bilirubin (Negative) Urine Urobilinogen (0.2) mg/dL Ur Leukocyte Esterase (Negative) U Hyaline Cast (Auto) (0-2) /LPF Urine Microscopic RBC (0-5) /HPF Urine Microscopic WBC (0-5) /HPF Ur Epithelial Cells (None Seen) /HPF Urine Bacteria (None Seen) /HPF Urine Culture Reflexed (NO) 05/17/24 05/17/24 05/17/24 Range/Units 22:10 22:10 22:30 WBC (4.23-9.07) x10^3/uL RBC (4.63-6.08) x10^6/uL Hgb (13.7-17.5) g/dL Hct (40.1-51.0) % MCV (79.0-92.2) fL MCH (25.7-32.2) pg MCHC (32.3-36.5) g/dL RDW (11.6-14.4) % Plt Count (163-337) x10^3/uL MPV (9.4-12.4) fL Gran % (34.0-67.9) % Immature Gran % (Auto) (0.001-0.429) % Nucleat RBC Rel Count (0.00-0.2) % Eos # (Auto) (0.04-0.54) x10^3/uL Immature Gran # (Auto) (0.001-0.031) x10^3u/L Absolute Lymphs (auto) (1.32-3.57) x10^3/uL Absolute Monos (auto) (0.30-0.82) x10^3/uL Absolute Nucleated RBC (0.00-0.012) x10^3u/L Lymphocytes % (21.8-53.1) % Monocytes % (5.3-12.2) % Eosinophils % (0.8-7.0) % Basophils % (0.2-1.2) % Absolute Granulocytes (1.78-5.38) x10^3/uL Basophils # (0.01-0.08) x10^3/uL Sodium 128 L (135-145) mmol/L Potassium 5.6 H (3.5-5.1) mmol/L Chloride 92 L (98-107) mmol/L Carbon Dioxide 28 (22-30) mmol/L Anion Gap 14.1 (5-15) MEQ/L BUN 46 H (9-20) mg/dL Creatinine 1.53 H (0.66-1.25) mg/dL Estimated GFR 50.1 ML/MIN Glucose 409 H (74-106) mg/dL POC Glucometer (74 to 106) mg/dL Lactic Acid (0.4-2.0) Calcium 8.8 (8.4-10.2) mg/dL Total Bilirubin 0.90 (0.2-1.3) mg/dL AST 32 (17-59) U/L ALT 37 (0-50) U/L Alkaline Phosphatase 150 H (38-126) U/L Creatine Kinase (55-170) U/L Troponin I 0.114 H* (0.000-0.033) ng/mL NT-Pro-B Natriuret Pep 8290 (<300) pg/mL Serum Total Protein 7.0 (6.3-8.2) g/dL Albumin 3.9 (3.5-5.0) g/dL Urine Color (Yellow) Urine Appearance (Clear) Urine pH (4.6-8.0) Ur Specific Rowe (1.005-1.030) Urine Protein (Negative) Urine Glucose (UA) (Negative) mg/dL Urine Ketones (Negative) Urine Blood (Negative) Urine Nitrite (Negative) Urine Bilirubin (Negative) Urine Urobilinogen (0.2) mg/dL Ur Leukocyte Esterase (Negative) U Hyaline Cast (Auto) (0-2) /LPF Urine Microscopic RBC (0-5) /HPF Urine Microscopic WBC (0-5) /HPF Ur Epithelial Cells (None Seen) /HPF Urine Bacteria (None Seen) /HPF Urine Culture Reflexed (NO) 05/17/24 05/17/24 05/17/24 Range/Units 22:30 22:55 23:55 WBC (4.23-9.07) x10^3/uL RBC (4.63-6.08) x10^6/uL Hgb (13.7-17.5) g/dL Hct (40.1-51.0) % MCV (79.0-92.2) fL MCH (25.7-32.2) pg MCHC (32.3-36.5) g/dL RDW (11.6-14.4) % Plt Count (163-337) x10^3/uL MPV (9.4-12.4) fL Gran % (34.0-67.9) % Immature Gran % (Auto) (0.001-0.429) % Nucleat RBC Rel Count (0.00-0.2) % Eos # (Auto) (0.04-0.54) x10^3/uL Immature Gran # (Auto) (0.001-0.031) x10^3u/L Absolute Lymphs (auto) (1.32-3.57) x10^3/uL Absolute Monos (auto) (0.30-0.82) x10^3/uL Absolute Nucleated RBC (0.00-0.012) x10^3u/L Lymphocytes % (21.8-53.1) % Monocytes % (5.3-12.2) % Eosinophils % (0.8-7.0) % Basophils % (0.2-1.2) % Absolute Granulocytes (1.78-5.38) x10^3/uL Basophils # (0.01-0.08) x10^3/uL Sodium 134 L (135-145) mmol/L Potassium 4.6 (3.5-5.1) mmol/L Chloride 97 L (98-107) mmol/L Carbon Dioxide 27 (22-30) mmol/L Anion Gap 14.1 (5-15) MEQ/L BUN 47 H (9-20) mg/dL Creatinine 1.66 H (0.66-1.25) mg/dL Estimated GFR 45.5 ML/MIN Glucose 195 H (74-106) mg/dL POC Glucometer (74 to 106) mg/dL Lactic Acid (0.4-2.0) Calcium 8.8 (8.4-10.2) mg/dL Total Bilirubin (0.2-1.3) mg/dL AST (17-59) U/L ALT (0-50) U/L Alkaline Phosphatase (38-126) U/L Creatine Kinase 144 (55-170) U/L Troponin I (0.000-0.033) ng/mL NT-Pro-B Natriuret Pep (<300) pg/mL Serum Total Protein (6.3-8.2) g/dL Albumin (3.5-5.0) g/dL Urine Color Yellow (Yellow) Urine Appearance Clear (Clear) Urine pH 5.5 (4.6-8.0) Ur Specific Rowe 1.015 (1.005-1.030) Urine Protein 100 A (Negative) Urine Glucose (UA) >=1000 A (Negative) mg/dL Urine Ketones Negative (Negative) Urine Blood Negative (Negative) Urine Nitrite Negative (Negative) Urine Bilirubin Negative (Negative) Urine Urobilinogen 0.2 (0.2) mg/dL Ur Leukocyte Esterase Negative (Negative) U Hyaline Cast (Auto) NONE SEEN (0-2) /LPF Urine Microscopic RBC 0-2 (0-5) /HPF Urine Microscopic WBC 0-2 (0-5) /HPF Ur Epithelial Cells None Seen (None Seen) /HPF Urine Bacteria None Seen (None Seen) /HPF Urine Culture Reflexed NO (NO) 05/18/24 05/18/24 Range/Units 00:33 02:57 WBC (4.23-9.07) x10^3/uL RBC (4.63-6.08) x10^6/uL Hgb (13.7-17.5) g/dL Hct (40.1-51.0) % MCV (79.0-92.2) fL MCH (25.7-32.2) pg MCHC (32.3-36.5) g/dL RDW (11.6-14.4) % Plt Count (163-337) x10^3/uL MPV (9.4-12.4) fL Gran % (34.0-67.9) % Immature Gran % (Auto) (0.001-0.429) % Nucleat RBC Rel Count (0.00-0.2) % Eos # (Auto) (0.04-0.54) x10^3/uL Immature Gran # (Auto) (0.001-0.031) x10^3u/L Absolute Lymphs (auto) (1.32-3.57) x10^3/uL Absolute Monos (auto) (0.30-0.82) x10^3/uL Absolute Nucleated RBC (0.00-0.012) x10^3u/L Lymphocytes % (21.8-53.1) % Monocytes % (5.3-12.2) % Eosinophils % (0.8-7.0) % Basophils % (0.2-1.2) % Absolute Granulocytes (1.78-5.38) x10^3/uL Basophils # (0.01-0.08) x10^3/uL Sodium (135-145) mmol/L Potassium (3.5-5.1) mmol/L Chloride (98-107) mmol/L Carbon Dioxide (22-30) mmol/L Anion Gap (5-15) MEQ/L BUN (9-20) mg/dL Creatinine (0.66-1.25) mg/dL Estimated GFR ML/MIN Glucose (74-106) mg/dL POC Glucometer 102 (74 to 106) mg/dL Lactic Acid (0.4-2.0) Calcium (8.4-10.2) mg/dL Total Bilirubin (0.2-1.3) mg/dL AST (17-59) U/L ALT (0-50) U/L Alkaline Phosphatase (38-126) U/L Creatine Kinase (55-170) U/L Troponin I 0.113 H* (0.000-0.033) ng/mL NT-Pro-B Natriuret Pep (<300) pg/mL Serum Total Protein (6.3-8.2) g/dL Albumin (3.5-5.0) g/dL Urine Color (Yellow) Urine Appearance (Clear) Urine pH (4.6-8.0) Ur Specific Rowe (1.005-1.030) Urine Protein (Negative) Urine Glucose (UA) (Negative) mg/dL Urine Ketones (Negative) Urine Blood (Negative) Urine Nitrite (Negative) Urine Bilirubin (Negative) Urine Urobilinogen (0.2) mg/dL Ur Leukocyte Esterase (Negative) U Hyaline Cast (Auto) (0-2) /LPF Urine Microscopic RBC (0-5) /HPF Urine Microscopic WBC (0-5) /HPF Ur Epithelial Cells (None Seen) /HPF Urine Bacteria (None Seen) /HPF Urine Culture Reflexed (NO) - Radiology Impressions Radiology Exams & Impressions: Radiology Procedures Category Date Time Status CHEST 1 VIEW (PORTABLE) Stat Exams 05/17/24 21:52 Taken - Other Procedures and Tests Respiratory Therapy 05/17/24 23:02 Respiratory Therapy Assessment DAILY Assessment/Plan (1) Hyponatremia Current Visit: Yes Status: Acute Code(s): E87.1 - HYPO-OSMOLALITY AND HYPONATREMIA (2) Muscle spasm of both lower legs Current Visit: Yes Status: Acute Code(s): M62.838 - OTHER MUSCLE SPASM (3) Elevated troponin Current Visit: Yes Status: Acute Code(s): R79.89 - OTHER SPECIFIED ABNORMAL FINDINGS OF BLOOD CHEMISTRY (4) Chronic a-fib Current Visit: No Status: Acute Code(s): I48.20 - CHRONIC ATRIAL FIBRILLATION, UNSPECIFIED (5) HTN (hypertension) Current Visit: No Status: Acute Code(s): I10 - ESSENTIAL (PRIMARY) HYPERTENSION (6) Hyperkalemia Current Visit: No Status: Acute Code(s): E87.5 - HYPERKALEMIA Telemedicine Encounter - Telemedicine Encounter Telemedicine Encounter: The entirety of this encounter was performed via TelemedicineThis visit was performed using real-time audio and video connection between my location and thepatients locationwith the assistance of a surrogateat the patients location. Written or verbal consent was obtained from the patient/guardian to perform this visit using[employer] technology. Any patient questions regarding the telemedicine interaction were answered. Muscle cramps Bilateral lower extremities Seems due to ongoing electrolyte derangement CK checked within normal range 144 Will continue gabapentin Will start hydrocodone as per need for pain Hyponatremia Seems hypovolemic hyponatremia Sodium at 128 will check serum osmolarity He received 700 cc in ER followed by improvement in sodium to 134 I will continue normal saline 70 cc overnight with close monitoring. Keep holding all diuretcs for now Hyperkalemia Initial potassium was 5.7 After hyperkalemic protocol in ER it got improved to 4.8 I will recheck it Acute kidney injury Baseline creatinine 1.1-1.2 Creatinine upon admission 1.6 Continue normal saline at 75 cc overnight only Will Check Cr in am Keep avoiding nephrotoxins Chronic systolic congestive heart failure Ejection fraction back in 2022 was 33% Patient is clinically dry at this time He follows up cardiology regularly Will resume all home meds except diuretics and beta-[place] due to MARILU and low blood pressure Dizziness Seems due to ongoing very soft blood pressure After fluid in ER it got improved patient is no more dizzy I will keep monitoring him on telemetry Continue fluids at 70 cc overnight Elevated Troponin/elevated BNP Without any chest pain or shortness of breath I will keep watching patient on telemetry and no further intervention at this time Diabetes mellitus type 2 Continue sliding scale coverage 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 I have reviewed patient lab vitals and imaging in detail all question concerns were addressed
[2024-05-18] MEDS: NORCO 7.5/325 MG TAB PO PRN (05:15)
[2024-05-18] MEDS ORDERED: NON-FORMULARY ITEM (Omeprazole [Omeprazole] 40 MG Capsule.Dr) PO PRN (05:28)
[2024-05-18] MEDS ORDERED: DESYREL 50 MG PO PRN (05:28)
[2024-05-18] MEDS ORDERED: Protonix 40MG Tablet PO PRN (07:03)
[2024-05-18 07:23] VITALS: RESP 16
[2024-05-18] MEDS: HUMALOG SQ SCH (07:53)
[2024-05-18] MEDS: HUMALOG SQ PRN (07:53)
[2024-05-18] MEDS ORDERED: NON-FORMULARY ITEM (Insulin Lispro 1 UNIT Ml) SQ SCH (08:00)
--- NOTE | 2024-05-18 08:42 | XRAY ---
Indication: Cough. Comparison: May 07, 2024 Portable apical lordotic chest better inflated and is now clear. Again a few incidental tiny bilateral calcified granulomas. Heart not enlarged again with left single lead pacemaker. No acute cardiopulmonary abnormalities.
[2024-05-18] MEDS ORDERED: NON-FORMULARY ITEM (Duloxetine Hcl [Cymbalta] 60 MG Capsule.Dr) PO SCH (10:00)
[2024-05-18] MEDS: Neurontin PO SCH (10:17)
[2024-05-18] MEDS: Lantus Insulin SQ SCH (10:18)
[2024-05-18] MEDS: ELIQUIS 2.5 MG TABLET PO SCH (10:18)
[2024-05-18] MEDS: JARDIANCE PO SCH (10:18)
[2024-05-18] MEDS: Cymbalta 30 MG Capsule PO SCH (10:18)
--- NOTE | 2024-05-18 12:30 | PCM.CONS ---
History of Present Illness - Date of Consult Date of Encounter: 05/18/24 Consulting Cherry Grower: MYNOR CAGLE MD Requesting Provider: Attending Provider: FARHEEN FERRERA MD Primary Care Provider: PCP: ROGELIO CAVAZOS DO Consent was: Given for this tele-med encounter - Consult Narrative Reason for Consult: Troponin elevation, history of recurrent admissons for CHF HPI: Patient is a 63M who denies fevers, chills, nausea, vomiting, diarrhea, syncope, presyncope, dysphagia,odynophagia, orthopnea, paroxysmal nocturnal dyspnea, shortness of breath, chest pain, refluxsymptoms, belly pain, dysuria, hematuria, melena, hematochezia, seizures, paralysis, or other neurological changes. All other systems have been reviewed and are negative. cc:: The requesting physician will be sent a copy of the consult. Review of Systems - Review of Systems All systems: all other systems reviewed and were unremarkable (Petinent postive and negatives in HPI. Denies history of hematemesis, melena, or hematochezia.) - Past Medical History Past Medical History: Yes Neurological History: Peripheral Neuropathy, Stroke ENT History: Cataracts Cardiac History: Arrhythmia, Congestive Heart Failure, High Cholesterol, Hypertension Respiratory History: Bronchitis, CHF, COPD, Sleep Apnea Endocrine Medical History: Diabetes Type II Musculoskelatal History: Arthritis, Osteoarthritis, Other GI Medical History: GERD, Gallbladder Disease History: Renal Disease Pyscho-Social History: Anxiety, Depression Male Reproductive Disorders: No Pertinent History Comment: a.fib, restless leg, bulging discs cervical spine, carpal tunnel - Past Surgical History Past Surgical History: Yes Neuro Surgical History: No Pertinent History Cardiac History: Pacemaker Respiratory Surgery: No Pertinent History GI Surgical History: Cholecystectomy Genitourinary Surgical Hx: No Pertinent History Musculskeletal Surgical Hx: Amputation Male Surgical History: No Pertinent History Other Surgical History: cardiac ablation, 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 Right hand 1st/2nd partial amputations Significant Family History: no pertinent family hx (No family history pertaining to this admission reported) - Social History Smoking Status: Never smoker Exposure to second hand smoke: Yes Alcohol: None Drug Use: none - Social Determinants of Health Will the patient participate in the screening: Yes Do you worry about a steady place to live?: No Do you have any problems with any of the following?: No known problems In the past 12 months,have you had to go without utilities?: No Have you or anyone in your house had to go without enough: No Transportation Issues: No Has anyone in your support network made you feel unsafe?: No Does the patient want assistance with any of the above?: No Comment: pt has no running water, would like assistance Medications & Allergies Home Medications: Home Medication List Duloxetine HCl [Cymbalta] 60 mg PO BID 07/28/23 [History Confirmed 05/18/24] Insulin Glargine [Lantus Insulin] 50 unit SQ DAILY 07/28/23 [History Confirmed 05/18/24] Ropinirole 2Mg [Requip 2Mg Tab] 2 mg PO HS 07/28/23 [History Confirmed 05/18/24] Apixaban [Eliquis 2.5 mg Tablet] 5 mg PO BID 30 Days #60 tablet 07/30/23 [Rx Confirmed 05/18/24] Spironolactone 25 mg [Aldactone 25 MG] 25 mg PO DAILY 30 Days #30 tablet 07/30/23 [Rx Confirmed 05/18/24] Furosemide 40 mg [Lasix 40 MG] 40 mg PO DAILY 30 Days #30 tablet 07/31/23 [Rx Confirmed 05/18/24] Potassium Chloride 20 meq PO DAILY 10/16/23 [History Confirmed 05/18/24] Empagliflozin [Jardiance] 25 mg PO DAILY 01/29/24 [History Confirmed 05/18/24] Atorvastatin Calcium [Lipitor 40Mg] 40 mg PO HS 30 Days #30 tablet 02/26/24 [Rx Confirmed 05/18/24] Carvedilol 12.5 mg [Coreg 12.5 mg] 12.5 mg PO BID 30 Days #60 tablet 02/26/24 [Rx Confirmed 05/18/24] Gabapentin [Neurontin ] 100 mg PO TID 30 Days #90 cap 02/26/24 [Rx Confirmed 05/18/24] Insulin Lispro [Humalog] 3 unit SQ TIDWM 30 Days #100 units 02/26/24 [Rx Confirmed 05/18/24] Lisinopril 10 mg [Zestril 10 MG] 10 mg PO DAILY 30 Days #30 tablet 02/26/24 [Rx Confirmed 05/18/24] Omeprazole 40 mg PO DAILY PRN 30 Days #30 cap 02/26/24 [Rx Confirmed 05/18/24] Trazodone HCl 50 mg [Desyrel 50 mg] 50 mg PO HS PRN 30 Days #30 tablet 11/16 [Rx Confirmed 05/18/24] Insulin Lispro [Humalog] 0 unit SQ ACHS 05/07/24 [History Confirmed 05/18/24] Allergies/Adverse Reactions: Allergies Allergy/AdvReac Type Severity Reaction Status Date / Time diphenhydramine Allergy Difficulty Verified 05/18/24 02:42 [From Benadryl] Breathing Iodinated Contrast Media Allergy Difficulty Verified 05/18/24 02:42 Breathing Exam - Vitals Vital Signs: Vital Signs - 24 hr Temp Pulse Resp BP BP Pulse Ox 05/18/24 11:35 97.6 F 89 16 94/52 98 05/18/24 07:22 98.3 F 73 16 117/69 100 05/18/24 02:50 96.8 F 74 18 93/58 98 05/18/24 02:00 92/50 100 05/18/24 01:50 100 05/18/24 01:33 78/35 100 05/18/24 01:30 90/52 100 05/18/24 00:30 93/70 100 05/18/24 00:02 79 87/47 99 05/17/24 23:30 74 92/61 99 05/17/24 23:17 78 106/48 98 05/17/24 23:03 75 18 100 05/17/24 23:01 79 80/56 100 05/17/24 22:31 75 18 104/58 98 05/17/24 22:01 74 82/56 05/17/24 21:32 97.4 F 73 18 87/59 100 General:: no acute distress HEENT: EOMI Cardiovascular Exam: regular rate/rhythm, normal heart sounds, No murmur, No friction rub, No gallop Respiratory Exam: lungs clear SpO2: 98 Gastrointestinal/Abdomen Exam: normal bowel sounds Extremity Exam: No edema Neurologic: geriatrics physician II-XII grossly intact, No motor deficits Results Vital Signs: Vital Signs - 24 hr Temp Pulse Resp BP BP Pulse Ox 05/18/24 11:35 97.6 F 89 16 94/52 98 05/18/24 07:22 98.3 F 73 16 117/69 100 05/18/24 02:50 96.8 F 74 18 93/58 98 05/18/24 02:00 92/50 100 05/18/24 01:50 100 05/18/24 01:33 78/35 100 05/18/24 01:30 90/52 100 05/18/24 00:30 93/70 100 05/18/24 00:02 79 87/47 99 05/17/24 23:30 74 92/61 99 05/17/24 23:17 78 106/48 98 05/17/24 23:03 75 18 100 05/17/24 23:01 79 80/56 100 05/17/24 22:31 75 18 104/58 98 05/17/24 22:01 74 82/56 05/17/24 21:32 97.4 F 73 18 87/59 100 Pain Assessment - Last Documented Pain Intensity 3 Pain Scale Used 0-10 Pain Scale Intake and Output: Intake & Output 05/16/24 05/17/24 05/18/24 05/19/24 11:59 11:59 11:59 11:59 Intake Total 1013 Output Total 275 Balance 738 Weight 76 kg LAB: I have reviewed the Labs in [facility]. Radiology Exams: Radiology Procedures Category Date Time Status CHEST 1 VIEW (PORTABLE) Stat Exams 05/17/24 21:52 Completed CXR (AP) 05/17/2024: Again a few incidental tiny bilateral calcified granulomas. Heart not enlarged again with left single lead pacemaker. No acute cardiopulmonary abnormalities. TTE 02/10/2024: 1. Moderate left atrial enlargement. 2. Moderate right atrial enlargement. 3. Moderate concentric left ventricular hypertrophy. 4. Moderate global left ventricular dysfunction. 5. Left ventricular ejection fraction estimated by 2D at 42 % percent 6. Moderate right ventricular dilatation. 7. Hypokinetic right ventricular apex. 8. Normal mitral valve structure and function. 9. Normal aortic valve structure. 10. Inferior vena cava demonstrates a <50% collapse with respiration. TTE 07/27/2024: LVEF 33% Tracing 1 Attestation: I have reviewed this EKG and interpreted as documented below. EKG Narrative: ECGs: 05/18/2024: Electronic ventricular pacemaker at 76 bpm. Intrinsic rhythm: Atrial fibrillation. 05/17/2024: Electronic ventricular pacemaker at 81 bpm. Intrinsic rhythm: Atrial fibrillation. Multi-Disciplinary Progress Notes: Multi-Disciplinary Progress Notes 05/18/24 11:25 Case Management Note by Shirley Rossi PATIENT HAS [facility]. THEY DO NOT NEED CALLED AT DC BUT DO NEED FAXED THE H&P, DC INSTRUCTIONS, DC MED LIST AND DC SUMMARY TO [phone] THEY WERE NOTIFIED OF PATIENT'S STAY Initialized on 05/18/24 11:25 - END OF NOTE Assessment & Plan (1) Elevated troponin level not due to acute coronary syndrome Current Visit: Yes Status: Acute Assessment & Plan: Mildly elevated with a flat pattern is not worrisome for acute coronary syndrome. Review of his multiple hospitalizations reveals that his troponin-I is chronically elevated to a mild degree with a flat pattern. This can be secondary to congestive heart failure vs acute kidney injury with each of his hospitalizations, but he may also be a person with chronic mild troponin elevation. He has not had a work-up for CAD since 2009. Recommend this be done as an outpatient with his new machine grinder (appt scheduled in the next 1-2 weeks). Code(s): R79.89 - OTHER SPECIFIED ABNORMAL FINDINGS OF BLOOD CHEMISTRY (2) Volume depletion Current Visit: Yes Status: Acute Assessment & Plan: Secondary to patient taking his previous torsemide 50 mg daily prescription plus his new prescription for furosemide 40 mg daily upon his discharge on on 05/09. Formal orthostatic vital signs were positive this afternoon. Once volume repleted, will restart torsemide 50 mg by mouth daily due to its superior bioavailability to furosemide. Code(s): E86.9 - VOLUME DEPLETION, UNSPECIFIED (3) Cardiomyopathy Current Visit: Yes Status: Acute Assessment & Plan: Possible etiologies include CAD as well as chronic RV pacing. Recommend outpatient regadenoson MPS with his new machine grinder to evaluate for CAD and a referral to an labor contract analyst to consider upgrade of his PM to a biventricular PM. Will restart carvedilol 12. 5 mg twice daily tonight. Code(s): I42.9 - CARDIOMYOPATHY, UNSPECIFIED (4) Permanent atrial fibrillation Current Visit: Yes Status: Acute Assessment & Plan: S/P His Bundle ablation in 2009 two days after PPM placement to control ventricular rate. Continue Eliquis 5 mg by mouth twice daily. Code(s): I48.21 - PERMANENT ATRIAL FIBRILLATION (5) Chronic combined systolic and diastolic CHF (congestive heart failure) Current Visit: Yes Status: Acute Assessment & Plan: HFimpEF (33 to 42%) - Compensated. Watch volume status carefully with his volume repletion. Anticipate restarting spironolactone and torsemide tomorrow. Code(s): I50.42 - CHRONIC COMBINED SYSTOLIC AND DIASTOLIC HRT FAIL (6) Acute renal injury Current Visit: No Status: Acute Assessment & Plan: Secondary to volume depletion. Agree with withholding diuretics and KERMIT-I. Will restart once volume repleted. Code(s): N17.9 - ACUTE KIDNEY FAILURE, UNSPECIFIED - Encounter Encounter: "The entirety of this encounter was performed via Telemedicine using audio and visual " Case discussed with Emilia Teague. Will follow-up tomorrow. Mynor Cagle MD [email or web address] [phone]
[2024-05-18 12:57] LABS: ALBUMIN 3.4 g/dL (3.5-5.0); BILIRUBIN,TOTAL 0.7 mg/dL (0.2-1.3); Calcium 8.2 mg/dL (8.4-10.2); Creatinine 1 1.74 mg/dL (0.66-1.25); MAGNESIUM 2.1 mg/dL (1.6-2.3); Potassium 5.4 mmol/L (3.5-5.1); Total Protein 6.3 g/dL (6.3-8.2)
[2024-05-18] MEDS: VELTASSA PO STA (14:41)
[2024-05-18] MEDS: ZOCOR 20MG PO SCH (21:44)
[2024-05-18] MEDS: REQUIP 2MG TAB PO SCH (21:44)
[2024-05-18] MEDS ORDERED: LIPITOR 40MG PO SCH (22:00)
[2024-05-18] MEDS: COREG 12.5 MG PO SCH (23:04)
[2024-05-19 05:11] LABS: Hematocrit 34.1 % (40.1-51.0); Hemoglobin 10.9 g/dL (13.7-17.5); Mean Cell Volume 86.3 fL (79.0-92.2); Mean Corpuscular Hemoglobin 27.6 pg (25.7-32.2); Mean Platelet Volume 10.7 fL (9.4-12.4); Platelet Count 240 x10^3/uL (163-337); Red Blood Count 3.95 x10^6/uL (4.63-6.08); Red Cell Distribution Width 15.1 % (11.6-14.4); White Blood Count 6.6 x10^3/uL (4.23-9.07)
[2024-05-19 05:43] LABS: ANION GAP 12.8 MEQ/L (5-15); Calcium 8.4 mg/dL (8.4-10.2); Creatinine 1 1.6 mg/dL (0.66-1.25); EST GLOMERULAR FILTRATION RATE 47.5 ML/MIN; MAGNESIUM 2.1 mg/dL (1.6-2.3); Potassium 5.2 mmol/L (3.5-5.1)
[2024-05-19] MEDS: VELTASSA PO STA (08:09)
--- NOTE | 2024-05-19 09:42 | PCM.NOTE ---
Date and Time: 05/19/24939 Subjective Assessment: 05/19/24 63 years old pleasant male with past medical history significant for hypertension and congestive heart failure with ejection fraction 33%. He also has prior history of insulin-dependent diabetes mellitus, stroke without any residual deficit, chronic atrial fibrillation status post pacemaker on Eliquis. He was admitted to the ER complaining of muscle spasm in bilateral lower extremity that is been there since yesterday. Patient states he felt extremely fatigued and restless with dizziness. He denied any chest pain, shortness of breath, and has no lower extremity swelling or weight gain. No nausea vomiting diarrhea. No fever cough congestion reported. In the ER blood pressure was running low with systolic 87/59. As far as blood workup concern it was significant with low sodium 128 potassium 5.7 creatinine 1.62. Urine was completely unremarkable. Patient admitted for lower extremity cramps in the setting of electrolyte abnormality. He was given 700 cc normal saline 1 dose of 100 mg gabapentin and admitted for symptom management on admission and continue IVF IP. MARILU improving and potassium is 5.2 today, veltassa given today. Pt admits to taking all meds he had in his home and not taking as directed. Will recheck potassium at 1400 today. he denies any further concerns at this time. - Review of Systems Constitutional: No Fever, No Chills Eyes: No Symptoms Ears, Nose, & Throat: No Symptoms Respiratory: No Cough, No Short Of Breath Cardiac: No Chest Pain, No Edema, No Syncope Abdominal/Gastrointestinal: No Abdominal Pain, No Nausea, No Vomiting, No Diarrhea Genitourinary Symptoms: No Dysuria Musculoskeletal: No Back Pain, No Neck Pain Skin: No Rash Neurological: No Dizziness, No Focal Weakness, No Sensory Changes Psychological: No Symptoms Endocrine: No Symptoms Hematologic/Lymphatic: No Symptoms Immunological/Allergic: No Symptoms Objective Exam General Appearance: no apparent distress, alert Neurologic Exam: alert, oriented x 3, cooperative, normal mood/affect, nml cerebellar function, sensation nml, No motor deficits Skin Exam: normal color, warm, dry Eye Exam: PERRL, EOMI, eyes nml inspection Ears, Nose, Throat Exam: normal ENT inspection, pharynx normal, moist mucous membranes Neck Exam: normal inspection, non-tender, supple, full range of motion Respiratory Exam: normal breath sounds, lungs clear, No respiratory distress Cardiovascular Exam: regular rate/rhythm, normal heart sounds Gastrointestinal/Abdomen Exam: soft, No tenderness, No mass Extremity Exam: normal inspection, normal range of motion Back Exam: normal inspection, normal range of motion, No CVA tenderness, No vertebral tenderness Male Genitalia Exam: deferred Rectal Exam: deferred Objective Data Vital Signs: Vital Signs - 24 hr Temp Pulse Resp BP Pulse Ox 05/19/24 07:10 98.0 F 82 16 123/71 100 05/19/24 04:00 97.1 F 81 16 118/80 100 05/18/24 23:10 96.9 F 73 16 119/73 99 05/18/24 19:08 96.2 F 89 16 115/66 99 05/18/24 18:32 98 05/18/24 14:58 97.7 F 84 16 109/54 98 05/18/24 11:35 97.6 F 89 16 94/52 98 Pain Assessment - Last Documented Pain Intensity 3 Pain Scale Used 0-10 Pain Scale Intake and Output: Intake & Output 05/16/24 05/17/24 05/18/24 05/19/24 11:59 11:59 11:59 11:59 Intake Total 1013 4007 Output Total 275 900 Balance 738 3107 Weight 76 kg Lab Results: Lab Results-Last 24 Hours 05/18/24 05/18/24 05/18/24 Range/Units 11:22 12:05 16:56 WBC (4.23-9.07) x10^3/uL RBC (4.63-6.08) x10^6/uL Hgb (13.7-17.5) g/dL Hct (40.1-51.0) % MCV (79.0-92.2) fL MCH (25.7-32.2) pg MCHC (32.3-36.5) g/dL RDW (11.6-14.4) % Plt Count (163-337) x10^3/uL MPV (9.4-12.4) fL Sodium 132 L (135-145) mmol/L Potassium 5.4 H (3.5-5.1) mmol/L Chloride 97 L (98-107) mmol/L Carbon Dioxide 27 (22-30) mmol/L Anion Gap 13.0 (5-15) MEQ/L BUN 50 H (9-20) mg/dL Creatinine 1.74 H (0.66-1.25) mg/dL Estimated GFR 43.0 ML/MIN Glucose 271 H (74-106) mg/dL POC Glucometer 258 H 127 H (74 to 106) mg/dL Calcium 8.2 L (8.4-10.2) mg/dL Magnesium 2.1 (1.6-2.3) mg/dL Total Bilirubin 0.70 (0.2-1.3) mg/dL AST 109 H (17-59) U/L ALT 58 H (0-50) U/L Alkaline Phosphatase 171 H (38-126) U/L Serum Total Protein 6.3 (6.3-8.2) g/dL Albumin 3.4 L (3.5-5.0) g/dL 05/18/24 05/19/24 05/19/24 Range/Units 21:39 05:05 05:05 WBC 6.6 (4.23-9.07) x10^3/uL RBC 3.95 L (4.63-6.08) x10^6/uL Hgb 10.9 L (13.7-17.5) g/dL Hct 34.1 L (40.1-51.0) % MCV 86.3 (79.0-92.2) fL MCH 27.6 (25.7-32.2) pg MCHC 32.0 L (32.3-36.5) g/dL RDW 15.1 H (11.6-14.4) % Plt Count 240 (163-337) x10^3/uL MPV 10.7 (9.4-12.4) fL Sodium 133 L (135-145) mmol/L Potassium 5.2 H (3.5-5.1) mmol/L Chloride 100 (98-107) mmol/L Carbon Dioxide 26 (22-30) mmol/L Anion Gap 12.8 (5-15) MEQ/L BUN 48 H (9-20) mg/dL Creatinine 1.60 H (0.66-1.25) mg/dL Estimated GFR 47.5 ML/MIN Glucose 243 H (74-106) mg/dL POC Glucometer 179 H (74 to 106) mg/dL Calcium 8.4 (8.4-10.2) mg/dL Magnesium 2.1 (1.6-2.3) mg/dL Total Bilirubin (0.2-1.3) mg/dL AST (17-59) U/L ALT (0-50) U/L Alkaline Phosphatase (38-126) U/L Serum Total Protein (6.3-8.2) g/dL Albumin (3.5-5.0) g/dL 05/19/24 Range/Units 07:36 WBC (4.23-9.07) x10^3/uL RBC (4.63-6.08) x10^6/uL Hgb (13.7-17.5) g/dL Hct (40.1-51.0) % MCV (79.0-92.2) fL MCH (25.7-32.2) pg MCHC (32.3-36.5) g/dL RDW (11.6-14.4) % Plt Count (163-337) x10^3/uL MPV (9.4-12.4) fL Sodium (135-145) mmol/L Potassium (3.5-5.1) mmol/L Chloride (98-107) mmol/L Carbon Dioxide (22-30) mmol/L Anion Gap (5-15) MEQ/L BUN (9-20) mg/dL Creatinine (0.66-1.25) mg/dL Estimated GFR ML/MIN Glucose (74-106) mg/dL POC Glucometer 187 H (74 to 106) mg/dL Calcium (8.4-10.2) mg/dL Magnesium (1.6-2.3) mg/dL Total Bilirubin (0.2-1.3) mg/dL AST (17-59) U/L ALT (0-50) U/L Alkaline Phosphatase (38-126) U/L Serum Total Protein (6.3-8.2) g/dL Albumin (3.5-5.0) g/dL Radiology Exams: Radiology Procedures Category Date Time Status CHEST 1 VIEW (PORTABLE) Stat Exams 05/17/24 21:52 Completed Multi-Disciplinary Progress Notes: Multi-Disciplinary Progress Notes 05/18/24 11:25 Case Management Note by Shirley Rossi PATIENT HAS [facility]. THEY DO NOT NEED CALLED AT DC BUT DO NEED FAXED THE H&P, DC INSTRUCTIONS, DC MED LIST AND DC SUMMARY TO [phone] THEY WERE NOTIFIED OF PATIENT'S STAY Initialized on 05/18/24 11:25 - END OF NOTE Assessment/Plan (1) Elevated troponin Current Visit: Yes Status: Acute Assessment & Plan: Chronic per cardiology and flattened -Per telecardiology he needs to FU outpatient with cardiology and electrophysiology -Per telecardiology no new recommendation and take home medications as prescribed. Code(s): R79.89 - OTHER SPECIFIED ABNORMAL FINDINGS OF BLOOD CHEMISTRY (2) Hyponatremia Current Visit: Yes Status: Acute Assessment & Plan: -mild hyponatremia at 133 -IVF Code(s): E87.1 - HYPO-OSMOLALITY AND HYPONATREMIA (3) Muscle spasm of both lower legs Current Visit: Yes Status: Resolved Assessment & Plan: -resolved Code(s): M62.838 - OTHER MUSCLE SPASM (4) HTN (hypertension) Current Visit: No Status: Chronic Assessment & Plan: -hold lisinopril, spironolactone, fruosemide for MARILU -Restarted Coreg yesterday 05/18 by cardiology -BP stable today, will trend Code(s): I10 - ESSENTIAL (PRIMARY) HYPERTENSION (5) Hyperkalemia Current Visit: No Status: Acute Assessment & Plan: -potassium 5.2 today -Veltassa given and will recheck potassium at 1400 today -Tele Code(s): E87.5 - HYPERKALEMIA (6) Chronic a-fib Current Visit: No Status: Chronic Assessment & Plan: -continue home meds Code(s): I48.20 - CHRONIC ATRIAL FIBRILLATION, UNSPECIFIED
[2024-05-19 11:45] VITALS: TEMP 97.6
--- NOTE | 2024-05-19 15:59 | PCM.DS ---
Discharge Summary Date of Admission: 05/18/24 02:36 Date of Discharge: 05/19/24 Admitting Physician: FARHEEN FERRERA MD Consults: Consults on Case 05/18/24 08:01 Nutritional Consult ROUTINE 05/18/24 08:04 Cardiology Consult [Notify [facility] Specialist of Admit] ROUTINE Primary Care Provider: ROGELIO CAVAZOS DO Allergies Allergies diphenhydramine [From Benadryl] Allergy (Verified 05/18/24 02:42) Difficulty Breathing Iodinated Contrast Media Allergy (Verified 05/18/24 02:42) Difficulty Breathing Hospital Summary - Hospital Course Hospital Course: 05/19/24 63 years old pleasant male with past medical history significant for hypertension and congestive heart failure with ejection fraction 33%. He also has prior history of insulin-dependent diabetes mellitus, stroke without any residual deficit, chronic atrial fibrillation status post pacemaker on Eliquis. He was admitted to the ER complaining of muscle spasm in bilateral lower extremity that is been there since yesterday. Patient states he felt extremely fatigued and restless with dizziness. He denied any chest pain, shortness of breath, and has no lower extremity swelling or weight gain. No nausea vomiting diarrhea. No fever cough congestion reported. In the ER blood pressure was running low with systolic 87/59. As far as blood workup concern it was significant with low sodium 128 potassium 5.7 creatinine 1.62. Urine was c ompletely unremarkable. Patient admitted for lower extremity cramps in the setting of electrolyte abnormality. He was given 700 cc normal saline 1 dose of 100 mg gabapentin and admitted for symptom management on admission and continue IVF IP. MARILU improving and potassium is 5.2 today, veltassa given today. Pt admits to taking all meds he had in his home and not taking as directed. Will recheck potassium at 1400 today. he denies any further concerns at this time. Repeat K+ WNL and he would like to go home today. He has no further sxs at this time. - Vitals & Intake/Output Vital Signs: Vital Signs Temperature 97.6 F 05/19/24 11:43 Pulse Rate 76 05/19/24 11:43 Respiratory Rate 16 05/19/24 11:43 Blood Pressure 125/63 05/19/24 11:43 O2 Sat by Pulse Oximetry 99 05/19/24 11:43 Intake & Output: Intake & Output 05/17/24 05/18/24 05/19/24 05/20/24 11:59 11:59 11:59 11:59 Intake Total 1013 4007 480 Output Total 384 900 500 Balance 738 3107 -20 Weight 76 kg - Lab Result Diagrams: 05/19/24 05:05 05/19/24 13:57 Lab Results-Last 24 Hrs: Lab Results-Last 24 Hours 05/18/24 05/18/24 05/19/24 Range/Units 16:56 21:39 05:05 WBC 6.6 (4.23-9.07) x10^3/uL RBC 3.95 L (4.63-6.08) x10^6/uL Hgb 10.9 L (13.7-17.5) g/dL Hct 34.1 L (40.1-51.0) % MCV 86.3 (79.0-92.2) fL MCH 27.6 (25.7-32.2) pg MCHC 32.0 L (32.3-36.5) g/dL RDW 15.1 H (11.6-14.4) % Plt Count 240 (163-337) x10^3/uL MPV 10.7 (9.4-12.4) fL Sodium (135-145) mmol/L Potassium (3.5-5.1) mmol/L Chloride (98-107) mmol/L Carbon Dioxide (22-30) mmol/L Anion Gap (5-15) MEQ/L BUN (9-20) mg/dL Creatinine (0.66-1.25) mg/dL Estimated GFR ML/MIN Glucose (74-106) mg/dL POC Glucometer 127 H 179 H (74 to 106) mg/dL Calcium (8.4-10.2) mg/dL Magnesium (1.6-2.3) mg/dL 05/19/24 05/19/24 05/19/24 Range/Units 05:05 07:36 11:35 WBC (4.23-9.07) x10^3/uL RBC (4.63-6.08) x10^6/uL Hgb (13.7-17.5) g/dL Hct (40.1-51.0) % MCV (79.0-92.2) fL MCH (25.7-32.2) pg MCHC (32.3-36.5) g/dL RDW (11.6-14.4) % Plt Count (163-337) x10^3/uL MPV (9.4-12.4) fL Sodium 133 L (135-145) mmol/L Potassium 5.2 H (3.5-5.1) mmol/L Chloride 100 (98-107) mmol/L Carbon Dioxide 26 (22-30) mmol/L Anion Gap 12.8 (5-15) MEQ/L BUN 48 H (9-20) mg/dL Creatinine 1.60 H (0.66-1.25) mg/dL Estimated GFR 47.5 ML/MIN Glucose 243 H (74-106) mg/dL POC Glucometer 187 H 215 H (74 to 106) mg/dL Calcium 8.4 (8.4-10.2) mg/dL Magnesium 2.1 (1.6-2.3) mg/dL 05/19/24 Range/Units 13:57 WBC (4.23-9.07) x10^3/uL RBC (4.63-6.08) x10^6/uL Hgb (13.7-17.5) g/dL Hct (40.1-51.0) % MCV (79.0-92.2) fL MCH (25.7-32.2) pg MCHC (32.3-36.5) g/dL RDW (11.6-14.4) % Plt Count (163-337) x10^3/uL MPV (9.4-12.4) fL Sodium (135-145) mmol/L Potassium 4.4 (3.5-5.1) mmol/L Chloride (98-107) mmol/L Carbon Dioxide (22-30) mmol/L Anion Gap (5-15) MEQ/L BUN (9-20) mg/dL Creatinine (0.66-1.25) mg/dL Estimated GFR ML/MIN Glucose (74-106) mg/dL POC Glucometer (74 to 106) mg/dL Calcium (8.4-10.2) mg/dL Magnesium (1.6-2.3) mg/dL Micro Results-Entire Visit: Accuchecks Date 05/19/24 Date 05/18/24 Date 05/18/24 Time 07:51 Time 17:10 - Radiology Exams Ordered Rad Exams-Entire Visit: Radiology Procedures Category Date Time Status CHEST 1 VIEW (PORTABLE) Stat Exams 05/17/24 21:52 Completed - Procedures and Test Procedures and Tests throughout Hospitalization: Therapy Orders & Screens 05/17/24 23:02 Respiratory Therapy Assessment DAILY Comment: Discharge Exam General Appearance: no apparent distress, alert Neurologic Exam: alert, oriented x 3, cooperative, normal mood/affect, nml cerebellar function, sensation nml, No motor deficits Eye Exam: PERRL, EOMI, eyes nml inspection Ears, Nose, Throat Exam: normal ENT inspection, pharynx normal, moist mucous membranes Neck Exam: normal inspection, non-tender, supple, full range of motion Respiratory Exam: normal breath sounds, lungs clear, No respiratory distress Cardiovascular Exam: regular rate/rhythm, normal heart sounds Gastrointestinal/Abdomen Exam: soft, No tenderness, No mass Male Genitalia Exam: deferred Rectal Exam: deferred Back Exam: normal inspection, normal range of motion, No CVA tenderness, No vertebral tenderness Extremity Exam: normal inspection, normal range of motion Skin Exam: normal color, warm, dry Final Diagnosis/Problem List - Final Discharge Diagnosis/Problem (1) Elevated troponin Current Visit: Yes Status: Acute Code(s): R79.89 - OTHER SPECIFIED ABNORMAL FINDINGS OF BLOOD CHEMISTRY (2) Hyponatremia Current Visit: Yes Status: Acute Code(s): E87.1 - HYPO-OSMOLALITY AND HYPONATREMIA (3) Muscle spasm of both lower legs Current Visit: Yes Status: Resolved Code(s): M62.838 - OTHER MUSCLE SPASM (4) HTN (hypertension) Current Visit: No Status: Chronic Code(s): I10 - ESSENTIAL (PRIMARY) HYPERTENSION (5) Hyperkalemia Current Visit: No Status: Acute Code(s): E87.5 - HYPERKALEMIA (6) Chronic a-fib Current Visit: No Status: Chronic Assessment & Plan: (1) Elevated troponin Current Visit: Yes Status: Acute Assessment & Plan: Chronic per cardiology and flattened -Per telecardiology he needs to FU outpatient with cardiology and electrophysiology -Per telecardiology no new recommendation and take home medications as prescribed. Code(s): R79.89 - OTHER SPECIFIED ABNORMAL FINDINGS OF BLOOD CHEMISTRY (2) Hyponatremia Current Visit: Yes Status: Acute Assessment & Plan: -mild hyponatremia at 133 -IVF Code(s): E87.1 - HYPO-OSMOLALITY AND HYPONATREMIA (3) Muscle spasm of both lower legs Current Visit: Yes Status: Resolved Assessment & Plan: -resolved Code(s): M62.838 - OTHER MUSCLE SPASM (4) HTN (hypertension) Current Visit: No Status: Chronic Assessment & Plan: -hold lisinopril, spironolactone, fruosemide for MARILU -Restarted Coreg yesterday 05/18 by cardiology -BP stable today, will trend Code(s): I10 - ESSENTIAL (PRIMARY) HYPERTENSION (5) Hyperkalemia Current Visit: No Status: Acute Assessment & Plan: -potassium 5.2 today -Veltassa given and will recheck potassium at 1400 today Repeat K+ 4.4 -Tele Code(s): E87.5 - HYPERKALEMIA (6) Chronic a-fib Current Visit: No Status: Chronic Assessment & Plan: -continue home meds Code(s): I48.20 - CHRONIC ATRIAL FIBRILLATION, UNSPECIFIED Code(s): I48.20 - CHRONIC ATRIAL FIBRILLATION, UNSPECIFIED - Discharge Discharge Date: 05/19/24 Disposition: Home, Self-Care Condition: Good Prescriptions: Continue Duloxetine HCl [Cymbalta] 60 mg PO BID Ropinirole 2Mg [Requip 2Mg Tab] 2 mg PO HS Insulin Glargine [Lantus Insulin] 50 unit SQ DAILY Spironolactone 25 mg [Aldactone 25 MG] 25 mg PO DAILY 30 Days #30 tablet Apixaban [Eliquis 2.5 mg Tablet] 5 mg PO BID 30 Days #60 tablet Furosemide 40 mg [Lasix 40 MG] 40 mg PO DAILY 30 Days #30 tablet Potassium Chloride 20 meq PO DAILY Empagliflozin [Jardiance] 25 mg PO DAILY Carvedilol 12.5 mg [Coreg 12.5 mg] 12.5 mg PO BID 30 Days #60 tablet Trazodone HCl 50 mg [Desyrel 50 mg] 50 mg PO HS PRN 30 Days #30 tablet PRN Reason: Insomnia Atorvastatin Calcium [Lipitor 40Mg] 40 mg PO HS 30 Days #30 tablet Gabapentin [Neurontin ] 100 mg PO TID 30 Days #90 cap Omeprazole 40 mg PO DAILY PRN 30 Days #30 cap PRN Reason: Indigestion Lisinopril 10 mg [Zestril 10 MG] 10 mg PO DAILY 30 Days #30 tablet Insulin Lispro [Humalog] 3 unit SQ TIDWM 30 Days #100 units Insulin Lispro [Humalog] 0 unit SQ ACHS Instructions: Heart failure - Discharge instructions Follow up with: ROGELIO CAVAZOS DO [Primary Care Provider] - 05/25/24 3:30 pm ANETA JOHNSTON [CONSULTING PHYSICIAN] - 06/17/24 9:45 am (AT [facility]) KIMBERLY ANGEL MD [NON-STAFF PHY W/O PRIVILEGES] - 09/03/24 2:40 pm (AT [facility] )
[2024-05-19 16:26] VITALS: BP 114/62; PULSE 81; O2SAT 100
== END 2024-05-19 19:10 | disposition home or self-care (01) ==
LOC: ED 21:29 → MED SURG 05-18 00:54 → UNDOADMOB 05-18 00:54 → MED SURG 05-18 02:36
PROVIDERS: ADMIT Internal Medicine; ATTEND Internal Medicine
DX: R79.89 Other specified abnormal findings of blood chemistry (principal); Z59.12 Inadequate housing utilities; E87.1 Hypo-osmolality and hyponatremia; M62.838 Other muscle spasm; E87.5 Hyperkalemia; I48.20 Chronic atrial fibrillation, unspecified; I11.0 Hypertensive heart disease with heart failure; I50.9 Heart failure, unspecified; E11.9 Type 2 diabetes mellitus without complications; R42 Dizziness and giddiness; Z79.01 Long term (current) use of anticoagulants; Z86.73 Personal history of transient ischemic attack (TIA), and cerebral infarction without residual deficits; Z79.899 Other long term (current) drug therapy
CPT/HCPCS: 36000; 36415; 71045; 80048; 80053; 81001; 82550; 82947; 83605; 83735; 83880; 84132; 84484; 85025; 85027; 93005; 94640; 96372; 99285; Q3014; 93268; J1817; J7609; A9270-GY; G0378

== ENCOUNTER 2024-05-26 15:37 | Observation (INO) | payer MEDICARE ==
[2024-05-26] MEDS ORDERED: Sodium Chloride 0.9% 1000 ML 1,000 ML ONE (17:08)
[2024-05-26] MEDS: Sodium Chloride 0.9% 1000 ML 1,000 ML IV SCH (17:09)
--- NOTE | 2024-05-26 17:19 | ERPHSYRPT ---
- History of Present Illness Time Seen by Provider: 05/26/24 16:50 Source: patient Exam Limitations: no limitations Patient Subjective Stated Complaint: States abnormal labs today; high potassium, low sodium, blood glucose greater than 400. Triage Nursing Assessment: Patient ambulated back to ER with a cane. He is alert and oriented. Restless in bed; states related to muscle cramps in legs. No SOB. Skin tone normal. Accucheck per ER glucometer 321 at 1635. Physician History: Patient presents to our ED as a referral from his primary care doctor for evaluation of high potassium high sugar and low sodium. Patient states he had been experiencing severe painful muscle cramps throughout his body and cheerier chest pain. Patient follow-up with his primary care doctor. Outpatient labs were ordered abnormalities were observed. Patient was advised to come to our ED for an evaluation. Pain described as cramping pain throughout his body. No associated fever no nausea no vomiting no diarrhea no diaphoresis. Patient is not known to have kidney disease. Symptoms are mild to moderate in intensity. No specific worsening improving factors. Patient otherwise feels well. He voices no other complaints or concerns at this time. Portions of this note were created with voice recognition technology. There may be grammatical, spelling, punctuation or sound alike errors Timing/Duration: today Severity: moderate Modifying Factors: Improves With: nothing Associated Symptoms: denies symptoms Allergies/Adverse Reactions: diphenhydramine [From Benadryl] Allergy (Verified 05/26/24 16:42) Difficulty Breathing Iodinated Contrast Media Allergy (Verified 05/26/24 16:42) Difficulty Breathing Home Medications: Duloxetine HCl [Cymbalta] 60 mg PO BID 07/28/23 [History] Insulin Glargine [Lantus Insulin] 50 unit SQ DAILY 07/28/23 [History] Ropinirole 2Mg [Requip 2Mg Tab] 2 mg PO HS 07/28/23 [History] Potassium Chloride 20 meq PO DAILY 10/16/23 [History] Empagliflozin [Jardiance] 25 mg PO DAILY 01/29/24 [History] Insulin Lispro [Humalog] 0 unit SQ ACHS 05/07/24 [History] Hx Tetanus, Diphtheria Vaccination/Date Given: Yes Hx Influenza Vaccination/Date Given: Yes Hx Pneumococcal Vaccination/Date Given: Yes Immunizations Up to Date: Yes Travel Risk - International Travel Have you traveled outside of the country in past 3 weeks: No - Emerging Infectious Disease Are you exhibiting symptoms associated with any current EIDs: No Symptoms: Shortness of Breath - Review of Systems Constitutional: No Symptoms, No Fever, No Chills Eyes: No Symptoms Ears, Nose, & Throat: No Symptoms Respiratory: No Symptoms, No Cough, No Dyspnea Cardiac: No Symptoms, No Chest Pain, No Edema, No Syncope Abdominal/Gastrointestinal: No Symptoms, No Abdominal Pain, No Nausea, No Vomiting, No Diarrhea Genitourinary Symptoms: No Symptoms, No Dysuria Musculoskeletal: No Symptoms, No Back Pain, No Neck Pain Skin: No Symptoms, No Rash Neurological: No Symptoms, No Dizziness, No Focal Weakness, No Sensory Changes Psychological: No Symptoms Endocrine: No Symptoms Hematologic/Lymphatic: No Symptoms Immunological/Allergic: No Symptoms All Other Systems: Reviewed and Negative - Past Medical History Pertinent Past Medical History: Yes Neurological History: Peripheral Neuropathy, Stroke ENT History: Cataracts Cardiac History: Arrhythmia, Congestive Heart Failure, High Cholesterol, Hypertension Respiratory History: Bronchitis, CHF, COPD, Sleep Apnea Endocrine Medical History: Diabetes Type II Musculoskeletal History: Arthritis, Osteoarthritis, Other GI Medical History: GERD, Gallbladder Disease History: Renal Disease Psycho-Social History: Anxiety, Depression Male Reproductive Disorders: No Pertinent History Other Medical History: a.fib, restless leg, bulging discs cervical spine, carpal tunnel - Past Surgical History Past Surgical History: Yes Neuro Surgical History: No Pertinent History Cardiac: Pacemaker Respiratory: No Pertinent History Gastrointestinal: Cholecystectomy Genitourinary: No Pertinent History Musculoskeletal: Amputation Male Surgical History: No Pertinent History Other Surgical History: cardiac ablation, 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 Right hand 1st/2nd partial amputations Significant Family History: no pertinent family hx (No family history pertaining to this admission reported) - Social History Smoking Status: Never smoker Exposure to second hand smoke: Yes Drug Use: none Patient Lives Alone: No - Social Determinants of Health Will the patient participate in the screening: Declined to provide - Nursing Vital Signs Nursing Vital Signs: Initial Vital Signs Pulse Rate 73 05/26/24 16:38 Respiratory Rate 13 05/26/24 16:38 Blood Pressure 141/100 05/26/24 16:38 O2 Sat by Pulse Oximetry 99 05/26/24 16:38 Pain Scale Pain Intensity 5 - Physical Exam General Appearance: no apparent distress, alert Eye Exam: PERRL/EOMI, eyes nml inspection Ears, Nose, Throat Exam: normal ENT inspection, TMs normal, pharynx normal, moist mucous membranes Neck Exam: normal inspection, non-tender, supple, full range of motion Respiratory Exam: normal breath sounds, lungs clear, airway intact, No respiratory distress Cardiovascular Exam: regular rate/rhythm, normal heart sounds, normal peripheral pulses Gastrointestinal/Abdomen Exam: soft, normal bowel sounds, No tenderness, No mass Back Exam: normal inspection, normal range of motion, No CVA tenderness, No vertebral tenderness Extremity Exam: normal inspection, normal range of motion, pelvis stable Neurologic Exam: alert, oriented x 3, cooperative, normal mood/affect, nml cerebellar function, nml station & gait, sensation nml, No motor deficits Skin Exam: normal color, warm, dry, No rash Lymphatic Exam: No adenopathy SpO2 Interpretation: normal SpO2: 100 O2 Delivery: Room Air - Course Nursing assessment & vital signs reviewed: Yes EKG Interpreted by Me: RATE (74), A-fib, NORMAL AXIS, NORMAL INTERVALS - Radiology Exams Chest X-ray Interpretation: Interpreted by me (No acute findings) Ordered Tests: Active Orders 24 hr Category Date Time Status Bedrest ROUTINE Activity 05/26/24 23:15 Active Call Admit Doctor for Orders ON ADMISSION Care 05/26/24 23:15 Active Client Services Analyst ROUTINE Care 05/26/24 23:15 Active Client Services Analyst STAT Care 05/26/24 16:52 Completed Code Status Order ROUTINE Care 05/26/24 23:15 Active EKG-ER Only STAT Care 05/26/24 16:51 Completed IV Insertion STAT Care 05/26/24 16:51 Completed Neuro Checks Q4H Care 05/26/24 23:[address] in Observation ROUTINE Care 05/26/24 23:15 Active Pulse Oximetry (ED) STAT Care 05/26/24 16:51 Completed Telemetry q6h Care 05/26/24 23:15 Active Telemetry q6h Care 05/26/24 23:15 Active Consistent Carbohydrate Diet 1800 Calorie Diet 05/27/24 Breakfast Active CHEST 1 VIEW (PORTABLE) Stat Exams 05/26/24 22:54 Taken CBC W DIFF Stat Lab 05/26/24 17:15 Completed CMP Stat Lab 05/26/24 17:15 Completed CMP Stat Lab 05/26/24 21:15 Completed CULTURE,URINE Stat Lab 05/26/24 19:25 Received MAGNESIUM Stat Lab 05/26/24 17:15 Completed POCT GLUCOSE Stat Lab 05/26/24 16:34 Completed TROPONIN Q4H Lab 05/26/24 17:15 Completed TROPONIN Q4H Lab 05/26/24 21:10 Completed TROPONIN Q4H Lab 05/27/24 01:00 Ordered UA W/RFX UR CULTURE Stat Lab 05/26/24 19:25 Completed Pulse Oximetry CONTINUOUS RT 05/26/24 23:15 Active Transfer Order Routine Transfer 05/26/24 Completed Transfer Order Routine Transfer 05/26/24 Ordered Medication Summary Discontinued Medications Generic Name Dose Route Start Last Admin Trade Name Freq PRN Reason Stop Dose Admin Aspirin 162 mg 05/27/24 10:00 05/26/24 23:15 Aspirin 81 Mg Tab.Chew PO 06/26/24 09:59 162 mg QAM JUAN Administration Diazepam 5 mg 05/26/24 20:08 05/26/24 20:38 Diazepam 10 Mg/2 Ml Disp.Syringe IV 05/26/24 20:09 5 mg STAT ONE Administration Diazepam Confirm 05/26/24 20:37 Diazepam 10 Mg/2 Ml Disp.Syringe Administered 05/26/24 20:38 Dose 10 mg .ROUTE .STK-MED ONE Sodium Chloride 1,000 mls @ 100 mls/hr 05/26/24 17:00 05/26/24 17:09 Sodium Chloride 0.9% 1000 Ml IV 06/25/24 16:59 100 mls/hr .Q10H JUAN Administration Sodium Chloride Confirm 05/26/24 17:08 Sodium Chloride 0.9% 1000 Ml Administered 05/26/24 17:09 Dose 1,000 mls @ ud .ROUTE .STK-MED ONE Nitroglycerin 1 gm 05/26/24 22:55 05/26/24 23:15 Nitroglycerin 1 Gm Packet TOP 05/26/24 22:56 1 gm STAT ONE Administration Nitroglycerin Confirm 05/26/24 23:12 Nitroglycerin 1 Gm Packet Administered 05/26/24 23:13 Dose 1 gm .ROUTE .STK-MED ONE Lab/Rad Data: Laboratory Result Diagrams 05/26/24 17:15 05/26/24 21:15 Laboratory Results 05/26/24 05/26/24 05/26/24 Range/Units 21:15 21:10 19:25 WBC (4.23-9.07) x10^3/uL RBC (4.63-6.08) x10^6/uL Hgb (13.7-17.5) g/dL Hct (40.1-51.0) % MCV (79.0-92.2) fL MCH (25.7-32.2) pg MCHC (32.3-36.5) g/dL RDW (11.6-14.4) % Plt Count (163-337) x10^3/uL MPV (9.4-12.4) fL Gran % (34.0-67.9) % Immature Gran % (Auto) (0.001-0.429) % Nucleat RBC Rel Count (0.00-0.2) % Eos # (Auto) (0.04-0.54) x10^3/uL Immature Gran # (Auto) (0.001-0.031) x10^3u/L Absolute Lymphs (auto) (1.32-3.57) x10^3/uL Absolute Monos (auto) (0.30-0.82) x10^3/uL Absolute Nucleated RBC (0.00-0.012) x10^3u/L Lymphocytes % (21.8-53.1) % Monocytes % (5.3-12.2) % Eosinophils % (0.8-7.0) % Basophils % (0.2-1.2) % Absolute Granulocytes (1.78-5.38) x10^3/uL Basophils # (0.01-0.08) x10^3/uL Sodium 131 L (135-145) mmol/L Potassium 5.5 H (3.5-5.1) mmol/L Chloride 103 (98-107) mmol/L Carbon Dioxide 21 L (22-30) mmol/L Anion Gap 12.7 (5-15) MEQ/L BUN 33 H (9-20) mg/dL Creatinine 1.34 H (0.66-1.25) mg/dL Estimated GFR 58.8 ML/MIN Glucose 254 H (74-106) mg/dL POC Glucometer (74 to 106) mg/dL Calcium 8.9 (8.4-10.2) mg/dL Magnesium (1.6-2.3) mg/dL Total Bilirubin 0.90 (0.2-1.3) mg/dL AST 33 (17-59) U/L ALT 42 (0-50) U/L Alkaline Phosphatase 126 (38-126) U/L Troponin I 0.084 H* (0.000-0.033) ng/mL Serum Total Protein 6.3 (6.3-8.2) g/dL Albumin 3.6 (3.5-5.0) g/dL Urine Color Yellow (Yellow) Urine Appearance Clear (Clear) Urine pH 5.5 (4.6-8.0) Ur Specific Industry 1.015 (1.005-1.030) Urine Protein 300 A (Negative) Urine Glucose (UA) 500 A (Negative) mg/dL Urine Ketones Negative (Negative) Urine Blood Trace (Negative) Urine Nitrite Negative (Negative) Urine Bilirubin Negative (Negative) Urine Urobilinogen 1.0 A (0.2) mg/dL Ur Leukocyte Esterase Negative (Negative) U Hyaline Cast (Auto) 11-20 (0-2) /LPF Urine Microscopic RBC 0-2 (0-5) /HPF Urine Microscopic WBC 0-2 (0-5) /HPF Ur Epithelial Cells Rare (None Seen) /HPF Urine Bacteria None Seen (None Seen) /HPF Urine Culture Reflexed YES (NO) 05/26/24 05/26/24 05/26/24 Range/Units 17:15 17:15 17:15 WBC 5.0 (4.23-9.07) x10^3/uL RBC 3.80 L (4.63-6.08) x10^6/uL Hgb 10.6 L (13.7-17.5) g/dL Hct 31.4 L (40.1-51.0) % MCV 82.6 (79.0-92.2) fL MCH 27.9 (25.7-32.2) pg MCHC 33.8 (32.3-36.5) g/dL RDW 15.0 H (11.6-14.4) % Plt Count 213 (163-337) x10^3/uL MPV 10.1 (9.4-12.4) fL Gran % 72.1 H (34.0-67.9) % Immature Gran % (Auto) 0.0 L (0.001-0.429) % Nucleat RBC Rel Count 0.0 (0.00-0.2) % Eos # (Auto) 0.04 (0.04-0.54) x10^3/uL Immature Gran # (Auto) 0.00 L (0.001-0.031) x10^3u/L Absolute Lymphs (auto) 0.99 L (1.32-3.57) x10^3/uL Absolute Monos (auto) 0.32 (0.30-0.82) x10^3/uL Absolute Nucleated RBC 0.00 (0.00-0.012) x10^3u/L Lymphocytes % 20.0 L (21.8-53.1) % Monocytes % 6.5 (5.3-12.2) % Eosinophils % 0.8 (0.8-7.0) % Basophils % 0.6 (0.2-1.2) % Absolute Granulocytes 3.58 (1.78-5.38) x10^3/uL Basophils # 0.03 (0.01-0.08) x10^3/uL Sodium 131 L (135-145) mmol/L Potassium 5.2 H (3.5-5.1) mmol/L Chloride 100 (98-107) mmol/L Carbon Dioxide 22 (22-30) mmol/L Anion Gap 13.6 (5-15) MEQ/L BUN 32 H (9-20) mg/dL Creatinine 1.33 H (0.66-1.25) mg/dL Estimated GFR 59.3 ML/MIN Glucose 332 H (74-106) mg/dL POC Glucometer (74 to 106) mg/dL Calcium 9.1 (8.4-10.2) mg/dL Magnesium 1.8 (1.6-2.3) mg/dL Total Bilirubin 0.90 (0.2-1.3) mg/dL AST 37 (17-59) U/L ALT 45 (0-50) U/L Alkaline Phosphatase 134 H (38-126) U/L Troponin I 0.088 H* (0.000-0.033) ng/mL Serum Total Protein 6.6 (6.3-8.2) g/dL Albumin 3.8 (3.5-5.0) g/dL Urine Color (Yellow) Urine Appearance (Clear) Urine pH (4.6-8.0) Ur Specific Industry (1.005-1.030) Urine Protein (Negative) Urine Glucose (UA) (Negative) mg/dL Urine Ketones (Negative) Urine Blood (Negative) Urine Nitrite (Negative) Urine Bilirubin (Negative) Urine Urobilinogen (0.2) mg/dL Ur Leukocyte Esterase (Negative) U Hyaline Cast (Auto) (0-2) /LPF Urine Microscopic RBC (0-5) /HPF Urine Microscopic WBC (0-5) /HPF Ur Epithelial Cells (None Seen) /HPF Urine Bacteria (None Seen) /HPF Urine Culture Reflexed (NO) 05/26/24 Range/Units 16:34 WBC (4.23-9.07) x10^3/uL RBC (4.63-6.08) x10^6/uL Hgb (13.7-17.5) g/dL Hct (40.1-51.0) % MCV (79.0-92.2) fL MCH (25.7-32.2) pg MCHC (32.3-36.5) g/dL RDW (11.6-14.4) % Plt Count (163-337) x10^3/uL MPV (9.4-12.4) fL Gran % (34.0-67.9) % Immature Gran % (Auto) (0.001-0.429) % Nucleat RBC Rel Count (0.00-0.2) % Eos # (Auto) (0.04-0.54) x10^3/uL Immature Gran # (Auto) (0.001-0.031) x10^3u/L Absolute Lymphs (auto) (1.32-3.57) x10^3/uL Absolute Monos (auto) (0.30-0.82) x10^3/uL Absolute Nucleated RBC (0.00-0.012) x10^3u/L Lymphocytes % (21.8-53.1) % Monocytes % (5.3-12.2) % Eosinophils % (0.8-7.0) % Basophils % (0.2-1.2) % Absolute Granulocytes (1.78-5.38) x10^3/uL Basophils # (0.01-0.08) x10^3/uL Sodium (135-145) mmol/L Potassium (3.5-5.1) mmol/L Chloride (98-107) mmol/L Carbon Dioxide (22-30) mmol/L Anion Gap (5-15) MEQ/L BUN (9-20) mg/dL Creatinine (0.66-1.25) mg/dL Estimated GFR ML/MIN Glucose (74-106) mg/dL POC Glucometer 321 H (74 to 106) mg/dL Calcium (8.4-10.2) mg/dL Magnesium (1.6-2.3) mg/dL Total Bilirubin (0.2-1.3) mg/dL AST (17-59) U/L ALT (0-50) U/L Alkaline Phosphatase (38-126) U/L Troponin I (0.000-0.033) ng/mL Serum Total Protein (6.3-8.2) g/dL Albumin (3.5-5.0) g/dL Urine Color (Yellow) Urine Appearance (Clear) Urine pH (4.6-8.0) Ur Specific Industry (1.005-1.030) Urine Protein (Negative) Urine Glucose (UA) (Negative) mg/dL Urine Ketones (Negative) Urine Blood (Negative) Urine Nitrite (Negative) Urine Bilirubin (Negative) Urine Urobilinogen (0.2) mg/dL Ur Leukocyte Esterase (Negative) U Hyaline Cast (Auto) (0-2) /LPF Urine Microscopic RBC (0-5) /HPF Urine Microscopic WBC (0-5) /HPF Ur Epithelial Cells (None Seen) /HPF Urine Bacteria (None Seen) /HPF Urine Culture Reflexed (NO) - Progress Progress: improved Progress Note: 63-year-old male presents to emergency department for evaluation of muscle cramps chest pain. Patient reports that symptoms have been ongoing for past couple days. Patient follow-up with his primary care doctor. Outpatient labs are ordered. Abnormalities observed. Patient advised to come to our ED for an evaluation. Patient received Valium for cramps. Pain improved. However patient was observed to have elevated troponin. We trended troponin. Troponin appears to be trending downward. Review of previous labs show that patient tends to run elevated troponin. However in light of patient's chest pain age and other cardiovascular risk factors decision was made to admit for cardiac rule out and for correction of electrolytes. Laboratory workup reveals a slight hyperkalemia. Hyponatremia. Mild hyperglycemia. No EKG changes observed to indicate a threatening hyperkalemia. Case discussed with Dr. Reyes at 10:30 PM. He accepts admission to observation for cardiac rule out and electrolyte correction. Plan of care discussed with patient. Patient agrees to admission at [facility] for further evaluation and treatment. Aspirin and Nitropaste administered Portions of this note were created with voice recognition technology. There may be grammatical, spelling, punctuation or sound alike errors Complexity problem addressed is moderate acute complicated. No critical care time. Complexity data reviewed and analyzed is extensive. Test ordered chest reviewed results analyzed and correlated clinically with history and physical exam. Risk of complication and or risk of morbidity/mortality patient management is high. Patient requires hospitalization for further evaluation and treatment. Vital stable. Time spent admit patient approximately 20 minutes. Plan of care established for shared decision making. No social determinants of health present to impede follow-up. Portions of this note were created with voice recognition technology. There may be grammatical, spelling, punctuation or sound alike errors 05/26/24 22:59 05/26/24 23:[address]Jose: Josse (1030pm) Counseled pt/family regarding: lab results, diagnosis, rad results - Departure Departure Disposition: Observation Clinical Impression: Proteinuria, Glucosuria, Muscle cramps, Elevated troponin, Hyperglycemia, ACS (acute coronary syndrome), Chest pain, Hyponatremia, Electrolyte abnormality Condition: Stable Critical Care Time: No Referrals: ROGELIO CAVAZOS, [Primary Care Provider] - Follow up/PCP as directed
[2024-05-26 17:21] LABS: Absolute Neutrophil Ct (ANC) 3.58 x10^3/uL (1.78-5.38); BASOPHIL % 0.6 % (0.2-1.2); Basophil (Absolute #) 0.03 x10^3/uL (0.01-0.08); Eosinophil % 0.8 % (0.8-7.0); Eosinophil (Absolute #) 0.04 x10^3/uL (0.04-0.54); Hematocrit 31.4 % (40.1-51.0); Hemoglobin 10.6 g/dL (13.7-17.5); Lymphocyte (Absolute #) 0.99 x10^3/uL (1.32-3.57); Mean Cell Volume 82.6 fL (79.0-92.2); Mean Corpuscular Hemoglobin 27.9 pg (25.7-32.2); Mean Corpuscular Hgb Concent. 33.8 g/dL (32.3-36.5); Mean Platelet Volume 10.1 fL (9.4-12.4); Monocyte (Absolute #) 0.32 x10^3/uL (0.30-0.82); Monocytes % 6.5 % (5.3-12.2); Neutrophil % 72.1 % (34.0-67.9); Platelet Count 213 x10^3/uL (163-337)
[2024-05-26 17:43] LABS: ALBUMIN 3.8 g/dL (3.5-5.0); ANION GAP 13.6 MEQ/L (5-15); BILIRUBIN,TOTAL 0.9 mg/dL (0.2-1.3); Calcium 9.1 mg/dL (8.4-10.2); Creatinine 1 1.33 mg/dL (0.66-1.25); EST GLOMERULAR FILTRATION RATE 59.3 ML/MIN; MAGNESIUM 1.8 mg/dL (1.6-2.3); Potassium 5.2 mmol/L (3.5-5.1); Total Protein 6.6 g/dL (6.3-8.2)
[2024-05-26 19:55] LABS: Appearance Clear (Clear); Bacteria None Seen /HPF (None Seen); Bilirubin Negative (Negative); Blood Trace (Negative); Epithelial Cells Rare /HPF (None Seen); Glucose, Urine 500 mg/dL (Negative); Ketones Negative (Negative); Leukocyte Esterase Negative (Negative); Nitrite Negative (Negative); Ph 5.5 (4.6-8.0); Protein,Urine Dip 300 (Negative); RBC 0-2 /HPF (0-5); Specific Gravity 1.015 (1.005-1.030); WBC 0-2 /HPF (0-5)
[2024-05-26] MEDS ORDERED: VALIUM 10 MG/2 ML SYRINGE ONE (20:37)
[2024-05-26] MEDS: VALIUM 10 MG/2 ML SYRINGE IV ONE (20:38)
[2024-05-26 21:37] LABS: ALBUMIN 3.6 g/dL (3.5-5.0); ANION GAP 12.7 MEQ/L (5-15); BILIRUBIN,TOTAL 0.9 mg/dL (0.2-1.3); Calcium 8.9 mg/dL (8.4-10.2); Creatinine 1 1.34 mg/dL (0.66-1.25); EST GLOMERULAR FILTRATION RATE 58.8 ML/MIN; Potassium 5.5 mmol/L (3.5-5.1); Total Protein 6.3 g/dL (6.3-8.2)
[2024-05-26] MEDS ORDERED: NITRO-BID 2% UD PACKETS ONE (23:12)
[2024-05-26] MEDS: BABY ASPIRIN 81 MG CHEW PO SCH (23:15)
[2024-05-26] MEDS: NITRO-BID 2% UD PACKETS TOP ONE (23:15)
[2024-05-26] MEDS ORDERED: TYLENOL 325 MG PO PRN (23:29)
[2024-05-26] MEDS ORDERED: HUMULIN R SQ PRN (23:29)
--- NOTE | 2024-05-26 23:53 | PCM.HP ---
History of Present Illness - Chief Complaint Chief Complaint: cramping Date: 05/26/24 History of Present Illness: 63 y/o M with h/o HFrEF, DM2, HTN, CVA, CKD3, and A-fib, who presents from his PCP office with cramps and hyperkalemia. Patient was at his PCP office for fo llowup of hyperkalemia, and was told he was still hyperkalemic and needed to come to the ED. He notes persistent diffuse cramps and muscle spasms, worse than last week. They have now improved after getting fluids in the ED, as well as valium. He denies palpitations or nausea. He had some brief substernal chest pain at rest this afternoon that resolve on its own after a few minutes and has not recurred. He denies diaphoresis, nausea, or numbness. He notes that he continues to take oral potassium supplements at home despite his recent hyperkalemia. Note, patient was admitted one week ago with similar symptoms. At that time he also had mild hyperkalemia, mild chronic elevation in troponin, hyponatremia, and worse renal function. At that time was seen by cardiology, who agreed that patient's chronic mild elevated troponin is not consistent with ACS, and instead is likely due to CKD and CHF. However, patient has not had a cardiac workup since 2009. - Review of Systems All Other Systems: Reviewed and Negative Medications & Allergies Home Medications: Home Medication List Duloxetine HCl [Cymbalta] 60 mg PO BID 07/28/23 [History Confirmed 05/26/24] Insulin Glargine [Lantus Insulin] 50 unit SQ DAILY 07/28/23 [History Confirmed 05/26/24] Ropinirole 2Mg [Requip 2Mg Tab] 2 mg PO HS 07/28/23 [History Confirmed 05/26/24] Apixaban [Eliquis 2.5 mg Tablet] 5 mg PO BID 30 Days #60 tablet 07/30/23 [Rx Confirmed 05/26/24] Spironolactone 25 mg [Aldactone 25 MG] 25 mg PO DAILY 30 Days #30 tablet 07/30/23 [Rx Confirmed 05/26/24] Furosemide 40 mg [Lasix 40 MG] 40 mg PO DAILY 30 Days #30 tablet 07/31/23 [Rx Confirmed 05/26/24] Potassium Chloride 20 meq PO DAILY 10/16/23 [History Confirmed 05/26/24] Empagliflozin [Jardiance] 25 mg PO DAILY 01/29/24 [History Confirmed 05/26/24] Atorvastatin Calcium [Lipitor 40Mg] 40 mg PO HS 30 Days #30 tablet 02/26/24 [Rx Confirmed 05/26/24] Carvedilol 12.5 mg [Coreg 12.5 mg] 12.5 mg PO BID 30 Days #60 tablet 02/26/24 [Rx Confirmed 05/26/24] Gabapentin [Neurontin ] 100 mg PO TID 30 Days #90 cap 02/26/24 [Rx Confirmed 05/26/24] Insulin Lispro [Humalog] 3 unit SQ TIDWM 30 Days #100 units 02/26/24 [Rx Confirmed 05/26/24] Lisinopril 10 mg [Zestril 10 MG] 10 mg PO DAILY 30 Days #30 tablet 02/26/24 [Rx Confirmed 05/26/24] Omeprazole 40 mg PO DAILY PRN 30 Days #30 cap 02/26/24 [Rx Confirmed 05/26/24] Trazodone HCl 50 mg [Desyrel 50 mg] 50 mg PO HS PRN 30 Days #30 tablet 02/26/24 [Rx Confirmed 05/26/24] Insulin Lispro [Humalog] 0 unit SQ ACHS 05/07/24 [History Confirmed 05/26/24] Allergies/Adverse Reactions: Allergies Allergy/AdvReac Type Severity Reaction Status Date / Time diphenhydramine Allergy Difficulty Verified 05/26/24 16:42 [From Benadryl] Breathing Iodinated Contrast Media Allergy Difficulty Verified 05/26/24 16:42 Breathing - Past Medical History Past Medical History: Yes Neurological History: Peripheral Neuropathy, Stroke ENT History: Cataracts Cardiac History: Arrhythmia, Congestive Heart Failure, High Cholesterol, Hypertension Respiratory History: CHF, COPD, Sleep Apnea Endocrine Medical History: Diabetes Type II Musculoskelatal History: Arthritis, Osteoarthritis, Other GI Medical History: GERD, Gallbladder Disease History: Renal Disease Pyscho-Social History: Anxiety, Depression Male Reproductive Disorders: No Pertinent History Comment: a.fib, restless leg, bulging discs cervical spine, carpal tunnel - Past Surgical History Past Surgical History: Yes Neuro Surgical History: No Pertinent History Cardiac History: Pacemaker Respiratory Surgery: No Pertinent History GI Surgical History: Cholecystectomy Genitourinary Surgical Hx: No Pertinent History Musculskeletal Surgical Hx: Amputation Male Surgical History: No Pertinent History Other Surgical History: cardiac ablation, 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 Right hand 1st/2nd partial amputations Significant Family History: no pertinent family hx (No family history pertaining to this admission reported) - Social History Smoking Status: Never smoker Exposure to second hand smoke: Yes Alcohol: None Drug Use: none - Social Determinants of Health Will the patient participate in the screening: Declined to provide Do you worry about a steady place to live?: No In the past 12 months,have you had to go without utilities?: No Have you or anyone in your house had to go without enough: No Transportation Issues: No Has anyone in your support network made you feel unsafe?: No Does the patient want assistance with any of the above?: No Comment: pt has no running water, would like assistance - Physical Exam Vital Signs: Vital Signs - 24 hr Temp Pulse Resp BP BP Pulse Ox 05/26/24 23:04 100 05/26/24 23:01 76 26 H 128/99 99 05/26/24 22:30 84 15 153/98 98 05/26/24 22:18 76 20 150/88 100 05/26/24 22:17 75 12 100 05/26/24 22:10 70 18 99 05/26/24 22:01 82 20 05/26/24 21:31 76 15 141/83 05/26/24 21:30 81 10 L 05/26/24 21:20 73 20 05/26/24 21:10 76 17 05/26/24 21:01 73 14 05/26/24 20:32 81 17 146/86 05/26/24 20:00 78 19 133/94 100 05/26/24 19:30 80 14 158/94 05/26/24 19:00 77 16 157/90 88 L 05/26/24 18:50 75 17 96 05/26/24 18:40 72 21 84 L 05/26/24 18:30 73 21 91 L 05/26/24 18:20 76 19 84 L 05/26/24 18:10 79 24 98 05/26/24 18:03 81 22 91 L 05/26/24 17:30 77 19 148/87 89 L 05/26/24 17:01 81 24 142/97 100 05/26/24 16:51 99 05/26/24 16:39 97 F 79 15 141/100 98 05/26/24 16:38 73 13 141/100 99 GENERAL: sitting up in bed in no acute distress CV: regular rate & rhythm, no murmurs, no edema PULM: Clear to auscultation bilaterally, no work of breathing, on room air ABD: non-tender, nondistended NEURO: no focal deficits, no tremors PSYCH: pleasant affect, mild psychomotor agitation MSK: s/p amputations of multiple distal phalanges on right hand Results - Labs Lab/Micro Results: Lab Results-Last 24 Hours 05/26/24 05/26/24 05/26/24 Range/Units 16:34 17:15 17:15 WBC 5.0 (4.23-9.07) x10^3/uL RBC 3.80 L (4.63-6.08) x10^6/uL Hgb 10.6 L (13.7-17.5) g/dL Hct 31.4 L (40.1-51.0) % MCV 82.6 (79.0-92.2) fL MCH 27.9 (25.7-32.2) pg MCHC 33.8 (32.3-36.5) g/dL RDW 15.0 H (11.6-14.4) % Plt Count 213 (163-337) x10^3/uL MPV 10.1 (9.4-12.4) fL Gran % 72.1 H (34.0-67.9) % Immature Gran % (Auto) 0.0 L (0.001-0.429) % Nucleat RBC Rel Count 0.0 (0.00-0.2) % Eos # (Auto) 0.04 (0.04-0.54) x10^3/uL Immature Gran # (Auto) 0.00 L (0.001-0.031) x10^3u/L Absolute Lymphs (auto) 0.99 L (1.32-3.57) x10^3/uL Absolute Monos (auto) 0.32 (0.30-0.82) x10^3/uL Absolute Nucleated RBC 0.00 (0.00-0.012) x10^3u/L Lymphocytes % 20.0 L (21.8-53.1) % Monocytes % 6.5 (5.3-12.2) % Eosinophils % 0.8 (0.8-7.0) % Basophils % 0.6 (0.2-1.2) % Absolute Granulocytes 3.58 (1.78-5.38) x10^3/uL Basophils # 0.03 (0.01-0.08) x10^3/uL Sodium 131 L (135-145) mmol/L Potassium 5.2 H (3.5-5.1) mmol/L Chloride 100 (98-107) mmol/L Carbon Dioxide 22 (22-30) mmol/L Anion Gap 13.6 (5-15) MEQ/L BUN 32 H (9-20) mg/dL Creatinine 1.33 H (0.66-1.25) mg/dL Estimated GFR 59.3 ML/MIN Glucose 332 H (74-106) mg/dL POC Glucometer 321 H (74 to 106) mg/dL Calcium 9.1 (8.4-10.2) mg/dL Magnesium 1.8 (1.6-2.3) mg/dL Total Bilirubin 0.90 (0.2-1.3) mg/dL AST 37 (17-59) U/L ALT 45 (0-50) U/L Alkaline Phosphatase 134 H (38-126) U/L Troponin I (0.000-0.033) ng/mL Serum Total Protein 6.6 (6.3-8.2) g/dL Albumin 3.8 (3.5-5.0) g/dL Urine Color (Yellow) Urine Appearance (Clear) Urine pH (4.6-8.0) Ur Specific [place] (1.005-1.030) Urine Protein (Negative) Urine Glucose (UA) (Negative) mg/dL Urine Ketones (Negative) Urine Blood (Negative) Urine Nitrite (Negative) Urine Bilirubin (Negative) Urine Urobilinogen (0.2) mg/dL Ur Leukocyte Esterase (Negative) U Hyaline Cast (Auto) (0-2) /LPF Urine Microscopic RBC (0-5) /HPF Urine Microscopic WBC (0-5) /HPF Ur Epithelial Cells (None Seen) /HPF Urine Bacteria (None Seen) /HPF Urine Culture Reflexed (NO) 05/26/24 05/26/24 05/26/24 Range/Units 17:15 19:25 21:10 WBC (4.23-9.07) x10^3/uL RBC (4.63-6.08) x10^6/uL Hgb (13.7-17.5) g/dL Hct (40.1-51.0) % MCV (79.0-92.2) fL MCH (25.7-32.2) pg MCHC (32.3-36.5) g/dL RDW (11.6-14.4) % Plt Count (163-337) x10^3/uL MPV (9.4-12.4) fL Gran % (34.0-67.9) % Immature Gran % (Auto) (0.001-0.429) % Nucleat RBC Rel Count (0.00-0.2) % Eos # (Auto) (0.04-0.54) x10^3/uL Immature Gran # (Auto) (0.001-0.031) x10^3u/L Absolute Lymphs (auto) (1.32-3.57) x10^3/uL Absolute Monos (auto) (0.30-0.82) x10^3/uL Absolute Nucleated RBC (0.00-0.012) x10^3u/L Lymphocytes % (21.8-53.1) % Monocytes % (5.3-12.2) % Eosinophils % (0.8-7.0) % Basophils % (0.2-1.2) % Absolute Granulocytes (1.78-5.38) x10^3/uL Basophils # (0.01-0.08) x10^3/uL Sodium (135-145) mmol/L Potassium (3.5-5.1) mmol/L Chloride (98-107) mmol/L Carbon Dioxide (22-30) mmol/L Anion Gap (5-15) MEQ/L BUN (9-20) mg/dL Creatinine (0.66-1.25) mg/dL Estimated GFR ML/MIN Glucose (74-106) mg/dL POC Glucometer (74 to 106) mg/dL Calcium (8.4-10.2) mg/dL Magnesium (1.6-2.3) mg/dL Total Bilirubin (0.2-1.3) mg/dL AST (17-59) U/L ALT (0-50) U/L Alkaline Phosphatase (38-126) U/L Troponin I 0.088 H* 0.084 H* (0.000-0.033) ng/mL Serum Total Protein (6.3-8.2) g/dL Albumin (3.5-5.0) g/dL Urine Color Yellow (Yellow) Urine Appearance Clear (Clear) Urine pH 5.5 (4.6-8.0) Ur Specific [place] 1.015 (1.005-1.030) Urine Protein 300 A (Negative) Urine Glucose (UA) 500 A (Negative) mg/dL Urine Ketones Negative (Negative) Urine Blood Trace (Negative) Urine Nitrite Negative (Negative) Urine Bilirubin Negative (Negative) Urine Urobilinogen 1.0 A (0.2) mg/dL Ur Leukocyte Esterase Negative (Negative) U Hyaline Cast (Auto) 11-20 (0-2) /LPF Urine Microscopic RBC 0-2 (0-5) /HPF Urine Microscopic WBC 0-2 (0-5) /HPF Ur Epithelial Cells Rare (None Seen) /HPF Urine Bacteria None Seen (None Seen) /HPF Urine Culture Reflexed YES (NO) 05/26/24 Range/Units 21:15 WBC (4.23-9.07) x10^3/uL RBC (4.63-6.08) x10^6/uL Hgb (13.7-17.5) g/dL Hct (40.1-51.0) % MCV (79.0-92.2) fL MCH (25.7-32.2) pg MCHC (32.3-36.5) g/dL RDW (11.6-14.4) % Plt Count (163-337) x10^3/uL MPV (9.4-12.4) fL Gran % (34.0-67.9) % Immature Gran % (Auto) (0.001-0.429) % Nucleat RBC Rel Count (0.00-0.2) % Eos # (Auto) (0.04-0.54) x10^3/uL Immature Gran # (Auto) (0.001-0.031) x10^3u/L Absolute Lymphs (auto) (1.32-3.57) x10^3/uL Absolute Monos (auto) (0.30-0.82) x10^3/uL Absolute Nucleated RBC (0.00-0.012) x10^3u/L Lymphocytes % (21.8-53.1) % Monocytes % (5.3-12.2) % Eosinophils % (0.8-7.0) % Basophils % (0.2-1.2) % Absolute Granulocytes (1.78-5.38) x10^3/uL Basophils # (0.01-0.08) x10^3/uL Sodium 131 L (135-145) mmol/L Potassium 5.5 H (3.5-5.1) mmol/L Chloride 103 (98-107) mmol/L Carbon Dioxide 21 L (22-30) mmol/L Anion Gap 12.7 (5-15) MEQ/L BUN 33 H (9-20) mg/dL Creatinine 1.34 H (0.66-1.25) mg/dL Estimated GFR 58.8 ML/MIN Glucose 254 H (74-106) mg/dL POC Glucometer (74 to 106) mg/dL Calcium 8.9 (8.4-10.2) mg/dL Magnesium (1.6-2.3) mg/dL Total Bilirubin 0.90 (0.2-1.3) mg/dL AST 33 (17-59) U/L ALT 42 (0-50) U/L Alkaline Phosphatase 126 (38-126) U/L Troponin I (0.000-0.033) ng/mL Serum Total Protein 6.3 (6.3-8.2) g/dL Albumin 3.6 (3.5-5.0) g/dL Urine Color (Yellow) Urine Appearance (Clear) Urine pH (4.6-8.0) Ur Specific [place] (1.005-1.030) Urine Protein (Negative) Urine Glucose (UA) (Negative) mg/dL Urine Ketones (Negative) Urine Blood (Negative) Urine Nitrite (Negative) Urine Bilirubin (Negative) Urine Urobilinogen (0.2) mg/dL Ur Leukocyte Esterase (Negative) U Hyaline Cast (Auto) (0-2) /LPF Urine Microscopic RBC (0-5) /HPF Urine Microscopic WBC (0-5) /HPF Ur Epithelial Cells (None Seen) /HPF Urine Bacteria (None Seen) /HPF Urine Culture Reflexed (NO) Accuchecks Date 05/26/24 Time 16:35 - Radiology Impressions Radiology Exams & Impressions: Radiology Procedures Category Date Time Status CHEST 1 VIEW (PORTABLE) Stat Exams 05/26/24 22:54 Taken CXR - no infiltrate, effusion, or edmea. Pacemaker present. (images reviewed personally.) Assessment/Plan (1) Hyperkalemia Current Visit: No Status: Acute Assessment & Plan: 63 y/o M with h/o CKD3, HFrEF, DM2, A-fib, and CVA, here with cramps and hyperkalemia. ## Hyperkalemia - mild, persistent. Patient has CKD, and is still taking his oral potassium supplementation, as well as lisinopril and spironolactone for his CHF. However, his hyperkalemia today is mild. There are no EKG changes, so no need for urgent intervention. As well, with it's chronic nature for the last month, he is somewhat tolerant of higher K levels. - give Kayexalate 30 g PO x1 - monitor on telemetry - discontinue home potassium supplementation - hold spironolactone and lisinopril; at least plan on not starting spironolactone at discharge - repeat BMP in AM ## elevated troponin - chronic, and in fact is lower today than it has been for the last two months. It is highly unlikely to correspond to ACS. He was seen by tele-cardiology Dr. Quiros last week when patient was admitted and said same thing. 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 - stress the importance of follow up with cardiology - may help prevent future admissions based on his chronically mildly elevated troponin ## DM2 - poorly controlled, with HbA1c 10.4 two weeks ago. Glc elevated to 254 on arrival. - continue Lantus 50 units daily from home - place on high-dose sliding scale insulin ## CKD3 - Patient is at his baseline Cr, which tends to run 1.3-1.5. - follow BMP ## Chronic systolic heart failure - with EF 35%. Currently euvolemic. - continue home Lasix 40 mg daily - hold lisinopril and spironolactone as above due to hyperkalemia - hold Jardiance as inpatient; plan to restart on discharge ## hyponatremia - mild, also chronic, and has been around this level as long as patient has been coming to [place] (since 07/2023). Likely related to volume issues from his CHF and his CKD3. When corrected for hyperglycemia, is 133. - follow Na, no need for acute intervention ## CVA - continue atorvastatin 40 - continue Eliquis (do not need additional antiplatelet therapy more than 3 weeks out when on OAC) Code status: Full code Prophylaxis: Eliquis Diet: Diabetic Dispo: place in observation, expect to discharge to home in morning once K levels have improved Code(s): E87.5 - HYPERKALEMIA Telemedicine Encounter - Telemedicine Encounter Telemedicine Encounter: "The entirety of this encounter was performed via Telemedicine" This visit was performed using real-time audio and video connection between my location and thepatients locationwith the assistance of a surrogateat the patients location. Written or verbal consent was obtained from the p atient/guardian to perform this visit usingsynchrHosted Americatelemedicine technology. Any patient questions regarding the telemedicine interaction were answered.
[2024-05-27] MEDS: Kayexylate 15 GM/60 ML PO ONE (00:35)
[2024-05-27] MEDS ORDERED: DESYREL 50 MG PO PRN (02:12)
[2024-05-27] MEDS ORDERED: NON-FORMULARY ITEM (Omeprazole [Omeprazole] 40 MG Capsule.Dr) PO PRN (02:12)
[2024-05-27] MEDS: REQUIP 2MG TAB PO SCH (02:29)
[2024-05-27 04:57] LABS: Hematocrit 28.5 % (40.1-51.0); Hemoglobin 9.8 g/dL (13.7-17.5); Mean Cell Volume 84.1 fL (79.0-92.2); Mean Corpuscular Hemoglobin 28.9 pg (25.7-32.2); Mean Corpuscular Hgb Concent. 34.4 g/dL (32.3-36.5); Mean Platelet Volume 10.6 fL (9.4-12.4); Platelet Count 176 x10^3/uL (163-337); Red Blood Count 3.39 x10^6/uL (4.63-6.08); White Blood Count 4.4 x10^3/uL (4.23-9.07)
[2024-05-27 05:19] LABS: ANION GAP 10.5 MEQ/L (5-15); Calcium 8.7 mg/dL (8.4-10.2); Creatinine 1 1.4 mg/dL (0.66-1.25); EST GLOMERULAR FILTRATION RATE 55.8 ML/MIN; Potassium 5.1 mmol/L (3.5-5.1)
--- NOTE | 2024-05-27 05:36 | PCM.NOTE ---
Date and Time: 05/27/24 0531 Subjective Assessment: HPI: 63 y/o M with h/o HFrEF, DM2, HTN, CVA, CKD3, and A-fib, who presented 05/26/24 from his PCP office with cramps and hyperkalemia. Patient was at his PCP office for followup of hyperkalemia, and was told he was still hyperkalemic and needed to come to the ED. He notes persistent diffuse cramps and muscle spasms, worse than last week. They have now improved after getting fluids in the ED, as well as valium. He denies palpitations or nausea. He had some brief substernal chest pain at rest this afternoon that resolve on its own after a few minutes and has not recurred. He denies diaphoresis, nausea, or numbness. He notes that he continues to take oral potassium supplements at home despite his recent hyperkalemia. Note, patient was admitted one week ago with similar symptoms. At that time he also had mild hyperkalemia, mild chronic elevation in troponin, hyponatremia, and worse renal function. At that time was seen by cardiology, who agreed that patient's chronic mild elevated troponin is not consistent with ACS, and instead is likely due to CKD and CHF. However, patient has not had a cardiac workup since 2009. 05/27/24: Met with patient bedside. No overnight events noted. No longer having cramps/spasms. Labs and vitals stable this morning. Discussed the importance of follow up with his cardiolgist. Will make an appt prior to discharge. Patient verbalizes understanding. Discussed changes to medications. Will discontinue spironolactone/potassium. Denies fever,cough, sob, cp, abdominal pain, KOENIG, dizziness, N/V/D. - Review of Systems Constitutional: No Symptoms Eyes: No Symptoms Ears, Nose, & Throat: No Symptoms Respiratory: No Symptoms Cardiac: No Symptoms Abdominal/Gastrointestinal: No Symptoms Genitourinary Symptoms: No Symptoms Musculoskeletal: No Symptoms Skin: No Symptoms Neurological: No Symptoms Psychological: No Symptoms Endocrine: No Symptoms Hematologic/Lymphatic: No Symptoms Immunological/Allergic: No Symptoms Objective Exam General Appearance: no apparent distress Neurologic Exam: alert, oriented x 3, cooperative Skin Exam: normal color Eye Exam: PERRL Ears, Nose, Throat Exam: normal ENT inspection Neck Exam: normal inspection Respiratory Exam: normal breath sounds, lungs clear Cardiovascular Exam: regular rate/rhythm, normal heart sounds Gastrointestinal/Abdomen Exam: soft, normal bowel sounds Extremity Exam: swelling (BLE +1) Back Exam: normal inspection Male Genitalia Exam: deferred Rectal Exam: deferred Objective Data Vital Signs: Vital Signs - 24 hr Temp Pulse Resp BP BP Pulse Ox 05/27/24 04:00 19 05/27/24 03:59 97.9 F 78 19 113/73 99 05/27/24 00:00 97.3 F 87 18 157/97 99 05/26/24 23:56 97.3 F 87 18 157/97 99 05/26/24 23:28 100 05/26/24 23:01 76 26 H 128/99 99 05/26/24 22:30 84 15 153/98 98 05/26/24 22:18 76 20 150/88 100 05/26/24 22:17 75 12 100 05/26/24 22:10 70 18 99 05/26/24 22:01 82 20 05/26/24 21:31 76 15 141/83 05/26/24 21:30 81 10 L 05/26/24 21:20 73 20 05/26/24 21:10 76 17 05/26/24 21:01 73 14 05/26/24 20:32 81 17 146/86 05/26/24 20:00 78 19 133/94 100 05/26/24 19:30 80 14 158/94 05/26/24 19:00 77 16 157/90 88 L 05/26/24 18:50 75 17 96 05/26/24 18:40 72 21 84 L 05/26/24 18:30 73 21 91 L 05/26/24 18:20 76 19 84 L 05/26/24 18:10 79 24 98 05/26/24 18:03 81 22 91 L 05/26/24 17:30 77 19 148/87 89 L 05/26/24 17:01 81 24 142/97 100 05/26/24 16:51 99 05/26/24 16:39 97 F 79 15 141/100 98 05/26/24 16:38 73 13 141/100 99 Pain Assessment - Last Documented Pain Intensity 8 Intake and Output: Intake & Output 05/24/24 05/25/24 05/26/24 05/27/24 11:59 11:59 11:59 11:59 Intake Total 883 Balance 883 Weight 76.9 kg Lab Results: Lab Results-Last 24 Hours 05/26/24 05/26/24 05/26/24 Range/Units 16:34 17:15 17:15 WBC 5.0 (4.23-9.07) x10^3/uL RBC 3.80 L (4.63-6.08) x10^6/uL Hgb 10.6 L (13.7-17.5) g/dL Hct 31.4 L (40.1-51.0) % MCV 82.6 (79.0-92.2) fL MCH 27.9 (25.7-32.2) pg MCHC 33.8 (32.3-36.5) g/dL RDW 15.0 H (11.6-14.4) % Plt Count 213 (163-337) x10^3/uL MPV 10.1 (9.4-12.4) fL Gran % 72.1 H (34.0-67.9) % Immature Gran % (Auto) 0.0 L (0.001-0.429) % Nucleat RBC Rel Count 0.0 (0.00-0.2) % Eos # (Auto) 0.04 (0.04-0.54) x10^3/uL Immature Gran # (Auto) 0.00 L (0.001-0.031) x10^3u/L Absolute Lymphs (auto) 0.99 L (1.32-3.57) x10^3/uL Absolute Monos (auto) 0.32 (0.30-0.82) x10^3/uL Absolute Nucleated RBC 0.00 (0.00-0.012) x10^3u/L Lymphocytes % 20.0 L (21.8-53.1) % Monocytes % 6.5 (5.3-12.2) % Eosinophils % 0.8 (0.8-7.0) % Basophils % 0.6 (0.2-1.2) % Absolute Granulocytes 3.58 (1.78-5.38) x10^3/uL Basophils # 0.03 (0.01-0.08) x10^3/uL Sodium 131 L (135-145) mmol/L Potassium 5.2 H (3.5-5.1) mmol/L Chloride 100 (98-107) mmol/L Carbon Dioxide 22 (22-30) mmol/L Anion Gap 13.6 (5-15) MEQ/L BUN 32 H (9-20) mg/dL Creatinine 1.33 H (0.66-1.25) mg/dL Estimated GFR 59.3 ML/MIN Glucose 332 H (74-106) mg/dL POC Glucometer 321 H (74 to 106) mg/dL Calcium 9.1 (8.4-10.2) mg/dL Magnesium 1.8 (1.6-2.3) mg/dL Total Bilirubin 0.90 (0.2-1.3) mg/dL AST 37 (17-59) U/L ALT 45 (0-50) U/L Alkaline Phosphatase 134 H (38-126) U/L Troponin I (0.000-0.033) ng/mL Serum Total Protein 6.6 (6.3-8.2) g/dL Albumin 3.8 (3.5-5.0) g/dL Urine Color (Yellow) Urine Appearance (Clear) Urine pH (4.6-8.0) Ur Specific Balfour (1.005-1.030) Urine Protein (Negative) Urine Glucose (UA) (Negative) mg/dL Urine Ketones (Negative) Urine Blood (Negative) Urine Nitrite (Negative) Urine Bilirubin (Negative) Urine Urobilinogen (0.2) mg/dL Ur Leukocyte Esterase (Negative) U Hyaline Cast (Auto) (0-2) /LPF Urine Microscopic RBC (0-5) /HPF Urine Microscopic WBC (0-5) /HPF Ur Epithelial Cells (None Seen) /HPF Urine Bacteria (None Seen) /HPF Urine Culture Reflexed (NO) 05/26/24 05/26/24 05/26/24 Range/Units 17:15 19:25 21:10 WBC (4.23-9.07) x10^3/uL RBC (4.63-6.08) x10^6/uL Hgb (13.7-17.5) g/dL Hct (40.1-51.0) % MCV (79.0-92.2) fL MCH (25.7-32.2) pg MCHC (32.3-36.5) g/dL RDW (11.6-14.4) % Plt Count (163-337) x10^3/uL MPV (9.4-12.4) fL Gran % (34.0-67.9) % Immature Gran % (Auto) (0.001-0.429) % Nucleat RBC Rel Count (0.00-0.2) % Eos # (Auto) (0.04-0.54) x10^3/uL Immature Gran # (Auto) (0.001-0.031) x10^3u/L Absolute Lymphs (auto) (1.32-3.57) x10^3/uL Absolute Monos (auto) (0.30-0.82) x10^3/uL Absolute Nucleated RBC (0.00-0.012) x10^3u/L Lymphocytes % (21.8-53.1) % Monocytes % (5.3-12.2) % Eosinophils % (0.8-7.0) % Basophils % (0.2-1.2) % Absolute Granulocytes (1.78-5.38) x10^3/uL Basophils # (0.01-0.08) x10^3/uL Sodium (135-145) mmol/L Potassium (3.5-5.1) mmol/L Chloride (98-107) mmol/L Carbon Dioxide (22-30) mmol/L Anion Gap (5-15) MEQ/L BUN (9-20) mg/dL Creatinine (0.66-1.25) mg/dL Estimated GFR ML/MIN Glucose (74-106) mg/dL POC Glucometer (74 to 106) mg/dL Calcium (8.4-10.2) mg/dL Magnesium (1.6-2.3) mg/dL Total Bilirubin (0.2-1.3) mg/dL AST (17-59) U/L ALT (0-50) U/L Alkaline Phosphatase (38-126) U/L Troponin I 0.088 H* 0.084 H* (0.000-0.033) ng/mL Serum Total Protein (6.3-8.2) g/dL Albumin (3.5-5.0) g/dL Urine Color Yellow (Yellow) Urine Appearance Clear (Clear) Urine pH 5.5 (4.6-8.0) Ur Specific Balfour 1.015 (1.005-1.030) Urine Protein 300 A (Negative) Urine Glucose (UA) 500 A (Negative) mg/dL Urine Ketones Negative (Negative) Urine Blood Trace (Negative) Urine Nitrite Negative (Negative) Urine Bilirubin Negative (Negative) Urine Urobilinogen 1.0 A (0.2) mg/dL Ur Leukocyte Esterase Negative (Negative) U Hyaline Cast (Auto) 11-20 (0-2) /LPF Urine Microscopic RBC 0-2 (0-5) /HPF Urine Microscopic WBC 0-2 (0-5) /HPF Ur Epithelial Cells Rare (None Seen) /HPF Urine Bacteria None Seen (None Seen) /HPF Urine Culture Reflexed YES (NO) 05/26/24 05/27/24 05/27/24 Range/Units 21:15 04:45 04:45 WBC 4.4 (4.23-9.07) x10^3/uL RBC 3.39 L (4.63-6.08) x10^6/uL Hgb 9.8 L (13.7-17.5) g/dL Hct 28.5 L (40.1-51.0) % MCV 84.1 (79.0-92.2) fL MCH 28.9 (25.7-32.2) pg MCHC 34.4 (32.3-36.5) g/dL RDW 15.0 H (11.6-14.4) % Plt Count 176 (163-337) x10^3/uL MPV 10.6 (9.4-12.4) fL Gran % (34.0-67.9) % Immature Gran % (Auto) (0.001-0.429) % Nucleat RBC Rel Count (0.00-0.2) % Eos # (Auto) (0.04-0.54) x10^3/uL Immature Gran # (Auto) (0.001-0.031) x10^3u/L Absolute Lymphs (auto) (1.32-3.57) x10^3/uL Absolute Monos (auto) (0.30-0.82) x10^3/uL Absolute Nucleated RBC (0.00-0.012) x10^3u/L Lymphocytes % (21.8-53.1) % Monocytes % (5.3-12.2) % Eosinophils % (0.8-7.0) % Basophils % (0.2-1.2) % Absolute Granulocytes (1.78-5.38) x10^3/uL Basophils # (0.01-0.08) x10^3/uL Sodium 131 L 132 L (135-145) mmol/L Potassium 5.5 H 5.1 (3.5-5.1) mmol/L Chloride 103 105 (98-107) mmol/L Carbon Dioxide 21 L 21 L (22-30) mmol/L Anion Gap 12.7 10.5 (5-15) MEQ/L BUN 33 H 32 H (9-20) mg/dL Creatinine 1.34 H 1.40 H (0.66-1.25) mg/dL Estimated GFR 58.8 55.8 ML/MIN Glucose 254 H 306 H (74-106) mg/dL POC Glucometer (74 to 106) mg/dL Calcium 8.9 8.7 (8.4-10.2) mg/dL Magnesium (1.6-2.3) mg/dL Total Bilirubin 0.90 (0.2-1.3) mg/dL AST 33 (17-59) U/L ALT 42 (0-50) U/L Alkaline Phosphatase 126 (38-126) U/L Troponin I (0.000-0.033) ng/mL Serum Total Protein 6.3 (6.3-8.2) g/dL Albumin 3.6 (3.5-5.0) g/dL Urine Color (Yellow) Urine Appearance (Clear) Urine pH (4.6-8.0) Ur Specific Balfour (1.005-1.030) Urine Protein (Negative) Urine Glucose (UA) (Negative) mg/dL Urine Ketones (Negative) Urine Blood (Negative) Urine Nitrite (Negative) Urine Bilirubin (Negative) Urine Urobilinogen (0.2) mg/dL Ur Leukocyte Esterase (Negative) U Hyaline Cast (Auto) (0-2) /LPF Urine Microscopic RBC (0-5) /HPF Urine Microscopic WBC (0-5) /HPF Ur Epithelial Cells (None Seen) /HPF Urine Bacteria (None Seen) /HPF Urine Culture Reflexed (NO) Radiology Exams: Radiology Procedures Category Date Time Status CHEST 1 VIEW (PORTABLE) Stat Exams 05/26/24 22:54 Taken Assessment/Plan (1) Hyperkalemia Current Visit: Yes Status: Acute Assessment & Plan: -on admission 5.5 - now resolved after receiving kayexalate at 5.1 -continue to monitor on tele -hold lisinopril - dc spironolactone Code(s): E87.5 - HYPERKALEMIA (2) CKD (chronic kidney disease) stage 3, GFR 30-59 ml/min Current Visit: Yes Status: Acute Assessment & Plan: -baseline around 1.3-1.5 ] -holding lisinopril -Jardiance at baseline at 1.40 -avoid nephrotoxic meds/NSAIDS/KERMIT/ARB Code(s): N18.30 - CHRONIC KIDNEY DISEASE, STAGE 3 UNSPECIFIED (3) Systolic CHF Current Visit: Yes Status: Acute Assessment & Plan: - continue home Lasix 40 mg daily - hold lisinopril and spironolactone as above due to hyperkalemia - hold Jardiance as inpatient; plan to restart on discharge Code(s): I50.20 - UNSPECIFIED SYSTOLIC (CONGESTIVE) HEART FAILURE (4) Elevated troponin Current Visit: No Status: Acute Assessment & Plan: - chronic, trending lower than it has been for the last two months. Highly unlikely to correspond to ACS. -Reviewed previous admission - seen by tele-cardiology Dr. Quiros last week when patient was admitted and said same thing. 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 - stress the importance of follow up with cardiology - may help prevent future admissions based on his chronically mildly elevated troponin Code(s): R79.89 - OTHER SPECIFIED ABNORMAL FINDINGS OF BLOOD CHEMISTRY (5) CVA (cerebral vascular accident) Current Visit: Yes Status: Acute Assessment & Plan: -continue atorvastatin/eliquis Code(s): I63.9 - CEREBRAL INFARCTION, UNSPECIFIED (6) Type II diabetes mellitus Current Visit: No Status: Chronic Qualifiers: Diabetes mellitus complication status: with kidney complications Diabetes mellitus complication detail: with chronic kidney disease Assessment & Plan: -A1c 140.4 -SSi - high dose -Lantus 50 units -ADA diet (7) Hyponatremia Current Visit: Yes Status: Acute Assessment & Plan: -mild, chronic - corrected for hyperglycemia at 135 -Likely related to volume issues from his CHF and his CKD3 Code status: Full code Prophylaxis: Eliquis Diet: Diabetic Dispo: place in observation Code(s): E87.1 - HYPO-OSMOLALITY AND HYPONATREMIA
[2024-05-27] MEDS ORDERED: Protonix 40MG Tablet PO PRN (07:32)
[2024-05-27] MEDS: HUMALOG SQ PRN (08:16)
--- NOTE | 2024-05-27 09:00 | XRAY ---
Indication: Pain. Comparison: May 17, 2024 Portable apical lordotic chest remains clear again with a few incidental tiny calcified granulomas. Heart borderline enlarged again with left pacemaker. Bony thorax intact with mild degenerative changes. No new/acute findings.
[2024-05-27] MEDS ORDERED: NON-FORMULARY ITEM (Duloxetine Hcl [Cymbalta] 60 MG Capsule.Dr) PO SCH (10:00)
[2024-05-27] MEDS: Cymbalta 30 MG Capsule PO SCH (10:05)
[2024-05-27] MEDS: Lasix 40 MG PO SCH (10:05)
[2024-05-27] MEDS: Neurontin PO SCH (10:05)
[2024-05-27] MEDS: COREG 12.5 MG PO SCH (10:05)
[2024-05-27] MEDS: ELIQUIS 2.5 MG TABLET PO SCH (10:05)
[2024-05-27] MEDS: Lantus Insulin SQ SCH (10:06)
[2024-05-27] MEDS ORDERED: ZOCOR 20MG ONE (23:59)
[2024-05-28] MEDS: ZOCOR 20MG PO SCH (00:01)
[2024-05-28 04:36] LABS: Absolute Neutrophil Ct (ANC) 3.12 x10^3/uL (1.78-5.38); BASOPHIL % 0.9 % (0.2-1.2); Basophil (Absolute #) 0.04 x10^3/uL (0.01-0.08); Eosinophil % 1.7 % (0.8-7.0); Eosinophil (Absolute #) 0.08 x10^3/uL (0.04-0.54); Hematocrit 30.3 % (40.1-51.0); IMMATURE GRAN # 0.01 x10^3u/L (0.001-0.031); IMMATURE GRAN % 0.2 % (0.001-0.429); Lymphocytes % 23.7 % (21.8-53.1); Mean Cell Volume 84.6 fL (79.0-92.2); Mean Corpuscular Hemoglobin 27.9 pg (25.7-32.2); Mean Platelet Volume 9.8 fL (9.4-12.4); Monocytes % 6.5 % (5.3-12.2); Platelet Count 170 x10^3/uL (163-337); Red Blood Count 3.58 x10^6/uL (4.63-6.08); Red Cell Distribution Width 15.4 % (11.6-14.4); White Blood Count 4.7 x10^3/uL (4.23-9.07)
[2024-05-28 05:09] LABS: ALBUMIN 3.3 g/dL (3.5-5.0); ANION GAP 8.3 MEQ/L (5-15); BILIRUBIN,TOTAL 0.6 mg/dL (0.2-1.3); Calcium 8.6 mg/dL (8.4-10.2); Creatinine 1 1.03 mg/dL (0.66-1.25); EST GLOMERULAR FILTRATION RATE 80.6 ML/MIN; Potassium 3.9 mmol/L (3.5-5.1); Total Protein 6.2 g/dL (6.3-8.2)
--- NOTE | 2024-05-28 05:55 | PCM.DS ---
Discharge Summary Date of Admission: 05/26/24 23:25 Date of Discharge: 05/28/24 Admitting Physician: KATY TREVINO MD Primary Care Provider: ROGELIO CAVAZOS DO Allergies Allergies diphenhydramine [From Benadryl] Allergy (Verified 05/26/24 16:42) Difficulty Breathing Iodinated Contrast Media Allergy (Verified 05/26/24 16:42) Difficulty Breathing Hospital Summary - Hospital Course Hospital Course: 63 y/o M with h/o HFrEF, DM2, HTN, CVA, CKD3, and A-fib, who presented 05/26/24 from his PCP office with cramps and hyperkalemia. Patient was at his PCP office for followup of hyperkalemia, and was told he was still hyperkalemic and needed to come to the ED. He notes persistent diffuse cramps and muscle spasms, worse than last week. They have now improved after getting fluids in the ED, as well as valium. He denies palpitations or nausea. He had some brief substernal chest pain at rest this afternoon that resolve on its own after a few minutes and has not recurred. He denies diaphoresis, nausea, or numbness. He notes that he continues to take oral potassium supplements at home despite his recent hyperkalemia. Note, patient was admitted one week ago with similar symptoms. At that time he also had mild hyperkalemia, mild chronic elevation in troponin, hyponatremia, and worse renal function. At that time was seen by cardiology, who agreed that patient's chronic mild elevated troponin is not consistent with ACS, and instead is likely due to CKD and CHF. However, patient has not had a cardiac workup since 2009 and needs follow up. This will be scheduled prior to discharge. 05/27/24: Met with patient bedside. No overnight events noted. No longer having cramps/spasms. Labs and vitals stable this morning. Discussed the importance of follow up with his cardiolgist. Will make an appt prior to discharge. Patient verbalizes understanding. Discussed changes to medications. Will discontinue spironolactone/potassium. Denies fever,cough, sob, cp, abdominal pain, KOENIG, dizziness, N/V/D. 05/28: Hyperkalemia, hyperglycemia, and MARILU resolved. Advised discontinuation of spironolactone. Resume lisinopril/Jardiance. Low dose potassium. Discussed the importance of follow up with cardiology- appt moved up. Discharge Note New Diagnosis: Hyperkalemia New Medications: discontinue spironolactone Follow Up: cardiology/pcp Latest Assessment & Plan (1) Hyperkalemia Current Visit: Yes Status: Acute Assessment & Plan: -on admission 5.5 - now resolved after receiving kayexalate at 5.1 -continue to monitor on tele -hold lisinopril - dc spironolactone 05/28: -Resolved Code(s): E87.5 - HYPERKALEMIA (2) CKD (chronic kidney disease) stage 3, GFR 30-59 ml/min Current Visit: Yes Status: Acute Assessment & Plan: -baseline around 1.3-1.5 ] -holding lisinopril -Jardiance at baseline at 1.40 -avoid nephrotoxic meds/NSAIDS/KERMIT/ARB Code(s): N18.30 - CHRONIC KIDNEY DISEASE, STAGE 3 UNSPECIFIED (3) Systolic CHF Current Visit: Yes Status: Acute Assessment & Plan: - continue home Lasix 40 mg daily - hold lisinopril and spironolactone as above due to hyperkalemia - hold Jardiance as inpatient; plan to restart on discharge Code(s): I50.20 - UNSPECIFIED SYSTOLIC (CONGESTIVE) HEART FAILURE (4) Elevated troponin Current Visit: No Status: Acute Assessment & Plan: - chronic, trending lower than it has been for the last two months. Highly unlikely to correspond to ACS. -Reviewed previous admission - seen by tele-cardiology Dr. Quiros last week when patient was admitted and said same thing. 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 - stress the importance of follow up with cardiology - may help prevent future admissions based on his chronically mildly elevated troponin Code(s): R79.89 - OTHER SPECIFIED ABNORMAL FINDINGS OF BLOOD CHEMISTRY (5) CVA (cerebral vascular accident) Current Visit: Yes Status: Acute Assessment & Plan: -continue atorvastatin/eliquis Code(s): I63.9 - CEREBRAL INFARCTION, UNSPECIFIED (6) Type II diabetes mellitus Current Visit: No Status: Chronic Qualifiers: Diabetes mellitus complication status: with kidney complications Diabetes mellitus complication detail: with chronic kidney disease Assessment & Plan: -A1c 140.4 -SSi - high dose -Lantus 50 units -ADA diet (7) Hyponatremia Current Visit: Yes Status: Acute Assessment & Plan: -mild, chronic - corrected for hyperglycemia at 135 -Likely related to volume issues from his CHF and his CKD3 05/28: resolved I spent 35 minutes [id number] with the patient on the day of discharge perform ing discharge exam, discussing hospital stay and discharge instructions with patient and caregivers, preparation of discharge records, prescriptions & referral forms and addressing any questions/concerns the patient had as documented above. - Vitals & Intake/Output Vital Signs: Vital Signs Temperature 97.8 F 05/28/24 00:00 Pulse Rate 74 05/28/24 00:00 Respiratory Rate 18 05/28/24 00:00 Blood Pressure 114/73 05/28/24 05:42 O2 Sat by Pulse Oximetry 96 05/28/24 04:00 Intake & Output: Intake & Output 05/25/24 05/26/24 05/27/24 05/28/24 11:59 11:59 11:59 11:59 Intake Total 1003 480 Output Total 2300 Balance 1003 -1820 Weight 76.9 kg - Lab Result Diagrams: 05/28/24 04:25 05/28/24 04:25 Lab Results-Last 24 Hrs: Lab Results-Last 24 Hours 05/27/24 05/27/24 05/27/24 Range/Units 07:16 11:34 16:21 WBC (4.23-9.07) x10^3/uL RBC (4.63-6.08) x10^6/uL Hgb (13.7-17.5) g/dL Hct (40.1-51.0) % MCV (79.0-92.2) fL MCH (25.7-32.2) pg MCHC (32.3-36.5) g/dL RDW (11.6-14.4) % Plt Count (163-337) x10^3/uL MPV (9.4-12.4) fL Gran % (34.0-67.9) % Immature Gran % (Auto) (0.001-0.429) % Nucleat RBC Rel Count (0.00-0.2) % Eos # (Auto) (0.04-0.54) x10^3/uL Immature Gran # (Auto) (0.001-0.031) x10^3u/L Absolute Lymphs (auto) (1.32-3.57) x10^3/uL Absolute Monos (auto) (0.30-0.82) x10^3/uL Absolute Nucleated RBC (0.00-0.012) x10^3u/L Lymphocytes % (21.8-53.1) % Monocytes % (5.3-12.2) % Eosinophils % (0.8-7.0) % Basophils % (0.2-1.2) % Absolute Granulocytes (1.78-5.38) x10^3/uL Basophils # (0.01-0.08) x10^3/uL Sodium (135-145) mmol/L Potassium (3.5-5.1) mmol/L Chloride (98-107) mmol/L Carbon Dioxide (22-30) mmol/L Anion Gap (5-15) MEQ/L BUN (9-20) mg/dL Creatinine (0.66-1.25) mg/dL Estimated GFR ML/MIN Glucose (74-106) mg/dL POC Glucometer 301 H 98 227 H (74 to 106) mg/dL Calcium (8.4-10.2) mg/dL Total Bilirubin (0.2-1.3) mg/dL AST (17-59) U/L ALT (0-50) U/L Alkaline Phosphatase (38-126) U/L Serum Total Protein (6.3-8.2) g/dL Albumin (3.5-5.0) g/dL 05/27/24 05/28/24 05/28/24 Range/Units 20:45 04:25 04:25 WBC 4.7 (4.23-9.07) x10^3/uL RBC 3.58 L (4.63-6.08) x10^6/uL Hgb 10.0 L (13.7-17.5) g/dL Hct 30.3 L (40.1-51.0) % MCV 84.6 (79.0-92.2) fL MCH 27.9 (25.7-32.2) pg MCHC 33.0 (32.3-36.5) g/dL RDW 15.4 H (11.6-14.4) % Plt Count 170 (163-337) x10^3/uL MPV 9.8 (9.4-12.4) fL Gran % 67.0 (34.0-67.9) % Immature Gran % (Auto) 0.2 (0.001-0.429) % Nucleat RBC Rel Count 0.0 (0.00-0.2) % Eos # (Auto) 0.08 (0.04-0.54) x10^3/uL Immature Gran # (Auto) 0.01 (0.001-0.031) x10^3u/L Absolute Lymphs (auto) 1.10 L (1.32-3.57) x10^3/uL Absolute Monos (auto) 0.30 (0.30-0.82) x10^3/uL Absolute Nucleated RBC 0.00 (0.00-0.012) x10^3u/L Lymphocytes % 23.7 (21.8-53.1) % Monocytes % 6.5 (5.3-12.2) % Eosinophils % 1.7 (0.8-7.0) % Basophils % 0.9 (0.2-1.2) % Absolute Granulocytes 3.12 (1.78-5.38) x10^3/uL Basophils # 0.04 (0.01-0.08) x10^3/uL Sodium 137 (135-145) mmol/L Potassium 3.9 D (3.5-5.1) mmol/L Chloride 106 (98-107) mmol/L Carbon Dioxide 26 (22-30) mmol/L Anion Gap 8.3 (5-15) MEQ/L BUN 27 H (9-20) mg/dL Creatinine 1.03 (0.66-1.25) mg/dL Estimated GFR 80.6 ML/MIN Glucose 154 H (74-106) mg/dL POC Glucometer 193 H (74 to 106) mg/dL Calcium 8.6 (8.4-10.2) mg/dL Total Bilirubin 0.60 (0.2-1.3) mg/dL AST 32 (17-59) U/L ALT 40 (0-50) U/L Alkaline Phosphatase 155 H (38-126) U/L Serum Total Protein 6.2 L (6.3-8.2) g/dL Albumin 3.3 L (3.5-5.0) g/dL Micro Results-Entire Visit: Accuchecks Date 05/27/24 Date 05/27/24 Time 21:00 - Radiology Exams Ordered Rad Exams-Entire Visit: Radiology Procedures Category Date Time Status CHEST 1 VIEW (PORTABLE) Stat Exams 05/26/24 22:54 Completed Discharge Exam General Appearance: no apparent distress Neurologic Exam: alert, oriented x 3, cooperative Eye Exam: PERRL Ears, Nose, Throat Exam: normal ENT inspection Neck Exam: normal inspection Respiratory Exam: normal breath sounds, lungs clear Cardiovascular Exam: regular rate/rhythm, normal heart sounds Gastrointestinal/Abdomen Exam: soft, normal bowel sounds Male Genitalia Exam: deferred Rectal Exam: deferred Back Exam: normal inspection Extremity Exam: normal inspection Skin Exam: normal color Final Diagnosis/Problem List - Final Discharge Diagnosis/Problem (1) Hyperkalemia Current Visit: Yes Status: Resolved Code(s): E87.5 - HYPERKALEMIA (2) CKD (chronic kidney disease) stage 3, GFR 30-59 ml/min Current Visit: Yes Status: Chronic Code(s): N18.30 - CHRONIC KIDNEY DISEASE, STAGE 3 UNSPECIFIED (3) Systolic CHF Current Visit: Yes Status: Chronic Code(s): I50.20 - UNSPECIFIED SYSTOLIC (CONGESTIVE) HEART FAILURE (4) Elevated troponin Current Visit: No Status: Chronic Code(s): R79.89 - OTHER SPECIFIED ABNORMAL FINDINGS OF BLOOD CHEMISTRY (5) CVA (cerebral vascular accident) Current Visit: Yes Status: Chronic Code(s): I63.9 - CEREBRAL INFARCTION, UNSPECIFIED (6) Type II diabetes mellitus Current Visit: No Status: Chronic (7) Hyponatremia Current Visit: Yes Status: Resolved Code(s): E87.1 - HYPO-OSMOLALITY AND HYPONATREMIA - Discharge Disposition: Home, Self-Care Condition: Stable Prescriptions: New Potassium Chloride 10 meq PO DAILY 30 Days #30 tablet Continue Duloxetine HCl [Cymbalta] 60 mg PO BID Ropinirole 2Mg [Requip 2Mg Tab] 2 mg PO HS Insulin Glargine [Lantus Insulin] 50 unit SQ DAILY Apixaban [Eliquis 2.5 mg Tablet] 5 mg PO BID 30 Days #60 tablet Furosemide 40 mg [Lasix 40 MG] 40 mg PO DAILY 30 Days #30 tablet Empagliflozin [Jardiance] 25 mg PO DAILY Carvedilol 12.5 mg [Coreg 12.5 mg] 12.5 mg PO BID 30 Days #60 tablet Trazodone HCl 50 mg [Desyrel 50 mg] 50 mg PO HS PRN 30 Days #30 tablet PRN Reason: Insomnia Atorvastatin Calcium [Lipitor 40Mg] 40 mg PO HS 30 Days #30 tablet Gabapentin [Neurontin ] 100 mg PO TID 30 Days #90 cap Omeprazole 40 mg PO DAILY PRN 30 Days #30 cap PRN Reason: Indigestion Lisinopril 10 mg [Zestril 10 MG] 10 mg PO DAILY 30 Days #30 tablet Insulin Lispro [Humalog] 3 unit SQ TIDWM 30 Days #100 units Insulin Lispro [Humalog] 0 unit SQ ACHS Discontinued Spironolactone 25 mg [Aldactone 25 MG] 25 mg PO DAILY 30 Days #30 tablet Potassium Chloride 20 meq PO DAILY Instructions: Chest pain - Discharge instructions Follow up with: ROGELIO CAVAZOS DO [Primary Care Provider] - 06/01/24 3:30 pm FIONA BOBO PA [NON-STAFF PHY W/O PRIVILEGES] - 06/17/24 9:45 am (At [facility]) Forms: Discharge Instructions
[2024-05-28] MEDS: LIPITOR 40MG PO SCH (07:30)
[2024-05-28 12:25] VITALS: BP 138/73; PULSE 79; RESP 16; TEMP 96; O2SAT 100
== END 2024-05-28 11:59 | disposition home or self-care (01) ==
LOC: ED 15:37 → MED SURG 23:25
PROVIDERS: ADMIT Internal Medicine; ATTEND Internal Medicine
DX: E87.5 Hyperkalemia (principal); E11.22 Type 2 diabetes mellitus with diabetic chronic kidney disease; Z59.12 Inadequate housing utilities; I12.9 Hypertensive chronic kidney disease with stage 1 through stage 4 chronic kidney disease, or unspecified chronic kidney disease; I50.20 Unspecified systolic (congestive) heart failure; N18.30 Chronic kidney disease, stage 3 unspecified; I48.91 Unspecified atrial fibrillation; I63.9 Cerebral infarction, unspecified; E87.1 Hypo-osmolality and hyponatremia; Z79.899 Other long term (current) drug therapy; G47.30 Sleep apnea, unspecified
CPT/HCPCS: 36415; 71045; 80048; 80053; 81001; 82947; 83735; 84484; 85025; 85027; 87086; 93005; 93041; 94760; 96360; 96361; 96374; 99285; Q3014; 93268; J1817; J3360; A9270-GY; G0378

== ENCOUNTER 2024-05-31 18:41 | Observation (INO) | payer MEDICARE ==
[2024-05-31] MEDS ORDERED: DUONEB 0.5-3 MG/3 ml Neb IH ONE (19:00)
[2024-05-31 19:15] LABS: Absolute Neutrophil Ct (ANC) 3.83 x10^3/uL (1.78-5.38); BASOPHIL % 0.7 % (0.2-1.2); Basophil (Absolute #) 0.04 x10^3/uL (0.01-0.08); Eosinophil % 1.1 % (0.8-7.0); Eosinophil (Absolute #) 0.06 x10^3/uL (0.04-0.54); Hematocrit 30.7 % (40.1-51.0); Hemoglobin 10.2 g/dL (13.7-17.5); IMMATURE GRAN # 0.02 x10^3u/L (0.001-0.031); IMMATURE GRAN % 0.4 % (0.001-0.429); Lymphocytes % 20.5 % (21.8-53.1); Mean Corpuscular Hemoglobin 28.6 pg (25.7-32.2); Mean Corpuscular Hgb Concent. 33.2 g/dL (32.3-36.5); Mean Platelet Volume 10.6 fL (9.4-12.4); Monocyte (Absolute #) 0.32 x10^3/uL (0.30-0.82); Neutrophil % 71.3 % (34.0-67.9); Platelet Count 197 x10^3/uL (163-337); Red Blood Count 3.57 x10^6/uL (4.63-6.08); Red Cell Distribution Width 15.2 % (11.6-14.4); White Blood Count 5.4 x10^3/uL (4.23-9.07)
[2024-05-31 19:15] LABS: VBG BASE EXCESS 2.9 (-2.0-2.0); VBG CARBOXYHEMOGLOBIN 3.6 % T HGB (0.0-6.9); VBG HCO3- 28.5 meq/L (22-28); VBG HEMOGLOBIN 10.8; VBG O2 SATURATION 62.1 (95-100); VBG pH 7.39 (7.32-7.42)
[2024-05-31] MEDS: DUONEB 0.5-3 MG/3 ml Neb IH ONE (19:18)
--- NOTE | 2024-05-31 19:24 | ERPHSYRPT ---
- History of Present Illness Time Seen by Provider: 05/31/24 18:46 Source: patient Exam Limitations: no limitations Patient Subjective Stated Complaint: C/O SOB that started around 12noon today while fishing. Patient came into ER to be checked out due to his SOB has become worse and is now also accompanied by chest pain that began about 20 minutes before arriving at the ER today. Triage Nursing Assessment: Patient brought back to ER in a W/C. He transferred self from chair to bed. He is alert and oriented. No SOB noted. No cough. SALINAS WNL. Some edema to BLE. Physician History: 63-year-old male with multiple medical problems including atrial fibrillation with pacemaker, on Eliquis, hypertension, coronary artery disease, chronic troponin leak, bundle branch ablation, diabetes mellitus poorly controlled with multiple amputations in the fingers, congestive heart failure, multiple hospitalizations presented in the ER with feeling short of breath since noon time with exertion and sometimes even resting with associated chest tightness and pressure and 20 minutes prior to arrival started to have dull aching subst ernal chest pain nonradiating. Denies any fever or chills. Has chronic cough which is not any worse than usual. No lower extremity swellings. Allergies/Adverse Reactions: diphenhydramine [From Benadryl] Allergy (Verified 05/31/24 22:19) Difficulty Breathing Iodinated Contrast Media Allergy (Verified 05/31/24 22:19) Difficulty Breathing Home Medications: Duloxetine HCl [Cymbalta] 60 mg PO BID 07/28/23 [History] Insulin Glargine [Lantus Insulin] 50 unit SQ DAILY 07/28/23 [History] Ropinirole 2Mg [Requip 2Mg Tab] 2 mg PO HS 07/28/23 [History] Empagliflozin [Jardiance] 25 mg PO DAILY 01/29/24 [History] Insulin Lispro [Humalog] 0 unit SQ ACHS 05/07/24 [History] Lisinopril 10 mg [Zestril 10 MG] 10 mg PO HS 05/31/24 [History] Hx Tetanus, Diphtheria Vaccination/Date Given: Yes Hx Influenza Vaccination/Date Given: Yes Hx Pneumococcal Vaccination/Date Given: Yes Immunizations Up to Date: Yes Travel Risk - International Travel Have you traveled outside of the country in past 3 weeks: No - Emerging Infectious Disease Are you exhibiting symptoms associated with any current EIDs: Yes Symptoms: Shortness of Breath - Review of Systems Constitutional: Fatigue Eyes: No Symptoms Ears, Nose, & Throat: No Symptoms Respiratory: Cough, Dyspnea, Dyspnea on Exertion (TERESA) Cardiac: Chest Pain, Edema Abdominal/Gastrointestinal: No Symptoms Genitourinary Symptoms: No Symptoms Musculoskeletal: Arthralgias, Deformity Skin: No Symptoms Neurological: No Symptoms Hematologic/Lymphatic: No Symptoms Immunological/Allergic: No Symptoms - Past Medical History Pertinent Past Medical History: Yes Neurological History: Peripheral Neuropathy, Stroke ENT History: Cataracts Cardiac History: Arrhythmia, Congestive Heart Failure, High Cholesterol, Hypertension Respiratory History: CHF, COPD, Sleep Apnea Endocrine Medical History: Diabetes Type II Musculoskeletal History: Arthritis, Osteoarthritis, Other GI Medical History: GERD, Gallbladder Disease History: Renal Disease Psycho-Social History: Anxiety, Depression Male Reproductive Disorders: No Pertinent History Other Medical History: a.fib, restless leg, bulging discs cervical spine, carpal tunnel - Past Surgical History Past Surgical History: Yes Neuro Surgical History: No Pertinent History Cardiac: Pacemaker Respiratory: No Pertinent History Gastrointestinal: Cholecystectomy Genitourinary: No Pertinent History Musculoskeletal: Amputation Male Surgical History: No Pertinent History Other Surgical History: cardiac ablation, 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 Right hand 1st/2nd partial amputations Significant Family History: no pertinent family hx (No family history pertaining to this admission reported) - Social History Smoking Status: Never smoker Exposure to second hand smoke: Yes Drug Use: none Patient Lives Alone: No - Social Determinants of Health Will the patient participate in the screening: Yes Do you worry about a steady place to live?: No Do you have any problems with any of the following?: No known problems In the past 12 months,have you had to go without utilities?: No Transportation Issues: Yes Has anyone in your support network made you feel unsafe?: No Have you or anyone in your house had to go without enough: No - Nursing Vital Signs Nursing Vital Signs: Initial Vital Signs Temperature 97.4 F 05/31/24 18:44 Pulse Rate 75 05/31/24 18:44 Respiratory Rate 19 05/31/24 18:44 Blood Pressure 161/102 05/31/24 18:44 O2 Sat by Pulse Oximetry 100 05/31/24 18:44 Pain Scale Pain Intensity 4 - Physical Exam General Appearance: no apparent distress, alert Eye Exam: PERRL/EOMI Ears, Nose, Throat Exam: hearing grossly normal Neck Exam: normal inspection, full range of motion Respiratory Exam: diminished breath sounds, rhonchi, No respiratory distress Cardiovascular/Chest Exam: normal heart sounds, edema, irregular Abdominal/Gastrointestinal Exam: soft, normal bowel sounds, No tenderness Extremity Exam: non-tender, normal range of motion, No normal inspection (Multiple amputations of fingers) Neurologic Exam: alert, oriented x 3, cooperative Skin Exam: normal color SpO2 Interpretation: normal SpO2: 100 O2 Delivery: Room Air - Course EKG Interpreted by Me: RATE (76), Sinus Rhythm, Right [place] Deviation, prolonged QT interval, Q-wave, Non-specific ST Changes Ordered Tests: Medication Summary Generic Name Dose Route Start Last Admin Trade Name Freq PRN Reason Stop Dose Admin Acetaminophen 325 mg 06/01/24 00:00 Acetaminophen 325 Mg Tablet PO 07/01/24 00:00 Q4H PRN PRN PAIN, FEVER, HEADACHE Apixaban 5 mg 06/01/24 10:00 06/02/24 22:09 Apixaban 2.5 Mg Tablet PO 07/01/24 09:59 5 mg BID JUAN Administration Atorvastatin Calcium 40 mg 06/01/24 22:00 06/02/24 22:10 Atorvastatin Calcium 40 Mg Tablet PO 07/01/24 21:59 40 mg HS JUAN Administration Carvedilol 12.5 mg 06/01/24 10:00 06/02/24 22:09 Carvedilol 12.5 Mg Tablet PO 07/01/24 09:59 12.5 mg BID JUAN Administration Duloxetine HCl 60 mg 06/01/24 10:00 06/02/24 22:09 Duloxetine Hcl 30 Mg Cap PO 07/01/24 09:59 60 mg BID JUAN Administration Empagliflozin 25 mg 06/01/24 10:00 06/02/24 09:45 Empagliflozin 10 Mg Tablet PO 07/01/24 09:59 25 mg DAILY JUAN Administration Gabapentin 100 mg 06/01/24 10:00 06/02/24 22:09 Gabapentin 100 Mg Capsule PO 07/01/24 09:59 100 mg TID JUAN Administration Insulin Glargine 50 unit 06/01/24 10:00 06/02/24 09:46 Insulin Glargine 1 Unit SQ 07/01/24 09:59 50 unit DAILY JUAN Administration Insulin Human Lispro 0 unit 05/31/24 23:32 06/02/24 22:09 Insulin Lispro 1 Unit SQ 06/30/24 23:31 11 unit UD PRN Administration HYPERGLYCEMIA Pantoprazole Sodium 40 mg 06/01/24 10:00 06/02/24 09:46 Protonix (Pantoprazole) 40 Mg Tablet PO 07/01/24 09:59 40 mg DAILY JUAN Administration Ropinirole HCl 2 mg 06/01/24 22:00 06/02/24 22:09 Ropinirole Hcl 2 Mg Tablet PO 07/01/24 21:59 2 mg HS JUAN Administration Trazodone HCl 50 mg 06/01/24 06:57 06/01/24 21:19 Trazodone Hcl 50 Mg Tablet PO 07/01/24 06:56 50 mg HS PRN PRN Administration INSOMNIA Discontinued Medications Generic Name Dose Route Start Last Admin Trade Name Freq PRN Reason Stop Dose Admin Albuterol/Ipratropium 3 ml 05/31/24 18:50 05/31/24 19:18 Ipratropium/Albuterol Sulfate 3 Ml Ampul.Neb IH 05/31/24 18:51 3 ml STAT ONE Administration Albuterol/Ipratropium Confirm 05/31/24 19:00 Ipratropium/Albuterol Sulfate 3 Ml Ampul.Neb Administered 05/31/24 19:01 Dose 3 ml IH .STK-MED ONE Albuterol/Ipratropium 3 ml 06/01/24 01:00 06/01/24 01:21 Ipratropium/Albuterol Sulfate 3 Ml Ampul.Neb 07/01/24 00:59 Not Given Q6HRT JUAN Duloxetine HCl Confirm 06/01/24 00:13 Duloxetine Hcl 30 Mg Cap Administered 06/01/24 00:14 Dose 60 mg .ROUTE .STK-MED ONE Enoxaparin Sodium 40 mg 06/01/24 10:00 Enoxaparin Sodium 40 Mg/0.4 Ml Syringe SQ 07/01/24 09:59 DAILY JUAN Furosemide 40 mg 05/31/24 20:15 05/31/24 20:28 Furosemide 40 Mg/4 Ml Vial IV 05/31/24 20:16 40 mg STAT ONE Administration Furosemide Confirm 05/31/24 20:26 Furosemide 40 Mg/4 Ml Vial Administered 05/31/24 20:27 Dose 40 mg .ROUTE .STK-MED ONE Furosemide 40 mg 06/01/24 00:15 06/01/24 00:18 Furosemide 40 Mg/4 Ml Vial IV 07/01/24 00:14 Not Given Q12H JUAN Furosemide 40 mg 06/01/24 10:00 06/01/24 21:14 Furosemide 40 Mg/4 Ml Vial IV 07/01/24 09:59 40 mg Q12HT JUAN Administration Furosemide 40 mg 06/02/24 10:00 06/02/24 09:44 Furosemide 40 Mg Tablet PO 07/02/24 09:59 40 mg DAILY JUAN Administration Insulin Human Regular 10 unit 05/31/24 20:12 05/31/24 20:28 Insulin Regular, Human 1 Unit IV 05/31/24 20:13 10 unit STAT ONE Administration Insulin Human Regular Confirm 05/31/24 20:26 Insulin Regular, Human 1 Unit Administered 05/31/24 20:27 Dose 10 unit .ROUTE .STK-MED ONE Non-Formulary Medication 60 mg 06/01/24 10:00 06/01/24 00:17 Duloxetine Hcl [Cymbalta] PO 07/01/24 09:59 60 mg BID UJAN Administration Non-Formulary Medication 40 mg 06/01/24 00:01 Omeprazole [Omeprazole] PO DAILY PRN INDIGESTION Ropinirole HCl Confirm 06/01/24 00:14 Ropinirole Hcl 2 Mg Tablet Administered 06/01/24 00:15 Dose 2 mg .ROUTE .STK-MED ONE Trazodone HCl 50 mg 06/01/24 00:01 06/01/24 00:15 Trazodone Hcl 50 Mg Tablet PO 07/01/24 00:00 50 mg HS PRN Administration INSOMNIA Lab/Rad Data: Laboratory Result Diagrams 05/31/24 19:15 05/31/24 19:15 Laboratory Results 05/31/24 05/31/24 05/31/24 Range/Units 21:32 19:44 19:15 WBC (4.23-9.07) x10^3/uL RBC (4.63-6.08) x10^6/uL Hgb (13.7-17.5) g/dL Hct (40.1-51.0) % MCV (79.0-92.2) fL MCH (25.7-32.2) pg MCHC (32.3-36.5) g/dL RDW (11.6-14.4) % Plt Count (163-337) x10^3/uL MPV (9.4-12.4) fL Gran % (34.0-67.9) % Immature Gran % (Auto) (0.001-0.429) % Nucleat RBC Rel Count (0.00-0.2) % Eos # (Auto) (0.04-0.54) x10^3/uL Immature Gran # (Auto) (0.001-0.031) x10^3u/L Absolute Lymphs (auto) (1.32-3.57) x10^3/uL Absolute Monos (auto) (0.30-0.82) x10^3/uL Absolute Nucleated RBC (0.00-0.012) x10^3u/L Lymphocytes % (21.8-53.1) % Monocytes % (5.3-12.2) % Eosinophils % (0.8-7.0) % Basophils % (0.2-1.2) % Absolute Granulocytes (1.78-5.38) x10^3/uL Basophils # (0.01-0.08) x10^3/uL pO2/FiO2 Ratio % VBG pH (7.32-7.42) VBG pCO2 at Pat Temp (42-55) mm/Hg VBG pO2 at Pat Temp (25-40) mm/Hg VBG HCO3 (22-28) meq/L VBG O2 Sat (Miriam) (95-100) VBG Base Excess (-2.0-2.0) VBG Hemoglobin VBG Carboxyhemoglobin (0.0-6.9) % T HGB POC Potassium (3.5-5.1) Sodium (135-145) mmol/L Potassium (3.5-5.1) mmol/L Chloride (98-107) mmol/L Carbon Dioxide (22-30) mmol/L Anion Gap (5-15) MEQ/L BUN (9-20) mg/dL Creatinine (0.66-1.25) mg/dL Estimated GFR ML/MIN Glucose (74-106) mg/dL POC Glucometer 406 H (74 to 106) mg/dL Lactic Acid (0.4-2.0) Calcium (8.4-10.2) mg/dL Magnesium (1.6-2.3) mg/dL Total Bilirubin (0.2-1.3) mg/dL AST (17-59) U/L ALT (0-50) U/L Alkaline Phosphatase (38-126) U/L Troponin I (0.000-0.033) ng/mL NT-Pro-B Natriuret Pep (<300) pg/mL Serum Total Protein (6.3-8.2) g/dL Albumin (3.5-5.0) g/dL Lipase 19 L (23-300) U/L Urine Color Yellow (Yellow) Urine Appearance Clear (Clear) Urine pH 5.0 (4.6-8.0) Ur Specific [place] 1.025 (1.005-1.030) Urine Protein 300 A (Negative) Urine Glucose (UA) >=1000 A (Negative) mg/dL Urine Ketones Negative (Negative) Urine Blood Small A (Negative) Urine Nitrite Negative (Negative) Urine Bilirubin Negative (Negative) Urine Urobilinogen 0.2 (0.2) mg/dL Ur Leukocyte Esterase Negative (Negative) U Hyaline Cast (Auto) 3-5 A (0-2) /LPF Urine Microscopic RBC 0-2 (0-5) /HPF Urine Microscopic WBC 0-2 (0-5) /HPF Ur Epithelial Cells None Seen (None Seen) /HPF Urine Bacteria None Seen (None Seen) /HPF Urine Culture Reflexed NO (NO) 05/31/24 05/31/24 05/31/24 Range/Units 19:15 19:15 19:15 WBC 5.4 (4.23-9.07) x10^3/uL RBC 3.57 L (4.63-6.08) x10^6/uL Hgb 10.2 L (13.7-17.5) g/dL Hct 30.7 L (40.1-51.0) % MCV 86.0 (79.0-92.2) fL MCH 28.6 (25.7-32.2) pg MCHC 33.2 (32.3-36.5) g/dL RDW 15.2 H (11.6-14.4) % Plt Count 197 (163-337) x10^3/uL MPV 10.6 (9.4-12.4) fL Gran % 71.3 H (34.0-67.9) % Immature Gran % (Auto) 0.4 (0.001-0.429) % Nucleat RBC Rel Count 0.0 (0.00-0.2) % Eos # (Auto) 0.06 (0.04-0.54) x10^3/uL Immature Gran # (Auto) 0.02 (0.001-0.031) x10^3u/L Absolute Lymphs (auto) 1.10 L (1.32-3.57) x10^3/uL Absolute Monos (auto) 0.32 (0.30-0.82) x10^3/uL Absolute Nucleated RBC 0.00 (0.00-0.012) x10^3u/L Lymphocytes % 20.5 L (21.8-53.1) % Monocytes % 6.0 (5.3-12.2) % Eosinophils % 1.1 (0.8-7.0) % Basophils % 0.7 (0.2-1.2) % Absolute Granulocytes 3.83 (1.78-5.38) x10^3/uL Basophils # 0.04 (0.01-0.08) x10^3/uL pO2/FiO2 Ratio % VBG pH (7.32-7.42) VBG pCO2 at Pat Temp (42-55) mm/Hg VBG pO2 at Pat Temp (25-40) mm/Hg VBG HCO3 (22-28) meq/L VBG O2 Sat (Miriam) (95-100) VBG Base Excess (-2.0-2.0) VBG Hemoglobin VBG Carboxyhemoglobin (0.0-6.9) % T HGB POC Potassium (3.5-5.1) Sodium 127 L (135-145) mmol/L Potassium 5.7 H (3.5-5.1) mmol/L Chloride 94 L (98-107) mmol/L Carbon Dioxide 21 L (22-30) mmol/L Anion Gap 18.0 H (5-15) MEQ/L BUN 37 H (9-20) mg/dL Creatinine 1.24 (0.66-1.25) mg/dL Estimated GFR 64.5 ML/MIN Glucose 643 H* (74-106) mg/dL POC Glucometer (74 to 106) mg/dL Lactic Acid (0.4-2.0) Calcium 8.9 (8.4-10.2) mg/dL Magnesium 1.6 (1.6-2.3) mg/dL Total Bilirubin 0.80 (0.2-1.3) mg/dL AST 30 (17-59) U/L ALT 38 (0-50) U/L Alkaline Phosphatase 189 H (38-126) U/L Troponin I 0.119 H* (0.000-0.033) ng/mL NT-Pro-B Natriuret Pep 09448 (<300) pg/mL Serum Total Protein 7.0 (6.3-8.2) g/dL Albumin 4.0 (3.5-5.0) g/dL Lipase (23-300) U/L Urine Color (Yellow) Urine Appearance (Clear) Urine pH (4.6-8.0) Ur Specific [place] (1.005-1.030) Urine Protein (Negative) Urine Glucose (UA) (Negative) mg/dL Urine Ketones (Negative) Urine Blood (Negative) Urine Nitrite (Negative) Urine Bilirubin (Negative) Urine Urobilinogen (0.2) mg/dL Ur Leukocyte Esterase (Negative) U Hyaline Cast (Auto) (0-2) /LPF Urine Microscopic RBC (0-5) /HPF Urine Microscopic WBC (0-5) /HPF Ur Epithelial Cells (None Seen) /HPF Urine Bacteria (None Seen) /HPF Urine Culture Reflexed (NO) 05/31/24 05/31/24 Range/Units 19:08 19:08 WBC (4.23-9.07) x10^3/uL RBC (4.63-6.08) x10^6/uL Hgb (13.7-17.5) g/dL Hct (40.1-51.0) % MCV (79.0-92.2) fL MCH (25.7-32.2) pg MCHC (32.3-36.5) g/dL RDW (11.6-14.4) % Plt Count (163-337) x10^3/uL MPV (9.4-12.4) fL Gran % (34.0-67.9) % Immature Gran % (Auto) (0.001-0.429) % Nucleat RBC Rel Count (0.00-0.2) % Eos # (Auto) (0.04-0.54) x10^3/uL Immature Gran # (Auto) (0.001-0.031) x10^3u/L Absolute Lymphs (auto) (1.32-3.57) x10^3/uL Absolute Monos (auto) (0.30-0.82) x10^3/uL Absolute Nucleated RBC (0.00-0.012) x10^3u/L Lymphocytes % (21.8-53.1) % Monocytes % (5.3-12.2) % Eosinophils % (0.8-7.0) % Basophils % (0.2-1.2) % Absolute Granulocytes (1.78-5.38) x10^3/uL Basophils # (0.01-0.08) x10^3/uL pO2/FiO2 Ratio 21.0 % VBG pH 7.39 (7.32-7.42) VBG pCO2 at Pat Temp 47 (42-55) mm/Hg VBG pO2 at Pat Temp 35 (25-40) mm/Hg VBG HCO3 28.5 H (22-28) meq/L VBG O2 Sat (Miriam) 62.1 L (95-100) VBG Base Excess 2.9 H (-2.0-2.0) VBG Hemoglobin 10.8 VBG Carboxyhemoglobin 3.6 (0.0-6.9) % T HGB POC Potassium 6.0 H* (3.5-5.1) Sodium (135-145) mmol/L Potassium (3.5-5.1) mmol/L Chloride (98-107) mmol/L Carbon Dioxide (22-30) mmol/L Anion Gap (5-15) MEQ/L BUN (9-20) mg/dL Creatinine (0.66-1.25) mg/dL Estimated GFR ML/MIN Glucose (74-106) mg/dL POC Glucometer (74 to 106) mg/dL Lactic Acid 1.6 (0.4-2.0) Calcium (8.4-10.2) mg/dL Magnesium (1.6-2.3) mg/dL Total Bilirubin (0.2-1.3) mg/dL AST (17-59) U/L ALT (0-50) U/L Alkaline Phosphatase (38-126) U/L Troponin I (0.000-0.033) ng/mL NT-Pro-B Natriuret Pep (<300) pg/mL Serum Total Protein (6.3-8.2) g/dL Albumin (3.5-5.0) g/dL Lipase (23-300) U/L Urine Color (Yellow) Urine Appearance (Clear) Urine pH (4.6-8.0) Ur Specific [place] (1.005-1.030) Urine Protein (Negative) Urine Glucose (UA) (Negative) mg/dL Urine Ketones (Negative) Urine Blood (Negative) Urine Nitrite (Negative) Urine Bilirubin (Negative) Urine Urobilinogen (0.2) mg/dL Ur Leukocyte Esterase (Negative) U Hyaline Cast (Auto) (0-2) /LPF Urine Microscopic RBC (0-5) /HPF Urine Microscopic WBC (0-5) /HPF Ur Epithelial Cells (None Seen) /HPF Urine Bacteria (None Seen) /HPF Urine Culture Reflexed (NO) - Progress Progress: re-examined Air Movement: good Progress Note: 05/31/24 21:30 63-year-old with multiple medical problems including congestive heart failure, atrial fibrillation on Eliquis, hypertension, poorly controlled diabetes mellitus is evaluated for shortness of breath and chest pain. EKG is sinus rhythm with no acute ST elevations. Has chronic changes. Patient does not want any aspirin. He is anticoagulated on Eliquis. Chest x-ray is negative for any acute cardiopulmonary findings reviewed by me, official report is pending. On room air oxygen saturation around 96%. He is given DuoNeb, Lasix, on reevaluation feeling better. Chest x-ray no acute cardiopulmonary findings. In itial troponin 0.119 and BNP of 17,000 which is almost doubled from previous done few days ago. Patient has a normal white count, chemistries with a glucose of 640s and mildly low bicarb of 21 and negative ketones in the urine. Normal pH 7.39. I do not think patient is in DKA but has hyperglycemia. Given IV insulin. I believe patient's pain and shortness of breath is secondary to CHF and would benefit with IV diuresis. I have shared the results of workup with patient plan of admission which she understands and agrees. Discussed with Dr. Box and patient is being admitted to hospitalist service. Blood Culture(s) Obtained: No Antibiotics given: No Discussed with Dr.: Other (Dr. Box hospitalist) Will see patient in: hospital (observation) Counseled pt/family regarding: lab results, diagnosis, need for follow-up, rad results Medical Desision Making - Discussion of managment Care discussed with:: hospitalist Reviewed:: Test results Agreed on:: Treatment plan, place in obs Will see patient: in hospital - Diagnostic Testing Diagnostic test were ordered, analyzed, and reviewed by me: Yes Radiological Interpretation: Interpreted by me, Reviewed by me - Risk of complications The pt has a mod risk of morbidity or mortality based on: Need for prescription drug management The pt has a high risk of morbidity or mortality based on: Decision regarding hospitilization or escalation of hosp level of care - Departure Departure Disposition: Observation Clinical Impression: Acute exacerbation of CHF (congestive heart failure), Hyperglycemia Condition: Stable Critical Care Time: No
[2024-05-31 19:38] LABS: BILIRUBIN,TOTAL 0.8 mg/dL (0.2-1.3); Calcium 8.9 mg/dL (8.4-10.2); Creatinine 1 1.24 mg/dL (0.66-1.25); EST GLOMERULAR FILTRATION RATE 64.5 ML/MIN; MAGNESIUM 1.6 mg/dL (1.6-2.3); Potassium 5.7 mmol/L (3.5-5.1)
[2024-05-31 20:14] LABS: Appearance Clear (Clear); Bacteria None Seen /HPF (None Seen); Bilirubin Negative (Negative); Blood Small (Negative); Epithelial Cells None Seen /HPF (None Seen); Glucose, Urine >=1000 mg/dL (Negative); Ketones Negative (Negative); Leukocyte Esterase Negative (Negative); Nitrite Negative (Negative); Protein,Urine Dip 300 (Negative); RBC 0-2 /HPF (0-5); Specific Gravity 1.025 (1.005-1.030); Urobilinogen 0.2 mg/dL (0.2); WBC 0-2 /HPF (0-5)
[2024-05-31] MEDS ORDERED: Lasix 40 MG/4 ML ONE (20:26)
[2024-05-31] MEDS ORDERED: HUMULIN R ONE (20:26)
[2024-05-31] MEDS: Lasix 40 MG/4 ML IV ONE (20:28)
[2024-05-31] MEDS: HUMULIN R IV ONE (20:28)
--- NOTE | 2024-05-31 22:04 | XRAY ---
Indication: Short of breath. Chest pain. Comparison: May 26, 2024 Portable apical lordotic chest unchanged again inflated and clear with a few incidental tiny calcified granulomas. Heart not enlarged again with left pacemaker. No new/acute findings.
[2024-05-31] MEDS: HUMALOG SQ PRN (23:50)
--- NOTE | 2024-05-31 23:54 | PCM.HP ---
History of Present Illness - Chief Complaint Chief Complaint: CHF Exacerbation Date: 05/31/24 History of Present Illness: is a 63 year old male with a past medical history significant for hypertension, diabetes, hyperlipidemia and CHF who presents to the hospital with complaints of increasing shortness of breath. He was felt to be in fluid over and treated with IV lasix, leading to improvement in symptoms. No fever/chills. No chest pain or palpitations. No nausea, vomiting or diarrhea. He does admit to eating canned vegetables but other denies adding salt to his foods. - Review of Systems Constitutional: No Fever, No Chills Eyes: No Vision Changes Ears, Nose, & Throat: No Nose Discharge, No Sinus Drainage Respiratory: Short Of Breath, No Cough, No Orthopnea Cardiac: Edema, No Chest Pain, No Palpitations Abdominal/Gastrointestinal: No Abdominal Pain, No Nausea, No Vomiting Genitourinary Symptoms: No Dysuria, No Frequency, No Hematuria Musculoskeletal: No Back Pain, No Neck Pain Skin: No Cellulitis Neurological: No Dizziness, No Focal Weakness Psychological: No Suicidal Ideations Endocrine: No Polyuria Medications & Allergies Home Medications: Home Medication List Duloxetine HCl [Cymbalta] 60 mg PO BID 07/28/23 [History Confirmed 05/31/24] Insulin Glargine [Lantus Insulin] 50 unit SQ DAILY 07/28/23 [History Confirmed 05/31/24] Ropinirole 2Mg [Requip 2Mg Tab] 2 mg PO HS 07/28/23 [History Confirmed 05/31/24] Apixaban [Eliquis 2.5 mg Tablet] 5 mg PO BID 30 Days #60 tablet 07/30/23 [Rx Confirmed 05/31/24] Furosemide 40 mg [Lasix 40 MG] 40 mg PO DAILY 30 Days #30 tablet 07/31/23 [Rx Confirmed 05/31/24] Empagliflozin [Jardiance] 25 mg PO DAILY 01/29/24 [History Confirmed 05/31/24] Atorvastatin Calcium [Lipitor 40Mg] 40 mg PO HS 30 Days #30 tablet 02/26/24 [Rx Confirmed 05/31/24] Carvedilol 12.5 mg [Coreg 12.5 mg] 12.5 mg PO BID 30 Days #60 tablet 02/26/24 [Rx Confirmed 05/31/24] Gabapentin [Neurontin ] 100 mg PO TID 30 Days #90 cap 02/26/24 [Rx Confirmed 05/31/24] Insulin Lispro [Humalog] 3 unit SQ TIDWM 30 Days #100 units 02/26/24 [Rx Confirmed 05/31/24] Omeprazole 40 mg PO DAILY PRN 30 Days #30 cap 02/26/24 [Rx Confirmed 05/31/24] Trazodone HCl 50 mg [Desyrel 50 mg] 50 mg PO HS PRN 30 Days #30 tablet 02/26/24 [Rx Confirmed 05/31/24] Insulin Lispro [Humalog] 0 unit SQ ACHS 05/07/24 [History Confirmed 05/31/24] Potassium Chloride 10 meq PO DAILY 30 Days #30 tablet 05/28/24 [Rx Confirmed 05/31/24] Lisinopril 10 mg [Zestril 10 MG] 10 mg PO HS 05/31/24 [History Confirmed 05/31/24] Allergies/Adverse Reactions: Allergies Allergy/AdvReac Type Severity Reaction Status Date / Time diphenhydramine Allergy Difficulty Verified 05/31/24 22:19 [From Benadryl] Breathing Iodinated Contrast Media Allergy Difficulty Verified 05/31/24 22:19 Breathing - Past Medical History Past Medical History: Yes Neurological History: Peripheral Neuropathy, Stroke ENT History: Cataracts Cardiac History: Arrhythmia, Congestive Heart Failure, High Cholesterol, Hypertension Respiratory History: CHF, COPD, Sleep Apnea Endocrine Medical History: Diabetes Type II Musculoskelatal History: Arthritis, Osteoarthritis, Other GI Medical History: GERD, Gallbladder Disease History: Renal Disease Pyscho-Social History: Anxiety, Depression Male Reproductive Disorders: No Pertinent History Comment: a.fib, restless leg, bulging discs cervical spine, carpal tunnel - Past Surgical History Past Surgical History: Yes Neuro Surgical History: No Pertinent History Cardiac History: Pacemaker Respiratory Surgery: No Pertinent History GI Surgical History: Cholecystectomy Genitourinary Surgical Hx: No Pertinent History Musculskeletal Surgical Hx: Amputation Male Surgical History: No Pertinent History Other Surgical History: cardiac ablation, 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 Right hand 1st/2nd partial amputations Significant Family History: no pertinent family hx (No family history pertaining to this admission reported) - Social History Smoking Status: Never smoker Exposure to second hand smoke: Yes Alcohol: None Drug Use: none - Social Determinants of Health Will the patient participate in the screening: Yes Do you worry about a steady place to live?: No Do you have any problems with any of the following?: No known problems In the past 12 months,have you had to go without utilities?: No Have you or anyone in your house had to go without enough: No Transportation Issues: No Has anyone in your support network made you feel unsafe?: No Does the patient want assistance with any of the above?: No Comment: pt has no running water, would like assistance - Physical Exam Vital Signs: Vital Signs - 24 hr Temp Pulse Resp BP BP Pulse Ox 05/31/24 22:06 97.8 F 81 18 136/80 99 05/31/24 21:43 80 16 141/83 100 05/31/24 21:37 100 05/31/24 21:00 75 23 160/94 100 05/31/24 20:31 75 19 160/94 100 05/31/24 20:01 76 18 158/101 05/31/24 19:31 76 19 154/89 05/31/24 19:18 76 20 100 05/31/24 19:01 82 28 H 150/119 100 05/31/24 18:47 161/102 05/31/24 18:44 97.4 F 75 19 161/102 100 General Appearance: no apparent distress, alert Neurologic Exam: alert, oriented x 3 Ears, Nose, Throat Exam: moist mucous membranes Neck Exam: supple Respiratory Exam: No respiratory distress Cardiovascular Exam: regular rate/rhythm Gastrointestinal/Abdomen Exam: soft Extremity Exam: No pedal edema, No swelling Skin Exam: normal color, No rash Results - Labs Lab/Micro Results: Lab Results-Last 24 Hours 05/31/24 05/31/24 05/31/24 Range/Units 19:08 19:08 19:15 WBC 5.4 (4.23-9.07) x10^3/uL RBC 3.57 L (4.63-6.08) x10^6/uL Hgb 10.2 L (13.7-17.5) g/dL Hct 30.7 L (40.1-51.0) % MCV 86.0 (79.0-92.2) fL MCH 28.6 (25.7-32.2) pg MCHC 33.2 (32.3-36.5) g/dL RDW 15.2 H (11.6-14.4) % Plt Count 197 (163-337) x10^3/uL MPV 10.6 (9.4-12.4) fL Gran % 71.3 H (34.0-67.9) % Immature Gran % (Auto) 0.4 (0.001-0.429) % Nucleat RBC Rel Count 0.0 (0.00-0.2) % Eos # (Auto) 0.06 (0.04-0.54) x10^3/uL Immature Gran # (Auto) 0.02 (0.001-0.031) x10^3u/L Absolute Lymphs (auto) 1.10 L (1.32-3.57) x10^3/uL Absolute Monos (auto) 0.32 (0.30-0.82) x10^3/uL Absolute Nucleated RBC 0.00 (0.00-0.012) x10^3u/L Lymphocytes % 20.5 L (21.8-53.1) % Monocytes % 6.0 (5.3-12.2) % Eosinophils % 1.1 (0.8-7.0) % Basophils % 0.7 (0.2-1.2) % Absolute Granulocytes 3.83 (1.78-5.38) x10^3/uL Basophils # 0.04 (0.01-0.08) x10^3/uL pO2/FiO2 Ratio 21.0 % VBG pH 7.39 (7.32-7.42) VBG pCO2 at Pat Temp 47 (42-55) mm/Hg VBG pO2 at Pat Temp 35 (25-40) mm/Hg VBG HCO3 28.5 H (22-28) meq/L VBG O2 Sat (Miriam) 62.1 L (95-100) VBG Base Excess 2.9 H (-2.0-2.0) VBG Hemoglobin 10.8 VBG Carboxyhemoglobin 3.6 (0.0-6.9) % T HGB POC Potassium 6.0 H* (3.5-5.1) Sodium (135-145) mmol/L Potassium (3.5-5.1) mmol/L Chloride (98-107) mmol/L Carbon Dioxide (22-30) mmol/L Anion Gap (5-15) MEQ/L BUN (9-20) mg/dL Creatinine (0.66-1.25) mg/dL Estimated GFR ML/MIN Glucose (74-106) mg/dL POC Glucometer (74 to 106) mg/dL Lactic Acid 1.6 (0.4-2.0) Calcium (8.4-10.2) mg/dL Magnesium (1.6-2.3) mg/dL Total Bilirubin (0.2-1.3) mg/dL AST (17-59) U/L ALT (0-50) U/L Alkaline Phosphatase (38-126) U/L Troponin I (0.000-0.033) ng/mL NT-Pro-B Natriuret Pep (<300) pg/mL Serum Total Protein (6.3-8.2) g/dL Albumin (3.5-5.0) g/dL Lipase (23-300) U/L Urine Color (Yellow) Urine Appearance (Clear) Urine pH (4.6-8.0) Ur Specific [place] (1.005-1.030) Urine Protein (Negative) Urine Glucose (UA) (Negative) mg/dL Urine Ketones (Negative) Urine Blood (Negative) Urine Nitrite (Negative) Urine Bilirubin (Negative) Urine Urobilinogen (0.2) mg/dL Ur Leukocyte Esterase (Negative) U Hyaline Cast (Auto) (0-2) /LPF Urine Microscopic RBC (0-5) /HPF Urine Microscopic WBC (0-5) /HPF Ur Epithelial Cells (None Seen) /HPF Urine Bacteria (None Seen) /HPF Urine Culture Reflexed (NO) 05/31/24 05/31/24 05/31/24 Range/Units 19:15 19:15 19:15 WBC (4.23-9.07) x10^3/uL RBC (4.63-6.08) x10^6/uL Hgb (13.7-17.5) g/dL Hct (40.1-51.0) % MCV (79.0-92.2) fL MCH (25.7-32.2) pg MCHC (32.3-36.5) g/dL RDW (11.6-14.4) % Plt Count (163-337) x10^3/uL MPV (9.4-12.4) fL Gran % (34.0-67.9) % Immature Gran % (Auto) (0.001-0.429) % Nucleat RBC Rel Count (0.00-0.2) % Eos # (Auto) (0.04-0.54) x10^3/uL Immature Gran # (Auto) (0.001-0.031) x10^3u/L Absolute Lymphs (auto) (1.32-3.57) x10^3/uL Absolute Monos (auto) (0.30-0.82) x10^3/uL Absolute Nucleated RBC (0.00-0.012) x10^3u/L Lymphocytes % (21.8-53.1) % Monocytes % (5.3-12.2) % Eosinophils % (0.8-7.0) % Basophils % (0.2-1.2) % Absolute Granulocytes (1.78-5.38) x10^3/uL Basophils # (0.01-0.08) x10^3/uL pO2/FiO2 Ratio % VBG pH (7.32-7.42) VBG pCO2 at Pat Temp (42-55) mm/Hg VBG pO2 at Pat Temp (25-40) mm/Hg VBG HCO3 (22-28) meq/L VBG O2 Sat (Miriam) (95-100) VBG Base Excess (-2.0-2.0) VBG Hemoglobin VBG Carboxyhemoglobin (0.0-6.9) % T HGB POC Potassium (3.5-5.1) Sodium 127 L (135-145) mmol/L Potassium 5.7 H (3.5-5.1) mmol/L Chloride 94 L (98-107) mmol/L Carbon Dioxide 21 L (22-30) mmol/L Anion Gap 18.0 H (5-15) MEQ/L BUN 37 H (9-20) mg/dL Creatinine 1.24 (0.66-1.25) mg/dL Estimated GFR 64.5 ML/MIN Glucose 643 H* (74-106) mg/dL POC Glucometer (74 to 106) mg/dL Lactic Acid (0.4-2.0) Calcium 8.9 (8.4-10.2) mg/dL Magnesium 1.6 (1.6-2.3) mg/dL Total Bilirubin 0.80 (0.2-1.3) mg/dL AST 30 (17-59) U/L ALT 38 (0-50) U/L Alkaline Phosphatase 189 H (38-126) U/L Troponin I 0.119 H* (0.000-0.033) ng/mL NT-Pro-B Natriuret Pep 76094 (<300) pg/mL Serum Total Protein 7.0 (6.3-8.2) g/dL Albumin 4.0 (3.5-5.0) g/dL Lipase 19 L (23-300) U/L Urine Color (Yellow) Urine Appearance (Clear) Urine pH (4.6-8.0) Ur Specific [place] (1.005-1.030) Urine Protein (Negative) Urine Glucose (UA) (Negative) mg/dL Urine Ketones (Negative) Urine Blood (Negative) Urine Nitrite (Negative) Urine Bilirubin (Negative) Urine Urobilinogen (0.2) mg/dL Ur Leukocyte Esterase (Negative) U Hyaline Cast (Auto) (0-2) /LPF Urine Microscopic RBC (0-5) /HPF Urine Microscopic WBC (0-5) /HPF Ur Epithelial Cells (None Seen) /HPF Urine Bacteria (None Seen) /HPF Urine Culture Reflexed (NO) 05/31/24 05/31/24 05/31/24 Range/Units 19:44 21:32 22:35 WBC (4.23-9.07) x10^3/uL RBC (4.63-6.08) x10^6/uL Hgb (13.7-17.5) g/dL Hct (40.1-51.0) % MCV (79.0-92.2) fL MCH (25.7-32.2) pg MCHC (32.3-36.5) g/dL RDW (11.6-14.4) % Plt Count (163-337) x10^3/uL MPV (9.4-12.4) fL Gran % (34.0-67.9) % Immature Gran % (Auto) (0.001-0.429) % Nucleat RBC Rel Count (0.00-0.2) % Eos # (Auto) (0.04-0.54) x10^3/uL Immature Gran # (Auto) (0.001-0.031) x10^3u/L Absolute Lymphs (auto) (1.32-3.57) x10^3/uL Absolute Monos (auto) (0.30-0.82) x10^3/uL Absolute Nucleated RBC (0.00-0.012) x10^3u/L Lymphocytes % (21.8-53.1) % Monocytes % (5.3-12.2) % Eosinophils % (0.8-7.0) % Basophils % (0.2-1.2) % Absolute Granulocytes (1.78-5.38) x10^3/uL Basophils # (0.01-0.08) x10^3/uL pO2/FiO2 Ratio % VBG pH (7.32-7.42) VBG pCO2 at Pat Temp (42-55) mm/Hg VBG pO2 at Pat Temp (25-40) mm/Hg VBG HCO3 (22-28) meq/L VBG O2 Sat (Miriam) (95-100) VBG Base Excess (-2.0-2.0) VBG Hemoglobin VBG Carboxyhemoglobin (0.0-6.9) % T HGB POC Potassium (3.5-5.1) Sodium (135-145) mmol/L Potassium (3.5-5.1) mmol/L Chloride (98-107) mmol/L Carbon Dioxide (22-30) mmol/L Anion Gap (5-15) MEQ/L BUN (9-20) mg/dL Creatinine (0.66-1.25) mg/dL Estimated GFR ML/MIN Glucose (74-106) mg/dL POC Glucometer 406 H 443 H (74 to 106) mg/dL Lactic Acid (0.4-2.0) Calcium (8.4-10.2) mg/dL Magnesium (1.6-2.3) mg/dL Total Bilirubin (0.2-1.3) mg/dL AST (17-59) U/L ALT (0-50) U/L Alkaline Phosphatase (38-126) U/L Troponin I (0.000-0.033) ng/mL NT-Pro-B Natriuret Pep (<300) pg/mL Serum Total Protein (6.3-8.2) g/dL Albumin (3.5-5.0) g/dL Lipase (23-300) U/L Urine Color Yellow (Yellow) Urine Appearance Clear (Clear) Urine pH 5.0 (4.6-8.0) Ur Specific [place] 1.025 (1.005-1.030) Urine Protein 300 A (Negative) Urine Glucose (UA) >=1000 A (Negative) mg/dL Urine Ketones Negative (Negative) Urine Blood Small A (Negative) Urine Nitrite Negative (Negative) Urine Bilirubin Negative (Negative) Urine Urobilinogen 0.2 (0.2) mg/dL Ur Leukocyte Esterase Negative (Negative) U Hyaline Cast (Auto) 3-5 A (0-2) /LPF Urine Microscopic RBC 0-2 (0-5) /HPF Urine Microscopic WBC 0-2 (0-5) /HPF Ur Epithelial Cells None Seen (None Seen) /HPF Urine Bacteria None Seen (None Seen) /HPF Urine Culture Reflexed NO (NO) Accuchecks Date 05/31/24 Date 05/31/24 Time 21:30 - Radiology Impressions Radiology Exams & Impressions: Radiology Procedures Category Date Time Status CHEST 1 VIEW (PORTABLE) Stat Exams 05/31/24 18:50 Completed Assessment/Plan (1) Acute exacerbation of CHF (congestive heart failure) Current Visit: Yes Status: Acute Qualifiers: Assessment & Plan: Secondary to dietary indiscretion with sodium 1. Admit to hospital 2. IV diuretics 3. Limit sodium intake 4. Follow daily weights, I/Os Code(s): I50.9 - HEART FAILURE, UNSPECIFIED (2) Type 2 diabetes mellitus with diabetic chronic kidney disease Current Visit: Yes Status: Acute Qualifiers: Chronic kidney disease stage: stage 3 (moderate) Chronic kidney disease stage 3 subtype: stage 3b (GFR 30-44) Assessment & Plan: Sugars under poor control 1. ADA diet 2. FSBS qAC/HS with SSI 3. Check UPC 4. Monitor blood sugars Code(s): E11.22 - TYPE 2 DIABETES MELLITUS W DIABETIC CHRONIC KIDNEY DISEASE (3) Acute on chronic renal failure Current Visit: No Status: Acute Assessment & Plan: Secondary to cardiorenal syndrome 1. Check urine lytes 2. Follow I/Os 3. Watch electrolytes, creatinine closely Code(s): N17.9 - ACUTE KIDNEY FAILURE, UNSPECIFIED; N18.9 - CHRONIC KIDNEY DISEASE, UNSPECIFIED (4) Hyperkalemia Current Visit: No Status: Acute Assessment & Plan: Secondary to dietary indiscretion 1. Low K diet 2. Defer K [place] 3. Hold KERMIT/ARB Code(s): E87.5 - HYPERKALEMIA (5) Hyponatremia Current Visit: No Status: Acute Assessment & Plan: Hypervolemic hyponatremia 1. Limit free water 2. Continue diuretics 3. Monitor sodium level Code(s): E87.1 - HYPO-OSMOLALITY AND HYPONATREMIA Telemedicine Encounter - Telemedicine Encounter Telemedicine Encounter: "The entirety of this encounter was performed via Telemedicine" This visit was performed using real-time audio and video connection between my location and thepatients locationwith the assistance of a surrogateat the patients location. Written or verbal consent was obtained from the patient /guardian to perform this visit [facility]. Any patient questions regarding the telemedicine interaction were answered.
[2024-06-01] MEDS ORDERED: TYLENOL 325 MG PO PRN
[2024-06-01] MEDS ORDERED: NON-FORMULARY ITEM (Omeprazole [Omeprazole] 40 MG Capsule.Dr) PO PRN (00:01)
[2024-06-01] MEDS ORDERED: Cymbalta 30 MG Capsule ONE (00:13)
[2024-06-01] MEDS ORDERED: REQUIP 2MG TAB ONE (00:14)
[2024-06-01] MEDS: DESYREL 50 MG PO PRN ×2 (00:15→21:19)
[2024-06-01] MEDS: REQUIP 2MG TAB PO SCH (00:16)
[2024-06-01] MEDS: ELIQUIS 2.5 MG TABLET PO SCH (00:16)
[2024-06-01] MEDS: Neurontin PO SCH (00:16)
[2024-06-01] MEDS: COREG 12.5 MG PO SCH (00:16)
[2024-06-01] MEDS: NON-FORMULARY ITEM (Duloxetine Hcl [Cymbalta] 60 MG Capsule.Dr) PO SCH (00:17)
[2024-06-01] MEDS: Lasix 40 MG/4 ML IV SCH ×2 (00:18→11:16)
[2024-06-01] MEDS: DUONEB 0.5-3 MG/3 ml Neb IH SCH (01:21)
[2024-06-01 03:21] LABS: Hematocrit 27.2 % (40.1-51.0); Hemoglobin 9.2 g/dL (13.7-17.5); Mean Cell Volume 83.7 fL (79.0-92.2); Mean Corpuscular Hemoglobin 28.3 pg (25.7-32.2); Mean Corpuscular Hgb Concent. 33.8 g/dL (32.3-36.5); Platelet Count 176 x10^3/uL (163-337); Red Blood Count 3.25 x10^6/uL (4.63-6.08); Red Cell Distribution Width 15.1 % (11.6-14.4); White Blood Count 5.2 x10^3/uL (4.23-9.07)
[2024-06-01 03:33] LABS: ALBUMIN 3.5 g/dL (3.5-5.0); ANION GAP 13.2 MEQ/L (5-15); BILIRUBIN,TOTAL 0.6 mg/dL (0.2-1.3); Creatinine 1 1.15 mg/dL (0.66-1.25); EST GLOMERULAR FILTRATION RATE 70.6 ML/MIN; Potassium 4.8 mmol/L (3.5-5.1); Total Protein 6.3 g/dL (6.3-8.2)
[2024-06-01] MEDS ORDERED: ENOXAPARIN SODIUM SQ SCH (10:00)
[2024-06-01] MEDS: Lantus Insulin SQ SCH (11:15)
[2024-06-01] MEDS: Cymbalta 30 MG Capsule PO SCH (11:15)
[2024-06-01] MEDS: Protonix 40MG Tablet PO SCH (11:16)
[2024-06-01] MEDS: JARDIANCE PO SCH (11:16)
--- NOTE | 2024-06-01 13:05 | PCM.NOTE ---
Date and Time: 06/01/24 1300 Subjective Assessment: is a 63 year old male with a past medical history significant for hypertension, diabetes, hyperlipidemia and CHF who presented to the hospital on 05/31/24 with complaints of increasing shortness of breath. He was felt to be in fluid over and treated with IV lasix, leading to improvement in symptoms. No fever/chills. No chest pain or palpitations. No nausea, vomiting or diarrhea. He does admit to eating canned vegetables but other denies adding salt to his foods. Hyponatremia and Hyperkalemia resolved. Continue lasix 40 Q12 for CHF exacerbation. Hyperglycemia now under control. Pt will likely d/c tomorrow. He will need close f/u with PCP, Nephrology, and cardiology to prevent readmission. Pt has had repeat admissions for this dx. He denies any concerns today. - Review of Systems Constitutional: No Fever, No Chills Eyes: No Symptoms Ears, Nose, & Throat: No Symptoms Respiratory: No Cough, No Short Of Breath Cardiac: No Chest Pain, No Edema, No Syncope Abdominal/Gastrointestinal: No Abdominal Pain, No Nausea, No Vomiting, No Diarrhea Genitourinary Symptoms: No Dysuria Musculoskeletal: No Back Pain, No Neck Pain Skin: No Rash Neurological: No Dizziness, No Focal Weakness, No Sensory Changes Psychological: No Symptoms Endocrine: No Symptoms Hematologic/Lymphatic: No Symptoms Immunological/Allergic: No Symptoms Objective Exam General Appearance: no apparent distress, alert Neurologic Exam: alert, oriented x 3, cooperative, normal mood/affect, nml ce rebellar function, sensation nml, No motor deficits Skin Exam: normal color, warm, dry Eye Exam: PERRL, EOMI, eyes nml inspection Ears, Nose, Throat Exam: normal ENT inspection, pharynx normal, moist mucous membranes Neck Exam: normal inspection, non-tender, supple, full range of motion Respiratory Exam: normal breath sounds, lungs clear, No respiratory distress Cardiovascular Exam: regular rate/rhythm, normal heart sounds Gastrointestinal/Abdomen Exam: soft, No tenderness, No mass Extremity Exam: normal inspection, normal range of motion Back Exam: normal inspection, normal range of motion, No CVA tenderness, No vertebral tenderness Male Genitalia Exam: deferred Rectal Exam: deferred Objective Data Vital Signs: Vital Signs - 24 hr Temp Pulse Resp BP BP Pulse Ox 06/01/24 12:00 97.7 F 76 16 98/57 98 06/01/24 07:15 97.6 F 82 16 108/71 99 06/01/24 04:00 97.1 F 81 18 105/58 97 06/01/24 00:00 98.0 F 80 18 157/93 98 05/31/24 22:06 97.8 F 81 18 136/80 99 05/31/24 21:43 80 16 141/83 100 05/31/24 21:37 100 05/31/24 21:00 75 23 160/94 100 05/31/24 20:31 75 19 160/94 100 05/31/24 20:01 76 18 158/101 05/31/24 19:31 76 19 154/89 05/31/24 19:18 76 20 100 05/31/24 19:01 82 28 H 150/119 100 05/31/24 18:47 161/102 05/31/24 18:44 97.4 F 75 19 161/102 100 Pain Assessment - Last Documented Pain Intensity 0 Intake and Output: Intake & Output 05/30/24 05/31/24 06/01/24 06/02/24 11:59 11:59 11:59 11:59 Intake Total 800 Output Total 1850 550 Balance -1050 -550 Weight 83 kg Lab Results: Lab Results-Last 24 Hours 05/31/24 05/31/24 05/31/24 Range/Units 19:08 19:08 19:15 WBC 5.4 (4.23-9.07) x10^3/uL RBC 3.57 L (4.63-6.08) x10^6/uL Hgb 10.2 L (13.7-17.5) g/dL Hct 30.7 L (40.1-51.0) % MCV 86.0 (79.0-92.2) fL MCH 28.6 (25.7-32.2) pg MCHC 33.2 (32.3-36.5) g/dL RDW 15.2 H (11.6-14.4) % Plt Count 197 (163-337) x10^3/uL MPV 10.6 (9.4-12.4) fL Gran % 71.3 H (34.0-67.9) % Immature Gran % (Auto) 0.4 (0.001-0.429) % Nucleat RBC Rel Count 0.0 (0.00-0.2) % Eos # (Auto) 0.06 (0.04-0.54) x10^3/uL Immature Gran # (Auto) 0.02 (0.001-0.031) x10^3u/L Absolute Lymphs (auto) 1.10 L (1.32-3.57) x10^3/uL Absolute Monos (auto) 0.32 (0.30-0.82) x10^3/uL Absolute Nucleated RBC 0.00 (0.00-0.012) x10^3u/L Lymphocytes % 20.5 L (21.8-53.1) % Monocytes % 6.0 (5.3-12.2) % Eosinophils % 1.1 (0.8-7.0) % Basophils % 0.7 (0.2-1.2) % Absolute Granulocytes 3.83 (1.78-5.38) x10^3/uL Basophils # 0.04 (0.01-0.08) x10^3/uL pO2/FiO2 Ratio 21.0 % VBG pH 7.39 (7.32-7.42) VBG pCO2 at Pat Temp 47 (42-55) mm/Hg VBG pO2 at Pat Temp 35 (25-40) mm/Hg VBG HCO3 28.5 H (22-28) meq/L VBG O2 Sat (Miriam) 62.1 L (95-100) VBG Base Excess 2.9 H (-2.0-2.0) VBG Hemoglobin 10.8 VBG Carboxyhemoglobin 3.6 (0.0-6.9) % T HGB POC Potassium 6.0 H* (3.5-5.1) Sodium (135-145) mmol/L Potassium (3.5-5.1) mmol/L Chloride (98-107) mmol/L Carbon Dioxide (22-30) mmol/L Anion Gap (5-15) MEQ/L BUN (9-20) mg/dL Creatinine (0.66-1.25) mg/dL Estimated GFR ML/MIN Glucose (74-106) mg/dL POC Glucometer (74 to 106) mg/dL Lactic Acid 1.6 (0.4-2.0) Calcium (8.4-10.2) mg/dL Magnesium (1.6-2.3) mg/dL Total Bilirubin (0.2-1.3) mg/dL AST (17-59) U/L ALT (0-50) U/L Alkaline Phosphatase (38-126) U/L Troponin I (0.000-0.033) ng/mL NT-Pro-B Natriuret Pep (<300) pg/mL Serum Total Protein (6.3-8.2) g/dL Albumin (3.5-5.0) g/dL Lipase (23-300) U/L Urine Color (Yellow) Urine Appearance (Clear) Urine pH (4.6-8.0) Ur Specific [place] (1.005-1.030) Urine Protein (Negative) Urine Glucose (UA) (Negative) mg/dL Urine Ketones (Negative) Urine Blood (Negative) Urine Nitrite (Negative) Urine Bilirubin (Negative) Urine Urobilinogen (0.2) mg/dL Ur Leukocyte Esterase (Negative) U Hyaline Cast (Auto) (0-2) /LPF Urine Microscopic RBC (0-5) /HPF Urine Microscopic WBC (0-5) /HPF Ur Epithelial Cells (None Seen) /HPF Urine Bacteria (None Seen) /HPF Urine Culture Reflexed (NO) 05/31/24 05/31/24 05/31/24 Range/Units 19:15 19:15 19:15 WBC (4.23-9.07) x10^3/uL RBC (4.63-6.08) x10^6/uL Hgb (13.7-17.5) g/dL Hct (40.1-51.0) % MCV (79.0-92.2) fL MCH (25.7-32.2) pg MCHC (32.3-36.5) g/dL RDW (11.6-14.4) % Plt Count (163-337) x10^3/uL MPV (9.4-12.4) fL Gran % (34.0-67.9) % Immature Gran % (Auto) (0.001-0.429) % Nucleat RBC Rel Count (0.00-0.2) % Eos # (Auto) (0.04-0.54) x10^3/uL Immature Gran # (Auto) (0.001-0.031) x10^3u/L Absolute Lymphs (auto) (1.32-3.57) x10^3/uL Absolute Monos (auto) (0.30-0.82) x10^3/uL Absolute Nucleated RBC (0.00-0.012) x10^3u/L Lymphocytes % (21.8-53.1) % Monocytes % (5.3-12.2) % Eosinophils % (0.8-7.0) % Basophils % (0.2-1.2) % Absolute Granulocytes (1.78-5.38) x10^3/uL Basophils # (0.01-0.08) x10^3/uL pO2/FiO2 Ratio % VBG pH (7.32-7.42) VBG pCO2 at Pat Temp (42-55) mm/Hg VBG pO2 at Pat Temp (25-40) mm/Hg VBG HCO3 (22-28) meq/L VBG O2 Sat (Miriam) (95-100) VBG Base Excess (-2.0-2.0) VBG Hemoglobin VBG Carboxyhemoglobin (0.0-6.9) % T HGB POC Potassium (3.5-5.1) Sodium 127 L (135-145) mmol/L Potassium 5.7 H (3.5-5.1) mmol/L Chloride 94 L (98-107) mmol/L Carbon Dioxide 21 L (22-30) mmol/L Anion Gap 18.0 H (5-15) MEQ/L BUN 37 H (9-20) mg/dL Creatinine 1.24 (0.66-1.25) mg/dL Estimated GFR 64.5 ML/MIN Glucose 643 H* (74-106) mg/dL POC Glucometer (74 to 106) mg/dL Lactic Acid (0.4-2.0) Calcium 8.9 (8.4-10.2) mg/dL Magnesium 1.6 (1.6-2.3) mg/dL Total Bilirubin 0.80 (0.2-1.3) mg/dL AST 30 (17-59) U/L ALT 38 (0-50) U/L Alkaline Phosphatase 189 H (38-126) U/L Troponin I 0.119 H* (0.000-0.033) ng/mL NT-Pro-B Natriuret Pep 25205 (<300) pg/mL Serum Total Protein 7.0 (6.3-8.2) g/dL Albumin 4.0 (3.5-5.0) g/dL Lipase 19 L (23-300) U/L Urine Color (Yellow) Urine Appearance (Clear) Urine pH (4.6-8.0) Ur Specific [place] (1.005-1.030) Urine Protein (Negative) Urine Glucose (UA) (Negative) mg/dL Urine Ketones (Negative) Urine Blood (Negative) Urine Nitrite (Negative) Urine Bilirubin (Negative) Urine Urobilinogen (0.2) mg/dL Ur Leukocyte Esterase (Negative) U Hyaline Cast (Auto) (0-2) /LPF Urine Microscopic RBC (0-5) /HPF Urine Microscopic WBC (0-5) /HPF Ur Epithelial Cells (None Seen) /HPF Urine Bacteria (None Seen) /HPF Urine Culture Reflexed (NO) 05/31/24 05/31/24 05/31/24 Range/Units 19:44 21:32 22:35 WBC (4.23-9.07) x10^3/uL RBC (4.63-6.08) x10^6/uL Hgb (13.7-17.5) g/dL Hct (40.1-51.0) % MCV (79.0-92.2) fL MCH (25.7-32.2) pg MCHC (32.3-36.5) g/dL RDW (11.6-14.4) % Plt Count (163-337) x10^3/uL MPV (9.4-12.4) fL Gran % (34.0-67.9) % Immature Gran % (Auto) (0.001-0.429) % Nucleat RBC Rel Count (0.00-0.2) % Eos # (Auto) (0.04-0.54) x10^3/uL Immature Gran # (Auto) (0.001-0.031) x10^3u/L Absolute Lymphs (auto) (1.32-3.57) x10^3/uL Absolute Monos (auto) (0.30-0.82) x10^3/uL Absolute Nucleated RBC (0.00-0.012) x10^3u/L Lymphocytes % (21.8-53.1) % Monocytes % (5.3-12.2) % Eosinophils % (0.8-7.0) % Basophils % (0.2-1.2) % Absolute Granulocytes (1.78-5.38) x10^3/uL Basophils # (0.01-0.08) x10^3/uL pO2/FiO2 Ratio % VBG pH (7.32-7.42) VBG pCO2 at Pat Temp (42-55) mm/Hg VBG pO2 at Pat Temp (25-40) mm/Hg VBG HCO3 (22-28) meq/L VBG O2 Sat (Miriam) (95-100) VBG Base Excess (-2.0-2.0) VBG Hemoglobin VBG Carboxyhemoglobin (0.0-6.9) % T HGB POC Potassium (3.5-5.1) Sodium (135-145) mmol/L Potassium (3.5-5.1) mmol/L Chloride (98-107) mmol/L Carbon Dioxide (22-30) mmol/L Anion Gap (5-15) MEQ/L BUN (9-20) mg/dL Creatinine (0.66-1.25) mg/dL Estimated GFR ML/MIN Glucose (74-106) mg/dL POC Glucometer 406 H 443 H (74 to 106) mg/dL Lactic Acid (0.4-2.0) Calcium (8.4-10.2) mg/dL Magnesium (1.6-2.3) mg/dL Total Bilirubin (0.2-1.3) mg/dL AST (17-59) U/L ALT (0-50) U/L Alkaline Phosphatase (38-126) U/L Troponin I (0.000-0.033) ng/mL NT-Pro-B Natriuret Pep (<300) pg/mL Serum Total Protein (6.3-8.2) g/dL Albumin (3.5-5.0) g/dL Lipase (23-300) U/L Urine Color Yellow (Yellow) Urine Appearance Clear (Clear) Urine pH 5.0 (4.6-8.0) Ur Specific [place] 1.025 (1.005-1.030) Urine Protein 300 A (Negative) Urine Glucose (UA) >=1000 A (Negative) mg/dL Urine Ketones Negative (Negative) Urine Blood Small A (Negative) Urine Nitrite Negative (Negative) Urine Bilirubin Negative (Negative) Urine Urobilinogen 0.2 (0.2) mg/dL Ur Leukocyte Esterase Negative (Negative) U Hyaline Cast (Auto) 3-5 A (0-2) /LPF Urine Microscopic RBC 0-2 (0-5) /HPF Urine Microscopic WBC 0-2 (0-5) /HPF Ur Epithelial Cells None Seen (None Seen) /HPF Urine Bacteria None Seen (None Seen) /HPF Urine Culture Reflexed NO (NO) 05/31/24 06/01/24 06/01/24 Range/Units 23:40 03:20 03:20 WBC 5.2 (4.23-9.07) x10^3/uL RBC 3.25 L (4.63-6.08) x10^6/uL Hgb 9.2 L (13.7-17.5) g/dL Hct 27.2 L (40.1-51.0) % MCV 83.7 (79.0-92.2) fL MCH 28.3 (25.7-32.2) pg MCHC 33.8 (32.3-36.5) g/dL RDW 15.1 H (11.6-14.4) % Plt Count 176 (163-337) x10^3/uL MPV 10.0 (9.4-12.4) fL Gran % (34.0-67.9) % Immature Gran % (Auto) (0.001-0.429) % Nucleat RBC Rel Count (0.00-0.2) % Eos # (Auto) (0.04-0.54) x10^3/uL Immature Gran # (Auto) (0.001-0.031) x10^3u/L Absolute Lymphs (auto) (1.32-3.57) x10^3/uL Absolute Monos (auto) (0.30-0.82) x10^3/uL Absolute Nucleated RBC (0.00-0.012) x10^3u/L Lymphocytes % (21.8-53.1) % Monocytes % (5.3-12.2) % Eosinophils % (0.8-7.0) % Basophils % (0.2-1.2) % Absolute Granulocytes (1.78-5.38) x10^3/uL Basophils # (0.01-0.08) x10^3/uL pO2/FiO2 Ratio % VBG pH (7.32-7.42) VBG pCO2 at Pat Temp (42-55) mm/Hg VBG pO2 at Pat Temp (25-40) mm/Hg VBG HCO3 (22-28) meq/L VBG O2 Sat (Miriam) (95-100) VBG Base Excess (-2.0-2.0) VBG Hemoglobin VBG Carboxyhemoglobin (0.0-6.9) % T HGB POC Potassium (3.5-5.1) Sodium (135-145) mmol/L Potassium (3.5-5.1) mmol/L Chloride (98-107) mmol/L Carbon Dioxide (22-30) mmol/L Anion Gap (5-15) MEQ/L BUN (9-20) mg/dL Creatinine (0.66-1.25) mg/dL Estimated GFR ML/MIN Glucose (74-106) mg/dL POC Glucometer (74 to 106) mg/dL Lactic Acid (0.4-2.0) Calcium (8.4-10.2) mg/dL Magnesium (1.6-2.3) mg/dL Total Bilirubin (0.2-1.3) mg/dL AST (17-59) U/L ALT (0-50) U/L Alkaline Phosphatase (38-126) U/L Troponin I 0.113 H* 0.114 H* (0.000-0.033) ng/mL NT-Pro-B Natriuret Pep (<300) pg/mL Serum Total Protein (6.3-8.2) g/dL Albumin (3.5-5.0) g/dL Lipase (23-300) U/L Urine Color (Yellow) Urine Appearance (Clear) Urine pH (4.6-8.0) Ur Specific [place] (1.005-1.030) Urine Protein (Negative) Urine Glucose (UA) (Negative) mg/dL Urine Ketones (Negative) Urine Blood (Negative) Urine Nitrite (Negative) Urine Bilirubin (Negative) Urine Urobilinogen (0.2) mg/dL Ur Leukocyte Esterase (Negative) U Hyaline Cast (Auto) (0-2) /LPF Urine Microscopic RBC (0-5) /HPF Urine Microscopic WBC (0-5) /HPF Ur Epithelial Cells (None Seen) /HPF Urine Bacteria (None Seen) /HPF Urine Culture Reflexed (NO) 06/01/24 06/01/24 06/01/24 Range/Units 03:20 07:29 12:13 WBC (4.23-9.07) x10^3/uL RBC (4.63-6.08) x10^6/uL Hgb (13.7-17.5) g/dL Hct (40.1-51.0) % MCV (79.0-92.2) fL MCH (25.7-32.2) pg MCHC (32.3-36.5) g/dL RDW (11.6-14.4) % Plt Count (163-337) x10^3/uL MPV (9.4-12.4) fL Gran % (34.0-67.9) % Immature Gran % (Auto) (0.001-0.429) % Nucleat RBC Rel Count (0.00-0.2) % Eos # (Auto) (0.04-0.54) x10^3/uL Immature Gran # (Auto) (0.001-0.031) x10^3u/L Absolute Lymphs (auto) (1.32-3.57) x10^3/uL Absolute Monos (auto) (0.30-0.82) x10^3/uL Absolute Nucleated RBC (0.00-0.012) x10^3u/L Lymphocytes % (21.8-53.1) % Monocytes % (5.3-12.2) % Eosinophils % (0.8-7.0) % Basophils % (0.2-1.2) % Absolute Granulocytes (1.78-5.38) x10^3/uL Basophils # (0.01-0.08) x10^3/uL pO2/FiO2 Ratio % VBG pH (7.32-7.42) VBG pCO2 at Pat Temp (42-55) mm/Hg VBG pO2 at Pat Temp (25-40) mm/Hg VBG HCO3 (22-28) meq/L VBG O2 Sat (Miriam) (95-100) VBG Base Excess (-2.0-2.0) VBG Hemoglobin VBG Carboxyhemoglobin (0.0-6.9) % T HGB POC Potassium (3.5-5.1) Sodium 131 L (135-145) mmol/L Potassium 4.8 (3.5-5.1) mmol/L Chloride 97 L (98-107) mmol/L Carbon Dioxide 26 (22-30) mmol/L Anion Gap 13.2 (5-15) MEQ/L BUN 41 H (9-20) mg/dL Creatinine 1.15 (0.66-1.25) mg/dL Estimated GFR 70.6 ML/MIN Glucose 161 H (74-106) mg/dL POC Glucometer 261 H 429 H (74 to 106) mg/dL Lactic Acid (0.4-2.0) Calcium 9.0 (8.4-10.2) mg/dL Magnesium (1.6-2.3) mg/dL Total Bilirubin 0.60 (0.2-1.3) mg/dL AST 28 (17-59) U/L ALT 33 (0-50) U/L Alkaline Phosphatase 132 H (38-126) U/L Troponin I (0.000-0.033) ng/mL NT-Pro-B Natriuret Pep (<300) pg/mL Serum Total Protein 6.3 (6.3-8.2) g/dL Albumin 3.5 (3.5-5.0) g/dL Lipase (23-300) U/L Urine Color (Yellow) Urine Appearance (Clear) Urine pH (4.6-8.0) Ur Specific [place] (1.005-1.030) Urine Protein (Negative) Urine Glucose (UA) (Negative) mg/dL Urine Ketones (Negative) Urine Blood (Negative) Urine Nitrite (Negative) Urine Bilirubin (Negative) Urine Urobilinogen (0.2) mg/dL Ur Leukocyte Esterase (Negative) U Hyaline Cast (Auto) (0-2) /LPF Urine Microscopic RBC (0-5) /HPF Urine Microscopic WBC (0-5) /HPF Ur Epithelial Cells (None Seen) /HPF Urine Bacteria (None Seen) /HPF Urine Culture Reflexed (NO) Radiology Exams: Radiology Procedures Category Date Time Status CHEST 1 VIEW (PORTABLE) Stat Exams 05/31/24 18:50 Completed Multi-Disciplinary Progress Notes: Multi-Disciplinary Progress Notes 06/01/24 12:26 Case Management Note by Shirley Rossi [facility] HAS ACCEPTED PATIENT S/W ACO- THEY HAVE OFFERED CCM SEVERAL TIMES TO PATIENT BUT HE ALWAYS REFUSES. THEY ALREADY CONTACT HOME FOR TCM- THEY WILL TRY TO GET PATIENT TO SIGN UP FOR CCM AGAIN THIS STAY Initialized on 06/01/24 12:26 - END OF NOTE 06/01/24 10:33 Case Management Note by Shirley Rossi NEW REFERRAL FAXED TO [facility]. THEY WILL NEED NOTIFIED AT TIME OF DC AT [phone]. THEY WILL NEED FAXED THE DC INSTRUCTIONS, DC MED LIST AND DC SUMMARY TO [phone] Initialized on 06/01/24 10:33 - END OF NOTE Assessment/Plan (1) Acute exacerbation of CHF (congestive heart failure) Current Visit: Yes Status: Acute Qualifiers: Assessment & Plan: Secondary to dietary indiscretion with sodium 1. Admit to hospital 2. IV diuretics 3. Limit sodium intake 4. Follow daily weights, I/Os Code(s): I50.9 - HEART FAILURE, UNSPECIFIED (2) Type 2 diabetes mellitus with diabetic chronic kidney disease Current Visit: Yes Status: Acute Qualifiers: Chronic kidney disease stage: stage 3 (moderate) Chronic kidney disease stage 3 subtype: stage 3b (GFR 30-44) Assessment & Plan: Sugars under poor control 1. ADA diet 2. FSBS qAC/HS with SSI 3. Check UPC 4. Monitor blood sugars 5. A1C 10.40- 05/09/24- uncontrolled Code(s): E11.22 - TYPE 2 DIABETES MELLITUS W DIABETIC CHRONIC KIDNEY DISEASE (3) Acute kidney injury superimposed on CKD Current Visit: No Status: Acute Assessment & Plan: Secondary to cardiorenal syndrome 1. Check urine lytes 2. Follow I/Os 3. Watch electrolytes, creatinine closely - at baseline renal function Code(s): N17.9 - ACUTE KIDNEY FAILURE, UNSPECIFIED; N18.9 - CHRONIC KIDNEY DISEASE, UNSPECIFIED (4) Hyperkalemia Current Visit: No Status: Resolved Assessment & Plan: Secondary to dietary indiscretion 1. Low K diet 2. Defer K [place] 3. Hold KERMIT/ARB - resolved Code(s): E87.5 - HYPERKALEMIA (5) Hyponatremia Current Visit: No Status: Resolved Assessment & Plan: Hypervolemic hyponatremia 1. Limit free water 2. Continue diuretics 3. Monitor sodium level - resolved VTE: Lovenox PPI: pantoprazole Next of KIN: Heath Danielle [phone] D/C plan: tomorrow Code status: Full Code(s): E87.1 - HYPO-OSMOLALITY AND HYPONATREMIA
[2024-06-01] MEDS: LIPITOR 40MG PO SCH (21:15)
[2024-06-02 05:03] LABS: Hematocrit 29.7 % (40.1-51.0); Hemoglobin 9.9 g/dL (13.7-17.5); Mean Cell Volume 84.9 fL (79.0-92.2); Mean Corpuscular Hemoglobin 28.3 pg (25.7-32.2); Mean Corpuscular Hgb Concent. 33.3 g/dL (32.3-36.5); Mean Platelet Volume 10.6 fL (9.4-12.4); Platelet Count 202 x10^3/uL (163-337); Red Cell Distribution Width 15.5 % (11.6-14.4); White Blood Count 4.7 x10^3/uL (4.23-9.07)
[2024-06-02 05:26] LABS: ALBUMIN 3.3 g/dL (3.5-5.0); ANION GAP 15.1 MEQ/L (5-15); BILIRUBIN,TOTAL 0.6 mg/dL (0.2-1.3); Calcium 8.6 mg/dL (8.4-10.2); Creatinine 1 1.3 mg/dL (0.66-1.25); Potassium 4.6 mmol/L (3.5-5.1); Total Protein 6.2 g/dL (6.3-8.2)
[2024-06-02] MEDS: Lasix 40 MG PO SCH (09:44)
--- NOTE | 2024-06-02 12:05 | PCM.NOTE ---
Date and Time: 06/02/24 1200 Subjective Assessment: 06/01/24 is a 63 year old male with a past medical history significant for hypertension, diabetes, hyperlipidemia and CHF who presented to the hospital on 05/31/24 with complaints of increasing shortness of breath. He was felt to be in fluid over and treated with IV lasix, leading to improvement in symptoms. No fever/chills. No chest pain or palpitations. No nausea, vomiting or diarrhea. He does admit to eating canned vegetables but other denies adding salt to his foods. Hyponatremia and Hyperkalemia resolved. Continue lasix 40 Q12 for CHF exacerbation. Hyperglycemia now under control. Pt will likely d/c tomorrow. He will need close f/u with PCP, Nephrology, and cardiology to prevent readmission. Pt has had repeat admissions for this dx. He denies any concerns today. 06/02/24 Pt sitting in bed. He states this morning he felt dizzy after using the bathroom and fell to the floor on his hands and knees. he reports no injuries. Stopped BID lasix and resumed PO lasix daily. Creat up at 1.30. encouraged pt to drink fluids as he may be a bit dehydrated from IV lasix. Dizziness improved this afternoon. will keep pt another night and make sure he is safe to d/c tomorrow. He denies CP, SOB, abd. pain, N/V/D. - Review of Systems Constitutional: No Fever, No Chills Eyes: No Symptoms Ears, Nose, & Throat: No Symptoms Respiratory: No Cough, No Short Of Breath Cardiac: No Chest Pain, No Edema, No Syncope Abdominal/Gastrointestinal: No Abdominal Pain, No Nausea, No Vomiting, No Diarrhea Genitourinary Symptoms: No Dysuria Musculoskeletal: No Back Pain, No Neck Pain Skin: No Rash Neurological: Dizziness, No Focal Weakness, No Sensory Changes Psychological: No Symptoms Endocrine: No Symptoms Hematologic/Lymphatic: No Symptoms Immunological/Allergic: No Symptoms Objective Exam General Appearance: no apparent distress, alert Neurologic Exam: alert, oriented x 3, cooperative, normal mood/affect, nml cerebellar function, sensation nml, No motor deficits Skin Exam: normal color, warm, dry Eye Exam: PERRL, EOMI, eyes nml inspection Ears, Nose, Throat Exam: normal ENT inspection, pharynx normal, moist mucous membranes Neck Exam: normal inspection, non-tender, supple, full range of motion Respiratory Exam: normal breath sounds, lungs clear, No respiratory distress Cardiovascular Exam: regular rate/rhythm, normal heart sounds Gastrointestinal/Abdomen Exam: soft, No tenderness, No mass Extremity Exam: normal inspection, normal range of motion Back Exam: normal inspection, normal range of motion, No CVA tenderness, No vertebral tenderness Male Genitalia Exam: deferred Rectal Exam: deferred Objective Data Vital Signs: Vital Signs - 24 hr Temp Pulse Resp BP BP Pulse Ox 06/02/24 09:42 89 108/63 06/02/24 07:42 97.5 F 78 17 95/61 96 06/02/24 07:40 97.8 F 80 14 114/70 95/61 97 06/02/24 04:00 97.1 F 84 16 97/63 98 06/01/24 23:49 97.5 F 79 16 87/55 94 L 06/01/24 19:12 97.1 F 80 16 135/96 99 06/01/24 16:00 97.6 F 78 16 112/72 97 Pain Assessment - Last Documented Pain Intensity 0 Intake and Output: Intake & Output 05/31/24 06/01/24 06/02/24 06/03/24 11:59 11:59 11:59 11:59 Intake Total 800 720 Output Total 1850 2250 Balance -1050 -1530 Weight 83 kg 79.3 kg Lab Results: Lab Results-Last 24 Hours 06/01/24 06/01/24 06/01/24 Range/Units 12:13 16:26 21:28 WBC (4.23-9.07) x10^3/uL RBC (4.63-6.08) x10^6/uL Hgb (13.7-17.5) g/dL Hct (40.1-51.0) % MCV (79.0-92.2) fL MCH (25.7-32.2) pg MCHC (32.3-36.5) g/dL RDW (11.6-14.4) % Plt Count (163-337) x10^3/uL MPV (9.4-12.4) fL Sodium (135-145) mmol/L Potassium (3.5-5.1) mmol/L Chloride (98-107) mmol/L Carbon Dioxide (22-30) mmol/L Anion Gap (5-15) MEQ/L BUN (9-20) mg/dL Creatinine (0.66-1.25) mg/dL Estimated GFR ML/MIN Glucose (74-106) mg/dL POC Glucometer 429 H 156 H 218 H (74 to 106) mg/dL Calcium (8.4-10.2) mg/dL Total Bilirubin (0.2-1.3) mg/dL AST (17-59) U/L ALT (0-50) U/L Alkaline Phosphatase (38-126) U/L Serum Total Protein (6.3-8.2) g/dL Albumin (3.5-5.0) g/dL 06/02/24 06/02/24 06/02/24 Range/Units 04:58 04:58 07:26 WBC 4.7 (4.23-9.07) x10^3/uL RBC 3.50 L (4.63-6.08) x10^6/uL Hgb 9.9 L (13.7-17.5) g/dL Hct 29.7 L (40.1-51.0) % MCV 84.9 (79.0-92.2) fL MCH 28.3 (25.7-32.2) pg MCHC 33.3 (32.3-36.5) g/dL RDW 15.5 H (11.6-14.4) % Plt Count 202 (163-337) x10^3/uL MPV 10.6 (9.4-12.4) fL Sodium 136 (135-145) mmol/L Potassium 4.6 (3.5-5.1) mmol/L Chloride 101 (98-107) mmol/L Carbon Dioxide 25 (22-30) mmol/L Anion Gap 15.1 H (5-15) MEQ/L BUN 39 H (9-20) mg/dL Creatinine 1.30 H (0.66-1.25) mg/dL Estimated GFR 61.0 ML/MIN Glucose 133 H (74-106) mg/dL POC Glucometer 136 H (74 to 106) mg/dL Calcium 8.6 (8.4-10.2) mg/dL Total Bilirubin 0.60 (0.2-1.3) mg/dL AST 27 (17-59) U/L ALT 30 (0-50) U/L Alkaline Phosphatase 111 (38-126) U/L Serum Total Protein 6.2 L (6.3-8.2) g/dL Albumin 3.3 L (3.5-5.0) g/dL 06/02/24 Range/Units 11:29 WBC (4.23-9.07) x10^3/uL RBC (4.63-6.08) x10^6/uL Hgb (13.7-17.5) g/dL Hct (40.1-51.0) % MCV (79.0-92.2) fL MCH (25.7-32.2) pg MCHC (32.3-36.5) g/dL RDW (11.6-14.4) % Plt Count (163-337) x10^3/uL MPV (9.4-12.4) fL Sodium (135-145) mmol/L Potassium (3.5-5.1) mmol/L Chloride (98-107) mmol/L Carbon Dioxide (22-30) mmol/L Anion Gap (5-15) MEQ/L BUN (9-20) mg/dL Creatinine (0.66-1.25) mg/dL Estimated GFR ML/MIN Glucose (74-106) mg/dL POC Glucometer 217 H (74 to 106) mg/dL Calcium (8.4-10.2) mg/dL Total Bilirubin (0.2-1.3) mg/dL AST (17-59) U/L ALT (0-50) U/L Alkaline Phosphatase (38-126) U/L Serum Total Protein (6.3-8.2) g/dL Albumin (3.5-5.0) g/dL Radiology Exams: Radiology Procedures Category Date Time Status CHEST 1 VIEW (PORTABLE) Stat Exams 05/31/24 18:50 Completed Multi-Disciplinary Progress Notes: Multi-Disciplinary Progress Notes 06/02/24 10:52 Case Management Note by Shirley Rossi S/W PATIENT- HE PLANS TO DC HOME WITH [facility]. HE DENIES ANY OTHER NEEDS. HE PLANS TO DC HOME TO HIS PLF Initialized on 06/02/24 10:52 - END OF NOTE 06/01/24 12:26 Case Management Note by Shirley Rossi [facility] HAS ACCEPTED PATIENT S/W ACO- THEY HAVE OFFERED CCM SEVERAL TIMES TO PATIENT BUT HE ALWAYS REFUSES. THEY ALREADY CONTACT HOME FOR TCM- THEY WILL TRY TO GET PATIENT TO SIGN UP FOR CCM AGAIN THIS STAY Initialized on 06/01/24 12:26 - END OF NOTE Assessment/Plan (1) Acute exacerbation of CHF (congestive heart failure) Current Visit: Yes Status: Acute Qualifiers: Code(s): I50.9 - HEART FAILURE, UNSPECIFIED (2) Type 2 diabetes mellitus with diabetic chronic kidney disease Current Visit: Yes Status: Acute Qualifiers: Chronic kidney disease stage: stage 3 (moderate) Chronic kidney disease stage 3 subtype: stage 3b (GFR 30-44) Code(s): E11.22 - TYPE 2 DIABETES MELLITUS W DIABETIC CHRONIC KIDNEY DISEASE (3) Acute kidney injury superimposed on CKD Current Visit: No Status: Acute Code(s): N17.9 - ACUTE KIDNEY FAILURE, UNSPECIFIED; N18.9 - CHRONIC KIDNEY DISEASE, UNSPECIFIED (4) Hyperkalemia Current Visit: No Status: Resolved Code(s): E87.5 - HYPERKALEMIA (5) Hyponatremia Current Visit: No Status: Resolved Assessment & Plan: (1) Acute exacerbation of CHF (congestive heart failure) Current Visit: Yes Status: Acute Qualifiers: Assessment & Plan: Secondary to dietary indiscretion with sodium 1. Admit to hospital 2. IV diuretics 3. Limit sodium intake 4. Follow daily weights, I/Os 06/02 - resume PO lasix, stop IV BID lasix Code(s): I50.9 - HEART FAILURE, UNSPECIFIED (2) Type 2 diabetes mellitus with diabetic chronic kidney disease Current Visit: Yes Status: Acute Qualifiers: Chronic kidney disease stage: stage 3 (moderate) Chronic kidney disease stage 3 subtype: stage 3b (GFR 30-44) Assessment & Plan: Sugars under poor control 1. ADA diet 2. FSBS qAC/HS with SSI 3. Check UPC 4. Monitor blood sugars 5. A1C 10.40- 05/09/24- uncontrolled Code(s): E11.22 - TYPE 2 DIABETES MELLITUS W DIABETIC CHRONIC KIDNEY DISEASE (3) Acute kidney injury superimposed on CKD Current Visit: No Status: Acute Assessment & Plan: Secondary to cardiorenal syndrome 1. Check urine lytes 2. Follow I/O's 3. Watch electrolytes, creatinine closely 10/8 - Creat 1.30, Baseline 1.24 - Stop IV lasix BID - resume home lasix PO daily Code(s): N17.9 - ACUTE KIDNEY FAILURE, UNSPECIFIED; N18.9 - CHRONIC KIDNEY DISEASE, UNSPECIFIED (4) Hyperkalemia Current Visit: No Status: Resolved Assessment & Plan: Secondary to dietary indiscretion 1. Low K diet 2. Defer K [place] 3. Hold KERMIT/ARB - resolved Code(s): E87.5 - HYPERKALEMIA (5) Hyponatremia Current Visit: No Status: Resolved Assessment & Plan: Hypervolemic hyponatremia 1. Limit free water 2. Continue diuretics 3. Monitor sodium level - resolved VTE: Lovenox PPI: pantoprazole Next of KIN: Heath Santos [phone] D/C plan: tomorrow Code status: Full Code(s): E87.1 - HYPO-OSMOLALITY AND HYPONATREMIA Code(s): E87.1 - HYPO-OSMOLALITY AND HYPONATREMIA
[2024-06-03 05:36] LABS: Hematocrit 30.1 % (40.1-51.0); Mean Cell Volume 85.8 fL (79.0-92.2); Mean Corpuscular Hemoglobin 28.5 pg (25.7-32.2); Mean Corpuscular Hgb Concent. 33.2 g/dL (32.3-36.5); Mean Platelet Volume 10.5 fL (9.4-12.4); Platelet Count 207 x10^3/uL (163-337); Red Blood Count 3.51 x10^6/uL (4.63-6.08); Red Cell Distribution Width 15.3 % (11.6-14.4); White Blood Count 5.7 x10^3/uL (4.23-9.07)
[2024-06-03 06:00] LABS: ALBUMIN 3.3 g/dL (3.5-5.0); ANION GAP 14.1 MEQ/L (5-15); BILIRUBIN,TOTAL 0.5 mg/dL (0.2-1.3); Calcium 8.5 mg/dL (8.4-10.2); Creatinine 1 1.51 mg/dL (0.66-1.25); EST GLOMERULAR FILTRATION RATE 50.9 ML/MIN; Potassium 4.3 mmol/L (3.5-5.1); Total Protein 6.2 g/dL (6.3-8.2)
--- NOTE | 2024-06-03 11:28 | PCM.NOTE ---
Date and Time: 06/03/24 1123 Subjective Assessment: 06/01/24 is a 63 year old male with a past medical history significant for hypertension, diabetes, hyperlipidemia and CHF who presented to the hospital on 05/31/24 with complaints of increasing shortness of breath. He was felt to be in fluid over and treated with IV lasix, leading to improvement in symptoms. No fever/chills. No chest pain or palpitations. No nausea, vomiting or diarrhea. He does admit to eating canned vegetables but other denies adding salt to his foods. Hyponatremia and Hyperkalemia resolved. Continue lasix 40 Q12 for CHF exacerbation. Hyperglycemia now under control. Pt will likely d/c tomorrow. He will need close f/u with PCP, Nephrology, and cardiology to prevent readmission. Pt has had repeat admissions for this dx. He denies any concerns today. 06/02/24 Pt sitting in bed. He states this morning he felt dizzy after using the bathroom and fell to the floor on his hands and knees. he reports no injuries. Stopped BID lasix and resumed PO lasix daily. Creat up at 1.30. encouraged pt to drink fluids as he may be a bit dehydrated from IV lasix. Dizziness improved this afternoon. will keep pt another night and make sure he is safe to d/c tomorrow. He denies CP, SOB, abd. pain, N/V/D. 06/03/24 Pt resting in bed. He states he feels fine and would like to d/c. He c/o BLLE weakness that is chronic but worsening. He is agreeable to [facility]. May need rehab or cardiac rehab and discussed with case management.PT to eval for needs OP Pt has acute on chronic kidney disease and creat. increased today. Will hold Lasix and start NS @ 50 ml/hr. - Review of Systems Constitutional: Weakness, No Fever, No Chills Eyes: No Symptoms Ears, Nose, & Throat: No Symptoms Respiratory: No Cough, No Short Of Breath Cardiac: No Chest Pain, No Edema, No Syncope Abdominal/Gastrointestinal: No Abdominal Pain, No Nausea, No Vomiting, No Diarrhea Genitourinary Symptoms: No Dysuria Musculoskeletal: No Back Pain, No Neck Pain Skin: No Rash Neurological: No Dizziness, No Focal Weakness, No Sensory Changes Psychological: No Symptoms Endocrine: No Symptoms Hematologic/Lymphatic: No Symptoms Immunological/Allergic: No Symptoms Objective Exam General Appearance: no apparent distress, alert Neurologic Exam: alert, oriented x 3, cooperative, normal mood/affect, nml cerebellar function, sensation nml, No motor deficits Skin Exam: normal color, warm, dry Eye Exam: PERRL, EOMI, eyes nml inspection Ears, Nose, Throat Exam: normal ENT inspection, pharynx normal, moist mucous membranes Neck Exam: normal inspection, non-tender, supple, full range of motion Respiratory Exam: normal breath sounds, lungs clear, No respiratory distress Cardiovascular Exam: regular rate/rhythm, normal heart sounds Gastrointestinal/Abdomen Exam: soft, No tenderness, No mass Extremity Exam: normal inspection, normal range of motion Back Exam: normal inspection, normal range of motion, No CVA tenderness, No vertebral tenderness Male Genitalia Exam: deferred Rectal Exam: deferred Objective Data Vital Signs: Vital Signs - 24 hr Temp Pulse Resp BP Pulse Ox 06/03/24 09:29 100 06/03/24 07:48 97.5 F 81 16 117/58 97 06/03/24 04:40 97.9 F 100 H 18 105/71 99 06/02/24 23:36 97.1 F 80 20 128/65 98 06/02/24 20:44 97.1 F 78 19 116/70 96 06/02/24 17:00 97.3 F 86 17 142/81 98 06/02/24 12:25 97.7 F 93 H 17 119/72 100 Pain Assessment - Last Documented Pain Intensity 0 Intake and Output: Intake & Output 05/31/24 06/01/24 06/02/24 06/03/24 11:59 11:59 11:59 11:59 Intake Total 091 442 1296 Output Total 2721 7400 8397 Balance -5689 -6956 -1728 Weight 83 kg 79.3 kg 79.1 kg Lab Results: Lab Results-Last 24 Hours 06/02/24 06/02/24 06/02/24 Range/Units 11:29 16:54 21:07 WBC (4.23-9.07) x10^3/uL RBC (4.63-6.08) x10^6/uL Hgb (13.7-17.5) g/dL Hct (40.1-51.0) % MCV (79.0-92.2) fL MCH (25.7-32.2) pg MCHC (32.3-36.5) g/dL RDW (11.6-14.4) % Plt Count (163-337) x10^3/uL MPV (9.4-12.4) fL Sodium (135-145) mmol/L Potassium (3.5-5.1) mmol/L Chloride (98-107) mmol/L Carbon Dioxide (22-30) mmol/L Anion Gap (5-15) MEQ/L BUN (9-20) mg/dL Creatinine (0.66-1.25) mg/dL Estimated GFR ML/MIN Glucose (74-106) mg/dL POC Glucometer 217 H 270 H 388 H (74 to 106) mg/dL Calcium (8.4-10.2) mg/dL Total Bilirubin (0.2-1.3) mg/dL AST (17-59) U/L ALT (0-50) U/L Alkaline Phosphatase (38-126) U/L Serum Total Protein (6.3-8.2) g/dL Albumin (3.5-5.0) g/dL 06/03/24 06/03/24 06/03/24 Range/Units 05:00 05:00 06:45 WBC 5.7 (4.23-9.07) x10^3/uL RBC 3.51 L (4.63-6.08) x10^6/uL Hgb 10.0 L (13.7-17.5) g/dL Hct 30.1 L (40.1-51.0) % MCV 85.8 (79.0-92.2) fL MCH 28.5 (25.7-32.2) pg MCHC 33.2 (32.3-36.5) g/dL RDW 15.3 H (11.6-14.4) % Plt Count 207 (163-337) x10^3/uL MPV 10.5 (9.4-12.4) fL Sodium 135 (135-145) mmol/L Potassium 4.3 (3.5-5.1) mmol/L Chloride 100 (98-107) mmol/L Carbon Dioxide 25 (22-30) mmol/L Anion Gap 14.1 (5-15) MEQ/L BUN 39 H (9-20) mg/dL Creatinine 1.51 H (0.66-1.25) mg/dL Estimated GFR 50.9 ML/MIN Glucose 130 H (74-106) mg/dL POC Glucometer 105 (74 to 106) mg/dL Calcium 8.5 (8.4-10.2) mg/dL Total Bilirubin 0.50 (0.2-1.3) mg/dL AST 23 (17-59) U/L ALT 25 (0-50) U/L Alkaline Phosphatase 121 (38-126) U/L Serum Total Protein 6.2 L (6.3-8.2) g/dL Albumin 3.3 L (3.5-5.0) g/dL 06/03/24 Range/Units 11:10 WBC (4.23-9.07) x10^3/uL RBC (4.63-6.08) x10^6/uL Hgb (13.7-17.5) g/dL Hct (40.1-51.0) % MCV (79.0-92.2) fL MCH (25.7-32.2) pg MCHC (32.3-36.5) g/dL RDW (11.6-14.4) % Plt Count (163-337) x10^3/uL MPV (9.4-12.4) fL Sodium (135-145) mmol/L Potassium (3.5-5.1) mmol/L Chloride (98-107) mmol/L Carbon Dioxide (22-30) mmol/L Anion Gap (5-15) MEQ/L BUN (9-20) mg/dL Creatinine (0.66-1.25) mg/dL Estimated GFR ML/MIN Glucose (74-106) mg/dL POC Glucometer 265 H (74 to 106) mg/dL Calcium (8.4-10.2) mg/dL Total Bilirubin (0.2-1.3) mg/dL AST (17-59) U/L ALT (0-50) U/L Alkaline Phosphatase (38-126) U/L Serum Total Protein (6.3-8.2) g/dL Albumin (3.5-5.0) g/dL Assessment/Plan (1) Acute exacerbation of CHF (congestive heart failure) Current Visit: Yes Status: Acute Qualifiers: Code(s): I50.9 - HEART FAILURE, UNSPECIFIED (2) Type 2 diabetes mellitus with diabetic chronic kidney disease Current Visit: Yes Status: Acute Qualifiers: Chronic kidney disease stage: stage 3 (moderate) Chronic kidney disease stage 3 subtype: stage 3b (GFR 30-44) Code(s): E11.22 - TYPE 2 DIABETES MELLITUS W DIABETIC CHRONIC KIDNEY DISEASE (3) Acute kidney injury superimposed on CKD Current Visit: No Status: Acute Code(s): N17.9 - ACUTE KIDNEY FAILURE, UNSPECIFIED; N18.9 - CHRONIC KIDNEY DISEASE, UNSPECIFIED (4) Hyperkalemia Current Visit: No Status: Resolved Code(s): E87.5 - HYPERKALEMIA (5) Hyponatremia Current Visit: No Status: Resolved Assessment & Plan: (1) Acute exacerbation of CHF (congestive heart failure) Current Visit: Yes Status: Acute Qualifiers: Assessment & Plan: Secondary to dietary indiscretion with sodium 1. Admit to hospital 2. IV diuretics 3. Limit sodium intake 4. Follow daily weights, I/Os 06/02 - resume PO lasix, stop IV BID lasix 06/03 - Hold lasix Code(s): I50.9 - HEART FAILURE, UNSPECIFIED (2) Type 2 diabetes mellitus with diabetic chronic kidney disease Current Visit: Yes Status: Acute Qualifiers: Chronic kidney disease stage: stage 3 (moderate) Chronic kidney disease stage 3 subtype: stage 3b (GFR 30-44) Assessment & Plan: Sugars under poor control 1. ADA diet 2. FSBS qAC/HS with SSI 3. Check UPC 4. Monitor blood sugars 5. A1C 10.40- 05/09/24- uncontrolled 6. nutrition consult 7. Education on the importance of good glycemic control. Code(s): E11.22 - TYPE 2 DIABETES MELLITUS W DIABETIC CHRONIC KIDNEY DISEASE (3) Acute kidney injury superimposed on CKD Current Visit: No Status: Acute Assessment & Plan: Secondary to cardiorenal syndrome 1. Check urine lytes 2. Follow I/O's 3. Watch electrolytes, creatinine closely 06/02 - Creat 1.30, Baseline 1.24 - Stop IV lasix BID - resume home lasix PO daily 06/03 - Creat 1.51- Stop Lasix and start NS @ 50ml/hr. Code(s): N17.9 - ACUTE KIDNEY FAILURE, UNSPECIFIED; N18.9 - CHRONIC KIDNEY DISEASE, UNSPECIFIED (4) Hyperkalemia Current Visit: No Status: Resolved Assessment & Plan: Secondary to dietary indiscretion 1. Low K diet 2. Defer K [place] 3. Hold KERMIT/ARB - resolved Code(s): E87.5 - HYPERKALEMIA (5) Hyponatremia Current Visit: No Status: Resolved Assessment & Plan: Hypervolemic hyponatremia 1. Limit free water 2. Continue diuretics 3. Monitor sodium level - resolved Code(s): E87.1 - HYPO-OSMOLALITY AND HYPONATREMIA (6) Weakness Current Visit: Yes Status: Acute Assessment & Plan: - PT eval and treat - consider OP rehab or PT - Pt agreeable to [facility] - Fall on 06/02/24 VTE: Lovenox PPI: pantoprazole Next of KIN: Heath Santos [phone] D/C plan: 1-2 days Code status: Full Code(s): R53.1 - WEAKNESS
[2024-06-03] MEDS: Sodium Chloride 0.9% 1000 ML 1,000 ML IV SCH (12:07)
[2024-06-04 05:35] LABS: Hematocrit 29.8 % (40.1-51.0); Hemoglobin 9.7 g/dL (13.7-17.5); Mean Cell Volume 86.4 fL (79.0-92.2); Mean Corpuscular Hemoglobin 28.1 pg (25.7-32.2); Mean Corpuscular Hgb Concent. 32.6 g/dL (32.3-36.5); Mean Platelet Volume 10.7 fL (9.4-12.4); Platelet Count 173 x10^3/uL (163-337); Red Blood Count 3.45 x10^6/uL (4.63-6.08); Red Cell Distribution Width 15.1 % (11.6-14.4); White Blood Count 4.8 x10^3/uL (4.23-9.07)
[2024-06-04 05:48] LABS: ALBUMIN 3.3 g/dL (3.5-5.0); ANION GAP 13.5 MEQ/L (5-15); BILIRUBIN,TOTAL 0.4 mg/dL (0.2-1.3); Calcium 8.4 mg/dL (8.4-10.2); Creatinine 1 1.26 mg/dL (0.66-1.25); EST GLOMERULAR FILTRATION RATE 63.3 ML/MIN; Potassium 4.1 mmol/L (3.5-5.1); Total Protein 6.2 g/dL (6.3-8.2)
[2024-06-04 11:44] VITALS: BP 139/71; PULSE 74; RESP 16; TEMP 96.9; O2SAT 99
--- NOTE | 2024-06-04 11:48 | PCM.DS ---
Discharge Summary Date of Admission: 05/31/24 21:56 Date of Discharge: 06/04/24 Admitting Physician: RUBEN YNAG MD Consults: Consults on Case 06/03/24 11:30 Nutritional Consult ROUTINE Primary Care Provider: ROGELIO CAVAZOS DO Allergies Allergies diphenhydramine [From Benadryl] Allergy (Verified 05/31/24 22:19) Difficulty Breathing Iodinated Contrast Media Allergy (Verified 05/31/24 22:19) Difficulty Breathing Hospital Summary - Hospital Course Hospital Course: 06/01/24 is a 63 year old male with a past medical history significant for hypertension, diabetes, hyperlipidemia and CHF who presented to the hospital on 05/31/24 with complaints of increasing shortness of breath. He was felt to be in fluid over and treated with IV lasix, leading to improvement in symptoms. No fever/chills. No chest pain or palpitations. No nausea, vomiting or diarrhea. He does admit to eating canned vegetables but other denies adding salt to his foods. Hyponatremia and Hyperkalemia resolved. Continue lasix 40 Q12 for CHF exacerbation. Hyperglycemia now under control. Pt will likely d/c tomorrow. He will need close f/u with PCP, Nephrology, and cardiology to prevent readmission. Pt has had repeat admissions for this dx. He denies any concerns today. 06/02/24 Pt sitting in bed. He states this morning he felt dizzy after using the bathroom and fell to the floor on his hands and knees. he reports no injuries. Stopped BID lasix and resumed PO lasix daily. Creat up at 1.30. encouraged pt to drink fluids as he may be a bit dehydrated from IV lasix. Dizziness improved this afternoon. will keep pt another night and make sure he is safe to d/c tomorrow. He denies CP, SOB, abd. pain, N/V/D. 06/03/24 Pt resting in bed. He states he feels fine and would like to d/c. He c/o BLLE weakness that is chronic but worsening. He is agreeable to [facility]. May need rehab or cardiac rehab and discussed with case management.PT to eval for needs OP Pt has acute on chronic kidney disease and creat. increased today. Will hold Lasix and start NS @ 50 ml/hr. 06/04/24 Pt resting in bed. He states he feels fine and wants to d/c. Creat improved and near baseline. Pt to have labs drawn weekly by [facility]. Pt to follow closely with PCP, cardiology, and nephrology. He was willing to have home health care this time. Pt is at high risk for readmission d/t noncompliance with meds.Stressed the importance of f/u with specialist. He denies Cp, SOB, Abd. pain, N/V/d. - Vitals & Intake/Output Vital Signs: Vital Signs Temperature 97.5 F 06/04/24 07:08 Pulse Rate 90 06/04/24 07:08 Respiratory Rate 18 06/04/24 07:08 Blood Pressure 141/76 06/04/24 07:08 O2 Sat by Pulse Oximetry 98 06/04/24 07:08 Intake & Output: Intake & Output 06/01/24 06/02/24 06/03/24 06/04/24 11:59 11:59 11:59 11:59 Intake Total 632 479 4454 2825 Output Total 1850 2251 3876 3300 Balance -1050 -1530 -2215 -475 Weight 83 kg 79.3 kg 79.1 kg - Lab Result Diagrams: 06/04/24 04:43 06/04/24 04:43 Lab Results-Last 24 Hrs: Lab Results-Last 24 Hours 06/03/24 06/03/24 06/04/24 Range/Units 16:07 21:09 04:43 WBC 4.8 (4.23-9.07) x10^3/uL RBC 3.45 L (4.63-6.08) x10^6/uL Hgb 9.7 L (13.7-17.5) g/dL Hct 29.8 L (40.1-51.0) % MCV 86.4 (79.0-92.2) fL MCH 28.1 (25.7-32.2) pg MCHC 32.6 (32.3-36.5) g/dL RDW 15.1 H (11.6-14.4) % Plt Count 173 (163-337) x10^3/uL MPV 10.7 (9.4-12.4) fL Sodium (135-145) mmol/L Potassium (3.5-5.1) mmol/L Chloride (98-107) mmol/L Carbon Dioxide (22-30) mmol/L Anion Gap (5-15) MEQ/L BUN (9-20) mg/dL Creatinine (0.66-1.25) mg/dL Estimated GFR ML/MIN Glucose (74-106) mg/dL POC Glucometer 261 H 236 H (74 to 106) mg/dL Calcium (8.4-10.2) mg/dL Total Bilirubin (0.2-1.3) mg/dL AST (17-59) U/L ALT (0-50) U/L Alkaline Phosphatase (38-126) U/L Serum Total Protein (6.3-8.2) g/dL Albumin (3.5-5.0) g/dL 06/04/24 06/04/24 06/04/24 Range/Units 04:43 06:59 11:41 WBC (4.23-9.07) x10^3/uL RBC (4.63-6.08) x10^6/uL Hgb (13.7-17.5) g/dL Hct (40.1-51.0) % MCV (79.0-92.2) fL MCH (25.7-32.2) pg MCHC (32.3-36.5) g/dL RDW (11.6-14.4) % Plt Count (163-337) x10^3/uL MPV (9.4-12.4) fL Sodium 135 (135-145) mmol/L Potassium 4.1 (3.5-5.1) mmol/L Chloride 102 (98-107) mmol/L Carbon Dioxide 23 (22-30) mmol/L Anion Gap 13.5 (5-15) MEQ/L BUN 35 H (9-20) mg/dL Creatinine 1.26 H (0.66-1.25) mg/dL Estimated GFR 63.3 ML/MIN Glucose 126 H (74-106) mg/dL POC Glucometer 133 H 157 H (74 to 106) mg/dL Calcium 8.4 (8.4-10.2) mg/dL Total Bilirubin 0.40 (0.2-1.3) mg/dL AST 32 (17-59) U/L ALT 30 (0-50) U/L Alkaline Phosphatase 130 H (38-126) U/L Serum Total Protein 6.2 L (6.3-8.2) g/dL Albumin 3.3 L (3.5-5.0) g/dL Micro Results-Entire Visit: Accuchecks Date 06/04/24 Date 06/03/24 - Procedures and Test Procedures and Tests throughout Hospitalization: Therapy Orders & Screens 05/31/24 19:18 Respiratory Therapy Assessment DAILY Comment: 05/31/24 22:00 Respiratory Therapy Consult ONCE Comment: Reason For Exam: 06/01/24 00:00 Respiratory Therapy Consult ONCE Comment: Reason For Exam: Diagnosis: CHF Exacerbation Discharge Exam General Appearance: no apparent distress, alert Neurologic Exam: alert, oriented x 3, cooperative, normal mood/affect, nml cerebellar function, sensation nml, No motor deficits Eye Exam: PERRL, EOMI, eyes nml inspection Ears, Nose, Throat Exam: normal ENT inspection, pharynx normal, moist mucous membranes Neck Exam: normal inspection, non-tender, supple, full range of motion Respiratory Exam: normal breath sounds, lungs clear, No respiratory distress Cardiovascular Exam: regular rate/rhythm, normal heart sounds Gastrointestinal/Abdomen Exam: soft, No tenderness, No mass Male Genitalia Exam: deferred Rectal Exam: deferred Back Exam: normal inspection, normal range of motion, No CVA tenderness, No vertebral tenderness Extremity Exam: normal inspection, normal range of motion Skin Exam: normal color, warm, dry Final Diagnosis/Problem List - Final Discharge Diagnosis/Problem (1) Acute exacerbation of CHF (congestive heart failure) Current Visit: Yes Status: Acute Code(s): I50.9 - HEART FAILURE, UNSPECIFIED (2) Type 2 diabetes mellitus with diabetic chronic kidney disease Current Visit: Yes Status: Acute Code(s): E11.22 - TYPE 2 DIABETES MELLITUS W DIABETIC CHRONIC KIDNEY DISEASE (3) Acute kidney injury superimposed on CKD Current Visit: No Status: Acute Code(s): N17.9 - ACUTE KIDNEY FAILURE, UNSPECIFIED; N18.9 - CHRONIC KIDNEY DISEASE, UNSPECIFIED (4) Hyperkalemia Current Visit: No Status: Resolved Code(s): E87.5 - HYPERKALEMIA (5) Hyponatremia Current Visit: No Status: Resolved Code(s): E87.1 - HYPO-OSMOLALITY AND HYPONATREMIA (6) Weakness Current Visit: Yes Status: Acute Assessment & Plan: (1) Acute exacerbation of CHF (congestive heart failure) Current Visit: Yes Status: Acute Qualifiers: Assessment & Plan: Secondary to dietary indiscretion with sodium 1. Admit to hospital 2. IV diuretics 3. Limit sodium intake 4. Follow daily weights, I/Os 06/02 - resume PO lasix, stop IV BID lasix 06/03 - Hold lasix 06/04 - Hold lasix again today - F/u with cardiology OP. Code(s): I50.9 - HEART FAILURE, UNSPECIFIED (2) Type 2 diabetes mellitus with diabetic chronic kidney disease Current Visit: Yes Status: Acute Qualifiers: Chronic kidney disease stage: stage 3 (moderate) Chronic kidney disease stage 3 subtype: stage 3b (GFR 30-44) Assessment & Plan: Sugars under poor control 1. ADA diet 2. FSBS qAC/HS with SSI 3. Check UPC 4. Monitor blood sugars 5. A1C 10.40- 05/09/- uncontrolled 6. nutrition consult 7. Education on the importance of good glycemic control. 8. F/u with nephrology OP Code(s): E11.22 - TYPE 2 DIABETES MELLITUS W DIABETIC CHRONIC KIDNEY DISEASE (3) Acute kidney injury superimposed on CKD Current Visit: No Status: Acute Assessment & Plan: Secondary to cardiorenal syndrome 1. Check urine lytes 2. Follow I/O's 3. Watch electrolytes, creatinine closely 06/02 - Creat 1.30, Baseline 1.24 - Stop IV lasix BID - resume home lasix PO daily 06/03 - Creat 1.51- Stop Lasix and start NS @ 50ml/hr. 06/04 - Creat 1.26- improved - [facility] to draw labs weekly. Code(s): N17.9 - ACUTE KIDNEY FAILURE, UNSPECIFIED; N18.9 - CHRONIC KIDNEY DISEASE, UNSPECIFIED (4) Hyperkalemia Current Visit: No Status: Resolved Assessment & Plan: Secondary to dietary indiscretion 1. Low K diet 2. Defer K [place] 3. Hold KERMIT/ARB - resolved Code(s): E87.5 - HYPERKALEMIA (5) Hyponatremia Current Visit: No Status: Resolved Assessment & Plan: Hypervolemic hyponatremia 1. Limit free water 2. Continue diuretics 3. Monitor sodium level - resolved Code(s): E87.1 - HYPO-OSMOLALITY AND HYPONATREMIA (6) Weakness Current Visit: Yes Status: Acute Assessment & Plan: - PT eval and treat - consider OP rehab or PT - Pt agreeable to [facility] - Fall on 06/02/24 Code(s): R53.1 - WEAKNESS - Discharge Discharge Date: 06/04/24 Disposition: Home, Self-Care Condition: Stable Prescriptions: Continue Duloxetine HCl [Cymbalta] 60 mg PO BID Ropinirole 2Mg [Requip 2Mg Tab] 2 mg PO HS Insulin Glargine [Lantus Insulin] 50 unit SQ DAILY Apixaban [Eliquis 2.5 mg Tablet] 5 mg PO BID 30 Days #60 tablet Furosemide 40 mg [Lasix 40 MG] 40 mg PO DAILY 30 Days #30 tablet Empagliflozin [Jardiance] 25 mg PO DAILY Carvedilol 12.5 mg [Coreg 12.5 mg] 12.5 mg PO BID 30 Days #60 tablet Trazodone HCl 50 mg [Desyrel 50 mg] 50 mg PO HS PRN 30 Days #30 tablet PRN Reason: Insomnia Atorvastatin Calcium [Lipitor 40Mg] 40 mg PO HS 30 Days #30 tablet Gabapentin [Neurontin ] 100 mg PO TID 30 Days #90 cap Omeprazole 40 mg PO DAILY PRN 30 Days #30 cap PRN Reason: Indigestion Insulin Lispro [Humalog] 3 unit SQ TIDWM 30 Days #100 units Insulin Lispro [Humalog] 0 unit SQ ACHS Potassium Chloride 10 meq PO DAILY 30 Days #30 tablet Lisinopril 10 mg [Zestril 10 MG] 10 mg PO HS Additional Instructions: [facility] HAS BEEN SET UP FOR YOU. THEY WILL CALL YOU TO ARRANGE A TIME TO COME SEE YOU. THEIR PHONE NUMBER IS [phone] IF YOU NEED ANYTHING BEFORE THEY CONTACT YOU Follow up with: ROGELIO CAVAZOS DO [Primary Care Provider] - 06/09/24 3:00 pm HUBER MAYEN [CONSULTING PHYSICIAN] - 06/22/24 2:20 pm (at [facility]) FIONA BOBO PA [NON-STAFF PHY W/O PRIVILEGES] - 06/17/24 9:45 am (at [facility])
--- NOTE | 2024-06-04 12:12 | PCM.NOTE ---
Date and Time: 06/04/24 1206 Objective Data Vital Signs: Vital Signs - 24 hr Temp Pulse Resp BP Pulse Ox 06/04/24 11:43 96.9 F 74 16 139/71 99 06/04/24 07:08 97.5 F 90 18 141/76 98 06/04/24 04:00 97.7 F 75 18 118/73 98 06/03/24 23:34 97.3 F 78 18 128/80 99 06/03/24 19:59 97.6 F 81 18 116/56 100 06/03/24 16:33 97.1 F 75 16 145/80 93 L Pain Assessment - Last Documented Pain Intensity 0 Intake and Output: Intake & Output 06/02/24 06/03/24 06/04/24 06/05/24 06:59 06:59 06:59 06:59 Intake Total 1280 1660 2825 120 Output Total 3200 3875 3300 Balance -9507 -3313 -479 120 Weight 79.3 kg 79.1 kg Lab Results: Lab Results-Last 24 Hours 06/03/24 06/03/24 06/04/24 Range/Units 16:07 21:09 04:43 WBC 4.8 (4.23-9.07) x10^3/uL RBC 3.45 L (4.63-6.08) x10^6/uL Hgb 9.7 L (13.7-17.5) g/dL Hct 29.8 L (40.1-51.0) % MCV 86.4 (79.0-92.2) fL MCH 28.1 (25.7-32.2) pg MCHC 32.6 (32.3-36.5) g/dL RDW 15.1 H (11.6-14.4) % Plt Count 173 (163-337) x10^3/uL MPV 10.7 (9.4-12.4) fL Sodium (135-145) mmol/L Potassium (3.5-5.1) mmol/L Chloride (98-107) mmol/L Carbon Dioxide (22-30) mmol/L Anion Gap (5-15) MEQ/L BUN (9-20) mg/dL Creatinine (0.66-1.25) mg/dL Estimated GFR ML/MIN Glucose (74-106) mg/dL POC Glucometer 261 H 236 H (74 to 106) mg/dL Calcium (8.4-10.2) mg/dL Total Bilirubin (0.2-1.3) mg/dL AST (17-59) U/L ALT (0-50) U/L Alkaline Phosphatase (38-126) U/L Serum Total Protein (6.3-8.2) g/dL Albumin (3.5-5.0) g/dL 06/04/24 06/04/24 06/04/24 Range/Units 04:43 06:59 11:41 WBC (4.23-9.07) x10^3/uL RBC (4.63-6.08) x10^6/uL Hgb (13.7-17.5) g/dL Hct (40.1-51.0) % MCV (79.0-92.2) fL MCH (25.7-32.2) pg MCHC (32.3-36.5) g/dL RDW (11.6-14.4) % Plt Count (163-337) x10^3/uL MPV (9.4-12.4) fL Sodium 135 (135-145) mmol/L Potassium 4.1 (3.5-5.1) mmol/L Chloride 102 (98-107) mmol/L Carbon Dioxide 23 (22-30) mmol/L Anion Gap 13.5 (5-15) MEQ/L BUN 35 H (9-20) mg/dL Creatinine 1.26 H (0.66-1.25) mg/dL Estimated GFR 63.3 ML/MIN Glucose 126 H (74-106) mg/dL POC Glucometer 133 H 157 H (74 to 106) mg/dL Calcium 8.4 (8.4-10.2) mg/dL Total Bilirubin 0.40 (0.2-1.3) mg/dL AST 32 (17-59) U/L ALT 30 (0-50) U/L Alkaline Phosphatase 130 H (38-126) U/L Serum Total Protein 6.2 L (6.3-8.2) g/dL Albumin 3.3 L (3.5-5.0) g/dL Multi-Disciplinary Progress Notes: Multi-Disciplinary Progress Notes 06/03/24 15:14 Physical Therapy Note by Warren#[id number])Nicole PT. ABLE TO AMBULATE W/ TREASURY REPRESENTATIVE W/ RW WITHOUT ISSUES. PT. HAS RW AT HOME. P.T. EVAL NOT WARRANTED AT THIS TIME. Initialized on 06/03/24 15:14 - END OF NOTE Telemedicine Encounter - Telemedicine Encounter Telemedicine Encounter: "The entirety of this encounter was performed via Telemedicine" This visit was performed using real-time audio and video connection between my location and thepatients locationwith the assistance of a surrogateat the patients location. Written or verbal consent was obtained from the patient/guardian to perform this [facility]. Any patient questions regarding the telemedicine interaction were answered.
== END 2024-06-04 13:22 | disposition home or self-care (01) ==
LOC: ED 18:41 → MED SURG 21:56
PROVIDERS: ADMIT Internal Medicine Nephrology; ATTEND Internal Medicine Nephrology
DX: I12.9 Hypertensive chronic kidney disease with stage 1 through stage 4 chronic kidney disease, or unspecified chronic kidney disease (principal); E11.22 Type 2 diabetes mellitus with diabetic chronic kidney disease; Z59.12 Inadequate housing utilities; I50.9 Heart failure, unspecified; N18.30 Chronic kidney disease, stage 3 unspecified; N17.9 Acute kidney failure, unspecified; E87.5 Hyperkalemia; E87.1 Hypo-osmolality and hyponatremia; R53.1 Weakness; G47.30 Sleep apnea, unspecified; Z79.899 Other long term (current) drug therapy; Z79.01 Long term (current) use of anticoagulants
CPT/HCPCS: 36000; 36415; 71045; 80053; 81001; 82805; 82947; 83605; 83690; 83735; 83880; 84484; 85025; 85027; 93005; 93041; 94640; 96374; 96375; 99285; Q3014; 93268; J1815; J1817; J1940; A9270-GY; G0378

== ENCOUNTER 2024-06-08 09:24 | Emergency (ER) | payer MEDICARE ==
[2024-06-08 09:34] VITALS: TEMP 97.2
--- NOTE | 2024-06-08 09:44 | ERPHSYRPT ---
- History of Present Illness Time Seen by Provider: 06/08/24 09:41 Source: patient Exam Limitations: no limitations Patient Subjective Stated Complaint: C/O headache for 2 days. Did not take his lisinopril as prescribed this am. Triage Nursing Assessment: Patient ambulated back to ER with a cane. He is alert and oriented. No SOB. SALINAS WNL. Denies fall or injury. Denies N/V. Accucheck per ER glucometer at this [facility] is 270. Physician History: Patient is in with complaints of basically fatigue and not feeling good. He has a headache he has some generalized malaise and myalgias. He says he is little short of breath. He does not say has had fever or chills but says he has been cold. Nothing makes his symptoms better or worse.He has multiple medical problems.His sugars on admission were 270. That is not bad for him. He says that he has had some chest tightness. 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 multiple medical problems including uncontrolled diabetes Allergies/Adverse Reactions: diphenhydramine [From Benadryl] Allergy (Verified 06/08/24 09:37) Difficulty Breathing Iodinated Contrast Media Allergy (Verified 06/08/24 09:37) Difficulty Breathing Home Medications: Duloxetine HCl [Cymbalta] 60 mg PO BID 07/28/23 [History] Insulin Glargine [Lantus Insulin] 50 unit SQ BID 07/28/23 [History] Ropinirole 2Mg [Requip 2Mg Tab] 2 mg PO HS 07/28/23 [History] Empagliflozin [Jardiance] 25 mg PO DAILY 01/29/24 [History] Insulin Lispro [Humalog] 0 unit SQ ACHS 05/07/24 [History] Lisinopril 10 mg [Zestril 10 MG] 10 mg PO HS 05/31/24 [History] Trazodone HCl 50 mg [Desyrel 50 mg] 50 mg PO HS 06/08/24 [History] Hx Tetanus, Diphtheria Vaccination/Date Given: Yes Hx Influenza Vaccination/Date Given: Yes Hx Pneumococcal Vaccination/Date Given: Yes Immunizations Up to Date: Yes Travel Risk - International Travel Have you traveled outside of the country in past 3 weeks: No - Emerging Infectious Disease Are you exhibiting symptoms associated with any current EIDs: Yes Symptoms: Headaches/Body Aches/ - Review of Systems Constitutional: Chills, Fatigue, Malaise Eyes: No Symptoms Respiratory: Cough Abdominal/Gastrointestinal: No Symptoms Genitourinary Symptoms: No Symptoms Skin: No Symptoms Neurological: No Symptoms - Past Medical History Pertinent Past Medical History: Yes Neurological History: Peripheral Neuropathy, Stroke ENT History: Cataracts Cardiac History: Arrhythmia, Congestive Heart Failure, High Cholesterol, Hypertension Respiratory History: CHF, COPD, Sleep Apnea Endocrine Medical History: Diabetes Type II Musculoskeletal History: Arthritis, Osteoarthritis, Other GI Medical History: GERD, Gallbladder Disease History: Renal Disease Psycho-Social History: Anxiety, Depression Male Reproductive Disorders: No Pertinent History Other Medical History: a.fib, restless leg, bulging discs cervical spine, carpal tunnel, 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 - Past Surgical History Past Surgical History: Yes Neuro Surgical History: No Pertinent History Cardiac: Pacemaker Respiratory: No Pertinent History Gastrointestinal: Cholecystectomy Genitourinary: No Pertinent History Musculoskeletal: Amputation Male Surgical History: No Pertinent History Other Surgical History: cardiac ablation, 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, Right hand 1st/2nd partial amputations Significant Family History: no pertinent family hx (No family history pertaining to this admission reported) - Social History Smoking Status: Never smoker Exposure to second hand smoke: Yes Drug Use: none Patient Lives Alone: No - Social Determinants of Health Will the patient participate in the screening: Declined to provide - Nursing Vital Signs Nursing Vital Signs: Initial Vital Signs Temperature 97.2 F 06/08/24 09:26 Pulse Rate 70 06/08/24 09:26 Respiratory Rate 13 06/08/24 09:26 Blood Pressure 173/105 06/08/24 09:26 O2 Sat by Pulse Oximetry 100 06/08/24 09:26 Pain Scale Pain Intensity 6 - Physical Exam General Appearance: no apparent distress Eye Exam: PERRL/EOMI Respiratory Exam: normal breath sounds, lungs clear, No chest tenderness, No respiratory distress Cardiovascular Exam: regular rate/rhythm, normal heart sounds Gastrointestinal/Abdomen Exam: soft, normal bowel sounds Back Exam: normal inspection, normal range of motion Extremity Exam: normal inspection, normal range of motion Neurologic Exam: alert, oriented x 3, cooperative Skin Exam: normal color, warm SpO2: 99 - Course Nursing assessment & vital signs reviewed: Yes EKG Interpreted by Me: RATE, Sinus Rhythm, NORMAL AXIS, NORMAL INTERVALS Ordered Tests: Active Orders 24 hr Category Date Time Status EKG-ER Only STAT Care 06/08/24 09:38 Active CHEST 1 VIEW (PORTABLE) Stat Exams 06/08/24 09:38 Completed CBC W DIFF Stat Lab 06/08/24 09:38 Completed CMP Stat Lab 06/08/24 09:51 Completed CULTURE,URINE Stat Lab 06/08/24 11:05 Received MAG [MAGNESIUM] Stat Lab 06/08/24 09:51 Completed NT PRO BNPII Stat Lab 06/08/24 09:51 Completed TROPONIN Q4H Lab 06/08/24 09:51 Completed TROPONIN Q4H Lab 06/08/24 13:45 Ordered TROPONIN Q4H Lab 06/08/24 17:45 Ordered UA W/RFX UR CULTURE Stat Lab 06/08/24 11:05 Completed Medication Summary Generic Name Dose Route Start Last Admin Trade Name Freq PRN Reason Stop Dose Admin Carvedilol 25 mg 06/08/24 10:00 06/08/24 09:53 Carvedilol 12.5 Mg Tablet PO 07/08/24 09:59 25 mg BID JUAN Administration Discontinued Medications Generic Name Dose Route Start Last Admin Trade Name Freq PRN Reason Stop Dose Admin Ketorolac Tromethamine 15 mg 06/08/24 12:28 06/08/24 12:53 Ketorolac Tromethamine 30 Mg/Ml Inj IV 06/08/24 12:29 15 mg STAT ONE Administration Ketorolac Tromethamine Confirm 06/08/24 12:52 Ketorolac Tromethamine 30 Mg/Ml Inj Administered 06/08/24 12:53 Dose 30 mg .ROUTE .STK-MED ONE Lisinopril 20 mg 06/08/24 09:40 06/08/24 09:53 Lisinopril 20 Mg Tablet PO 06/08/24 09:41 20 mg STAT ONE Administration Lab/Rad Data: Laboratory Result Diagrams 06/08/24 09:38 06/08/24 09:51 Laboratory Results 06/08/24 06/08/24 06/08/24 Range/Units 11:05 09:51 09:51 WBC (4.23-9.07) x10^3/uL RBC (4.63-6.08) x10^6/uL Hgb (13.7-17.5) g/dL Hct (40.1-51.0) % MCV (79.0-92.2) fL MCH (25.7-32.2) pg MCHC (32.3-36.5) g/dL RDW (11.6-14.4) % Plt Count (163-337) x10^3/uL MPV (9.4-12.4) fL Gran % (34.0-67.9) % Immature Gran % (Auto) (0.001-0.429) % Nucleat RBC Rel Count (0.00-0.2) % Eos # (Auto) (0.04-0.54) x10^3/uL Immature Gran # (Auto) (0.001-0.031) x10^3u/L Absolute Lymphs (auto) (1.32-3.57) x10^3/uL Absolute Monos (auto) (0.30-0.82) x10^3/uL Absolute Nucleated RBC (0.00-0.012) x10^3u/L Lymphocytes % (21.8-53.1) % Monocytes % (5.3-12.2) % Eosinophils % (0.8-7.0) % Basophils % (0.2-1.2) % Absolute Granulocytes (1.78-5.38) x10^3/uL Basophils # (0.01-0.08) x10^3/uL Sodium 134 L (135-145) mmol/L Potassium 4.8 (3.5-5.1) mmol/L Chloride 99 (98-107) mmol/L Carbon Dioxide 24 (22-30) mmol/L Anion Gap 15.8 H (5-15) MEQ/L BUN 26 H (9-20) mg/dL Creatinine 1.19 (0.66-1.25) mg/dL Estimated GFR 67.8 ML/MIN Glucose 270 H (74-106) mg/dL Calcium 9.2 (8.4-10.2) mg/dL Magnesium 1.9 (1.6-2.3) mg/dL Total Bilirubin 1.70 H (0.2-1.3) mg/dL AST 63 H (17-59) U/L ALT 85 H (0-50) U/L Alkaline Phosphatase 177 H (38-126) U/L Troponin I 0.128 H* (0.000-0.033) ng/mL NT-Pro-B Natriuret Pep 67605 (<300) pg/mL Serum Total Protein 6.8 (6.3-8.2) g/dL Albumin 3.9 (3.5-5.0) g/dL Urine Color Yellow (Yellow) Urine Appearance Clear (Clear) Urine pH 6.0 (4.6-8.0) Ur Specific [place] 1.025 (1.005-1.030) Urine Protein 300 A (Negative) Urine Glucose (UA) >=1000 A (Negative) mg/dL Urine Ketones Trace A (Negative) Urine Blood Moderate A (Negative) Urine Nitrite Negative (Negative) Urine Bilirubin Negative (Negative) Urine Urobilinogen 1.0 A (0.2) mg/dL Ur Leukocyte Esterase Negative (Negative) U Hyaline Cast (Auto) NONE SEEN (0-2) /LPF Urine Microscopic RBC 11-20 A (0-5) /HPF Urine Microscopic WBC 0-2 (0-5) /HPF Ur Epithelial Cells None Seen (None Seen) /HPF Urine Bacteria None Seen (None Seen) /HPF Urine Culture Reflexed YES (NO) Influenza Type A Ag (NEGATIVE) Influenza Type B Ag (NEGATIVE) RSV (PCR) (NEGATIVE) SARS-CoV-2 (PCR) (NEGATIVE) 06/08/24 06/08/24 Range/Units 09:38 09:38 WBC 6.3 (4.23-9.07) x10^3/uL RBC 3.93 L (4.63-6.08) x10^6/uL Hgb 11.2 L (13.7-17.5) g/dL Hct 33.8 L (40.1-51.0) % MCV 86.0 (79.0-92.2) fL MCH 28.5 (25.7-32.2) pg MCHC 33.1 (32.3-36.5) g/dL RDW 14.9 H (11.6-14.4) % Plt Count 191 (163-337) x10^3/uL MPV 10.1 (9.4-12.4) fL Gran % 80.7 H (34.0-67.9) % Immature Gran % (Auto) 0.3 (0.001-0.429) % Nucleat RBC Rel Count 0.0 (0.00-0.2) % Eos # (Auto) 0.02 L (0.04-0.54) x10^3/uL Immature Gran # (Auto) 0.02 (0.001-0.031) x10^3u/L Absolute Lymphs (auto) 0.70 L (1.32-3.57) x10^3/uL Absolute Monos (auto) 0.44 (0.30-0.82) x10^3/uL Absolute Nucleated RBC 0.00 (0.00-0.012) x10^3u/L Lymphocytes % 11.1 L (21.8-53.1) % Monocytes % 7.0 (5.3-12.2) % Eosinophils % 0.3 L (0.8-7.0) % Basophils % 0.6 (0.2-1.2) % Absolute Granulocytes 5.09 (1.78-5.38) x10^3/uL Basophils # 0.04 (0.01-0.08) x10^3/uL Sodium (135-145) mmol/L Potassium (3.5-5.1) mmol/L Chloride (98-107) mmol/L Carbon Dioxide (22-30) mmol/L Anion Gap (5-15) MEQ/L BUN (9-20) mg/dL Creatinine (0.66-1.25) mg/dL Estimated GFR ML/MIN Glucose (74-106) mg/dL Calcium (8.4-10.2) mg/dL Magnesium (1.6-2.3) mg/dL Total Bilirubin (0.2-1.3) mg/dL AST (17-59) U/L ALT (0-50) U/L Alkaline Phosphatase (38-126) U/L Troponin I (0.000-0.033) ng/mL NT-Pro-B Natriuret Pep (<300) pg/mL Serum Total Protein (6.3-8.2) g/dL Albumin (3.5-5.0) g/dL Urine Color (Yellow) Urine Appearance (Clear) Urine pH (4.6-8.0) Ur Specific [place] (1.005-1.030) Urine Protein (Negative) Urine Glucose (UA) (Negative) mg/dL Urine Ketones (Negative) Urine Blood (Negative) Urine Nitrite (Negative) Urine Bilirubin (Negative) Urine Urobilinogen (0.2) mg/dL Ur Leukocyte Esterase (Negative) U Hyaline Cast (Auto) (0-2) /LPF Urine Microscopic RBC (0-5) /HPF Urine Microscopic WBC (0-5) /HPF Ur Epithelial Cells (None Seen) /HPF Urine Bacteria (None Seen) /HPF Urine Culture Reflexed (NO) Influenza Type A Ag NEGATIVE (NEGATIVE) Influenza Type B Ag NEGATIVE (NEGATIVE) RSV (PCR) NEGATIVE (NEGATIVE) SARS-CoV-2 (PCR) NEGATIVE (NEGATIVE) - Progress Progress: improved Progress Note: Patient was stable throughout stay. I gave him his blood pressure medicine his blood pressure went down to 120/80. He said his headache was going away. We gave him some Toradol that helped. He said is still a mild headache he feels some pressure. I went to send him home with a couple [place]'s. At this time I do not think there is anything significant going on that worrisome. On the differential was tension headache, migraine headache, infectious process. He did have any signs or symptoms of anything like a subarachnoid hemorrhage or anything more ominous. 06/08/24 13:13 Medical Desision Making - Social Determinants of Health Pt's dx & treatment plan are significantly limited by SDOH: limited education Limited access to: transportation - Diagnostic Testing Diagnostic test were ordered, analyzed, and reviewed by me: Yes Radiological Interpretation: Reviewed by me - Risk of complications Minimal Risk: Minimal risk of morbidity - Departure Departure Disposition: Home Clinical Impression: Tension headache Condition: Stable Critical Care Time: No Referrals: ROGELIO CAVAZOS DO [Primary Care Provider] - Follow up/PCP as directed
[2024-06-08 09:53] LABS: Absolute Neutrophil Ct (ANC) 5.09 x10^3/uL (1.78-5.38); BASOPHIL % 0.6 % (0.2-1.2); Basophil (Absolute #) 0.04 x10^3/uL (0.01-0.08); Eosinophil % 0.3 % (0.8-7.0); Eosinophil (Absolute #) 0.02 x10^3/uL (0.04-0.54); Hematocrit 33.8 % (40.1-51.0); Hemoglobin 11.2 g/dL (13.7-17.5); IMMATURE GRAN # 0.02 x10^3u/L (0.001-0.031); IMMATURE GRAN % 0.3 % (0.001-0.429); Lymphocytes % 11.1 % (21.8-53.1); Mean Corpuscular Hemoglobin 28.5 pg (25.7-32.2); Mean Corpuscular Hgb Concent. 33.1 g/dL (32.3-36.5); Mean Platelet Volume 10.1 fL (9.4-12.4); Monocyte (Absolute #) 0.44 x10^3/uL (0.30-0.82); Neutrophil % 80.7 % (34.0-67.9); Platelet Count 191 x10^3/uL (163-337); Red Blood Count 3.93 x10^6/uL (4.63-6.08); Red Cell Distribution Width 14.9 % (11.6-14.4); White Blood Count 6.3 x10^3/uL (4.23-9.07)
[2024-06-08] MEDS: COREG 12.5 MG PO SCH (09:53)
[2024-06-08] MEDS: Zestril 20 MG PO ONE (09:53)
[2024-06-08 10:21] LABS: ALBUMIN 3.9 g/dL (3.5-5.0); ANION GAP 15.8 MEQ/L (5-15); BILIRUBIN,TOTAL 1.7 mg/dL (0.2-1.3); Calcium 9.2 mg/dL (8.4-10.2); Creatinine 1 1.19 mg/dL (0.66-1.25); EST GLOMERULAR FILTRATION RATE 67.8 ML/MIN; MAGNESIUM 1.9 mg/dL (1.6-2.3); Potassium 4.8 mmol/L (3.5-5.1); Total Protein 6.8 g/dL (6.3-8.2)
--- NOTE | 2024-06-08 10:23 | XRAY ---
Indication: Cough. Comparison: May 31, 2024 Portable apical lordotic chest remains inflated and clear again with a few incidental tiny calcified granulomas. Heart not enlarged again with left pacemaker. Bony thorax intact again with osteopenia and mild degenerative changes. Impression: Continued nonacute chest with chronic features.
[2024-06-08 10:28] LABS: INFLUENZA A NEGATIVE (NEGATIVE); INFLUENZA B NEGATIVE (NEGATIVE); RESPIRATORY SYNCTIAL VIRUS NEGATIVE (NEGATIVE); SARS-CoV-2 Xpert Express NEGATIVE (NEGATIVE)
[2024-06-08 11:21] LABS: Appearance Clear (Clear); Bacteria None Seen /HPF (None Seen); Bilirubin Negative (Negative); Blood Moderate (Negative); Epithelial Cells None Seen /HPF (None Seen); Glucose, Urine >=1000 mg/dL (Negative); Hyaline Casts NONE SEEN /LPF (0-2); Ketones Trace (Negative); Leukocyte Esterase Negative (Negative); Nitrite Negative (Negative); Protein,Urine Dip 300 (Negative); Specific Gravity 1.025 (1.005-1.030); WBC 0-2 /HPF (0-5)
[2024-06-08] MEDS ORDERED: TORAdol 30 mg Injection ONE (12:52)
[2024-06-08] MEDS: TORAdol 30 mg Injection IV ONE (12:53)
[2024-06-08 13:16] VITALS: O2SAT 99
[2024-06-08 13:17] VITALS: BP 123/84; PULSE 77; RESP 17
== END 2024-06-08 13:20 | disposition home or self-care (01) ==
LOC: ED 09:24
DX: G44.209 Tension-type headache, unspecified, not intractable (principal); R53.83 Other fatigue; M79.10 Myalgia, unspecified site; R06.02 Shortness of breath; E11.42 Type 2 diabetes mellitus with diabetic polyneuropathy; I11.0 Hypertensive heart disease with heart failure; I50.9 Heart failure, unspecified; E78.5 Hyperlipidemia, unspecified; Z79.84 Long term (current) use of oral hypoglycemic drugs; Z79.4 Long term (current) use of insulin; Z79.899 Other long term (current) drug therapy; Z55.9 Problems related to education and literacy, unspecified; Z59.82 Transportation insecurity
CPT/HCPCS: 0241U; 36415; 71045; 80053; 81001; 83735; 83880; 84484; 85025; 87086; 93005; 96374; 99284; J1885; A9270-GY

== ENCOUNTER 2024-06-15 09:54 | Emergency (ER) | payer MEDICARE ==
[2024-06-15] MEDS ORDERED: ENALAPRILAT 2.5 MG INJECTION IV ONE (10:14)
[2024-06-15] MEDS: ENALAPRILAT 2.5 MG INJECTION IV ONE (10:18)
--- NOTE | 2024-06-15 10:18 | ERPHSYRPT ---
- History of Present Illness Source: patient Exam Limitations: no limitations Physician History: Patient said he had a headache. It was diffuse and felt like pressure. He woke up with it. He decided take his blood pressure noticed it was high is around 170 systolic. He has not taken any of his blood pressure medicines. He said he has some chest pressure. I saw him here about 4 days ago for same thing. He said that the chest pain is feeling better. Nothing makes symptoms better or worse. He was worried about his blood pressure mainly. He is not short of breath.He does not have any abdominal pain or neurological symptoms either. Nitro Today/Relief: no nitro taken today Aspirin Treatment Today: no aspirin today Associated Symptoms: denies symptoms Allergies/Adverse Reactions: diphenhydramine [From Benadryl] Allergy (Verified 06/15/24 09:59) Difficulty Breathing Iodinated Contrast Media Allergy (Verified 06/15/24 09:59) Difficulty Breathing Home Medications: Duloxetine HCl [Cymbalta] 60 mg PO BID 07/28/23 [History] Insulin Glargine [Lantus Insulin] 50 unit SQ BID 07/28/23 [History] Ropinirole 2Mg [Requip 2Mg Tab] 2 mg PO HS 07/28/23 [History] Empagliflozin [Jardiance] 25 mg PO DAILY 01/29/24 [History] Insulin Lispro [Humalog] 0 unit SQ ACHS 05/07/24 [History] Lisinopril 10 mg [Zestril 10 MG] 10 mg PO HS 05/31/24 [History] Trazodone HCl 50 mg [Desyrel 50 mg] 50 mg PO HS 06/08/24 [History] Hx Tetanus, Diphtheria Vaccination/Date Given: Yes Hx Influenza Vaccination/Date Given: Yes Hx Pneumococcal Vaccination/Date Given: Yes Travel Risk - Emerging Infectious Disease Are you exhibiting symptoms associated with any current EIDs: Yes Symptoms: Headaches/Body Aches/ - Review of Systems Constitutional: No Symptoms Eyes: No Symptoms Ears, Nose, & Throat: No Symptoms Respiratory: No Symptoms Abdominal/Gastrointestinal: No Symptoms Genitourinary Symptoms: No Symptoms - Past Medical History Pertinent Past Medical History: Yes Neurological History: Peripheral Neuropathy, Stroke ENT History: Cataracts Cardiac History: Arrhythmia, Congestive Heart Failure, High Cholesterol, Hypertension Respiratory History: CHF, COPD, Sleep Apnea Endocrine Medical History: Diabetes Type II Musculoskeletal History: Arthritis, Osteoarthritis, Other GI Medical History: GERD, Gallbladder Disease History: Renal Disease Psycho-Social History: Anxiety, Depression Male Reproductive Disorders: No Pertinent History Other Medical History: a.fib, restless leg, bulging discs cervical spine, carpal tunnel, 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 - Past Surgical History Past Surgical History: Yes Neuro Surgical History: No Pertinent History Cardiac: Pacemaker Respiratory: No Pertinent History Gastrointestinal: Cholecystectomy Genitourinary: No Pertinent History Musculoskeletal: Amputation Male Surgical History: No Pertinent History Other Surgical History: cardiac ablation, 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, Right hand 1st/2nd partial amputations Significant Family History: no pertinent family hx (No family history pertaining to this admission reported) - Social History Smoking Status: Never smoker Exposure to second hand smoke: Yes Drug Use: none Patient Lives Alone: No - Social Determinants of Health Will the patient participate in the screening: Declined to provide - Nursing Vital Signs Nursing Vital Signs: Initial Vital Signs Temperature 97.7 F 06/15/24 09:55 Pulse Rate 71 06/15/24 09:55 Respiratory Rate 12 06/15/24 09:55 Blood Pressure 186/112 06/15/24 09:55 O2 Sat by Pulse Oximetry 98 06/15/24 09:55 Pain Scale Pain Intensity 0 - Physical Exam General Appearance: no apparent distress Eye Exam: PERRL/EOMI, eyes nml inspection Ears, Nose, Throat Exam: normal ENT inspection, TMs normal, pharynx normal Respiratory Exam: normal breath sounds, chest tenderness, lungs clear, respiratory distress Cardiovascular Exam: regular rate/rhythm, normal heart sounds, normal peripheral pulses Gastrointestinal/Abdomen Exam: soft, normal bowel sounds Neurologic Exam: alert, oriented x 3, cooperative, 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 There is no axis deviation.) Ordered Tests: Active Orders 24 hr Category Date Time Status EKG-ER Only STAT Care 06/15/24 10:11 Active IV Insertion STAT Care 06/15/24 11:29 Active ACO SDOH Referral ONCE Cons 06/15/24 10:32 Active CBC W DIFF Stat Lab 06/15/24 10:20 Completed CMP Stat Lab 06/15/24 10:20 Completed POCT GLUCOSE Stat Lab 06/15/24 12:01 Completed POCT GLUCOSE Stat Lab 06/15/24 13:01 Completed POCT GLUCOSE Stat Lab 06/15/24 13:56 Completed POCT GLUCOSE Stat Lab 06/15/24 14:52 Completed POCT GLUCOSE Stat Lab 06/15/24 15:28 Completed POCT GLUCOSE Stat Lab 06/15/24 16:03 Received TROPONIN Q4H Lab 06/15/24 10:20 Completed TROPONIN Q4H Lab 06/15/24 12:45 Completed TROPONIN Q4H Lab 06/15/24 18:15 Ordered Medication Summary Discontinued Medications Generic Name Dose Route Start Last Admin Trade Name Freq PRN Reason Stop Dose Admin Carvedilol 12.5 mg 06/15/24 10:19 06/15/24 10:31 Carvedilol 12.5 Mg Tablet PO 06/15/24 10:20 12.5 mg STAT ONE Administration Enalaprilat 2.5 mg 06/15/24 10:12 06/15/24 10:18 Enalaprilat 2.5 Mg Injection IV 06/15/24 10:13 Not Given STAT ONE Enalaprilat Confirm 06/15/24 10:14 Enalaprilat 2.5 Mg Injection Administered 06/15/24 10:15 Dose 2.5 mg IV .STK-MED ONE Sodium Chloride 1,000 mls @ 999 mls/hr 06/15/24 11:01 06/15/24 12:25 Sodium Chloride 0.9% 1000 Ml IV 06/15/24 12:01 Infused .Q1H1M STA Infusion Sodium Chloride Confirm 06/15/24 11:19 Sodium Chloride 0.9% 1000 Ml Administered 06/15/24 11:20 Dose 1,000 mls @ ud .ROUTE .STK-MED ONE Insulin Human Regular 20 unit 06/15/24 10:44 06/15/24 10:57 Insulin Regular, Human 1 Unit SQ 06/15/24 10:45 20 unit STAT ONE Administration Insulin Human Regular Confirm 06/15/24 10:57 Insulin Regular, Human 1 Unit Administered 06/15/24 10:58 Dose 20 unit .ROUTE .STK-MED ONE Insulin Human Regular 10 unit 06/15/24 12:17 06/15/24 12:28 Insulin Regular, Human 1 Unit IV 06/15/24 12:18 10 unit STAT ONE Administration Insulin Human Regular Confirm 06/15/24 12:27 Insulin Regular, Human 1 Unit Administered 06/15/24 12:28 Dose 10 unit .ROUTE .STK-MED ONE Insulin Human Regular 20 unit 06/15/24 14:11 06/15/24 14:17 Insulin Regular, Human 1 Unit IV 06/15/24 14:12 20 unit STAT ONE Administration Insulin Human Regular Confirm 06/15/24 14:17 Insulin Regular, Human 1 Unit Administered 06/15/24 14:18 Dose 20 unit .ROUTE .STK-MED ONE Lisinopril 10 mg 06/15/24 10:19 06/15/24 10:31 Lisinopril 10 Mg Tablet PO 06/15/24 10:20 10 mg STAT STA Administration Lab/Rad Data: Laboratory Result Diagrams 06/15/24 10:20 06/15/24 10:20 Laboratory Results 06/15/24 06/15/24 06/15/24 Range/Units 15:28 14:52 13:56 WBC (4.23-9.07) x10^3/uL RBC (4.63-6.08) x10^6/uL Hgb (13.7-17.5) g/dL Hct (40.1-51.0) % MCV (79.0-92.2) fL MCH (25.7-32.2) pg MCHC (32.3-36.5) g/dL RDW (11.6-14.4) % Plt Count (163-337) x10^3/uL MPV (9.4-12.4) fL Gran % (34.0-67.9) % Immature Gran % (Auto) (0.001-0.429) % Nucleat RBC Rel Count (0.00-0.2) % Eos # (Auto) (0.04-0.54) x10^3/uL Immature Gran # (Auto) (0.001-0.031) x10^3u/L Absolute Lymphs (auto) (1.32-3.57) x10^3/uL Absolute Monos (auto) (0.30-0.82) x10^3/uL Absolute Nucleated RBC (0.00-0.012) x10^3u/L Lymphocytes % (21.8-53.1) % Monocytes % (5.3-12.2) % Eosinophils % (0.8-7.0) % Basophils % (0.2-1.2) % Absolute Granulocytes (1.78-5.38) x10^3/uL Basophils # (0.01-0.08) x10^3/uL Sodium (135-145) mmol/L Potassium (3.5-5.1) mmol/L Chloride (98-107) mmol/L Carbon Dioxide (22-30) mmol/L Anion Gap (5-15) MEQ/L BUN (9-20) mg/dL Creatinine (0.66-1.25) mg/dL Estimated GFR ML/MIN Glucose (74-106) mg/dL POC Glucometer 96 111 H 323 H (74 to 106) mg/dL Calcium (8.4-10.2) mg/dL Total Bilirubin (0.2-1.3) mg/dL AST (17-59) U/L ALT (0-50) U/L Alkaline Phosphatase (38-126) U/L Troponin I (0.000-0.033) ng/mL Serum Total Protein (6.3-8.2) g/dL Albumin (3.5-5.0) g/dL 06/15/24 06/15/24 06/15/24 Range/Units 13:01 12:45 12:01 WBC (4.23-9.07) x10^3/uL RBC (4.63-6.08) x10^6/uL Hgb (13.7-17.5) g/dL Hct (40.1-51.0) % MCV (79.0-92.2) fL MCH (25.7-32.2) pg MCHC (32.3-36.5) g/dL RDW (11.6-14.4) % Plt Count (163-337) x10^3/uL MPV (9.4-12.4) fL Gran % (34.0-67.9) % Immature Gran % (Auto) (0.001-0.429) % Nucleat RBC Rel Count (0.00-0.2) % Eos # (Auto) (0.04-0.54) x10^3/uL Immature Gran # (Auto) (0.001-0.031) x10^3u/L Absolute Lymphs (auto) (1.32-3.57) x10^3/uL Absolute Monos (auto) (0.30-0.82) x10^3/uL Absolute Nucleated RBC (0.00-0.012) x10^3u/L Lymphocytes % (21.8-53.1) % Monocytes % (5.3-12.2) % Eosinophils % (0.8-7.0) % Basophils % (0.2-1.2) % Absolute Granulocytes (1.78-5.38) x10^3/uL Basophils # (0.01-0.08) x10^3/uL Sodium (135-145) mmol/L Potassium (3.5-5.1) mmol/L Chloride (98-107) mmol/L Carbon Dioxide (22-30) mmol/L Anion Gap (5-15) MEQ/L BUN (9-20) mg/dL Creatinine (0.66-1.25) mg/dL Estimated GFR ML/MIN Glucose (74-106) mg/dL POC Glucometer 366 H 415 H (74 to 106) mg/dL Calcium (8.4-10.2) mg/dL Total Bilirubin (0.2-1.3) mg/dL AST (17-59) U/L ALT (0-50) U/L Alkaline Phosphatase (38-126) U/L Troponin I 0.103 H* (0.000-0.033) ng/mL Serum Total Protein (6.3-8.2) g/dL Albumin (3.5-5.0) g/dL 06/15/24 06/15/24 06/15/24 Range/Units 10:20 10:20 10:20 WBC 6.5 (4.23-9.07) x10^3/uL RBC 4.01 L (4.63-6.08) x10^6/uL Hgb 11.4 L (13.7-17.5) g/dL Hct 34.6 L (40.1-51.0) % MCV 86.3 (79.0-92.2) fL MCH 28.4 (25.7-32.2) pg MCHC 32.9 (32.3-36.5) g/dL RDW 15.1 H (11.6-14.4) % Plt Count 203 (163-337) x10^3/uL MPV 10.5 (9.4-12.4) fL Gran % 81.9 H (34.0-67.9) % Immature Gran % (Auto) 0.3 (0.001-0.429) % Nucleat RBC Rel Count 0.0 (0.00-0.2) % Eos # (Auto) 0.05 (0.04-0.54) x10^3/uL Immature Gran # (Auto) 0.02 (0.001-0.031) x10^3u/L Absolute Lymphs (auto) 0.72 L (1.32-3.57) x10^3/uL Absolute Monos (auto) 0.33 (0.30-0.82) x10^3/uL Absolute Nucleated RBC 0.00 (0.00-0.012) x10^3u/L Lymphocytes % 11.1 L (21.8-53.1) % Monocytes % 5.1 L (5.3-12.2) % Eosinophils % 0.8 (0.8-7.0) % Basophils % 0.8 (0.2-1.2) % Absolute Granulocytes 5.32 (1.78-5.38) x10^3/uL Basophils # 0.05 (0.01-0.08) x10^3/uL Sodium 131 L (135-145) mmol/L Potassium 5.1 (3.5-5.1) mmol/L Chloride 95 L (98-107) mmol/L Carbon Dioxide 25 (22-30) mmol/L Anion Gap 16.0 H (5-15) MEQ/L BUN 32 H (9-20) mg/dL Creatinine 1.06 (0.66-1.25) mg/dL Estimated GFR 77.9 ML/MIN Glucose 457 H (74-106) mg/dL POC Glucometer (74 to 106) mg/dL Calcium 9.5 (8.4-10.2) mg/dL Total Bilirubin 1.20 (0.2-1.3) mg/dL AST 36 (17-59) U/L ALT 58 H (0-50) U/L Alkaline Phosphatase 217 H (38-126) U/L Troponin I 0.114 H* (0.000-0.033) ng/mL Serum Total Protein 7.3 (6.3-8.2) g/dL Albumin 4.1 (3.5-5.0) g/dL - Progress Progress: improved Air Movement: good Progress Note: Patient was stable throughout stay. His blood pressure went down after we gave him some of his medications including carvedilol and lisinopril. His breathing was never labored. An x-ray showed no acute findings. His lab work all look good. His troponin was low bit elevated but it always is. He did not appear to be in any kind of heart failure or anything like that. His sugars were elevated. I gave him a liter of fluid and some regular insulin. Given 2 doses 1 of 20 units subcu and then 1 of 10 units IV. His sugars were beginning to normalize while we observed him. His electrolytes all look good.His sugar went down to 100 and so we observed him for a while. It seemed to normalize back to where his baseline is. On the differential was congestive heart failure, coronary vascular event, COVID flu RSV and pneumonia.This time I think he is just having a hypertensive episode. 06/15/24 13:55 06/15/24 15:50 Blood Culture(s) Obtained: No Antibiotics given: No Medical Desision Making - Social Determinants of Health Pt's dx & treatment plan are significantly limited by SDOH: homelessness (The patient is about to be evicted from his home.), limited education - Diagnostic Testing Diagnostic test were ordered, analyzed, and reviewed by me: Yes Radiological Interpretation: Reviewed by me - Risk of complications Low Risk: Low risk of morbidity from additional dx testing or treatment - Departure Departure Disposition: Home Clinical Impression: Hyperglycemia, Hypertension Condition: Good Critical Care Time: No Referrals: ROGELIO CAVAZOS DO [Primary Care Provider] - Follow up/PCP as directed Instructions: Malignant Hypertension (DC), Why Taking Your Medicine or Drug as Ordered Is Important Additional Instructions: Watch her sugars closely and take your insulin as needed.
[2024-06-15 10:25] LABS: Absolute Neutrophil Ct (ANC) 5.32 x10^3/uL (1.78-5.38); BASOPHIL % 0.8 % (0.2-1.2); Basophil (Absolute #) 0.05 x10^3/uL (0.01-0.08); Eosinophil % 0.8 % (0.8-7.0); Eosinophil (Absolute #) 0.05 x10^3/uL (0.04-0.54); Hematocrit 34.6 % (40.1-51.0); Hemoglobin 11.4 g/dL (13.7-17.5); IMMATURE GRAN # 0.02 x10^3u/L (0.001-0.031); IMMATURE GRAN % 0.3 % (0.001-0.429); Lymphocyte (Absolute #) 0.72 x10^3/uL (1.32-3.57); Lymphocytes % 11.1 % (21.8-53.1); Mean Cell Volume 86.3 fL (79.0-92.2); Mean Corpuscular Hemoglobin 28.4 pg (25.7-32.2); Mean Corpuscular Hgb Concent. 32.9 g/dL (32.3-36.5); Mean Platelet Volume 10.5 fL (9.4-12.4); Monocyte (Absolute #) 0.33 x10^3/uL (0.30-0.82); Monocytes % 5.1 % (5.3-12.2); Neutrophil % 81.9 % (34.0-67.9); Platelet Count 203 x10^3/uL (163-337); Red Blood Count 4.01 x10^6/uL (4.63-6.08); Red Cell Distribution Width 15.1 % (11.6-14.4); White Blood Count 6.5 x10^3/uL (4.23-9.07)
[2024-06-15] MEDS: Zestril 10 MG PO STA (10:31)
[2024-06-15] MEDS: COREG 12.5 MG PO ONE (10:31)
[2024-06-15 10:32] VITALS: TEMP 97.7
[2024-06-15 10:38] LABS: ALBUMIN 4.1 g/dL (3.5-5.0); BILIRUBIN,TOTAL 1.2 mg/dL (0.2-1.3); Calcium 9.5 mg/dL (8.4-10.2); Creatinine 1 1.06 mg/dL (0.66-1.25); EST GLOMERULAR FILTRATION RATE 77.9 ML/MIN; Potassium 5.1 mmol/L (3.5-5.1); Total Protein 7.3 g/dL (6.3-8.2)
[2024-06-15] MEDS: HUMULIN R SQ ONE (10:57)
[2024-06-15] MEDS ORDERED: HUMULIN R ONE ×3 (10:57→14:17)
[2024-06-15] MEDS ORDERED: Sodium Chloride 0.9% 1000 ML 1,000 ML ONE (11:19)
[2024-06-15] MEDS: Sodium Chloride 0.9% 1000 ML 1,000 ML IV STA (11:20)
[2024-06-15] MEDS: HUMULIN R IV ONE ×2 (12:28→14:17)
[2024-06-15 15:44] VITALS: O2SAT 97
[2024-06-15 16:04] VITALS: BP 133/76; PULSE 78; RESP 18
== END 2024-06-15 16:16 | disposition home or self-care (01) ==
LOC: ED 09:54
DX: E11.65 Type 2 diabetes mellitus with hyperglycemia (principal); I11.0 Hypertensive heart disease with heart failure; I50.9 Heart failure, unspecified; R51.9 Headache, unspecified; R07.9 Chest pain, unspecified; E11.42 Type 2 diabetes mellitus with diabetic polyneuropathy; E78.5 Hyperlipidemia, unspecified; Z79.4 Long term (current) use of insulin; Z79.84 Long term (current) use of oral hypoglycemic drugs; Z79.899 Other long term (current) drug therapy; Z59.811 Housing instability, housed, with risk of homelessness; Z55.9 Problems related to education and literacy, unspecified
CPT/HCPCS: 36000; 36415; 80053; 82947; 84484; 85025; 93005; 96360; 96372; 96374; 96376; 99285; J1815; A9270-GY